=== PATIENT | female | born 1980 | race Caucasian/White ===

== ENCOUNTER 2024-02-03 14:27 | Inpatient (IN) ==
[2024-02-03] MEDS: MoRPHine SULFATE 4 MG/ML 1 ML CARP\\VIAL IV STA (15:44)
--- NOTE | 2024-02-03 15:46 | Emergency Department Note ---
Impression & Plan Acute diverticulitis, Abdominal pain, Anemia ED Provider Note NAME: ANDREA MCBRIDE AGE: 43 SEX: F : 1980 ARRIVES VIA: Ambulance INFORMANT: Patient, ED PROVIDER(S): Franc De Leon MD CHIEF COMPLAINT: Abdominal pain MEDICAL DECISION MAKING: Patient presents due to concern for abdominal pain. IV was established and blood work was obtained. Patient reportedly to CT earlier today and records were attempted to be obtained. Patient ordered chest and abdominal x-rays to evaluate for possible free air given the patient is tender. Patient's blood work shows a normal white count. Anemia noted with a hemoglobin of 9. No priors for comparison with a normal platelet count. Kidney function is unremarkable urinalysis negative for blood or infection. Patient's plain films are unremarkable. I was able to receive the report from [facility] which showed chronic stranding and phlegmonous change without a definable fluid collection. Was also noted the left ovarian cyst. Patient did improvement after receiving IV morphine. I did message communicate with Dr. Kiran Higgins with general surgery the patient would be admitted to the medicine service. The patient was ordered IV Zosyn. Patient's pain has resolved after the pain medication. I did speak with Dr. Shukla with inpatient medicine service patient was admitted to the medicine service. Discussion w/ other healthcare providers: Dr. Kiran Higgins general surgery service Dr. Shukla inpatient medicine service Prior /Outside records reviewed: None Differential diagnosis: Appendicitis, ovarian cyst, ovarian torsion, ectopic , TOA, PID, diverticulitis, UTI, obstruction, inflammatory bowel disease, renal colic, PUD, pancreatitis, biliary pathology, hernia, volvulus, constipation, as well as other pathologies were considered. Diagnostics, as interpreted by me: ECG: None Cardiac monitoring: An order was placed for continuous cardiac monitoring. The monitor shows a rate of 102 with tachycardic and regular rhythm. Patient was placed on pulse oximetry Medical decision rules: None Imaging studies: I informally interpreted the patient's chest and abdominal series does not show obvious free air with formal report to follow. HPI: Patient presents due to concern for abdominal pain. Patient reports that she was seen at [facility] do boys earlier today and did have blood work completed along with CT abdomen pelvis and was told that she had inflammation of the intestines but no other concerning findings like appendicitis or diverticulitis. The patient reports a prior bout of diverticulitis David follow-up with general surgery tomorrow. Patient states that her pain was fairly tolerable but upon leaving the emergency department at [facility] the patient developed some worsening pain and upon getting home felt so much pain as though she was going to pass out as she got lightheaded and dizzy. The patient states that she was able to sit in a recliner but given that her pain was 10 out of 10 and went from her periumbilical area to her vaginal area. Patient called EMS and then presented here for further evaluation treatment. She did receive fentanyl and route. Patient states that this did improve but she is having recurrence of pain. Patient denies any vaginal bleeding or discharge. LMP was about 2 weeks ago and normal for her. Patient denies any falls or trauma. She does report that she has had some chronic abdominal pain that began about 2 weeks ago insidious in nature but seem to get progressively worse and why she presented to [facility] emergency department today. PAST MEDICAL HISTORY: See Below PAST SURGICAL HISTORY: See Below SOCIAL HISTORY: See Below HOME MEDICATIONS: See Below ALLERGIES: See Below VITALS: See Below PHYSICAL EXAMINATION: GENERAL: NAD, non-toxic. EYE EXAM: Normal conjunctiva. PERRL, no anisocoria and EOM's grossly intact w/o pain. OROPHARYNX: Moist mucus membranes, grossly normal dentition. NECK: Trachea midline, no stridor. LUNGS: Clear to auscultation. Normal chest wall mechanics. HEART: NSR, no MRG. ABDOMEN: Abdomen soft, diffuse abdominal pain, no masses, no rebound or guarding. BACK: No CVA TTP. SKIN: No rashes and no bruising. UPPER EXTREMITIES: Upper extremities are grossly normal. LOWER EXTREMITIES: Grossly normal, no edema. NEURO EXAM: A&O x3, cranial nerves II-XII grossly intact, normal speech, moves all 4 extremities. Past Med/Surg History Problem List (Updated 02/04/24 @ 11:06 by Franc De Leon MD) Anemia (Acute) Abdominal pain (Acute) Gastric bypass status for obesity Acute diverticulitis (Acute) Social History Smoking Status: Unknown if ever smoked Hx Alcohol Use: No Hx Substance Use: No Preferred Language: Swedish Communication Ability: Effective Cigar Head Pegger Required: No Beliefs That Will Affect Care: None Current Living Situation: Family Other Information That Helps Us Care for You: No Feels Safe at Home: Yes Safety Concerns: Feels Safe At This Time Assistive Devices: None Allergies Allergies Allergy/AdvReac Type Severity Reaction Status Date / Time No Known Allergies Allergy Unverified 02/03/24 15:44 Home Meds Home Medications Medication Instructions Recorded Confirmed No Known Home Medications 02/03/24 02/03/24 Results & Data (ED) Vital Signs Vital Signs - 24 hr 02/03/24 14:28 02/03/24 14:40 02/03/24 15:38 Temperature 37.4 C Temperature Source Oral Pulse Rate 88 86 Pulse Rate [Right] Respiratory Rate 16 Respiratory Effort / Characteristics Non-Labored Spontaneous Respiratory Depth Normal Respiratory Pattern Regular Blood Pressure 110/68 Blood Pressure [Right Arm] Blood Pressure Mean 82 Blood Pressure Mean [Right Arm] Pulse Oximetry 97 Oxygen Delivery Method Room Air Room Air Sepsis Recent Fever Within 48 Hours No Sepsis New/Unexplained Change in Mental Status N/A Sepsis Action Taken by Nursing No Action Required 02/03/24 15:42 02/03/24 16:31 02/03/24 17:42 Temperature Temperature Source Pulse Rate Pulse Rate [Right] 92 H 110 H 118 H Respiratory Rate 20 24 16 Respiratory Effort / Characteristics Non-Labored Spontaneous Non-Labored Spontaneous Non-Labored Spontaneous Respiratory Depth Normal Normal Normal Respiratory Pattern Regular Regular Regular Blood Pressure Blood Pressure [Right Arm] 101/68 100/73 109/73 Blood Pressure Mean Blood Pressure Mean [Right Arm] 79 82 85 Pulse Oximetry 100 93 96 Oxygen Delivery Method Room Air Room Air Room Air Sepsis Recent Fever Within 48 Hours Sepsis New/Unexplained Change in Mental Status Sepsis Action Taken by Nursing 02/03/24 18:09 Temperature Temperature Source Pulse Rate 126 H Pulse Rate [Right] Respiratory Rate Respiratory Effort / Characteristics Respiratory Depth Respiratory Pattern Blood Pressure Blood Pressure [Right Arm] Blood Pressure Mean Blood Pressure Mean [Right Arm] Pulse Oximetry Oxygen Delivery Method Sepsis Recent Fever Within 48 Hours Sepsis New/Unexplained Change in Mental Status Sepsis Action Taken by Usp Medications Current Medication List: was personally reviewed by me Laboratory Data Attestation: I reviewed the patient's lab results. 02/04/24 07:22 02/04/24 07:22 Lab Results 02/03/24 02/03/24 Range/Units 14:35 15:10 WBC 8.25 (4.8-10.8) K/ul RBC 3.74 L (4.20-5.40) M/uL Hgb 9.2 L (12.0-16.0) g/dl Hct 29.6 L (37.0-47.0) % MCV 79.1 L (80.0-100.0) fL MCH 24.6 L (25.0-34.0) pg MCHC 31.1 L (32.0-36.0) g/dL RDW Std Deviation 43.3 (36.4-46.3) fL RDW Coeff of Mita 15.0 H (11.5-14.5) % Plt Count 326 (130-400) K/uL MPV 9.9 (9.4-12.4) fL Immature Gran % (Auto) 0.2 % Neut % (Auto) 83.5 % Lymph % (Auto) 9.5 % Trigg % (Auto) 6.4 % Eos % (Auto) 0.2 % Baso % (Auto) 0.2 % Neut # (Auto) 6.88 H (1.40-6.50) K/uL Lymph # (Auto) 0.78 L (1.20-3.40) K/uL Trigg # (Auto) 0.53 (0.11-0.59) K/uL Eos # (Auto) 0.02 (0.00-0.50) K/uL Baso # (Auto) 0.02 (0.00-0.20) K/uL Immature Gran # (Auto) 0.02 (0.01-0.20) K/uL Sodium 138 (136-145) mmol/L Potassium 3.9 (3.5-5.1) mmol/L Chloride 105 (98-107) mmol/L Carbon Dioxide 27 (21-32) mmol/L Anion Gap 6 (3-11) BUN 10 (6-23) mg/dl Creatinine 0.64 (0.6-1.2) mg/dl Est Cr Clr Drug Dosing 123.0 ml/min eGFR 113.09 BUN/Creatinine Ratio 15.6 (10-20) Glucose 89 (70-99(Fasting)) mg/dl Calcium 8.7 (8.6-10.3) mg/dl Total Bilirubin 0.4 (0.2-1.0) mg/dl AST 13 (13-39) U/L ALT 18 (7-52) U/L Alkaline Phosphatase 80 (34-104) U/L Total Protein 6.7 (6.0-8.3) gm/dl Albumin 3.7 (3.4-5.0) gm/dl Globulin 3.0 (2.5-4.0) gm/dl Albumin/Globulin Ratio 1.2 (0.9-2) Lipase 18 (11-82) U/L Urine Color Yellow Urine Appearance Clear (Clear) Urine pH 6.5 (4.5-7.5) Ur Specific [place] > 1.045 H (1.000-1.030) Urine Protein Negative (Negative) Urine Glucose (UA) Negative (Negative) Urine Ketones Negative (Negative) Urine Blood Negative (Negative) Urine Nitrite Negative (Negative) Urine Bilirubin Negative (Negative) Urine Urobilinogen Negative (Negative) Ur Leukocyte Esterase Negative (Negative) Administered Medications Heparin Sodium (Porcine) (Heparin Sod 5,000 Unit/0.5 Ml Vial) 5,000 units SQ Q12 [facility] Stop: 03/04/24 20:59 Last Admin: 02/04/24 09:25 Dose: 5,000 units Documented By: Admin: 02/03/24 20:12 Dose: 5,000 units Documented By: MARK Piperacillin Sod/Tazobactam Sod (Zosyn) 4.5 gm in 100 mls @ 25 mls/hr IV Q8H [facility]; Protocol Stop: 02/13/24 22:59 Last Admin: 02/04/24 09:16 Dose: 25 mls/hr Documented By: Infusion: 02/04/24 03:34 Dose: Infused Documented By: Admin: 02/03/24 22:29 Dose: 25 mls/hr Documented By: VIOLETTE Lactated Ringer's (Lr) 1,000 mls @ 125 mls/hr IV .Q8H [facility] Stop: 02/04/24 19:14 Last Admin: 02/04/24 04:27 Dose: 125 mls/hr Documented By: Infusion: 02/04/24 03:40 Dose: Infused Documented By: Admin: 02/03/24 19:40 Dose: 125 mls/hr Documented By: MARK Lorazepam (Lorazepam 2 Mg/1 Ml Vial) 0.25 mg IV DAILY PRN PRN Reason: Anxiety Stop: 02/05/24 22:56 Last Admin: 02/04/24 09:13 Dose: 0.25 mg Documented By: Admin: 02/03/24 23:14 Dose: 0.25 mg Documented By: VIOLETTE Morphine Sulfate (Morphine Sulfate 4 Mg/Ml 1 Ml Carp\Vial) 3 mg IV Q4H PRN PRN Reason: Pain Stop: 02/17/24 19:12 Last Admin: 02/04/24 03:46 Dose: 3 mg Documented By: Admin: 02/03/24 23:13 Dose: 3 mg Documented By: VIOLETTE Ondansetron HCl (Ondansetron Inj 2 Mg/Ml 2 Ml Vial) 4 mg IV Q6H PRN PRN Reason: Nausea And Vomiting Stop: 03/04/24 19:12 Last Admin: 02/03/24 20:19 Dose: 4 mg Documented By: MAKR Discontinued Medications Piperacillin Sod/Tazobactam Sod (Zosyn) 4.5 gm in 100 mls @ 200 mls/hr IV NOW ONE; Protocol Stop: 02/03/24 18:56 Last Infusion: 02/03/24 19:54 Dose: Infused Documented By: Admin: 02/03/24 18:48 Dose: 200 mls/hr Documented By: SAMPSON Ioversol (Optiray 320 100ml) 100 ml IV ONCE ONE Stop: 02/04/24 06:10 Last Admin: 02/04/24 06:10 Dose: 93 ml Documented By: BALJEET Ketorolac Tromethamine (Ketorolac 30 Mg/Ml Vial) 30 mg IV NOW ONE Stop: 02/04/24 05:48 Last Admin: 02/04/24 05:54 Dose: 30 mg Documented By: VIOLETTE Morphine Sulfate (Morphine Sulfate 4 Mg/Ml 1 Ml Carp\Vial) 8 mg IV NOW STA Stop: 02/03/24 15:32 Last Admin: 02/03/24 15:44 Dose: 8 mg Documented By: SAMPSON Morphine Sulfate (Morphine Sulfate 4 Mg/Ml 1 Ml Carp\Vial) 4 mg IV Q6H PRN PRN Reason: Pain Stop: 02/17/24 19:12 Last Admin: 02/03/24 20:19 Dose: 4 mg Documented By: Vadim Imaging Data Radiologist's Impression: Chest/Abdomen X-ray 02/03/24 15:31 XR abdomen 2V w PA chest CLINICAL HISTORY: upright, diffuse ab pain TECHNIQUE: 2 views of the abdomen were obtained. A single view of the chest was obtained. Comparison: None available at the time of this dictation. FINDINGS: No lines and tubes are seen. The cardiomediastinal silhouette is normal. The lungs are clear. No evidence of pleural effusion or pneumothorax. The osseous structures are grossly unremarkable. The bowel gas pattern is nonobstructive. A moderate amount of stool is noted within the large bowel. IMPRESSION: Nonobstructive bowel gas pattern. ACT 112: Negative or not required by law. Electronically signed by: Homero Foster M.D. 02/03/2024 4:27 PM Discharge Plan Visit Data Chief Complaint: Abdominal Pain Stated Complaint: ABDOMINAL PAIN ED Provider: Franc De Leon Discharge Problem: Acute diverticulitis, Abdominal pain, Anemia Patient Disposition: Admitted As Inpatient Discharge Instructions Interventions: ED Discharge Assessment Last Done: 02/03/24 20:37 Discharge Problem: Abdominal pain Qualifiers: Abdominal location: generalized Qualified Code(s): R10.84 - Generalized abdominal pain Anemia Qualifiers: Anemia type: unspecified type Qualified Code(s): D64.9 - Anemia, unspecified
[2024-02-03 15:57] LABS: Appearance Urine Clear (Clear); Bilirubin Urine Negative (Negative); Blood Urine Negative (Negative); Color Urine Yellow; Glucose Urine UA Negative (Negative); Ketones Urine Negative (Negative); Leukocyte Esterase Urine Negative (Negative); Nitrite Urine Negative (Negative); Protein Urine Negative (Negative); Specific Gravity Urine > 1.045 (1.000-1.030); Urobilinogen Urine Negative (Negative); pH Urine 6.5 (4.5-7.5)
[2024-02-03 16:01] LABS: Basophils # (auto) 0.02 K/uL (0.00-0.20); Basophils % (auto) 0.2 %; Eosinophils # (auto) 0.02 K/uL (0.00-0.50); Eosinophils % (auto) 0.2 %; Hematocrit (blood only) 29.6 % (37.0-47.0); Hemoglobin 9.2 g/dl (12.0-16.0); Immature Granulocytes # (auto) 0.02 K/uL (0.01-0.20); Immature Granulocytes % (auto) 0.2 %; Lymphocytes # (auto) 0.78 K/uL (1.20-3.40); Lymphocytes % (auto) 9.5 %; Mean Corpuscular Hemoglobin 24.6 pg (25.0-34.0); Mean Corpuscular Hgb Conc 31.1 g/dL (32.0-36.0); Mean Corpuscular Volume 79.1 fL (80.0-100.0); Mean Platelet Volume 9.9 fL (9.4-12.4); Monocytes # (auto) 0.53 K/uL (0.11-0.59); Monocytes % (auto) 6.4 %; Neutrophils # (auto) 6.88 K/uL (1.40-6.50); Neutrophils % (auto) 83.5 %; Platelet Count 326 K/uL (130-400); RDW Standard Deviation 43.3 fL (36.4-46.3); Red Blood Count 3.74 M/uL (4.20-5.40); White Blood Count 8.25 K/ul (4.8-10.8)
[2024-02-03 16:07] LABS: Albumin Globulin Ratio 1.2 (0.9-2); Albumin Level 3.7 gm/dl (3.4-5.0); BUN Creatinine Ratio 15.6 (10-20); Bilirubin,Total 0.4 mg/dl (0.2-1.0); Calcium 8.7 mg/dl (8.6-10.3); Potassium 3.9 mmol/L (3.5-5.1); Total Protein 6.7 gm/dl (6.0-8.3)
--- NOTE | 2024-02-03 16:28 | XRay Report ---
XR abdomen 2V w PA chest CLINICAL HISTORY: upright, diffuse ab pain TECHNIQUE: 2 views of the abdomen were obtained. A single view of the chest was obtained. Comparison: None available at the time of this dictation. FINDINGS: No lines and tubes are seen. The cardiomediastinal silhouette is normal. The lungs are clear. No evid ence of pleural effusion or pneumothorax. The osseous structures are grossly unremarkable. The bowel gas pattern is nonobstructive. A moderate amount of stool is noted within the large bowel. IMPRESSION: Nonobstructive bowel gas pattern. ACT 112: Negative or not required by law. Electronically signed by: Homero Foster M.D. 02/03/2024 4:27 PM
[2024-02-03] MEDS: PIPERACILLIN/TAZOBACTAM 4.5 GM/100 ML BAG IV ONE (18:48)
--- NOTE | 2024-02-03 19:25 | History & Physical Report ---
Date of Service February 03, 2024 Assessment & Plan (1) Acute diverticulitis: Plan: Complex radiological finding of diverticulitis/mesenteric abscess/possible mass Abdominal pain for the last 2 weeks with progressive worsening of pain associate with nausea and diarrhea Was evaluated in [facility] at the [facility] with a CT scan of the abdomen pelvis and was sent home without any antibiotic Pain got worse and came to the emergency room at [facility] CT report was found to have diverticulitis with phlegmonous change Started on intravenous Zosyn and surgery was consulted Will give her n.p.o. and will give IV fluid and pain medications and nausea medications Chest/abdomen x-ray did not show any free fluid-perforation has been ruled out CT scan of the abdomen pelvis with IV and oral contrast on that was done at [facility] and she was supposed to be seen by Dr. 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 Please note that there is an overlap in the imaging appearance colitis/diverticulitis and malignancy and colonoscopy should be considered to exclude underlying neoplasm. Inflammatory changes of sigmoid colon extending to uterine fundus and a adjacent small bowel. This may predispose to development of fistula. Epic chart is showing that she was prescribed ciprofloxacin and Flagyl but she has not been taking any antibiotic as of today Colonoscopy has been scheduled with Dr. Pandya on 02/10/2024 Diarrhea Will check a stool for C. difficile and culture Likely secondary to diverticulitis okay (2) Gastric bypass status for obesity: History of Present Illness Chief Complaint: Abdominal pain mostly upper with nausea and diarrhea for the last 2 weeks, with worsening of pain today Primary Care Provider: Annie Ch DO She is a 43-year-old female significant past medical history of gastric bypass surgery years ago and does not take any regular medications apparently has been complaining of abdominal pain started around and above the umbilicus 2 weeks ago. The pain was associated with nausea but no vomiting but she was having diarrhea occasionally for the last 2 weeks. The pain was increasing and she went to [facility] and has had a CAT scan of the abdomen and pelvis and following that she was sent home without giving any antibiotic and was told to keep her appointment with her outpatient general surgery for possible diverticulitis. His condition of pain increased this afternoon associated with dizziness and near fainting and also profuse sweating. He denies any abdominal distention or any shortness of breath associated with it and did not have any temperature. Denies any problem with urination. She was noted to be afebrile but tachycardic at 126 in the emergency room her white count is normal but the report of the CAT scan that was done and was showed diverticulitis involving the colon with phlegmonous change. She was started with intravenous antibiotic with Zosyn surgery was consulted and she was admitted to [facility] telemetry unit with condition of care. Allergies Allergy/AdvReac Type Severity Reaction Status Date / Time No Known Allergies Allergy Unverified 02/03/24 15:44 Home Medications Medication Instructions Recorded Confirmed Type No Known Home Medications 02/03/24 02/03/24 History Past Med/Surg History Problem List (Updated 02/03/24 @ 19:21 by Chanel Shukla MD) Gastric bypass status for obesity Acute diverticulitis Social History Smoking Status: Never smoker Feels Safe at Home: Yes Review of Systems Review of Systems: All systems reviewed and are unremarkable except as noted below Physical Exam Physical Exam: Lying in bed with acute distress due to abdominal pain and nausea Constitutional: well developed, well nourished, + ill appearing and + obese Eyes: PERRL, conjunctivae normal, anicteric sclerae ENMT: external ear and nose normal, oropharynx normal Neck: trachea midline, no thyromegaly Respiratory: no respiratory distress Auscultation: lungs clear to auscultation bilaterally Cardiovascular: Rate/Rhythm: regular rate, regular rhythm and + tachycardic Heart Sounds: normal S1 and normal S2; no murmur Gastrointestinal (Abdomen): Inspection/Auscultation: normal bowel sounds; abdomen not distended Percussion/Palpation: + abdomen tender (All over tenderness mostly) and abdomen soft Musculoskeletal: No acute arthritis involving any of the joint Neurologic: normal touch/pain/proprioception and moves all extremities; no focal motor deficits Lymphatic: no cervical or axillary lymphadenopathy Results & Data Results & Data Vital Signs (Past 12 Hours) Vital Signs Temp Pulse Pulse Resp BP BP Pulse Ox 02/03/24 18:09 126 H 02/03/24 17:42 118 H 16 109/73 96 02/03/24 16:31 110 H 24 100/73 93 02/03/24 15:42 92 H 20 101/68 100 02/03/24 15:38 02/03/24 14:40 86 02/03/24 14:28 37.4 C 88 16 110/68 97 O2 Del Method 02/03/24 18:09 02/03/24 17:42 Room Air 02/03/24 16:31 Room Air 02/03/24 15:42 Room Air 02/03/24 15:38 Room Air 02/03/24 14:40 02/03/24 14:28 Room Air Laboratory Results Short CBC 02/03/24 Range/Units 14:35 WBC 8.25 (4.8-10.8) K/ul Hgb 9.2 L (12.0-16.0) g/dl Hct 29.6 L (37.0-47.0) % Plt Count 326 (130-400) K/uL BMP 02/03/24 14:35 Sodium 138 Potassium 3.9 Chloride 105 Carbon Dioxide 27 BUN 10 Creatinine 0.64 Glucose 89 Calcium 8.7 Liver Function 02/03/24 Range/Units 14:35 Total Bilirubin 0.4 (0.2-1.0) mg/dl AST 13 (13-39) U/L ALT 18 (7-52) U/L Alkaline Phosphatase 80 (34-104) U/L Albumin 3.7 (3.4-5.0) gm/dl Urine 02/03/24 Range/Units 15:10 Urine Color Yellow Urine Appearance Clear (Clear) Urine pH 6.5 (4.5-7.5) Ur Specific [place] > 1.045 H (1.000-1.030) Urine Protein Negative (Negative) Urine Glucose (UA) Negative (Negative) Medications Administered Current Inpatient Medications Heparin Sodium (Porcine) (Heparin Sod 5,000 Unit/0.5 Ml Vial) 5,000 units SQ Q12 [facility] Stop: 03/04/24 20:59 Piperacillin Sod/Tazobactam Sod (Zosyn) 4.5 gm in 100 mls @ 25 mls/hr IV Q8H [facility]; Protocol Stop: 02/13/24 19:14 Lactated Ringer's (Lr) 1,000 mls @ 125 mls/hr IV .Q8H [facility] Stop: 02/04/24 19:14 Morphine Sulfate (Morphine Sulfate 4 Mg/Ml 1 Ml Carp\Vial) 4 mg IV Q6H PRN PRN Reason: Pain Stop: 02/17/24 19:12 Ondansetron HCl (Ondansetron Inj 2 Mg/Ml 2 Ml Vial) 4 mg IV Q6H PRN PRN Reason: Nausea And Vomiting Stop: 03/04/24 19:12 Code Status & VTE Plan VTE Prophylaxis Plan VTE Prophylaxis will be ordered: Yes
[2024-02-03] MEDS: LACTATED RINGER'S 1,000 ML IV SCH (19:40)
[2024-02-03] MEDS: HEPARIN SOD 5,000 UNIT/0.5 ML VIAL SQ SCH (20:12)
[2024-02-03] MEDS: ONDANSETRON INJ 2 MG/ML 2 ML VIAL IV PRN (20:19)
[2024-02-03] MEDS: MoRPHine SULFATE 4 MG/ML 1 ML CARP\\VIAL IV PRN ×2 (20:19→23:13)
--- NOTE | 2024-02-03 20:38 | Surgery Consultation ---
<Statement entered by Elizabeth Velasquez - 02/04/24 12:35> Unfortunately the patient has not been on antibiotics and did not start treatment with he inflammatory changes on recent imaging obtained at [facility]. She now has perforation just shy of a planned appointment with colorectal surgery for further management. [facility] was consulted and felt they could provide some drainage for diagnostic purposes but would be unable to provide therapeutic drainage secondary to the diffuse nature of fluid. I have had the chance to explain to the patient the severity of her updated CT performed here this am and that we would give her an opportunity to improve now that she has been initiated on antibiotics to treat the colonic inflammation. She is very concerned about the potential of requiring a colostomy and would like to exhaust all conservative measures first if there is room to clinically. She has been less than 24 hours of admit, is HD stable and currently afebrile without leukocytosis at admission and while she is tender throughout her abdomen, she is not peritonitic. We will continue to monitor for changes that require surgical intervention. Date of Consultation February 03, 2024 Assessment & Plan (1) Acute diverticulitis: Patient is being admitted on the hospital service. From surgery perspective we recommend the following: Provide analgesics Provide antiemetics Implement bowel rest with n.p.o. status Provide IV fluid for hydration Follow serial labs The patient has been initiated on antibiotics in form of Zosyn and this should continue At the present time the patient is nontoxic-appearing. She does have a slight tachycardia but she is normotensive without fever or leukocytosis. Will continue with conservative plan as noted above with further recommendations to follow based on her clinical course as unfolds I did discuss with the patient though the best to not have to perform emergency surgery as she has not had an up-to-date colonoscopy and she currently does not have a prep bowel which in the event of emergent surgery would likely necessitate a colostomy which she would like to avoid History of Present Illness Reason for Consultation: Diverticulitis History of Present Illness Patient says that she has had problems with diverticulitis since October of this year. She has thus far received her medical care at various medical facilities in the [facility] including [place] and [facility]. Patient says that she was most recently admitted to the hospital in December of this year and discharged on December 23. She says that she was discharged on antibiotics and these concluded approximately 1 month ago. The patient notes that due to her ongoing diverticulitis she did have a CT scan performed as an outpatient at [facility]. I do not have these images available for review but I did obtain a CT scan report which showed patient had pelvic and perisigmoid inflammatory changes with concern for a mesenteric abscess or fistula. There were also inflammatory changes noted near the sigmoid colon which extended to the uterine fundus and adjacent small bowel. Patient does note that she was scheduled to see a colorectal surgeon by the name of Dr. Walker at [place], [place] in the next 1 to 2 days. She also reports that she has never had a colonoscopy but since her diverticulitis initially began this has been scheduled multiple times but had to be postponed due to diverticular flares. She does note that her most recent colonoscopy was planned to be performed on February 09 of this year. The patient began to have abdominal pain again today which we delineated further below. She initially sought care at a facility in the [facility]. She did undergo a CT scan today that showed phlegmonous changes in the sigmoid colon with no definite abscess noted. Patient presented to [facility] today secondary to ongoing abdominal pain. She does note that the pain was different than what she usually experienced during her diverticular attacks. She notes the pain was primarily periumbilical and was nonradiating. Patient denies any nausea or vomiting. She denies any fevers, shakes, or chills. She denies any melanotic bowel movements and notes that her bowels have been running loose. She does report she has a history of gastric sleeve in 2021 performed in [place], [place]. She also notes that she has had a in the past. This is a 43-year-old female who has had ongoing issues with diverticulitis. Since arrival to [facility] today the patient has had an obstruction series performed that showed a nonobstructive bowel gas pattern. Patient has also had labs which include CBC white blood cell count is not elevated. Patient's hemoglobin and hematocrit are 9.2 and 29.6. Platelet count was 326,000. Chemistry profile showed sodium and potassium as well as the BUN and creatinine were all normal. There is no elevation of patient's LFTs or lipase. Urinalysis was not indicative of infection. (This is the patient's first visit to [facility] and thus there are no labs available for comparison) Concerning past medical history patient has a history of diverticulitis Concerning past surgical history of this is delineated above Concerning social history she does not smoke Concerning family history she did not report a family history of diverticulitis. Allergies Allergy/AdvReac Type Severity Reaction Status Date / Time No Known Allergies Allergy Unverified 02/03/24 15:44 Home Medications Medication Instructions Recorded Confirmed Type No Known Home Medications 02/03/24 02/03/24 History Patient History Social History Smoking Status: Unknown if ever smoked Hx Alcohol Use: No Hx Substance Use: No Preferred Language: Danish Communication Ability: Effective Pie Filling Mixer Required: No Beliefs That Will Affect Care: None Current Living Situation: Family Other Information That Helps Us Care for You: No Feels Safe at Home: Yes Safety Concerns: Feels Safe At This Time Assistive Devices: None Review of Systems Review of Systems: All systems reviewed & are unremarkable except as noted in HPI & below Physical Exam Constitutional: WD/WN, vitals as above Eyes: no conjunctival abnormality ENMT: Ears: no hearing impairment and no external ear abnormality Mouth: no oropharynx abnormality Neck: trachea midline Respiratory: normal respiratory effort; no respiratory distress and no labored breathing Cardiovascular: Rate/Rhythm: regular rate and regular rhythm Gastrointestinal (Abdomen): Abdomen is soft and nondistended. It is nonrigid. There is no rebound tenderness or guarding but patient did have diffuse tenderness noted throughout her abdomen Musculoskeletal: No calf tenderness Skin: no rashes Neurologic: moves all extremities Psychiatric: A+Ox3, euthymic affect Results & Data Vital Signs (Past 12 Hours) Vital Signs Temp Pulse Pulse Resp BP BP Pulse Ox 02/03/24 20:18 117 H 27 H 104/71 94 02/03/24 19:19 118 H 23 91/69 L 94 02/03/24 18:09 126 H 02/03/24 17:42 118 H 16 109/73 96 02/03/24 16:31 110 H 24 100/73 93 02/03/24 15:42 92 H 20 101/68 100 02/03/24 15:38 02/03/24 14:40 86 02/03/24 14:28 37.4 C 88 16 110/68 97 O2 Del Method 02/03/24 20:18 Room Air 02/03/24 19:19 Room Air 02/03/24 18:09 02/03/24 17:42 Room Air 02/03/24 16:31 Room Air 02/03/24 15:42 Room Air 02/03/24 15:38 Room Air 02/03/24 14:40 02/03/24 14:28 Room Air PG Care Time/CCT Total # of Minutes Spent Total Time Spent with Patient: Total time spent is greater than 50% in coordination of care (as documented) at patient's floor/unit and/or counseling patient: Coding Level of Care Code 11474 OFFICE CONSULT LVL Diagnoses Acute diverticulitis K57.92
[2024-02-03] MEDS ORDERED: INFLUENZA VACC TS2024-25(6m+)/PF (IIV3) 0.5mL Syr IM ONE (21:00)
[2024-02-03] MEDS: PIPERACILLIN/TAZOBACTAM 4.5 GM/100 ML BAG IV SCH (22:29)
[2024-02-03] MEDS: LORazepam 2 MG/1 ML VIAL IV PRN (23:14)
[2024-02-04] MEDS: KETOROLAC 30 MG/ML VIAL IV ONE (05:54)
[2024-02-04] MEDS: OPTIRAY 320 100ml IV ONE (06:10)
--- NOTE | 2024-02-04 07:12 | CT Scan Report ---
Exam(s): CT ABDOMEN + PELVIS With Contrast IV Amt: 93 ml optiray 320 EXAM: CT Abdomen and Pelvis With Intravenous Contrast CLINICAL HISTORY: Reason for exam: severe right sided abdominal pain. TECHNIQUE: Axial computed tomography images of the abdomen and pelvis with intravenous contrast. CTDI is 25.89 mGy and DLP is 1366.68 mGy-cm. Automated exposure control was utilized for the study. A dose lowering technique was utilized adhering to the principles of ALARA. CONTRAST: Patient received 93 ml optiray 320 of IV contrast COMPARISON: No relevant prior studies available. FINDINGS: Lung bases: Mild areas of atelectasis in the posterior inferior aspects of the lower lobes. ABDOMEN: Liver: Unremarkable. No mass. Gallbladder and bile ducts: Gallstones. No ductal dilation. Pancreas: Unremarkable. No mass. No ductal dilation. Spleen: Unremarkable. No splenomegaly. Adrenals: Unremarkable. No mass. Kidneys and ureters: Unremarkable. No solid mass. No hydronephrosis. Stomach and bowel: There is marked inflammatory process in the pelvis. This is centered around the sigmoid colon where there is abnormal wall thickening. There are some diverticula in the region. This is most suspicious for acute diverticulitis.. There are a few abnormal extraluminal air collections anterior to the thickened sigmoid colon consistent with perforation. No obstruction. PELVIS: Appendix: No findings to suggest acute appendicitis. Bladder: Unremarkable. No mass. Reproductive: 4 cm left ovarian cyst. ABDOMEN and PELVIS: Intraperitoneal space: A small amount of free fluid is seen around the liver and in the right paracolic gutter as well as the lower pelvis. The fluid in the lower right paracolic gutter showed some enhancement of the surrounding peritoneum and could be organizing into an early abscess. Bones/joints: No acute findings. Soft tissues: Umbilical hernia containing fat. Vasculature: Unremarkable. No abdominal aortic aneurysm. Lymph nodes: Unremarkable. No enlarged lymph nodes. IMPRESSION: Marked inflammatory process in the pelvis. This is likely due to acute diverticulitis of the sigmoid colon. There are extraluminal air collections adjacent to the sigmoid colon consistent with perforation. Free fluid in the abdomen and pelvis. A fluid collection in the lower right paracolic gutter showed some peripheral enhancement of the peritoneum and could be organizing into an early abscess. Communications: Call Doctor Pneumoperitoneum, new or unexpected Electronically signed by: Les Serra MD 02/04/24 07:11 AM
[2024-02-04 08:35] LABS: Basophils # (auto) 0.03 K/uL (0.00-0.20); Basophils % (auto) 0.3 %; Hematocrit (blood only) 27.9 % (37.0-47.0); Hemoglobin 8.6 g/dl (12.0-16.0); Immature Granulocytes # (auto) 0.04 K/uL (0.01-0.20); Immature Granulocytes % (auto) 0.4 %; Lymphocytes # (auto) 0.96 K/uL (1.20-3.40); Lymphocytes % (auto) 9.5 %; Mean Corpuscular Hemoglobin 24.3 pg (25.0-34.0); Mean Corpuscular Hgb Conc 30.8 g/dL (32.0-36.0); Mean Corpuscular Volume 78.8 fL (80.0-100.0); Mean Platelet Volume 9.7 fL (9.4-12.4); Monocytes # (auto) 0.71 K/uL (0.11-0.59); Neutrophils # (auto) 8.36 K/uL (1.40-6.50); Neutrophils % (auto) 82.8 %; Platelet Count 262 K/uL (130-400); RDW Coefficient of Variation 15.3 % (11.5-14.5); RDW Standard Deviation 43.8 fL (36.4-46.3); Red Blood Count 3.54 M/uL (4.20-5.40)
[2024-02-04 08:43] LABS: Albumin Globulin Ratio 1.2 (0.9-2); Albumin Level 3.3 gm/dl (3.4-5.0); BUN Creatinine Ratio 16.9 (10-20); Bilirubin,Total 0.9 mg/dl (0.2-1.0); Calcium 8.2 mg/dl (8.6-10.3); Creatinine Clr Calc Pharmacy 110.8 ml/min; Globulin 2.7 gm/dl (2.5-4.0); Magnesium 1.5 mg/dl (1.7-2.4); Potassium 3.5 mmol/L (3.5-5.1)
--- NOTE | 2024-02-04 09:40 | Surgery Progress Note ---
Date of Service February 04, 2024 Assessment & Plan (1) Acute diverticulitis: Plan: Pt here w/ abdominal pain, history of diverticulitis diagnosed on multiple OSH CT scans - CT scan obtained here at our facility which shows "marked inflammatory process in the pelvis. This is likely due to acute diverticulitis of the sigmoid colon. There are extraluminal air collections adjacent to the sigmoid colon consistent with perforation. Free fluid in the abdomen and pelvis. A fluid collection in the lower right paracolic gutter showed some peripheral enhancement of the peritoneum and could be organizing into an early abscess" - WBC 10. Temps 99F, HRs 90-120s, BPs 90-60s - On exam abdomen soft with generalized discomfort to palpation - recurring flare ups of diverticulitis for last several months... now with worsening pain and infection/inflammation on ct scan - Unfortunately our IR dept is out this week, we would recommend patient's images be reviewed by OSH such as [facility] to see if they could tap her fluid collections. if not we will have to make decision on possible surgical intervention for washout and probable susannah's - Discussed with hospitalists who will help coordinate conversations with OSH for review - We will follow closely. continue npo/ivf/iv abx As above. Patient seen chart reviewed. I reviewed the CT scan images myself. There certainly is a lot of inflammation and this has essentially been going on intermittently since October. I do believe we will have to be more aggressive in treating this. We will reach out to [facility] to see if there are interventional radiologist believes he can drain the abscess. If so we could give her several days of n.p.o./IV antibiotics and drain the abscess and see how she does clinically. If they do not believe they could safely drain the abscess or if she does not improve clinically we would likely have to proceed with a Susannah procedure/abdominal washout. We discussed all this with her. I will also discussed with Dr. Kiran Higgins regarding the plan. Admission and Anticipated Discharge Date Admission Date: February 03, 2024 Subjective Patient feeling a tiny bit better this AM if she doesn't move and with the help of pain medication. Has been dealing with acute onset of severe pain now since yesterday. Physical Exam Physical Exam: awake, no distress but appears fatigued Respiratory: normal respiratory effort Gastrointestinal (Abdomen): Inspection/Auscultation: abdomen not distended Percussion/Palpation: + abdomen tender (generalized discomfort to palpation ) and abdomen soft Results & Data Vital Signs (Past 12 Hours) Vital Signs Temp Pulse Pulse Resp BP Pulse Ox O2 Del Method 02/04/24 07:59 99.0 F 95 H 18 94/66 L 93 Room Air 02/04/24 02:18 99.3 F 100 H 18 95/65 L 89 L Room Air 02/04/24 00:46 101 H 02/03/24 22:31 97.7 F 95 H 18 98/60 L 96 Room Air PG Care Time/CCT Total # of Minutes Spent Total Time Spent with Patient: Total time spent is greater than 50% in coordination of care (as documented) at patient's floor/unit and/or counseling patient: Coding Level of Care Code 85079 SUB INP/OBS CARE 05/02MIN Diagnoses Acute diverticulitis K57.92
--- NOTE | 2024-02-04 13:47 | Hospitalist Progress Note ---
Date of Service February 04, 2024 Assessment & Plan (1) Acute diverticulitis: Plan: Per admitting provider w/ addendum Complex radiological finding of diverticulitis/mesenteric abscess/possible mass Abdominal pain for the last 2 weeks with progressive worsening of pain associate with nausea and diarrhea Was evaluated in [facility] at the [facility] with a CT scan of the abdomen pelvis and was sent home without any antibiotic Pain got worse and came to the emergency room at [facility] CT report was found to have diverticulitis with phlegmonous change Started on intravenous Zosyn and surgery was consulted n.p.o. and will give IV fluid and pain medications and nausea medications Chest/abdomen x-ray did not show any free fluid-perforation has been ruled out CT scan of the abdomen pelvis with IV and oral contrast on that was done at [facility] and she was supposed to be seen by Dr. 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 Please note that there is an overlap in the imaging appearance colitis/diverticulitis and malignancy and colonoscopy should be considered to exclude underlying neoplasm. Inflammatory changes of sigmoid colon extending to uterine fundus and a adjacent small bowel. This may predispose to development of fistula. Epic chart is showing that she was prescribed ciprofloxacin and Flagyl but she has not been taking any antibiotic as of today Colonoscopy has been scheduled with Dr. Pandya on 02/10/2024 02/04/2024 Overnight developed increased abd. apin and CT abd was obtained - contacted by the radiologist about the findings - Marked inflammatory process in the pelvis. This is likely due to acute diverticulitis of the sigmoid colon. There are extraluminal air collections adjacent to the sigmoid colon consistent with perforation. Free fluid in the abdomen and pelvis. A fluid collection in the lower right paracolic gutter showed some peripheral enhancement of the peritoneum and could be organizing into an early abscess. Contacted general surgery immediately and pt was again evaluated by the surgical team. Recommend IR. Contacted transfer center and discussed possible IR intervention w/ [facility] Sarah - triage officer and radiologist - IR recommended surgery -> updated surgical team again. Update: Pt continued to be on IV zosyn and closely monitored. Developed fever in late afternoon - and was taken to OR by the surg. team. Diarrhea stool for C. difficile and culture Likely secondary to diverticulitis (2) Gastric bypass status for obesity: Admission and Anticipated Discharge Date Admission Date: February 03, 2024 Subjective Pt seen in follow up of abd. pain, diverticulitis Messaged by stat radiology read- about poss. perforations, and developing abscess -> surgery contacted and discussed with. Also, contacted IR at [facility] - they recommend surgical treatment. Pt is laying in bed, continues to have abdominal pain. Currently afebrile. No chest pain or shortness of breath Update: Pt febrile and will be taken to OR for surgery this PM Review of Systems Review of Systems: All systems reviewed & are unremarkable except as noted in Subjective Physical Exam Physical Exam: Physical Exam: Constitutional: well developed, we ll nourished, + il l appearing Eyes: PERRL, conjunctiva e normal, anicteri c sclerae ENMT: external ear and n ose normal Neck: supple Respiratory: no respiratory dis tress Auscultatio n: lungs clear to auscultation bilat erally Cardiovascular: + tachycardic , no murmur Gastrointestinal ( Abdomen): + bowel sounds; ab domen not distende d , soft, + abdome n tender (mostly a t RLQ) Musculoskeletal: moves extremities Neurologic: awake, alert, spee ch fluent, answers appropriately, mo ves extremities Results & Data Results & Data Vital Signs (Past 12 Hours) Vital Signs Temp Pulse Pulse Resp BP Pulse Ox O2 Del Method 02/04/24 11:37 37.5 C 100 H 18 104/71 93 Room Air 02/04/24 07:59 37.2 C 95 H 18 94/66 L 93 Room Air 02/04/24 07:00 107 H 02/04/24 02:18 37.4 C 100 H 18 95/65 L 89 L Room Air Laboratory Results 02/04/24 02/04/24 02/03/24 Range/Units 07:22 07:16 15:10 WBC 10.10 (4.8-10.8) K/ul RBC 3.54 L (4.20-5.40) M/uL Hgb 8.6 L (12.0-16.0) g/dl Hct 27.9 L (37.0-47.0) % MCV 78.8 L (80.0-100.0) fL MCH 24.3 L (25.0-34.0) pg MCHC 30.8 L (32.0-36.0) g/dL RDW Std Deviation 43.8 (36.4-46.3) fL RDW Coeff of Mita 15.3 H (11.5-14.5) % Plt Count 262 (130-400) K/uL MPV 9.7 (9.4-12.4) fL Immature Gran % (Auto) 0.4 % Neut % (Auto) 82.8 % Lymph % (Auto) 9.5 % [place] % (Auto) 7.0 % Eos % (Auto) 0.0 % Baso % (Auto) 0.3 % Neut # (Auto) 8.36 H (1.40-6.50) K/uL Lymph # (Auto) 0.96 L (1.20-3.40) K/uL [place] # (Auto) 0.71 H (0.11-0.59) K/uL Eos # (Auto) 0.00 (0.00-0.50) K/uL Baso # (Auto) 0.03 (0.00-0.20) K/uL Immature Gran # (Auto) 0.04 (0.01-0.20) K/uL Sodium 137 (136-145) mmol/L Potassium 3.5 (3.5-5.1) mmol/L Chloride 104 (98-107) mmol/L Carbon Dioxide 25 (21-32) mmol/L Anion Gap 8 (3-11) BUN 12 (6-23) mg/dl Creatinine 0.71 (0.6-1.2) mg/dl Est Cr Clr Drug Dosing 110.8 ml/min eGFR 108.80 BUN/Creatinine Ratio 16.9 (10-20) Glucose 105 H (70-99(Fasting)) mg/dl Lactate 1.1 (0.4-2.0) mmol/L Calcium 8.2 L (8.6-10.3) mg/dl Phosphorus 4.0 (2.5-4.9) mg/dl Magnesium 1.5 L (1.7-2.4) mg/dl Total Bilirubin 0.9 D (0.2-1.0) mg/dl AST 10 L (13-39) U/L ALT 13 (7-52) U/L Alkaline Phosphatase 68 (34-104) U/L Total Protein 6.0 (6.0-8.3) gm/dl Albumin 3.3 L (3.4-5.0) gm/dl Globulin 2.7 (2.5-4.0) gm/dl Albumin/Globulin Ratio 1.2 (0.9-2) Lipase (11-82) U/L Urine Color Yellow Urine Appearance Clear (Clear) Urine pH 6.5 (4.5-7.5) Ur Specific [place] > 1.045 H (1.000-1.030) Urine Protein Negative (Negative) Urine Glucose (UA) Negative (Negative) Urine Ketones Negative (Negative) Urine Blood Negative (Negative) Urine Nitrite Negative (Negative) Urine Bilirubin Negative (Negative) Urine Urobilinogen Negative (Negative) Ur Leukocyte Esterase Negative (Negative) 02/03/24 Range/Units 14:35 WBC 8.25 (4.8-10.8) K/ul RBC 3.74 L (4.20-5.40) M/uL Hgb 9.2 L (12.0-16.0) g/dl Hct 29.6 L (37.0-47.0) % MCV 79.1 L (80.0-100.0) fL MCH 24.6 L (25.0-34.0) pg MCHC 31.1 L (32.0-36.0) g/dL RDW Std Deviation 43.3 (36.4-46.3) fL RDW Coeff of Mita 15.0 H (11.5-14.5) % Plt Count 326 (130-400) K/uL MPV 9.9 (9.4-12.4) fL Immature Gran % (Auto) 0.2 % Neut % (Auto) 83.5 % Lymph % (Auto) 9.5 % [place] % (Auto) 6.4 % Eos % (Auto) 0.2 % Baso % (Auto) 0.2 % Neut # (Auto) 6.88 H (1.40-6.50) K/uL Lymph # (Auto) 0.78 L (1.20-3.40) K/uL [place] # (Auto) 0.53 (0.11-0.59) K/uL Eos # (Auto) 0.02 (0.00-0.50) K/uL Baso # (Auto) 0.02 (0.00-0.20) K/uL Immature Gran # (Auto) 0.02 (0.01-0.20) K/uL Sodium 138 (136-145) mmol/L Potassium 3.9 (3.5-5.1) mmol/L Chloride 105 (98-107) mmol/L Carbon Dioxide 27 (21-32) mmol/L Anion Gap 6 (3-11) BUN 10 (6-23) mg/dl Creatinine 0.64 (0.6-1.2) mg/dl Est Cr Clr Drug Dosing 123.0 ml/min eGFR 113.09 BUN/Creatinine Ratio 15.6 (10-20) Glucose 89 (70-99(Fasting)) mg/dl Lactate (0.4-2.0) mmol/L Calcium 8.7 (8.6-10.3) mg/dl Phosphorus (2.5-4.9) mg/dl Magnesium (1.7-2.4) mg/dl Total Bilirubin 0.4 (0.2-1.0) mg/dl AST 13 (13-39) U/L ALT 18 (7-52) U/L Alkaline Phosphatase 80 (34-104) U/L Total Protein 6.7 (6.0-8.3) gm/dl Albumin 3.7 (3.4-5.0) gm/dl Globulin 3.0 (2.5-4.0) gm/dl Albumin/Globulin Ratio 1.2 (0.9-2) Lipase 18 (11-82) U/L Urine Color Urine Appearance (Clear) Urine pH (4.5-7.5) Ur Specific [place] (1.000-1.030) Urine Protein (Negative) Urine Glucose (UA) (Negative) Urine Ketones (Negative) Urine Blood (Negative) Urine Nitrite (Negative) Urine Bilirubin (Negative) Urine Urobilinogen (Negative) Ur Leukocyte Esterase (Negative) Medications Administered Current Inpatient Medications Heparin Sodium (Porcine) (Heparin Sod 5,000 Unit/0.5 Ml Vial) 5,000 units SQ Q12 [facility] Stop: 03/04/24 20:59 Last Admin: 02/04/24 09:25 Dose: 5,000 units Piperacillin Sod/Tazobactam Sod (Zosyn) 4.5 gm in 100 mls @ 25 mls/hr IV Q8H [facility]; Protocol Stop: 02/13/24 22:59 Last Infusion: 02/04/24 13:13 Dose: Infused Lactated Ringer's (Lr) 1,000 mls @ 125 mls/hr IV .Q8H [facility] Stop: 02/04/24 19:14 Last Admin: 02/04/24 13:12 Dose: 125 mls/hr Acetaminophen (Ofirmev) 1,000 mg in 100 mls @ 400 mls/hr IV Q8H PRN PRN Reason: Pain or Fever Stop: 02/07/24 05:47 Lorazepam (Lorazepam 2 Mg/1 Ml Vial) 0.25 mg IV DAILY PRN PRN Reason: Anxiety Stop: 02/05/24 22:56 Last Admin: 02/04/24 09:13 Dose: 0.25 mg Morphine Sulfate (Morphine Sulfate 4 Mg/Ml 1 Ml Carp\Vial) 3 mg IV Q4H PRN PRN Reason: Pain Stop: 02/17/24 19:12 Last Admin: 02/04/24 03:46 Dose: 3 mg Ondansetron HCl (Ondansetron Inj 2 Mg/Ml 2 Ml Vial) 4 mg IV Q6H PRN PRN Reason: Nausea And Vomiting Stop: 03/04/24 19:12 Last Admin: 02/03/24 20:19 Dose: 4 mg
[2024-02-04] MEDS ORDERED: ROCURONIUM BROMIDE 10 MG/ML 5 ML VIAL IV ONE (16:07)
[2024-02-04] MEDS ORDERED: DEXAMETHASONE SOD INJ 4 MG/ML VIAL ONE (16:07)
[2024-02-04] MEDS ORDERED: GLYCOPYRROLATE 0.2 MG/ML VIAL ONE (16:07)
[2024-02-04] MEDS ORDERED: ONDANSETRON INJ 2 MG/ML 2 ML VIAL ONE (16:07)
[2024-02-04] MEDS ORDERED: PROPOFOL IV EMULSION 10 MG/ML 20 ML VIAL IV ONE (16:07)
[2024-02-04] MEDS ORDERED: LIDOCAINE 2% 2 ML VIAL/AMP(20MG/ML) INFIL ONE (16:07)
[2024-02-04] MEDS ORDERED: MIDAZOLAM HCL 1 MG/ML 2ML VIAL ONE (16:08)
[2024-02-04] MEDS ORDERED: fentaNYL citrate PF 100 MCG/2 ML VIAL ONE ×3 (16:08→20:43)
[2024-02-04] MEDS ORDERED: SUGAMMADEX SODIUM 200 MG/2 ML VIAL IV ONE (16:09)
--- NOTE | 2024-02-04 16:19 | History & Physical Bridge Note ---
Date of Service February 04, 2024 History & Physical Bridge Note I have examined the patient, reviewed the History & Physical and in the interval since the performance of the History & Physical I have noted the following changes of clinical significance: Pt has had changes in her clinical status with the onset of fever and worsened HD instability. She will be taken to the operating room for exploratory laparoscopy, possible laparotomy, possible colon resection with colostomy formation and all other indicated procedures. The details of the procedure have been explained to her including the risks and benefits. Including major blood vessel injury causing , ureteral injury, worsened infection involving incisions, the development of abscess post operatively, the need for further procedures including surgeries and injury to other surrounding structures requiring corrective procedures. She expressed understanding of this explanation, consent was obtained, is signed and on the patient's chart.
--- NOTE | 2024-02-04 16:42 | Anesthesiology Consultation ---
Date of Service February 04, 2024 Assessment & Plan Chart Review Chart Review: Acceptable Risk for Surgery Consults Requested none History Surgery Operation Date: 02/04/24 08:10 Proposed Procedures p Diagnostic Laparoscopy Possible Exploratory Laparotomy Abdominal Wash Out, Possible Colon Resection, Creation Colostomy - Elizabeth Velasquez DO Height/Weight Height: 5 ft 4 in Weight: 88 kg Allergies Allergy/AdvReac Type Severity Reaction Status Date / Time No Known Allergies Allergy Unverified 02/03/24 15:44 Medications Home Medications Medication Instructions Recorded Confirmed Last Taken No Known Home Medications 02/03/24 02/03/24 Unknown Active Medications Generic Name Dose Route Start Last Admin Trade Name Freq PRN Reason Stop Dose Admin Heparin Sodium (Porcine) 5,000 units 02/03/24 21:00 02/04/24 09:25 Heparin Sod 5,000 Unit/0.5 Ml Vial SQ 03/04/24 20:59 5,000 units Q12 LORETTA Administration Piperacillin Sod/Tazobactam Sod 4.5 gm in 100 mls @ 25 mls/hr 02/03/24 23:00 02/04/24 15:41 Zosyn IV 02/13/24 22:59 25 mls/hr Q8H LORETTA Administration Protocol Lactated Ringer's 1,000 mls @ 125 mls/hr 02/03/24 19:15 02/04/24 13:12 Lr IV 02/04/24 19:14 125 mls/hr .Q8H LORETTA Administration Lorazepam 0.25 mg 02/03/24 22:57 02/04/24 09:13 Lorazepam 2 Mg/1 Ml Vial IV 02/05/24 22:56 0.25 mg DAILY PRN Administration Anxiety Morphine Sulfate 3 mg 02/03/24 22:58 02/04/24 03:46 Morphine Sulfate 4 Mg/Ml 1 Ml Carp\Vial IV 02/17/24 19:12 3 mg Q4H PRN Administration Pain Ondansetron HCl 4 mg 02/03/24 19:13 02/03/24 20:19 Ondansetron Inj 2 Mg/Ml 2 Ml Vial IV 03/04/24 19:12 4 mg Q6H PRN Administration Nausea And Vomiting NPO Date Last Intake of Fluids: 02/03/24 Time Last Intake of Fluids: 23:59 Date Last Intake of Solids: 02/02/24 Time Last Intake of Solids: 23:59 Social History Smoking Status: Unknown if ever smoked Hx Alcohol Use: No Hx Substance Use: No Physical Exam Vital Signs Last Vital Signs Temp 39.0 C H 02/04/24 16:28 Pulse 119 H 02/04/24 16:28 Resp 18 02/04/24 16:28 BP 110/72 02/04/24 16:28 Pulse Ox 93 02/04/24 16:28 O2 Del Method Room Air 02/04/24 16:28 Testing Laboratory Results 02/04/24 07:22 02/04/24 07:22 Urine Color Yellow 02/03/24 15:10 Urine Appearance Clear (Clear) 02/03/24 15:10 Urine pH 6.5 (4.5-7.5) 02/03/24 15:10 Ur Specific Hammond > 1.045 (1.000-1.030) H 02/03/24 15:10 Urine Protein Negative (Negative) 02/03/24 15:10 Urine Glucose (UA) Negative (Negative) 02/03/24 15:10 Urine Ketones Negative (Negative) 02/03/24 15:10 Urine Nitrite Negative (Negative) 02/03/24 15:10 Ur Leukocyte Esterase Negative (Negative) 02/03/24 15:10
[2024-02-04] MEDS ORDERED: ONDANSETRON INJ 2 MG/ML 2 ML VIAL IV PRN (17:00)
[2024-02-04] MEDS ORDERED: ePHEDrine sulfate 50 MG/ML AMP IV PRN ×2 (17:00→18:09)
[2024-02-04] MEDS ORDERED: ATROPINE SULFATE 0.1 MG/ML 10ML SYR IV PRN (17:00)
[2024-02-04] MEDS ORDERED: fentaNYL citrate PF 100 MCG/2 ML VIAL IV PRN (17:00)
[2024-02-04] MEDS ORDERED: HYDROmorphone INJ 2 MG/ML SYR/VIAL IV PRN (17:00)
[2024-02-04] MEDS ORDERED: PROMETHAZINE HCL 6.25 MG in SODIUM CHLORIDE 0.9% 50 ML IV PRN (17:00)
[2024-02-04] MEDS ORDERED: PHENYLEPHRINE 100MCG/ML 5ML SYR ONE (17:32)
[2024-02-04] MEDS: ACETAMINOPHEN 1,000 MG/100 ML VIAL IV PRN (17:54)
[2024-02-04] MEDS ORDERED: LIDOCAINE 2%/EPINEPHRINE 1:200,000 20 ML PF EPI STA (18:09)
[2024-02-04] MEDS ORDERED: fentaNYL citrate PF 100 MCG/2 ML VIAL EPI STA (18:09)
[2024-02-04] MEDS ORDERED: NALBUPHINE HCL INJ 10 MG/ML AMP IV PRN (18:09)
[2024-02-04] MEDS ORDERED: fentANYL 2 MCG/ML BUPIVacaine 0.125%-NSS 100ML BAG EPI PRN (18:09)
[2024-02-04] MEDS ORDERED: BUPIVACAINE 0.25% PF 30 ML VIAL EPI PRN (18:09)
[2024-02-04] MEDS ORDERED: NALOXONE HCL 0.4 MG/1 ML VIAL/CARP IV PRN (18:09)
[2024-02-04] MEDS ORDERED: ROPIVACAINE 0.5% PF 5 MG/ML 20 ML VIAL EPI PRN (18:09)
[2024-02-04] MEDS ORDERED: SODIUM CHLORIDE 0.9% PF INJ 10 ML VIAL EPI STA (18:09)
[2024-02-04] MEDS ORDERED: diphenhydrAMINE 50 MG/ML VIAL IV PRN (18:09)
[2024-02-04] MEDS ORDERED: fentaNYL citrate PF 100 MCG/2 ML VIAL EPI PRN (18:09)
[2024-02-04] MEDS ORDERED: SODIUM CHLORIDE 0.9% PF INJ 10 ML VIAL EPI PRN (18:09)
[2024-02-04] MEDS ORDERED: LIDOCAINE 2% MPF LOCAL 5 ML VIAL EPI PRN (18:09)
[2024-02-04] MEDS ORDERED: BUPIVACAINE 0.25% PF 30 ML VIAL EPI STA (18:09)
[2024-02-04] MEDS ORDERED: NALOXONE HCL 1 MG in SODIUM CHLORIDE 0.9% 1,000 ML IV PRN (18:09)
[2024-02-04] MEDS: BUPIVACAINE/EPINEPHRINE 0.5% MPF 1:200,000 30 ML VIAL ONE (20:52)
--- NOTE | 2024-02-04 21:31 | Operative Report ---
PG Post Operative Report Pre & Post Diagnosis Operation Date: 02/04/24 08:10 Pre-Op Diagnosis: Acute Diverticulitis Post-Op Diagnosis: Acute Diverticulitis I identified the patient and participated in the time-out.: Yes Procedure Operation Date: 02/04/24 08:10 Actual Procedures p Diagnostic Laparoscopy, with a laparoscopic colon resection, Abdominal Wash Out, Creation Colostomy(Not Applicable) - Elizabeth Velasquez DO Extensive lysis of adhesions Surgeon Elizabeth Velasquez DO Sewer And Drain Technician ALMA Moreira first half, ALMA Jean second half Estimated Blood Loss 50 Findings See Below Very thick, dense portion of the descending colon Specimens Distal portion of descending colon Drains 15 Cypriot Tj drain right lower quadrant Anesthesia Type General Complications None Indications Sepsis due to perforated diverticulitis. Patient developed fever and hemodynamic instability Description of Procedure The patient was brought back to the operating room and placed on the operating room table in supine position. She was connected to cardiac and oxygen monitoring, supplemental O2 was provided and SCDs were applied to bilateral lower extremities. The patient was administered general anesthesia and a secure airway was established. An OG tube was placed. A Ram catheter was also placed. The abdomen was prepped and draped in typical sterile fashion and a timeout was conducted. Local anesthetic was injected prior to making all incisions. After injecting local anesthetic into the skin and subcutaneous tissues, a very small stab incision was made just superior lateral in the supraumbilical fold. Intra-abdominal access was gained with a Veress needle. This was confirmed using saline drop test. CO2 insufflation was initiated and pneumoperitoneum was established to a goal pressure of 15 mmHg. Once this pressure was reached, a 5 mm trocar was inserted at the left upper quadrant using direct visualization with a 5 mm Optiview port via laparoscope. A second 5 mm port was inserted the right lower quadrant. A 5 mm port was inserted the left upper quadrant. The abdomen was inspected. A inflammatory mass was noted at the mid abdomen. Feculent material and exudative debris were noted along the lower abdomen into the pelvis and at the right and left paracolic gutters. The abdomen was suctioned of intra-abdominal purulent fluid. There was no feces identified. Intra-abdominal purulent fluid was collected and sent for culture. The abdomen was irrigated at the pelvis right and lower quadrants. The OR table was positioned in left side down and Trendelenburg. The inflammatory mass of the central abdomen was identified to be the colon that was densely entangled wi th the small bowel and small bowel mesentery. The area was targeted for further inspection to determine if there was compromise to the colon wall. Tedious dissection took place carefully and bluntly. These tissues were very fibrinous, inflamed and thickened. With dissection, 1 very deep purulent cratered and necrotic area was identified that was seeping purulent fluid as well as 2 additional smaller cratered areas seeping purulent fluid proximal to this. At this point it was determined that the colon definitely needed to be removed. The 5 mm right lower quadrant port was upgraded to a 12 mm port. This dense entangled ball was very hard. The colon was eventually freed from its adherence to surrounding tissues and transected proximally and distally using 60 mm purple loads of an Endo MICHAEL stapler. LigaSure was used to further dissected the mesentery to excise this severely diseased colon. The intra-abdominal space was irrigated and irrigant was suctioned away. The proximal colon was mobilized further to ensure adequate length would be available to reach to the abdominal wall. Once this was completed, a 15 Cypriot Tj drain was inserted the right lower quadrant extending down into the pelvis. An incision was made at the left upper quadrant and the fascia was opened to create a colostomy site. The diseased colon was removed from the abdomen via the anticipated colostomy site and sent to pathology for further analysis. The proximal aspect of the transected descending colon was brought up through this site and the colostomy was matured using 4-0 Vicryl sutures. The drain was sewn in at the right lower quadrant drain site. The remaining 2 laparoscopic incisions were closed with subcuticular 4-0 Monocryl and sealed with Dermabond. Abdomen was wiped clean with a saline soaked lap pad and dried. A colostomy appliance was applied to the colostomy site. The patient tolerated the procedure well. She was awakened from anesthesia, the secure airway and OG tube were both removed. The Ram remains in place. The patient is transferred to recovery in stable condition. I attest to the content of the Intraoperative Record and any orders documented therein. Any exceptions are noted below.
[2024-02-04 21:41] LABS: Hematocrit (blood only) 26.6 % (37.0-47.0); Hemoglobin 8.3 g/dl (12.0-16.0); Mean Corpuscular Hemoglobin 24.2 pg (25.0-34.0); Mean Corpuscular Hgb Conc 31.2 g/dL (32.0-36.0); Mean Corpuscular Volume 77.6 fL (80.0-100.0); Platelet Count 236 K/uL (130-400); RDW Coefficient of Variation 15.3 % (11.5-14.5); RDW Standard Deviation 43.7 fL (36.4-46.3); Red Blood Count 3.43 M/uL (4.20-5.40); White Blood Count 9.72 K/ul (4.8-10.8)
--- NOTE | 2024-02-04 21:41 | Anesthesiology Progress Note ---
Date of Service February 04, 2024 Anesthesia Post Procedure Vital Signs Vital Signs: Temp Pulse Pulse Pulse Resp BP BP 02/04/24 21:40 37.3 C 105 H 16 115/73 02/04/24 21:30 105 H 20 104/77 02/04/24 21:20 112 H 21 120/69 02/04/24 21:10 102 H 17 105/78 02/04/24 21:04 36.5 C 95 H 22 108/78 02/04/24 16:28 39.0 C H 119 H 18 110/72 02/04/24 15:21 39.4 C H 112 H 18 93/63 L 02/04/24 14:14 107 H 02/04/24 11:37 37.5 C 100 H 18 104/71 02/04/24 07:59 37.2 C 95 H 18 94/66 L 02/04/24 07:00 107 H 02/04/24 02:18 37.4 C 100 H 18 95/65 L 02/04/24 00:46 101 H 02/03/24 22:31 36.5 C 95 H 18 98/60 L Pulse Ox O2 Del Method O2 Flow Rate 02/04/24 21:40 95 Nasal Cannula 4 02/04/24 21:30 95 Nasal Cannula 4 02/04/24 21:20 92 Oxymask 4 02/04/24 21:10 94 Oxymask 6 02/04/24 21:04 94 Oxymask 10 02/04/24 16:28 93 Room Air 02/04/24 15:21 91 Room Air 02/04/24 14:14 02/04/24 11:37 93 Room Air 02/04/24 07:59 93 Room Air 02/04/24 07:00 02/04/24 02:18 89 L Room Air 02/04/24 00:46 02/03/24 22:31 96 Room Air Pain Intensity Abdomen: Pain Intensity: 8 Transfer of Care Handoff Completed per policy Notes Mental Status: alert / awake / arousable and participated in evaluation Patient Amnestic to Procedure: Yes Nausea / Vomiting: adequately controlled Pain: adequately controlled Airway Patency, RR, SpO2: stable & adequate BP & HR: stable & adequate Hydration State: stable & adequate Anesthetic Complications: no major complications apparent
[2024-02-04 21:56] LABS: BUN Creatinine Ratio 15.9 (10-20); Calcium 7.8 mg/dl (8.6-10.3); Potassium 4.1 mmol/L (3.5-5.1)
[2024-02-04 22:01] LABS: Basophils # (auto) 0.02 K/uL (0.00-0.20); Basophils % (auto) 0.2 %; Immature Granulocytes # (auto) 0.05 K/uL (0.01-0.20); Immature Granulocytes % (auto) 0.5 %; Lymphocytes # (auto) 0.34 K/uL (1.20-3.40); Lymphocytes % (auto) 3.5 %; Monocytes # (auto) 0.44 K/uL (0.11-0.59); Monocytes % (auto) 4.5 %; Neutrophils # (auto) 8.87 K/uL (1.40-6.50); Neutrophils % (auto) 91.3 %; Ovalocytes 1+; Polychromasia 1+
[2024-02-04] MEDS: SODIUM CHLORIDE 0.9% 1,000 ML IV SCH (22:41)
--- NOTE | 2024-02-05 03:42 | Communication Note ---
Date of Service: February 05, 2024 Patient visited in PACU shortly after surgery and she was noted to be hemodynamically stable. Labs have been checked in recovery room after surgery where her white blood cell count is noted to be normal. Her hemoglobin and hematocrit are 8.3 and 26.6. (These values of hemoglobin and hematocrit do not represent a significant drop from what was noted on her preoperative values.). Her platelet count is within normal range. Chemistry profile did show sodium was 135 with a normal potassium. Her BUN and creatinine were both within normal range. Patient revisited again at bedside at approximately 3:30 AM. She is noted to be hemodynamically stable. Her blood pressure was 104/72 and heart rate is 92. She is afebrile. On physical exam the patient's ostomy was examined. There is some bloody drainage noted in the ostomy bag. There is therefore difficult to tell if her ostomy is pink and viable or if it is just discolored from the blood. Will continue to monitor this closely. I discussed with the nurse and the patient's CHRIS drain has been emptied 1 time since surgery for approximately 35 cc. The contents of the drain appear to be of serosanguineous fluid. In addition, the patient has been making an excess of 100 cc of urine per hour.
[2024-02-05] MEDS: FAMOTIDINE 20MG IV PUSH 20 MG/5 ML SYR IV STA (05:19)
[2024-02-05] MEDS: LORazepam 2 MG/1 ML VIAL IV PRN (06:35)
[2024-02-05 07:20] LABS: Hematocrit (blood only) 24.3 % (37.0-47.0); Hemoglobin 7.5 g/dl (12.0-16.0); Mean Corpuscular Hgb Conc 30.9 g/dL (32.0-36.0); Mean Corpuscular Volume 77.6 fL (80.0-100.0); Mean Platelet Volume 9.6 fL (9.4-12.4); Platelet Count 242 K/uL (130-400); RDW Coefficient of Variation 15.3 % (11.5-14.5); RDW Standard Deviation 43.3 fL (36.4-46.3); Red Blood Count 3.13 M/uL (4.20-5.40); White Blood Count 10.05 K/ul (4.8-10.8)
[2024-02-05 07:44] LABS: Albumin Globulin Ratio 1.1 (0.9-2); BUN Creatinine Ratio 17.5 (10-20); Bilirubin,Total 0.7 mg/dl (0.2-1.0); Calcium 7.9 mg/dl (8.6-10.3); Creatinine Clr Calc Pharmacy 124.9 ml/min; Globulin 2.8 gm/dl (2.5-4.0); Magnesium 1.7 mg/dl (1.7-2.4); Phosphorus 2.8 mg/dl (2.5-4.9); Potassium 3.7 mmol/L (3.5-5.1); Total Protein 5.8 gm/dl (6.0-8.3)
[2024-02-05] MEDS ORDERED: MoRPHine SULFATE 4 MG/ML 1 ML CARP\\VIAL IV PRN (10:28)
--- NOTE | 2024-02-05 11:10 | Surgery Progress Note ---
<Statement entered by Elizabeth Velasquez, DO - 02/05/24 12:30> I have seen and examined this patient this morning. I agree with this plan. Date of Service February 05, 2024 Assessment & Plan (1) History of colon resection: Plan: POD [address] Velasquez stoma has some darkening with blood, was irrigated with sterile NSS at bedside will monitor BP soft , H/h 7.5/ 24.3 ordered repeat for 1200 , and fluid bolus after lab draw remove maloney today OOB as able seen with Dr. Whyte Admission and Anticipated Discharge Date Admission Date: February 03, 2024 Subjective pt resting in bed Review of Systems Gastrointestinal: + abdominal pain; no nausea and no vomit ing Physical Exam Constitutional: cooperative; no acute distress Respiratory: normal respiratory effort; no respiratory distress Cardiovascular: Rate/Rhythm: regular rate Gastrointestinal (Abdomen): Inspection/Auscultation: + abdominal surgical incision (dermabond and new colostomy ); abdomen not distended Percussion/Palpation: abdomen soft Results & Data Vital Signs (Past 12 Hours) Vital Signs Temp Pulse Pulse Resp BP Pulse Ox O2 Del Method 02/05/24 09:48 88 02/05/24 07:28 98.1 F 88 18 91/62 L 93 Room Air 02/05/24 02:19 98.8 F 92 H 18 104/72 94 Nasal Cannula 02/05/24 01:40 96/67 L 02/05/24 00:08 100 H 02/05/24 00:03 99 H 101/68 02/04/24 23:33 93 H 101/68 02/04/24 23:18 97 H 105/70 O2 Flow Rate 02/05/24 09:48 02/05/24 07:28 02/05/24 02:19 2 02/05/24 01:40 02/05/24 00:08 02/05/24 00:03 02/04/24 23:33 02/04/24 23:18 Results CBC w Diff Results: RBC 3.13 M/uL (4.20-5.40) L 02/05/24 WBC 10.05 K/ul (4.8-10.8) 02/05/24 Hgb 7.5 g/dl (12.0-16.0) L 02/05/24 Hct 24.3 % (37.0-47.0) L 02/05/24 MCV 77.6 fL (80.0-100.0) L 02/05/24 MCH 24.0 pg (25.0-34.0) L 02/05/24 MCHC 30.9 g/dL (32.0-36.0) L 02/05/24 RDW Standard Deviation 43.3 fL (36.4-46.3) 02/05/24 RDW Coefficient of Variation 15.3 % (11.5-14.5) H 02/05/24 Plt Count 242 K/uL (130-400) 02/05/24 MPV 9.6 fL (9.4-12.4) 02/05/24 Neutrophils (%) (Auto) 91.3 % 02/04/24 Lymphocytes (%) (Auto) 3.5 % 02/04/24 Monocytes # (Auto) 0.44 K/uL (0.11-0.59) 02/04/24 Eosinophils # (Auto) 0.00 K/uL (0.00-0.50) 02/04/24 Immature Granulocyte % (Auto) 0.5 % 02/04/24 Neutrophils # (Auto) 8.87 K/uL (1.40-6.50) H 02/04/24 Lymphocytes # (Auto) 0.34 K/uL (1.20-3.40) L 02/04/24 Monocytes # (Auto) 0.44 K/uL (0.11-0.59) 02/04/24 Eosinophils # (Auto) 0.00 K/uL (0.00-0.50) 02/04/24 Basophils # (Auto) 0.02 K/uL (0.00-0.20) 02/04/24 Immature Granulocyte # (Auto) 0.05 K/uL (0.01-0.20) 4 Polychromasia 1+ 02/04/24 Ovalocytes 1+ 02/04/24 PG Care Time/CCT Total # of Minutes Spent Total Time Spent with Patient: Total time spent is greater than 50% in coordination of care (as documented) at patient's floor/unit and/or counseling patient: Coding Level of Care Code 86879 Post Operative Follow-Up Diagnoses History of colon resection Z90.49
[2024-02-05] MEDS: ACETAMINOPHEN 1,000 MG/100 ML VIAL IV SCH (12:19)
[2024-02-05 13:25] LABS: Hematocrit (blood only) 22.5 % (37.0-47.0)
[2024-02-05] MEDS ORDERED: hydrOXYzine HCl 25 MG TAB PO PRN (13:39)
[2024-02-05] MEDS: SODIUM CHLORIDE 0.9% 1,000 ML IV ONE (13:40)
--- NOTE | 2024-02-05 15:30 | Hospitalist Progress Note ---
Date of Service February 05, 2024 Assessment & Plan (1) Acute diverticulitis: Plan: Per admitting provider w/ addendum Complex radiological finding of diverticulitis/mesenteric abscess/possible mass Abdominal pain for the last 2 weeks with progressive worsening of pain associated with nausea and diarrhea Was evaluated in [facility] with a CT scan of the abdomen pelvis Pain got worse and came to the emergency room at [facility] CT report was found to have diverticulitis with phlegmonous change Started on intravenous Zosyn and surgery was consulted, Intitally recommended the following: -n.p.o. and will give IV fluid and pain medications and nausea medications -Chest/abdomen x-ray did not show any free fluid-perforation has been ruled out CT scan of the abdomen pelvis with IV and oral contrast on that was done at [facility] and she was supposed to be seen by Dr. 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 Please note that there is an overlap in the imaging appearance colitis/diverticulitis and malignancy and colonoscopy should be considered to exclude underlying neoplasm. Inflammatory changes of sigmoid colon extending to uterine fundus and a adjacent small bowel. This may predispose to development of fistula. Epic chart is showing that she was prescribed ciprofloxacin and Flagyl but she has not been taking any antibiotic as of today Colonoscopy has been scheduled with Dr. Pandya on 02/10/2024 02/04/2024 Overnight developed increased abd. apin and CT abd was obtained: Marked inflammatory process in the pelvis. This is likely due to acute diverticulitis of the sigmoid colon. There are extraluminal air collections adjacent to the sigmoid colon consistent with perforation. Free fluid in the abdomen and pelvis. A fluid collection in the lower right paracolic gutter showed some peripheral enhancement of the peritoneum and could be organizing into an early abscess. Per previous provider: Contacted general surgery immediately and pt was again evaluated by the surgical team. Recommend IR. Contacted transfer center and discussed possible IR intervention w/ [facility] [place] Sarah - triage officer and radiologist - IR recommended surgery -> updated surgical team again. Pt continued to be on IV zosyn and closely monitored. Developed fever in late afternoon - and was taken to OR by the surg. team. Pain control prn Anemia, acute on chronic Acute blood loss Anemia H/H slowly downtrending on recheck AM anemia panel Transfuse prn for hgb<7 Continue to monitor Diarrhea stool for C. difficile and culture Likely secondary to diverticulitis Diet: currently npo DVT prophylaxis: SCDs in setting of worsening anemia Dispo: home once medically stable, consider pt/ot (2) Gastric bypass status for obesity: Admission and Anticipated Discharge Date Admission Date: February 03, 2024 Subjective Pt was seen resting in bed. Comfortable at the time of exam. Asking about medications to help with anxiety in particular ativan or xanax. States she gets anxiety in hospitals. Also asking for an incentive spirometer. Review of Systems Review of Systems: All systems reviewed & are unremarkable except as noted in Subjective Physical Exam Physical Exam: General: Alert, oriented. Psych: Appropriate mood and affect at the time of exam Neuro: difficulty with movementts in the bed HEENT: NC/AT CV: RRR Resp: no increased effort of breathing Abdomen: Soft, ostomy visible with bag Extremities: No edema in lower extremities bilaterally. Results & Data Results & Data Vital Signs (Past 12 Hours) Vital Signs Temp Pulse Pulse Resp BP Pulse Ox O2 Del Method 02/05/24 14:08 85 02/05/24 11:35 89 20 108/72 02/05/24 11:27 36.8 C 88 26 H 82/51 L 92 Room Air 02/05/24 09:48 88 02/05/24 07:28 36.7 C 88 18 91/62 L 93 Room Air Diagnostic Findings Chest/Abdomen X-ray 02/03/24 15:31 XR abdomen 2V w PA chest CLINICAL HISTORY: upright, diffuse ab pain TECHNIQUE: 2 views of the abdomen were obtained. A single view of the chest was obtained. Comparison: None available at the time of this dictation. FINDINGS: No lines and tubes are seen. The cardiomediastinal silhouette is normal. The lungs are clear. No evidence of pleural effusion or pneumothorax. The osseous structures are grossly unremarkable. The bowel gas pattern is nonobstructive. A moderate amount of stool is noted within the large bowel. IMPRESSION: Nonobstructive bowel gas pattern. ACT 112: Negative or not required by law. Electronically signed by: Homero Foster M.D. 02/03/2024 4:27 PM Abdomen/Pelvis CT 02/04/24 05:47 CR Exam(s): CT ABDOMEN + PELVIS With Contrast IV Amt: 93 ml optiray 320 EXAM: CT Abdomen and Pelvis With Intravenous Contrast CLINICAL HISTORY: Reason for exam: severe right sided abdominal pain. TECHNIQUE: Axial computed tomography images of the abdomen and pelvis with intravenous contrast. CTDI is 25.89 mGy and DLP is 1366.68 mGy-cm. Automated exposure control was utilized for the study. A dose lowering technique was utilized adhering to the principles of ALARA. CONTRAST: Patient received 93 ml optiray 320 of IV contrast COMPARISON: No relevant prior studies available. FINDINGS: Lung bases: Mild areas of atelectasis in the posterior inferior aspects of the lower lobes. ABDOMEN: Liver: Unremarkable. No mass. Gallbladder and bile ducts: Gallstones. No ductal dilation. Pancreas: Unremarkable. No mass. No ductal dilation. Spleen: Unremarkable. No splenomegaly. Adrenals: Unremarkable. No mass. Kidneys and ureters: Unremarkable. No solid mass. No hydronephrosis. Stomach and bowel: There is marked inflammatory process in the pelvis. This is centered around the sigmoid colon where there is abnormal wall thickening. There are some diverticula in the region. This is most suspicious for acute diverticulitis.. There are a few abnormal extraluminal air collections anterior to the thickened sigmoid colon consistent with perforation. No obstruction. PELVIS: Appendix: No findings to suggest acute appendicitis. Bladder: Unremarkable. No mass. Reproductive: 4 cm left ovarian cyst. ABDOMEN and PELVIS: Intraperitoneal space: A small amount of free fluid is seen around the liver and in the right paracolic gutter as well as the lower pelvis. The fluid in the lower right paracolic gutter showed some enhancement of the surrounding peritoneum and could be organizing into an early abscess. Bones/joints: No acute findings. Soft tissues: Umbilical hernia containing fat. Vasculature: Unremarkable. No abdominal aortic aneurysm. Lymph nodes: Unremarkable. No enlarged lymph nodes. IMPRESSION: Marked inflammatory process in the pelvis. This is likely due to acute diverticulitis of the sigmoid colon. There are extraluminal air collections adjacent to the sigmoid colon consistent with perforation. Free fluid in the abdomen and pelvis. A fluid collection in the lower right paracolic gutter showed some peripheral enhancement of the peritoneum and could be organizing into an early abscess. Communications: Call Doctor Pneumoperitoneum, new or unexpected Electronically signed by: Les Serra MD 02/04/24 07:11 AM
[2024-02-05] MEDS: MoRPHine SULFATE 2 MG/ML CARP IV PRN (17:49)
[2024-02-05 21:42] LABS: Hematocrit (blood only) 21.2 % (37.0-47.0); Hemoglobin 6.7 g/dl (12.0-16.0)
[2024-02-05] MEDS ORDERED: SODIUM CHLORIDE 0.9% 50 ML IV PRN (21:43)
[2024-02-05] MEDS ORDERED: SODIUM CHLORIDE 0.9% 100 ML IV PRN (21:43)
[2024-02-06] MEDS: LORazepam 2 MG/1 ML VIAL IV PRN ×2 (01:10→23:17)
[2024-02-06 07:05] LABS: Basophils # (auto) 0.01 K/uL (0.00-0.20); Basophils % (auto) 0.1 %; Eosinophils # (auto) 0.07 K/uL (0.00-0.50); Eosinophils % (auto) 0.8 %; Hematocrit (blood only) 24.8 % (37.0-47.0); Hemoglobin 7.8 g/dl (12.0-16.0); Immature Granulocytes # (auto) 0.05 K/uL (0.01-0.20); Immature Granulocytes % (auto) 0.6 %; Lymphocytes # (auto) 0.93 K/uL (1.20-3.40); Mean Corpuscular Hemoglobin 24.8 pg (25.0-34.0); Mean Corpuscular Hgb Conc 31.5 g/dL (32.0-36.0); Mean Platelet Volume 9.6 fL (9.4-12.4); Monocytes # (auto) 0.55 K/uL (0.11-0.59); Monocytes % (auto) 6.5 %; Neutrophils # (auto) 6.82 K/uL (1.40-6.50); Platelet Count 237 K/uL (130-400); RDW Coefficient of Variation 15.6 % (11.5-14.5); RDW Standard Deviation 44.8 fL (36.4-46.3); Red Blood Count 3.14 M/uL (4.20-5.40); White Blood Count 8.43 K/ul (4.8-10.8)
[2024-02-06 07:27] LABS: Albumin Globulin Ratio 1.1 (0.9-2); Albumin Level 2.8 gm/dl (3.4-5.0); BUN Creatinine Ratio 21.1 (10-20); Bilirubin,Total 0.8 mg/dl (0.2-1.0); Calcium 7.6 mg/dl (8.6-10.3); Creatinine Clr Calc Pharmacy 138.1 ml/min; Globulin 2.6 gm/dl (2.5-4.0); Magnesium 1.9 mg/dl (1.7-2.4); Phosphorus 2.1 mg/dl (2.5-4.9); Potassium 3.3 mmol/L (3.5-5.1); Total Protein 5.4 gm/dl (6.0-8.3)
[2024-02-06 07:41] LABS: Polychromasia 1+
[2024-02-06 08:14] LABS: Adenovirus F 40/41 PCR Not Detected (NotDetected); Astrovirus PCR Not Detected (NotDetected); Campylobacter PCR Not Detected (NotDetected); Cryptosporidium PCR Not Detected (NotDetected); Cyclospora cayetanensis PCR Not Detected (NotDetected); Entamoeba histolytica PCR Not Detected (NotDetected); Enteroaggregative E.coli(EAEC) Not Detected (NotDetected); Enteropathogenic E.coli (EPEC) Not Detected (NotDetected); Enterotoxigenic E.coli (ETEC) Not Detected (NotDetected); Giardia lamblia PCR Not Detected (NotDetected); Norovirus GI/GII PCR Not Detected (NotDetected); Plesiomonas shigelloides PCR Not Detected (NotDetected); Rotavirus A PCR Not Detected (NotDetected); Salmonella PCR Not Detected (NotDetected); Sapovirus PCR Not Detected (NotDetected); Shiga-like Toxin E.coli (STEC) Not Detected (NotDetected); Shigella/Enteroinvasive E.coli Not Detected (NotDetected); Vibrio cholerae PCR Not Detected (NotDetected); Vibrio species PCR Not Detected (NotDetected); Yersinia enterocolitica PCR Not Detected (NotDetected)
[2024-02-06 08:42] LABS: Cdiff Antigen Positive; Cdiff Toxin A+B Negative Cdiff Toxin (Negative); Cdiff Toxin B Gene (2yr or >) Positive Cdiff Gene (Neg)
--- NOTE | 2024-02-06 08:44 | Surgery Progress Note ---
Date of Service February 06, 2024 Assessment & Plan (1) Acute diverticulitis: Plan: Pt is POD 2 s/p laparoscopic extensive CALISTA, control of purulent sepsis by washout, partial colectomy with end colostomy creation. S/P 1 U PRBCs for anemia, HD stable. H/H this am to 7.8/24.8 from 6.7/21.2 yesterday evening. Blood counts had been trending down preoperatively. No evidence for active bleeding, stable and CHRIS drain is serosanguinous, mostly serous. No evidence for purulent fluid here. Will confirm there are no loculated areas not accessible to drainage. Plan for OR today for 2nd look laparoscopy and stoma revision. Details of this have been explained to the patient including risks and benefits. Consent has been obtained. (2) Anemia: Admission and Anticipated Discharge Date Admission Date: February 03, 2024 Subjective Patient seen and examined this am. States she feels better and is s/p 1 U PRBC. She denies fevers/chills/N/V. C/o pain/soreness along the drain area. Physical Exam Constitutional: + obese; no acute distress, not ill appe aring and not in distress Respiratory: normal respiratory effort; no respiratory distress, no labored breathing and does not use accessory muscles Gastrointestinal (Abdomen): Drain at RLQ appears with serosanguinous fluid, some drainage around the drain site. The stoma appears non-viable, has begun to have function with flatus and thin liquid stool. Laparoscopic incisions healing well. Results & Data Vital Signs (Past 12 Hours) Vital Signs Temp Pulse Pulse Resp BP BP Pulse Ox 02/06/24 07:35 37.4 C 90 16 111/75 91 02/06/24 07:01 90 02/06/24 04:00 37.2 C 90 18 107/71 91 02/06/24 01:29 37.5 C 85 18 114/72 97 02/06/24 00:14 37.4 C 83 18 110/75 97 02/05/24 23:14 37.4 C 86 18 116/80 95 02/05/24 23:03 87 02/05/24 22:44 37.3 C 85 18 113/78 96 02/05/24 22:29 37.3 C 84 18 116/79 96 02/05/24 22:13 37.5 C 89 18 111/76 94 O2 Del Method O2 Flow Rate 02/06/24 07:35 Room Air 02/06/24 07:01 02/06/24 04:00 Room Air 02/06/24 01:29 2 02/06/24 00:14 2 02/05/24 23:14 2 02/05/24 23:03 02/05/24 22:44 2 02/05/24 22:29 2 02/05/24 22:13 2 PG Care Time/CCT Total # of Minutes Spent Total Time Spent with Patient: Total time spent is greater than 50% in coordination of care (as documented) at patient's floor/unit and/or counseling patient: Coding Level of Care Code 13898 Post Operative Follow-Up Diagnoses Acute diverticulitis K57.92 Anemia D64.9 Anemia type: unspecified type (2) Anemia Anemia type: unspecified type Qualified Code(s): D64.9 - Anemia, unspecified
[2024-02-06] MEDS ORDERED: POTASSIUM PHOS 3 MMOL/1 ML INFUSION IV STA (08:48)
[2024-02-06] MEDS: LACTATED RINGER'S 1,000 ML IV SCH (09:16)
--- NOTE | 2024-02-06 09:17 | Anesthesiology Consultation ---
Date of Service February 06, 2024 Assessment & Plan Chart Review Chart Review: Acceptable Risk for Surgery Consults Requested none History Surgery Operation Date: 02/04/24 08:10 Proposed Procedures p Diagnostic Laparoscopy Possible Exploratory Laparotomy Abdominal Wash Out, Possible Colon Resection, Creation Colostomy - Elizabeth Velasquez DO Operation Date: 02/06/24 07:00 Proposed Procedures p Exploratory Laparoscopy Revision of Colostomy and Stoma - Elizabeth Higgins DO Height/Weight Height: 5 ft 4 in Weight: 88 kg Allergies Allergy/AdvReac Type Severity Reaction Status Date / Time No Known Allergies Allergy Verified 02/06/24 09:13 Medications Home Medications Medication Instructions Recorded Confirmed Last Taken No Known Home Medications 02/03/24 02/03/24 Unknown Active Medications Generic Name Dose Route Start Last Admin Trade Name Freq PRN Reason Stop Dose Admin Piperacillin Sod/Tazobactam Sod 4.5 gm in 100 mls @ 25 mls/hr 02/03/24 23:00 02/06/24 07:42 Zosyn IV 02/13/24 22:59 25 mls/hr Q8H [place]OR[facility] Administration Protocol Acetaminophen 1,000 mg in 100 mls @ 400 mls/hr 02/05/24 10:30 02/06/24 03:46 Ofirmev IV 02/08/24 10:29 Infused Q8H [place] Infusion Lactated Ringer's 1,000 mls @ 15 mls/hr 02/06/24 09:15 02/06/24 09:16 Lr IV 02/07/24 09:14 0 mls/hr .Q24H [place] Infusion Lorazepam 0.5 mg 02/06/24 01:01 02/06/24 01:10 Lorazepam 2 Mg/1 Ml Vial IV 03/07/24 01:00 0.5 mg Q4H PRN Administration Anxiety/Agitation Morphine Sulfate 2 mg 02/05/24 10:28 02/06/24 05:48 Morphine Sulfate 2 Mg/Ml Carp IV 02/19/24 10:27 2 mg Q3H PRN Administration Moderate Pain (Scale 4, 5, 6) Ondansetron HCl 4 mg 02/03/24 19:13 02/03/24 20:19 Ondansetron Inj 2 Mg/Ml 2 Ml Vial IV 03/04/24 19:12 4 mg Q6H PRN Administration Nausea And Vomiting NPO Date Last Intake of Fluids: 02/06/24 Time Last Intake of Fluids: 05:00 Last Intake of Fluids Comment: sip of water Date Last Intake of Solids: 02/02/24 Time Last Intake of Solids: 23:59 Past Medical History Medical History (Updated 02/06/24 @ 09:15 by Tawny Guillen, RN) Depression with anxiety Past Surgical History Surgical History (Updated 02/06/24 @ 09:14 by Tawny Guillen, RN) History of H/O gastric sleeve History of colon resection (02/04/24) p Diagnostic Laparoscopy, with a laparoscopic colon resection, Abdominal Wash Out, Creation Colostomy(Not Applicable) - Elizabeth Velasquez, DO Extensive lysis of adhesions Social History Smoking Status: Unknown if ever smoked Hx Alcohol Use: No Hx Substance Use: No Physical Exam Vital Signs Last Vital Signs Temp 36.9 C 02/06/24 08:48 Pulse 85 02/06/24 08:48 Resp 20 02/06/24 08:48 BP 111/78 02/06/24 08:48 Pulse Ox 90 02/06/24 08:48 O2 Del Method Room Air 02/06/24 08:48 O2 Flow Rate 2 02/06/24 01:29 Testing Laboratory Results 02/06/24 06:19 02/06/24 06:19 Urine Color Yellow 02/03/24 15:10 Urine Appearance Clear (Clear) 02/03/24 15:10 Urine pH 6.5 (4.5-7.5) 02/03/24 15:10 Ur Specific [place] > 1.045 (1.000-1.030) H 02/03/24 15:10 Urine Protein Negative (Negative) 02/03/24 15:10 Urine Glucose (UA) Negative (Negative) 02/03/24 15:10 Urine Ketones Negative (Negative) 02/03/24 15:10 Urine Nitrite Negative (Negative) 02/03/24 15:10 Ur Leukocyte Esterase Negative (Negative) 02/03/24 15:10 Blood Type A Positive 02/04/24 16:19 Antibody Screen NEGATIVE 02/04/24 16:19 02/04/24 17:50 Gram Stain - Final Abdomen Aerobic and Anaerobic Culture - Preliminary Escherichia coli ESBL
[2024-02-06] MEDS ORDERED: PROMETHAZINE HCL 6.25 MG in SODIUM CHLORIDE 0.9% 50 ML IV PRN (09:18)
[2024-02-06] MEDS ORDERED: ATROPINE SULFATE 0.1 MG/ML 10ML SYR IV PRN (09:18)
[2024-02-06] MEDS ORDERED: ePHEDrine sulfate 50 MG/ML AMP IV PRN (09:18)
[2024-02-06] MEDS ORDERED: ONDANSETRON INJ 2 MG/ML 2 ML VIAL IV PRN (09:18)
[2024-02-06] MEDS ORDERED: HYDROmorphone INJ 2 MG/ML SYR/VIAL IV PRN (09:18)
[2024-02-06] MEDS ORDERED: ALBUMIN HUMAN 5% 12.5 GM/250 ML VIAL IV ONE (09:35)
[2024-02-06] MEDS ORDERED: SODIUM BICARB 8.4% INJ 50 MEQ/50 ML SYR IV ONE (09:35)
[2024-02-06] MEDS ORDERED: MIDAZOLAM HCL 1 MG/ML 2ML VIAL ONE (09:44)
[2024-02-06] MEDS ORDERED: DEXAMETHASONE SOD INJ 4 MG/ML VIAL ONE (09:44)
[2024-02-06] MEDS ORDERED: ONDANSETRON INJ 2 MG/ML 2 ML VIAL ONE (09:44)
[2024-02-06] MEDS ORDERED: fentaNYL citrate PF 100 MCG/2 ML VIAL ONE ×2 (09:44→10:37)
[2024-02-06] MEDS ORDERED: ROCURONIUM BROMIDE 10 MG/ML 5 ML VIAL IV ONE (09:44)
[2024-02-06] MEDS ORDERED: PHENYLEPHRINE HCL 10 MG/ML VIAL ONE (09:44)
[2024-02-06 09:53] LABS: Pregnancy Test, Serum Negative (Negative)
[2024-02-06] MEDS ORDERED: SUGAMMADEX SODIUM 200 MG/2 ML VIAL IV ONE (11:16)
[2024-02-06] MEDS: BUPIVACAINE/EPINEPHRINE 0.5% MPF 1:200,000 30 ML VIAL ONE (11:30)
--- NOTE | 2024-02-06 11:46 | Operative Report ---
PG Post Operative Report Pre & Post Diagnosis Operation Date: 02/06/24 07:00 Pre-Op Diagnosis: Acute Diverticulitis Post-Op Diagnosis: Acute Diverticulitis I identified the patient and participated in the time-out.: Yes Procedure Operation Date: 02/06/24 07:00 Actual Procedures p Exploratory Laparoscopy Revision of Colostomy and Stoma(Not Applicable) - Elizabeth Velasquez DO Surgeon Elizabeth Velasquez DO [employer] ALMA Moreira first half, ALMA Jean second half Estimated Blood Loss 5 Findings See Below Specimens proximal descending colon at colostomy site. Anesthesia Type General Complications None Indications Pt had been doing well, however, stoma appeared compromised viability garcia. A second look procedure was planned prior to weekend and plan for re-vision. Description of Procedure The patient was brought back to the operating room and placed on the operating room table in supine position. She was connected to cardiac and oxygen monitoring, supplemental O2 was provided and SCDs were applied to bilateral lower extremities. A Ram catheter was inserted. The patient was administered general anesthesia and a secure airway was established. The colostomy appliance was removed, the abdomen was prepped with Betadine prepped and draped in typical sterile fashion and a timeout was conducted. The stoma was released away from the skin edges at the colostomy site and within 1 cm below the stomal edge, healthier and very viable pink bile was encountered. The muscle examined and feel terribly tight. The bowel above the muscle wall was normal pink and viable as stated so this was not the cause of the compromise at the tip of the colostomy. Nonetheless, to be overly cautious, the muscle opening was slightly extended until the finger is very easily was traversed the muscle with the colon. A 5 mm port was inserted, CO2 insufflation was initiated and the laparoscope was inserted. There was no evidence for significant fluid within the abdomen. Minimal serous/brownish tinged fluid was identified in the pelvis. The drain was still in place. There was fibrinous exudate remaining along the right paracolic gutter. No new purulent fluid or collections identified. A previous laparoscopic incision was opened to suction away the small amount of fluid identified in the left pelvis and scraping suction away the some of the purulent exudate that was amenable to suction. CO2 insufflation was discontinued, the gas was evacuated from the abdomen and trocars were removed and the colostomy was matured with 4-0 Vicryl suture. The abdomen was wiped clean with a saline soaked lap pad and dried. The laparoscopic incision was sealed with Dermabond. An ostomy appliance was applied to the stoma site. At the end of the case, the Ram catheter was removed, anesthesia was discontinued and the patient was extubated. She tolerated the procedure well. Of note, the stoma continued to be very pink appearing and viable after extubation and upon transfer to recovery. I attest to the content of the Intraoperative Record and any orders documented therein. Any exceptions are noted below.
[2024-02-06] MEDS: fentaNYL citrate PF 100 MCG/2 ML VIAL IV PRN (11:55)
[2024-02-06 12:09] LABS: Folate (Folic Acid),Ser orPlas 6.75 ng/ml (>5.38)
--- NOTE | 2024-02-06 12:25 | Anesthesiology Progress Note ---
Date of Service February 06, 2024 Anesthesia Post Procedure Vital Signs Vital Signs: Temp Pulse Pulse Resp BP BP BP 02/06/24 12:20 78 12 119/89 02/06/24 12:10 78 12 117/86 02/06/24 12:00 85 15 107/85 02/06/24 11:50 92 H 17 124/67 02/06/24 11:42 36.5 C 89 19 106/79 02/06/24 08:48 36.9 C 85 20 111/78 02/06/24 07:35 37.4 C 90 16 111/75 02/06/24 07:01 90 02/06/24 04:00 37.2 C 90 18 107/71 02/06/24 01:29 37.5 C 85 18 114/72 02/06/24 00:14 37.4 C 83 18 110/75 02/05/24 23:14 37.4 C 86 18 116/80 02/05/24 23:03 87 02/05/24 22:44 37.3 C 85 18 113/78 02/05/24 22:29 37.3 C 84 18 116/79 02/05/24 22:13 37.5 C 89 18 111/76 02/05/24 19:30 36.7 C 92 H 18 104/69 02/05/24 19:13 02/05/24 17:45 108/70 02/05/24 16:30 36.3 C L 84 18 94/64 L 02/05/24 14:08 85 Pulse Ox O2 Del Method O2 Flow Rate 02/06/24 12:20 92 Nasal Cannula 4 02/06/24 12:10 93 Oxymask 5 02/06/24 12:00 94 Oxymask 10 02/06/24 11:50 94 Oxymask 10 02/06/24 11:42 92 Oxymask 10 02/06/24 08:48 90 Room Air 02/06/24 07:35 91 Room Air 02/06/24 07:01 02/06/24 04:00 91 Room Air 02/06/24 01:29 97 2 02/06/24 00:14 97 2 02/05/24 23:14 95 2 02/05/24 23:03 02/05/24 22:44 96 2 02/05/24 22:29 96 2 02/05/24 22:13 94 2 02/05/24 19:30 90 Room Air 02/05/24 19:13 Room Air 02/05/24 17:45 02/05/24 16:30 92 Room Air 02/05/24 14:08 Pain Intensity Abdomen: Pain Intensity: 3 Transfer of Care Handoff Completed per policy Notes Mental Status: alert / awake / arousable Patient Amnestic to Procedure: Yes Nausea / Vomiting: adequately controlled Pain: adequately controlled Airway Patency, RR, SpO2: stable & adequate BP & HR: stable & adequate Hydration State: stable & adequate Anesthetic Complications: no major complications apparent
[2024-02-06] MEDS: POTASSIUM CHLORIDE / WTR 10 MEQ/100 ML PLCT IV SCH (13:20)
--- NOTE | 2024-02-06 14:34 | Hospitalist Progress Note ---
Date of Service February 06, 2024 Assessment & Plan (1) Acute diverticulitis: Plan: Pt is a 43yoF with PMhx significant for Hx of bypass surgery and chronic diverticulitis presenting with worsening abdominal pain and was found to have diverticulitis with perforation. Later became septic requiring a laparoscopic colon resection, abdominal wash out and creation of a colostomy on 02/03 with exploratory lap revision of colostomy and stoma on 02/05. Sepsis Diverticulitis, Acute on chronic Bowel Perforation Pt presenting with known diverticulitis for which treatment had been prescribed but not initiated CT abd/pelvis in the ED noting diverticulitis with concern for perforation General surgery was consulted -s/p laparoscopic colon resection, abdominal wash out and creation of a colostomy on 02/03 -Pt requiring revision on 02/05, after noted anemia requiring transfusion -abdominal Cx 02/03 growing ESBL E.coli -pending pathology intraop samples IV Zosyn switched to IV Ertapenem on 02/05 ID consulted for further recs, appreciated Pain Control, antiemetics as needed Continue to monitor Acute on Chronic Anemia Acute Blood Loss anemia H/H slowly downtrending Hgb baseline 8-9 range Hgb 6.7 on 02/04 requiring transfusion of 1pRBC Transfuse prn for hgb<7 Continue to monitor Panic Attacks Anxiety Pt notes a Hx of panic attacks States she typically gets them in the hospital On 02/05, pt with HR in 130s, BP elevated, requiring 4L of oxygen and uncontrollable shaking after being advised of preliminary read of pathology as possible malignancy Worked up further with EKG, chest XR, VBG, CBC, BMP IV Ativan 1mg given with noted improvement in symptoms Psychiatry consulted, appreciate recs PRN IV Ativan 1mg q6h for anxiety Continue to monitor Diarrhea stool for C. difficile and culture Positive for c diff gene Appreciate further ID recs Diet: currently on clears DVT prophylaxis: SCDs in setting of worsening anemia Dispo: home once medically stable, consider pt/ot (2) Gastric bypass status for obesity: Admission and Anticipated Discharge Date Admission Date: February 03, 2024 Subjective patient was seen at the end of the day after her procedure. At that time she was shaking with heart rate in the 130s and blood pressure elevated. Had received news from general surgery that her pathology results were showing a possible malignancy. Patient was alert and talking throughout the event with improvement of symptoms after 1 mg of Ativan. Review of Systems Review of Systems: All systems reviewed & are unremarkable except as noted in Subjective Physical Exam Physical Exam: General: Alert, oriented. Psych: Appropriate mood and affect at the time of exam Neuro: difficulty with movementts in the bed HEENT: NC/AT CV: RRR Resp: no increased effort of breathing Abdomen: Soft, ostomy visible with bag Extremities: No edema in lower extremities bilaterally. Results & Data Results & Data Vital Signs (Past 12 Hours) Vital Signs Temp Pulse Pulse Resp BP BP Pulse Ox 02/06/24 14:12 88 112/83 02/06/24 13:26 82 17 120/82 94 02/06/24 13:00 36.9 C 78 16 115/74 94 02/06/24 12:40 90 21 104/82 93 02/06/24 12:30 36.5 C 78 15 110/89 92 02/06/24 12:20 78 12 119/89 92 02/06/24 12:10 78 12 117/86 93 02/06/24 12:00 85 15 107/85 94 02/06/24 11:50 92 H 17 124/67 94 02/06/24 11:42 36.5 C 89 19 106/79 92 02/06/24 08:48 36.9 C 85 20 111/78 90 02/06/24 07:35 37.4 C 90 16 111/75 91 02/06/24 07:01 90 02/06/24 04:00 37.2 C 90 18 107/71 91 O2 Del Method O2 Flow Rate 02/06/24 14:12 02/06/24 13:26 Nasal Cannula 3 02/06/24 13:00 Nasal Cannula 4 02/06/24 12:40 Nasal Cannula 4 02/06/24 12:30 Nasal Cannula 4 02/06/24 12:20 Nasal Cannula 4 02/06/24 12:10 Oxymask 5 02/06/24 12:00 Oxymask 10 02/06/24 11:50 Oxymask 10 02/06/24 11:42 Oxymask 10 02/06/24 08:48 Room Air 02/06/24 07:35 Room Air 02/06/24 07:01 02/06/24 04:00 Room Air Diagnostic Findings Chest/Abdomen X-ray 02/03/24 15:31 XR abdomen 2V w PA chest CLINICAL HISTORY: upright, diffuse ab pain TECHNIQUE: 2 views of the abdomen were obtained. A single view of the chest was obtained. Comparison: None available at the time of this dictation. FINDINGS: No lines and tubes are seen. The cardiomediastinal silhouette is normal. The lungs are clear. No evidence of pleural effusion or pneumothorax. The osseous structures are grossly unremarkable. The bowel gas pattern is nonobstructive. A moderate amount of stool is noted within the large bowel. IMPRESSION: Nonobstructive bowel gas pattern. ACT 112: Negative or not required by law. Electronically signed by: Homero Foster M.D. 02/03/2024 4:27 PM Abdomen/Pelvis CT 02/04/24 05:47 CR Exam(s): CT ABDOMEN + PELVIS With Contrast IV Amt: 93 ml optiray 320 EXAM: CT Abdomen and Pelvis With Intravenous Contrast CLINICAL HISTORY: Reason for exam: severe right sided abdominal pain. TECHNIQUE: Axial computed tomography images of the abdomen and pelvis with intravenous contrast. CTDI is 25.89 mGy and DLP is 1366.68 mGy-cm. Automated exposure control was utilized for the study. A dose lowering technique was utilized adhering to the principles of ALARA. CONTRAST: Patient received 93 ml optiray 320 of IV contrast COMPARISON: No relevant prior studies available. FINDINGS: Lung bases: Mild areas of atelectasis in the posterior inferior aspects of the lower lobes. ABDOMEN: Liver: Unremarkable. No mass. Gallbladder and bile ducts: Gallstones. No ductal dilation. Pancreas: Unremarkable. No mass. No ductal dilation. Spleen: Unremarkable. No splenomegaly. Adrenals: Unremarkable. No mass. Kidneys and ureters: Unremarkable. No solid mass. No hydronephrosis. Stomach and bowel: There is marked inflammatory process in the pelvis. This is centered around the sigmoid colon where there is abnormal wall thickening. There are some diverticula in the region. This is most suspicious for acute diverticulitis.. There are a few abnormal extraluminal air collections anterior to the thickened sigmoid colon consistent with perforation. No obstruction. PELVIS: Appendix: No findings to suggest acute appendicitis. Bladder: Unremarkable. No mass. Reproductive: 4 cm left ovarian cyst. ABDOMEN and PELVIS: Intraperitoneal space: A small amount of free fluid is seen around the liver and in the right paracolic gutter as well as the lower pelvis. The fluid in the lower right paracolic gutter showed some enhancement of the surrounding peritoneum and could be organizing into an early abscess. Bones/joints: No acute findings. Soft tissues: Umbilical hernia containing fat. Vasculature: Unremarkable. No abdominal aortic aneurysm. Lymph nodes: Unremarkable. No enlarged lymph nodes. IMPRESSION: Marked inflammatory process in the pelvis. This is likely due to acute diverticulitis of the sigmoid colon. There are extraluminal air collections adjacent to the sigmoid colon consistent with perforation. Free fluid in the abdomen and pelvis. A fluid collection in the lower right paracolic gutter showed some peripheral enhancement of the peritoneum and could be organizing into an early abscess. Communications: Call Doctor Pneumoperitoneum, new or unexpected Electronically signed by: Les Serra MD 02/04/24 07:11 AM Chest X-Ray 02/06/24 17:39 XR chest 1V portable CLINICAL HISTORY: sob TECHNIQUE: Single frontal radiograph of the chest was obtained. Comparison: Comparison is made to chest radiograph 01/26/2024 FINDINGS: No lines and tubes are seen. Cardiomegaly is noted. Lungs are underinflated but clear. No evidence of pleural effusion or pneumothorax. IMPRESSION: No acute chest disease. ACT 112: Negative or not required by law. Electronically signed by: Homero Foster M.D. 02/06/2024 6:08 PM
[2024-02-06] MEDS: POTASSIUM PHOSPHATE 15 MMOL in SODIUM CHLORIDE 0.9% 250 ML IV ONE (15:10)
[2024-02-06] MEDS: ERTAPENEM 1000MG 1,000 MG/10 ML SYR IV SCH (16:31)
[2024-02-06] MEDS: LORazepam 2 MG/1 ML VIAL IV STA (17:43)
--- NOTE | 2024-02-06 18:10 | XRay Report ---
XR chest 1V portable CLINICAL HISTORY: sob TECHNIQUE: Single frontal radiograph of the chest was obtained. Comparison: Comparison is made to chest radiograph 01/26/2024 FINDINGS: No lines and tubes are seen. Cardiomegaly is noted. Lungs are underinflated but clear. No evidence of pleural effusion or pneumothorax. IMPRESSION: No acute chest disease. ACT 112: Negative or not required by law. Electronically signed by: Homero Foster M.D. 02/06/2024 6:08 PM
[2024-02-06 18:20] LABS: Base Excess VBG -2.9 mEq/L; HCO3 VBG 23 mmol/L; Hematocrit (blood only) 32.2 % (37.0-47.0); Hemoglobin 9.7 g/dl (12.0-16.0); Mean Corpuscular Hemoglobin 24.7 pg (25.0-34.0); Mean Corpuscular Hgb Conc 30.1 g/dL (32.0-36.0); Mean Corpuscular Volume 82.1 fL (80.0-100.0); Mean Platelet Volume 9.4 fL (9.4-12.4); Nucleated RBC # (auto) 0.02 K/uL (0.00-0.12); Nucleated RBC % (auto) 0.3 %; Oxygen Saturation VBG < 60.0 %; PCO2 VBG 41 mmHg (38-50); PO2 VBG 22 mmHg; Platelet Count 290 K/uL (130-400); RDW Coefficient of Variation 15.8 % (11.5-14.5); RDW Standard Deviation 47.3 fL (36.4-46.3); Red Blood Count 3.92 M/uL (4.20-5.40); White Blood Count 6.95 K/ul (4.8-10.8); pH VBG 7.35 (7.36-7.41)
[2024-02-06 18:39] LABS: BUN Creatinine Ratio 15.7 (10-20); Calcium 7.9 mg/dl (8.6-10.3); Creatinine Clr Calc Pharmacy 112.4 ml/min; Potassium 3.9 mmol/L (3.5-5.1)
[2024-02-06 18:40] LABS: Basophils # (auto) 0.01 K/uL (0.00-0.20); Basophils % (auto) 0.1 %; Echinocytes 1+; Immature Granulocytes # (auto) 0.08 K/uL (0.01-0.20); Immature Granulocytes % (auto) 1.2 %; Lymphocytes # (auto) 0.28 K/uL (1.20-3.40); Monocytes # (auto) 0.09 K/uL (0.11-0.59); Monocytes % (auto) 1.3 %; Neutrophils # (auto) 6.49 K/uL (1.40-6.50); Neutrophils % (auto) 93.4 %; Ovalocytes 1+; Polychromasia 1+
[2024-02-06] MEDS: FAMOTIDINE 20 MG TAB PO SCH (20:22)
--- NOTE | 2024-02-07 03:41 | CT Scan Report ---
Exam(s): CT CHEST Without Contrast EXAM: CT Chest Without Intravenous Contrast CLINICAL HISTORY: Reason for exam: staging purposes. TECHNIQUE: Axial computed tomography images of the chest without intravenous contrast. CTDI is 25.84 mGy and DLP is 749 mGy-cm. Automated exposure control was utilized for the study. A dose lowering technique was utilized adhering to the principles of ALARA. COMPARISON: No relevant prior studies available. FINDINGS: Limitations: Limited examination in the absence of contrast. Lungs: Unremarkable. No mass. No consolidation. Pleural space: Moderate right and small left pleural effusions. No pneumothorax. Heart: Unremarkable. No cardiomegaly. No significant pericardial effusion. No significant coronary artery calcifications. Bones/joints: Degenerative changes in the spine. No acute fracture. No dislocation. Soft tissues: Unremarkable. Vasculature: Atherosclerotic disease. No thoracic aortic aneurysm. Lymph nodes: Unremarkable. No enlarged lymph nodes. Stomach and bowel: Gastric sleeve changes. Intraperitoneal space: Partially visualized free air in the abdomen. Consider correlation with prior operative history. IMPRESSION: 1. Limited examination in the absence of contrast. 2. Partially visualized free air in the abdomen. Consider correlation with prior operative history. 3. Limited examination given lack of clinical history and posttreatment history. Recommend continued attention on follow-up imaging as dictated per patient's primary malignancy. Communications: Verify Receipt Electronically signed by: Zeferino Salcedo MD 02/07/24 03:40 AM
--- NOTE | 2024-02-07 05:30 | Communication Note ---
Date of Service: February 07, 2024 Patient noted to be groggy and lethargic as per RN. Heart rate 50 to 60s BSG 120s. 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 Decrease Ativan dosing to 0.5 mg IV every 3 hours as needed anxiety with hold parameters for sedation/confusion.
[2024-02-07 06:10] LABS: Base Excess VBG 0.7 mEq/L; HCO3 VBG 24 mmol/L; Oxygen Saturation VBG 94.7 %; PCO2 VBG 35 mmHg (38-50); PO2 VBG 64 mmHg; pH VBG 7.45 (7.36-7.41)
[2024-02-07 06:15] LABS: Basophils # (auto) 0.02 K/uL (0.00-0.20); Basophils % (auto) 0.2 %; Hematocrit (blood only) 26.3 % (37.0-47.0); Hemoglobin 8.2 g/dl (12.0-16.0); Immature Granulocytes # (auto) 0.07 K/uL (0.01-0.20); Immature Granulocytes % (auto) 0.6 %; Lymphocytes # (auto) 0.87 K/uL (1.20-3.40); Lymphocytes % (auto) 7.8 %; Mean Corpuscular Hgb Conc 31.2 g/dL (32.0-36.0); Mean Corpuscular Volume 80.2 fL (80.0-100.0); Mean Platelet Volume 9.4 fL (9.4-12.4); Monocytes # (auto) 0.79 K/uL (0.11-0.59); Monocytes % (auto) 7.1 %; Neutrophils # (auto) 9.39 K/uL (1.40-6.50); Neutrophils % (auto) 84.3 %; Platelet Count 250 K/uL (130-400); RDW Coefficient of Variation 15.9 % (11.5-14.5); RDW Standard Deviation 46.4 fL (36.4-46.3); Red Blood Count 3.28 M/uL (4.20-5.40); White Blood Count 11.14 K/ul (4.8-10.8)
[2024-02-07 06:36] LABS: Albumin Globulin Ratio 1.1 (0.9-2); BUN Creatinine Ratio 22.2 (10-20); Bilirubin,Total 0.4 mg/dl (0.2-1.0); Calcium 7.9 mg/dl (8.6-10.3); Creatinine Clr Calc Pharmacy 176.9 ml/min; Globulin 2.7 gm/dl (2.5-4.0); Magnesium 1.9 mg/dl (1.7-2.4); Phosphorus 3.4 mg/dl (2.5-4.9); Potassium 3.9 mmol/L (3.5-5.1); Total Protein 5.7 gm/dl (6.0-8.3)
--- NOTE | 2024-02-07 08:29 | Electrocardiogram Report ---
Test Reason : Blood Pressure : */* mmHG Vent. Rate : 125 BPM Atrial Rate : 125 BPM P-R Int : 128 ms QRS Dur : 76 ms QT Int : 302 ms P-R-T Axes : * 188 158 degrees QTcB Int : 435 ms Poor data quality, interpretation may be adversely affected possible limb lead reversal (interpretation assumes no reversal) Sinus tachycardia Right superior axis deviation Abnormal ECG No previous ECGs available Confirmed by Reynaldo Cash ([id number]) on 02/07/2024 8:28:33 AM Referred By: REFERRED SELF Confirmed By: Reynaldo Cash
--- NOTE | 2024-02-07 08:31 | Electrocardiogram Report ---
Test Reason : Blood Pressure : */* mmHG Vent. Rate : 59 BPM Atrial Rate : 59 BPM P-R Int : 144 ms QRS Dur : 86 ms QT Int : 420 ms P-R-T Axes : 21 11 9 degrees QTcB Int : 415 ms Sinus bradycardia with sinus arrhythmia Otherwise normal ECG When compared with ECG of 06-Feb-2024 17:48, (unconfirmed) Vent. rate has decreased by 66 bpm T wave inversion now evident in Inferior leads T wave inversion no longer evident in Lateral leads Confirmed by Reynaldo Cash ([id number]) on 02/07/2024 8:31:39 AM Referred By: REFERRED SELF Confirmed By: Reynaldo Cash
--- NOTE | 2024-02-07 08:41 | Psychiatric Consultation ---
Date of Consultation February 07, 2024 Impression / Recommendations Impression Diagnostically consistent with adjustment disorder with anxiety in setting of acute shock/panic at news of possible new cancer diagnosis and following GI surgery with new colostomy. Acute risk of self-harm is low given denial of SI and feels well supported by family. She is interested in SSRI and mirtazapine trial to help with anticipated increase in mood symptoms if cancer is confirmed and to help allow for promotion of sleep, appetite and management of anxiety and prevention of depression. Reviewed possibility that SSRI can cause GI symptoms but she would like to start this as she feels the potential for side effects is outweighed by benefits for her mood moving forward. Overall, I spent a total of 60 minutes with this case including review of chart records, review of labwork, review of EKG QTc, direct evaluation of the patient at bedside, counseling the patient, discussion of the patient with the hospitalist provider, discussion with the psychiatric liason during clinical rounds, and documentation in the electronic health record. (1) Adjustment disorder with anxious mood: (2) Panic attack due to exceptional stress: (3) Perforated sigmoid colon: Plan -Start escitalopram 5mg daily, can increase to 10mg in 3-5 days based on tolerability (lack of GI symptoms, lack of WINSTON). If future plans for GI surgeries and concern for potential blood loss or increased bleeding risk then may need to stop SSRI as this can impact coagulation. -Start mirtazapine 15mg HS. May need to stop in future if concerns for bleeding risk per above. -Can continue to use ativan 0.5mg IV or po q6h prn for panic attacks. On discharge could consider script for ativan 0.5mg daily prn with goal being for short-term use for severe panic attacks. -Can also use Vistaril 25mg po TID prn for anxiety -Psych liason will provide information for possible outpatient therapy options Psych History Identifying Data 43 yo woman with a hx of bypass surgery and chronic diverticulitis presenting with worsening abdominal pain and was found to have diverticulitis with perforation and s/p surgery and colostomy now with pathology results suggestive for possible malignancy. Psychiatry consulted for severe panic attack. Chief Complaint "Ok, it's helping". History of Present Illness Deanna was informed that pathology samples following her recent GI surgical procedure show signs of possible malignancy last evening with subsequent severe panic attack vs acute shock reaction with HR changes. She responded well to IV ativan though appeared overly somnolent earlier this morning so ativan IV prn dose was reduced. She reports the ativan has been very beneficial for her anxiety. She is worried about what having cancer could mean and increased stress and appointments and life changes that would come with this. She has been on antidepressants in the past, typically for 1 year at a time during high stress situations with good effect. She recalls Zoloft and Escitalopram in the past. Found escitalopram quite helpful when she last used it for about a year. She's also interested in therapy. Additional history per psych liason note from 02/06/2024: "Met with patient for initial Psych consult at bedside. Patient is alert and oriented X4. Flat affect, sad but engaging with myself in conversation. She presented to the ER for worsening abdominal pain with hx of diverticulitis, resection of colon with infections. History of gastric bypass. She reports that she has been dealing with the diverticulitis since October of this year. She was informed today that the pathology report shows a malignancy in her colon. She has a hx of panic attacks when hospitalized and describes them as being froze, not being able to move and having increase in pain all over her body. She reports not having control of her body. She notes that she is taking Ativan and has taken in the past for anxiety and it is helping her. She reports being on antidepressant medications off an on throughout her life usually after childbirth, with postpardom depression, but has never stayed on any medications for very long. She states,"just normal life stuff" She states, "I was never thinking cancer this entire time" "very scared of the unknown" She denies having any therapy/therapists or out patient. Denies every having in patient. She has 5 children and feels that she has had her ups and downs but not needed medications up to this point. She reports having a support system but lives in [place], which is very far to travel to medical facilities. With her recent panic attack and newly diagnosis of CA with knowing very little regarding treatment/stage/ect., she would be very interested in med recommendations for depression/anxiety. She would also be interested in out patient therapy possibly for her /family. She denies drug use/alcohol. Denies feeling SI/HI, hallucinations/delusions. She expresses interest in seeing the psychiatrist. She is aware that she can reach out to the liaisons is she needs anything or wants to talk. She was thankful for visit. " Allergies Allergy/AdvReac Type Severity Reaction Status Date / Time No Known Allergies Allergy Verified 02/06/24 09:13 Home Medications Medication Instructions Recorded Confirmed Type oxycodone 5 mg tablet 5 - 10 mg (1 - 2 x 5 mg) PO 02/07/24 Rx .[id number] PRN pain, for initial therapy, max 6 tabs per day #15 tabs Patient History Medical History (Updated 02/07/24 @ 14:16 by Estrella Huertas MD) Depression with anxiety Surgical History (Updated 02/07/24 @ 12:17 by Verónica Carpio RN) H/O abdominal surgery (02/05/24) Exploratory Laparoscopy Revision of Colostomy and Stoma(Not Applicable) - Elizabeth Velasquez, DO History of H/O gastric sleeve History of colon resection (02/04/24) p Diagnostic Laparoscopy, with a laparoscopic colon resection, Abdominal Wash Out, Creation Colostomy(Not Applicable) - Elizabeth Velasquez, DO Extensive lysis of adhesions Social History Smoking Status: Unknown if ever smoked Hx Alcohol Use: No Hx Substance Use: No Preferred Language: Vietnamese Communication Ability: Effective Bagel Maker Required: No Beliefs That Will Affect Care: None Current Living Situation: Family Other Information That Helps Us Care for You: No Feels Safe at Home: Yes Safety Concerns: Feels Safe At This Time Assistive Devices: None Physical Exam Psychiatric: Orientation: alert and oriented x 3 Apperance: appropriately dressed and appropriately groomed Eye Contact: good eye contact Motor Behavior: no abnormal motor movements Speech: normal rate/rhythm/volume of speech Affect: + constricted affect Mood: + anxious mood Thought Process: linear/logical thought process Thought Content: reality based without delusions Suicidal Thoughts: denies suicidal thoughts Homicidal Thoughts: denies homicidal thoughts Hallucinations: no auditory hallucinations and no visual hallucinations Cognition: recent memory grossly intact, remote memory grossly intact, attention grossly intact and language grossly intact Estimated Intelligence: consistent with education level Insight: + fair insight Judgment: + fair judgement Vital Signs (Past 24 Hours): Last Vital Signs Temp 37.3 C 02/07/24 07:45 Pulse 56 L 02/07/24 07:52 Resp 18 02/07/24 07:45 BP 115/77 02/07/24 07:45 Pulse Ox 96 02/07/24 07:45 O2 Del Method Room Air 02/07/24 07:45 O2 Flow Rate 4.0 02/06/24 19:12 Results & Data (PSY) Medications Administered Famotidine (Famotidine 20 Mg Tab) 20 mg PO BID LORETTA Stop: 03/07/24 20:59 Last Admin: 02/06/24 20:22 Dose: 20 mg Documented By: GRICELDA Acetaminophen (Ofirmev) 1,000 mg in 100 mls @ 400 mls/hr IV Q8H LORETTA Stop: 02/08/24 10:29 Last Infusion: 02/07/24 03:52 Dose: Infused Documented By: Admin: 02/07/24 03:33 Dose: 400 mls/hr Documented By: Infusion: 02/06/24 18:35 Dose: Infused Documented By: Admin: 02/06/24 18:17 Dose: 400 mls/hr Documented By: Infusion: 02/06/24 13:55 Dose: Infused Documented By: Admin: 02/06/24 13:21 Dose: 400 mls/hr Documented By: Infusion: 02/06/24 03:46 Dose: Infused Documented By: Admin: 02/06/24 03:25 Dose: 400 mls/hr Documented By: Infusion: 02/05/24 17:56 Dose: Infused Documented By: Admin: 02/05/24 17:36 Dose: 400 mls/hr Documented By: Infusion: 02/05/24 12:43 Dose: Infused Documented By: Admin: 02/05/24 12:19 Dose: 400 mls/hr Documented By: ALIN Ertapenem (Invanz 1000mg) 1,000 mg in 10 mls @ 2 mls/min IV Q24H LORETTA Stop: 02/16/24 15:59 Last Admin: 02/06/24 16:31 Dose: 2 mls/min Documented By: HALEIGH Morphine Sulfate (Morphine Sulfate 2 Mg/Ml Carp) 2 mg IV Q3H PRN PRN Reason: Moderate Pain (Scale 4, 5, 6) Stop: 02/19/24 10:27 Last Admin: 02/06/24 14:18 Dose: 2 mg Documented By: Admin: 02/06/24 05:48 Dose: 2 mg Documented By: Admin: 02/06/24 01:47 Dose: 2 mg Documented By: Admin: 02/05/24 17:49 Dose: 2 mg Documented By: ALIN Ondansetron HCl (Ondansetron Inj 2 Mg/Ml 2 Ml Vial) 4 mg IV Q6H PRN PRN Reason: Nausea And Vomiting Stop: 03/04/24 19:12 Last Admin: 02/03/24 20:19 Dose: 4 mg Documented By: MARK Coding Level of Care Code 98274 IN/OBS CONSULT LVL 4,60M Diagnoses Adjustment disorder with anxious mood F43.22 Panic attack due to exceptional stress F41.0; F43.0 Perforated sigmoid colon K63.1
--- NOTE | 2024-02-07 09:53 | Surgery Progress Note ---
Date of Service February 07, 2024 Assessment & Plan (1) Perforated sigmoid colon: Plan: Patient is s/p laparoscopic abdominal wash out, colon resection and creation of colostomy on 02/03, now POD#1 revision of colostomy WBC 11, Hbg 8.2. CEA noted at 23. Vital signs are stable. Ostomy functioning this AM, beefy red with very small area of darkening to medial aspect that will likely improve over time. CHRIS drain serosang Pain manageable, tolerating clears without n/v. as ostomy is functioning we will advance pt to low fiber Preliminary pathology reviewed with patient. dr tate to discuss final pathology with her later today as it recently resulted s/p our visit. CEA 23, CT chest without mention of metastatic lesions Will discuss with medical team if we can expedite an oncologic appt for patient as an outpatient ID is following for abx guidance given ESBL on intraop cultures Wound care consulted for new colostomy teaching. Continue CHRIS drain until <30cc/day Upon discharge will need follow up in our office in 1-2 weeks. [facility] surgery covering the wknd Admission and Anticipated Discharge Date Admission Date: February 03, 2024 Supervising Physician Co-Signing Physician Notes I had seen and examined this patient in the am with the surgical team. After seeing her, pathology became available. I spoke with medical oncology and reviewed the patient's pathology with the pathology department. I then spoke again with the patient via phone regarding potential plans for cytoreductive surgery and [facility] at [facility] after treatment of perforation. Dr. Angulo with medical oncology had seen the patient as well. His note can be found in the patient's chart. Subjective Patient feeling okay. Some abdominal discomfort noted mostly when getting out of bed and moving. Otherwise tolerating clears thus far without nausea. Physical Exam Physical Exam: awake/alert, no distres Gastrointestinal (Abdomen): Percussion/Palpation: + abdomen tender (expected post op discomfort to palpation ) and abdomen soft + ostomy with gas and soft/liquid brown stool in bag. ostomy beefy red with small area of darkening to medial portion. incisions c/d/i. CHRIS drain serosang (40cc noted over last 12 hrs) Results & Data Vital Signs (Past 12 Hours) Vital Signs Temp Pulse Pulse Resp BP Pulse Ox O2 Del Method 02/07/24 07:52 56 L 02/07/24 07:45 99.1 F 57 L 18 115/77 96 Room Air 02/07/24 03:24 98.2 F 62 16 138/89 95 Room Air 02/07/24 01:57 98.2 F 60 16 107/66 93 Room Air 02/07/24 00:42 90 02/06/24 22:48 98.4 F 78 16 111/77 94 Room Air PG Care Time/CCT Total # of Minutes Spent Total Time Spent with Patient: Total time spent is greater than 50% in coordination of care (as documented) at patient's floor/unit and/or counseling patient: Coding Level of Care Code 07006 Post Operative Follow-Up Diagnoses Perforated sigmoid colon K63.1
[2024-02-07] MEDS: LORazepam 2 MG/1 ML VIAL IV PRN (10:08)
--- NOTE | 2024-02-07 13:06 | Hospitalist Progress Note ---
Date of Service February 07, 2024 Assessment & Plan (1) Acute diverticulitis: (2) Gastric bypass status for obesity: (3) Adenocarcinoma of colon: Plan Pt is a 43yoF with PMhx significant for Hx of bypass surgery and chronic diverticulitis presenting with worsening abdominal pain and was found to have diverticulitis with perforation. Later became septic requiring a laparoscopic colon resection, abdominal wash out and creation of a colostomy on 02/03 with exploratory lap revision of colostomy and stoma on 02/05. Sepsis Diverticulitis, Acute on chronic Bowel Perforation Pt presenting with known diverticulitis for which treatment had been prescribed but not initiated CT abd/pelvis in the ED noting diverticulitis with concern for perforation General surgery was consulted -s/p laparoscopic colon resection, abdominal wash out and creation of a colostomy on 02/03 -Pt requiring revision on 02/05, after noted anemia requiring transfusion -abdominal Cx 02/03 growing ESBL E.coli and Bacteroides -pathology of intraop samples noting adenocarcinoma of the colon IV Zosyn switched to IV Ertapenem on 02/05 ID consulted for further recs, appreciated Pain Control, antiemetics as needed Continue to monitor Adenocarcinoma of the colon Intraop pathology noting adenocarcinoma of the colon General surgery discussed findings with the pt Oncology consult placed, appreciate recs -Case discussed with Oncologist Dr Angulo on 02/07 Appreciate further oncology recs Acute on Chronic Anemia Acute Blood Loss anemia H/H slowly downtrending Hgb baseline 8-9 range Hgb 6.7 on 02/04 requiring transfusion of 1pRBC Transfuse prn for hgb<7 Continue to monitor Currently stable Panic Attacks Anxiety Pt notes a Hx of panic attacks States she typically gets them in the hospital On 02/05, pt with HR in 130s, BP elevated, requiring 4L of oxygen and uncontrollable shaking after being advised of preliminary read of pathology as possible malignancy Worked up further with EKG, chest XR, VBG, CBC, BMP, all stable or unremarkable IV Ativan 1mg given with noted improvement in symptoms Psychiatry consulted, appreciate recs. Recommended/stated the following: -escitalopram 5mg daily, can increase to 10mg in 3-5 days based on tolerability (lack of GI symptoms, lack of WINSTON, etc) -Start mirtazapine 15mg HS -Can continue to use ativan 0.5mg IV or po q6h prn for panic attacks. -On discharge could consider script for ativan 0.5mg daily prn with goal being for short-term use for severe panic attacks. -Can also use Vistaril 25mg po TID prn for anxiety Continue to monitor Diarrhea stool for C. difficile and culture Positive for c diff gene Appreciate further ID recs Hypophosphatemia Hypomagnesemia Replete as needed Diet: advancing diet as tolerated DVT prophylaxis: SCDs in setting of worsening anemia Dispo: home once medically stable, consider pt/ot Admission and Anticipated Discharge Date Admission Date: February 03, 2024 Subjective Patient was seen laying in bed at bedside States that she was just told that she had colon cancer. States she would like to follow-up with whichever oncology service can see her the soonest. Agreeable to the cancer care center at [facility]. 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 Review of Systems Review of Systems: All systems reviewed & are unremarkable except as noted in Subjective Physical Exam Physical Exam: General: Alert, oriented. Psych: Appropriate mood and affect at the time of exam Neuro: difficulty with movementts in the bed HEENT: NC/AT CV: RRR Resp: no increased effort of breathing Abdomen: Soft, ostomy bag with noted stool output Extremities: No edema in lower extremities bilaterally. Results & Data Results & Data Vital Signs (Past 12 Hours) Vital Signs Temp Pulse Pulse Resp BP Pulse Ox O2 Del Method 02/07/24 11:18 36.9 C 60 18 114/76 97 Room Air 02/07/24 07:52 56 L 02/07/24 07:45 37.3 C 57 L 18 115/77 96 Room Air 02/07/24 03:24 36.8 C 62 16 138/89 95 Room Air 02/07/24 01:57 36.8 C 60 16 107/66 93 Room Air
[2024-02-07] MEDS ORDERED: hydrOXYzine HCl 25 MG TAB PO PRN (13:14)
[2024-02-07] MEDS: ESCITALOPRAM OXALATE 10 MG TAB PO SCH (13:48)
--- NOTE | 2024-02-07 14:45 | Infectious Disease Consult ---
Date of Service February 07, 2024 Telehealth Information I performed this visit using a real-time telehealth connection between my location and the patients location ([facility]). After connecting through interactive tele-video, patient was identified by name and date of and/or wristband check.Patient (or authorized healthcare environmental marketing representative) was informed that this was a telemedicine visit and it was being conducted confidentially over secure lines. My office door was closed and no one else was present in the room with me.Patient (or authorized healthcare environmental marketing representative) provided consent to proceed with the visit, expressed an understanding of privacy and security of the telemedicine visit, and gave permission to have a hospital environmental marketing representative in the room in order to assist with the visit and to conduct portions of the visit, as needed. I informed the patient (or authorized healthcare environmental marketing representative) that I reviewed their record and presented the opportunity for them to ask any questions regarding the visit today. The patient agreed to participate. Assessment & Plan (1) Perforated sigmoid colon: (2) Peritonitis: (3) Adenocarcinoma, colon: (4) Status post exploratory laparotomy: Plan 1. I agree with the primary team on IV ertapenem 1 g daily. 2. Please confirm with the surgical team if there is still concern about some residual intraabdominal infected pockets or persistent perforation, if that's the case, then I would recommend keeping on ertapenem for at least [address] abd/pelvis towards the end of treatment course. If they performed very good and thorough washout of the abdomen, continue IV ertapenem while inpatient and stepdown to oral Bactrim DS twice daily with Augmentin 875/125 BID to complete a course of treatment of 14 days from the date of surgery. 3. Thank you for consulting infectious disease. We will continue to follow. History of Present Illness History of Present Illness Ms. King is a 43-year-old woman with medical history of gastric bypass surgery who was admitted to [facility] on 02/03/2024 because of abdominal pain and was found to have diverticulitis. He initially presented to an outside facility with a CAT scan abdomen and pelvis concerning for diverticulitis and was sent out on oral antibiotics to follow-up with surgery outpatient. However, her condition got worse, and she is starting to have chills and sweat which prompted her to come to the emergency department. On presentation, she was afebrile, and her vitals were within normal limits; however, a few hours after admission she became tachycardic and started spiking fevers up to 39.4. CT of the abdomen and pelvis performed on presentation showed marked inflammatory process in the pelvis which was suspected to be secondary to complicated diverticulitis. There were also some extraluminal air collections adjacent to the sigmoid colon consistent with perforation. A fluid collection in the lower right paracolic gutter showed some peripheral enhancement suggesting the beginning of an abscess. She eventually underwent ex lap with partial colectomy and washout on 02/04 and revision of colostomy and stoma on 02/05. The intraoperative infected colonic part was inflamed and thick and was sent to pathology which was suggestive of adenocarcinoma. Intraoperative tissue culture from the washout grew Bacteroides and ESBL E. coli. ID team was consulted for further recommendations and to help guide antibiotic treatment. Allergies Allergy/AdvReac Type Severity Reaction Status Date / Time No Known Allergies Allergy Verified 02/06/24 09:13 Home Medications Medication Instructions Recorded Confirmed Type oxycodone 5 mg tablet 5 - 10 mg (1 - 2 x 5 mg) PO 02/07/24 Rx .[id number] PRN pain, for initial therapy, max 6 tabs per day #15 tabs Patient History Medical History (Updated 02/07/24 @ 14:44 by Zari Mena MD) Depression with anxiety Surgical History (Updated 02/07/24 @ 14:44 by Zari Mena MD) H/O abdominal surgery (02/05/24) Exploratory Laparoscopy Revision of Colostomy and Stoma(Not Applicable) - Elizabeth Velasquez DO History of H/O gastric sleeve History of colon resection (02/04/24) p Diagnostic Laparoscopy, with a laparoscopic colon resection, Abdominal Wash Out, Creation Colostomy(Not Applicable) - Elizabeth Velasquez, Extensive lysis of adhesions Social History Smoking Status: Unknown if ever smoked Hx Alcohol Use: No Hx Substance Use: No Preferred Language: Bangladeshi Communication Ability: Effective Painter Barrel Required: No Beliefs That Will Affect Care: None Current Living Situation: Family Other Information That Helps Us Care for You: No Feels Safe at Home: Yes Safety Concerns: Feels Safe At This Time Assistive Devices: None Review of Systems Neg except for what was mentioned in H&P. Physical Exam Couldn't be performed as the visit was conducted via telemed. Results & Data Vital Signs (Past 12 Hours) Vital Signs Temp Pulse Pulse Resp BP Pulse Ox O2 Del Method 02/07/24 11:18 36.9 C 60 18 114/76 97 Room Air 02/07/24 07:52 56 L 02/07/24 07:45 37.3 C 57 L 18 115/77 96 Room Air 02/07/24 03:24 36.8 C 62 16 138/89 95 Room Air Laboratory Results Microbiology: 02/03: Abdominal washout culture growing ESBL E. coli and Bacteroides Diagnostic Findings Imaging: CT scan of the abdomen and pelvis on 01/25 Marked inflammatory process in the pelvis. This is likely due to acute diverticulitis of the sigmoid colon. There are extraluminal air collections adjacent to the sigmoid colon consistent with perforation. Free fluid in the abdomen and pelvis. A fluid collection in the lower right paracolic gutter showed some peripheral enhancement of the peritoneum and could be organized into an early abscess.
--- NOTE | 2024-02-07 18:53 | Oncology Consultation ---
Date of Consultation February 07, 2024 Assessment & Plan (1) Adenocarcinoma of colon: had a lengthy discussion with the patient and her today she will definitely need adjuvant chemotherapy given that she had perforated colorectal cancer. I will also recommend evaluation by colorectal surgery once she is discharged from the hospital at [facility] for consideration of cytoreductive surgery and HIPEC. At this point would recommend continuation of antibiotics for her sepsis and peritonitis. Will recommend outpatient placement of Mediport, institution of palliative systemic chemotherapy (2) Peritonitis: . Continue IV antibiotics, rest of the management per our hospital internal medicine team. Plan Thank you for this interesting oncological consult. A total of 60 minutes were spent in counseling, coronation care, review of prior records. Medical oncology will continue to follow the patient make appropriate recommendations. patient will be followed on an outpatient basis. History of Present Illness Reason for Consultation: Colorectal cancer Attending Physician: Esperanza Farias MD History of Present Illness the patient is a very pleasant 43-year-old woman who was admitted to [facility] because of perforated sigmoid colon, status post laparoscopic abdominal washout, colonic resection and creation of colostomy on 1028. Her surgical pathology revealed colorectal cancer. Interestingly the patient has had multiple visits to the ER over the last 6 months with diverticulitis and has been started on antibiotics multiple times. She was scheduled to see gastroenterology however because of her ongoing diverticulitis could never be evaluated. Surgical pathology report revealedTumor Site: Descending colon Histologic Type: Adenocarcinoma Histologic Grade: G2, moderately differentiated Tumor Size: Cannot be determined (explain): No distinct mass lesion was seen and the specimen was not submitted as tumor for initial grossing Multiple Primary Sites: Not applicable (no additional primary site(s) present) Tumor Extent: Directly invades or adheres to adjacent structure(s)(specify): Colon was directly adherent to small bowel, mesentery, and uterus (per surgeon) Macroscopic Tumor Perforation: Present Lymphatic and/or Vascular Invasion: Not identified Perineural Invasion: Not identified Tumor Budding Score: High (10 or more) Treatment Effect: No known presurgical therapy Margin Status for Invasive Carcinoma: Invasive carcinoma present at margin Margin(s) Involved by Invasive Carcinoma: Cannot be determined: one of the stapled ends shows tumor (un-oriented) Margin Status for Non-invasive Tumor: Cannot be determined Regional Lymph Node Status: Not applicable (no regional lymph nodes submitted or found) Tumor Deposits: Not identified Pathologic Stage Classification: pT4b [pN not assigned (no nodes submitted or found). preoperative CT scan did not show any evidence of metastatic disease, CEA was elevated. Medical oncology has been consulted to assist in management of this patient with newly identified colorectal cancer. Her other medical issues currently include ESBL in the peripheral blood. Allergies Allergy/AdvReac Type Severity Reaction Status Date / Time No Known Allergies Allergy Verified 02/06/24 09:13 Home Medications Medication Instructions Recorded Confirmed Type oxycodone 5 mg tablet 5 - 10 mg (1 - 2 x 5 mg) PO 02/07/24 Rx .[id number] PRN pain, for initial therapy, max 6 tabs per day #15 tabs Patient History Medical History (Updated 02/07/24 @ 14:44 by Zari Mena MD) Depression with anxiety Surgical History (Updated 02/07/24 @ 14:44 by Zari Mena MD) H/O abdominal surgery (02/05/24) Exploratory Laparoscopy Revision of Colostomy and Stoma(Not Applicable) - Elizabeth Velasquez, History of H/O gastric sleeve History of colon resection (02/04/24) p Diagnostic Laparoscopy, with a laparoscopic colon resection, Abdominal Wash Out, Creation Colostomy(Not Applicable) - Elizabeth Velasquez, DO Extensive lysis of adhesions Social History Smoking Status: Unknown if ever smoked Hx Alcohol Use: No Hx Substance Use: No Preferred Language: Wolof Communication Ability: Effective Warehouse Hand Required: No Beliefs That Will Affect Care: None Current Living Situation: Family Other Information That Helps Us Care for You: No Feels Safe at Home: Yes Safety Concerns: Feels Safe At This Time Assistive Devices: None Review of Systems Review of Systems: All systems reviewed & are unremarkable except as noted in HPI & below Fatigue, diarrhea, abdominal pain Constitutional: as per Subjective / HPI Eyes: as per Subjective / HPI Ear, Nose, Mouth, Throat: as per Subjective / HPI Respiratory: as per Subjective / HPI Cardiovascular: as per Subjective / HPI Gastrointestinal: as per Subjective / HPI Genitourinary: as per Subjective / HPI Musculoskeletal: as per Subjective / HPI Integumentary: as per Subjective / HPI Neurologic: as per Subjective / HPI Psychiatric: as per Subjective / HPI Endocrine: as per Subjective / HPI Hematologic / Lymphatic: as per Subjective / HPI Physical Exam Constitutional: WD/WN, vitals as above Eyes: PERRL, conjunctivae normal, anicteric sclerae ENMT: external ear and nose normal, oropharynx normal Neck: trachea midline, no thyromegaly Respiratory: normal respiratory effort, lungs clear to auscultation Cardiovascular: RRR, no murmur, no edema Gastrointestinal (Abdomen): normal bowel sounds, soft, nontender, no hepatosplenomegaly Musculoskeletal: no cyanosis or clubbing, extremities motor strength 5/5 Skin: no rashes, warm and dry Neurologic: patellar DTR's 2+ bilat, sensation intact Results & Data Vital Signs (Past 12 Hours) Vital Signs Temp Pulse Pulse Resp BP Pulse Ox O2 Del Method 02/07/24 15:23 36.8 C 64 18 117/81 96 Room Air 02/07/24 15:09 77 02/07/24 11:18 36.9 C 60 18 114/76 97 Room Air 02/07/24 07:52 56 L 02/07/24 07:45 37.3 C 57 L 18 115/77 96 Room Air
[2024-02-07] MEDS: MIRTAZAPINE TAB 15 MG TAB PO SCH (19:59)
[2024-02-08 06:04] LABS: Basophils # (auto) 0.02 K/uL (0.00-0.20); Basophils % (auto) 0.2 %; Eosinophils # (auto) 0.19 K/uL (0.00-0.50); Hematocrit (blood only) 24.6 % (37.0-47.0); Hemoglobin 7.6 g/dl (12.0-16.0); Immature Granulocytes # (auto) 0.16 K/uL (0.01-0.20); Immature Granulocytes % (auto) 1.7 %; Lymphocytes # (auto) 2.37 K/uL (1.20-3.40); Lymphocytes % (auto) 24.8 %; Mean Corpuscular Hemoglobin 24.4 pg (25.0-34.0); Mean Corpuscular Hgb Conc 30.9 g/dL (32.0-36.0); Mean Corpuscular Volume 79.1 fL (80.0-100.0); Mean Platelet Volume 9.5 fL (9.4-12.4); Monocytes # (auto) 0.81 K/uL (0.11-0.59); Monocytes % (auto) 8.5 %; Neutrophils # (auto) 6.02 K/uL (1.40-6.50); Neutrophils % (auto) 62.8 %; Nucleated RBC # (auto) 0.02 K/uL (0.00-0.12); Nucleated RBC % (auto) 0.2 %; Platelet Count 265 K/uL (130-400); RDW Coefficient of Variation 16.5 % (11.5-14.5); RDW Standard Deviation 47.4 fL (36.4-46.3); Red Blood Count 3.11 M/uL (4.20-5.40); White Blood Count 9.57 K/ul (4.8-10.8)
[2024-02-08 06:22] LABS: Albumin Globulin Ratio 1.1 (0.9-2); Albumin Level 2.8 gm/dl (3.4-5.0); BUN Creatinine Ratio 26.4 (10-20); Bilirubin,Total 0.3 mg/dl (0.2-1.0); Calcium 7.7 mg/dl (8.6-10.3); Creatinine Clr Calc Pharmacy 152.8 ml/min; Globulin 2.5 gm/dl (2.5-4.0); Phosphorus 2.9 mg/dl (2.5-4.9); Potassium 3.3 mmol/L (3.5-5.1); Total Protein 5.3 gm/dl (6.0-8.3)
[2024-02-08 06:29] LABS: Polychromasia 1+
[2024-02-08] MEDS: POTASSIUM CHLORIDE CRTAB 20 MEQ TABCR PO STA (07:27)
--- NOTE | 2024-02-08 10:08 | Hospitalist Progress Note ---
Date of Service February 08, 2024 Assessment & Plan (1) Acute diverticulitis: (2) Gastric bypass status for obesity: (3) Adenocarcinoma of colon: Plan Pt is a 43yoF with PMhx significant for Hx of bypass surgery and chronic diverticulitis presenting with worsening abdominal pain and was found to have diverticulitis with perforation. Later became septic requiring a laparoscopic colon resection, abdominal wash out and creation of a colostomy on 02/03 with exploratory lap revision of colostomy and stoma on 02/05. Sepsis Diverticulitis, Acute on chronic Bowel Perforation Pt presenting with known diverticulitis for which treatment had been prescribed but not initiated CT abd/pelvis in the ED noting diverticulitis with concern for perforation General surgery was consulted -s/p laparoscopic colon resection, abdominal wash out and creation of a colostomy on 02/03 -Pt requiring revision on 02/05, after noted anemia requiring transfusion -abdominal Cx 02/03 growing ESBL E.coli and Bacteroides -surgical pathology of intraop samples noting adenocarcinoma of the colon IV Zosyn switched to IV Ertapenem on 02/05 ID consulted for further recs, appreciated. Recommended/stated the following on 02/06: "1. I agree with the primary team on IV ertapenem 1 g daily. 2. Please confirm with the surgical team if there is still concern about some residual intraabdominal infected pockets or persistent perforation, if that's the case, then I would recommend keeping on ertapenem for at least [address] abd/pelvis towards the end of treatment course. If they performed very good and thorough washout of the abdomen, continue IV ertapenem while inpatient and stepdown to oral Bactrim DS twice daily with Augmentin 875/125 BID to complete a course of treatment of 14 days from the date of surgery." Pain Control, antiemetics as needed Continue to monitor Adenocarcinoma of the colon Intraop pathology noting adenocarcinoma of the colon General surgery discussed findings with the pt Oncology consult placed, appreciate recs -Case discussed with [facility] Oncologist Dr Angulo on 02/07. Recommended/stated the following: " had a lengthy discussion with the patient and her today she will definitely need adjuvant chemotherapy given that she had perforated colorectal cancer. I will also recommend evaluation by colorectal surgery once she is disc harged from the hospital at [facility] for consideration of cytoreductive surgery and HIPEC. At this point would recommend continuation of antibiotics for her sepsis and peritonitis. Will recommend outpatient placement of Mediport, institution of palliative systemic chemotherapy" Oncology followup after discharge Acute on Chronic Anemia Acute Blood Loss anemia H/H slowly downtrending Hgb baseline 8-9 range Hgb 6.7 on 02/04 requiring transfusion of 1pRBC Transfuse prn for hgb<7 Continue to monitor Currently stable Panic Attacks Anxiety Pt notes a Hx of panic attacks States she typically gets them in the hospital On 02/05, pt with HR in 130s, BP elevated, requiring 4L of oxygen and uncontrollable shaking after being advised of preliminary read of pathology as possible malignancy Worked up further with EKG, chest XR, VBG, CBC, BMP, all stable or unremarkable IV Ativan 1mg given with noted improvement in symptoms Psychiatry consulted, appreciate recs. Recommended/stated the following: -escitalopram 5mg daily, can increase to 10mg in 3-5 days based on tolerability (lack of GI symptoms, lack of WINSTON, etc) -Start mirtazapine 15mg HS -Can continue to use ativan 0.5mg IV or po q6h prn for panic attacks. -On discharge could consider script for ativan 0.5mg daily prn with goal being for short-term use for severe panic attacks. -Can also use Vistaril 25mg po TID prn for anxiety Continue to monitor Diarrhea stool for C. difficile and culture Positive for c diff gene Appreciate further ID recs Hypophosphatemia Hypomagnesemia Hypokalemia Replete as needed Diet: advancing diet as tolerated DVT prophylaxis: SCDs in setting of worsening anemia Dispo: home once medically stable, consider pt/ot Admission and Anticipated Discharge Date Admission Date: February 03, 2024 Subjective Patient was seen laying in bed. States that today she feels depressed rather than anxious. Notes that she has abdominal pain. Only with movement States she just feels very tired. States she has been tolerating food without abdominal pain Review of Systems Review of Systems: All systems reviewed & are unremarkable except as noted in Subjective Physical Exam Physical Exam: General: Alert, oriented. Psych: Appropriate mood and affect at the time of exam Neuro: difficulty with movementts in the bed HEENT: NC/AT CV: RRR Resp: no increased effort of breathing Abdomen: Soft, ostomy bag with noted stool output Extremities: No edema in lower extremities bilaterally. Results & Data Results & Data Vital Signs (Past 12 Hours) Vital Signs Temp Pulse Pulse Resp BP Pulse Ox O2 Del Method 02/08/24 07:13 37.2 C 74 18 121/81 95 Room Air 02/08/24 02:52 37.2 C 76 16 113/79 96 Room Air 02/08/24 01:00 72 02/07/24 22:32 36.9 C 69 16 127/86 94 Room Air
[2024-02-08 10:27] LABS: Hematocrit (blood only) 25.9 % (37.0-47.0); Hemoglobin 8.2 g/dl (12.0-16.0)
--- NOTE | 2024-02-08 12:18 | Surgery Progress Note ---
Date of Service February 08, 2024 Assessment & Plan (1) Adenocarcinoma of colon: Plan: pain control issue but improving ambulate taking po well Admission and Anticipated Discharge Date Admission Date: February 03, 2024 Subjective c/o pain around ostomy site taking po well ostomy with some liquid stool Review of Systems Constitutional: no fever and no chills Respiratory: no cough and no dyspnea Cardiovascular: no chest pain Gastrointestinal: + abdominal pain; no nausea and no vomit ing Genitourinary: no dysuria Neurologic: no localized weakness and no generalized weakness Psychiatric: no behavioral changes Hematologic / Lymphatic: no easy bleeding and no easy bruising Physical Exam Constitutional: WD/WN, vitals as above Respiratory: normal respiratory effort, lungs clear to auscultation Cardiovascular: RRR, no murmur, no edema Gastrointestinal (Abdomen): Inspection/Auscultation: abdomen normal to inspection and normal bowel sounds; abdomen not distended and no visible herniation Percussion/Palpation: + abdomen tender and abdomen soft; no guarding and abdomen not rigid ostomy pink and patent Musculoskeletal: Head/Neck/Chest: normocephalic and head atraumatic Results & Data Vital Signs (Past 12 Hours) Vital Signs Temp Pulse Pulse Resp BP Pulse Ox O2 Del Method 02/08/24 11:43 37.9 C H 79 18 114/80 96 Room Air 02/08/24 08:00 86 02/08/24 07:13 37.2 C 74 18 121/81 95 Room Air 02/08/24 02:52 37.2 C 76 16 113/79 96 Room Air 02/08/24 01:00 72
[2024-02-08] MEDS: oxyCODONE HCL IR 5 MG TAB (IMMEDIATE RELEASE) PO PRN (17:17)
[2024-02-09] MEDS ORDERED: VANCOMYCIN HCL 125 MG/2.5ML SOLN PO SCH (06:00)
[2024-02-09 06:50] LABS: Basophils # (auto) 0.03 K/uL (0.00-0.20); Basophils % (auto) 0.3 %; Eosinophils % (auto) 3.1 %; Hematocrit (blood only) 25.4 % (37.0-47.0); Hemoglobin 7.9 g/dl (12.0-16.0); Immature Granulocytes % (auto) 2.1 %; Lymphocytes # (auto) 2.33 K/uL (1.20-3.40); Lymphocytes % (auto) 24.2 %; Mean Corpuscular Hemoglobin 24.8 pg (25.0-34.0); Mean Corpuscular Hgb Conc 31.1 g/dL (32.0-36.0); Mean Corpuscular Volume 79.6 fL (80.0-100.0); Mean Platelet Volume 9.9 fL (9.4-12.4); Monocytes # (auto) 0.87 K/uL (0.11-0.59); Neutrophils % (auto) 61.3 %; Platelet Count 269 K/uL (130-400); RDW Coefficient of Variation 16.8 % (11.5-14.5); RDW Standard Deviation 48.2 fL (36.4-46.3); Red Blood Count 3.19 M/uL (4.20-5.40); White Blood Count 9.63 K/ul (4.8-10.8)
[2024-02-09 07:15] LABS: Albumin Globulin Ratio 1.1 (0.9-2); Albumin Level 2.8 gm/dl (3.4-5.0); BUN Creatinine Ratio 23.9 (10-20); Bilirubin,Total 0.3 mg/dl (0.2-1.0); Calcium 7.8 mg/dl (8.6-10.3); Creatinine Clr Calc Pharmacy 172.1 ml/min; Globulin 2.5 gm/dl (2.5-4.0); Magnesium 1.9 mg/dl (1.7-2.4); Phosphorus 4.3 mg/dl (2.5-4.9); Polychromasia 1+; Potassium 3.5 mmol/L (3.5-5.1); Total Protein 5.3 gm/dl (6.0-8.3)
--- NOTE | 2024-02-09 11:17 | Surgery Progress Note ---
Date of Service February 09, 2024 Assessment & Plan (1) Adenocarcinoma, colon: Plan: ambulate await bowel function low fiber diet slow progress Admission and Anticipated Discharge Date Admission Date: February 03, 2024 Subjective complains of pain around ostomy and drain taking po OK some ambulation no fevers labs look good Review of Systems Constitutional: no fever and no chills Respiratory: no cough and no dyspnea Cardiovascular: no chest pain Gastrointestinal: + abdominal pain and + change in bowel h abits (some thin feculent liquid); no nausea and no vomiting Genitourinary: no dysuria Neurologic: + generalized weakness; no localized wea kness Psychiatric: no behavioral changes Physical Exam Respiratory: normal respiratory effort, lungs clear to auscultation Cardiovascular: RRR, no murmur, no edema Gastrointestinal (Abdomen): Inspection/Auscultation: abdomen normal to inspection and normal bowel sounds; abdomen not distended Percussion/Palpation: + abdomen tender and abdomen soft; no guarding and abdomen not rigid ostomy pink and patent Musculoskeletal: Head/Neck/Chest: normocephalic and head atraumatic Skin: no rashes, warm and dry Results & Data Vital Signs (Past 12 Hours) Vital Signs Temp Pulse Pulse Resp BP Pulse Ox O2 Del Method 02/09/24 08:07 80 02/09/24 07:14 36.9 C 79 17 120/84 94 Room Air 02/09/24 02:26 37.2 C 78 16 132/87 95 Room Air 02/09/24 00:24 37.2 C 02/09/24 00:20 79
--- NOTE | 2024-02-09 12:04 | Hospitalist Progress Note ---
Date of Service February 09, 2024 Assessment & Plan (1) Acute diverticulitis: (2) Gastric bypass status for obesity: (3) Adenocarcinoma of colon: Plan Pt is a 43yoF with PMhx significant for Hx of bypass surgery and chronic diverticulitis presenting with worsening abdominal pain and was found to have diverticulitis with perforation. Later became septic requiring a laparoscopic colon resection, abdominal wash out and creation of a colostomy on 02/03 with exploratory lap revision of colostomy and stoma on 02/05. Sepsis Diverticulitis, Acute on chronic Bowel Perforation Pt presenting with known diverticulitis for which treatment had been prescribed but not initiated CT abd/pelvis in the ED noting diverticulitis with concern for perforation General surgery was consulted -s/p laparoscopic colon resection, abdominal wash out and creation of a colostomy on 02/03 -Pt requiring revision on 02/05, after noted anemia requiring transfusion -abdominal Cx 02/03 growing ESBL E.coli and Bacteroides -surgical pathology of intraop samples noting adenocarcinoma of the colon IV Zosyn switched to IV Ertapenem on 02/05 ID consulted for further recs, appreciated. Recommended/stated the following on 02/06: "1. I agree with the primary team on IV ertapenem 1 g daily. 2. Please confirm with the surgical team if there is still concern about some residual intraabdominal infected pockets or persistent perforation, if that's the case, then I would recommend keeping on ertapenem for at least [address] abd/pelvis towards the end of treatment course. If they performed very good and thorough washout of the abdomen, continue IV ertapenem while inpatient and stepdown to oral Bactrim DS twice daily with Augmentin 875/125 BID to complete a course of treatment of 14 days from the date of surgery." Pain Control, antiemetics as needed Continue to monitor 02/09/2024-discussed patient's pain with Dr. Silverman, advised ok to continue to monitor, no repeat CT abdomen pelvis at this time. Advised following up tomorrow. Adenocarcinoma of the colon Intraop pathology noting adenocarcinoma of the colon General surgery discussed findings with the pt Oncology consult placed, appreciate recs -Case discussed with [facility] [place] Angulo on 02/07. Recommended/stated the following: " had a lengthy discussion with the patient and her today she will definitely need adjuvant chemotherapy given that she had perforated colorectal cancer. I will also recommend evaluation by colorectal surgery once she is discharged from the hospital at [facility] for consideration of cytoreductive surgery and HIPEC. At this point would recommend continuation of antibiotics for her sepsis and peritonitis. Will recommend outpatient placement of Mediport, institution of palliative systemic chemotherapy" Oncology followup after discharge Acute on Chronic Anemia Acute Blood Loss anemia H/H slowly downtrending intially Hgb baseline 8-9 range Hgb 6.7 on 02/04 requiring transfusion of 1UpRBC Transfuse prn for hgb<7 Continue to monitor Currently stable Panic Attacks Anxiety Pt notes a Hx of panic attacks States she typically gets them in the hospital On 02/05, pt with HR in 130s, BP elevated, requiring 4L of oxygen and uncontrollable shaking after being advised of preliminary read of pathology as possible malignancy Worked up further with EKG, chest XR, VBG, CBC, BMP, all stable or unremarkable IV Ativan 1mg given with noted improvement in symptoms Psychiatry consulted, appreciate recs. Recommended/stated the following: -escitalopram 5mg daily, can increase to 10mg in 3-5 days based on tolerability (lack of GI symptoms, lack of WINSTON, etc) -Start mirtazapine 15mg HS -Can continue to use ativan 0.5mg IV or po q6h prn for panic attacks. -On discharge could consider script for ativan 0.5mg daily prn with goal being for short-term use for severe panic attacks. -Can also use Vistaril 25mg po TID prn for anxiety Continue to monitor Diarrhea stool for C. difficile and culture Positive for c diff gene Appreciate further ID recs Hypophosphatemia Hypomagnesemia Hypokalemia Replete as needed Diet: advancing diet as tolerated DVT prophylaxis: SCDs in setting of worsening anemia Dispo: home once medically stable, consider pt/ot Admission and Anticipated Discharge Date Admission Date: February 03, 2024 Subjective patient was seen in the a.m.a.m. was sleeping awakened for the exam. States that she feels tired Concerned about how she can go home states she cannot walk no further episodes of panic attacks Concerned about her abdominal pain that remains persistent around the ostomy site Review of Systems Review of Systems: All systems reviewed & are unremarkable except as noted in Subjective Physical Exam Physical Exam: General: Alert, oriented. Psych: Appropriate mood and affect at the time of exam Neuro: difficulty with movements in the bed HEENT: NC/AT CV: RRR Resp: no increased effort of breathing Abdomen: Soft, ostomy bag with noted stool output and tenderness around it Extremities: No edema in lower extremities bilaterally. Results & Data Results & Data Vital Signs (Past 12 Hours) Vital Signs Temp Pulse Pulse Resp BP Pulse Ox O2 Del Method 02/09/24 11:51 36.9 C 81 18 122/86 94 Room Air 02/09/24 08:07 80 02/09/24 07:14 36.9 C 79 17 120/84 94 Room Air 02/09/24 02:26 37.2 C 78 16 132/87 95 Room Air Diagnostic Findings Chest/Abdomen X-ray 02/03/24 15:31 XR abdomen 2V w PA chest CLINICAL HISTORY: upright, diffuse ab pain TECHNIQUE: 2 views of the abdomen were obtained. A single view of the chest was obtained. Comparison: None available at the time of this dictation. FINDINGS: No lines and tubes are seen. The cardiomediastinal silhouette is normal. The lungs are clear. No evidence of pleural effusion or pneumothorax. The osseous structures are grossly unremarkable. The bowel gas pattern is nonobstructive. A moderate amount of stool is noted within the large bowel. IMPRESSION: Nonobstructive bowel gas pattern. ACT 112: Negative or not required by law. Electronically signed by: Homero Foster M.D. 02/03/2024 4:27 PM Abdomen/Pelvis CT 02/04/24 05:47 CR Exam(s): CT ABDOMEN + PELVIS With Contrast IV Amt: 93 ml optiray 320 EXAM: CT Abdomen and Pelvis With Intravenous Contrast CLINICAL HISTORY: Reason for exam: severe right sided abdominal pain. TECHNIQUE: Axial computed tomography images of the abdomen and pelvis with intravenous contrast. CTDI is 25.89 mGy and DLP is 1366.68 mGy-cm. Automated exposure control was utilized for the study. A dose lowering technique was utilized adhering to the principles of ALARA. CONTRAST: Patient received 93 ml optiray 320 of IV contrast COMPARISON: No relevant prior studies available. FINDINGS: Lung bases: Mild areas of atelectasis in the posterior inferior aspects of the lower lobes. ABDOMEN: Liver: Unremarkable. No mass. Gallbladder and bile ducts: Gallstones. No ductal dilation. Pancreas: Unremarkable. No mass. No ductal dilation. Spleen: Unremarkable. No splenomegaly. Adrenals: Unremarkable. No mass. Kidneys and ureters: Unremarkable. No solid mass. No hydronephrosis. Stomach and bowel: There is marked inflammatory process in the pelvis. This is centered around the sigmoid colon where there is abnormal wall thickening. There are some diverticula in the region. This is most suspicious for acute diverticulitis.. There are a few abnormal extraluminal air collections anterior to the thickened sigmoid colon consistent with perforation. No obstruction. PELVIS: Appendix: No findings to suggest acute appendicitis. Bladder: Unremarkable. No mass. Reproductive: 4 cm left ovarian cyst. ABDOMEN and PELVIS: Intraperitoneal space: A small amount of free fluid is seen around the liver and in the right paracolic gutter as well as the lower pelvis. The fluid in the lower right paracolic gutter showed some enhancement of the surrounding peritoneum and could be organizing into an early abscess. Bones/joints: No acute findings. Soft tissues: Umbilical hernia containing fat. Vasculature: Unremarkable. No abdominal aortic aneurysm. Lymph nodes: Unremarkable. No enlarged lymph nodes. IMPRESSION: Marked inflammatory process in the pelvis. This is likely due to acute diverticulitis of the sigmoid colon. There are extraluminal air collections adjacent to the sigmoid colon consistent with perforation. Free fluid in the abdomen and pelvis. A fluid collection in the lower right paracolic gutter showed some peripheral enhancement of the peritoneum and could be organizing into an early abscess. Communications: Call Doctor Pneumoperitoneum, new or unexpected Electronically signed by: Les Serra MD 02/04/24 07:[address] 02/06/24 12:54 CR Exam(s): CT CHEST Without Contrast EXAM: CT Chest Without Intravenous Contrast CLINICAL HISTORY: Reason for exam: staging purposes. TECHNIQUE: Axial computed tomography images of the chest without intravenous contrast. CTDI is 25.84 mGy and DLP is 749 mGy-cm. Automated exposure control was utilized for the study. A dose lowering technique was utilized adhering to the principles of ALARA. COMPARISON: No relevant prior studies available. FINDINGS: Limitations: Limited examination in the absence of contrast. Lungs: Unremarkable. No mass. No consolidation. Pleural space: Moderate right and small left pleural effusions. No pneumothorax. Heart: Unremarkable. No cardiomegaly. No significant pericardial effusion. No significant coronary artery calcifications. Bones/joints: Degenerative changes in the spine. No acute fracture. No dislocation. Soft tissues: Unremarkable. Vasculature: Atherosclerotic disease. No thoracic aortic aneurysm. Lymph nodes: Unremarkable. No enlarged lymph nodes. Stomach and bowel: Gastric sleeve changes. Intraperitoneal space: Partially visualized free air in the abdomen. Consider correlation with prior operative history. IMPRESSION: 1. Limited examination in the absence of contrast. 2. Partially visualized free air in the abdomen. Consider correlation with prior operative history. 3. Limited examination given lack of clinical history and posttreatment history. Recommend continued attention on follow-up imaging as dictated per patient's primary malignancy. Communications: Verify Receipt Electronically signed by: Zeferino Salcedo MD 02/07/24 03:40 AM Chest X-Ray 02/06/24 17:39 XR chest 1V portable CLINICAL HISTORY: sob TECHNIQUE: Single frontal radiograph of the chest was obtained. Comparison: Comparison is made to chest radiograph 01/26/2024 FINDINGS: No lines and tubes are seen. Cardiomegaly is noted. Lungs are underinflated but clear. No evidence of pleural effusion or pneumothorax. IMPRESSION: No acute chest disease. ACT 112: Negative or not required by law. Electronically signed by: Homero Foster M.D. 02/06/2024 6:08 PM
[2024-02-09 12:38] LABS: Hematocrit (blood only) 26.2 % (37.0-47.0); Hemoglobin 8.3 g/dl (12.0-16.0)
[2024-02-09] MEDS: ACETAMINOPHEN 325 MG TAB PO PRN (19:35)
[2024-02-09 21:45] LABS: Cdiff Toxin B Gene (2yr or >) Positive Cdiff Gene (Neg)
[2024-02-09 21:46] LABS: Cdiff Antigen Positive
[2024-02-09 21:47] LABS: Cdiff Toxin A+B Positive Cdiff Toxin (Negative)
--- NOTE | 2024-02-09 22:08 | Communication Note ---
Date of Service: February 09, 2024 Patient noted to be febrile and with loose ostomy output. Repeat stool C. difficile toxin positive AP C. difficile diarrhea Oral vancomycin course
[2024-02-09] MEDS: CHERRY SYRUP 5 ML UDP PO ONE (22:42)
[2024-02-09] MEDS: VANCOMYCIN HCL 125 MG/2.5ML SOLN PO ONE (22:42)
[2024-02-10 05:58] LABS: Basophils # (auto) 0.04 K/uL (0.00-0.20); Basophils % (auto) 0.4 %; Eosinophils # (auto) 0.31 K/uL (0.00-0.50); Eosinophils % (auto) 3.5 %; Hematocrit (blood only) 26.9 % (37.0-47.0); Hemoglobin 8.5 g/dl (12.0-16.0); Immature Granulocytes # (auto) 0.31 K/uL (0.01-0.20); Immature Granulocytes % (auto) 3.5 %; Lymphocytes # (auto) 2.19 K/uL (1.20-3.40); Lymphocytes % (auto) 24.5 %; Mean Corpuscular Hemoglobin 24.8 pg (25.0-34.0); Mean Corpuscular Hgb Conc 31.6 g/dL (32.0-36.0); Mean Corpuscular Volume 78.4 fL (80.0-100.0); Mean Platelet Volume 9.6 fL (9.4-12.4); Monocytes # (auto) 0.81 K/uL (0.11-0.59); Monocytes % (auto) 9.1 %; Neutrophils # (auto) 5.27 K/uL (1.40-6.50); Platelet Count 289 K/uL (130-400); RDW Coefficient of Variation 17.2 % (11.5-14.5); RDW Standard Deviation 48.5 fL (36.4-46.3); Red Blood Count 3.43 M/uL (4.20-5.40); White Blood Count 8.93 K/ul (4.8-10.8)
[2024-02-10] MEDS: VANCOMYCIN HCL 125 MG/2.5ML SOLN PO SCH (06:00)
[2024-02-10] MEDS ORDERED: CHERRY SYRUP 5 ML UDP PO ONE (06:00)
[2024-02-10] MEDS: CHERRY SYRUP 5 ML UDP PO SCH (06:00)
[2024-02-10 06:25] LABS: Albumin Globulin Ratio 1.1 (0.9-2); BUN Creatinine Ratio 18.8 (10-20); Bilirubin,Total 0.5 mg/dl (0.2-1.0); Calcium 8.1 mg/dl (8.6-10.3); Creatinine Clr Calc Pharmacy 164.9 ml/min; Globulin 2.7 gm/dl (2.5-4.0); Phosphorus 3.9 mg/dl (2.5-4.9); Potassium 3.9 mmol/L (3.5-5.1); Total Protein 5.7 gm/dl (6.0-8.3)
--- NOTE | 2024-02-10 07:43 | Surgery Progress Note ---
<Statement entered by Elizabeth Velasquez DO - 02/11/24 13:37> I saw and examined this patient with the surgical team and I agree with this plan. abx per ID Date of Service February 10, 2024 Assessment & Plan (1) Perforated sigmoid colon: Plan: Patient is s/p laparoscopic abdominal wash out, colon resection and creation of colostomy on 02/03, and revision of colostomy -Ostomy functioning and CHRIS drain serosang. -Tolerating low-fibber diet -Pain manageable/improving at this time -Discussed with patient she will require oncologic appt as an outpatient and [facility] colorectal follow up as well -ID is following for abx guidance given ESBL on intraop cultures, patient receiving IV antibiotics over the weekend however did report shortness of breath and feeling flushed after administration. Will have ID reevaluate antibiotics. Also recommend patient continuing IV antibiotics for a few weeks, will require PICC to be placed. -Wound care consulted for new colostomy teaching. Continue CHRIS drain until <30cc/day -Upon discharge she will need to f/u in our office in 1-2 weeks Admission and Anticipated Discharge Date Admission Date: February 03, 2024 Subjective Patient feeling well overall, states pain has improved and has been able to get OOB. Tolerating low fiber diet without issues of nausea or emesis . Ostomy functioning, stool present in bag. Did have some issues with IV antibiotics over the weekend stating after receiving them she started feeling short of breath and felt flushed. Physical Exam Constitutional: WD/WN, vitals as above Respiratory: normal respiratory effort, lungs clear to auscultation Cardiovascular: RRR, no murmur, no edema Gastrointestinal (Abdomen): Abdomen soft and nondistended, some +TTP over surgical site (expected post op discomfort to palpation ) +Ostomy with liquid brown stool in bag. CHRIS drain with serosang output (150cc noted over last 12 hrs) Results & Data Vital Signs (Past 12 Hours) Vital Signs Temp Pulse Pulse Resp BP BP Pulse Ox 02/10/24 07:30 36.9 C 76 18 124/79 96 02/10/24 07:08 72 02/10/24 03:59 36.8 C 76 20 117/77 94 02/09/24 23:59 37.1 C 81 20 121/83 95 02/09/24 22:59 37 C 85 16 108/71 95 02/09/24 21:58 92 H 02/09/24 20:45 37.6 C H 02/09/24 19:47 38.7 C H 97 H 20 130/86 92 O2 Del Method 02/10/24 07:30 Room Air 02/10/24 07:08 02/10/24 03:59 Room Air 02/09/24 23:59 Room Air 02/09/24 22:59 Room Air 02/09/24 21:58 02/09/24 20:45 02/09/24 19:47 Room Air PG Care Time/CCT Total # of Minutes Spent Total Time Spent with Patient: Total time spent is greater than 50% in coordination of care (as documented) at patient's floor/unit and/or counseling patient: Coding Level of Care Code 85641 Post Operative Follow-Up Diagnoses Perforated sigmoid colon K63.1
--- NOTE | 2024-02-10 11:42 | Hospitalist Progress Note ---
Date of Service February 10, 2024 Assessment & Plan (1) Acute diverticulitis: (2) Gastric bypass status for obesity: (3) Adenocarcinoma of colon: Plan Pt is a 43yoF with PMhx significant for Hx of bypass surgery and chronic diverticulitis presenting with worsening abdominal pain and was found to have diverticulitis with perforation. Later became septic requiring a laparoscopic colon resection, abdominal wash out and creation of a colostomy on 02/03 with exploratory lap revision of colostomy and stoma on 02/05. Sepsis Diverticulitis, Acute on chronic Bowel Perforation Adenocarcinoma of the colon C Diff colitis Pt presenting with known diverticulitis for which treatment had been prescribed but not initiated CT abd/pelvis in the ED noting diverticulitis with concern for perforation General surgery was consulted -s/p laparoscopic colon resection, abdominal wash out and creation of a colostomy on 02/03 -Pt requiring revision on 02/05, after noted anemia requiring transfusion -abdominal Cx 02/03 growing ESBL E.coli and Bacteroides -surgical pathology of intraop samples noting adenocarcinoma of the colon IV Zosyn switched to IV Ertapenem on 02/05 ID consulted for further recs, appreciated. Recommended/stated the following on 02/06: "1. I agree with the primary team on IV ertapenem 1 g daily. 2. Please confirm with the surgical team if there is still concern about some residual intraabdominal infected pockets or persistent perforation, if that's the case, then I would recommend keeping on ertapenem for at least [address] abd/pelvis towards the end of treatment course. If they performed very good and thorough washout of the abdomen, continue IV ertapenem while inpatient and stepdown to oral Bactrim DS twice daily with Augmentin 875/125 BID to complete a course of treatment of 14 days from the date of surgery." Pain Control, antiemetics as needed Continue to monitor 02/09/2024-discussed patient's pain with Dr. Silverman, advised ok to continue to monitor, no repeat CT abdomen pelvis at this time. Advised following up tomorrow. 02/10/2024-pt noting that she became short of breath (unlike her panic attacks) while receiving the IV ertapenem for the past 2 days. Case discussed with both General Surgery and ID. ID recommended stopping ertapenem and starting po Augmentin 875mg BID WITH Bactrim DS for 14 days of treatment from the day of surgery. Advised that treatment for c diff with po vancomycin should continue for 7 days after finishing Augmentin/Bactrim. Adenocarcinoma of the colon Intraop pathology noting adenocarcinoma of the colon General surgery discussed findings with the pt Oncology consult placed, appreciate recs -Case discussed with [facility] Oncologist Dr Angulo on 02/07. Recommended/stated the following: " had a lengthy discussion with the patient and her today she will definitely need adjuvant chemotherapy given that she had perforated colorectal cancer. I will also recommend evaluation by colorectal surgery once she is discharged from the hospital at [facility] for consideration of cytoreductive surgery and HIPEC. At this point would recommend continuation of antibiotics for her sepsis and peritonitis. Will recommend outpatient placement of Mediport, institution of palliative systemic chemotherapy" Oncology followup after discharge Acute on Chronic Anemia Acute Blood Loss anemia H/H slowly downtrending intially Hgb baseline 8-9 range Hgb 6.7 on 02/04 requiring transfusion of 1UpRBC Transfuse prn for hgb<7 Continue to monitor Currently stable Panic Attacks Anxiety Pt notes a Hx of panic attacks States she typically gets them in the hospital On 02/05, pt with HR in 130s, BP elevated, requiring 4L of oxygen and uncontrollable shaking after being advised of preliminary read of pathology as possible malignancy Worked up further with EKG, chest XR, VBG, CBC, BMP, all stable or unremarkable IV Ativan 1mg given with noted improvement in symptoms Psychiatry consulted, appreciate recs. Recommended/stated the following: -escitalopram 5mg daily, can increase to 10mg in 3-5 days based on tolerability (lack of GI symptoms, lack of WINSTON, etc) -Start mirtazapine 15mg HS -Can continue to use ativan 0.5mg IV or po q6h prn for panic attacks. -On discharge could consider script for ativan 0.5mg daily prn with goal being for short-term use for severe panic attacks. -Can also use Vistaril 25mg po TID prn for anxiety Continue to monitor Diarrhea stool for C. difficile and culture Positive for c diff gene only originally However repeat overnight on 02/08, now positive for toxin Started on po vancomycin Appreciate further ID recs in setting of above Hypophosphatemia Hypomagnesemia Hypokalemia Replete as needed Diet: advancing diet as tolerated DVT prophylaxis: SCDs in setting of worsening anemia Dispo: home once medically stable, pt/ot rec home with HH Admission and Anticipated Discharge Date Admission Date: February 03, 2024 Subjective Patient was seen in the a.m. Resting comfortably in bed The day before noted that she became short of breath (unlike her panic attacks) while receiving the IV or ertapenem. Notes that this is the second time that this is happened and she required oxygen. Notes the episodes only last for a few minutes. But she does not like the way it feels to not be able to take a deep breath. States she has been up and walking today. States she is able to walk after taking her Pain medications overnight tested positive for C. difficile with toxin. Review of Systems Review of Systems: All systems reviewed & are unremarkable except as noted in Subjective Physical Exam Physical Exam: General: Alert, oriented. Psych: Appropriate mood and affect at the time of exam Neuro: difficulty with movements in the bed HEENT: NC/AT CV: RRR Resp: no increased effort of breathing Abdomen: Soft, ostomy bag with noted stool output and tenderness around it Extremities: No edema in lower extremities bilaterally. Results & Data Results & Data Vital Signs (Past 12 Hours) Vital Signs Temp Pulse Pulse Resp BP Pulse Ox O2 Del Method 02/10/24 07:37 Room Air 02/10/24 07:30 36.9 C 76 18 124/79 96 Room Air 02/10/24 07:08 72 02/10/24 03:59 36.8 C 76 20 117/77 94 Room Air 02/09/24 23:59 37.1 C 81 20 121/83 95 Room Air
[2024-02-10] MEDS: oxyCODONE HCL IR 5 MG TAB (IMMEDIATE RELEASE) PO PRN (14:06)
[2024-02-10] MEDS: SULFAMETHOXAZOLE/TRIMETHOPRIM DS 800/160MG TAB PO SCH (16:37)
[2024-02-10] MEDS: AMOXICILLIN/CLAVULANATE 875 MG TAB PO SCH (16:38)
[2024-02-11 06:23] LABS: Basophils # (auto) 0.06 K/uL (0.00-0.20); Basophils % (auto) 0.6 %; Eosinophils # (auto) 0.37 K/uL (0.00-0.50); Eosinophils % (auto) 3.9 %; Hematocrit (blood only) 29.4 % (37.0-47.0); Hemoglobin 9.1 g/dl (12.0-16.0); Immature Granulocytes # (auto) 0.34 K/uL (0.01-0.20); Immature Granulocytes % (auto) 3.6 %; Lymphocytes # (auto) 2.24 K/uL (1.20-3.40); Lymphocytes % (auto) 23.9 %; Mean Corpuscular Hemoglobin 24.2 pg (25.0-34.0); Mean Corpuscular Volume 78.2 fL (80.0-100.0); Mean Platelet Volume 9.4 fL (9.4-12.4); Monocytes # (auto) 1.04 K/uL (0.11-0.59); Monocytes % (auto) 11.1 %; Neutrophils # (auto) 5.34 K/uL (1.40-6.50); Neutrophils % (auto) 56.9 %; Platelet Count 366 K/uL (130-400); RDW Coefficient of Variation 17.4 % (11.5-14.5); RDW Standard Deviation 49.1 fL (36.4-46.3); Red Blood Count 3.76 M/uL (4.20-5.40); White Blood Count 9.39 K/ul (4.8-10.8)
[2024-02-11 06:51] LABS: Albumin Level 3.2 gm/dl (3.4-5.0); BUN Creatinine Ratio 12.7 (10-20); Bilirubin,Total 0.5 mg/dl (0.2-1.0); Calcium 8.5 mg/dl (8.6-10.3); Creatinine Clr Calc Pharmacy 125.6 ml/min; Globulin 3.1 gm/dl (2.5-4.0); Magnesium 2.1 mg/dl (1.7-2.4); Phosphorus 3.4 mg/dl (2.5-4.9); Potassium 3.9 mmol/L (3.5-5.1); Total Protein 6.3 gm/dl (6.0-8.3)
--- NOTE | 2024-02-11 09:02 | Surgery Progress Note ---
Date of Service February 11, 2024 Assessment & Plan (1) Perforated sigmoid colon: Plan: Patient is s/p laparoscopic abdominal wash out, colon resection and creation of colostomy on 02/03, and revision of colostomy VSS, wbc wnl, continue antibiotics per ID recs CHRIS drain serous fluid , 35ml /12hr Tolerating low-fiber diet no n.v ostomy with liquid brown stool Wound care consulted for new colostomy teaching Upon discharge she will need to f/u in our office in 1-2 weeks f/u o/p with surgical oncology per their recs. Admission and Anticipated Discharge Date Admission Date: February 03, 2024 Subjective pt denies N/V liquid stool in ostomy reports urinary urgency , when she feels she has to go to [facility] must get to toilet or feels will not be able to hold urine in Review of Systems Gastrointestinal: + abdominal pain; no nausea and no vomit ing Genitourinary: + urinary urgency Psychiatric: no confusion Physical Exam Constitutional: cooperative and comfortable Respiratory: normal respiratory effort; no respiratory distress Cardiovascular: Rate/Rhythm: regular rate Gastrointestinal (Abdomen): Inspection/Auscultation: + abdominal surgical incision and + abdominal surgical drain present Psychiatric: Orientation: alert and oriented x 3 Results & Data Vital Signs (Past 12 Hours) Vital Signs Temp Pulse Pulse Resp BP Pulse Ox O2 Del Method 02/11/24 07:41 98.2 F 79 16 107/76 95 Room Air 02/11/24 07:04 89 02/11/24 03:11 98.1 F 83 16 112/75 94 Room Air 02/10/24 22:41 99.0 F 87 18 117/81 93 Room Air 02/10/24 21:50 94 H Results CBC w Diff Results: RBC 3.76 M/uL (4.20-5.40) L 02/11/24 WBC 9.39 K/ul (4.8-10.8) 02/11/24 Hgb 9.1 g/dl (12.0-16.0) L 02/11/24 Hct 29.4 % (37.0-47.0) L 02/11/24 MCV 78.2 fL (80.0-100.0) L 02/11/24 MCH 24.2 pg (25.0-34.0) L 02/11/24 MCHC 31.0 g/dL (32.0-36.0) L 02/11/24 RDW Standard Deviation 49.1 fL (36.4-46.3) H 02/11/24 RDW Coefficient of Variation 17.4 % (11.5-14.5) H 02/11/24 Plt Count 366 K/uL (130-400) 02/11/24 MPV 9.4 fL (9.4-12.4) 02/11/24 Nucleated Red Blood Cells % (auto) 0.2 % 02/07 Nucleated RBC Absolute Count (auto) 0.02 K/uL (0.00-0.12) 1 04/09/23 Neutrophils (%) (Auto) 56.9 % 02/11/24 Lymphocytes (%) (Auto) 23.9 % 02/11/24 Monocytes # (Auto) 1.04 K/uL (0.11-0.59) H 02/11/24 Eosinophils # (Auto) 0.37 K/uL (0.00-0.50) 02/11/24 Immature Granulocyte % (Auto) 3.6 % 02/11/24 Neutrophils # (Auto) 5.34 K/uL (1.40-6.50) 02/11/24 Lymphocytes # (Auto) 2.24 K/uL (1.20-3.40) 02/11/24 Monocytes # (Auto) 1.04 K/uL (0.11-0.59) H 02/11/24 Eosinophils # (Auto) 0.37 K/uL (0.00-0.50) 02/11/24 Basophils # (Auto) 0.06 K/uL (0.00-0.20) 02/11/24 Immature Granulocyte # (Auto) 0.34 K/uL (0.01-0.20) H 02/10 Polychromasia 1+ 02/09/24 Echinocytes 1+ 02/06/24 Ovalocytes 1+ 02/06/24 PG Care Time/CCT Total # of Minutes Spent Total Time Spent with Patient: Total time spent is greater than 50% in coordination of care (as documented) at patient's floor/unit and/or counseling patient: Coding Level of Care Code 02917 Post Operative Follow-Up Diagnoses Perforated sigmoid colon K63.1
--- NOTE | 2024-02-11 11:38 | Hospitalist Progress Note ---
Date of Service February 11, 2024 Assessment & Plan (1) Acute diverticulitis: (2) Gastric bypass status for obesity: (3) Adenocarcinoma of colon: Plan Pt is a 43yoF with PMhx significant for Hx of bypass surgery and chronic diverticulitis presenting with worsening abdominal pain and was found to have diverticulitis with perforation. Later became septic requiring a laparoscopic colon resection, abdominal wash out and creation of a colostomy on 02/03 with exploratory lap revision of colostomy and stoma on 02/05. Sepsis Diverticulitis, Acute on chronic Bowel Perforation Adenocarcinoma of the colon C Diff colitis Pt presenting with known diverticulitis for which treatment had been prescribed but not initiated CT abd/pelvis in the ED noting diverticulitis with concern for perforation General surgery was consulted -s/p laparoscopic colon resection, abdominal wash out and creation of a colostomy on 02/03 -Pt requiring revision on 02/05, after noted anemia requiring transfusion -abdominal Cx 02/03 growing ESBL E.coli and Bacteroides -surgical pathology of intraop samples noting adenocarcinoma of the colon IV Zosyn switched to IV Ertapenem on 02/05 ID consulted for further recs, appreciated. Recommended/stated the following on 02/06: "1. I agree with the primary team on IV ertapenem 1 g daily. 2. Please confirm with the surgical team if there is still concern about some residual intraabdominal infected pockets or persistent perforation, if that's the case, then I would recommend keeping on ertapenem for at least [address] abd/pelvis towards the end of treatment course. If they performed very good and thorough washout of the abdomen, continue IV ertapenem while inpatient and stepdown to oral Bactrim DS twice daily with Augmentin 875/125 BID to complete a course of treatment of 14 days from the date of surgery." Pain Control, antiemetics as needed Continue to monitor 02/09/2024-discussed patient's pain with Dr. Silverman, advised ok to continue to monitor, no repeat CT abdomen pelvis at this time. Advised following up tomorrow. 02/10/2024-pt noting that she became short of breath (unlike her panic attacks) while receiving the IV ertapenem for the past 2 days. Case discussed with both General Surgery and ID. ID recommended stopping ertapenem and starting po Augmentin 875mg BID WITH Bactrim DS for 14 days of treatment from the day of surgery. Advised that treatment for c diff with po vancomycin should continue for 7 days after finishing Augmentin/Bactrim. 02/11/2024-patient states she has been up and moving. Asking for 1 more day before discharge. Would like to see the ostomy nurse once more for repeat teaching. Patient encouraged to ambulate as tolerated today as well. Adenocarcinoma of the colon Intraop pathology noting adenocarcinoma of the colon General surgery discussed findings with the pt Oncology consult placed, appreciate recs -Case discussed with [facility] Oncologist Dr Angulo on 02/07. Recommended/stated the following: " had a lengthy discussion with the patient and her today she will definitely need adjuvant chemotherapy given that she had perforated colorectal cancer. I will also recommend evaluation by colorectal surgery once she is discharged from the hospital at [facility] for consideration of cytoreductive surgery and HIPEC. At this point would recommend continuation of antibiotics for her sepsis and peritonitis. Will recommend outpatient placement of Mediport, institution of palliative systemic chemotherapy" Oncology followup after discharge Acute on Chronic Anemia Acute Blood Loss anemia H/H slowly downtrending intially Hgb baseline 8-9 range Hgb 6.7 on 02/04 requiring transfusion of 1UpRBC Transfuse prn for hgb<7 Continue to monitor Currently stable Panic Attacks Anxiety Pt notes a Hx of panic attacks States she typically gets them in the hospital On 02/05, pt with HR in 130s, BP elevated, requiring 4L of oxygen and uncontrollable shaking after being advised of preliminary read of pathology as possible malignancy Worked up further with EKG, chest XR, VBG, CBC, BMP, all stable or unremarkable IV Ativan 1mg given with noted improvement in symptoms Psychiatry consulted, appreciate recs. Recommended/stated the following: -escitalopram 5mg daily, can increase to 10mg in 3-5 days based on tolerability (lack of GI symptoms, lack of WINSTON, etc) -Start mirtazapine 15mg HS -Can continue to use ativan 0.5mg IV or po q6h prn for panic attacks. -On discharge could consider script for ativan 0.5mg daily prn with goal being for short-term use for severe panic attacks. -Can also use Vistaril 25mg po TID prn for anxiety Continue to monitor 02/11/2024-Patient declining further titration of Lexapro at this time. In agreement, given her current GI issues with C. difficile. Diarrhea stool for C. difficile and culture Positive for c diff gene only originally However repeat overnight on 02/08, now positive for toxin Started on po vancomycin Appreciate further ID recs in setting of above Hypophosphatemia Hypomagnesemia Hypokalemia Replete as needed Diet: advancing diet as tolerated DVT prophylaxis: SCDs in setting of worsening anemia Dispo: home once medically stable, pt/ot rec home with HH Admission and Anticipated Discharge Date Admission Date: February 03, 2024 Subjective patient was seen in the AM. States that she would like to see the wound and ostomy nurse once more to get further teaching on how to care for the ostomy. Notes no further reactions to the oral antibiotics. Notes she has been tolerating those. States the Lexapro 5 mg has been helping. Declines further titration of that today. Denies any further episodes of panic attacks. Review of Systems Review of Systems: All systems reviewed & are unremarkable except as noted in Subjective Physical Exam Physical Exam: General: Alert, oriented. Psych: Appropriate mood and affect at the time of exam Neuro: difficulty with movements in the bed HEENT: NC/AT CV: RRR Resp: no increased effort of breathing Abdomen: Soft, ostomy bag with noted stool output Extremities: No edema in lower extremities bilaterally. Results & Data Results & Data Vital Signs (Past 12 Hours) Vital Signs Temp Pulse Pulse Resp BP Pulse Ox O2 Del Method 02/11/24 07:41 36.8 C 79 16 107/76 95 Room Air 02/11/24 07:04 89 02/11/24 03:11 36.7 C 83 16 112/75 94 Room Air
--- NOTE | 2024-02-12 10:22 | Surgery Progress Note ---
Date of Service February 12, 2024 Assessment & Plan (1) Perforated sigmoid colon: Plan: Patient is s/p laparoscopic abdominal wash out, colon resection and creation of colostomy on 02/03, and revision of colostomy Up walking in her VSS, wbc wnl CHRIS drain nursing to remove today Tolerating low-fiber diet no n.v Wound care consulted for new colostomy teaching hopeful will see today Possible discharge today ? she will need to f/u in our office in 1-2 weeks f/u o/p with surgical oncology per their recs continue antibiotics per ID recs Admission and Anticipated Discharge Date Admission Date: February 03, 2024 Subjective small decreases in abdominal pain daily no n/v Review of Systems Gastrointestinal: + abdominal pain; no nausea and no vomit ing Musculoskeletal: no muscle weakness Psychiatric: no confusion Physical Exam Constitutional: cooperative and comfortable; no acute distress Respiratory: normal respiratory effort; no respiratory distress Cardiovascular: Rate/Rhythm: regular rate Psychiatric: Orientation: alert and oriented x 3 Results & Data Vital Signs (Past 12 Hours) Vital Signs Temp Pulse Pulse Resp BP BP Pulse Ox 02/12/24 07:41 98.6 F 73 20 108/74 95 02/12/24 07:16 72 02/12/24 03:04 98.1 F 72 16 107/74 95 02/11/24 23:02 90 02/11/24 22:24 97.5 F L 91 H 16 106/72 94 O2 Del Method 02/12/24 07:41 Room Air 02/12/24 07:16 02/12/24 03:04 Room Air 02/11/24 23:02 02/11/24 22:24 Room Air PG Care Time/CCT Total # of Minutes Spent Total Time Spent with Patient: Total time spent is greater than 50% in coordination of care (as documented) at patient's floor/unit and/or counseling patient: Coding Level of Care Code 29759 Post Operative Follow-Up Diagnoses Perforated sigmoid colon K63.1
--- NOTE | 2024-02-12 16:38 | Hospitalist Progress Note ---
Date of Service February 12, 2024 Assessment & Plan (1) Acute diverticulitis: (2) Gastric bypass status for obesity: (3) Adenocarcinoma of colon: Plan Ms. King is a 43yoF with PMhx significant for Hx of bypass surgery and chronic diverticulitis presenting with worsening abdominal pain and was found to have diverticulitis with perforation. Later became septic requiring a laparoscopic colon resection, abdominal wash out and creation of a colostomy on 02/03 with exploratory lap revision of colostomy and stoma on 02/05. Patient's course complicated by c diff and adenocarcinoma on pathology Patient continues on PO abx at this time until 02/19, then continue vancomycin p o until 02/26 #Sepsis 2/2 perforated diverticulitis s/p colonic resection and washout #C Diff colitis Pt presenting with known diverticulitis for which treatment had been prescribed but not initiated CT abd/pelvis in the ED noting diverticulitis with concern for perforation General surgery was consulted -s/p laparoscopic colon resection, abdominal wash out and creation of a colostomy on 02/03 -Pt requiring revision on 02/05, after noted anemia requiring transfusion -abdominal Cx 02/03 growing ESBL E.coli and Bacteroides -surgical pathology of intraop samples noting adenocarcinoma of the colon IV Zosyn switched to IV Ertapenem on 02/05-02/09 ID consulted for further recs: Continue Augmentin 875mg BID WITH Bactrim DS for 14 days of treatment from the day of surgery (02/19). Advised that treatment for c diff with po vancomycin should continue for 7 days after finishing Augmentin/Bactrim (02/26) #Adenocarcinoma of the colon Intraop pathology noting adenocarcinoma of the colon General surgery discussed findings with the pt Oncology consult placed, appreciate recs -Case discussed with [facility] Oncologist Dr Angulo on 02/07. Recommended/stated the following: " had a lengthy discussion with the patient and her today she will definitely need adjuvant chemotherapy given that she had perforated colorectal cancer. I will also recommend evaluation by colorectal surgery once she is discharged from the hospital at [facility] for consideration of cytoreductive surgery and HIPEC. At this point would recommend continuation of antibiotics for her sepsis and peritonitis. Will recommend outpatient placement of Mediport, institution of palliative systemic chemotherapy" Oncology followup after discharge #Acute on Chronic Anemia #Acute Blood Loss anemia H/H slowly downtrending intially Hgb baseline 8-9 range Hgb 6.7 on 02/04 requiring transfusion of 1UpRBC Transfuse prn for hgb<7 Continue to monitor Currently stable #Panic Attacks #Anxiety Pt notes a Hx of panic attacks States she typically gets them in the hospital On 02/05, pt with HR in 130s, BP elevated, requiring 4L of oxygen and uncontrollable shaking after being advised of preliminary read of pathology as possible malignancy Worked up further with EKG, chest XR, VBG, CBC, BMP, all stable or unremarkable IV Ativan 1mg given with noted improvement in symptoms Psychiatry consulted, appreciate recs. Recommended/stated the following: -escitalopram 5mg daily, can increase to 10mg in 3-5 days based on tolerability (lack of GI symptoms, lack of WINSTON, etc) -Mirtazepine causing hallucinations, discontinued -Can continue to use ativan 0.5mg IV or po q6h prn for panic attacks. -On discharge could consider script for ativan 0.5mg daily prn with goal being for short-term use for severe panic attacks. -Can also use Vistaril 25mg po TID prn for anxiety #Diarrhea stool for C. difficile +gene/toxin However repeat overnight on 02/08, now positive for toxin Started on po vancomycin, continue through 02/26 #Hypophosphatemia #Hypomagnesemia #Hypokalemia Replete as needed Diet: advancing diet as tolerated DVT prophylaxis: SCDs in setting of worsening anemia Dispo: home once medically stable, pt/ot rec home with Admission and Anticipated Discharge Date Admission Date: February 03, 2024 Subjective NAEO Patient reports feeling exhausted after mobilizing and awaiting ostomy teaching available to tack picker tomorrow at 10am Physical Exam Constitutional: WD/WN, vitals as above Respiratory: normal respiratory effort, lungs clear to auscultation Cardiovascular: RRR, no murmur, no edema Gastrointestinal (Abdomen): pink mucosa, liquid output in bag Results & Data Results & Data Vital Signs (Past 12 Hours) Vital Signs Temp Pulse Pulse Resp BP BP Pulse Ox 02/12/24 15:49 36.9 C 81 18 99/74 L 94 02/12/24 14:24 82 02/12/24 07:41 37.0 C 73 20 108/74 95 02/12/24 07:16 72 O2 Del Method 02/12/24 15:49 Room Air 02/12/24 14:24 02/12/24 07:41 Room Air 02/12/24 07:16 Medications Administered Home Medications Medication Instructions Recorded Confirmed Last Taken oxycodone 5 mg tablet 5 - 10 mg (1 - 2 x 5 mg) PO 02/07/24 Unknown .[id number] PRN pain, for initial therapy, max 6 tabs per day #15 tabs Active Medications Generic Name Dose Route Start Last Admin Trade Name Freq PRN Reason Stop Dose Admin Acetaminophen 650 mg 02/09/24 19:16 02/09/24 19:35 Acetaminophen 325 Mg Tab PO 03/10/24 19:15 650 mg QID PRN Administration pain/fever Amoxicillin/Clavulanate Potassium 1 tab 02/10/24 15:30 02/12/24 07:58 Amoxicillin/Clavulanate 875 Mg Tab PO 02/20/24 15:29 1 tab BIDM LORETTA Administration Protocol Santillan Syrup 5 ml 02/10/24 06:00 02/12/24 12:07 Santillan Syrup 5 Ml Udp PO 02/20/24 05:59 5 ml Q6H LORETTA Administration Escitalopram Oxalate 5 mg 02/07/24 13:15 02/12/24 07:58 Escitalopram Oxalate 10 Mg Tab PO 03/08/24 13:14 5 mg QAM LORETTA Administration Famotidine 20 mg 02/06/24 21:00 02/12/24 07:58 Famotidine 20 Mg Tab PO 03/07/24 20:59 20 mg BID LORETTA Administration Lorazepam 0.5 mg 02/07/24 05:30 02/12/24 07:57 Lorazepam 2 Mg/1 Ml Vial IV 03/07/24 18:15 0.5 mg Q3H PRN Administration Anxiety/Agitation Mirtazapine 15 mg 02/07/24 21:00 02/11/24 19:55 Mirtazapine Tab 15 Mg Tab PO 03/08/24 20:59 Not Given HS LORETTA Morphine Sulfate 2 mg 02/05/24 10:28 02/08/24 14:03 Morphine Sulfate 2 Mg/Ml Carp IV 02/19/24 10:27 2 mg Q3H PRN Administration Moderate Pain (Scale 4, 5, 6) Ondansetron HCl 4 mg 02/03/24 19:13 02/07/24 16:09 Ondansetron Inj 2 Mg/Ml 2 Ml Vial IV 03/04/24 19:12 4 mg Q6H PRN Administration Nausea And Vomiting Oxycodone HCl 5 mg 02/07/24 09:52 02/12/24 10:45 Oxycodone Hcl Ir 5 Mg Tab (Immediate Release) PO 02/21/24 09:51 5 mg Q4H PRN Administration Moderate Pain (Scale 4, 5, 6) Oxycodone HCl 10 mg 02/07/24 09:52 02/10/24 14:06 Oxycodone Hcl Ir 5 Mg Tab (Immediate Release) PO 02/21/24 09:51 10 mg Q4H PRN Administration Severe Pain (Scale 7, 8, 9,10) Trimethoprim/Sulfamethoxazole 1 tab 02/10/24 16:00 02/12/24 06:15 Sulfamethoxazole/Trimethoprim Ds 800/160mg Tab PO 02/20/24 15:59 1 tab Q12@0600,1800 LORETTA Administration Vancomycin HCl 125 mg 02/10/24 06:00 02/12/24 12:07 Vancomycin Hcl 125 Mg/2.5ml Soln PO 02/20/24 05:59 125 mg Q6H LORETTA Administration Protocol
[2024-02-12 19:39] VITALS: TEMP 98.2
[2024-02-13 07:28] LABS: Hematocrit (blood only) 36.4 % (37.0-47.0); Hemoglobin 10.9 g/dl (12.0-16.0); Mean Corpuscular Hemoglobin 24.1 pg (25.0-34.0); Mean Corpuscular Hgb Conc 29.9 g/dL (32.0-36.0); Mean Corpuscular Volume 80.5 fL (80.0-100.0); Mean Platelet Volume 9.4 fL (9.4-12.4); Platelet Count 559 K/uL (130-400); RDW Coefficient of Variation 17.7 % (11.5-14.5); RDW Standard Deviation 51.1 fL (36.4-46.3); Red Blood Count 4.52 M/uL (4.20-5.40)
[2024-02-13 07:38] VITALS: RESP 18; O2SAT 94
[2024-02-13 07:47] LABS: BUN Creatinine Ratio 17.4 (10-20); Calcium 8.9 mg/dl (8.6-10.3); Creatinine Clr Calc Pharmacy 109.6 ml/min; Potassium 3.9 mmol/L (3.5-5.1)
--- NOTE | 2024-02-13 08:20 | Surgery Progress Note ---
<Statement entered by Elizabeth Velasquez DO - 02/13/24 12:42> I have seen and examined this patient this am with the surgical team and I agree with the plan Date of Service February 13, 2024 Assessment & Plan (1) Adenocarcinoma, colon: Plan: Pt is s/p laparoscopic abdominal wash out, colon resection and creation of colostomy on 02/03, and revision of colostomy WBC 12, Hbg 10.9, Cr 0.6. Vitals stable. no fevers. Ostomy functioning well and is pink/viable. CHRIS drain has been removed yesterday Tolerating low-fiber diet no n/v Wound care reviewed ostomy care with patient and she changed the bag herself this AM Continue course of abx as outlined by ID. we are ok with pt discharging with follow up in about 2 weeks time with repeat blood work Oncology has been in this AM and said their office will call pt with an outpatient appt and will work on referral with a surgical oncologist at [facility] Our office will also call pt with an appt; will discuss insertion of port at outpt follow up (2) Status post exploratory laparotomy: Admission and Anticipated Discharge Date Admission Date: February 03, 2024 Subjective Patient feeling okay .Tolerating food so nausea/vomiting, appetite slowly improving. She reports fatigue, changed her back for the first time this AM. Did sleep well last night. No fevers/chills. Physical Exam Physical Exam: awake/alert Respiratory: normal respiratory effort Gastrointestinal (Abdomen): Inspection/Auscultation: abdomen not distended Percussion/Palpation: abdomen soft incisions c/d/i, no signs of infection, + ostomy output stool is becoming more formed. ostomy pink and viable Results & Data Vital Signs (Past 12 Hours) Vital Signs Temp Pulse Pulse Resp BP BP Pulse Ox 02/13/24 07:38 98.2 F 83 18 105/72 94 02/13/24 07:00 113 H 02/13/24 05:57 79 115/80 02/13/24 04:09 98.2 F 79 16 95/69 L 95 02/12/24 23:15 98.2 F 78 16 93/66 L 96 02/12/24 21:50 89 O2 Del Method 02/13/24 07:38 Room Air 02/13/24 07:00 02/13/24 05:57 02/13/24 04:09 Room Air 02/12/24 23:15 Room Air 02/12/24 21:50 PG Care Time/CCT Total # of Minutes Spent Total Time Spent with Patient: Total time spent is greater than 50% in coordination of care (as documented) at patient's floor/unit and/or counseling patient: Coding Level of Care Code 84359 Post Operative Follow-Up Diagnoses Adenocarcinoma, colon C18.9 Status post exploratory laparotomy Z98.890
--- NOTE | 2024-02-13 09:19 | Discharge Summary ---
Discharge Summary Date of Service February 13, 2024 Principal Dx & Hospital Course #1 = Principal Diagnosis (1) Acute diverticulitis: (2) Gastric bypass status for obesity: (3) Adenocarcinoma of colon: Plan Ms. King is a 43yoF with PMhx significant for Hx of bypass surgery and chronic diverticulitis presenting with worsening abdominal pain and was found to have diverticulitis with perforation. Later became septic requiring a laparoscopic colon resection, abdominal wash out and creation of a colostomy on 02/03 with exploratory lap revision of colostomy and stoma on 02/05. Cultures with esble and bacteriodes. Patient's course complicated by c diff and adenocarcinoma on pathology. Heme/Onc evaluated patient with recommendations for likely OP CRS eval at [facility] to discuss advanced measures, as well as OP onc follow up. Patient continues on PO abx at this time until 02/19, then continue vancomycin po until 02/26. Patient also with noted severe anxiety and discharged with ativan prn, as well as lexapro. On day of discharge, patient eating well, stooling appropriately through ostomy, and ambulating without difficulty. #Sepsis 2/2 perforated diverticulitis s/p colonic resection and washout #C Diff colitis Pt presenting with known diverticulitis for which treatment had been prescribed but not initiated CT abd/pelvis in the ED noting diverticulitis with concern for perforation General surgery was consulted -s/p laparoscopic colon resection, abdominal wash out and creation of a colostomy on 02/03 -Pt requiring revision on 02/05, after noted anemia requiring transfusion -abdominal Cx 02/03 growing ESBL E.coli and Bacteroides -surgical pathology of intraop samples noting adenocarcinoma of the colon IV Zosyn switched to IV Ertapenem on 02/05-02/09 ID consulted for further recs: Continue Augmentin 875mg BID WITH Bactrim DS for 14 days of treatment from the day of surgery (02/19). Advised that treatment for c diff with po vancomycin should continue for 7 days after finishing Augmentin/Bactrim (02/26) #Adenocarcinoma of the colon Intraop pathology noting adenocarcinoma of the colon General surgery discussed findings with the pt Oncology consult placed, appreciate recs -Case discussed with [facility] Oncologist Dr Angulo on 02/07. Recommended/stated the following: " had a lengthy discussion with the patient and her today she will definitely need adjuvant chemotherapy given that she had perforated colorectal cancer. I will also recommend evaluation by colorectal surgery once she is discharged from the hospital at [facility] for consideration of cytoreductive surgery and HIPEC. At this point would recommend continuation of antibiotics for her sepsis and peritonitis. Will recommend outpatient placement of Mediport, institution of palliative systemic chemotherapy" Oncology followup after discharge #Acute on Chronic Anemia #Acute Blood Loss anemia H/H slowly downtrending intially Hgb baseline 8-9 range Hgb 6.7 on 02/04 requiring transfusion of 1UpRBC Currently stable #Panic Attacks #Anxiety Pt notes a Hx of panic attacks States she typically gets them in the hospital On 02/05, pt with HR in 130s, BP elevated, requiring 4L of oxygen and uncontrollable shaking after being advised of preliminary read of pathology as possible malignancy Worked up further with EKG, chest XR, VBG, CBC, BMP, all stable or unremarkable IV Ativan 1mg given with noted improvement in symptoms Psychiatry consulted, appreciate recs. Recommended/stated the following: -escitalopram 5mg daily, can increase to 10mg in 3-5 days based on tolerability (lack of GI symptoms, lack of WINSTON, etc), patient declined advancement at this time -Mirtazapine causing hallucinations, discontinued -Can continue to use ativan 0.5mg IV or po q6h prn for panic attacks. -On discharge could consider script for ativan 0.5mg daily prn with goal being for short-term use for severe panic attacks. #Diarrhea stool for C. difficile +gene/toxin However repeat overnight on 02/08, now positive for toxin Started on po vancomycin, continue through 02/26 #Hypophosphatemia #Hypomagnesemia #Hypokalemia Replete as needed Notes For Next Care Provider -CRS referral Medication Changes From Visit Augmentin BID through 02/19 Bactrim BID through 02/19 Vancomycin po through 02/26 Ativan 0.5mg bid prn Admission HPI Per Admitting Provider She is a 43-year-old female significant past medical history of gastric bypass surgery years ago and does not take any regular medications apparently has been complaining of abdominal pain started around and above the umbilicus 2 weeks ago. The pain was associated with nausea but no vomiting but she was having diarrhea occasionally for the last 2 weeks. The pain was increasing and she went to do [facility] [place] facility and has had a CAT scan of the abdomen and pelvis and following that she was sent home without giving any antibiotic and was told to keep her appointment with her outpatient general surgery for possible diverticulitis. His condition of pain increased this afternoon associated with dizziness and near fainting and also profuse sweating. He denies any abdominal distention or any shortness of breath associated with it and did not have any temperature. Denies any problem with urination. She was noted to be afebrile but tachycardic at 126 in the emergency room her wh ite count is normal but the report of the CAT scan that was done and was showed diverticulitis involving the colon with phlegmonous change. She was started with intravenous antibiotic with Zosyn surgery was consulted and she was admitted to [facility] telemetry unit with condition of care. Admission Exam Per Admitting Provider Constitutional: well developed, well nourished, + ill appearing and + obese Eyes: PERRL, conjunctivae normal, anicteric sclerae ENMT: external ear and nose normal, oropharynx normal Neck: trachea midline, no thyromegaly Respiratory: no respiratory distress Auscultation: lungs clear to auscultation bilaterally Cardiovascular: Rate/Rhythm: regular rate, regular rhythm and + tachycardic Heart Sounds: normal S1 and normal S2; no murmur Gastrointestinal (Abdomen): Inspection/Auscultation: normal bowel sounds; abdomen not distended Percussion/Palpation: + abdomen tender (All over tenderness mostly) and abdomen soft Musculoskeletal: No acute arthritis involving any of the joint Neurologic: normal touch/pain/proprioception and moves all extremities; no focal motor deficits Lymphatic: no cervical or axillary lymphadenopathy Discharge Exam Constitutional WD/WN, vitals as above Respiratory normal respiratory effort, lungs clear to auscultation Cardiovascular RRR, no murmur, no edema Gastrointestinal (Abdomen) ostomy with liquid stool, pink mucosa Updated Medication List Medication Instructions Recorded Confirmed Type oxycodone 5 mg tablet 5 - 10 mg (1 - 2 x 5 mg) PO 02/07/24 Rx .[id number] PRN pain, for initial therapy, max 6 tabs per day #15 tabs amoxicillin 875 mg-potassium 1 tab PO BIDM 6 days #12 tabs 02/13/24 Rx clavulanate 125 mg tablet escitalopram oxalate 10 mg tablet 5 mg (1/2 x 10 mg) PO QAM 30 days 02/13/24 Rx #15 tabs famotidine 20 mg tablet 20 mg PO BID 15 days #30 tabs 02/13/24 Rx lorazepam 0.5 mg tablet (Ativan) 0.5 mg PO BID PRN anxiety #30 tabs 02/13/24 Rx sulfamethoxazole 800 1 tab PO Q12@0600,1800 6 days #12 02/13/24 Rx mg-trimethoprim 160 mg tablet tabs (Bactrim DS) vancomycin 125 mg capsule 125 mg PO QID 14 days #56 caps 02/13/24 Rx Hospital Stay Data Consultations 02/03/24 18:27 ED Decision to Admit Stat 02/03/24 19:20 Consult General Surgery Routine 02/06/24 15:33 Consult Infectious Diseases Routine 02/06/24 17:46 Consult Psychiatry Routine 02/07/24 12:00 Consult Oncology Routine Procedures Performed Operation Date: 02/06/24 07:00 Actual Procedures p Exploratory Laparoscopy Revision of Colostomy and Stoma(Not Applicable) - Elizabeth Velasquez DO Diagnostic Imagining Performed 02/04/24 05:47 CT abd pelvis IV con only Urgent 02/06/24 12:54 CT chest without contrast [CT chest diagnostic wo con] Routine Pending Results Patient Have Any Pending Studies at Discharge: Yes Discharge Instructions Given to Patient (Per Discharging Provider) You underwent bowel resection on 02/05 and found to have adenocarcinoma of the colon as well as C. difficile colitis. You were started on a course of antibiotics: -Augmentin 1 tab two times a day, your next dose is this evening -Bactrim 1 tab two times a day, you next dose is this evening -Vancomycin 1 tab every 6 hours (4 times a day) until course complete You were started on Lexapro 5mg at bedtime. This medication has room to be increased if needed for mood/anxiety in the future. Discuss with your pcp. You were also given Ativan 0.5mg up to 2 times a day for panic attacks. Please Call Dr. Land's office for an appointment. Dr. Land will refer you to a [facility] oncologist at [facility] Your appointment is on 02/16 with your PCP. Please discuss a referral to Colorectal Surgeon to discuss other options for adenocarcinoma (such as cytoreductive surgery). SPECIAL CARE INSTRUCTIONS: care for your ostomy as you have been shown * You may shower . NO soaking in pools or baths for 2 weeks Cover you surgical drain site with dry gauze and medical tape and change daily and as needed until the site has scabbed over and is no longer leaking fluid. You have skin glue over your incisions called dermabond. you may shower with this on. It will tend to dissolve and fall off within a couple weeks. Do not pick at the skin glue * No lifting greater than 10lbs. No exercise until cleared by surgeon. Light walking is accepted. * No driving while taking narcotic pain medication * No drinking alcohol while taking narcotic pain medication * May use Tylenol over the counter for pain as tolerated. Do not exceed 3grams of Tylenol per 24 hours * Expect some swelling and bruising. * Diet low fiber Call your doctor if: * Temperature above 101 degrees, nausea/vomiting, fever/chills * Pain not relieved by pain medicine ordered * There is increased drainage or redness from any incision * You have any unanswered questions or concerns [phone]. * The surgery office is working on sending referrals for oncology and colorectal follow up FOLLOW UP VISIT: If not already scheduled, please call the office for a follow-up visit. Office Total Time Total Time Spent Total Time Spent (In Minutes): 45 Home Health Attestation I certify that this patient is under my care and that I, or a physicians lpn medical assistant working with me, had a face to-face encounter that meets the home health [id number] encounter requirements with this patient. The encounter with the patient was in whole, or in part, for the following medical condition, which is the primary reason for home health care (list medical condition): Diverticulitis I certify that, based on my findings, the following services are medically necessary home health services: My clinical findings support the need for the above services because: OT Assess ADL Status and Restore Function w ADLs PT Assessment for Endurance / Balance / Strength PT Eval for Safety and Mobility PT Eval for Safety, Gait Training, Assistive Devices PT Gait and Balance Training, Strengthening and Safety Skilled Nsg Assessment Skilled Nsg Assessment Surgical Incision / Wound Further, I certify that my clinical findings support that this patient is homebound (i.e. absences from home require considerable and taxing effort and are for medical reasons or episcopal services or infrequently or of short duration when for other reasons) because: Transportation Assistance/Unable to Leave Home Unassisted Certification for Home Health Services: Based on the above findings, I certify that this patient is confined to the home and needs intermittent halfway care, physical therapy and/or speech therapy or continues to need occupational therapy. The patient is under my care, and I have initiated the establishment of the plan of care. This patient will be followed by a physician who will periodically review the plan of care.
[2024-02-13 10:34] VITALS: BP 95/69; PULSE 86
== END 2024-02-13 11:20 | disposition home health service (06) | DRG 853 ==
LOC: ED 14:27 → SUATTDRO 19:05 → 2S 19:05 → 2W 02-09 15:56

== ENCOUNTER 2024-02-16 20:58 | Observation (INO) ==
[2024-02-16 22:09] LABS: iSTAT Creatinine 0.7 mg/dl (0.6-1.3); iSTAT Hemoglobin 10.9 g/dl (12.0-16.0); iSTAT Ionized Calcium 1.18 mmol/l (1.12-1.32); iSTAT Potassium 4.1 mmol/L (3.3-5.0)
[2024-02-16 22:15] LABS: Basophils # (auto) 0.06 K/uL (0.00-0.20); Basophils % (auto) 0.7 %; Eosinophils # (auto) 0.12 K/uL (0.00-0.50); Eosinophils % (auto) 1.4 %; Hematocrit (blood only) 32.3 % (37.0-47.0); Hemoglobin 9.8 g/dl (12.0-16.0); Immature Granulocytes # (auto) 0.05 K/uL (0.01-0.20); Immature Granulocytes % (auto) 0.6 %; Lymphocytes % (auto) 24.1 %; Mean Corpuscular Hemoglobin 24.4 pg (25.0-34.0); Mean Corpuscular Hgb Conc 30.3 g/dL (32.0-36.0); Mean Corpuscular Volume 80.3 fL (80.0-100.0); Mean Platelet Volume 9.2 fL (9.4-12.4); Monocytes # (auto) 0.87 K/uL (0.11-0.59); Monocytes % (auto) 10.5 %; Neutrophils # (auto) 5.21 K/uL (1.40-6.50); Neutrophils % (auto) 62.7 %; Platelet Count 436 K/uL (130-400); RDW Coefficient of Variation 17.6 % (11.5-14.5); RDW Standard Deviation 51.3 fL (36.4-46.3); Red Blood Count 4.02 M/uL (4.20-5.40); White Blood Count 8.31 K/ul (4.8-10.8)
[2024-02-16] MEDS: OPTIRAY 320 125ml IV ONE (22:20)
[2024-02-16 22:22] LABS: Albumin Globulin Ratio 1.1 (0.9-2); Albumin Level 3.6 gm/dl (3.4-5.0); BUN Creatinine Ratio 19.4 (10-20); Bilirubin,Total 0.3 mg/dl (0.2-1.0); Calcium 8.7 mg/dl (8.6-10.3); Creatinine Clr Calc Pharmacy 112.8 ml/min; Globulin 3.3 gm/dl (2.5-4.0); Magnesium 1.8 mg/dl (1.7-2.4); Total Protein 6.9 gm/dl (6.0-8.3)
[2024-02-16 22:28] LABS: Troponin I High Sensitivity 2.3 pg/ml (0-14)
--- NOTE | 2024-02-16 23:14 | XRay Report ---
Exam(s): XR CXR 1 VIEW EXAM: XR Chest, 1 View CLINICAL HISTORY: Reason for exam: Chest pain, nonspecific. TECHNIQUE: Frontal view of the chest. COMPARISON: February 06, 2024 FINDINGS: Lungs: Lung volumes are low with bronchovascular crowding in the lung bases. No focal infiltrate or consolidation is seen. Pleural space: Unremarkable. No pneumothorax. Heart: Unremarkable. No cardiomegaly. Mediastinum: Unremarkable. Normal mediastinal contour. Bones/joints: Mild osteophytosis in the mid thoracic spine. No acute fracture. Upper abdomen: There is no pneumoperitoneum under the diaphragm. IMPRESSION: Lung volumes are low with bronchovascular crowding in the lung bases. No focal infiltrate or consolidation is seen. Little changed since previous. Electronically signed by: Rohan Ricci MD 02/16/24 23:13 PM
--- NOTE | 2024-02-16 23:30 | CT Scan Report ---
Exam(s): CTA CHEST IV Amt: OPTIRAY [id number] EXAM: CT Angiography Chest With Intravenous Contrast CLINICAL HISTORY: Reason for exam: Chest Pain, eval for PE. TECHNIQUE: Axial computed tomographic angiography images of the chest with intravenous contrast. CTDI is 28 mGy and DLP is 678 mGy-cm. Automated exposure control was utilized for the study. A dose lowering technique was utilized adhering to the principles of ALARA. MIP reconstructed images were created and reviewed. COMPARISON: No relevant prior studies available. FINDINGS: Pulmonary arteries: The pulmonary arterial tree is well opacified with contrast. There are multiple filling defects seen in the right main pulmonary artery, throughout the right upper, middle, and lower lobe branches as well as the left lower lobe consistent with pulmonary emboli. The clot burden is moderate to high. In the RV/LV ratio is within normal limits measuring 0.86. Aorta: The thoracic aorta is nondilated. There is no aneurysm or dissection. Lungs: Small amount of bibasilar infarct or subsegmental atelectasis. Pleural space: Small left pleural effusion layering posteriorly measuring 9 mm. No pneumothorax. Heart: See above. Bones/joints: Multilevel degenerative changes throughout the spine. No acute fracture or destructive bone lesion is seen. No dislocation. Soft tissues: Unremarkable. Lymph nodes: Unremarkable. No enlarged lymph nodes. Stomach and bowel: Staple line along the stomach from previous gastric sleeve procedure. IMPRESSION: 1. The pulmonary arterial tree is well opacified with contrast. There are multiple filling defects seen in the right main pulmonary artery, throughout the right upper, middle, and lower lobe branches as well as the left lower lobe consistent with pulmonary emboli. The clot burden is moderate to high. The RV/LV ratio is within normal limits measuring 0.86. 2. Small amount of bibasilar infarct or subsegmental atelectasis. Communications: Call Doctor Pulmonary Embolism Electronically signed by: Rohan Ricci MD 02/16/24 23:29 PM
[2024-02-16] MEDS ORDERED: HEPARIN SODIUM/DEXTROSE 25,000 UNITS/500 ML BAG IV SCH (23:45)
[2024-02-16] MEDS ORDERED: HEPARIN SOD (PORCINE) 1000 UNIT/ML IV ONE (23:49)
[2024-02-16 23:52] LABS: INR 1.1 (0.9-1.1); Partial Thromboplastin Ratio 0.9; Partial Thromboplastin Time 25 Seconds (21-31); Prothrombin Time 11.4 Seconds (9.0-12.0)
--- NOTE | 2024-02-16 23:56 | History & Physical Report ---
Date of Service February 16, 2024 Assessment & Plan (1) Pulmonary embolism: Plan: Pulmonary embolism hx colon CA History of LE DVT attributed status post Lovenox Rx recent bowel surgery for perforated diverticulitis ongoing antibiotic Rx C. difficile ongoing vancomycin course, diarrhea symptoms resolved Chronic anemia, history gastric bypass anxiety/mood disorder, stable Admit to medical telemetry IV heparin Hematology consult re: recommendations for long-term anticoagulation given history of malignancy (Patient known to Dr. Angulo.) DVT prophylaxis. IV heparin Full code Text document was generated using [employer] voice recognition software. It may contain grammatical or spelling errors. Kindly contact undersigned for clarification of any documentation item in question. History of Present Illness Chief Complaint: Left leg pain Primary Care Provider: Annie Ch DO History obtained from patient and records. Medical history significant for recent colon cancer diagnosis, recent bowel surgery for perforated diverticulitis ongoing antibiotic Rx, C. difficile ongoing vancomycin course, hx of gastric bypass, history LE DVT attributed to status post Lovenox, anxiety/mood disorder. Recent confinement February 02 to February 13, 2024 for sepsis secondary to perforated diverticulitis status post surgery. Adenocarcinoma on pathology. Patient course complicated by C. difficile. Patient discharged on oral vancomycin course in addition to Augmentin and Bactrim Rx for diverticulitis. Hemoglobin 10 at time of discharge. Patient noted pleuritic right-sided chest pain following discharge from the hospital which he attributed to surgery. No SOB or cough symptoms. Patient experienced achy left leg pain today associated with pleuritic right- sided chest pain following discharge from hospital. Patient worried about blood clot given recent confinement. History left lower extremity DVT attributed to with her second child about 20 years ago for which patient completed Lovenox course. 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 Allergies Allergy/AdvReac Type Severity Reaction Status Date / Time No Known Allergies Allergy Verified 02/06/24 09:13 Home Medications Medication Instructions Recorded Confirmed Type oxycodone 5 mg tablet 5 - 10 mg (1 - 2 x 5 mg) PO 02/07/24 02/16/24 Rx .[id number] PRN pain, for initial therapy, max 6 tabs per day #15 tabs amoxicillin 875 mg-potassium 1 tab PO BIDM 6 days #12 tabs 02/13/24 02/16/24 Rx clavulanate 125 mg tablet escitalopram oxalate 10 mg tablet 5 mg (1/2 x 10 mg) PO QAM 30 days 02/13/24 02/16/24 Rx #15 tabs famotidine 20 mg tablet 20 mg PO BID 15 days #30 tabs 02/13/24 02/16/24 Rx lorazepam 0.5 mg tablet (Ativan) 0.5 mg PO BID PRN anxiety #30 tabs 02/13/24 02/16/24 Rx sulfamethoxazole 800 1 tab PO Q12@0600,1800 6 days #12 02/13/24 02/16/24 Rx mg-trimethoprim 160 mg tablet tabs (Bactrim DS) vancomycin 125 mg capsule 125 mg PO QID 14 days #56 caps 02/13/24 02/16/24 Rx Past Med/Surg History Problem List (Updated 02/17/24 @ 00:15 by Ruthie Higgins PA-C) Pulmonary embolism (Acute) Status post exploratory laparotomy Adenocarcinoma, colon Peritonitis Panic attack due to exceptional stress Adjustment disorder with anxious mood Adenocarcinoma of colon Perforated sigmoid colon Anemia (Acute) Abdominal pain (Acute) Gastric bypass status for obesity Acute diverticulitis (Acute) Medical History (Updated 02/17/24 @ 00:15 by Ruthie Higgins PA-C) Depression with anxiety Surgical History (Updated 02/07/24 @ 14:44 by Zari Mena MD) H/O abdominal surgery (02/05/24) Exploratory Laparoscopy Revision of Colostomy and Stoma(Not Applicable) - Elizabeth Velasquez DO History of H/O gastric sleeve History of colon resection (02/04/24) p Diagnostic Laparoscopy, with a laparoscopic colon resection, Abdominal Wash Out, Creation Colostomy(Not Applicable) - Elizabeth Velasquez DO Extensive lysis of adhesions Social History Smoking Status: Never smoker Hx Alcohol Use: No Hx Substance Use: No Preferred Language: Filipino Communication Ability: Effective Visual Impairment: No Limitations 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 Ecologist Required: No Beliefs That Will Affect Care: None Current Living Situation: Family Feels Safe at Home: Yes Assistive Devices: None Review of Systems Review of Systems: As per HPI, all other systems reviewed and negative Physical Exam Physical Exam: GENERAL: Comfortable, obese, pleasant, no respiratory distress SKIN: Pallor, warm HEENT: Pale palpebral conjunctivae, no ptosis, dry buccal mucosa NECK : Supple, no tenderness CHEST : CTA, no tenderness HEART : RRR, no obvious murmurs ABDOMEN: Some distention, no overt tenderness EXTREMITIES : No LE swelling, no LE tenderness, no other conspicuous deformities noted NEUROLOGIC : Coherent, no facial asymmetry, no other gross focality Results & Data Results & Data Vital Signs (Past 12 Hours) Vital Signs Temp Pulse Resp BP Pulse Ox O2 Del Method 02/16/24 22:06 79 02/16/24 22:04 96 Room Air 02/16/24 21:15 36.5 C 83 16 108/75 97 Room Air Laboratory Results Laboratory Results WBC 8.31 K/ul (4.8-10.8) 02/16/24 21:50 RBC 4.02 M/uL (4.20-5.40) L 02/16/24 21:50 Hgb 9.8 g/dl (12.0-16.0) L 02/16/24 21:50 POC Hgb 10.9 g/dl (12.0-16.0) L 02/16/24 21:57 Hct 32.3 % (37.0-47.0) L 02/16/24 21:50 POC Hct 32 % (37-47) L 02/16/24 21:57 MCV 80.3 fL (80.0-100.0) 02/16/24 21:50 MCH 24.4 pg (25.0-34.0) L 02/16/24 21:50 MCHC 30.3 g/dL (32.0-36.0) L 02/16/24 21:50 RDW Std Deviation 51.3 fL (36.4-46.3) H 02/16/24 21:50 RDW Coeff of Mita 17.6 % (11.5-14.5) H 02/16/24 21:50 Plt Count 436 K/uL (130-400) H 02/16/24 21:50 MPV 9.2 fL (9.4-12.4) L 02/16/24 21:50 Immature Gran % (Auto) 0.6 % 02/16/24 21:50 Neut % (Auto) 62.7 % 02/16/24 21:50 Lymph % (Auto) 24.1 % 02/16/24 21:50 [place] % (Auto) 10.5 % 02/16/24 21:50 Eos % (Auto) 1.4 % 02/16/24 21:50 Baso % (Auto) 0.7 % 02/16/24 21:50 Neut # (Auto) 5.21 K/uL (1.40-6.50) 02/16/24 21:50 Lymph # (Auto) 2.00 K/uL (1.20-3.40) 02/16/24 21:50 [place] # (Auto) 0.87 K/uL (0.11-0.59) H 02/16/24 21:50 Eos # (Auto) 0.12 K/uL (0.00-0.50) 02/16/24 21:50 Baso # (Auto) 0.06 K/uL (0.00-0.20) 02/16/24 21:50 Immature Gran # (Auto) 0.05 K/uL (0.01-0.20) 02/16/24 21:50 PT 11.4 Seconds (9.0-12.0) 02/16/24 21:50 INR 1.1 (0.9-1.1) 02/16/24 21:50 APTT 25 Seconds (21-31) 02/16/24 21:50 PTT Ratio 0.9 02/16/24 21:50 POC Sodium 139 mmol/L (135-144) 02/16/24 21:57 Sodium 137 mmol/L (136-145) 02/16/24 21:50 POC Potassium 4.1 mmol/L (3.3-5.0) 02/16/24 21:57 Potassium 4.0 mmol/L (3.5-5.1) 02/16/24 21:50 POC Chloride 103 mmol/L (101-112) 02/16/24 21:57 Chloride 103 mmol/L (98-107) 02/16/24 21:50 Carbon Dioxide 25 mmol/L (21-32) 02/16/24 21:50 POC Total CO2 23 mmol/L (24-31) L 02/16/24 21:57 Anion Gap 9 (3-11) 02/16/24 21:50 POC Anion Gap 18.0 mmol/L (16-25) 02/16/24 21:57 POC BUN 13 mg/dl (7-18) 02/16/24 21:57 BUN 13 mg/dl (6-23) 02/16/24 21:50 Creatinine 0.67 mg/dl (0.6-1.2) 02/16/24 21:50 POC Creatinine 0.7 mg/dl (0.6-1.3) 02/16/24 21:57 Est Cr Clr Drug Dosing 112.8 ml/min 02/16/24 21:50 eGFR 111.84 02/16/24 21:50 BUN/Creatinine Ratio 19.4 (10-20) 02/16/24 21:50 Glucose 97 mg/dl (70-99(Fasting)) 02/16/24 21:50 POC Glucose (other) 99 mg/dl (70-99) 02/16/24 21:57 Calcium 8.7 mg/dl (8.6-10.3) 02/16/24 21:50 POC Ioniz Calcium [place] 1.18 mmol/l (1.12-1.32) 02/16/24 21:57 Magnesium 1.8 mg/dl (1.7-2.4) 02/16/24 21:50 Total Bilirubin 0.3 mg/dl (0.2-1.0) 02/16/24 21:50 AST 14 U/L (13-39) 02/16/24 21:50 ALT 13 U/L (7-52) 02/16/24 21:50 Alkaline Phosphatase 94 U/L (34-104) 02/16/24 21:50 Total Creatine Kinase 21 U/L (26-192) L 02/16/24 21:50 Troponin I High Sens 2.3 pg/ml (0-14) 02/16/24 21:50 Total Protein 6.9 gm/dl (6.0-8.3) 02/16/24 21:50 Albumin 3.6 gm/dl (3.4-5.0) 02/16/24 21:50 Globulin 3.3 gm/dl (2.5-4.0) 11/10/24 21:50 Albumin/Globulin Ratio 1.1 (0.9-2) 02/16/24 21:50 Lipase 99 U/L (11-82) H 02/16/24 21:50 Impressions Chest CTA 02/16/24 21:30 CR Exam(s): CTA CHEST IV Amt: OPTIRAY [id number] EXAM: CT Angiography Chest With Intravenous Contrast CLINICAL HISTORY: Reason for exam: Chest Pain, eval for PE. TECHNIQUE: Axial computed tomographic angiography images of the chest with intravenous contrast. CTDI is 28 mGy and DLP is 678 mGy-cm. Automated exposure control was utilized for the study. A dose lowering technique was utilized adhering to the principles of ALARA. MIP reconstructed images were created and reviewed. COMPARISON: No relevant prior studies available. FINDINGS: Pulmonary arteries: The pulmonary arterial tree is well opacified with contrast. There are multiple filling defects seen in the right main pulmonary artery, throughout the right upper, middle, and lower lobe branches as well as the left lower lobe consistent with pulmonary emboli. The clot burden is moderate to high. In the RV/LV ratio is within normal limits measuring 0.86. Aorta: The thoracic aorta is nondilated. There is no aneurysm or dissection. Lungs: Small amount of bibasilar infarct or subsegmental atelectasis. Pleural space: Small left pleural effusion layering posteriorly measuring 9 mm. No pneumothorax. Heart: See above. Bones/joints: Multilevel degenerative changes throughout the spine. No acute fracture or destructive bone lesion is seen. No dislocation. Soft tissues: Unremarkable. Lymph nodes: Unremarkable. No enlarged lymph nodes. Stomach and bowel: Staple line along the stomach from previous gastric sleeve procedure. IMPRESSION: 1. The pulmonary arterial tree is well opacified with contrast. There are multiple filling defects seen in the right main pulmonary artery, throughout the right upper, middle, and lower lobe branches as well as the left lower lobe consistent with pulmonary emboli. The clot burden is moderate to high. The RV/LV ratio is within normal limits measuring 0.86. 2. Small amount of bibasilar infarct or subsegmental atelectasis. Communications: Call Doctor Pulmonary Embolism Electronically signed by: Rohan Ricci MD 02/16/24 23:29 PM Chest X-Ray 02/16/24 21:30 Exam(s): XR CXR 1 VIEW EXAM: XR Chest, 1 View CLINICAL HISTORY: Reason for exam: Chest pain, nonspecific. TECHNIQUE: Frontal view of the chest. COMPARISON: February 06, 2024 FINDINGS: Lungs: Lung volumes are low with bronchovascular crowding in the lung bases. No focal infiltrate or consolidation is seen. Pleural space: Unremarkable. No pneumothorax. Heart: Unremarkable. No cardiomegaly. Mediastinum: Unremarkable. Normal mediastinal contour. Bones/joints: Mild osteophytosis in the mid thoracic spine. No acute fracture. Upper abdomen: There is no pneumoperitoneum under the diaphragm. IMPRESSION: Lung volumes are low with bronchovascular crowding in the lung bases. No focal infiltrate or consolidation is seen. Little changed since previous. Electronically signed by: Rohan Ricci MD 02/16/24 23:13 PM Diagnostic Findings EKG as per my interpretation :Rate 80, NSR, LAD, LAFB, nonspecific T wave abnormalities (1) Pulmonary embolism Acute cor pulmonale presence: unspecified Chronicity: acute Pulmonary embolism type: unspecified Qualified Code(s): I26.99 - Other pulmonary embolism without acute cor pulmonale
[2024-02-17] MEDS: Heparin IV Adult Wt-Based Standard w/ INITIAL Bolus Protocol IV STA (00:11)
--- NOTE | 2024-02-17 00:15 | Emergency Department Note ---
History of Present Illness General Chief complaint: Knee Injury/Pain Stated complaint: PAIN IN LEFT KNEE FOLLOWING SURGERY History of Present Illness Maximum Pain Intensity: 2 This 43-year-old female that had surgery a week and a half ago for diverticular abscess who ended up having colon cancer and then was left with an ostomy presents ER complaining of left thigh pain and right-sided chest pain for the past day. She has had a DVT before secondary to . She does not smoke. Patient denies fever, chills, cough, congestion, abdominal pain, leg swelling. Home Medications Medication Instructions Recorded Confirmed Type oxycodone 5 mg tablet 5 - 10 mg (1 - 2 x 5 mg) PO 02/07/24 02/16/24 Rx .[id number] PRN pain, for initial therapy, max 6 tabs per day #15 tabs amoxicillin 875 mg-potassium 1 tab PO BIDM 6 days #12 tabs 02/13/24 02/16/24 Rx clavulanate 125 mg tablet escitalopram oxalate 10 mg tablet 5 mg (1/2 x 10 mg) PO QAM 30 days 02/13/24 02/16/24 Rx #15 tabs famotidine 20 mg tablet 20 mg PO BID 15 days #30 tabs 02/13/24 02/16/24 Rx lorazepam 0.5 mg tablet (Ativan) 0.5 mg PO BID PRN anxiety #30 tabs 02/13/24 02/16/24 Rx sulfamethoxazole 800 1 tab PO Q12@0600,1800 6 days #12 02/13/24 02/16/24 Rx mg-trimethoprim 160 mg tablet tabs (Bactrim DS) vancomycin 125 mg capsule 125 mg PO QID 14 days #56 caps 02/13/24 02/16/24 Rx Allergies Allergy/AdvReac Type Severity Reaction Status Date / Time No Known Allergies Allergy Verified 02/06/24 09:13 Past Med/Surg History Problem List (Updated 02/17/24 @ 00:15 by Ruthie Higgins PA-C) Pulmonary embolism (Acute) Status post exploratory laparotomy Adenocarcinoma, colon Peritonitis Panic attack due to exceptional stress Adjustment disorder with anxious mood Adenocarcinoma of colon Perforated sigmoid colon Anemia (Acute) Abdominal pain (Acute) Gastric bypass status for obesity Acute diverticulitis (Acute) Medical History (Updated 02/17/24 @ 00:15 by Ruthie Higgins PA-C) Depression with anxiety Surgical History (Updated 02/07/24 @ 14:44 by Zari Mena MD) H/O abdominal surgery (02/05/24) Exploratory Laparoscopy Revision of Colostomy and Stoma(Not Applicable) - Elizabeth Velasquez DO History of H/O gastric sleeve History of colon resection (02/04/24) p Diagnostic Laparoscopy, with a laparoscopic colon resection, Abdominal Wash Out, Creation Colostomy(Not Applicable) - Elizabeth Velasquez, DO Extensive lysis of adhesions Social History Smoking Status: Never smoker Hx Alcohol Use: No Hx Substance Use: No Preferred Language: Bangladeshi Communication Ability: Effective Visual Impairment: No Limitations 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 Beliefs That Will Affect Care: None Current Living Situation: Family Feels Safe at Home: Yes Assistive Devices: None Review of Systems A total of 10 systems reviewed and were otherwise negative Physical Exam Vital Signs Vital Signs - 24 hr 02/16/24 21:15 02/16/24 22:04 02/16/24 22:06 Temperature 36.5 C Temperature Source Temporal Artery Scan Pulse Rate 83 79 Respiratory Rate 16 Respiratory Effort / Characteristics Non-Labored Spontaneous Respiratory Depth Normal Respiratory Pattern Regular Blood Pressure 108/75 Blood Pressure Mean 86 Pulse Oximetry 97 96 Oxygen Delivery Method Room Air Room Air Sepsis Recent Fever Within 48 Hours No Sepsis New/Unexplained Change in Mental Status No Sepsis Action Taken by Nursing No Action Required VITALS: Vitals are noted on the nurse's note and reviewed by myself. Vital signs stable. GENERAL: Pleasant patient, in no acute distress, nondiaphoretic, well-developed well-nourished. SKIN: Capillary reflex less than 2 seconds. HEENT: Normocephalic. PERRLA. EOMI. Nares patent. Mucous membranes moist. Neck is supple without nuchal rigidity. HEART: Regular rate and rhythm LUNGS: Clear to auscultation bilaterally without wheezes, rales or rhonchi. No retractions or accessory muscle use. ABDOMEN: Positive bowel sounds x 4. Normal tympanic percussion. Soft, nontender, ostomy without signs of infection, without masses or organomegaly. Espino sign negative. No guarding or rebound tenderness. no CVA tenderness MUSCULOSKELETAL: No gross musculoskeletal defects. No calf tenderness. Bilateral thighs without signs of infection. NEURO: Patient was alert and oriented to person place and time. No focal neurological deficits. Course Administered Medications Discontinued Medications Heparin Sodium/Dextrose (Heparin Iv Adult Wt-Based Standard W/ Initial Bolus Protocol) 1 each IV NOW STA; Protocol Stop: 02/16/24 23:35 Last Admin: 02/17/24 00:11 Dose: Not Given Documented By: HB Ioversol (Optiray 320 125ml) 119 ml IV ONCE ONE Stop: 02/16/24 22:21 Last Admin: 02/16/24 22:20 Dose: 119 ml Documented By: EDK Critical Care Time Critical Care Time: Yes Total Critical Care Time: 35 I have personally spent 35 minutes of critical care time in the direct management of this patient. This includes bedside care, interpretation of diagnostic studies, and testing, discussion with consultants, patient, and family members, and other required patient management activities. This 35 minutes is in excess of all separately billable procedures. Medical Decision Making Medical Records Attestation: I reviewed the patient's medical records. Home Medications Current Medication List: was personally reviewed by me Laboratory Data Attestation: I reviewed the patient's lab results. 02/16/24 21:50 02/16/24 21:50 Lab Results 02/16/24 02/16/24 Range/Units 21:50 21:57 WBC 8.31 (4.8-10.8) K/ul RBC 4.02 L (4.20-5.40) M/uL Hgb 9.8 L (12.0-16.0) g/dl POC Hgb 10.9 L (12.0-16.0) g/dl Hct 32.3 L (37.0-47.0) % POC Hct 32 L (37-47) % MCV 80.3 (80.0-100.0) fL MCH 24.4 L (25.0-34.0) pg MCHC 30.3 L (32.0-36.0) g/dL RDW Std Deviation 51.3 H (36.4-46.3) fL RDW Coeff of Mita 17.6 H (11.5-14.5) % Plt Count 436 H (130-400) K/uL MPV 9.2 L (9.4-12.4) fL Immature Gran % (Auto) 0.6 % Neut % (Auto) 62.7 % Lymph % (Auto) 24.1 % [place] % (Auto) 10.5 % Eos % (Auto) 1.4 % Baso % (Auto) 0.7 % Neut # (Auto) 5.21 (1.40-6.50) K/uL Lymph # (Auto) 2.00 (1.20-3.40) K/uL [place] # (Auto) 0.87 H (0.11-0.59) K/uL Eos # (Auto) 0.12 (0.00-0.50) K/uL Baso # (Auto) 0.06 (0.00-0.20) K/uL Immature Gran # (Auto) 0.05 (0.01-0.20) K/uL PT 11.4 (9.0-12.0) Seconds INR 1.1 (0.9-1.1) APTT 25 (21-31) Seconds PTT Ratio 0.9 POC Sodium 139 (135-144) mmol/L Sodium 137 (136-145) mmol/L POC Potassium 4.1 (3.3-5.0) mmol/L Potassium 4.0 (3.5-5.1) mmol/L POC Chloride 103 (101-112) mmol/L Chloride 103 (98-107) mmol/L Carbon Dioxide 25 (21-32) mmol/L POC Total CO2 23 L (24-31) mmol/L Anion Gap 9 (3-11) POC Anion Gap 18.0 (16-25) mmol/L POC BUN 13 (7-18) mg/dl BUN 13 (6-23) mg/dl Creatinine 0.67 (0.6-1.2) mg/dl POC Creatinine 0.7 (0.6-1.3) mg/dl Est Cr Clr Drug Dosing 112.8 ml/min eGFR 111.84 BUN/Creatinine Ratio 19.4 (10-20) Glucose 97 (70-99(Fasting)) mg/dl POC Glucose (other) 99 (70-99) mg/dl Calcium 8.7 (8.6-10.3) mg/dl POC Ioniz Calcium [place] 1.18 (1.12-1.32) mmol/l Magnesium 1.8 (1.7-2.4) mg/dl Total Bilirubin 0.3 (0.2-1.0) mg/dl AST 14 (13-39) U/L ALT 13 (7-52) U/L Alkaline Phosphatase 94 (34-104) U/L Total Creatine Kinase 21 L (26-192) U/L Troponin I High Sens 2.3 (0-14) pg/ml Total Protein 6.9 (6.0-8.3) gm/dl Albumin 3.6 (3.4-5.0) gm/dl Globulin 3.3 (2.5-4.0) gm/dl Albumin/Globulin Ratio 1.1 (0.9-2) Lipase 99 H (11-82) U/L Imaging Data Attestation: I personally reviewed and interpreted this imaging study as follows: Radiologist's Impression: Chest CTA 02/16/24 21:30 CR Exam(s): CTA CHEST IV Amt: OPTIRAY 320 119ML EXAM: CT Angiography Chest With Intravenous Contrast CLINICAL HISTORY: Reason for exam: Chest Pain, eval for PE. TECHNIQUE: Axial computed tomographic angiography images of the chest with intravenous contrast. CTDI is 28 mGy and DLP is 678 mGy-cm. Automated exposure control was utilized for the study. A dose lowering technique was utilized adhering to the principles of ALARA. MIP reconstructed images were created and reviewed. COMPARISON: No relevant prior studies available. FINDINGS: Pulmonary arteries: The pulmonary arterial tree is well opacified with contrast. There are multiple filling defects seen in the right main pulmonary artery, throughout the right upper, middle, and lower lobe branches as well as the left lower lobe consistent with pulmonary emboli. The clot burden is moderate to high. In the RV/LV ratio is within normal limits measuring 0.86. Aorta: The thoracic aorta is nondilated. There is no aneurysm or dissection. Lungs: Small amount of bibasilar infarct or subsegmental atelectasis. Pleural space: Small left pleural effusion layering posteriorly measuring 9 mm. No pneumothorax. Heart: See above. Bones/joints: Multilevel degenerative changes throughout the spine. No acute fracture or destructive bone lesion is seen. No dislocation. Soft tissues: Unremarkable. Lymph nodes: Unremarkable. No enlarged lymph nodes. Stomach and bowel: Staple line along the stomach from previous gastric sleeve procedure. IMPRESSION: 1. The pulmonary arterial tree is well opacified with contrast. There are multiple filling defects seen in the right main pulmonary artery, throughout the right upper, middle, and lower lobe branches as well as the left lower lobe consistent with pulmonary emboli. The clot burden is moderate to high. The RV/LV ratio is within normal limits measuring 0.86. 2. Small amount of bibasilar infarct or subsegmental atelectasis. Communications: Call Doctor Pulmonary Embolism Electronically signed by: Rohan Ricic MD 02/16/24 23:29 PM Chest X-Ray 02/16/24 21:30 Exam(s): XR CXR 1 VIEW EXAM: XR Chest, 1 View CLINICAL HISTORY: Reason for exam: Chest pain, nonspecific. TECHNIQUE: Frontal view of the chest. COMPARISON: February 06, 2024 FINDINGS: Lungs: Lung volumes are low with bronchovascular crowding in the lung bases. No focal infiltrate or consolidation is seen. Pleural space: Unremarkable. No pneumothorax. Heart: Unremarkable. No cardiomegaly. Mediastinum: Unremarkable. Normal mediastinal contour. Bones/joints: Mild osteophytosis in the mid thoracic spine. No acute fracture. Upper abdomen: There is no pneumoperitoneum under the diaphragm. IMPRESSION: Lung volumes are low with bronchovascular crowding in the lung bases. No focal infiltrate or consolidation is seen. Little changed since previous. Electronically signed by: Rohan Ricci MD 02/16/24 23:13 PM Venous Doppler Study 02/16/24 21:30 Exam(s): US VENOUS BILATERAL LOWER EXTREMITIES EXAM: US Duplex Bilateral Lower Extremities Veins CLINICAL HISTORY: Reason for exam: ? DVT. TECHNIQUE: Real-time duplex ultrasound scan of the bilateral lower extremity veins integrating B-mode two-dimensional vascular structure, Doppler spectral analysis, color flow Doppler imaging and compression. COMPARISON: No relevant prior studies available. FINDINGS: Right deep veins: Unremarkable. No DVT in the right common femoral, femoral, proximal deep femoral or popliteal veins. The veins demonstrate normal color flow, are normally compressible, with normal phasic flow and/or augmentation response. Right superficial veins: Unremarkable. No thrombus in the visualized right great saphenous vein. Left deep veins: Unremarkable. No DVT in the left common femoral, femoral, proximal deep femoral or popliteal veins. The veins demonstrate normal color flow, are normally compressible, with normal phasic flow and/or augmentation response. Left superficial veins: Unremarkable. No thrombus in the visualized left great saphenous vein. Soft tissues: No acute findings. No popliteal cyst. IMPRESSION: Negative bilateral lower extremity duplex venous ultrasound. No evidence of DVT. Electronically signed by: Rohan Ricci MD 02/17/24 00:16 AM MDM Narrative Prior records/ancillary studies reviewed. Triage Nursing notes reviewed. Additional history obtained from family. The patient's history was concerning for chest pain and left thigh pain. Differential diagnosis: Etiologies such as cardiac ischemia, aortic dissection, pulmonary embolism, pneumonia, pneumothorax, musculoskeletal, infections, pericarditis, myocarditis, esophageal rupture, gastrointestinal, as well as others were entertained. Physical examination: As above. ER treatment provided: An order was placed for continuous cardiac monitoring. The monitor shows a rate of 60-100 with a sinus rhythm per my interpretation. Medicine request to hold the heparin until they evaluate Heparin was ordered by admission team On reassessment the patient felt better. Diagnostic interpretation by me: The electrocardiogram was negative for pathologic change. Ordered for chest pain EKG: Normal sinus, normal intervals, no acute ST-T wave changes, rate of 80. Impression normal sinus rhythm independently interpreted by myself I think arrhythmia is unlikely. EKG shows normal sinus rhythm with no interval abnormalities such as QT prolongation or WPW. There are no findings to suggest Brugada syndrome. Cardiac monitoring in the emergency department reveals no tachycardic or bradycardic dysrhythmia. Hypertrophic cardiomyopathy was considered but there are no clear historical elements pointing toward this. EKG is not suggestive. The QRS voltage is not extremely large and there are no suggestive Q waves. The labs Independently Interpreted by myself revealed improving anemia per chart review, negative troponin Imaging studies: Imaging was reviewed and read by radiology as above HEART SCORE: Hx: high/mod/low suspicion: 0 ECG: ST depression/nonspecific changes/normal: 0 Age: Greater than 65/45-64/less than 45: 0 Risk factors: (Hypertension, hyperlipidemia, diabetes, coronary disease, tobacco use, cocaine use): 1 Troponin: Greater than 2 times normal limits/1-2 times normal limits/normal: 0 Total: 1 Consultation: A consultation was placed with the hospitalist. The case was discussed and diagnostics were reviewed. The patient was evaluated in the ER for further treatment. Exam and history seem consistent with PEs. Patient has a history of DVT. She had recent surgery. She was newly diagnosed with colon cancer. Medicine was consulted and the case is discussed. They requested to hold the heparin until they evaluate as patient had blood loss during her surgery. This was deferred to them. Patient is agreeable to treatment plan of admission. Patient was admitted to the medical service. By the evaluation outlined above emergent etiologies such as aortic dissection, pneumonia, pneumothorax, infections, pericarditis, myocarditis, gastrointestinal, as well as others were deemed relatively unlikely. The pt informed about the findings as listed above. All questions were answered and pleased with the treatment. The chart was completed utilizing [employer] voice recognition software. Grammatical errors, random word insertions, pronoun errors, and incomplete sentences are an occassional consequence of this system due to software limitations, ambient noise, and hardware issues. Any formal questions or concerns about the content, text, or information contained within the body of this dictation should be directly addressed to the physician chemistry research assistant for clarification. Impression & Plan Pulmonary embolism Discharge Plan Visit Data Chief Complaint: Knee Injury/Pain Stated Complaint: PAIN IN LEFT KNEE FOLLOWING SURGERY ED Provider: Chacho Ashton ED Midlevel Provider: Ruthie Higgins Discharge Problem: Pulmonary embolism Patient Disposition: Admitted As Inpatient Condition: Fair Forms Stand Alone Forms: [employer] Prescriptions Prescriptions: No Action oxycodone 5 mg tablet 5 - 10 mg PO .[id number] PRN (Reason: pain, for initial therapy, max 6 tabs per day) Qty: 15 0RF sulfamethoxazole-trimethoprim [Bactrim DS] 800-160 mg Tablet 1 tab PO Q12@0600,1800 6 Days Qty: 12 0RF amoxicillin-pot clavulanate 875-125 mg Tablet 1 tab PO BIDM 6 Days Qty: 12 0RF vancomycin 125 mg capsule 125 mg PO QID 14 Days Qty: 56 0RF famotidine 20 mg Tablet 20 mg PO BID 15 Days Qty: 30 0RF escitalopram oxalate 10 mg Tablet 5 mg PO QAM 30 Days Qty: 15 0RF lorazepam [Ativan] 0.5 mg tablet 0.5 mg PO BID PRN (Reason: anxiety) Qty: 30 0RF Referrals Referrals: Annie Ch DO [Primary Care Provider] - Discharge Problem: Pulmonary embolism Qualifiers: Pulmonary embolism type: unspecified Chronicity: acute Acute cor pulmonale presence: unspecified Qualified Code(s): I26.99 - Other pulmonary embolism without acute cor pulmonale
--- NOTE | 2024-02-17 00:18 | Ultrasound Report ---
Exam(s): US VENOUS BILATERAL LOWER EXTREMITIES EXAM: US Duplex Bilateral Lower Extremities Veins CLINICAL HISTORY: Reason for exam: ? DVT. TECHNIQUE: Real-time duplex ultrasound scan of the bilateral lower extremity veins integrating B-mode two-dimensional vascular structure, Doppler spectral analysis, color flow Doppler imaging and compression. COMPARISON: No relevant prior studies available. FINDINGS: Right deep veins: Unremarkable. No DVT in the right common femoral, femoral, proximal deep femoral or popliteal veins. The veins demonstrate normal color flow, are normally compressible, with normal phasic flow and/or augmentation response. Right superficial veins: Unremarkable. No thrombus in the visualized right great saphenous vein. Left deep veins: Unremarkable. No DVT in the left common femoral, femoral, proximal deep femoral or popliteal veins. The veins demonstrate normal color flow, are normally compressible, with normal phasic flow and/or augmentation response. Left superficial veins: Unremarkable. No thrombus in the visualized left great saphenous vein. Soft tissues: No acute findings. No popliteal cyst. IMPRESSION: Negative bilateral lower extremity duplex venous ultrasound. No evidence of DVT. Electronically signed by: Rohan Ricci MD 02/17/24 00:16 AM
[2024-02-17] MEDS: HEPARIN SODIUM/DEXTROSE 25,000 UNITS/500 ML BAG IV SCH (00:58)
[2024-02-17] MEDS: SODIUM CHLORIDE 0.9% 1,000 ML IV ONE (00:58)
[2024-02-17] MEDS: Heparin IV Adult Wt-Based Standard *NO* INITIAL Bolus Protocol IV STA (01:03)
[2024-02-17] MEDS ORDERED: PROMETHAZINE 6.25 MG/50.25 ML BAG IV PRN (01:24)
[2024-02-17] MEDS ORDERED: ACETAMINOPHEN 325 MG TAB PO PRN (01:24)
[2024-02-17] MEDS: SULFAMETHOXAZOLE/TRIMETHOPRIM DS 800/160MG TAB PO SCH (01:53)
[2024-02-17] MEDS: AMOXICILLIN/CLAVULANATE 875 MG TAB PO SCH (01:53)
[2024-02-17] MEDS: LORazepam 0.5 MG TAB PO PRN (01:55)
[2024-02-17] MEDS: VANCOMYCIN HCL 125 MG/2.5ML SOLN PO STA (01:56)
[2024-02-17] MEDS: CHERRY SYRUP 5 ML UDP PO STA (01:56)
[2024-02-17] MEDS: CHERRY SYRUP 5 ML UDP PO SCH (06:05)
[2024-02-17] MEDS: VANCOMYCIN HCL 125 MG/2.5ML SOLN PO SCH (06:06)
[2024-02-17 07:47] LABS: Basophils # (auto) 0.05 K/uL (0.00-0.20); Basophils % (auto) 0.7 %; Eosinophils # (auto) 0.11 K/uL (0.00-0.50); Eosinophils % (auto) 1.5 %; Hematocrit (blood only) 28.7 % (37.0-47.0); Immature Granulocytes # (auto) 0.05 K/uL (0.01-0.20); Immature Granulocytes % (auto) 0.7 %; Lymphocytes # (auto) 2.39 K/uL (1.20-3.40); Lymphocytes % (auto) 32.7 %; Mean Corpuscular Hemoglobin 24.7 pg (25.0-34.0); Mean Corpuscular Hgb Conc 31.4 g/dL (32.0-36.0); Mean Corpuscular Volume 78.6 fL (80.0-100.0); Mean Platelet Volume 9.5 fL (9.4-12.4); Monocytes # (auto) 0.88 K/uL (0.11-0.59); Monocytes % (auto) 12.1 %; Neutrophils # (auto) 3.82 K/uL (1.40-6.50); Neutrophils % (auto) 52.3 %; Platelet Count 377 K/uL (130-400); RDW Standard Deviation 51.6 fL (36.4-46.3); Red Blood Count 3.65 M/uL (4.20-5.40)
[2024-02-17 08:12] LABS: ANTI-Xa, UFH(UnfractionatedHep 0.23 IU/ml (0.3-0.7)
[2024-02-17 08:18] LABS: BUN Creatinine Ratio 19.6 (10-20); Calcium 8.3 mg/dl (8.6-10.3); Potassium 3.8 mmol/L (3.5-5.1)
[2024-02-17] MEDS: FAMOTIDINE 20 MG TAB PO SCH (08:28)
[2024-02-17] MEDS: ESCITALOPRAM OXALATE 10 MG TAB PO SCH ×2 (09:34→10:42)
--- NOTE | 2024-02-17 11:01 | Hospitalist Progress Note ---
Date of Service February 17, 2024 Assessment & Plan (1) Pulmonary embolism: Plan: Ms. 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 Dopplers negative for DVT at this time. CT PE: The pulmonary arterial tree is well opacified with contrast. There are multiple filling defects seen in the right main pulmonary artery, throughout the right upper, middle, and lower lobe branches as well as the left lower lobe consistent with pulmonary emboli. The clot burden is moderate to high. The RV/LV ratio is within normal limits measuring 0.86. Patient continued on on PO abx at this time until 02/19, then continue vancomycin po until 02/26 from prior admission. #Acute pulmonary emboli, provoked iso malignancy and surgical intervention #Lower extremity pain CT as above, vital signs stable Heme consulted by admitted provider continue heparin for 48 hours Plan to assess cost of eliquis ECHO without noted strain #Perforated diverticulitis s/p colonic resection and washout #C Diff colitis -s/p laparoscopic colon resection, abdominal wash out and creation of a colostomy on 02/03 -abdominal Cx 02/03 growing ESBL E.coli and Bacteroides -surgical pathology of intraop samples noting adenocarcinoma of the colon Continue Augmentin 875mg BID WITH Bactrim DS for 14 days of treatment from the day of surgery (02/19). Continue treatment for c diff with po vancomycin should continue for 7 days after finishing Augmentin/Bactrim (02/26) #Adenocarcinoma of the colon to establish with Dr Angulo for further management #Chronic Microcytic Anemia, multifactorial iso recent surgical operation, infection, malignancy CTM , transfuse <7.0 trend hgb iso anticoagulation #Panic Attacks #Anxiety -continue home escitalopram 10mg daily -continue ativan prn Diet:regular DVT prophylaxis:heparin ggt Dispo: home once medically stable, pt/ot rec home with Admission and Anticipated Discharge Date Admission Date: February 16, 2024 Subjective Patient states she occasionally feels right costal/flank pain with inhalation, though that was related to postop recovery, reported left leg to be sore which prompted presentation feels "ok" but understandably upset as she started to feel more stable at home Discussed plan to send eliquis and assess cost, patient agreed to plan No sob, dizziness, exertional symptoms reported Physical Exam Constitutional: slightly tearful on exam Respiratory: normal respiratory effort, lungs clear to auscultation Cardiovascular: RRR, no murmur, no edema Results & Data Results & Data Vital Signs (Past 12 Hours) Vital Signs Pulse Pulse Resp BP BP Pulse Ox Pulse Ox 02/17/24 10:00 77 16 129/81 95 02/17/24 07:02 68 02/17/24 07:00 69 16 110/78 94 02/17/24 05:03 70 16 107/78 93 02/17/24 03:39 82 13 125/80 95 02/17/24 02:00 89 18 112/71 95 02/17/24 01:58 90 02/17/24 01:36 96 02/17/24 01:30 75 13 106/70 95 02/17/24 01:30 75 18 106/70 95 02/17/24 01:00 77 13 109/80 02/17/24 00:30 80 12 119/80 02/17/24 00:00 78 14 113/77 97 02/17/24 00:00 80 16 113/77 97 O2 Del Method O2 Del Method 02/17/24 10:00 Room Air 02/17/24 07:02 02/17/24 07:00 Room Air 02/17/24 05:03 02/17/24 03:39 02/17/24 02:00 Room Air 02/17/24 01:58 02/17/24 01:36 Room Air 02/17/24 01:30 02/17/24 01:30 Room Air 02/17/24 01:00 02/17/24 00:30 02/17/24 00:00 02/17/24 00:00 Room Air Laboratory Results Short CBC 02/16/24 02/17/24 Range/Units 21:50 07:08 WBC 8.31 7.30 (4.8-10.8) K/ul Hgb 9.8 L 9.0 L (12.0-16.0) g/dl Hct 32.3 L 28.7 L (37.0-47.0) % Plt Count 436 H 377 (130-400) K/uL BMP 02/16/24 02/17/24 21:50 07:08 Sodium 137 139 Potassium 4.0 3.8 Chloride 103 107 Carbon Dioxide 25 24 BUN 13 11 Creatinine 0.67 0.56 L Glucose 97 86 Calcium 8.7 8.3 L Cardiac Enzymes 02/16/24 Range/Units 21:50 Total Creatine Kinase 21 L (26-192) U/L Liver Function 02/16/24 Range/Units 21:50 Total Bilirubin 0.3 (0.2-1.0) mg/dl AST 14 (13-39) U/L ALT 13 (7-52) U/L Alkaline Phosphatase 94 (34-104) U/L Albumin 3.6 (3.4-5.0) gm/dl Medications Administered Home Medications Medication Instructions Recorded Confirmed Last Taken oxycodone 5 mg tablet 5 - 10 mg (1 - 2 x 5 mg) PO 02/07/24 02/16/24 Unknown .[id number] PRN pain, for initial therapy, max 6 tabs per day #15 tabs amoxicillin 875 mg-potassium 1 tab PO BIDM 6 days #12 tabs 02/13/24 02/16/24 Unknown clavulanate 125 mg tablet escitalopram oxalate 10 mg tablet 5 mg (1/2 x 10 mg) PO QAM 30 days 02/13/24 02/16/24 Unknown #15 tabs famotidine 20 mg tablet 20 mg PO BID 15 days #30 tabs 02/13/24 02/16/24 Unknown lorazepam 0.5 mg tablet (Ativan) 0.5 mg PO BID PRN anxiety #30 tabs 02/13/24 02/16/24 Unknown sulfamethoxazole 800 1 tab PO Q12@0600,1800 6 days #12 02/13/24 02/16/24 Unknown mg-trimethoprim 160 mg tablet tabs (Bactrim DS) vancomycin 125 mg capsule 125 mg PO QID 14 days #56 caps 02/13/24 02/16/24 Unknown Active Medications Generic Name Dose Route Start Last Admin Trade Name Freq PRN Reason Stop Dose Admin Amoxicillin/Clavulanate Potassium 1 tab 02/17/24 01:25 02/17/24 08:28 Amoxicillin/Clavulanate 875 Mg Tab PO 02/27/24 01:24 1 tab BIDM LORETTA Administration Protocol Santillan Syrup 5 ml 02/17/24 06:00 02/17/24 06:05 Santillan Syrup 5 Ml Udp PO 02/27/24 05:59 5 ml Q6 LORETTA Administration Escitalopram Oxalate 10 mg 02/17/24 10:00 02/17/24 10:42 Escitalopram Oxalate 10 Mg Tab PO 03/18/24 09:59 10 mg QAM LORETTA Administration Famotidine 20 mg 02/17/24 09:00 02/17/24 08:28 Famotidine 20 Mg Tab PO 03/18/24 08:59 20 mg BID LORETTA Administration Heparin Sodium/Dextrose 25,000 units in 500 mls @ 23 mls/hr 02/17/24 00:30 02/17/24 00:58 Heparin Sodium/Dextrose IV 03/18/24 00:29 1,150 units/hr .[id number] LORETTA 23 mls/hr Administration Protocol 1,150 UNITS/HR Lorazepam 0.5 mg 02/17/24 01:22 02/17/24 01:55 Lorazepam 0.5 Mg Tab PO 03/18/24 01:21 0.5 mg BID PRN Administration anxiety Trimethoprim/Sulfamethoxazole 1 tab 02/17/24 01:25 02/17/24 08:28 Sulfamethoxazole/Trimethoprim Ds 800/160mg Tab PO 02/27/24 01:24 1 tab Q12@0600,1800 LORETTA Administration Vancomycin HCl 125 mg 02/17/24 06:00 02/17/24 06:06 Vancomycin Hcl 125 Mg/2.5ml Soln PO 02/27/24 05:59 125 mg Q6 LORETTA Administration (1) Pulmonary embolism Acute cor pulmonale presence: unspecified Chronicity: acute Pulmonary embolism type: unspecified Qualified Code(s): I26.99 - Other pulmonary embolism without acute cor pulmonale
[2024-02-17 12:13] LABS: Ferritin 33.4 ng/ml (8-388)
--- NOTE | 2024-02-17 16:06 | Oncology Consultation ---
Date of Consultation February 17, 2024 Assessment & Plan (1) Adenocarcinoma, colon: colon cancer will be managed on an outpatient basis once the other medical comorbidities which are acute have been managed including perforated diverticulitis, C. difficile colitis and infection. She will obviously need adjuvant chemotherapy along with consideration for HIPEC and bowel resection.. My office is scheduling an appointment with the patient to initiate therapy. Once sepsis is cleared and she is off antibiotics she will need a Mediport placed still start chemotherapy (2) Pulmonary embolism: recommend continuing anticoagulation with heparin, transition to Eliquis on an outpatient basis. Most likely the cause for pulmonary embolism is the underlying malignancy and recent critical illness. There have been no stigmata of bleeding while she has been on anticoagulation Plan Medical oncology will continue to follow the patient make appropriate recommendations. Thank you for this interesting oncological consult. History of Present Illness Reason for Consultation: Colorectal cancer Attending Physician: Nighat Olivo MD History of Present Illness The patient is a very pleasant 43-year-old woman who was admitted to [facility] because of perforated sigmoid colon, status post laparoscopic abdominal washout, colonic resection and creation of colostomy on 1028. Her surgical pathology revealed colorectal cancer. Interestingly the patient has had multiple visits to the ER over the last 6 months with diverticulitis and has been started on antibiotics multiple times. She was scheduled to see gastroenterology however because of her ongoing diverticulitis could never be evaluated. partial descending colon resection, 02/04/2024 Surgical pathology report revealedTumor Site: Descending colon Histologic Type: Adenocarcinoma Histologic Grade: G2, moderately differentiated Tumor Size: Cannot be determined (explain): No distinct mass lesion was seen and the specimen was not submitted as tumor for initial grossing Multiple Primary Sites: Not applicable (no additional primary site(s) present) Tumor Extent: Directly invades or adheres to adjacent structure(s)(specify): Colon was directly adherent to small bowel, mesentery, and uterus (per surgeon) Macroscopic Tumor Perforation: Present Lymphatic and/or Vascular Invasion: Not identified Perineural Invasion: Not identified Tumor Budding Score: High (10 or more) Treatment Effect: No known presurgical therapy Margin Status for Invasive Carcinoma: Invasive carcinoma present at margin Margin(s) Involved by Invasive Carcinoma: Cannot be determined: one of the stapled ends shows tumor (un-oriented) Margin Status for Non-invasive Tumor: Cannot be determined Regional Lymph Node Status: Not applicable (no regional lymph nodes submitted or found) Tumor Deposits: Not identified Pathologic Stage Classification: pT4b [pN not assigned (no nodes submitted or found). CT of the chest, 02/06/2024: IMPRESSION: 1. Limited examination in the absence of contrast. 2. Partially visualized free air in the abdomen. Consider correlation with prior operative history. 3. Limited examination given lack of clinical history and posttreatment history. Recommend continued attention on follow-up imaging as dictated per patient's primary malignancy. CT of the abdomen pelvis, 02/04/2024: Marked inflammatory process in the pelvis. This is likely due to acute diverticulitis of the sigmoid colon. There are extraluminal air collections adjacent to the sigmoid colon consistent with perforation. Free fluid in the abdomen and pelvis. A fluid collection in the lower right paracolic gutter showed some peripheral enhancement of the peritoneum and could be organizing into an early abscess. venous Doppler, 02/16/2024: IMPRESSION: Negative bilateral lower extremity duplex venous ultrasound. No evidence of DVT. Allergies Allergy/AdvReac Type Severity Reaction Status Date / Time No Known Allergies Allergy Verified 02/06/24 09:13 Home Medications Medication Instructions Recorded Confirmed Type oxycodone 5 mg tablet 5 - 10 mg (1 - 2 x 5 mg) PO 02/07/24 02/16/24 Rx .[id number] PRN pain, for initial therapy, max 6 tabs per day #15 tabs amoxicillin 875 mg-potassium 1 tab PO BIDM 6 days #12 tabs 02/13/24 02/16/24 Rx clavulanate 125 mg tablet escitalopram oxalate 10 mg tablet 5 mg (1/2 x 10 mg) PO QAM 30 days 02/13/24 02/16/24 Rx #15 tabs famotidine 20 mg tablet 20 mg PO BID 15 days #30 tabs 02/13/24 02/16/24 Rx lorazepam 0.5 mg tablet (Ativan) 0.5 mg PO BID PRN anxiety #30 tabs 02/13/24 02/16/24 Rx sulfamethoxazole 800 1 tab PO Q12@0600,1800 6 days #12 02/13/24 02/16/24 Rx mg-trimethoprim 160 mg tablet tabs (Bactrim DS) vancomycin 125 mg capsule 125 mg PO QID 14 days #56 caps 02/13/24 02/16/24 Rx apixaban 5 mg tablet (Eliquis) See Rx Instructions .Route 02/17/24 Rx .COMPLEX #74 tabs Patient History Medical History (Updated 02/17/24 @ 00:15 by Ruthie Higgins PA-C) Depression with anxiety Surgical History (Updated 02/07/24 @ 14:44 by Zari Mena MD) H/O abdominal surgery (02/05/24) Exploratory Laparoscopy Revision of Colostomy and Stoma(Not Applicable) - Elizabeth Velasquez DO History of H/O gastric sleeve History of colon resection (02/04/24) p Diagnostic Laparoscopy, with a laparoscopic colon resection, Abdominal Wash Out, Creation Colostomy(Not Applicable) - Elizabeth Velasquez, DO Extensive lysis of adhesions Social History Smoking Status: Unknown if ever smoked Hx Alcohol Use: No Hx Substance Use: No Preferred Language: Italian Communication Ability: Effective Visual Impairment: No Limitations 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 Consulting 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 Required: No Beliefs That Will Affect Care: None Current Living Situation: Family Feels Safe at Home: Yes Safety Concerns: Feels Safe At This Time Assistive Devices: Cane, Oxygen - Continuous and Walker Review of Systems Review of Systems: All systems reviewed & are unremarkable except as noted in HPI & below Constitutional: as per Subjective / HPI Eyes: as per Subjective / HPI Ear, Nose, Mouth, Throat: as per Subjective / HPI Respiratory: as per Subjective / HPI Cardiovascular: as per Subjective / HPI Gastrointestinal: as per Subjective / HPI Genitourinary: as per Subjective / HPI Musculoskeletal: as per Subjective / HPI Integumentary: as per Subjective / HPI Neurologic: as per Subjective / HPI Psychiatric: as per Subjective / HPI Endocrine: as per Subjective / HPI Hematologic / Lymphatic: as per Subjective / HPI Allergy / Immunological: as per Subjective / HPI Physical Exam Constitutional: WD/WN, vitals as above Eyes: PERRL, conjunctivae normal, anicteric sclerae ENMT: external ear and nose normal, oropharynx normal Neck: trachea midline, no thyromegaly Respiratory: normal respiratory effort, lungs clear to auscultation Cardiovascular: RRR, no murmur, no edema Gastrointestinal (Abdomen): normal bowel sounds, soft, nontender, no hepatosplenomegaly Musculoskeletal: no cyanosis or clubbing, extremities motor strength 5/5 Skin: no rashes, warm and dry Neurologic: patellar DTR's 2+ bilat, sensation intact Psychiatric: A+Ox3, euthymic affect Genitourinary: no vaginal lesions, no adnexal mass Lymphatic: no cervical or axillary lymphadenopathy Results & Data Vital Signs (Past 12 Hours) Vital Signs Pulse Pulse Resp BP BP Pulse Ox O2 Del Method 02/17/24 14:40 80 18 112/71 95 Room Air 02/17/24 10:00 77 16 129/81 95 Room Air 02/17/24 07:02 68 02/17/24 07:00 69 16 110/78 94 Room Air 02/17/24 05:03 70 16 107/78 93 (2) Pulmonary embolism Acute cor pulmonale presence: unspecified Chronicity: acute Pulmonary embolism type: unspecified Qualified Code(s): I26.99 - Other pulmonary embolism without acute cor pulmonale
[2024-02-17 17:04] LABS: ANTI-Xa, UFH(UnfractionatedHep 0.22 IU/ml (0.3-0.7)
[2024-02-18 00:18] LABS: ANTI-Xa, UFH(UnfractionatedHep 0.24 IU/ml (0.3-0.7)
[2024-02-18] MEDS: oxyCODONE HCL IR 5 MG TAB (IMMEDIATE RELEASE) PO PRN (05:40)
[2024-02-18 07:40] LABS: ANTI-Xa, UFH(UnfractionatedHep 0.31 IU/ml (0.3-0.7)
[2024-02-18] MEDS: APIXABAN 5 MG TABLET PO SCH (09:36)
[2024-02-18 10:12] VITALS: PULSE 75; RESP 14; TEMP 97.9; O2SAT 95
--- NOTE | 2024-02-18 10:42 | Discharge Summary ---
Discharge Summary Date of Service February 18, 2024 Principal Dx & Hospital Course #1 = Principal Diagnosis (1) Pulmonary embolism: Ms. 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 Dopplers negative for DVT at this time. CT revealed the following CT PE: The pulmonary arterial tree is well opacified with contrast. There are multiple filling defects seen in the right main pulmonary artery, throughout the right upper, middle, and lower lobe branches as well as the left lower lobe consistent with pulmonary emboli. The clot burden is moderate to high. The RV/LV ratio is within normal limits measuring 0.86. Patient without oxygen requirement and doing well over all, without subjective concerns like NEAL or other noted symptoms. Patient started on eliquis with a noted 0$ copay. Patient continued on on PO abx at this time until 02/19, then continue vancomycin po until 02/26 from prior admission. #Acute pulmonary emboli, provoked iso malignancy and surgical intervention #Lower extremity pain CT as above, vital signs stable Heme consulted by admitted provider discontinue heparin, started on eliquis ECHO without noted strain #Perforated diverticulitis s/p colonic resection and washout #C Diff colitis -s/p laparoscopic colon resection, abdominal wash out and creation of a colostomy on 02/03 -abdominal Cx 02/03 growing ESBL E.coli and Bacteroides -surgical pathology of intraop samples noting adenocarcinoma of the colon Continue Augmentin 875mg BID WITH Bactrim DS for 14 days of treatment from the day of surgery (02/19). Continue treatment for c diff with po vancomycin should continue for 7 days after finishing Augmentin/Bactrim (02/26) #Adenocarcinoma of the colon to establish with Dr Angulo for further management #Chronic Microcytic Anemia, multifactorial iso recent surgical operation, infection, malignancy stable hgb #Panic Attacks #Anxiety -continue home escitalopram 10mg daily -continue ativan prn Notes For Next Care Provider Medication Changes From Visit Eliquis BID Flexeril BID prn spasm (back) Admission HPI Per Admitting Provider History obtained from patient and records. Medical history significant for recent colon cancer diagnosis, recent bowel surgery for perforated diverticulitis ongoing antibiotic Rx, C. difficile ongoing vancomycin course, hx of gastric bypass, history LE DVT attributed to status post Lovenox, anxiety/mood disorder. Recent confinement February 02 to February 13, 2024 for sepsis secondary to perforated diverticulitis status post surgery. Adenocarcinoma on pathology. Patient course complicated by C. difficile. Patient discharged on oral vancomycin course in addition to Augmentin and Bactrim Rx for diverticulitis. Hemoglobin 10 at time of discharge. Patient noted pleuritic right-sided chest pain following discharge from the hospital which he attributed to surgery. No SOB or cough symptoms. Patient experienced achy left leg pain today associated with pleuritic right- sided chest pain following discharge from hospital. Patient worried about blood clot given recent confinement. History left lower extremity DVT attributed to with her second child about 20 years ago for which patient completed Lovenox course. 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 Admission Exam Per Admitting Provider GENERAL: Comfortable, obese, pleasant, no respiratory distress SKIN: Pallor, warm HEENT: Pale palpebral conjunctivae, no ptosis, dry buccal mucosa NECK : Supple, no tenderness CHEST : CTA, no tenderness HEART : RRR, no obvious murmurs ABDOMEN: Some distention, no overt tenderness EXTREMITIES : No LE swelling, no LE tenderness, no other conspicuous deformities noted NEUROLOGIC : Coherent, no facial asymmetry, no other gross focality Discharge Exam Constitutional WD/WN, vitals as above Respiratory normal respiratory effort, lungs clear to auscultation Cardiovascular RRR, no murmur, no edema Gastrointestinal (Abdomen) stoma with good output, brown thin stool. Parachute mucosa Updated Medication List Medication Instructions Recorded Confirmed Type oxycodone 5 mg tablet 5 - 10 mg (1 - 2 x 5 mg) PO 02/07/24 02/16/24 Rx .[id number] PRN pain, for initial therapy, max 6 tabs per day #15 tabs amoxicillin 875 mg-potassium 1 tab PO BIDM 6 days #12 tabs 02/13/24 02/16/24 Rx clavulanate 125 mg tablet escitalopram oxalate 10 mg tablet 5 mg (1/2 x 10 mg) PO QAM 30 days 02/13/24 02/16/24 Rx #15 tabs famotidine 20 mg tablet 20 mg PO BID 15 days #30 tabs 02/13/24 02/16/24 Rx lorazepam 0.5 mg tablet (Ativan) 0.5 mg PO BID PRN anxiety #30 tabs 02/13/24 02/16/24 Rx sulfamethoxazole 800 1 tab PO Q12@0600,1800 6 days #12 02/13/24 02/16/24 Rx mg-trimethoprim 160 mg tablet tabs (Bactrim DS) vancomycin 125 mg capsule 125 mg PO QID 14 days #56 caps 02/13/24 02/16/24 Rx apixaban 5 mg tablet (Eliquis) See Rx Instructions .Route 02/17/24 Rx .COMPLEX #74 tabs cyclobenzaprine 5 mg tablet 5 mg PO BID PRN muscle spasm #30 02/18/24 Rx tabs Hospital Stay Data Consultations 02/16/24 23:35 ED Decision to Admit Stat 02/17/24 02:00 Consult Hematology Routine Diagnostic Imagining Performed 02/16/24 21:30 CT angio chest PE protocol Stat US venous doppler LE BI Stat Pending Results Patient Have Any Pending Studies at Discharge: No Discharge Instructions Given to Patient (Per Discharging Provider) You were admitted for leg pain and though there is no active clot in your leg, you were found to have pulmonary embolism, or blots in your lung. You were not noted to have any resulting heart failure due to this clot. You were started on Eliquis. Please take 10 mg (2 tabs) two times a day until 02/23, then transition to 5mg (1 tab) two times a from 02/24 onward. You will continue on on your previously prescribed Augmentin and Bactrim at this time until 02/19, then continue vancomycin by mouth until 02/26 from prior admission. Total Time Total Time Spent Total Time Spent (In Minutes): 45
[2024-02-18 10:56] VITALS: BP 96/66
--- NOTE | 2024-02-19 10:39 | Electrocardiogram Report ---
Test Reason : Blood Pressure : */* mmHG Vent. Rate : 80 BPM Atrial Rate : 80 BPM P-R Int : 140 ms QRS Dur : 84 ms QT Int : 380 ms P-R-T Axes : 7 -5 8 degrees QTcB Int : 438 ms Normal sinus rhythm Cannot rule out Anterior infarct , age undetermined Abnormal ECG When compared with ECG of 07-Feb-2024 05:43, T wave amplitude has decreased in Lateral leads Confirmed by Lc Thibodeaux ([id number]) on 02/19/2024 10:39:23 AM Referred By: REFERRED SELF Confirmed By: Lc Thibodeaux
== END 2024-02-18 13:32 | disposition home health service (06) | DRG 176 ==
LOC: ED 20:58 → EDINP 23:57 → INTOOBSV 23:57 → 2W 02-17 01:36

== ENCOUNTER 2024-03-27 06:41 | Observation (INO) ==
[2024-03-27 07:27] LABS: Basophils # (auto) 0.04 K/uL (0.00-0.20); Basophils % (auto) 0.5 %; Eosinophils # (auto) 0.36 K/uL (0.00-0.50); Eosinophils % (auto) 4.4 %; Hematocrit (blood only) 34.6 % (37.0-47.0); Hemoglobin 10.7 g/dl (12.0-16.0); Immature Granulocytes # (auto) 0.03 K/uL (0.01-0.20); Immature Granulocytes % (auto) 0.4 %; Lymphocytes # (auto) 1.51 K/uL (1.20-3.40); Lymphocytes % (auto) 18.4 %; Mean Corpuscular Hemoglobin 23.9 pg (25.0-34.0); Mean Corpuscular Hgb Conc 30.9 g/dL (32.0-36.0); Mean Corpuscular Volume 77.4 fL (80.0-100.0); Mean Platelet Volume 9.3 fL (9.4-12.4); Monocytes # (auto) 0.44 K/uL (0.11-0.59); Monocytes % (auto) 5.4 %; Neutrophils # (auto) 5.82 K/uL (1.40-6.50); Neutrophils % (auto) 70.9 %; Platelet Count 282 K/uL (130-400); RDW Standard Deviation 51.8 fL (36.4-46.3); Red Blood Count 4.47 M/uL (4.20-5.40)
[2024-03-27] MEDS: SODIUM CHLORIDE 0.9% 500 ML IV ONE (07:32)
[2024-03-27] MEDS: ONDANSETRON INJ 2 MG/ML 2 ML VIAL IV STA (07:32)
--- NOTE | 2024-03-27 07:32 | Emergency Department Note ---
ED Provider Note History of Present Illness Chief Complaint: Vomiting Stated Complaint: VOMITING,ABD PAIN Time Seen by Provider: 03/27/24 07:07 Source: patient Mode of arrival: ambulatory Limitations: no limitations Patient is a 44-year-old female who presents to the emergency department with complaints of abdominal pain and vomiting since midnight. Patient states that yesterday she a hot dog that was left out on the counter all day and approximately 2 hours after eating that she was having uncontrolled vomiting. Patient states that at this point she is just vomiting bile. Patient states that when she tries to keep fluids down she still vomiting. Patient does have a history of colon cancer and colostomy placement. Patient states that she had her last chemo treatment last Saturday and is scheduled to have another this Saturday. Patient denies any chest pain or shortness of breath at this time. Home Medications Medication Instructions Recorded Confirmed Type lorazepam 0.5 mg tablet (Ativan) 0.5 mg PO BID PRN anxiety #30 tabs 02/13/24 03/27/24 Rx famotidine 20 mg tablet 20 mg PO BID Acid Reflux 03/03/24 03/27/24 History apixaban 5 mg tablet (Eliquis) 5 mg PO BID 03/27/24 03/27/24 History escitalopram oxalate 20 mg tablet 20 mg PO QAM 03/27/24 03/27/24 History fluconazole 200 mg tablet 200 mg PO DAILY 03/27/24 03/27/24 History ondansetron HCl 8 mg tablet 8 mg PO Q8H PRN Nausea 03/27/24 03/27/24 History prochlorperazine maleate 10 mg 10 mg PO Q6H PRN n/v 03/27/24 03/27/24 History tablet Allergies Allergy/AdvReac Type Severity Reaction Status Date / Time No Known Allergies Allergy Verified 03/03/24 12:30 Past Med/Surg History Problem List Nausea & vomiting (Acute) Small bowel obstruction (Acute) Partial small bowel obstruction Encounter for pre-operative examination Pulmonary embolism (Acute) 02/16/24- on Eliquis Status post exploratory laparotomy Adenocarcinoma, colon Panic attack due to exceptional stress Adjustment disorder with anxious mood Anemia (Acute) Gastric bypass status for obesity Medical History Peritonitis Abdominal pain Acute diverticulitis History of Clostridium difficile infection diagnosed 02/09/24 while admitted in hospital - treated with Vancomycin until 02/27/24 Colostomy present done 02/04/24 stoma revised 02/06/24 with an additional 4.5cm of the colon removed History of diverticulitis history of multiple flares over the past year Hx of deep venous thrombosis (2010) - s/p childbirth in 2010- was on blood thinner for short time - no DVT noted with PE on 02/16/24 Hx of migraines History of panic attacks History of pulmonary embolism dx 02/16/24 at [place]>started on Eliquis provoked by malignancy and surgical intervention per records dopplers negative for DVT Adenocarcinoma of colon dx'ed 01/2024 Perforated sigmoid colon - 02/03/24 due to enlarging mass (adenocarcinoma of the colon) - 02/04/24 underwent partial left colon resection and end colostomy Depression with anxiety Surgical History Port-A-Cath in place (03/13/24) Insertion of Access Port with Fluoroscopy into Right Internal Jugular Vein(Right) - Elizabeth Velasquez DO [place] teeth removed H/O abdominal surgery (02/05/24) Exploratory Laparoscopy Revision of Colostomy and Stoma(Not Applicable) - Elizabeth Velasquez DO History of x 2 H/O gastric sleeve (2021) History of colon resection (02/04/24) p Diagnostic Laparoscopy, with a laparoscopic colon resection, Abdominal Wash Out, Creation Colostomy(Not Applicable) - Elizabeth Velasquez DO Extensive lysis of adhesions Family History Other No family history of adverse response to anesthesia Social History Smoking Status: Never smoker Second Hand Exposure: No; Do You Dip or Chew Tobacco: No; Hx Alcohol Use: No Hx Substance Use: No Preferred Language: Kinyarwanda Communication Ability: Effective Visual Impairment: No Limitations Manager Etl Required: No Beliefs That Will Affect Care: None Current Living Situation: Spouse Other Information That Helps Us Care for You: No Feels Safe at Home: Yes Safety Concerns: Feels Safe At This Time Assistive Devices: Cane and Walker Physical Exam Vital Signs Vital Signs - 24 hr 03/27/24 06:47 03/27/24 08:00 03/27/24 08:22 Temperature 36.9 C Temperature Source Temporal Artery Scan Pulse Rate 103 H 81 Pulse Rate [Apical] 83 Pulse Rhythm [Apical] Regular Pulse Strength [Apical] Normal Respiratory Rate 18 18 Respiratory Effort / Characteristics Non-Labored Non-Labored Spontaneous Respiratory Depth Normal Normal Respiratory Pattern Regular Regular Blood Pressure 115/88 Blood Pressure [Right Arm] 152/94 H Blood Pressure Mean 97 Blood Pressure Mean [Right Arm] 113 Pulse Oximetry 98 95 Oxygen Delivery Method Room Air Room Air Sepsis Recent Fever Within 48 Hours No Sepsis New/Unexplained Change in Mental Status N/A Sepsis Action Taken by Nursing No Action Required 03/27/24 09:00 03/27/24 10:00 Temperature Temperature Source Pulse Rate Pulse Rate [Apical] 77 97 H Pulse Rhythm [Apical] Regular Regular Pulse Strength [Apical] Normal Normal Respiratory Rate 18 18 Respiratory Effort / Characteristics Non-Labored Spontaneous Non-Labored Spontaneous Respiratory Depth Normal Normal Respiratory Pattern Regular Regular Blood Pressure Blood Pressure [Right Arm] 112/79 135/92 Blood Pressure Mean Blood Pressure Mean [Right Arm] 90 106 Pulse Oximetry 96 96 Oxygen Delivery Method Room Air Room Air Sepsis Recent Fever Within 48 Hours Sepsis New/Unexplained Change in Mental Status Sepsis Action Taken by Nursing VITAL SIGNS - Vital signs and nursing notes were reviewed. GENERAL -44-year-old female appearing her stated age who is in no acute distress. Communicates well with provider and answers questions appropriately. Patient's significant other at bedside. HEAD - NC/AT. EYES - PERRL with EOMI bilaterally. Conjunctiva pink and moist with no injection noted. LUNGS - Chest wall symmetric without accessory muscle use, intercostals retractions, or central cyanosis. Breath sounds clear throughout all hi. No wheezes, rales, or rhonchi appreciated. CARDIAC - RRR with S1/S2. No murmur, rubs, or gallops appreciated. ABDOMEN - Abdominal contour without pulsations or visible masses. Bowel sounds hypoactive in all four quadrants. No increased tenderness to palpation appreciated, patient just notes generalized pain throughout. No palpable masses, hepatosplenomegaly, or ascites noted. NEUROLOGIC - Sensory intact to light touch throughout. PSYCH - A&Ox3 and cooperates fully with examiner. Pt is very pleasant and interacts well with examiner. Course Administered Medications Acetaminophen (Acetaminophen 325 Mg Tab) 650 mg PO Q4H PRN PRN Reason: pain/fever Stop: 04/26/24 11:50 Last Admin: 03/27/24 17:39 Dose: 650 mg Documented By: JIM Apixaban (Apixaban 5 Mg Tablet) 5 mg PO BID [facility] Stop: 04/26/24 20:59 Last Admin: 03/28/24 08:16 Dose: 5 mg Documented By: Admin: 03/27/24 21:06 Dose: 5 mg Documented By: LASHAUN Escitalopram Oxalate (Escitalopram Oxalate 20 Mg Tab) 20 mg PO QAM [facility] Stop: 04/27/24 08:59 Last Admin: 03/28/24 08:14 Dose: 20 mg Documented By: JIM Famotidine (Famotidine 20 Mg Tab) 20 mg PO BID [facility] Stop: 04/26/24 20:59 Last Admin: 03/28/24 08:14 Dose: 20 mg Documented By: Admin: 03/27/24 21:06 Dose: 20 mg Documented By: LASHAUN Fluconazole (Fluconazole 100 Mg Tab) 200 mg PO DAILY [facility] Stop: 04/27/24 08:59 Last Admin: 03/28/24 08:14 Dose: 200 mg Documented By: JIM Promethazine HCl (Phenergan) 6.25 mg in 50.25 mls @ 201 mls/hr IV Q6H PRN PRN Reason: Nausea And Vomiting Stop: 04/26/24 11:50 Last Infusion: 03/27/24 14:06 Dose: Infused Documented By: Admin: 03/27/24 13:34 Dose: 201 mls/hr Documented By: ZONIA Prochlorperazine 5 mg/ Syringe 5 mls @ 5 mls/min IV Q6H PRN PRN Reason: Nausea And Vomiting Stop: 04/26/24 11:50 Last Admin: 03/27/24 16:32 Dose: 5 mls/min Documented By: JIM Lorazepam (Lorazepam 2 Mg/1 Ml Vial) 1 mg IV Q8H PRN PRN Reason: Anxiety/Agitation Stop: 04/26/24 11:50 Last Admin: 03/28/24 08:23 Dose: 1 mg Documented By: Admin: 12/20/24 22:01 Dose: 1 mg Documented By: LASHAUN Discontinued Medications Sodium Chloride (Nss) 500 mls @ 999 mls/hr IV .Q31M ONE Stop: 03/27/24 07:55 Last Infusion: 03/27/24 08:24 Dose: Infused Documented By: Admin: 03/27/24 07:32 Dose: 999 mls/hr Documented By: ZONIA Promethazine HCl (Phenergan) 12.5 mg in 50.5 mls @ 202 mls/hr IV NOW STA Stop: 03/27/24 08:08 Last Infusion: 03/27/24 08:24 Dose: Infused Documented By: Admin: 03/27/24 08:06 Dose: 202 mls/hr Documented By: ZONIA Promethazine HCl (Phenergan) 6.25 mg in 50.25 mls @ 201 mls/hr IV NOW STA Stop: 03/27/24 11:04 Last Admin: 03/27/24 10:55 Dose: Not Given Documented By: ZONIA Prochlorperazine 5 mg/ Syringe 5 mls @ 5 mls/min IV ONE ONE Stop: 03/27/24 11:16 Last Admin: 03/27/24 11:22 Dose: 5 mls/min Documented By: ZONIA Sodium Chloride (Nss) 1,000 mls @ 125 mls/hr IV .Q8H [place] Stop: 03/28/24 11:50 Last Admin: 03/28/24 05:51 Dose: 125 mls/hr Documented By: Infusion: 03/28/24 05:06 Dose: Infused Documented By: Admin: 03/27/24 21:06 Dose: 125 mls/hr Documented By: Infusion: 03/27/24 21:06 Dose: Infused Documented By: Admin: 03/27/24 13:10 Dose: 125 mls/hr Documented By: ANGELITA Ioversol (Optiray 320 100ml) 94 ml IV ONCE ONE Stop: 03/27/24 08:21 Last Admin: 03/27/24 08:20 Dose: 94 ml Documented By: MARIE Lorazepam (Lorazepam 2 Mg/1 Ml Vial) 0.5 mg IV NOW STA Stop: 03/27/24 09:50 Last Admin: 03/27/24 09:59 Dose: 0.5 mg Documented By: ZONIA Lorazepam (Lorazepam 2 Mg/1 Ml Vial) 0.5 mg IV NOW STA Stop: 03/27/24 10:47 Last Admin: 03/27/24 11:22 Dose: 0.5 mg Documented By: ZONIA Ondansetron HCl (Ondansetron Inj 2 Mg/Ml 2 Ml Vial) 4 mg IV NOW STA Stop: 03/27/24 07:22 Last Admin: 03/27/24 07:32 Dose: 4 mg Documented By: ZONIA Prochlorperazine (Prochlorperazine 5 Mg/Ml 2 Ml Vial) Confirm Administered Dose 10 mg .ROUTE .STK-MED ONE Stop: 03/27/24 11:19 Last Admin: 03/27/24 11:22 Dose: Not Given Documented By: ZONIA Medical Decision Making Differential Diagnosis Differential diagnoses includes gastritis, gastroenteritis, IBS, small bowel obstruction, pancreatitis, peritonitis, constipation, abdominal abcess, among others. Medical Records Attestation: I reviewed the patient's medical records. Home Medications was personally reviewed by me Laboratory Data Attestation: I reviewed the patient's lab results. 03/28/24 05:46 03/28/24 05:46 Lab Results 03/27/24 Range/Units 07:12 WBC 8.20 (4.8-10.8) K/ul RBC 4.47 (4.20-5.40) M/uL Hgb 10.7 L (12.0-16.0) g/dl Hct 34.6 L (37.0-47.0) % MCV 77.4 L (80.0-100.0) fL MCH 23.9 L (25.0-34.0) pg MCHC 30.9 L (32.0-36.0) g/dL RDW Std Deviation 51.8 H (36.4-46.3) fL RDW Coeff of Mita 19.0 H (11.5-14.5) % Plt Count 282 (130-400) K/uL MPV 9.3 L (9.4-12.4) fL Immature Gran % (Auto) 0.4 % Neut % (Auto) 70.9 % Lymph % (Auto) 18.4 % [place] % (Auto) 5.4 % Eos % (Auto) 4.4 % Baso % (Auto) 0.5 % Neut # (Auto) 5.82 (1.40-6.50) K/uL Lymph # (Auto) 1.51 (1.20-3.40) K/uL [place] # (Auto) 0.44 (0.11-0.59) K/uL Eos # (Auto) 0.36 (0.00-0.50) K/uL Baso # (Auto) 0.04 (0.00-0.20) K/uL Immature Gran # (Auto) 0.03 (0.01-0.20) K/uL Sodium 140 (136-145) mmol/L Potassium 4.0 (3.5-5.1) mmol/L Chloride 107 (98-107) mmol/L Carbon Dioxide 25 (21-32) mmol/L Anion Gap 8 (3-11) BUN 16 (6-23) mg/dl Creatinine 0.66 (0.6-1.2) mg/dl Est Cr Clr Drug Dosing 111.2 ml/min eGFR 111.55 BUN/Creatinine Ratio 24.2 H (10-20) Glucose 118 H (70-99(Fasting)) mg/dl Calcium 9.2 (8.6-10.3) mg/dl Total Bilirubin 0.5 (0.2-1.0) mg/dl AST 16 (13-39) U/L ALT 13 (7-52) U/L Alkaline Phosphatase 65 (34-104) U/L Total Protein 7.6 (6.0-8.3) gm/dl Albumin 4.4 (3.4-5.0) gm/dl Globulin 3.2 (2.5-4.0) gm/dl Albumin/Globulin Ratio 1.4 (0.9-2) Lipase 39 (11-82) U/L HCG, Qual Negative (Negative) Imaging Data Radiologist's Impression: Abdomen/Pelvis CT 03/27/24 07:[address] WITH IV CONTRAST CT DOSE: 1308.41 mGy.cm HISTORY: Acute generalized abdominal pain with nausea and vomiting. History of colon cancer, prior sigmoid resection with descending colostomy. abdominal pain, vomiting TECHNIQUE: Multiaxial CT images of the abdomen and pelvis were performed following the IV administration of 94 cc of Optiray, A dose lowering technique was utilized adhering to the principles of ALARA. COMPARISON STUDY: PET CT 03/12/2024, CT abdomen and pelvis 02/04/2024 FINDINGS: Partially imaged [id number] catheter noted within the right atrium. The lung bases appear generally clear with mild left basilar scarring. No pneumatosis or pneumoperitoneum. Unremarkable spleen, pancreas, gallbladder and adrenal glands. 2.4 cm right hepatic lobe lesion on image 47 is stable in size. The additional previously described hepatic metastasis better seen on prior PET/CT. Previously noted peritoneal implant near the splenic hilum is not well- visualized. Unremarkable kidneys without hydronephrosis. 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 Decompressed urinary bladder with mild wall thickening. Aorta and IVC are within normal limits. No lymphadenopathy. Heterogeneity of the uterus with indeterminate enhancing 7 mm lesion on image 281. Probable involuting left ovarian follicle measuring 2 cm. 4.4 cm left ovarian cyst is similar to prior. Distal esophageal wall thickening. Postoperative changes of the stomach. Prior sigmoid resection with descending colostomy. There is trace ascites within the abdomen and pelvis. Subcentimeter peritoneal carcinomatosis of the abdomen and pelvis redemonstrated. Several loops of fluid-filled small bowel measuring up to 2.5 cm. Transition point within the right hemipelvis, image 230 with distal decompressed loops. The large bowel is decompressed as well. Probable serosal implants in the abdomen and pelvis. No acute fracture or destructive bone lesion. IMPRESSION: 1. Prior sigmoid colon resection with descending colostomy. Borderline dilated air and fluid-filled loops of small bowel with transition point in the abdominal right lower quadrant is suggestive of at least a partial small bowel obstruction which is likely from adhesions versus serosal/peritoneal implants. 2. Hepatic and peritoneal metastatic disease redemonstrated. 3. Trace ascites. 4. Additional findings as above. ACT 112: Negative or not required by law. The above report was generated using voice recognition software. It may contain grammatical, syntax or spelling errors. Electronically signed by: Jonn Li M.D. 03/27/2024 9:07 AM MDM Narrative Patient is a 44-year-old female who presents to the emergency department with complaints of abdominal pain and vomiting since midnight. Patient states that yesterday she a hot dog that was left out on the counter all day and approximately 2 hours after eating that she was having uncontrolled vomiting. Patient states that at this point she is just vomiting bile. Patient states that when she tries to keep fluids down she still vomiting. Patient does have a history of colon cancer and colostomy placement. Patient states that she had her last chemo treatment last Saturday and is scheduled to have another this Saturday. Patient denies any chest pain or shortness of breath at this time. Patient was evaluated by myself and findings were noted in physical exam above. Patient was ordered IV placement, lab work, EKG, urinalysis, and a CT of the abdomen pelvis. Patient's lab work resulted and was unremarkable. Patient has a normal white blood cell count of 8.20. Patient does present slightly anemic with a hemoglobin of 10.7 and hematocrit of 34.6, however that appears to trend with the patient's baseline. Patient's urinalysis was not collected yet at this time. Patient had a CT of the abdomen and pelvis completed that was interpreted by radiology to show her prior sigmoid colon resection with descending colostomy and what appeared to be a small bowel obstruction which is likely from adhesions. Patient also had some trace ascites noted on her CT as well. I spoke with Spencer who is on-call for general surgery and reviewed the patient's presentation, imaging and lab results and chief complaint with her. She verbalized that they would see the patient in the department and consult on the case however because of her medical history recommend her being admitted by medicine. [facility]. I spoke with [facility] Vent[facility] and gave her report on the patient's case including her chief complaint, current presentation, imaging and lab results. Tere excepted the patient under their service for admission. [facility] for further evaluation and management of this patient. Impression Small bowel obstruction, Nausea & vomiting Discharge Plan Visit Data Chief Complaint: Vomiting Stated Complaint: VOMITING,ABD PAIN ED Provider: Beltran Yarbrough ED Midlevel Provider: Alyssa Hillman Discharge Problem: Small bowel obstruction, Nausea & vomiting Patient Disposition: Admitted As Inpatient Discharge Instructions Interventions: ED Discharge Assessment Last Done: 03/27/24 11:51 Discharge Problem: Nausea & vomiting Qualifiers: Vomiting type: unspecified Qualified Code(s): R11.2 - Nausea with vomiting, unspecified
[2024-03-27 07:38] LABS: Pregnancy Test, Serum Negative (Negative)
[2024-03-27 07:43] LABS: Albumin Globulin Ratio 1.4 (0.9-2); Albumin Level 4.4 gm/dl (3.4-5.0); BUN Creatinine Ratio 24.2 (10-20); Bilirubin,Total 0.5 mg/dl (0.2-1.0); Calcium 9.2 mg/dl (8.6-10.3); Creatinine Clr Calc Pharmacy 111.2 ml/min; Globulin 3.2 gm/dl (2.5-4.0); Total Protein 7.6 gm/dl (6.0-8.3)
[2024-03-27] MEDS: PROMETHAZINE 12.5 MG/50.5 ML BAG IV STA (08:06)
[2024-03-27] MEDS: OPTIRAY 320 100ml IV ONE (08:20)
--- NOTE | 2024-03-27 09:09 | CT Scan Report ---
ABDOMEN AND PELVIS CT WITH IV CONTRAST CT DOSE: 1308.41 mGy.cm HISTORY: Acute generalized abdominal pain with nausea and vomiting. History of colon cancer, prior si gmoid resection with descending colostomy. abdominal pain, vomiting TECHNIQUE: Multiaxial CT images of the abdomen and pelvis were performed following the IV administrat ion of 94 cc of Optiray, A dose lowering technique was utilized adhering to the principles of ALARA. COMPARISON STUDY: PET CT 03/12/2024, CT abdomen and pelvis 02/04/2024 FINDINGS: Partially imaged [id number] catheter noted within the right atrium. The lung bases appea r generally clear with mild left basilar scarring. No pneumatosis or pneumoperitoneum. Unremarkable s pleen, pancreas, gallbladder and adrenal glands. 2.4 cm right hepatic lobe lesion on image 47 is stab le in size. The additional previously described hepatic metastasis better seen on prior PET/CT. Previ ously noted peritoneal implant near the splenic hilum is not well-visualized. Unremarkable kidneys without hydronephrosis. 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 Dec[place] mpressed urinary bladder with mild wall thickening. Aorta and IVC are within normal limits. No lympha denopathy. Heterogeneity of the uterus with indeterminate enhancing 7 mm lesion on image 281. Probabl e involuting left ovarian follicle measuring 2 cm. 4.4 cm left ovarian cyst is similar to prior. Distal esophageal wall thickening. Postoperative changes of the stomach. Prior sigmoid resection with descending colostomy. There is trace ascites within the abdomen and pelvis. Subcentimeter peritoneal carcinomatosis of the abdomen and pelvis redemonstrated. Several loops of fluid-filled small bowel m easuring up to 2.5 cm. Transition point within the right hemipelvis, image 230 with distal decompress ed loops. The large bowel is decompressed as well. Probable serosal implants in the abdomen and pelvi s. No acute fracture or destructive bone lesion. IMPRESSION: 1. Prior sigmoid colon resection with descending colostomy. Borderline dilated air and fluid-filled l oops of small bowel with transition point in the abdominal right lower quadrant is suggestive of at l east a partial small bowel obstruction which is likely from adhesions versus serosal/peritoneal impla nts. 2. Hepatic and peritoneal metastatic disease redemonstrated. 3. Trace ascites. 4. Additional findings as above. ACT 112: Negative or not required by law. The above report was generated using voice recognition software. It may contain grammatical, syntax o r spelling errors. Electronically signed by: Jonn Li M.D. 03/27/2024 9:07 AM
[2024-03-27] MEDS: LORazepam 2 MG/1 ML VIAL IV STA ×2 (09:59→11:22)
--- NOTE | 2024-03-27 10:09 | Surgery Consultation ---
Date of Consultation March 27, 2024 Assessment & Plan (1) Partial small bowel obstruction: Partial SBO , hx of sigmoid resection with colostomy formation 02/04/24, ostomy revision 02/06/24 VSS, no wbc elevation abd soft , non distended ostomy bag without stool at this time recommending admission to medicine NPO , bowel rest IV fluids hydration IV antiemetic PRN IV analgesic PRN Discussed with pt NGT insertion if ongoing emesis, Pt would like to defer NGT at this time Pt seen and examined with Dr. Naylor Will follow along History of Present Illness Reason for Consultation: partial SBO Requesting Physician: Alyssa Hillman History of Present Illness Patient is a 44 yo female with PMH of metastatic colon CA (liver, peritoneum), anxiety with panic attacks, PE, DVT, gastric bypass, s/p sigmoid resection and colostomy this year, presents with c/o of abdominal pain, nausea and vomiting that started last night at [place]. Pt reports she has been getting good stool o/p from ostomy site, denies bloating. A CT scan in the ER is showing concerns for a partial SBO. Pt report since last admission she has underwent one treatment of chemotherapy and has an appointment next week in [place] she would like to attend if possible. Allergies Allergy/AdvReac Type Severity Reaction Status Date / Time No Known Allergies Allergy Verified 03/03/24 12:30 Home Medications Medication Instructions Recorded Confirmed Type lorazepam 0.5 mg tablet (Ativan) 0.5 mg PO BID PRN anxiety #30 tabs 02/13/24 03/27/24 Rx famotidine 20 mg tablet 20 mg PO BID Acid Reflux 03/03/24 03/27/24 History apixaban 5 mg tablet (Eliquis) 5 mg PO BID 03/27/24 03/27/24 History escitalopram oxalate 20 mg tablet 20 mg PO QAM 03/27/24 03/27/24 History fluconazole 200 mg tablet 200 mg PO DAILY 03/27/24 03/27/24 History ondansetron HCl 8 mg tablet 8 mg PO Q8H PRN Nausea 03/27/24 03/27/24 History prochlorperazine maleate 10 mg 10 mg PO Q6H PRN n/v 03/27/24 03/27/24 History tablet Patient History Medical History Peritonitis Abdominal pain Acute diverticulitis History of Clostridium difficile infection diagnosed 02/09/24 while admitted in hospital - treated with Vancomycin until 02/27/24 Colostomy present done 02/04/24 stoma revised 02/06/24 with an additional 4.5cm of the colon removed History of diverticulitis history of multiple flares over the past year Hx of deep venous thrombosis (2010) - s/p childbirth in 2010- was on blood thinner for short time - no DVT noted with PE on 02/16/24 Hx of migraines History of panic attacks History of pulmonary embolism dx 02/16/24 at [place]>started on Eliquis provoked by malignancy and surgical intervention per records dopplers negative for DVT Adenocarcinoma of colon dx'ed 01/2024 Perforated sigmoid colon - 02/03/24 due to enlarging mass (adenocarcinoma of the colon) - 02/04/24 underwent partial left colon resection and end colostomy Depression with anxiety Surgical History Port-A-Cath in place (03/13/24) Insertion of Access Port with Fluoroscopy into Right Internal Jugular Vein(Right) - Elizabeth Velasquez DO [place] teeth removed H/O abdominal surgery (02/05/24) Exploratory Laparoscopy Revision of Colostomy and Stoma(Not Applicable) - Elizabeth Velasquez DO History of x 2 H/O gastric sleeve (2021) History of colon resection (02/04/24) p Diagnostic Laparoscopy, with a laparoscopic colon resection, Abdominal Wash Out, Creation Colostomy(Not Applicable) - Elizabeth Velasquez DO Extensive lysis of adhesions Family History Other No family history of adverse response to anesthesia Social History Smoking Status: Never smoker Second Hand Exposure: No; Do You Dip or Chew Tobacco: No; Hx Alcohol Use: No Hx Substance Use: No Preferred Language: Ugandan Communication Ability: Effective Visual Impairment: No Limitations Oracle Bpm Developer Required: No Beliefs That Will Affect Care: None Current Living Situation: Spouse Other Information That Helps Us Care for You: No Feels Safe at Home: Yes Safety Concerns: Feels Safe At This Time Assistive Devices: None Review of Systems Constitutional: no fever and no chills Gastrointestinal: + abdominal pain, + nausea and + vomitin g; no change in bowel habits Musculoskeletal: no muscle weakness Psychiatric: + anxiety Physical Exam Constitutional: cooperative and comfortable; no acute distress Respiratory: normal respiratory effort; no respiratory distress Cardiovascular: Rate/Rhythm: regular rate Gastrointestinal (Abdomen): Inspection/Auscultation: abdomen not distended Percussion/Palpation: + abdomen tender and abdomen soft Psychiatric: Orientation: alert and oriented x 3 Results & Data Vital Signs (Past 12 Hours) Vital Signs Temp Pulse Pulse Resp BP BP Pulse Ox 03/27/24 09:00 77 18 112/79 96 03/27/24 08:22 81 03/27/24 08:00 83 18 152/94 H 95 03/27/24 06:47 98.4 F 103 H 18 115/88 98 O2 Del Method 03/27/24 09:00 Room Air 03/27/24 08:22 03/27/24 08:00 Room Air 03/27/24 06:47 Room Air Diagnostic Findings [place] [phone] CT Scan Report Patient: ANDREA MCBRIDE Admit Date: 03/27/24 MR#: [id number] Address1: [address] [place] [address] Acct ID:[id number] Address2: Date: 1980 [facility] Zip: [place] [address] Age: 44 Location: ED Sex: F Room/Bed: Att Phy: Diagnosis: VOMITING,ABD PAIN Marialuisa Phy: Annie Ch DO Service Date: 03/27/24 [facility] Phy: Interpreting Phy: Jonn Kumar Phy: Ordering Phy: Alyssa Hillman CRNP cc: ~ ABDOMEN AND PELVIS CT WITH IV CONTRAST CT DOSE: 1308.41 mGy.cm HISTORY: Acute generalized abdominal pain with nausea and vomiting. History of colon cancer, prior sigmoid resection with descending colostomy. abdominal pain, vomiting TECHNIQUE: Multiaxial CT images of the abdomen and pelvis were performed following the IV administration of 94 cc of Optiray, A dose lowering technique was utilized adhering to the principles of ALARA. COMPARISON STUDY: PET CT 03/12/2024, CT abdomen and pelvis 02/04/2024 FINDINGS: Partially imaged [id number] catheter noted within the right atrium. The lung bases appear generally clear with mild left basilar scarring. No pneumatosis or pneumoperitoneum. Unremarkable spleen, pancreas, gallbladder and adrenal glands. 2.4 cm right hepatic lobe lesion on image 47 is stable in size. The additional previously described hepatic metastasis better seen on prior PET/CT. Previously noted peritoneal implant near the splenic hilum is not well- visualized. Unremarkable kidneys without hydronephrosis. 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 Decompressed urinary bladder with mild wall thickening. Aorta and IVC are within normal limits. No lymphadenopathy. Heterogeneity of the uterus with indeterminate enhancing 7 mm lesion on image 281. Probable involuting left ovarian follicle measuring 2 cm. 4.4 cm left ovarian cyst is similar to prior. Distal esophageal wall thickening. Postoperative changes of the stomach. Prior sigmoid resection with descending colostomy. There is trace ascites within the abdomen and pelvis. Subcentimeter peritoneal carcinomatosis of the abdomen and pelvis redemonstrated. Several loops of fluid-filled small bowel measuring up to 2.5 cm. Transition point within the right hemipelvis, image 230 with distal decompressed loops. The large bowel is decompressed as well. Probable serosal implants in the abdomen and pelvis. No acute fracture or destructive bone lesion. IMPRESSION: 1. Prior sigmoid colon resection with descending colostomy. Borderline dilated air and fluid-filled loops of small bowel with transition point in the abdominal right lower quadrant is suggestive of at least a partial small bowel obstruction which is likely from adhesions versus serosal/peritoneal implants. 2. Hepatic and peritoneal metastatic disease redemonstrated. 3. Trace ascites. 4. Additional findings as above. ACT 112: Negative or not required by law. The above report was generated using voice recognition software. It may contain grammatical, syntax or spelling errors. Electronically signed by: Jonn Li M.D. 03/27/2024 9:07 AM Dictated: 03/27/24 0845 Transcribed: 03/27/24 0849 Results CBC w Diff Results: RBC 3.53 M/uL (4.20-5.40) L 03/28/24 WBC 4.25 K/ul (4.8-10.8) L 03/28/24 Hgb 8.6 g/dl (12.0-16.0) L 03/28/24 Hct 27.7 % (37.0-47.0) L 03/28/24 MCV 78.5 fL (80.0-100.0) L 03/28/24 MCH 24.4 pg (25.0-34.0) L 03/28/24 MCHC 31.0 g/dL (32.0-36.0) L 03/28/24 RDW Standard Deviation 54.0 fL (36.4-46.3) H 03/28/24 RDW Coefficient of Variation 19.1 % (11.5-14.5) H 03/28/24 Plt Count 182 K/uL (130-400) 03/28/24 MPV 9.5 fL (9.4-12.4) 03/28/24 Nucleated Red Blood Cells % (auto) 0.2 % 02/07 Nucleated RBC Absolute Count (auto) 0.02 K/uL (0.00-0.12) 1 04/09/23 Neutrophils (%) (Auto) 70.9 % 03/27/24 Lymphocytes (%) (Auto) 18.4 % 03/27/24 Monocytes # (Auto) 0.44 K/uL (0.11-0.59) 03/27/24 Eosinophils # (Auto) 0.36 K/uL (0.00-0.50) 03/27/24 Immature Granulocyte % (Auto) 0.4 % 03/27/24 Neutrophils # (Auto) 5.82 K/uL (1.40-6.50) 03/27/24 Lymphocytes # (Auto) 1.51 K/uL (1.20-3.40) 03/27/24 Monocytes # (Auto) 0.44 K/uL (0.11-0.59) 03/27/24 Eosinophils # (Auto) 0.36 K/uL (0.00-0.50) 03/27/24 Basophils # (Auto) 0.04 K/uL (0.00-0.20) 03/27/24 Immature Granulocyte # (Auto) 0.03 K/uL (0.01-0.20) 4 Polychromasia 1+ 11/03/24 Echinocytes 1+ 02/06/24 Ovalocytes 1+ 02/06/24 PG Care Time/CCT Total # of Minutes Spent Total Time Spent with Patient: Total time spent is greater than 50% in coordination of care (as documented) at patient's floor/unit and/or counseling patient: Coding Level of Care Code 63533 IN/OBS CONSULT LVL 2,35M Diagnoses Partial small bowel obstruction K56.600
--- NOTE | 2024-03-27 10:33 | History & Physical Report ---
Date of Service March 27, 2024 Assessment & Plan (1) Partial small bowel obstruction: Plan: Admit to [facility] with telemetry Patient presenting from home with reports of abdominal pain, nausea, vomiting. In the ED, CT ABD/pelvis showing evidence of partial small bowel obstruction General surgery consulted - conservative management for now with bowel rest, IVF, pain and nausea control (2) Adenocarcinoma of colon: Plan: Diagnosed January 2024 with mets to liver and peritoneum In the setting of perforation s/p colostomy Follows with Dr. 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 Das. I spent a total of 75 minutes coordinating, documenting, and providing care for this patient excluding time spent in the performance of separately billed services. This included personally reviewing all current laboratories and imaging studies, medication reconciliation, outpatient chart review, and discussion with specialists. History of Present Illness Chief Complaint: abdominal pain Primary Care Provider: Annie Ch DO 44-year-old female with PMH recently diagnosed metastatic colon adenocarcinoma (mets to liver and peritoneum), perforated diverticulitis/ adenocarcinoma s/p colostomy on 02/05, pulmonary embolism anticoagulated on Eliquis, C. difficile s/p treatment, and other problems listed below who presents to the ED for evaluation of abdominal pain. Patient reports she woke up around midnight with mid abdominal pain. Describes the pain as a cramping. States she had associated nausea and vomiting. No hematemesis or coffee-ground emesis. Patient reports her first dose of chemotherapy was on 03/17. Reports she tolerated her first dose well. States that she has had normal colostomy output. No fevers or chills. She denies chest pain and shortness of breath. No lightheadedness, dizziness, diaphoresis, syncopal events. No urinary symptoms. In the ED, CT ABD/pelvis is showing a partial small bowel obstruction. Patient was given IVF, IV Zofran, IV Phenergan. Also reporting increased anxiety and received IV lorazepam. Allergies Allergy/AdvReac Type Severity Reaction Status Date / Time No Known Allergies Allergy Verified 03/03/24 12:30 Home Medications Medication Instructions Recorded Confirmed Type lorazepam 0.5 mg tablet (Ativan) 0.5 mg PO BID PRN anxiety #30 tabs 02/13/24 03/27/24 Rx famotidine 20 mg tablet 20 mg PO BID Acid Reflux 03/03/24 03/27/24 History apixaban 5 mg tablet (Eliquis) 5 mg PO BID 03/27/24 03/27/24 History escitalopram oxalate 20 mg tablet 20 mg PO QAM 03/27/24 03/27/24 History fluconazole 200 mg tablet 200 mg PO DAILY 03/27/24 03/27/24 History ondansetron HCl 8 mg tablet 8 mg PO Q8H PRN Nausea 03/27/24 03/27/24 History prochlorperazine maleate 10 mg 10 mg PO Q6H PRN n/v 03/27/24 03/27/24 History tablet Past Med/Surg History Problem List Nausea & vomiting (Acute) Small bowel obstruction (Acute) Partial small bowel obstruction Encounter for pre-operative examination Pulmonary embolism (Acute) 02/16/24- on Eliquis Status post exploratory laparotomy Adenocarcinoma, colon Panic attack due to exceptional stress Adjustment disorder with anxious mood Anemia (Acute) Gastric bypass status for obesity Medical History Peritonitis Abdominal pain Acute diverticulitis History of Clostridium difficile infection diagnosed 02/09/24 while admitted in hospital - treated with Vancomycin until 02/27/24 Colostomy present done 02/04/24 stoma revised 02/06/24 with an additional 4.5cm of the colon removed History of diverticulitis history of multiple flares over the past year Hx of deep venous thrombosis (2010) - s/p childbirth in 2010- was on blood thinner for short time - no DVT noted with PE on 02/16/24 Hx of migraines History of panic attacks History of pulmonary embolism dx 02/16/24 at [place]>started on Eliquis provoked by malignancy and surgical intervention per records dopplers negative for DVT Adenocarcinoma of colon dx'ed 01/2024 Perforated sigmoid colon - 02/03/24 due to enlarging mass (adenocarcinoma of the colon) - 02/04/24 underwent partial left colon resection and end colostomy Depression with anxiety Surgical History Port-A-Cath in place (03/13/24) Insertion of Access Port with Fluoroscopy into Right Internal Jugular Vein(Right) - Elizabeth Velasquez DO [place] teeth removed H/O abdominal surgery (02/05/24) Exploratory Laparoscopy Revision of Colostomy and Stoma(Not Applicable) - Elizabeth Velasquez DO History of x 2 H/O gastric sleeve (2021) History of colon resection (02/04/24) p Diagnostic Laparoscopy, with a laparoscopic colon resection, Abdominal Wash Out, Creation Colostomy(Not Applicable) - Elizabeth Velasquez DO Extensive lysis of adhesions Family History Other No family history of adverse response to anesthesia Social History Smoking Status: Never smoker Second Hand Exposure: No; Do You Dip or Chew Tobacco: No; Hx Alcohol Use: No Preferred Language: Syriac Communication Ability: Effective Visual Impairment: No Limitations Supply Crib Attendant Required: No Beliefs That Will Affect Care: None Current Living Situation: Family Feels Safe at Home: Yes Assistive Devices: None Physical Exam Constitutional: WD/WN, vitals as above no acute distress Eyes: PERRL, conjunctivae normal, anicteric sclerae ENMT: external ear and nose normal, oropharynx normal Respiratory: normal respiratory effort, lungs clear to auscultation Cardiovascular: Rate/Rhythm: regular rate and regular rhythm Vessels: normal peripheral pulses Extremities: no edema Gastrointestinal (Abdomen): normal bowel sounds, soft, nontender, no hepatosplenomegaly Musculoskeletal: no cyanosis or clubbing, extremities motor strength 5/5 Skin: no rashes, warm and dry Neurologic: PERRL, EOMI, accommodation nl, no face palsy, no dysarthria Psychiatric: A+Ox3, euthymic affect Results & Data Results & Data Vital Signs (Past 12 Hours) Vital Signs Temp Pulse Pulse Resp BP BP Pulse Ox 03/27/24 10:00 97 H 18 135/92 96 12/20/24 09:00 77 18 112/79 96 03/27/24 08:22 81 03/27/24 08:00 83 18 152/94 H 95 03/27/24 06:47 36.9 C 103 H 18 115/88 98 O2 Del Method 03/27/24 10:00 Room Air 03/27/24 09:00 Room Air 03/27/24 08:22 03/27/24 08:00 Room Air 03/27/24 06:47 Room Air Laboratory Results Short CBC 03/27/24 Range/Units 07:12 WBC 8.20 (4.8-10.8) K/ul Hgb 10.7 L (12.0-16.0) g/dl Hct 34.6 L (37.0-47.0) % Plt Count 282 (130-400) K/uL BMP 03/27/24 07:12 Sodium 140 Potassium 4.0 Chloride 107 Carbon Dioxide 25 BUN 16 Creatinine 0.66 Glucose 118 H Calcium 9.2 Liver Function 03/27/24 Range/Units 07:12 Total Bilirubin 0.5 (0.2-1.0) mg/dl AST 16 (13-39) U/L ALT 13 (7-52) U/L Alkaline Phosphatase 65 (34-104) U/L Albumin 4.4 (3.4-5.0) gm/dl Diagnostic Findings Laboratory Results WBC 8.20 K/ul (4.8-10.8) 03/27/24 07:12 RBC 4.47 M/uL (4.20-5.40) 03/27/24 07:12 Hgb 10.7 g/dl (12.0-16.0) L 03/27/24 07:12 Hct 34.6 % (37.0-47.0) L 03/27/24 07:12 MCV 77.4 fL (80.0-100.0) L 03/27/24 07:12 MCH 23.9 pg (25.0-34.0) L 03/27/24 07:12 MCHC 30.9 g/dL (32.0-36.0) L 03/27/24 07:12 RDW Std Deviation 51.8 fL (36.4-46.3) H 03/27/24 07:12 RDW Coeff of Mita 19.0 % (11.5-14.5) H 03/27/24 07:12 Plt Count 282 K/uL (130-400) 03/27/24 07:12 MPV 9.3 fL (9.4-12.4) L 03/27/24 07:12 Immature Gran % (Auto) 0.4 % 03/27/24 07:12 Neut % (Auto) 70.9 % 03/27/24 07:12 Lymph % (Auto) 18.4 % 03/27/24 07:12 [place] % (Auto) 5.4 % 03/27/24 07:12 Eos % (Auto) 4.4 % 03/27/24 07:12 Baso % (Auto) 0.5 % 03/27/24 07:12 Neut # (Auto) 5.82 K/uL (1.40-6.50) 03/27/24 07:12 Lymph # (Auto) 1.51 K/uL (1.20-3.40) 03/27/24 07:12 [place] # (Auto) 0.44 K/uL (0.11-0.59) 03/27/24 07:12 Eos # (Auto) 0.36 K/uL (0.00-0.50) 03/27/24 07:12 Baso # (Auto) 0.04 K/uL (0.00-0.20) 03/27/24 07:12 Immature Gran # (Auto) 0.03 K/uL (0.01-0.20) 03/27/24 07:12 Sodium 140 mmol/L (136-145) 03/27/24 07:12 Potassium 4.0 mmol/L (3.5-5.1) 03/27/24 07:12 Chloride 107 mmol/L (98-107) 03/27/24 07:12 Carbon Dioxide 25 mmol/L (21-32) 03/27/24 07:12 Anion Gap 8 (3-11) 03/27/24 07:12 BUN 16 mg/dl (6-23) 03/27/24 07:12 Creatinine 0.66 mg/dl (0.6-1.2) 03/27/24 07:12 Est Cr Clr Drug Dosing 111.2 ml/min 03/27/24 07:12 eGFR 111.55 03/27/24 07:12 BUN/Creatinine Ratio 24.2 (10-20) H 03/27/24 07:12 Glucose 118 mg/dl (70-99(Fasting)) H 03/27/24 07:12 Calcium 9.2 mg/dl (8.6-10.3) 03/27/24 07:12 Total Bilirubin 0.5 mg/dl (0.2-1.0) 03/27/24 07:12 AST 16 U/L (13-39) 03/27/24 07:12 ALT 13 U/L (7-52) 03/27/24 07:12 Alkaline Phosphatase 65 U/L (34-104) 03/27/24 07:12 Total Protein 7.6 gm/dl (6.0-8.3) 03/27/24 07:12 Albumin 4.4 gm/dl (3.4-5.0) 03/27/24 07:12 Globulin 3.2 gm/dl (2.5-4.0) 03/27/24 07:12 Albumin/Globulin Ratio 1.4 (0.9-2) 03/27/24 07:12 Lipase 39 U/L (11-82) 03/27/24 07:12 HCG, Qual Negative (Negative) 03/27/24 07:12 Impressions Abdomen/Pelvis CT 03/27/24 07:[address] WITH IV CONTRAST CT DOSE: 1308.41 mGy.cm HISTORY: Acute generalized abdominal pain with nausea and vomiting. History of colon cancer, prior sigmoid resection with descending colostomy. abdominal pain, vomiting TECHNIQUE: Multiaxial CT images of the abdomen and pelvis were performed following the IV administration of 94 cc of Optiray, A dose lowering technique was utilized adhering to the principles of ALARA. COMPARISON STUDY: PET CT 03/12/2024, CT abdomen and pelvis 02/04/2024 FINDINGS: Partially imaged [id number] catheter noted within the right atrium. The lung bases appear generally clear with mild left basilar scarring. No pneumatosis or pneumoperitoneum. Unremarkable spleen, pancreas, gallbladder and adrenal glands. 2.4 cm right hepatic lobe lesion on image 47 is stable in size. The additional previously described hepatic metastasis better seen on prior PET/CT. Previously noted peritoneal implant near the splenic hilum is not well- visualized. Unremarkable kidneys without hydronephrosis. 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 Decompressed urinary bladder with mild wall thickening. Aorta and IVC are within normal limits. No lymphadenopathy. Heterogeneity of the uterus with indeterminate enhancing 7 mm lesion on image 281. Probable involuting left ovarian follicle measuring 2 cm. 4.4 cm left ovarian cyst is similar to prior. Distal esophageal wall thickening. Postoperative changes of the stomach. Prior sigmoid resection with descending colostomy. There is trace ascites within the abdomen and pelvis. Subcentimeter peritoneal carcinomatosis of the abdomen and pelvis redemonstrated. Several loops of fluid-filled small bowel measuring up to 2.5 cm. Transition point within the right hemipelvis, image 230 with distal decompressed loops. The large bowel is decompressed as well. Probable serosal implants in the abdomen and pelvis. No acute fracture or destructive bone lesion. IMPRESSION: 1. Prior sigmoid colon resection with descending colostomy. Borderline dilated air and fluid-filled loops of small bowel with transition point in the abdominal right lower quadrant is suggestive of at least a partial small bowel obstruction which is likely from adhesions versus serosal/peritoneal implants. 2. Hepatic and peritoneal metastatic disease redemonstrated. 3. Trace ascites. 4. Additional findings as above. ACT 112: Negative or not required by law. The above report was generated using voice recognition software. It may contain grammatical, syntax or spelling errors. Electronically signed by: Jonn Li M.D. 03/27/2024 9:07 AM Supervising Physician Co-Signing Physician Notes Patient seen and examined Reports abd pain, nausea and vomiting that started last night Reports increased anxiety Exam notable for soft and tender abdomen, colostomy bag on left side Lab notable for Hb of 10.7 CT abd/pelvis noted partial SBO Keep NPO Pain control IV ativan prn for now while home po ativan is on hold Surg eval noted I spent a total of 35 minutes coordinating, documenting and providing care for this patient excluding time spent in performance of separately billed services (3) Pulmonary embolism Acute cor pulmonale presence: unspecified Chronicity: acute Pulmonary embolism type: unspecified Qualified Code(s): I26.99 - Other pulmonary embolism without acute cor pulmonale
[2024-03-27] MEDS: PROMETHAZINE 6.25 MG/50.25 ML BAG IV STA (10:55)
[2024-03-27] MEDS: PROCHLORPERAZINE 5 MG in SYRINGE 4 ML IV ONE (11:22)
[2024-03-27] MEDS: PROCHLORPERAZINE 5 MG/ML 2 ML VIAL ONE (11:22)
--- OUTSIDE RECORDS SUMMARY | 2024-03-27 12:08 | External Medical Summary | Summary of Care ---
Author Name Unknown Organization [facility] Address [address] [place] [address] Phone [phone] Care Team Providers Care Associate Professor Of Kinesiology Name Role Phone Annie Ch DO Primary Care Provider Reason for Visit * Reason Onset Date Comments Home Health 03/24/2024 Encounter Details Date Type Department Care Team (Late st Contact Info) Description 03/24/2024 Telephone Family Medicine [address] [place] [phone] Annie Ch DO [address] [place] [address] [place] [address] Home Health (/) Allergies Active Allergy Reactions Criticality Noted Date Comments Tetracycline Rash 02/02/2011 Noted when she was a child. documented as of this encounter (statuses as of 03/24/2024) Medications Ondansetron HCl 4 MG Oral Tablet (Zofran)Indicat ions:Diverticul itis of sigmoid colon Take 1 Tablet by mouth every 8 hours as needed for Nausea. 20 Tablet 4 Active Additional Information Patient taking differently: 8 mgOral Q8H PRN, Nausea, Reported on 03/20/2024 Famotidine 20 MG Oral Tablet (Pepcid) Take 1 Tablet by mouth in the morning and 1 Tablet before bedtime. 4 Active Vancomycin HCl 125 MG Oral Capsule (Vancocin) Take 1 Capsule by mouth every 6 hours. 4 Active Apixaban 5 MG Oral Tablet (Eliquis)Indica tions:History of pulmonary embolism Take 1 Tablet by mouth in the morning and 1 Tablet before bedtime. 60 Tablet 5 4 Active LORazepam 0.5 MG Oral Tablet (Ativan) Take 1 Tablet by mouth every 8 hours as needed for Anxiety or Insomnia. 30 Tablet 1 Active Escitalopram Oxalate 20 MG Oral Tablet (Lexapro) Take 1 Tablet by mouth in the morning. 90 Tablet 1 Active Prochlorperazin e Maleate 10 MG Oral Tablet (Compazine) Take 1 Tablet by mouth every 6 hours as needed for Nausea. Active documented as of this encounter (statuses as of 03/24/2024) Active Problems Problem Noted Date Diagnosed Date C. difficile colitis 02/28/2024 History of pulmonary embolism 02/28/2024 Malignant neoplasm of colon 02/28/2024 Iron deficiency anemia 02/28/2024 Colostomy status 02/28/2024 Anxiety and depression 02/28/2024 Diverticulitis of large inte mateo with abscess with bleeding 12/13/2023 documented as of this encounter (statuses as of 03/24/2024) Social History Tobacco Use Types Packs/Day Years Used Date Smoking Tobacco: Never Smokeless Tobacco: Never Alcohol Use Standard Drinks/Week Comments Never 0 (1 standard drink = 0.6 oz pur e alcohol) Comments No Sex and Gender Information Value Date Recorded Sex Assigned at Not on file Legal Sex Female 12:33 PM EST Gender Identity Not on file Sexual Orientation Not on file documented as of this encounter Miscellaneous Notes * Telephone Encounter - Annie Ch DO - 03/24/2024 4:21 PM EST Agree with social services coordinator referral. * Telephone Encounter - Barbara Fernandez LPN - 03/24/2024 2:22 PM EST HH Concerns Trena JOSEPH, Calling from: [facility] [place] Report/Concerns of: Referral Narrative: Trena calling in as she placing a referral for social services coordinator. Patient has 5 children, lives withher mom and step dad and recently started chemo. They would like to get her some extra support within the home. FYI to PCP [facility] Nurses documented in this encounter Plan of Treatment Upcoming Encounters Date Type Department Care Team (Late st Contact Info) Description 06/26/2024 12:30 PM EDT Office Visit [address] [phone] [place] [id number] 10/13/2024 2:50 PM EDT Office Visit [address] [place] [phone] [place] [phone] Scheduled Procedures Name Priority Associated Diagnoses Date/Ti me COLONOSCOPY FLEXIBLE PROXIMA L DIAGNOSTIC Recall Special screening for malignant neoplasms, colon Diverticulitis of colon Health Maintenance Due Date Last Done Comments Depression Monitoring 1993 HIV Screening 1996 Hepatitis B Vaccine (1 of 3 - 19+ 3-dose series) 2000 Pap Smear 2002 Cervical Cancer Screening 2011 HPV/Co-Test 2011 COVID-19 Vaccine ( season) 2023 Influenza Vaccine (FLU shot) (#1) 2023 05/23/2021, 01/03/2019, 01/03/2019, Additional history exists Mammogram 01/02/2025 01/03/2024, 06/09/2022, 09/11/2022, Additional history exists DTap/Tdap Vaccines (8 - Td or Tdap) 08/13/2026 08/13/2016, 01/20/2014, 01/22/2011, Additional history exists Diabetes Screening 02/23/2027 02/24/2024, 1 , 12/21/2023, Additional history exists Lipid Panel 03/18/2028 03/18/2023 Hepatitis C Screening Completed 08/13/2020 HPV (Gardasil) Vaccine Aged Out No lo nger eligible based on patient's age to complete this topic MENINGOCOCCAL (MENACTRA/MENVEO) Aged Out No longer eligible based on patient's age to complete this topic Pneumococcal Vaccine: Pediatrics (0 to 5 Years) and At-Risk Patients (6 to 64 Years) Aged Out No longer eligible based on patient's age to complete this topic documented as of this encounter Medical Devices Not on filedocumented as of this encounter Care Teams Associate Professor Of Kinesiology Relationship Specialty Start Date End Date Annie Ch DO [address] [place] [address] [place] [phone] PCP - General Internal Medicine 02/13/24 documented as of this encounter
--- OUTSIDE RECORDS SUMMARY | 2024-03-27 12:08 | External Medical Summary | Summary of Care ---
Author Name Unknown Organization [facility] Address [address] [place] [facility] [place] [address] Phone [phone] Care Team Providers Care Storage Manager Name Role Phone Annie Ch DO Primary Care Provider Reason for Visit * Reason Comments Acute Encounter Details Date Type Department Care Team (Latest Contact Info) Description 03/20/2024 12:30 PM EST Office Visit Family Medicine [address] [place] [phone] Annie Ch DO [address] [place] [address] [place] [address] Metastatic colon cancer to liver (HCC)*; Peritoneal carcinomatosis (HCC); Anxiety disorder due to general medical condition with panic attack; Colostomy status (HCC) Allergies Active Allergy Reactions Criticality Noted Date Comments Tetracycline Rash 02/02/2011 Noted when she was a child. documented as of this encounter (statuses as of 03/20/2024) Medications Ondansetron HCl 4 MG Oral Tablet (Zofran)Indic ations:Divert iculitis of sigmoid colon Take 1 Tablet by mouth every 8 hours as needed for Nausea. 20 Tablet 12/27/19 24 Active Additional Information Patient taking differently: 8 mgOral Q8H PRN, Nausea, Reported on 03/20/2024 Famotidine 20 MG Oral Tablet (Pepcid) Take 1 Tablet by mouth in the morning and 1 Tablet before bedtime. 02/13/20 24 Active Vancomycin HCl 125 MG Oral Capsule (Vancocin) Take 1 Capsule by mouth every 6 hours. 02/13/20 24 Active Apixaban 5 MG Oral Tablet (Eliquis)Jocelyne cations:Histo ry of pulmonary embolism Take 1 Tablet by mouth in the morning and 1 Tablet before bedtime. 60 Tablet 5 03/12/20 Active LORazepam 0.5 MG Oral Tablet (Ativan) Take 1 Tablet by mouth every 8 hours as needed for Anxiety or Insomnia. 30 Tablet 1 03/20/20 24 Active Escitalopram Oxalate 20 MG Oral Tablet (Lexapro) Take 1 Tablet by mouth in the morning. 90 Tablet 1 03/20/20 24 Active Prochlorperaz ine Maleate 10 MG Oral Tablet (Compazine) Take 1 Tablet by mouth every 6 hours as needed for Nausea. 03/20/20 24 Active LORazepam 0.5 MG Oral Tablet (Ativan) Take 1 Tablet by mouth in the morning and 1 Tablet before bedtime. 02/13/20 24 024 Discontinued(Re fill) oxyCODONE HCl 5 MG Oral Tablet (Oxy IR) Take 1 Tablet by mouth 2 times a day as needed for Pain, Severe. 10 Tablet 02/24/20 24 024 Discontinued(Ak dication List Clean Up) Escitalopram Oxalate 10 MG Oral Tablet (Lexapro)Jocelyne cations:Anxie ty and depression Take 1 Tablet by mouth in the morning. 90 Tablet 3 02/28/20 24 024 Discontinued documented as of this encounter (statuses as of 03/20/2024) Active Problems Problem Noted Date Diagnosed Date C. difficile colitis 02/28/2024 History of pulmonary embolism 02/28/2024 Malignant neoplasm of colon 02/28/2024 Iron deficiency anemia 02/28/2024 Colostomy status 02/28/2024 Anxiety and depression 02/28/2024 Diverticulitis of large inte mateo with abscess with bleeding 12/13/2023 documented as of this encounter (statuses as of 03/20/2024) Social History Tobacco Use Types Packs/Day Years Used Date Smoking Tobacco: Never Smokeless Tobacco: Never Tobacco Cessation:Counseling Given: Not Answered Alcohol Use Standard Drinks/Week Comments Never 0 (1 standard drink = 0.6 oz pur e alcohol) Comments No Sex and Gender Information Value Date Recorded Sex Assigned at Not on file Legal Sex Female 12:33 PM EST Gender Identity Not on file Sexual Orientation Not on file documented as of this encounter Last Filed Vital Signs Vital Sign Reading Time Taken Comments Blood Pressure 98/70 03/20/2024 12:10 PM EST Pulse 82 03/20/2024 12:10 PM EST Temperature 36.3 C (97.3 F) 03/20/2024 12:[address] Respiratory Rate 16 03/20/2024 12:10 PM EST Oxygen Saturation 98% 03/20/2024 12:10 PM EST Inhaled Oxygen Concentration - - Weight 80.7 kg (178 lb) 03/20/2024 12:10 PM EST Height - - Body Mass Index 31.94 02/21/2024 12:09 PM EST documented in this encounter Progress Notes * Annie Ch, DO - 03/20/2024 12:12 PM EST Subjective: Deanna King is a 43 year old female. Chief Complaint Patient presents with Acute HPI: Deanna King presents today to discuss her colon cancer. She recently underwent PET scan andwas found to have liver mets as well as peritoneal mets and potential lung mets. She has a right IJMediport and started chemotherapy with FOLFOX/Avastin this week. Today she reports feeling some nausea but is overall doing okay. She notes anxiety related to her diagnosis of Stage IV cancer and estimated 2-4 year survival. She notes that she is a fighter and intends to do whatever it takes to fight this cancer. She does have some trouble sleeping and is sometimes on the verge of panic attacks. Finds lorazepam0.5 mg helpful. Has some discomfort from her Mediport but otherwise denies significant pain. PMH: Patient Active Problem List Diagnosis Diverticulitis of large intestine with abscess with bleeding C. difficile colitis History of pulmonary embolism Malignant neoplasm of colon (HCC) Iron deficiency anemia Colostomy status (HCC) Anxiety and depression Current Outpatient Medications Medication Sig Dispense Refill Ondansetron HCl 4 MG Oral Tablet (Zofran) Take 1 Tablet by mouth every 8 hours as needed for Nausea. (Patient taking differently: Take 2 Tablets by mouth every 8 hours as needed for Nausea.) 20 Tablet 0 Escitalopram Oxalate 10 MG Oral Tablet (Lexapro) Take 1 Tablet by mouth in the morning. (Patient taking differently: Take 2 Tablets by mouth in the morning.) 90 Tablet 3 Apixaban 5 MG Oral Tablet (Eliquis) Take 1 Tablet by mouth in the morning and 1 Tablet before bedtime. 60 Tablet 5 Famotidine 20 MG Oral Tablet (Pepcid) Take 1 Tablet by mouth in the morning and 1 Tablet before bedtime. LORazepam 0.5 MG Oral Tablet (Ativan) Take 1 Tablet by mouth in the morning and 1 Tablet before bedtime. Vancomycin HCl 125 MG Oral Capsule (Vancocin) Take 1 Capsule by mouth every 6 hours. No current facility-administered medications for this visit. Review of patient's allergies indicates: Allergen Reactions Tetracycline Rash Noted when she was a child. Objective: BP 98/70 | Pulse 82 | Temp 97.3 F (36.3 C) (Infrared ) | Resp 16 | Wt 178 lb (80.7 kg) | SpO2 98% | BMI 31.94 kg/m | BSA 1.89 m WN/WD Calm and goal focused. Speaks logically. ASSESSMENT/PLAN: Metastatic colon cancer to liver (HCC) (Primary) Peritoneal carcinomatosis (HCC) Anxiety disorder due to general medical condition with panic attack Colostomy status (HCC) Other orders - LORazepam 0.5 MG Oral Tablet (Ativan); Take 1 Tablet by mouth every 8 hours as needed for Anxietyor Insomnia. - Escitalopram Oxalate 20 MG Oral Tablet (Lexapro); Take 1 Tablet by mouth in the morning. She is currently following with the [facility] oncology group but will be getting second/third opinions at [facility] and [facility]. She notes that she was contacted [place] the surgery department [place] [facility] [place] is unsure if she should keep this appointment. Will reach out to surg onc. Ativan to be given as needed for anxiety/sleep. No other bothersome symptoms to necessitate referral to palliative for symptom management. Check-out note: Follow up in 3 months. Annie Ch DO I spent a total of 40-54 minutes (exact time 40 mins) on the date of service in preparation, delivery, and documentation of the care provided to Deanna King excluding any time spent in the performance of separately billed services or time spent by another provider/QHP. documented in this encounter Nursing Notes * Dunia Jimenez LPN - 03/20/2024 12:06 PM EST Follow up from [facility] for CA diagnosis. documented in this encounter Plan of Treatment Upcoming Encounters Date Type Department Care Team (Syde st Contact Info) Description 06/26/2024 12:30 PM EDT Office Visit [address] [phone] [place] [address] 10/13/2024 2:50 PM EDT Office Visit [address] [phone] [place] [address] Scheduled Procedures Name Priority Associated Diagnoses Date/Ti [...] Not on filedocumented as of this encounter Visit Diagnoses Diagnosis Metastatic colon cancer to liver (HCC)- Primary Malignant neoplasm of colon, unspecified site Peritoneal carcinomatosis (HCC) Malignant neoplasm of peritoneum, unspecified Anxiety disorder due to general medical condition with panic attack Colostomy status (HCC) Colostomy status documented in this encounter Care Teams Storage Manager Relationship Specialty Start Date End Date Annie Ch DO [address] [place] [address] [place] [id number] PCP - General Internal Medicine 02/13/24 documented as of this encounter"
--- OUTSIDE RECORDS SUMMARY | 2024-03-27 12:08 | External Medical Summary | Summary of Care ---
Author Name Unknown Organization [facility] Address [address] [place] [address] Phone [phone] Care Team Providers Care It Help Desk Technician Name Role Phone Annie Ch DO Primary Care Provider Reason for Visit * Reason Onset Date Comments Home Health 03/24/2024 Encounter Details Date Type Department Care Team (Late st Contact Info) Description 03/24/2024 Telephone Family Medicine [address] [place] [phone] Annie Ch DO [address] [place] [address] [place] [address] Home Health (/) Allergies [...] encounter Miscellaneous Notes * Telephone Encounter - Barbara Fernandez LPN - 03/24/2024 2:22 PM EST HH Concerns Trena RN, Calling from: [facility] Report/Concerns of: Referral Narrative: Trena calling in as she placing a referral for social services manager. Patient has 5 children, lives withher mom and step dad and recently started chemo. They would like to get her some extra support within the home. FYI to PCP [facility] Nurses documented in this encounter Plan of Treatment Upcoming Encounters Date Type Department Care Team (Late st Contact Info) Description 06/26/2024 12:30 PM EDT Office Visit [address] [place] [phone] [place] [address] 10/13/2024 2:50 PM EDT Office Visit [address] [place] [phone] [address] [place] [address] Scheduled Procedures Name Priority Associated Diagnoses Date/Ti [...] filedocumented as of this encounter Care Teams It Help Desk Technician Relationship Specialty Start Date End Date Annie Ch DO [address] [place] [address] [place] [id number] PCP - General Internal Medicine 02/13/24 documented as of this encounter
--- OUTSIDE RECORDS SUMMARY | 2024-03-27 12:08 | External Medical Summary | Summary of Care ---
Author Name Unknown Organization [facility] Address [address] [place] [address] Phone [phone] Care Team Providers Care Neon Molder Name Role Phone Annie Ch Primary Care Provider [phone] Reason for Visit * Reason Onset Date Comments Referral 02/20/2024 Encounter Details Date Type Department Care Team (Late st Contact Info) Description 02/20/2024 Telephone General Surgery, [facility] [address] [place] [address] Services, [facility] [address] [place] [address] Referral Allergies Active Allergy Reactions Criticality Noted Date Comments Tetracycline Rash 02/02/2011 Noted when she was a child. documented as of this encounter (statuses as of 03/18/2024) Medications Ondansetron HCl 4 MG Oral Tablet (Zofran)Indicat ions:Diverticul itis of sigmoid colon Take 1 Tablet by mouth every 8 hours as needed for Nausea. 20 Tablet 12/27/19 24 Active Famotidine 20 MG Oral Tablet (Pepcid) Take 1 Tablet by mouth in the morning and 1 Tablet before bedtime. 02/13/20 24 Active LORazepam 0.5 MG Oral Tablet (Ativan) Take 1 Tablet by mouth in the morning and 1 Tablet before bedtime. 02/13/20 24 Active Vancomycin HCl 125 MG Oral Capsule (Vancocin) Take 1 Capsule by mouth every 6 hours. 02/13/20 24 Active Amoxicillin-Pot Clavulanate 875-125 MG Oral Tablet (Augmentin) Take 1 Tablet by mouth in the morning and 1 Tablet before bedtime. 02/13/20 24 024 Discontinued Escitalopram Oxalate 10 MG Oral Tablet (Lexapro) Take 1 Tablet by mouth in the morning. 02/13/20 024 Discontinued(Re fill) oxyCODONE HCl 5 MG Oral Tablet (Oxy IR) Take 1 Tablet by mouth every 4 hours as needed. 02/07/20 024 Discontinued(Re fill) Sulfamethoxazol e-Trimethoprim 800-160 MG Oral Tablet (Bactrim DS) Take 1 Tablet by mouth in the morning and 1 Tablet before bedtime. 02/13/20 024 Discontinued documented as of this encounter (statuses as of 03/18/2024) Active Problems Problem Noted Date Diagnosed Date C. difficile colitis 02/28/2024 History of pulmonary embolism 02/28/2024 Malignant neoplasm of colon 02/28/2024 Iron deficiency anemia 02/28/2024 Colostomy status 02/28/2024 Anxiety and depression 02/28/2024 Diverticulitis of large inte mateo with abscess with bleeding 12/13/2023 documented as of this encounter (statuses as of 03/18/2024) Social History Tobacco Use Types Packs/Day Years [...] encounter Miscellaneous Notes * Telephone Encounter - Meera Rios RN - 03/18/2024 3:57 PM EST Multiple attempts made to contact pt to schedule colorectal surgery appointment. Unable to reach patient via phone or [employer] message. Will cancel referral at this time. Pt is welcome to contact us to schedule in the future. * Addendum Note - Meera Rios RN - 02/21/2024 9:50 AM ESTAddended by: MEERA RIOS on: 02/21/2024 09:50 AM Modules accepted: Orders * Telephone Encounter - Meera Rios RN - 02/21/2024 9:49 AM EST Pt returned call. Obtained verbal consent to obtain pathology slides. Sent authorization to [facility] and placed order for microslide consult. * Telephone Encounter - Meera Rios RN - 02/21/2024 9:00 AM EST Discussed referral with Dr. Champagne. Will obtain pathology slides from [facility], have them read here [facility], and then discuss at [facility] [place]. Called pt and LM to discuss obtaining verbal consent for pathology slides. * Telephone Encounter - Madiha [facility] LPN - 02/20/2024 3:12 PM EST Referral from: Dr. Elizabeth Higgins Consult: Colorectal Surgery For: colon adenocarcinoma Referral received as detailed above. Operative reports and pathology reports included in referral scan. Will notify dept of referral. Shwetha Aguilar LPN Intake Nurse Navigator General Surgery and Breast Clinic [facility] documented in this encounter Plan of Treatment Upcoming Encounters Date Type Department Care Team (Late st Contact Info) Description 03/20/2024 12:30 PM EST [address] [phone] [address] [place] [address] 10/13/2024 2:50 PM EDT Office Visit [address] [place] [phone] Annie Ch [address] [place] [address] Scheduled Procedures Name Priority Associated Diagnoses Date/Ti [...] 01/03/2019, Additional history exists Mammogram 01/02/2025 01/03/2024, 0609/2022, 09/11/2022, Additional history exists DTap/Tdap Vaccines (8 [...] Not on filedocumented as of this encounter Procedures Procedure Name Priority Date/Time Associated Diagnosis Comments MICROSLIDE CONSULTATION Routine 02/21/2024 9:50 AM EST Colon adenocarcinoma (HCC) documented in this encounter Results * MICROSLIDE CONSULTATION (02/21/2024 9:50 AM EST) Final Diagnosis Consult, 2 H&E slides (labeled [id number]), and 7 H&E/5 IHC slides (labeled [id number]), [facility]: A: Colon, end of descending colon at colostomy site, excision (2 H&E slides, [id number]): Colonic mucosa with ulceration, hemorrhage and acute inflammation Negative for malignancy B: Colon, descending, partial resection (7 H&E slides and 5 IHC slides, [id number]): Adenocarcinoma, moderately differentiated. Greatest tumor dimension: 5.5 cm (gross measurement, from Gross Description of the outside report) Tumor invading bowel wall and gentry-bowel soft tissue, focally involving ulcerated mucosa One of the margins (A6) is positive for adenocarcinoma (tumor nodule in outer layer of the muscularis propria) NOTE: The IHC stained slides ([id number]) are reviewed. P53 shows no aberrant expression; Immunostains for MSI proteins show intact expression for MLH1, MSH2, MSH6 and PMS2. 02/25/2024 11:53 AM EST [facility] Microscopic Description A, B: Microscopic examination performed. 02/25/2024 11:53 AM EST [facility] Materials Received Colon, descending, partial resection/ [facility]/ [id number]/ x 2 stained slides (H&E A1 and A2)/ collected 02/04/24 Colon, end of descending colon at colostomy site, excision/ [facility]/ [id number]/ 12 slides (7 H&E's A1-A7 and 5 immunostains on A2)/ Collected 02/06/24 02/25/2024 11:53 AM EST [facility] Sign Out Location Pathologist sign out performed at [facility] ([facility]), [address] [place] [id number]. 02/25/2024 11:53 AM EST [facility] Tissue 02/21/2024 9:50 AM EST 02/21/2024 9:50 AM EST Specimen from wound (specimen) 02/21/2024 9:50 AM EST 02/25/2024 11:01 AM EST us Mercedes Champagne DO LAB PATHOLOGY ORDERABLES Final Result [facility] [address] [facility] [place] [address] documented in this encounter Visit Diagnoses Diagnosis Colon adenocarcinoma (HCC)- Primary Malignant neoplasm of colon, unspecified site documented in this encounter Care Teams Neon Molder Relationship Specialty Start Date End Date Annie Ch DO [address] [place] [address] [place] [phone] PCP - General Internal Medicine 02/13/24 documented as of this encounter
[2024-03-27] MEDS: SODIUM CHLORIDE 0.9% 1,000 ML IV SCH (13:10)
[2024-03-27] MEDS: PROMETHAZINE 6.25 MG/50.25 ML BAG IV PRN (13:34)
[2024-03-27] MEDS: PROCHLORPERAZINE 5 MG in SYRINGE 4 ML IV PRN (16:32)
[2024-03-27] MEDS: ACETAMINOPHEN 325 MG TAB PO PRN (17:39)
[2024-03-27] MEDS: FAMOTIDINE 20 MG TAB PO SCH (21:06)
[2024-03-27] MEDS: APIXABAN 5 MG TABLET PO SCH (21:06)
--- NOTE | 2024-03-27 21:28 | Electrocardiogram Report ---
Test Reason : Blood Pressure : */* mmHG Vent. Rate : 88 BPM Atrial Rate : 88 BPM P-R Int : 142 ms QRS Dur : 80 ms QT Int : 370 ms P-R-T Axes : 26 0 24 degrees QTcB Int : 447 ms Normal sinus rhythm Normal ECG When compared with ECG of 16-Feb-2024 22:11, No significant change was found Confirmed by Damon De ([id number]) on 03/27/2024 9:28:22 PM Referred By: REFERRED SELF Confirmed By: Damon De
[2024-03-27] MEDS: LORazepam 2 MG/1 ML VIAL IV PRN (22:01)
--- NOTE | 2024-03-28 05:25 | Surgery Progress Note ---
Date of Service March 28, 2024 Assessment & Plan (1) Small bowel obstruction: Plan: Patient has been admitted on the hospitalist service. From a surgical perspective we recommend the following: Continue IV fluids while patient is n.p.o. As patient is having ostomy output consideration may be given to advancing her diet beginning with clear liquids Provide analgesics as needed Provide antiemetics as needed Mobilize as able Check a.m. labs when available as above. feels "completely back to normal".... no pain or nausea. stoma now functioning. "hungry" clinically dramatically improved. will try full liquids. Admission and Anticipated Discharge Date Admission Date: March 27, 2024 Subjective Patient is resting comfortably in bed. She states "I feel fine.". She denies any nausea or vomiting. She denies any fevers, shakes, or chills. Patient notes that she has been having both stool and gas output from her ostomy. She denies any abdominal pain at the present time Physical Exam Gastrointestinal (Abdomen): Abdomen is soft and nondistended. There is minimal to no pain with palpation. Patient's ostomy has output noted in the bag. Results & Data Vital Signs (Past 12 Hours) Vital Signs Temp Pulse Pulse Pulse Resp BP Pulse Ox 03/28/24 03:20 37 C 72 16 105/69 97 03/27/24 22:50 82 03/27/24 22:39 37.0 C 72 18 105/69 97 03/27/24 19:53 113/75 03/27/24 19:41 80 03/27/24 19:32 03/27/24 19:20 37.4 C 80 18 98 O2 Del Method 03/28/24 03:20 Room Air 03/27/24 22:50 03/27/24 22:39 Room Air 03/27/24 19:53 03/27/24 19:41 03/27/24 19:32 Room Air 03/27/24 19:20 Room Air PG Care Time/CCT Total # of Minutes Spent Total Time Spent with Patient: Total time spent is greater than 50% in coordination of care (as documented) at patient's floor/unit and/or counseling patient: Coding Level of Care Code 16309 SUB INP/OBS CARE 05/02MIN Diagnoses Small bowel obstruction K56.609
[2024-03-28 07:11] LABS: Hematocrit (blood only) 27.7 % (37.0-47.0); Hemoglobin 8.6 g/dl (12.0-16.0); Mean Corpuscular Hemoglobin 24.4 pg (25.0-34.0); Mean Corpuscular Volume 78.5 fL (80.0-100.0); Mean Platelet Volume 9.5 fL (9.4-12.4); Platelet Count 182 K/uL (130-400); RDW Coefficient of Variation 19.1 % (11.5-14.5); Red Blood Count 3.53 M/uL (4.20-5.40); White Blood Count 4.25 K/ul (4.8-10.8)
[2024-03-28 07:33] LABS: Calcium 8.1 mg/dl (8.6-10.3); Creatinine Clr Calc Pharmacy 122.3 ml/min; Potassium 3.7 mmol/L (3.5-5.1)
[2024-03-28 07:50] LABS: Appearance Urine Cloudy (Clear); Bacteria Urine Automated 4+ (None Seen); Bilirubin Urine Negative (Negative); Blood Urine Negative (Negative); Color Urine Yellow; Glucose Urine UA Negative (Negative); Ketones Urine 2+ (Negative); Leukocyte Esterase Urine 2+ (Negative); Nitrite Urine Negative (Negative); Protein Urine Trace (Negative); Specific Gravity Urine 1.042 (1.000-1.030); Urobilinogen Urine Negative (Negative); WBC Urine Automated 21-50 /hpf (0-5); pH Urine 6.5 (4.5-7.5)
[2024-03-28 08:02] LABS: Mucus Urine Present (None Prsent)
[2024-03-28] MEDS: FLUCONAZOLE 100 MG TAB PO SCH (08:14)
[2024-03-28] MEDS: ESCITALOPRAM OXALATE 20 MG TAB PO SCH (08:14)
--- NOTE | 2024-03-28 12:57 | Hospitalist Progress Note ---
Date of Service March 28, 2024 Assessment & Plan (1) Partial small bowel obstruction: (2) Adenocarcinoma of colon: (3) Pulmonary embolism: (4) Adjustment disorder with anxious mood: Plan Ms. King is a 44-year-old female with PMH recently diagnosed metastatic colon adenocarcinoma (mets to liver and peritoneum), perforated diverticulitis/ adenocarcinoma s/p colostomy on 02/05, pulmonary embolism anticoagulated on Eliquis, C. difficile s/p treatment, and other problems listed below admitted for partial small bowel obstruction. Patient with increased ostomy output overnight and resolution of pain. Patient tolerating fulls thus far. Possible discharge tomorrow contingent on course. Patient reports small ulceration near ostomy, but under occlusive dressing---requesting visualization by surgical service. Surgery notified and reported they will assess area. #Partial small bowel obstruction: In the ED, CT ABD/pelvis showing evidence of partial small bowel obstruction General surgery consulted - conservative management with improvement this far Tolerating full liquid diet # Adenocarcinoma of colon: Diagnosed January 2024 with mets to liver and peritoneum In the setting of perforation s/p colostomy Follows with Dr. Angulo at [facility] s/p first dose of FOLFOX/Avastin on 03/17 Seeking out second opinion at [facility] next week on 03/30 # Pulmonary embolism: Anticoagulated on Eliquis, continue #Adjustment disorder with anxious mood: Continue SETTER OUT escitalopram IV lorazepam as needed as patient is experiencing increased anxiety during hospitalization DVT eliquis likely dispo tomorrow Admission and Anticipated Discharge Date Admission Date: March 27, 2024 Subjective NAEO Reports ostomy output as of last evening picking up Denies any nausea or vomiting Reports area of ulceration/irritation under stomal dressing that she has been managing with bacitracin, declined visualization at this time but open for surgical assessment Physical Exam Constitutional: WD/WN, vitals as above Respiratory: normal respiratory effort, lungs clear to auscultation Cardiovascular: RRR, no murmur, no edema Gastrointestinal (Abdomen): ostomy bag with brown liquid stool, mucosa pink nonfriable, unable to visualize area noted by patient Results & Data Results & Data Vital Signs (Past 12 Hours) Vital Signs Temp Pulse Pulse Resp BP Pulse Ox O2 Del Method 03/28/24 11:32 36.9 C 77 18 117/81 97 Room Air 03/28/24 10:35 87 03/28/24 07:38 36.8 C 81 18 111/75 97 Room Air 03/28/24 03:20 37 C 72 16 105/69 97 Room Air Laboratory Results Short CBC 03/28/24 Range/Units 05:46 WBC 4.25 L (4.8-10.8) K/ul Hgb 8.6 L (12.0-16.0) g/dl Hct 27.7 L (37.0-47.0) % Plt Count 182 (130-400) K/uL BMP 03/28/24 05:46 Sodium 141 Potassium 3.7 Chloride 112 H Carbon Dioxide 24 BUN 12 Creatinine 0.60 Glucose 82 Calcium 8.1 L Urine 03/28/24 Range/Units 06:15 Urine Color Yellow Urine Appearance Cloudy A (Clear) Urine pH 6.5 (4.5-7.5) Ur Specific [place] 1.042 H (1.000-1.030) Urine Protein Trace H (Negative) Urine Glucose (UA) Negative (Negative) Medications Administered Home Medications Medication Instructions Recorded Confirmed Last Taken lorazepam 0.5 mg tablet (Ativan) 0.5 mg PO BID PRN anxiety #30 tabs 02/13/24 03/27/24 Unknown famotidine 20 mg tablet 20 mg PO BID Acid Reflux 03/03/24 03/27/24 Unknown apixaban 5 mg tablet (Eliquis) 5 mg PO BID 03/27/24 03/27/24 Unknown escitalopram oxalate 20 mg tablet 20 mg PO QAM 03/27/24 03/27/24 Unknown fluconazole 200 mg tablet 200 mg PO DAILY 03/27/24 03/27/24 Unknown ondansetron HCl 8 mg tablet 8 mg PO Q8H PRN Nausea 03/27/24 03/27/24 Unknown prochlorperazine maleate 10 mg 10 mg PO Q6H PRN n/v 03/27/24 03/27/24 Unknown tablet Active Medications Generic Name Dose Route Start Last Admin Trade Name Freq PRN Reason Stop Dose Admin Acetaminophen 650 mg 03/27/24 11:51 03/27/24 17:39 Acetaminophen 325 Mg Tab PO 04/26/24 11:50 650 mg Q4H PRN Administration pain/fever Apixaban 5 mg 03/27/24 21:00 03/28/24 08:16 Apixaban 5 Mg Tablet PO 04/26/24 20:59 5 mg BID LORETTA Administration Escitalopram Oxalate 20 mg 03/28/24 09:00 03/28/24 08:14 Escitalopram Oxalate 20 Mg Tab PO 04/27/24 08:59 20 mg QAM LORETTA Administration Famotidine 20 mg 03/27/24 21:00 03/28/24 08:14 Famotidine 20 Mg Tab PO 04/26/24 20:59 20 mg BID LORETTA Administration Fluconazole 200 mg 03/28/24 09:00 03/28/24 08:14 Fluconazole 100 Mg Tab PO 04/27/24 08:59 200 mg DAILY LORETTA Administration Promethazine HCl 6.25 mg in 50.25 mls @ 201 mls/hr 03/27/24 11:51 03/27/24 14:06 Phenergan IV 04/26/24 11:50 Infused Q6H PRN Infusion Nausea And Vomiting Prochlorperazine 5 mg/ Syringe 5 mls @ 5 mls/min 03/27/24 11:51 03/27/24 16:32 IV 04/26/24 11:50 5 mls/min Q6H PRN Administration Nausea And Vomiting Lorazepam 1 mg 03/27/24 11:51 03/28/24 08:23 Lorazepam 2 Mg/1 Ml Vial IV 04/26/24 11:50 1 mg Q8H PRN Administration Anxiety/Agitation (3) Pulmonary embolism Acute cor pulmonale presence: unspecified Chronicity: acute Pulmonary embolism type: unspecified Qualified Code(s): I26.99 - Other pulmonary embolism without acute cor pulmonale
--- NOTE | 2024-03-28 20:01 | Communication Note ---
Date of Service: March 28, 2024 Patient notified nursing staff that she had an area of breakdown near her ostomy site and we are asked to evaluate this. The patient's ostomy appliance was completely removed and at the 3:00 area immediately lateral to her ostomy there is a small open area of skin with some area of breakdown. There is minimal surrounding erythema and there is no pu rulent drainage coming out of this area. There was a small amount of serous fluid. There is not tender to palpation. For the present time we will continue to monitor this and make attempts to keep this area clean and dry. If the patient remains hospitalized we will ask wound care nursing to evaluate the patient's ostomy on 03/30/2024. At the conclusion of my visit with the patient the area was cleaned and dried and a new ostomy appliance was placed.
--- NOTE | 2024-03-29 05:16 | Surgery Progress Note ---
Date of Service March 29, 2024 Assessment & Plan (1) Small bowel obstruction: Plan: Patient has been admitted on the hospitalist service. From a surgical perspective we recommend the following: Diet have been advanced to full liquids which patient is tolerating. Consideration be given to advancing diet further Continue analgesics as needed Continue antiemetics as needed Continue to mobilize as able Continue measures to keep the area of breakdown next to her colostomy clean and dry Check a.m. labs when available Patient is taking Eliquis send no additional DVT prophylaxis required as above. feeling much better. crystal diet. ok from my standpoint for d/c the "ulcer" on her stoma is much improved since it self drained. no further treatment indicated. Admission and Anticipated Discharge Date Admission Date: March 27, 2024 Subjective Patient is resting comfortably in bed. She notes that her abdominal pain has nearly completely resolved and she is tolerating full liquids without any issues. She denies any nausea or vomiting. She notes that her ostomy is now working appropriately. She does note that she feels hungry. She has been ambulating in the hallways without difficulty Physical Exam Gastrointestinal (Abdomen): Abdomen is soft and nondistended. There is no rebound tenderness or guarding and no pain with palpation. Her ostomy is pink and viable and has some brown liquidy stool in the collection bag. As noted last evening patient had an area of breakdown at the area just lateral to her colostomy without gross purulence. Results & Data Vital Signs (Past 12 Hours) Vital Signs Temp Pulse Pulse Resp BP Pulse Ox O2 Del Method 03/29/24 03:32 36.6 C 63 16 134/73 97 Room Air 03/28/24 23:30 36.7 C 67 18 120/82 97 Room Air 03/28/24 23:14 70 03/28/24 19:00 36.9 C 88 18 118/79 98 Room Air PG Care Time/CCT Total # of Minutes Spent Total Time Spent with Patient: Total time spent is greater than 50% in coordination of care (as documented) at patient's floor/unit and/or counseling patient: Coding Level of Care Code 34750 SUB INP/OBS CARE 05/02MIN Diagnoses Small bowel obstruction K56.609
[2024-03-29 07:15] LABS: Hematocrit (blood only) 28.9 % (37.0-47.0); Hemoglobin 8.9 g/dl (12.0-16.0); Mean Corpuscular Hgb Conc 30.8 g/dL (32.0-36.0); Mean Corpuscular Volume 77.9 fL (80.0-100.0); Mean Platelet Volume 9.3 fL (9.4-12.4); Platelet Count 184 K/uL (130-400); RDW Coefficient of Variation 18.8 % (11.5-14.5); RDW Standard Deviation 52.3 fL (36.4-46.3); Red Blood Count 3.71 M/uL (4.20-5.40); White Blood Count 3.38 K/ul (4.8-10.8)
[2024-03-29 07:36] LABS: BUN Creatinine Ratio 10.4 (10-20); Calcium 8.5 mg/dl (8.6-10.3); Creatinine Clr Calc Pharmacy 109.9 ml/min; Phosphorus 3.6 mg/dl (2.5-4.9); Potassium 3.6 mmol/L (3.5-5.1)
[2024-03-29 07:38] VITALS: O2SAT 98
[2024-03-29 11:19] VITALS: RESP 16; TEMP 98.4
--- NOTE | 2024-03-29 11:34 | Discharge Summary ---
Discharge Summary Date of Service March 29, 2024 Principal Dx & Hospital Course #1 = Principal Diagnosis (1) Partial small bowel obstruction: (2) Adenocarcinoma of colon: (3) Pulmonary embolism: (4) Adjustment disorder with anxious mood: Plan Ms. King is a 44-year-old female with PMH recently diagnosed metastatic colon adenocarcinoma (mets to liver and peritoneum), perforated diverticulitis/ adenocarcinoma s/p colostomy on 02/05, pulmonary embolism anticoagulated on Eliquis, C. difficile s/p treatment, and other problems listed below admitted for partial small bowel obstruction. Patient with increased ostomy output overnight and resolution of pain. Patient tolerating fulls thus far. Possible discharge tomorrow contingent on course. Patient reports small ulceration near ostomy, but under occlusive dressin g---requesting visualization by surgical service. Surgery reviewed ulceration which appears to be without superimposed infection. On day of discharge, patient is eating well, denying any abdominal pain, and with adequate stomal output #Partial small bowel obstruction: In the ED, CT ABD/pelvis showing evidence of partial small bowel obstruction General surgery consulted - conservative management with resoltion Discussed low fiber diet in interim # Adenocarcinoma of colon: Diagnosed January 2024 with mets to liver and peritoneum In the setting of perforation s/p colostomy Follows with Dr. Angulo at [facility] s/p first dose of FOLFOX/Avastin on 03/17 Seeking out second opinion at [facility] tomorrow 03/30 # Pulmonary embolism: Anticoagulated on Eliquis, continue #Adjustment disorder with anxious mood: Continue GREENKEEPER escitalopram IV lorazepam as needed as patient is experiencing increased anxiety during hospitalization Notes For Next Care Provider Medication Changes From Visit None Admission HPI Per Admitting Provider 44-year-old female with PMH recently diagnosed metastatic colon adenocarcinoma (mets to liver and peritoneum), perforated diverticulitis/ adenocarcinoma s/p colostomy on 02/05, pulmonary embolism anticoagulated on Eliquis, C. difficile s/p treatment, and other problems listed below who presents to the ED for evaluation of abdominal pain. Patient reports she woke up around midnight with mid abdominal pain. Describes the pain as a cramping. States she had associated nausea and vomiting. No hematemesis or coffee-ground emesis. Patient reports her first dose of chemotherapy was on 03/17. Reports she tole rated her first dose well. States that she has had normal colostomy output. No fevers or chills. She denies chest pain and shortness of breath. No lightheadedness, dizziness, diaphoresis, syncopal events. No urinary symptoms. In the ED, CT ABD/pelvis is showing a partial small bowel obstruction. Patient was given IVF, IV Zofran, IV Phenergan. Also reporting increased anxiety and received IV lorazepam. Discharge Exam Constitutional WD/WN, vitals as above Respiratory normal respiratory effort, lungs clear to auscultation Cardiovascular RRR, no murmur, no edema Updated Medication List Medication Instructions Recorded Confirmed Type lorazepam 0.5 mg tablet (Ativan) 0.5 mg PO BID PRN anxiety #30 tabs 02/13/24 03/27/24 Rx famotidine 20 mg tablet 20 mg PO BID Acid Reflux 03/03/24 03/27/24 History apixaban 5 mg tablet (Eliquis) 5 mg PO BID 03/27/24 03/27/24 History escitalopram oxalate 20 mg tablet 20 mg PO QAM 03/27/24 03/27/24 History ondansetron HCl 8 mg tablet 8 mg PO Q8H PRN Nausea 03/27/24 03/27/24 History prochlorperazine maleate 10 mg 10 mg PO Q6H PRN n/v 03/27/24 03/27/24 History tablet Hospital Stay Data Consultations 03/27/24 10:24 ED Decision to Admit Stat 03/27/24 11:51 Consult General Surgery Routine Diagnostic Imagining Performed 03/27/24 07:25 CT abd pelvis IV con only Stat Pending Results Patient Have Any Pending Studies at Discharge: No Discharge Instructions Given to Patient (Per Discharging Provider) You were admitted for partial small bowel obstruction You were treated conservatively with resolution of abdominal pain At this time, we will recommend a low fiber diet You were given prints out for examples There were no changes to your home routine medications Total Time Total Time Spent Total Time Spent (In Minutes): 35
[2024-03-29 11:44] VITALS: BP 117/80; PULSE 80
[2024-03-29] MEDS: CALCIUM CARBONATE 500 MG CHEWABLE TAB PO PRN (11:57)
== END 2024-03-29 12:51 | disposition home or self-care (01) | DRG 389 ==
LOC: ED 06:41 → SUATTDRO 10:34 → EDINP 10:34 → INTOOBSV 10:34 → 2N 11:51

== ENCOUNTER 2024-04-08 07:30 | Observation (INO) ==
--- OUTSIDE RECORDS SUMMARY | 2024-04-08 07:35 | External Medical Summary | Summary of Care ---
Author Name Unknown Organization [facility] Address [address] [place] [address] Phone [phone] Care Team Providers Care Route Vending Machine Servicer Name Role Phone Annie Ch Primary Care Provider Reason for Visit * Reason Onset Date Comments Hospital Follow-Up 03/30/2024 Dipti for [facility] Encounter Details Date Type Department Care Team (Late st Contact Info) Description 03/30/2024 Telephone Family [address] [phone] Chiquita Celis RN Hospital Follow-Up (Dipti for [facility]) Allergies Active Allergy Reactions Criticality Noted Date Comments Tetracycline Rash 02/02/2011 Noted when she was a child. documented as of this encounter (statuses as of 03/31/2024) Medications Ondansetron HCl 4 MG Oral Tablet (Zofran)Indica tions:Divertic ulitis of sigmoid colon Take 1 Tablet by mouth every 8 hours as needed for Nausea. 20 Tablet 4 Active Additional Information Patient taking differently: 8 mgOral Q8H PRN, Nausea, Reported on 03/20/2024 Apixaban 5 MG Oral Tablet (Eliquis)Indic ations:History of pulmonary embolism Take 1 Tablet by mouth in the morning and 1 Tablet before bedtime. 60 Tablet 5 4 Active LORazepam 0.5 MG Oral Tablet (Ativan) Take 1 Tablet by mouth every 8 hours as needed for Anxiety or Insomnia. 30 Tablet 1 4 Active Escitalopram Oxalate 20 MG Oral Tablet (Lexapro) Take 1 Tablet by mouth in the morning. 90 Tablet 1 4 Active Prochlorperazi ne Maleate 10 MG Oral Tablet (Compazine) Take 1 Tablet by mouth every 6 hours as needed for Nausea. 4 Active Famotidine 20 MG Oral Tablet (Pepcid) Take 1 Tablet by mouth in the morning and 1 Tablet before bedtime. 90 Tablet 2 4 Active Vancomycin HCl 125 MG Oral Capsule (Vancocin) Take 1 Capsule by mouth every 6 hours. 4 03/31/20 Discontin ued(Medic ation List Clean Up) documented as of this encounter (statuses as of 03/31/2024) Active Problems Problem Noted Date Diagnosed Date C. difficile colitis 02/28/2024 History of pulmonary embolism 02/28/2024 Malignant neoplasm of colon 02/28/2024 Iron deficiency anemia 02/28/2024 Colostomy status 02/28/2024 Anxiety and depression 02/28/2024 Diverticulitis of large inte mateo with abscess with bleeding 12/13/2023 documented as of this encounter (statuses as of 03/31/2024) Social History Tobacco Use Types Packs/Day Years [...] encounter Miscellaneous Notes * Telephone Encounter - Chiquita Celis RN - 03/31/2024 12:34 PM EST Transitions of Care Note Reason for Referral:Recent Admission Phone visit for follow up: DIPTI Admitted to: [facility], Date: 03.27.24 Discharged to: home Date: 03.29.24 Diagnosis driving hospitalization: (1) Partial small bowel obstruction: (2) Adenocarcinoma of colon: (3) Pulmonary embolism: (4) Adjustment disorder with anxious mood: Per hospital follow up : CT ABD/pelvis showing evidence of partial small bowel obstruction General surgery consulted - conservative management with resoltion Discussed low fiber diet in interim Adenocarcinoma of colon: Diagnosed January 2024 with mets to liver and peritoneum In the setting of perforation s/p colostomy Follows with Dr. Angulo at [facility] s/p first dose of FOLFOX/Avastin on 03/31 Seeking out second opinion at [facility] tomorrow 03/30 Source/Contact: Patient SUBJECTIVE Consent: Verbal consent for review of hospital discharge: Yes REVIEW OF SYSTEMS Patient/Other Reports: Current patient/caregiver problems or concerns: none CV: Denies problems Pulmonary: Denies problems Chills/Sweats/Fever:Denies chills/sweats Denies fever Appetite:Denies problems such as nausea, vomiting, burning, decreased appetite Current diet: At this time, we will recommend a low fiber diet Bowel: ostomy: wnl, patient states ostomy never stopped and they said maybe it wasn't a SBO and food poisoning instead. Bladder: denies problems Wound (If applicable): N/A Pain:Denies Sleep:Denies problems FUNCTIONAL STATUS: ADL'S: Needs Assistance With:N/A as pt is independent IADL'S: Needs Assistance With:N/A as pt is independent Cognitive and Mental Health: denies problems, alert and oriented x 3, and able to communicate, understand instructions, process information. MEDICATION RECONCILIATION Medications: Reports all medications taken as prescribed. OBJECTIVE ASSESSMENT Medication Risk Assessment: No risks identified Did patient fail outpatient treatment? No Discharge instructions available for review? Yes PLAN Symptom Monitoring Interventions:Member/caregiver education - signs and symptoms to contact PrimaryCare (DO NOT DELETE-Three eng symptoms patient is to report to PCP) 1. Severe abd pain 2. fever 3. Sob/chest pain Nuclear InstructorFlavor Maker of Care interventions/Action Plan: Denies scheduling a HD appointment. Patient feels she is doing well and has a lot of other things going on with chemo, and [facility] consults Educated on role of DIPTI completed with patient/caregiver. Educated patient/caregiver on patient right to have input on DIPTI plan of care. Verification of Home Health/DME if indicated: NO Identified Care Gaps: Yes Care Gaps closed this call: Transition of Care follow-up communication Re-evaluation of Plan of Care and progress towards goals achievement: Patient education this visit: Verbal, patient to continuing to stay hydrated Plan to instructed to call Primary Care Provider with change in symptoms or as needed before next follow-up, verbalizes understanding and agrees with plan., patient would like to let Dr. Ch know that her 2nd opinion at [facility] went "exceptionally well. Patient will be seeing a surgeon, a Pet Scan in 3mths and a colorectal surgeon on 04/15. Patient will continue Immunotherapy and chemo at [facility] [id number] on a Saturday. Chiquita Celis RN * Telephone Encounter - Chiquita Celis RN - 03/30/2024 3:06 PM EST Transitions of Care Note Reason for Referral:Recent Admission Phone visit for follow up: DIPTI Admitted to: [facility], Date: 03.27.24 Discharged to: home Date: 03.29.24 Diagnosis driving hospitalization: (1) Partial small bowel obstruction: (2) Adenocarcinoma of colon: (3) Pulmonary embolism: (4) Adjustment disorder with anxious mood: Per hospital follow up : At this time, we will recommend a low fiber diet CT ABD/pelvis showing evidence of partial small bowel obstruction General surgery consulted - conservative management with resoltion Discussed low fiber diet in interim Adenocarcinoma of colon: Diagnosed January 2024 with mets to liver and peritoneum In the setting of perforation s/p colostomy Follows with Dr. Angulo at [facility] s/p first dose of FOLFOX/Avastin on 03/17 Seeking out second opinion at [facility] tomorrow 03/30 Attempted Phone Call First Attempt Call Outcome Left Voicemail/Message Chiquita Celis RN documented in this encounter Plan of Treatment Upcoming Encounters Date Type Department Care Team (Late st Contact Info) Description 06/26/2024 12:30 PM EDT Office Visit [address] [place] [phone] Annie Ch[address] [place] [id number] 10/13/2024 2:50 PM EDT Office Visit [address] [place] [phone] Annie Ch[address] [place] [id number] Scheduled Procedures Name Priority Associated Diagnoses Date/Ti [...] 01/03/2019, Additional history exists Mammogram 01/02/2025 01/03/2024, 09/2022, 09/11/2022, Additional history exists DTap/Tdap Vaccines (8 [...] filedocumented as of this encounter Care Teams Route Vending Machine Servicer Relationship Specialty Start Date End Date Annie Ch DO [address] [place] [address] [place] [id number] PCP - General Internal Medicine 02/13/24 documented as of this encounter
--- NOTE | 2024-04-08 07:39 | Emergency Department Note ---
History of Present Illness General Chief complaint: Abdominal Pain Stated complaint: ABD PAIN,VOMITING Time Seen by Provider: 04/08/24 07:35 History of Present Illness Maximum Pain Intensity: 6 This is a 44-year-old female with a history of metastatic adenocarcinoma of the colon, history of pulmonary embolism currently on Eliquis, history of C. difficile, history of perforated diverticulitis/adenocarcinoma with colostomy in January of this past year that presents to the emergency department via private vehicle with complaints of "abdominal pain, vomiting". Patient states that she was doing well from her recent hospitalization up until midnight. She notes then she began with vomiting but does note overall less vomiting than when she was recently hospitalized. She also noted some generalized abdominal cramping more focused in the center of the abdomen. She denies any fevers or chills. No chest pain or shortness of breath. Patient currently undergoing chemotherapy. Patient notes last chemotherapy session was Chris Gaines. [facility]. Current pain 09/15. Home Medications Medication Instructions Recorded Confirmed Type lorazepam 0.5 mg tablet (Ativan) 0.5 mg PO BID PRN anxiety #30 tabs 02/13/24 04/08/24 Rx famotidine 20 mg tablet 20 mg PO BID Acid Reflux 03/03/24 04/08/24 History apixaban 5 mg tablet (Eliquis) 5 mg PO BID 03/27/24 04/08/24 History escitalopram oxalate 20 mg tablet 20 mg PO QAM 03/27/24 04/08/24 History ondansetron HCl 8 mg tablet 8 mg PO Q8H PRN Nausea 03/27/24 04/08/24 History prochlorperazine maleate 10 mg 10 mg PO Q6H PRN n/v 03/27/24 04/08/24 History tablet oxycodone 5 mg tablet 5 mg PO .EVERY 4-6 HOURS PRN Pain 04/08/24 04/08/24 History Allergies Allergy/AdvReac Type Severity Reaction Status Date / Time No Known Allergies Allergy Verified 04/08/24 10:14 Past Med/Surg History Problem List Nausea & vomiting (Acute) Small bowel obstruction (Acute) Partial small bowel obstruction (Acute) Pulmonary embolism (Acute) 02/16/24- on Eliquis Status post exploratory laparotomy Adenocarcinoma, colon Panic attack due to exceptional stress Adjustment disorder with anxious mood Anemia (Acute) Gastric bypass status for obesity Medical History Peritonitis Abdominal pain Acute diverticulitis History of Clostridium difficile infection diagnosed 02/09/24 while admitted in hospital - treated with Vancomycin until 02/27/24 Colostomy present done 02/04/24 stoma revised 02/06/24 with an additional 4.5cm of the colon removed History of diverticulitis history of multiple flares over the past year Hx of deep venous thrombosis (2010) - s/p childbirth in 2010- was on blood thinner for short time - no DVT noted with PE on 02/16/24 Hx of migraines History of panic attacks History of pulmonary embolism dx 02/16/24 [facility]>started on Eliquis provoked by malignancy and surgical intervention per records dopplers negative for DVT Adenocarcinoma of colon dx'ed 01/2024 Perforated sigmoid colon - 02/03/24 due to enlarging mass (adenocarcinoma of the colon) - 02/04/24 underwent partial left colon resection and end colostomy Depression with anxiety Surgical History Port-A-Cath in place (03/13/24) Insertion of Access Port with Fluoroscopy into Right Internal Jugular Vein(Right) - Elizabeth Velasquez DO [place] teeth removed H/O abdominal surgery (02/05/24) Exploratory Laparoscopy Revision of Colostomy and Stoma(Not Applicable) - Elizabeth Velasquez DO History of x 2 H/O gastric sleeve (2021) History of colon resection (02/04/24) p Diagnostic Laparoscopy, with a laparoscopic colon resection, Abdominal Wash Out, Creation Colostomy(Not Applicable) - Elizabeth Velasquez DO Extensive lysis of adhesions Family History Other No family history of adverse response to anesthesia Social History Smoking Status: Never smoker Second Hand Exposure: No; Do You Dip or Chew Tobacco: No; Hx Alcohol Use: No Hx Substance Use: No Preferred Language: Niuean Communication Ability: Effective Visual Impairment: No Limitations Barrel Header Required: No Beliefs That Will Affect Care: None Current Living Situation: Spouse Feels Safe at Home: Yes Assistive Devices: Cane and Walker Review of Systems A total of 10 systems reviewed and were otherwise negative Physical Exam Vital Signs Vital Signs - 24 hr 04/08/24 07:33 04/08/24 08:00 04/08/24 08:15 Temperature 36.6 C Temperature Source Temporal Artery Scan Pulse Rate 79 70 Pulse Rate from SpO2 Sensor 70 Respiratory Rate 18 13 Respiratory Effort / Characteristics Non-Labored Spontaneous Respiratory Depth Normal Blood Pressure 110/77 Blood Pressure Mean 88 Blood Pressure Position Sitting Pulse Oximetry 97 97 99 Oxygen Delivery Method Room Air Room Air Sepsis Recent Fever Within 48 Hours No Sepsis New/Unexplained Change in Mental Status No Sepsis Action Taken by Nursing No Action Required 04/08/24 08:24 04/08/24 08:30 04/08/24 08:48 Temperature Temperature Source Pulse Rate 69 72 Pulse Rate from SpO2 Sensor 71 Respiratory Rate 16 Respiratory Effort / Characteristics Respiratory Depth Blood Pressure 125/83 Blood Pressure Mean 98 Blood Pressure Position Pulse Oximetry 97 Oxygen Delivery Method Sepsis Recent Fever Within 48 Hours Sepsis New/Unexplained Change in Mental Status Sepsis Action Taken by Nursing 04/08/24 09:30 04/08/24 09:33 04/08/24 10:00 Temperature Temperature Source Pulse Rate 75 63 Pulse Rate from SpO2 Sensor Respiratory Rate 17 16 Respiratory Effort / Characteristics Respiratory Depth Blood Pressure 129/87 Blood Pressure Mean 97 Blood Pressure Position Pulse Oximetry Oxygen Delivery Method Sepsis Recent Fever Within 48 Hours Sepsis New/Unexplained Change in Mental Status Sepsis Action Taken by Nursing VITAL SIGNS - Vital signs and nursing notes were reviewed. Stable and afebrile. GENERAL - 44-year-old female appearing her stated age who is in no acute distress. Communicates well with provider and answers questions appropriately. SKIN - Without rashes. No meningeal or petechial rash. HEAD - NC/AT. EYES - PERRL with EOMI bilaterally. Sclera anicteric. EARS - No deformities of external structures noted on gross examination bilaterally. NOSE - Midline and without cyanosis. No epistaxis or purulent drainage noted. MOUTH/OROPHARYNX - Without perioral cyanosis. NECK - Neck with FROM. No nuchal rigidity. LUNGS - CTA CARDIAC - RRR ABDOMEN - Abdominal contour normal without pulsations or visible masses. BS normoactive all four quadrants. Generalized abdominal tenderness without guarding or rigidity. No palpable masses, hepatosplenomegaly, or ascites noted. EXTREMITIES - No clubbing or peripheral cyanosis. +5/5 strength noted in UE/LE bilaterally. NEUROLOGIC - Cranial nerves II through XII grossly intact. PSYCH -alert, oriented and pleasant on exam. Course Administered Medications Sodium Chloride (Nss) 1,000 mls @ 125 mls/hr IV .Q8H [facility] Stop: 04/09/24 07:59 Last Admin: 04/08/24 08:27 Dose: 125 mls/hr Documented By: ALONSO Discontinued Medications Ioversol (Optiray 320 100ml) 94 ml IV ONCE ONE Stop: 04/08/24 08:45 Last Admin: 04/08/24 08:45 Dose: 94 ml Documented By: MARIE Ondansetron HCl (Ondansetron Inj 2 Mg/Ml 2 Ml Vial) 4 mg IV NOW STA Stop: 04/08/24 07:59 Last Admin: 04/08/24 08:27 Dose: 4 mg Documented By: ALONSO Medical Decision Making Laboratory Data 04/08/24 07:53 04/08/24 07:53 Lab Results 04/08/24 04/08/24 Range/Units 07:50 07:53 WBC 8.99 (4.8-10.8) K/ul RBC 3.99 L (4.20-5.40) M/uL Hgb 9.6 L (12.0-16.0) g/dl Hct 31.3 L (37.0-47.0) % MCV 78.4 L (80.0-100.0) fL MCH 24.1 L (25.0-34.0) pg MCHC 30.7 L (32.0-36.0) g/dL RDW Std Deviation 53.4 H (36.4-46.3) fL RDW Coeff of Mita 19.2 H (11.5-14.5) % Plt Count 219 (130-400) K/uL MPV 10.1 (9.4-12.4) fL Immature Gran % (Auto) 0.6 % Neut % (Auto) 54.0 % Lymph % (Auto) 20.2 % [facility] % (Auto) 13.9 % Eos % (Auto) 10.3 % Baso % (Auto) 1.0 % Neut # (Auto) 4.85 (1.40-6.50) K/uL Lymph # (Auto) 1.82 (1.20-3.40) K/uL [facility] # (Auto) 1.25 H (0.11-0.59) K/uL Eos # (Auto) 0.93 H (0.00-0.50) K/uL Baso # (Auto) 0.09 (0.00-0.20) K/uL Immature Gran # (Auto) 0.05 (0.01-0.20) K/uL PT 11.2 (9.0-12.0) Seconds INR 1.0 (0.9-1.1) APTT 22 (21-31) Seconds PTT Ratio 0.8 Sodium 139 (136-145) mmol/L Potassium 4.1 (3.5-5.1) mmol/L Chloride 106 (98-107) mmol/L Carbon Dioxide 27 (21-32) mmol/L Anion Gap 6 (3-11) BUN 11 (6-23) mg/dl Creatinine 0.67 (0.6-1.2) mg/dl Est Cr Clr Drug Dosing 109.2 ml/min eGFR 111.15 BUN/Creatinine Ratio 16.4 (10-20) Glucose 98 (70-99(Fasting)) mg/dl Calcium 8.7 (8.6-10.3) mg/dl Magnesium 2.0 (1.7-2.4) mg/dl Total Bilirubin 0.3 (0.2-1.0) mg/dl AST 12 L (13-39) U/L ALT 13 (7-52) U/L Alkaline Phosphatase 83 (34-104) U/L Total Protein 6.8 (6.0-8.3) gm/dl Albumin 4.1 (3.4-5.0) gm/dl Globulin 2.7 (2.5-4.0) gm/dl Albumin/Globulin Ratio 1.5 (0.9-2) Lipase 25 (11-82) U/L HCG, Qual Negative (Negative) Urine Color Yellow Urine Appearance Clear (Clear) Urine pH 7.5 (4.5-7.5) Ur Specific [place] 1.024 (1.000-1.030) Urine Protein Negative (Negative) Urine Glucose (UA) Negative (Negative) Urine Ketones Trace H (Negative) Urine Blood Negative (Negative) Urine Nitrite Negative (Negative) Urine Bilirubin Negative (Negative) Urine Urobilinogen Negative (Negative) Ur Leukocyte Esterase Negative (Negative) Imaging Data Radiologist's Impression: Abdomen/Pelvis CT 04/08/24 07:57 CT OF THE ABDOMEN AND PELVIS WITH CONTRAST CLINICAL HISTORY: Abdominal pain, emesis, adenocarcinoma. COMPARISON STUDY: PET/CT March 12, 2024. CT of the abdomen and pelvis March 27, 2024. TECHNIQUE: Following IV administration of 94 mL of Optiray, axial images of the abdomen and pelvis were obtained from the lung bases to the proximal femurs. Images were reviewed in the axial, sagittal, and coronal planes. IV contrast was administered without complication. Automated exposure control was utilized for the study. A dose lowering technique was utilized adhering to the principles of ALARA. CT DOSE: 1355.85 mGy.cm FINDINGS: A 1 cm subpleural left lower lobe opacity on image 20 of 389 favors a resolving pulmonary infarct within correlating with prior exams. No pneumatosis, free air or portal venous gas is present. A 2.3 cm right hepatic lobe lesion versus capsular implant has slightly decreased in size since prior examination. 1.1 cm right hepatic dome lesion is again noted. Conspicuity of this lesion has slightly increased. No new hepatic lesions are identified. Spleen, adrenal glands, kidneys and pancreas are unremarkable. Is no hydronephrosis. There are postoperative findings consistent with sigmoid resection with descending colostomy. Stranding within the ostomy site is unchanged. There is no fluid collection. Multiple loops of mildly dilated small bowel measure up to 3.2 cm in caliber. Transition point is likely within the lower mid abdomen on image 234 of 389. The distal small bowel is decompressed. Small bowel dilatation has slightly decreased when compared to CT of March 27, 2024. There is a small amount of ascites. Mixed cystic and solid left adnexal lesion is unchanged. Peritoneal/omental implants shown on prior exam have decreased in size. The vasculature is patent. There is no fluid collection to suggest abscess. IMPRESSION: 1. Findings consistent with a partial small bowel obstruction. Multiple loops of mildly dilated small bowel with transition point within the lower abdomen with decompressed distal small bowel. Small bowel dilatation mildly decreased when compared to CT of March 27, 2024. 2. Status post sigmoid resection with descending colostomy. 3. Mild decrease in size of a right hepatic lobe lesion/capsular implant. Decrease in size of peritoneal/omental implants. Small amount of ascites. 4. No change in a mixed cystic and solid left adnexal lesion. ACT 112: Negative or not required by law. Electronically signed by: Flip Jose M.D. 04/08/2024 9:06 AM MDM Narrative Patient was seen and evaluated as above in room A10. Review was performed of triage nursing notes and vital signs. I did review pertinent previous visits and patient history. After obtaining a thorough history and physical examination the above work up was performed. Patient presents to us today for evaluation of nausea, vomiting abdominal pain. The patient does have a significant abdominal history as of recent. On my assessment she does have an overall benign abdominal exam. She notes this is the best she has felt in the past several hours but did note that around midnight she had severe abdominal pain with vomiting. IV access with established. Labs were drawn. Noting the patient's significant past medical history as of recent we will proceed with additional imaging of the abdomen at this time to include CT scan of the abdomen/pelvis. I did review benefit versus risk with the patient and through shared medical decision making we will proceed. EKG was reviewed dated March 27, 2024. QTc at that time was 447. Will proceed with IV Zofran for nausea. IV fluids also ordered. CT scan does show partial small bowel obstruction. I reviewed the additional findings with the patient as well. I spoke with Dr. Silverman of general surgery. We agreed with NG tube placement, medical admission. I then presented the recommendation to the patient and recommended the NG tube. Patient declined NG tube and is aware of risk. I discussed case with the hospitalist service. Please refer to further documentation regarding her stay. GCS: 15 In the evaluation and treatment of this patient the following differential diagnoses were entertained: Bowel obstruction, perforation, abscess, pancreatitis, among others. Bowel obstruction, perforation, abscess, dehydration, UTI, among others. Impression & Plan Partial small bowel obstruction, Nausea & vomiting Discharge Plan Visit Data Chief Complaint: Abdominal Pain Stated Complaint: ABD PAIN,VOMITING ED Provider: Sheldon Echavarria ED Midlevel Provider: Jayy Drake Discharge Problem: Partial small bowel obstruction, Nausea & vomiting Patient Disposition: Admitted As Inpatient Condition: Good Discharge Instructions Interventions: ED Discharge Assessment Last Done: 04/08/24 11:52
[2024-04-08 08:14] LABS: Basophils # (auto) 0.09 K/uL (0.00-0.20); Eosinophils # (auto) 0.93 K/uL (0.00-0.50); Eosinophils % (auto) 10.3 %; Hematocrit (blood only) 31.3 % (37.0-47.0); Hemoglobin 9.6 g/dl (12.0-16.0); Immature Granulocytes # (auto) 0.05 K/uL (0.01-0.20); Immature Granulocytes % (auto) 0.6 %; Lymphocytes # (auto) 1.82 K/uL (1.20-3.40); Lymphocytes % (auto) 20.2 %; Mean Corpuscular Hemoglobin 24.1 pg (25.0-34.0); Mean Corpuscular Hgb Conc 30.7 g/dL (32.0-36.0); Mean Corpuscular Volume 78.4 fL (80.0-100.0); Mean Platelet Volume 10.1 fL (9.4-12.4); Monocytes # (auto) 1.25 K/uL (0.11-0.59); Monocytes % (auto) 13.9 %; Neutrophils # (auto) 4.85 K/uL (1.40-6.50); Platelet Count 219 K/uL (130-400); RDW Coefficient of Variation 19.2 % (11.5-14.5); RDW Standard Deviation 53.4 fL (36.4-46.3); Red Blood Count 3.99 M/uL (4.20-5.40); White Blood Count 8.99 K/ul (4.8-10.8)
[2024-04-08 08:21] LABS: Albumin Globulin Ratio 1.5 (0.9-2); Albumin Level 4.1 gm/dl (3.4-5.0); BUN Creatinine Ratio 16.4 (10-20); Bilirubin,Total 0.3 mg/dl (0.2-1.0); Calcium 8.7 mg/dl (8.6-10.3); Creatinine Clr Calc Pharmacy 109.2 ml/min; Globulin 2.7 gm/dl (2.5-4.0); Potassium 4.1 mmol/L (3.5-5.1); Total Protein 6.8 gm/dl (6.0-8.3)
[2024-04-08 08:23] LABS: Appearance Urine Clear (Clear); Bilirubin Urine Negative (Negative); Blood Urine Negative (Negative); Color Urine Yellow; Glucose Urine UA Negative (Negative); Ketones Urine Trace (Negative); Leukocyte Esterase Urine Negative (Negative); Nitrite Urine Negative (Negative); Protein Urine Negative (Negative); Specific Gravity Urine 1.024 (1.000-1.030); Urobilinogen Urine Negative (Negative); pH Urine 7.5 (4.5-7.5)
[2024-04-08] MEDS: SODIUM CHLORIDE 0.9% 1,000 ML IV SCH (08:27)
[2024-04-08] MEDS: ONDANSETRON INJ 2 MG/ML 2 ML VIAL IV STA (08:27)
[2024-04-08 08:28] LABS: Pregnancy Test, Serum Negative (Negative)
[2024-04-08 08:41] LABS: Partial Thromboplastin Ratio 0.8; Partial Thromboplastin Time 22 Seconds (21-31); Prothrombin Time 11.2 Seconds (9.0-12.0)
[2024-04-08] MEDS: OPTIRAY 320 100ml IV ONE (08:45)
--- NOTE | 2024-04-08 09:08 | CT Scan Report ---
CT OF THE ABDOMEN AND PELVIS WITH CONTRAST CLINICAL HISTORY: Abdominal pain, emesis, adenocarcinoma. COMPARISON STUDY: PET/CT March 12, 2024. CT of the abdomen and pelvis March 27, 2024. TECHNIQUE: Following IV administration of 94 mL of Optiray, axial images of the abdomen and pelvis we re obtained from the lung bases to the proximal femurs. Images were reviewed in the axial, sagittal, and coronal planes. IV contrast was administered without complication. Automated exposure control wa s utilized for the study. A dose lowering technique was utilized adhering to the principles of ALARA . CT DOSE: 1355.85 mGy.cm FINDINGS: A 1 cm subpleural left lower lobe opacity on image 20 of 389 favors a resolving pulmonary i nfarct within correlating with prior exams. No pneumatosis, free air or portal venous gas is present. A 2.3 cm right hepatic lobe lesion versus capsular implant has slightly decreased in size since prio r examination. 1.1 cm right hepatic dome lesion is again noted. Conspicuity of this lesion has slight ly increased. No new hepatic lesions are identified. Spleen, adrenal glands, kidneys and pancreas are unremarkable. Is no hydronephrosis. There are postoperative findings consistent with sigmoid resecti on with descending colostomy. Stranding within the ostomy site is unchanged. There is no fluid collec tion. Multiple loops of mildly dilated small bowel measure up to 3.2 cm in caliber. Transition point is likely within the lower mid abdomen on image 234 of 389. The distal small bowel is decompressed. S mall bowel dilatation has slightly decreased when compared to CT of March 27, 2024. There is a sma ll amount of ascites. Mixed cystic and solid left adnexal lesion is unchanged. Peritoneal/omental imp lants shown on prior exam have decreased in size. The vasculature is patent. There is no fluid collec tion to suggest abscess. IMPRESSION: 1. Findings consistent with a partial small bowel obstruction. Multiple loops of mildly dilated small bowel with transition point within the lower abdomen with decompressed distal small bowel. Small bow el dilatation mildly decreased when compared to CT of March 27, 2024. 2. Status post sigmoid resection with descending colostomy. 3. Mild decrease in size of a right hepatic lobe lesion/capsular implant. Decrease in size of periton eal/omental implants. Small amount of ascites. 4. No change in a mixed cystic and solid left adnexal lesion. ACT 112: Negative or not required by law. Electronically signed by: Flip Jose M.D. 04/08/2024 9:06 AM
--- NOTE | 2024-04-08 09:37 | History & Physical Report ---
Date of Service April 08, 2024 Assessment & Plan (1) Partial small bowel obstruction: Plan Ms. King is a 44-year-old female with PMH recently diagnosed metastatic colon adenocarcinoma (mets to liver and peritoneum), perforated diverticulitis/ adenocarcinoma s/p colostomy on 02/05, pulmonary embolism anticoagulated on Eliquis, C. difficile s/p treatment, and other problems listed below admitted for partial small bowel obstruction. Patient with minimal pain at this time. Conservative management for now #Partial small bowel obstruction: In the ED, CT ABD/pelvis showing evidence of partial small bowel obstruction General surgery consulted - conservative management NG if vomiting Continue IVF CLD encourage ambulation # Adenocarcinoma of colon Diagnosed January 2024 with mets to liver and peritoneum In the setting of perforation s/p colostomy Follows with Dr. 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 History of Present Illness Chief Complaint: abdominal pain Primary Care Provider: Annie Ch DO Ms. King is a 44-year-old female with PMH recently diagnosed metastatic colon adenocarcinoma (mets to liver and peritoneum), perforated diverticulitis/ adenocarcinoma s/p colostomy on 02/05, pulmonary embolism anticoagulated on Eliquis, C. difficile s/p treatment presented to [facility] ED due to abdominal pain and admitted for partial small bowel obstruction. Patient states she was in usual state of health when sudden diffuse abdominal pain started. Patient with ostomy output and seeming resolution of pain at this time. Reports prior periostotomy ulceration resolved. Denies any nausea or vomiting at this time, but noted that there was nausea on arrival reports resolution of pain on exam Patient describes adherence to low fiber diet In the ED, vitals were notable for BP of 100s, HR of 60s, and O2 sat of high 90s on room air Imaging revealed Findings consistent with a partial small bowel obstruction. Multiple loops of mildly dilated small bowel with transition point within the lower abdomen with decompressed distal small bowel. Small bowel dilatation mildly decreased when compared to CT of March 27, 2024. ED interventions: JOHNNIE patel Consultants: surgery Patient to be admitted to med surg for further evaluation and management of partial bowel obstruction Allergies Allergy/AdvReac Type Severity Reaction Status Date / Time No Known Allergies Allergy Verified 04/08/24 10:14 Home Medications Medication Instructions Recorded Confirmed Type lorazepam 0.5 mg tablet (Ativan) 0.5 mg PO BID PRN anxiety #30 tabs 02/13/24 04/08/24 Rx famotidine 20 mg tablet 20 mg PO BID Acid Reflux 03/03/24 04/08/24 History apixaban 5 mg tablet (Eliquis) 5 mg PO BID 03/27/24 04/08/24 History escitalopram oxalate 20 mg tablet 20 mg PO QAM 03/27/24 04/08/24 History ondansetron HCl 8 mg tablet 8 mg PO Q8H PRN Nausea 03/27/24 04/08/24 History prochlorperazine maleate 10 mg 10 mg PO Q6H PRN n/v 03/27/24 04/08/24 History tablet oxycodone 5 mg tablet 5 mg PO .EVERY 4-6 HOURS PRN Pain 04/08/24 04/08/24 History Past Med/Surg History Problem List Nausea & vomiting (Acute) Small bowel obstruction (Acute) Partial small bowel obstruction (Acute) Pulmonary embolism (Acute) 02/16/24- on Eliquis Status post exploratory laparotomy Adenocarcinoma, colon Panic attack due to exceptional stress Adjustment disorder with anxious mood Anemia (Acute) Gastric bypass status for obesity Medical History Peritonitis Abdominal pain Acute diverticulitis History of Clostridium difficile infection diagnosed 02/09/24 while admitted in hospital - treated with Vancomycin until 02/27/24 Colostomy present done 02/04/24 stoma revised 02/06/24 with an additional 4.5cm of the colon removed History of diverticulitis history of multiple flares over the past year Hx of deep venous thrombosis (2010) - s/p childbirth in 2010- was on blood thinner for short time - no DVT noted with PE on 02/16/24 Hx of migraines History of panic attacks History of pulmonary embolism dx 02/16/24 at [place]>started on Eliquis provoked by malignancy and surgical intervention per records dopplers negative for DVT Adenocarcinoma of colon dx'ed 01/2024 Perforated sigmoid colon - 02/03/24 due to enlarging mass (adenocarcinoma of the colon) - 02/04/24 underwent partial left colon resection and end colostomy Depression with anxiety Surgical History Port-A-Cath in place (03/13/24) Insertion of Access Port with Fluoroscopy into Right Internal Jugular Vein(Right) - Elizabeth Velasquez DO [place] teeth removed H/O abdominal surgery (02/05/24) Exploratory Laparoscopy Revision of Colostomy and Stoma(Not Applicable) - Lyle Velasquez DO History of x 2 H/O gastric sleeve (2021) History of colon resection (02/04/24) p Diagnostic Laparoscopy, with a laparoscopic colon resection, Abdominal Wash Out, Creation Colostomy(Not Applicable) - Elizabeth Velasquez DO Extensive lysis of adhesions Family History Other No family history of adverse response to anesthesia Social History Smoking Status: Never smoker Second Hand Exposure: No; Do You Dip or Chew Tobacco: No; Hx Alcohol Use: No Hx Substance Use: No Preferred Language: Kinyarwanda Communication Ability: Effective Visual Impairment: No Limitations Ground Transportation Operator Required: No Beliefs That Will Affect Care: None Current Living Situation: Spouse Feels Safe at Home: Yes Assistive Devices: Cane and Walker Review of Systems Review of Systems: Constitutional: (-) fever/chills, (-) recent loss of weight, (-) appetite changes, (-) night sweats. Head: (-) headache, (-) dizziness. Eye: (-) blurring of vision, (-) double vision, (-) redness. Ear: (-) hearing loss, (-) discharge, (-) vertigo Nose: (-) discharge, (-) bleeding, (-) congestion, (-) post nasal drip. Throat: (-) sore throat, (-) hoarseness of voice, (-) odynophagia. Cardiovascular: (-) chest pain, (-) palpitations, (-) syncope, (-) orthopnea, (- ) PND, (-) leg swelling. Respiratory: (-) shortness of breath, (-) cough, (-) wheezing, (-) hemoptysis. Neuro: (-) weakness in extremities, (-) numbness, (-) tingling, (-) tremor. Gastrointestinal: (++) belly pain, (-) belly distension, (+) nausea, (-) vomiting, (-) diarrhea, (-) constipation Genitourinary: (-) hematuria, (-) dysuria, (-) polyuria, (-) hesitancy, (-) frequency, (-) urinary incontinence. Musculoskeletal: (-) myalgia, (-) arthralgia. Skin: (-) rashes. Endocrine: (-) heat/cold intolerance. Psychiatry: (-) depression, (-) hallucination. Physical Exam Physical Exam: GENERAL APPEARANCE: AxOx4, generally well-appearing f, no acute distress. HEENT: NC, AT. MMM. EOMI, clear conjunctiva, oropharynx clear. NECK: Supple without lymphadenopathy. No stiffness or restricted ROM. HEART: Normal rate and regular rhythm, normal S1/S1, no m/r/g LUNGS: CTAB, moving air well. No crackles or wheezes are heard. ABDOMEN: Soft, nontender, nondistended with good bowel sounds heard. ostomy with pink mucosa, liquid stool in ostomy bag BACK: No CVAT, no obvious deformity. EXTREMITIES: Without cyanosis, clubbing or edema. NEUROLOGICAL: Grossly nonfocal. Alert and oriented, moving all 4 extremities. CN not formally tested but appear grossly intact. Skin: Warm and dry without any rash. Results & Data Results & Data Vital Signs (Past 12 Hours) Vital Signs Temp Pulse Resp BP Pulse Ox O2 Del Method 04/08/24 08:24 69 04/08/24 08:00 97 Room Air 01/01/25 07:33 36.6 C 79 18 110/77 97 Room Air Laboratory Results Short CBC 04/08/24 Range/Units 07:53 WBC 8.99 (4.8-10.8) K/ul Hgb 9.6 L (12.0-16.0) g/dl Hct 31.3 L (37.0-47.0) % Plt Count 219 (130-400) K/uL BMP 04/08/24 07:53 Sodium 139 Potassium 4.1 Chloride 106 Carbon Dioxide 27 BUN 11 Creatinine 0.67 Glucose 98 Calcium 8.7 Liver Function 04/08/24 Range/Units 07:53 Total Bilirubin 0.3 (0.2-1.0) mg/dl AST 12 L (13-39) U/L ALT 13 (7-52) U/L Alkaline Phosphatase 83 (34-104) U/L Albumin 4.1 (3.4-5.0) gm/dl Urine 04/08/24 Range/Units 07:50 Urine Color Yellow Urine Appearance Clear (Clear) Urine pH 7.5 (4.5-7.5) Ur Specific [place] 1.024 (1.000-1.030) Urine Protein Negative (Negative) Urine Glucose (UA) Negative (Negative) Diagnostic Findings Home Medications Medication Instructions Recorded Confirmed Last Taken lorazepam 0.5 mg tablet (Ativan) 0.5 mg PO BID PRN anxiety #30 tabs 02/13/24 04/08/24 04/07/24 famotidine 20 mg tablet 20 mg PO BID Acid Reflux 03/03/24 04/08/24 04/07/24 apixaban 5 mg tablet (Eliquis) 5 mg PO BID 03/27/24 04/08/24 04/07/24 escitalopram oxalate 20 mg tablet 20 mg PO QAM 03/27/24 04/08/24 04/07/24 ondansetron HCl 8 mg tablet 8 mg PO Q8H PRN Nausea 03/27/24 04/08/24 04/07/24 23:00 prochlorperazine maleate 10 mg 10 mg PO Q6H PRN n/v 03/27/24 04/08/24 04/08/24 03:30 tablet oxycodone 5 mg tablet 5 mg PO .EVERY 4-6 HOURS PRN Pain 04/08/24 04/08/24 Unknown Active Medications Generic Name Dose Route Start Last Admin Trade Name Harshal PRN Reason Stop Dose Admin Sodium Chloride 1,000 mls @ 125 mls/hr 04/08/24 08:00 04/08/24 08:27 Nss IV 04/09/24 07:59 125 mls/hr .Q8H LORETTA Administration Medications Administered Home Medications Medication Instructions Recorded Confirmed Last Taken lorazepam 0.5 mg tablet (Ativan) 0.5 mg PO BID PRN anxiety #30 tabs 02/13/24 04/08/24 04/07/24 famotidine 20 mg tablet 20 mg PO BID Acid Reflux 03/03/24 04/08/24 04/07/24 apixaban 5 mg tablet (Eliquis) 5 mg PO BID 03/27/24 04/08/24 04/07/24 escitalopram oxalate 20 mg tablet 20 mg PO QAM 03/27/24 04/08/24 04/07/24 ondansetron HCl 8 mg tablet 8 mg PO Q8H PRN Nausea 03/27/24 04/08/24 04/07/24 23:00 prochlorperazine maleate 10 mg 10 mg PO Q6H PRN n/v 03/27/24 04/08/24 04/08/24 03:30 tablet oxycodone 5 mg tablet 5 mg PO .EVERY 4-6 HOURS PRN Pain 04/08/24 04/08/24 Unknown Active Medications Generic Name Dose Route Start Last Admin Trade Name Harshal PRN Reason Stop Dose Admin Sodium Chloride 1,000 mls @ 125 mls/hr 04/08/24 08:00 04/08/24 08:27 Nss IV 04/09/24 07:59 125 mls/hr .Q8H LORETTA Administration
--- NOTE | 2024-04-08 12:17 | Surgery Consultation ---
Date of Consultation April 08, 2024 Assessment & Plan (1) Partial small bowel obstruction: NG if vomiting IVF clear liquid diet ambulate History of Present Illness Attending Physician: Nighat Olivo MD History of Present Illness This is a 44-year-old female with a history of metastatic adenocarcinoma of the colon, history of pulmonary embolism currently on Eliquis, history of C. difficile, history of perforated diverticulitis/adenocarcinoma with colostomy in January of this past year that came to ED abdominal pain and vomiting; decreasing output from her colostomy. She has a history of recurrent SBO which resolve with conservative measures. The patient currently undergoing chemotherapy for her metastatic disease with carcinomatosis. Patient notes last chemotherapy session was [place] [facility]. There has been better output from colostomy and pain improved since being seen in ED. CT scan will SBO picture. Allergies Allergy/AdvReac Type Severity Reaction Status Date / Time No Known Allergies Allergy Verified 04/08/24 10:14 Home Medications Medication Instructions Recorded Confirmed Type lorazepam 0.5 mg tablet (Ativan) 0.5 mg PO BID PRN anxiety #30 tabs 02/13/24 04/08/24 Rx famotidine 20 mg tablet 20 mg PO BID Acid Reflux 03/03/24 04/08/24 History apixaban 5 mg tablet (Eliquis) 5 mg PO BID 03/27/24 04/08/24 History escitalopram oxalate 20 mg tablet 20 mg PO QAM 03/27/24 04/08/24 History ondansetron HCl 8 mg tablet 8 mg PO Q8H PRN Nausea 03/27/24 04/08/24 History prochlorperazine maleate 10 mg 10 mg PO Q6H PRN n/v 03/27/24 04/08/24 History tablet oxycodone 5 mg tablet 5 mg PO .EVERY 4-6 HOURS PRN Pain 04/08/24 04/08/24 History Patient History Medical History Peritonitis Abdominal pain Acute diverticulitis History of Clostridium difficile infection diagnosed 02/09/24 while admitted in hospital - treated with Vancomycin until 02/27/24 Colostomy present done 02/04/24 stoma revised 02/06/24 with an additional 4.5cm of the colon removed History of diverticulitis history of multiple flares over the past year Hx of deep venous thrombosis (2010) - s/p childbirth in 2010- was on blood thinner for short time - no DVT noted with PE on 02/16/24 Hx of migraines History of panic attacks History of pulmonary embolism dx 02/16/24 at [place]>started on Eliquis provoked by malignancy and surgical intervention per records dopplers negative for DVT Adenocarcinoma of colon dx'ed 01/2024 Perforated sigmoid colon - 02/03/24 due to enlarging mass (adenocarcinoma of the colon) - 02/04/24 underwent partial left colon resection and end colostomy Depression with anxiety Surgical History Port-A-Cath in place (03/13/24) Insertion of Access Port with Fluoroscopy into Right Internal Jugular Vein(Right) - Elizabeth Velasquez DO [place] teeth removed H/O abdominal surgery (02/05/24) Exploratory Laparoscopy Revision of Colostomy and Stoma(Not Applicable) - Elizabeth Velasquez DO History of x 2 H/O gastric sleeve (2021) History of colon resection (02/04/24) p Diagnostic Laparoscopy, with a laparoscopic colon resection, Abdominal Wash Out, Creation Colostomy(Not Applicable) - Elizabeth Velasquez DO Extensive lysis of adhesions Family History Other No family history of adverse response to anesthesia Social History Smoking Status: Never smoker Second Hand Exposure: No; Do You Dip or Chew Tobacco: No; Hx Alcohol Use: No Hx Substance Use: No Preferred Language: Cameroonian Communication Ability: Effective Visual Impairment: No Limitations Armor Officer Required: No Beliefs That Will Affect Care: None Current Living Situation: Spouse Feels Safe at Home: Yes Assistive Devices: Cane and Walker Review of Systems Constitutional: no fever and no chills Eyes: no problem reported Ear, Nose, Mouth, Throat: no problem reported Respiratory: no cough and no dyspnea Cardiovascular: no chest pain Gastrointestinal: + abdominal pain and + change in bowel h abits; no nausea and no vomiting Genitourinary: no dysuria Musculoskeletal: no back pain Integumentary: no problem reported Neurologic: no localized weakness and no generalized weakness Psychiatric: no behavioral changes Physical Exam Constitutional: WD/WN, vitals as above Eyes: PERRL, conjunctivae normal, anicteric sclerae Respiratory: normal respiratory effort, lungs clear to auscultation Cardiovascular: RRR, no murmur, no edema Gastrointestinal (Abdomen): Inspection/Auscultation: abdomen normal to inspection and normal bowel sounds; abdomen not distended Percussion/Palpation: abdomen soft; abdomen nontender, no guarding and abdomen not rigid ostomy pink and patent Musculoskeletal: Head/Neck/Chest: normocephalic and head atraumatic Skin: no rashes, warm and dry Results & Data Vital Signs (Past 12 Hours) Vital Signs Temp Pulse Resp BP Pulse Ox O2 Del Method 04/08/24 11:13 116/81 04/08/24 11:06 62 14 04/08/24 10:00 63 16 04/08/24 09:33 75 17 04/08/24 09:30 129/87 04/08/24 08:48 72 16 97 04/08/24 08:30 125/83 04/08/24 08:24 69 04/08/24 08:15 70 13 99 04/08/24 08:00 97 Room Air 04/08/24 07:33 36.6 C 79 18 110/77 97 Room Air Diagnostic Findings CT OF THE ABDOMEN AND PELVIS WITH CONTRAST CLINICAL HISTORY: Abdominal pain, emesis, adenocarcinoma. COMPARISON STUDY: PET/CT March 12, 2024. CT of the abdomen and pelvis March 27, 2024. TECHNIQUE: Following IV administration of 94 mL of Optiray, axial images of the abdomen and pelvis were obtained from the lung bases to the proximal femurs. Images were reviewed in the axial, sagittal, and coronal planes. IV contrast was administered without complication. Automated exposure control was utilized for the study. A dose lowering technique was utilized adhering to the principles of ALARA. CT DOSE: 1355.85 mGy.cm FINDINGS: A 1 cm subpleural left lower lobe opacity on image 20 of 389 favors a resolving pulmonary infarct within correlating with prior exams. No pneumatosis, free air or portal venous gas is present. A 2.3 cm right hepatic lobe lesion versus capsular implant has slightly decreased in size since prior examination. 1.1 cm right hepatic dome lesion is again noted. Conspicuity of this lesion has slightly increased. No new hepatic lesions are identified. Spleen, adrenal glands, kidneys and pancreas are unremarkable. Is no hydronephrosis. There are postoperative findings consistent with sigmoid resection with descending colostomy. Stranding within the ostomy site is unchanged. There is no fluid col lection. Multiple loops of mildly dilated small bowel measure up to 3.2 cm in caliber. Transition point is likely within the lower mid abdomen on image 234 of 389. The distal small bowel is decompressed. Small bowel dilatation has slightly decreased when compared to CT of March 27, 2024. There is a small amount of ascites. Mixed cystic and solid left adnexal lesion is unchanged. Peritoneal/omental implants shown on prior exam have decreased in size. The vasculature is patent. There is no fluid collection to suggest abscess. IMPRESSION: 1. Findings consistent with a partial small bowel obstruction. Multiple loops of mildly dilated small bowel with transition point within the lower abdomen with decompressed distal small bowel. Small bowel dilatation mildly decreased when compared to CT of March 27, 2024. 2. Status post sigmoid resection with descending colostomy. 3. Mild decrease in size of a right hepatic lobe lesion/capsular implant. Decrease in size of peritoneal/omental implants. Small amount of ascites. 4. No change in a mixed cystic and solid left adnexal lesion.
[2024-04-08] MEDS ORDERED: LORazepam 0.5 MG TAB PO PRN (15:03)
[2024-04-08] MEDS ORDERED: CALCIUM CARBONATE 500 MG CHEWABLE TAB PO PRN (15:03)
[2024-04-08] MEDS ORDERED: PROCHLORPERAZINE MALEATE 10 MG TAB PO PRN (15:03)
[2024-04-08] MEDS: ONDANSETRON 4 MG OD TAB PO PRN (16:41)
[2024-04-08] MEDS: FAMOTIDINE 20 MG TAB PO SCH (20:03)
[2024-04-08] MEDS: KETOROLAC TROMETHAMINE 15 MG/ML VIAL IV ONE (21:36)
[2024-04-08] MEDS: LORazepam 1 MG TAB PO PRN (22:35)
[2024-04-09] MEDS: ACETAMINOPHEN 325 MG TAB PO PRN (06:19)
[2024-04-09 08:28] LABS: Hematocrit (blood only) 26.8 % (37.0-47.0); Hemoglobin 8.1 g/dl (12.0-16.0); Mean Corpuscular Hemoglobin 24.2 pg (25.0-34.0); Mean Corpuscular Hgb Conc 30.2 g/dL (32.0-36.0); Mean Platelet Volume 10.5 fL (9.4-12.4); Platelet Count 171 K/uL (130-400); RDW Coefficient of Variation 19.3 % (11.5-14.5); RDW Standard Deviation 54.6 fL (36.4-46.3); Red Blood Count 3.35 M/uL (4.20-5.40); White Blood Count 6.36 K/ul (4.8-10.8)
[2024-04-09 08:53] LABS: BUN Creatinine Ratio 9.5 (10-20); Creatinine Clr Calc Pharmacy 98.1 ml/min; Magnesium 1.9 mg/dl (1.7-2.4); Phosphorus 4.4 mg/dl (2.5-4.9); Potassium 3.9 mmol/L (3.5-5.1)
--- NOTE | 2024-04-09 08:53 | Surgery Progress Note ---
Date of Service April 09, 2024 Assessment & Plan (1) Small bowel obstruction: Plan: good ostomy output advance diet as patient wishes ressolving partial SBO Admission and Anticipated Discharge Date Admission Date: April 08, 2024 Subjective feels better trying po this AM Review of Systems Constitutional: no fever and no chills Respiratory: no cough and no dyspnea Cardiovascular: no chest pain Gastrointestinal: + nausea; no abdominal pain and no vomit ing Genitourinary: no dysuria Neurologic: no localized weakness and no generalized weakness Psychiatric: no behavioral changes Physical Exam Constitutional: WD/WN, vitals as above Respiratory: normal respiratory effort, lungs clear to auscultation Cardiovascular: RRR, no murmur, no edema Gastrointestinal (Abdomen): Inspection/Auscultation: abdomen normal to inspection and normal bowel sounds; abdomen not distended Percussion/Palpation: abdomen soft; abdomen nontender, no guarding and abdomen not rigid ostomy working well Musculoskeletal: Head/Neck/Chest: normocephalic and head atraumatic Results & Data Vital Signs (Past 12 Hours) Vital Signs Temp Pulse Resp BP Pulse Ox O2 Del Method 04/09/24 06:56 36.5 C 58 L 16 114/78 96 Room Air
[2024-04-09] MEDS: ESCITALOPRAM OXALATE 20 MG TAB PO SCH (08:58)
--- NOTE | 2024-04-09 16:41 | Hospitalist Progress Note ---
Date of Service April 09, 2024 Assessment & Plan (1) Partial small bowel obstruction: Plan Ms. King is a 44-year-old female with PMH recently diagnosed metastatic colon adenocarcinoma (mets to liver and peritoneum), perforated diverticulitis/ adenocarcinoma s/p colostomy on 02/05, pulmonary embolism anticoagulated on Eliquis, C. difficile s/p treatment, and other problems listed below admitted for partial small bowel obstruction. #Partial small bowel obstruction: Patient presented with abdominal pain and discomfort. In the ED, CT ABD/pelvis showing evidence of partial small bowel obstruction Patient was managed with conservative measures with improvement in the symptoms; started on clear liquid diet and is being gradually advance. Encourage ambulation. # Adenocarcinoma of colon Diagnosed January 2024 with mets to liver and peritoneum In the setting of p erforation s/p colostomy Follows with Dr. 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 if patient continues to clinically stable. Please note the above document was generated using voice recognition software. It may contain grammatical, syntax or spelling errors. Any formal questions or concerns about the content, text or information contained within the body of this dictation should be directly addressed to the provider for clarification Admission and Anticipated Discharge Date Admission Date: April 08, 2024 Subjective Patient reports improvement in symptoms. Colostomy with output present No nausea or vomiting. Review of Systems Review of Systems: All systems reviewed & are unremarkable except as noted in Subjective Physical Exam Physical Exam: GENERAL APPEARANCE: AxOx4, generally well-appearing f, no acute distress. HEENT: NC, AT. MMM. EOMI, clear conjunctiva, oropharynx clear. NECK: Supple without lymphadenopathy. No stiffness or restricted ROM. HEART: Normal rate and regular rhythm, normal S1/S1, no m/r/g LUNGS: CTAB, moving air well. No crackles or wheezes are heard. ABDOMEN: Soft, nontender, nondistended with good bowel sounds heard. ostomy with pink mucosa, liquid stool in ostomy bag BACK: No CVAT, no obvious deformity. EXTREMITIES: Without cyanosis, clubbing or edema. NEUROLOGICAL: Grossly nonfocal. Alert and oriented, moving all 4 extremities. CN not formally tested but appear grossly intact. Skin: Warm and dry without any rash. Results & Data Results & Data Vital Signs (Past 12 Hours) Vital Signs Temp Pulse Resp BP Pulse Ox O2 Del Method 04/09/24 14:40 36.9 C 59 L 16 113/77 98 Room Air 04/09/24 06:56 36.5 C 58 L 16 114/78 96 Room Air
[2024-04-09] MEDS: APIXABAN 5 MG TABLET PO SCH (20:24)
[2024-04-10 06:58] VITALS: BP 120/78; PULSE 63; RESP 16; TEMP 97.5; O2SAT 97
--- NOTE | 2024-04-10 08:30 | Surgery Progress Note ---
<Statement entered by Elizabeth Velasquez DO - 04/10/24 10:25> I have seen and examined this patient. She admits she is having flatus and stool output from her colostomy. Will add a PPI to her regimen. If she does continues to do well with her diet today, she may be discharged after lunch. Date of Service April 10, 2024 Assessment & Plan (1) Small bowel obstruction: Plan: resolving sbo, + ostomy op denies n/v abd soft vss c/o abd cramping after eating rec keeping another day on low fiber diet Admission and Anticipated Discharge Date Admission Date: April 08, 2024 Subjective some abd cramping overnight has resolved. denies pain, n/v, f/c, sob, cp +ostomy o/p Review of Systems Constitutional: no fever and no chills Respiratory: no dyspnea Cardiovascular: no chest pain Gastrointestinal: no abdominal pain, no nausea and no vomiting Musculoskeletal: no muscle weakness Psychiatric: no confusion Physical Exam Constitutional: cooperative and comfortable; no acute distress Respiratory: normal respiratory effort; no respiratory distress Cardiovascular: Rate/Rhythm: regular rate Gastrointestinal (Abdomen): Inspection/Auscultation: + abdominal surgical scar; abdomen not distended Percussion/Palpation: abdomen soft; abdomen nontender Psychiatric: Orientation: alert and oriented x 3 Results & Data Vital Signs (Past 12 Hours) Vital Signs Temp Pulse Resp BP Pulse Ox O2 Del Method 04/10/24 06:57 97.5 F L 63 16 120/78 97 Room Air PG Care Time/CCT Total # of Minutes Spent Total Time Spent with Patient: Total time spent is greater than 50% in coordination of care (as documented) at patient's floor/unit and/or counseling patient: Coding Level of Care Code 28863 SUB INP/OBS CARE 05/02MIN Diagnoses Small bowel obstruction K56.609
[2024-04-10] MEDS: PANTOprazole 40 MG TAB PO SCH (09:57)
--- NOTE | 2024-04-10 10:14 | Hospitalist Progress Note ---
Date of Service April 10, 2024 Assessment & Plan (1) Partial small bowel obstruction: Plan Ms. King is a 44-year-old female with PMH recently diagnosed metastatic colon adenocarcinoma (mets to liver and peritoneum), perforated diverticulitis/ adenocarcinoma s/p colostomy on 02/05, pulmonary embolism anticoagulated on Eliquis, C. difficile s/p treatment, and other problems listed below admitted for partial small bowel obstruction. #Partial small bowel obstruction: Patient presented with abdominal pain and discomfort. In the ED, CT ABD/pelvis showing evidence of partial small bowel obstruction Patient was managed with conservative measures with improvement in the symptoms; started on clear liquid diet and is being gradually advance. Encourage ambulation. # Adenocarcinoma of colon Diagnosed January 2024 with mets to liver and peritoneum In the setting of p erforation s/p colostomy Follows with Dr. Angulo at [facility] s/p first dose of FOLFOX/Avastin on 03/31 # Pulmonary embolism: Anticoagulated on Eliquis,resumed #Adjustment disorder with anxious mood: Continue [employer] escitalopram continue prn ativan DVT eliquis DispositionPatient admitted for small bowel obstruction; gradually improving. Discharged home if she continues to tolerate low fiber diet. Please note the above document was generated using voice recognition software. It may contain grammatical, syntax or spelling errors. Any formal questions or concerns about the content, text or information contained within the body of this dictation should be directly addressed to the provider for clarification Admission and Anticipated Discharge Date Admission Date: April 08, 2024 Subjective Patient seen and examined at bedside. She is comfortable; not in distress Reports of abdominal cramping after meals intermittently Ostomy with output present. Review of Systems Review of Systems: All systems reviewed & are unremarkable except as noted in Subjective Physical Exam Physical Exam: GENERAL APPEARANCE: AxOx4, generally well-appearing f, no acute distress. HEENT: NC, AT. MMM. EOMI, clear conjunctiva, oropharynx clear. NECK: Supple without lymphadenopathy. No stiffness or restricted ROM. HEART: Normal rate and regular rhythm, normal S1/S1, no m/r/g LUNGS: CTAB, moving air well. No crackles or wheezes are heard. ABDOMEN: Soft, nontender, nondistended with good bowel sounds heard. ostomy with pink mucosa, liquid stool in ostomy bag BACK: No CVAT, no obvious deformity. EXTREMITIES: Without cyanosis, clubbing or edema. NEUROLOGICAL: Grossly nonfocal. Alert and oriented, moving all 4 extremities. CN not formally tested but appear grossly intact. Skin: Warm and dry without any rash. Results & Data Results & Data Vital Signs (Past 12 Hours) Vital Signs Temp Pulse Resp BP Pulse Ox O2 Del Method 04/10/24 06:57 36.4 C L 63 16 120/78 97 Room Air
--- NOTE | 2024-04-10 15:18 | Discharge Summary ---
Date of Service April 10, 2024 Admission HPI Per Admitting Provider Ms. King is a 44-year-old female with PMH recently diagnosed metastatic colon adenocarcinoma (mets to liver and peritoneum), perforated diverticulitis/ adenocarcinoma s/p colostomy on 02/05, pulmonary embolism anticoagulated on Eliquis, C. difficile s/p treatment presented to [facility] ED due to abdominal pain and admitted for partial small bowel obstruction. Patient states she was in usual state of health when sudden diffuse abdominal pain started. Patient with ostomy output and seeming resolution of pain at this time. Reports prior periostotomy ulceration resolved. Denies any nausea or vomiting at this time, but noted that there was nausea on arrival reports resolution of pain on exam Patient describes adherence to low fiber diet In the ED, vitals were notable for BP of 100s, HR of 60s, and O2 sat of high 90s on room air Imaging revealed Findings consistent with a partial small bowel obstruction. Multiple loops of mildly dilated small bowel with transition point within the lower abdomen with decompressed distal small bowel. Small bowel dilatation mildly decreased when compared to CT of March 27, 2024. ED interventions: JOHNNIE patel Consultants: surgery Patient to be admitted to med surg for further evaluation and management of partial bowel obstruction Admission Exam Per Admitting Provider GENERAL APPEARANCE: AxOx4, generally well-appearing f, no acute distress. HEENT: NC, AT. MMM. EOMI, clear conjunctiva, oropharynx clear. NECK: Supple without lymphadenopathy. No stiffness or restricted ROM. HEART: Normal rate and regular rhythm, normal S1/S1, no m/r/g LUNGS: CTAB, moving air well. No crackles or wheezes are heard. ABDOMEN: Soft, nontender, nondistended with good bowel sounds heard. ostomy with pink mucosa, liquid stool in ostomy bag BACK: No CVAT, no obvious deformity. EXTREMITIES: Without cyanosis, clubbing or edema. NEUROLOGICAL: Grossly nonfocal. Alert and oriented, moving all 4 extremities. CN not formally tested but appear grossly intact. Skin: Warm and dry without any rash. Principal Diagnosis Partial small bowel obstruction Discharge Exam GENERAL APPEARANCE: AxOx4, generally well-appearing f, no acute distress. HEENT: NC, AT. MMM. EOMI, clear conjunctiva, oropharynx clear. NECK: Supple without lymphadenopathy. No stiffness or restricted ROM. HEART: Normal rate and regular rhythm, normal S1/S1, no m/r/g LUNGS: CTAB, moving air well. No crackles or wheezes are heard. ABDOMEN: Soft, nontender, nondistended with good bowel sounds heard. ostomy with pink mucosa, liquid stool in ostomy bag BACK: No CVAT, no obvious deformity. EXTREMITIES: Without cyanosis, clubbing or edema. NEUROLOGICAL: Grossly nonfocal. Alert and oriented, moving all 4 extremities. CN not formally tested but appear grossly intact. Skin: Warm and dry without any rash. Discharge Data Allergies Allergy/AdvReac Type Severity Reaction Status Date / Time No Known Allergies Allergy Verified 04/08/24 10:14 Consultations 04/08/24 09:39 ED Decision to Admit Stat 04/08/24 11:52 Consult General Surgery Routine Ordered Studies 04/08/24 07:57 CT abd pelvis IV con only Stat Hospital Course (1) Partial small bowel obstruction: Plan Ms. King is a 44-year-old female with PMH recently diagnosed metastatic colon adenocarcinoma (mets to liver and peritoneum), perforated diverticulitis/ adenocarcinoma s/p colostomy on 02/05, pulmonary embolism anticoagulated on Eliquis, C. difficile s/p treatment, and other problems listed below admitted for partial small bowel obstruction. Partial small bowel obstruction: Patient presented with abdominal pain and discomfort. In the ED, CT ABD/pelvis showing evidence of partial small bowel obstruction Patient was managed with conservative measures with improvement in the symptoms; started on clear liquid diet and is being gradually advance. Patient was tolerating low fiber diet at discharge. Patient was given information regarding low fiber diet at the time of the discharge. Patient to follow-up with PCP and oncology. Please note the above document was generated using voice recognition software. It may contain grammatical, syntax or spelling errors. Any formal questions or concerns about the content, text or information contained within the body of this dictation should be directly addressed to the provider for clarification Total Time Total Time Spent Total Time Spent (In Minutes): 45 Total Time Includes: Examination of the Patient, Discharge Planning, Medication Reconciliation, Communication With Other Providers and Other Discharge Plan Discharge Items Patient Disposition: Home - Home Health Services Reason For Visit: SBO Discharge Diagnosis: Small bowel obstruction Condition on Discharge: Good Activity: Resume your previous activity Non-emergency contact: Primary Care Provider Call non-emergency contact if: you have any medication questions and your symptoms worsen Follow-up/Referrals: Annie Ch DO [Primary Care Provider] - 04/16/24 2:00 pm (Date & Time 04/16/2024 2:00 PM Provider: Susan Eden CRNP Department: Family Medicine [facility] ) Diet: Low Fiber Addtl Attending Provider Instructions: You were admitted to the hospital with a small bowel obstruction. Please continue to take low fiber diet as discussed. You are prescribed Protonix to be taken once a day. Pending Studies at Discharge: No Stand-Alone Forms: My [facility] [employer], Smoking Cessation Medications and DC Order Prescriptions: New pantoprazole 40 mg Tablet,Delayed Release (Dr/Ec) 40 mg PO DAILY 90 Days Qty: 90 0RF Continued ondansetron HCl 8 mg tablet 8 mg PO Q8H PRN (Reason: Nausea) prochlorperazine maleate 10 mg tablet 10 mg PO Q6H PRN (Reason: n/v) escitalopram oxalate 20 mg tablet 20 mg PO QAM Eliquis 5 mg tablet 5 mg PO BID oxycodone 5 mg tablet 5 mg PO .EVERY 4-6 HOURS MDD Do not Exceed 6 tabs per day PRN (Reason: Pain) Rx Instructions: On hand but has not taken in weeks lorazepam [Ativan] 0.5 mg tablet 0.5 mg PO BID PRN (Reason: anxiety) Qty: 30 0RF famotidine 20 mg Tablet 20 mg PO BID Discharge Orders: Discharge Order (Routine); Ordered 04/10/24 Ordered By: Cr Davidson Admission Data Admit Date/Time: 04/08/24 10:44 Attending Provider: Cr Davidson Admit Provider: Nighat Olivo Primary Care Provider: Annie Ch Other Providers: Santiago Silverman; Nighat Olivo Other Interventions: Discharge Summary Assessment (RN) Last Done: 04/10/24 13:01
== END 2024-04-10 02:15 | disposition home health service (06) | DRG 388 ==
LOC: ED 07:30 → INTOOBSV 10:44 → SUATTDRO 10:44 → EDINP 10:44 → 3N 18:07

== ENCOUNTER 2025-02-02 02:32 | Observation (INO) ==
--- NOTE | 2025-02-02 02:44 | Emergency Department Note ---
History of Present Illness General Chief complaint: Abdominal Pain Stated complaint: ABBD, BACK AND HIP PAIN Time Seen by Provider: 02/02/25 02:34 History of Present Illness 44-year-old female with PMH metastatic colon adenocarcinoma (mets to liver and peritoneum) s/p surgery currently in remission, perforated diverticulitis/ adenocarcinoma s/p colostomy on 02/05, pulmonary embolism anticoagulated on Eliquis, C. difficile s/p treatment presents ER for ongoing worsening epigastric chest and back pain. The family doctor prescribed morphine today but unfortunately her insurance was unable to approve it. Patient states the pain is getting much worse and cannot tolerate it. The oxycodone is not helping. Her ostomy is producing normally. Patient denies fever, chills, flulike illness. She also complains of nausea and is requesting Zofran. Home Medications Medication Instructions Recorded Confirmed Type apixaban 5 mg tablet (Eliquis) 5 mg PO BID 02/02/25 02/02/25 History buspirone 10 mg tablet 10 mg PO BID 02/02/25 02/02/25 History cyclobenzaprine 5 mg tablet 5 mg PO TID PRN Muscle Spasm 02/02/25 02/02/25 History escitalopram oxalate 20 mg tablet 20 mg PO DAILY 02/02/25 02/02/25 History famotidine 20 mg tablet 20 mg PO BID 02/02/25 02/02/25 History lorazepam 0.5 mg tablet 0.5 mg PO TID PRN Anxiety 02/02/25 02/02/25 History morphine 30 mg tablet,extended 30 mg PO Q12H 02/02/25 02/02/25 History release (MS Contin) ondansetron HCl 4 mg tablet 4 mg PO TID PRN Nausea And Vomiting 02/02/25 02/02/25 History oxycodone 5 mg tablet 5 mg PO Q6H PRN Pain 02/02/25 02/02/25 History sulfamethoxazole 800 1 tab PO BID 02/02/25 02/02/25 History mg-trimethoprim 160 mg tablet Allergies Allergy/AdvReac Type Severity Reaction Status Date / Time No Known Allergies Allergy Verified 05/28/24 17:29 Past Med/Surg History Problem List (Updated 04/12/24 @ 00:07 by Background Dam[place]) History of cancer (Acute) Intractable abdominal pain (Acute) Partial small bowel obstruction (Acute) Pulmonary embolism (Acute) 02/16/24- on Eliquis Status post exploratory laparotomy Adenocarcinoma, colon (Acute) Panic attack due to exceptional stress Adjustment disorder with anxious mood Anemia (Acute) Gastric bypass status for obesity Medical History Peritonitis Abdominal pain Acute diverticulitis History of Clostridium difficile infection diagnosed 02/09/24 while admitted in hospital - treated with Vancomycin until 02/27/24 Colostomy present done 02/04/24 stoma revised 02/06/24 with an additional 4.5cm of the colon removed History of diverticulitis history of multiple flares over the past year Hx of deep venous thrombosis (2010) - s/p childbirth in 2010- was on blood thinner for short time - no DVT noted with PE on 02/16/24 Hx of migraines History of panic attacks History of pulmonary embolism dx 02/16/24 at DC>started on Eliquis provoked by malignancy and surgical intervention per records dopplers negative for DVT Adenocarcinoma of colon dx'ed 01/2024 Perforated sigmoid colon - 02/03/24 due to enlarging mass (adenocarcinoma of the colon) - 02/04/24 underwent partial left colon resection and end colostomy Depression with anxiety Surgical History Port-A-Cath in place (03/13/24) Insertion of Access Port with Fluoroscopy into Right Internal Jugular Vein(Right) - Elizabeth Velasquez DO [place] teeth removed H/O abdominal surgery (02/05/24) Exploratory Laparoscopy Revision of Colostomy and Stoma(Not Applicable) - Elizabeth Velasquez DO History of x 2 H/O gastric sleeve (2021) History of colon resection (02/04/24) p Diagnostic Laparoscopy, with a laparoscopic colon resection, Abdominal Wash Out, Creation Colostomy(Not Applicable) - Elizabeth Velasquez DO Extensive lysis of adhesions Family History Other No family history of adverse response to anesthesia Social History Smoking Status: Never smoker Second Hand Exposure: No; Do You Dip or Chew Tobacco: No; Hx Alcohol Use: No Hx Substance Use: No Preferred Language: Mongolian Communication Ability: Effective Visual Impairment: No Limitations Signal Wirer Required: No Beliefs That Will Affect Care: None Current Living Situation: Spouse Feels Safe at Home: Yes Assistive Devices: None Review of Systems A total of 10 systems reviewed and were otherwise negative Physical Exam Vital Signs Vital Signs - 24 hr 02/02/25 02:43 02/02/25 02:53 02/02/25 03:05 Temperature 37.3 C Temperature Source Oral Pulse Rate 69 72 67 Pulse Rhythm Regular Regular Pulse Strength Normal Respiratory Rate 13 13 Respiratory Effort / Characteristics Non-Labored Spontaneous Respiratory Depth Normal Respiratory Pattern Regular Blood Pressure 140/93 Blood Pressure Mean 108 Pulse Oximetry 98 97 Oxygen Delivery Method Room Air Room Air Sepsis Recent Fever Within 48 Hours No Sepsis New/Unexplained Change in Mental Status No Sepsis Action Taken by Nursing No Action Required 02/02/25 03:51 02/02/25 04:09 02/02/25 05:00 Temperature Temperature Source Pulse Rate 78 67 76 Pulse Rhythm Pulse Strength Respiratory Rate 14 16 10 L Respiratory Effort / Characteristics Respiratory Depth Respiratory Pattern Blood Pressure 134/80 132/92 120/91 Blood Pressure Mean 98 105 100 Pulse Oximetry 97 98 92 Oxygen Delivery Method Sepsis Recent Fever Within 48 Hours Sepsis New/Unexplained Change in Mental Status Sepsis Action Taken by Nursing 02/02/25 05:36 Temperature Temperature Source Pulse Rate 69 Pulse Rhythm Pulse Strength Respiratory Rate 10 L Respiratory Effort / Characteristics Respiratory Depth Respiratory Pattern Blood Pressure Blood Pressure Mean Pulse Oximetry 93 Oxygen Delivery Method Sepsis Recent Fever Within 48 Hours Sepsis New/Unexplained Change in Mental Status Sepsis Action Taken by Nursing VITALS: Vitals are noted on the nurse's note and reviewed by myself. Vital signs stable. GENERAL: White female, in no acute distress, nondiaphoretic, well-developed well-nourished. SKIN: Capillary reflex less than 2 seconds. HEENT: Normocephalic. PERRLA. EOMI. Nares patent. Mucous membranes moist. Neck is supple without nuchal rigidity. HEART: Regular rate and rhythm LUNGS: Clear to auscultation bilaterally without wheezes, rales or rhonchi. No retractions or accessory muscle use. ABDOMEN: Positive bowel sounds x 4. Normal tympanic percussion. Soft, diffusely tender to palpation, ostomy right lower quadrant producing stool, without masses or organomegaly. Espino sign negative. No guarding or rebound tenderness. no CVA tenderness MUSCULOSKELETAL: No gross musculoskeletal defects. No thoracic or lumbar tenderness. NEURO: Patient was alert and oriented to person place and time. No focal neurological deficits. Course Administered Medications Morphine Sulfate (Morphine Sulfate 4 Mg/Ml 1 Ml Carp\Vial) 4 mg IV Q15M PRN PRN Reason: Pain Stop: 02/16/25 02:41 Last Admin: 02/02/25 06:06 Dose: 4 mg Documented By: Admin: 02/02/25 05:43 Dose: 4 mg Documented By: Admin: 02/02/25 05:04 Dose: 4 mg Documented By: Admin: 02/02/25 04:31 Dose: 4 mg Documented By: Admin: 02/02/25 04:12 Dose: 4 mg Documented By: Admin: 02/02/25 03:55 Dose: 4 mg Documented By: Admin: 02/02/25 02:55 Dose: 4 mg Documented By: ALVARADO Discontinued Medications Sodium Chloride (Nss) 1,000 mls @ 999 mls/hr IV .Q1H1M STA Stop: 02/02/25 03:42 Last Infusion: 02/02/25 04:31 Dose: Infused Documented By: Admin: 02/02/25 02:55 Dose: 999 mls/hr Documented By: ALVARADO Ioversol (Optiray 320 125ml) 125 ml IV ONCE ONE Stop: 02/02/25 03:45 Last Admin: 02/02/25 03:44 Dose: 118 ml Documented By: BALJEET Ondansetron HCl (Ondansetron Inj 2 Mg/Ml 2 Ml Vial) 4 mg IV NOW STA Stop: 02/02/25 02:43 Last Admin: 02/02/25 02:55 Dose: 4 mg Documented By: ALVARADO Medical Decision Making Medical Records Attestation: I reviewed the patient's medical records. Home Medications Current Medication List: was personally reviewed by me Laboratory Data Attestation: I reviewed the patient's lab results. 02/02/25 02:48 02/02/25 02:48 Lab Results 02/02/25 02/02/25 02/02/25 Range/Units 02:48 02:53 05:26 WBC 5.82 (4.8-10.8) K/ul RBC 3.64 L (4.20-5.40) M/uL Hgb 9.1 L (12.0-16.0) g/dl POC Hgb 9.9 L (12.0-16.0) g/dl Hct 30.1 L (37.0-47.0) % POC Hct 29 L (37-47) % MCV 82.7 (80.0-100.0) fL MCH 25.0 (25.0-34.0) pg MCHC 30.2 L (32.0-36.0) g/dL RDW Std Deviation 51.4 H (36.4-46.3) fL RDW Coeff of Mita 16.8 H (11.5-14.5) % Plt Count 210 (130-400) K/uL MPV 9.0 L (9.4-12.4) fL Immature Gran % (Auto) 0.2 % Neut % (Auto) 73.7 % Lymph % (Auto) 13.6 % Foster % (Auto) 9.1 % Eos % (Auto) 2.9 % Baso % (Auto) 0.5 % Neut # (Auto) 4.29 (1.40-6.50) K/uL Lymph # (Auto) 0.79 L (1.20-3.40) K/uL Foster # (Auto) 0.53 (0.11-0.59) K/uL Eos # (Auto) 0.17 (0.00-0.50) K/uL Baso # (Auto) 0.03 (0.00-0.20) K/uL Immature Gran # (Auto) 0.01 (0.01-0.20) K/uL POC Sodium 141 (135-144) mmol/L Sodium 140 (136-145) mmol/L POC Potassium 3.6 (3.3-5.0) mmol/L Potassium 3.7 (3.5-5.1) mmol/L POC Chloride 102 (101-112) mmol/L Chloride 104 (98-107) mmol/L Carbon Dioxide 27 (21-32) mmol/L POC Total CO2 25 (24-31) mmol/L Anion Gap 9 (3-11) POC Anion Gap 19.0 (16-25) mmol/L POC BUN 14 (7-18) mg/dl BUN 15 (6-23) mg/dl Creatinine 0.84 (0.6-1.2) mg/dl POC Creatinine 0.9 (0.6-1.3) mg/dl Est Cr Clr Drug Dosing 83.0 ml/min eGFR 88.37 BUN/Creatinine Ratio 17.9 (10-20) Glucose 95 (70-99(Fasting)) mg/dl POC Glucose (other) 95 (70-99) mg/dl Calcium 8.9 (8.6-10.3) mg/dl POC Ioniz Calcium [place] 1.15 (1.12-1.32) mmol/l Magnesium 1.8 (1.7-2.4) mg/dl Total Bilirubin 0.3 (0.2-1.0) mg/dl AST 16 (13-39) U/L ALT 14 (7-52) U/L Alkaline Phosphatase 107 H (34-104) U/L Troponin I High Sens 8.4 (0-14) pg/ml Total Protein 6.9 (6.0-8.3) gm/dl Albumin 3.5 (3.4-5.0) gm/dl Globulin 3.4 (2.5-4.0) gm/dl Albumin/Globulin Ratio 1.0 (0.9-2) Lipase 15 (11-82) U/L Urine Color Yellow Urine Appearance Clear (Clear) Urine pH 5.0 (4.5-7.5) Ur Specific [place] > 1.045 H (1.000-1.030) Urine Protein Trace H (Negative) Urine Glucose (UA) Negative (Negative) Urine Ketones 2+ H (Negative) Urine Blood Negative (Negative) Urine Nitrite Negative (Negative) Urine Bilirubin Negative (Negative) Urine Urobilinogen Negative (Negative) Ur Leukocyte Esterase Negative (Negative) Urine WBC (Auto) 0-5 (0-5) /hpf Urine RBC (Auto) 0-2 (0-2) /hpf U Hyaline Cast (Auto) 0-2 (0-2) /lpf U Epithel Cells (Auto) 0-2 (0-2) /hpf Urine Bacteria (Auto) None Seen (None Seen) Urine Comment Imaging Data Attestation: I personally reviewed and interpreted this imaging study as follows: Radiologist's Impression: Abdomen/Pelvis CT 02/02/25 02:42 EXAM: CT abd pelvis IV con only CLINICAL HISTORY: severe pain, hx colon CA w /mets TECHNIQUE: Contiguous axial images were obtained from the level of the diaphragm to the pubic symphysis with intravenous contrast. Coronal and sagittal reconstructions were likewise performed and were indicated to increase the sensitivity for detecting clinically relevant pathology. If intravenous contrast material had not been administered, the likelihood of detecting abnormalities relevant to the patient's condition would have been substantially decreased. The CT scan was performed according to ALARA (as low as reasonably achievable). COMPARISON: 10:35:00 VALIDATION INTERN. FINDINGS: Minimal right pleural effusion with basal subsegmental collapse of the right lower lobes is seen new finding. The liver is normal in size and attenuation. Evidence of multiple mildly peripherally enhancing hypodense lesions is noted in the right lobe of the liver; the largest measures about 28 x 22 mm. There is no intrahepatic or extrahepatic biliary ductal dilatation. Hepatic vasculature is patent. The gallbladder is present. The spleen, pancreas, and adrenal glands are unremarkable. Splenule seen-stable. The kidneys are normal in size and attenuation. Moderate right-sided hydronephroureterosis with abruptnarrowing is noted involving the right distal ureter; contrast urography correlation is suggested. The bladder is normal in contour. No imaging evidence of appendicitis. Abdominal and pelvic vasculature is patent. No aggressive appearing osseous lesions are identified. An IVC filter is seen in situ. Right lower quadrant ileostomy status without obvious complication. Previous left lower quadarant post operative changes seen. Free fluid is noted in the right paracolic region, periheptic region and in the right iliac fossa. Evidence of clumping of small bowel loops is noted involving the lower quadrant with possible congestion noted along the anterior abdominal wall. However, no obvious changes of bowel obstruction are present. Pelvic venous engorgement seen. Post hysterectomy status. Pelvic surgical sutures seen. The right gonadal vein is slightly dilated with a central low-attenuation filling defect in its middle segment, just distal to its junction with inferior vena cava. IMPRESSION: 1. Moderate right-sided hydronephroureterosis with abrupt narrowing noted involving the right distal ureter with perinephric fat starnding- new finding. 2. Right lower quadrant ileostomy status without obvious complication. - new finding. 3. Free fluid is noted in the right paracolic region, periheptic region and in the right iliac fossa- new finding. 4. Evidence of clumping of small bowel loops is noted involving the lower quadrant with possible congestion noted along the anterior abdominal wall, likely post interventional changes - new finding. However, no obvious changes of bowel obstruction. 5. Evidence of multiple mildly peripherally enhancing hypodense lesions is noted in the right lobe of the liver; the largest measures about 28 x 22 mm. New. 6. Pelvic venous engorgement seen. New finding. Post hysterectomy status. 7. The right gonadal vein is slightly dilated with a central low-attenuation filling defect in its middle segment, just distal to its junction with inferior vena cava. New finding. 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 Electronically signed by Sudeep Dunlap 02-02-2025 04:56 AM Chest CTA 02/02/25 02:42 EXAM: CT angio chest PE protocol CLINICAL HISTORY: PE TECHNIQUE: Contiguous axial images were obtained from the neck base through the upper abdomen following intravenous administration of iodinated contrast material. Angiographic images were processed, and 3D MIP images were acquired for interpretation. If IV contrast material had not been administered, the likelihood of detecting abnormalities relevant to the patient's condition would have been substantially decreased. Coronal and sagittal 3-D MIPs were likewise performed and indicated to increase the sensitivity of detecting diffuse clinically relevant pathology. The CT scan was performed according to ALARA (as low as reasonably achievable). COMPARISON: 12:52:00 VALIDATION INTERN. FINDINGS: Minimal right pleural effusion with basal subsegmental collapse of the right lower lobes is seen. Adequate contrast bolus without evidence of pulmonary embolism. Bibasilar lung atelectasis. Air foci at root of pulmonary artery, likely post interventional. The central airways are patent. The lungs are clear. The heart, aorta, and pulmonary arteries are of normal size and configuration. There are no appreciable coronary artery or aortic atherosclerotic calcifications. No pericardial effusion is identified. The thyroid is unremarkable. No mediastinal, hilar, or axillary lymphadenopathy is noted. No suspicious lytic or sclerotic osseous lesions are identified. Central venous catheter is seen with its tip at atriocaval junction. IMPRESSION: No evidence of pulmonary embolism Minimal right pleural effusion with basal subsegmental collapse of the right lower lobes is seen new finding. Bibasilar subtle lung atelectasis. Electronically signed by Sudeep Dunlap 02-02-2025 04:22 AM MDM Narrative Prior records/ancillary studies reviewed. Triage Nursing notes reviewed. Additional history obtained from EMS. The patient's history was concerning for abdominal pain. Differential diagnosis: Etiologies such as cancer recurrence, appendicitis, diverticulitis, PUD, biliary pathology, UTI, pancreatitis, obstruction, mesenteric ischemia, aortic pathology, infections, inflammatory bowel disease, renal colic, as well as others were entertained. Physical examination findings: As above. ER treatment provided: An order was placed for continuous cardiac monitoring. The monitor shows a rate of 60-100 with a sinus rhythm per my Independent interpretation. Morphine, Zofran, IV fluids ordered I reviewed the patient's records from [place] on her [facility] micki. CT scan seems somewhat similar to today's. New finding would be the hydronephrosis. On reassessment the patient felt better. Diagnostics interpreted by me: ECG: Ordered for epigastric pain EKG: Normal sinus, normal intervals, no acute ST-T wave changes. Impression normal sinus rhythm independently interpreted by myself The labs Independently Interpreted by myself revealed anemia, no worrisome leukocytosis, negative troponin. Glucose 95. Patient's had a hysterectomy neg UA Imaging studies: Imaging was reviewed and read by radiology Consultation: A consultation was placed with the hospitalist. The case was discussed and diagnostics were reviewed. The patient was evaluated in the ER for further treatment. Exam and history seem consistent with intractable abdominal pain. Patient has a history of colon cancer. She states she has been in remission since surgery since October. That is when her ileostomy was placed. She has had increasing pain for the past few weeks. She went to [place] last week and had a CAT scan which appears somewhat similar to today's CAT scan. Pain persisted and patient could not tolerate p.o. meds and was admitted for pain management. Medicine is consulted case discussed. She will be evaluated for admission. By the evaluation outlined above emergent etiologies such as appendicitis, diverticulitis, PUD, biliary pathology, pancreatitis, mesenteric ischemia, aortic pathology, infections, inflammatory bowel disease, renal colic, as well as others were deemed relatively unlikely. The pt informed about the findings as listed above. All questions were answered and pleased with the treatment. The chart was completed utilizing [employer] voice recognition software. Grammatical errors, random word insertions, pronoun errors, and incomplete sentences are an occassional consequence of this system due to software limitations, ambient noise, and hardware issues. Any formal questions or concerns about the content, text, or information contained within the body of this dictation should be directly addressed to the physician assistant refinery operator for clarification. Impression & Plan Intractable abdominal pain, History of cancer Discharge Plan Visit Data Chief Complaint: Abdominal Pain Stated Complaint: ABBD, BACK AND HIP PAIN ED Provider: Haylie Sandoval ED Midlevel Provider: Ruthie Higgins Discharge Problem: Intractable abdominal pain, History of cancer Patient Disposition: Admitted As Inpatient Condition: Good Forms Stand Alone Forms: [facility] [employer] Prescriptions Prescriptions: No Action ondansetron HCl 4 mg tablet 4 mg PO TID PRN (Reason: Nausea And Vomiting) morphine [MS Contin] 30 mg Tablet Extended Release 30 mg PO Q12H sulfamethoxazole-trimethoprim 800-160 mg tablet 1 tab PO BID famotidine 20 mg tablet 20 mg PO BID lorazepam 0.5 mg tablet 0.5 mg PO TID PRN (Reason: Anxiety) buspirone 10 mg tablet 10 mg PO BID oxycodone 5 mg tablet 5 mg PO Q6H PRN (Reason: Pain) escitalopram oxalate 20 mg tablet 20 mg PO DAILY cyclobenzaprine 5 mg tablet 5 mg PO TID PRN (Reason: Muscle Spasm) Eliquis 5 mg tablet 5 mg PO BID Referrals Referrals: Annie Ch DO [Primary Care Provider] -
[2025-02-02] MEDS: SODIUM CHLORIDE 0.9% 1,000 ML IV STA (02:55)
[2025-02-02] MEDS: MoRPHine SULFATE 4 MG/ML 1 ML CARP\\VIAL IV PRN (02:55)
[2025-02-02] MEDS: ONDANSETRON INJ 2 MG/ML 2 ML VIAL IV STA (02:55)
[2025-02-02 03:03] LABS: Hematocrit (blood only) 30.1 % (37.0-47.0); Hemoglobin 9.1 g/dl (12.0-16.0); Immature Granulocytes # (auto) 0.01 K/uL (0.01-0.20); Immature Granulocytes % (auto) 0.2 %; Mean Corpuscular Hemoglobin 25.0 pg (25.0-34.0); Mean Corpuscular Volume 82.7 fL (80.0-100.0); Platelet Count 210 K/uL (130-400); RDW Standard Deviation 51.4 fL (36.4-46.3); Red Blood Count 3.64 M/uL (4.20-5.40); White Blood Count 5.82 K/ul (4.8-10.8)
[2025-02-02 03:20] LABS: Alanine Aminotransferase 14.0 U/L (7-52); Albumin Globulin Ratio 1.0 (0.9-2); Albumin Level 3.5 gm/dl (3.4-5.0); Alkaline Phosphatase 107.0 U/L (34-104); Anion Gap 9.0 (3-11); Bilirubin,Total 0.3 mg/dl (0.2-1.0); Blood Urea Nitrogen 15.0 mg/dl (6-23); Calcium 8.9 mg/dl (8.6-10.3); Carbon Dioxide 27.0 mmol/L (21-32); Chloride 104.0 mmol/L (98-107); Creatinine Clr Calc Pharmacy 83.0 ml/min; Globulin 3.4 gm/dl (2.5-4.0); Glucose 95.0 mg/dl (70-99(Fasting)); Lipase 15.0 U/L (11-82); Magnesium 1.8 mg/dl (1.7-2.4); Potassium 3.7 mmol/L (3.5-5.1); Sodium 140.0 mmol/L (136-145); Total Protein 6.9 gm/dl (6.0-8.3)
[2025-02-02] MEDS: OPTIRAY 320 125ml IV ONE (03:44)
--- NOTE | 2025-02-02 04:23 | CT Scan Report ---
EXAM: CT angio chest PE protocol CLINICAL HISTORY: PE TECHNIQUE: Contiguous axial images were obtained from the neck base through the upper abdomen following intravenous administration of iodinated contrast material. Angiographic images were processed, and 3D MIP images were acquired for interpretation. If IV contrast material had not been administered, the likelihood of detecting abnormalities relevant to the patient's condition would have been substantially decreased. Coronal and sagittal 3-D MIPs were likewise performed and indicated to increase the sensitivity of detecting diffuse clinically relevant pathology. The CT scan was performed according to ALARA (as low as reasonably achievable). COMPARISON: 12:52:00 BUSINESS MACHINE OPERATOR. FINDINGS: Minimal right pleural effusion with basal subsegmental collapse of the right lower lobes is seen. Adequate contrast bolus without evidence of pulmonary embolism. Bibasilar lung atelectasis. Air foci at root of pulmonary artery, likely post interventional. The central airways are patent. The lungs are clear. The heart, aorta, and pulmonary arteries are of normal size and configuration. There are no appreciable coronary artery or aortic atherosclerotic calcifications. No pericardial effusion is identified. The thyroid is unremarkable. No mediastinal, hilar, or axillary lymphadenopathy is noted. No suspicious lytic or sclerotic osseous lesions are identified. Central venous catheter is seen with its tip at atriocaval junction. IMPRESSION: No evidence of pulmonary embolism Minimal right pleural effusion with basal subsegmental collapse of the right lower lobes is seen new finding. Bibasilar subtle lung atelectasis. Electronically signed by Sudeep Dunlap 02-02-2025 04:22 AM
--- NOTE | 2025-02-02 04:56 | CT Scan Report ---
EXAM: CT abd pelvis IV con only CLINICAL HISTORY: severe pain, hx colon CA w /mets TECHNIQUE: Contiguous axial images were obtained from the level of the diaphragm to the pubic symphysis with intravenous contrast. Coronal and sagittal reconstructions were likewise performed and were indicated to increase the sensitivity for detecting clinically relevant pathology. If intravenous contrast material had not been administered, the likelihood of detecting abnormalities relevant to the patient's condition would have been substantially decreased. The CT scan was performed according to ALARA (as low as reasonably achievable). 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 FINDINGS: Minimal right pleural effusion with basal subsegmental collapse of the right lower lobes is seen new finding. The liver is normal in size and attenuation. Evidence of multiple mildly peripherally enhancing hypodense lesions is noted in the right lobe of the liver; the largest measures about 28 x 22 mm. There is no intrahepatic or extrahepatic biliary ductal dilatation. Hepatic vasculature is patent. The gallbladder is present. The spleen, pancreas, and adrenal glands are unremarkable. Splenule seen-stable. The kidneys are normal in size and attenuation. Moderate right-sided hydronephroureterosis with abruptnarrowing is noted involving the right distal ureter; contrast urography correlation is suggested. The bladder is normal in contour. No imaging evidence of appendicitis. Abdominal and pelvic vasculature is patent. No aggressive appearing osseous lesions are identified. An IVC filter is seen in situ. Right lower quadrant ileostomy status without obvious complication. Previous left lower quadarant post operative changes seen. Free fluid is noted in the right paracolic region, periheptic region and in the right iliac fossa. Evidence of clumping of small bowel loops is noted involving the lower quadrant with possible congestion noted along the anterior abdominal wall. However, no obvious changes of bowel obstruction are present. Pelvic venous engorgement seen. Post hysterectomy status. Pelvic surgical sutures seen. The right gonadal vein is slightly dilated with a central low-attenuation filling defect in its middle segment, just distal to its junction with inferior vena cava. IMPRESSION: 1. Moderate right-sided hydronephroureterosis with abrupt narrowing noted involving the right distal ureter with perinephric fat starnding- new finding. 2. Right lower quadrant ileostomy status without obvious complication. - new finding. 3. Free fluid is noted in the right paracolic region, periheptic region and in the right iliac fossa- new finding. 4. Evidence of clumping of small bowel loops is noted involving the lower quadrant with possible congestion noted along the anterior abdominal wall, likely post interventional changes - new finding. However, no obvious changes of bowel obstruction. 5. Evidence of multiple mildly peripherally enhancing hypodense lesions is noted in the right lobe of the liver; the largest measures about 28 x 22 mm. New. 6. Pelvic venous engorgement seen. New finding. Post hysterectomy status. 7. The right gonadal vein is slightly dilated with a central low-attenuation filling defect in its middle segment, just distal to its junction with inferior vena cava. New finding. 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 Electronically signed by Sudeep Dunlap 02-02-2025 04:56 AM
[2025-02-02 06:09] LABS: Appearance Urine Clear (Clear); Bacteria Urine Automated None Seen (None Seen); Cast Urine Automated 0-2 /lpf (0-2); Epithelial Cell Urine Auto 0-2 /hpf (0-2); Glucose Urine UA Negative (Negative); RBC Urine Automated 0-2 /hpf (0-2); WBC Urine Automated 0-5 /hpf (0-5)
--- NOTE | 2025-02-02 06:23 | History & Physical Report ---
Date of Service February 02, 2025 Assessment & Plan (1) Abdominal pain: Plan: 44-year-old female with past medical history significant for metastatic colon adenocarcinoma mets to liver and peritoneum, perforated diverticulitis/adenocarcinoma status post colostomy, pulm embolism on Eliquis, C. difficile s/p treatment, anxiety and depression, iron deficiency anemia presents with abdominal pain. Patient has ongoing abdominal pain since last 3 weeks. Her cancer surgeon is at [facility]. She followed with [facility] [place]. She had couple of CAT scans in the last couple of weeks. First CAT scan with contrast was done 01/20/2025 which showed small hepatic abscess and she was placed on Bactrim. Repeat CAT scan was done January 26, 2025 without contrast which was not obvious with abscess but the lesions were smaller in size. There is plan to repeat CAT scan in the next few days. She also seems getting PT to come to help with back pain and to strengthen abdominal muscles. Saw PCP yesterday. PCP prescribed morphine sulfate ER 30 mg twice daily as oxycodone was not working. Patient's is working with her insurance to get the MS Contin approved. But because abdominal pain is not getting better she came to the ER today. The pain is associated with nausea. Patient states she has very poor appetite. Denies any chest pain or shortness of breath. No cough. No runny nose or sore throat. Micturating okay. Hemodynamics okay. Ambulating okay. Abdominal pain Going on for last 3 weeks Followed with her cancer surgeon and also PCP CAT scan showed small hepatic abscess and she is on Bactrim Has follow-up CAT scan scheduled PCP prescribed MS Contin 30mg twice daily but patient has not gotten it yet IV Dilaudid as needed for now Pain management consult Metastatic colon adenocarcinoma Mets to liver and peritoneum Perforated diverticulitis Status post colostomy Follows with [facility] History of PE On Eliquis Anxiety and depression Continue home medications DVT prophylaxis Eliquis Disposition Medical floor Full code. History of Present Illness Chief Complaint: Abdominal pain Primary Care Provider: Annie Ch DO 44-year-old female with past medical history significant for metastatic colon adenocarcinoma mets to liver and peritoneum, perforated diverticulitis/adenocarcinoma status post colostomy, pulm embolism on Eliquis, C. difficile s/p treatment, anxiety and depression, iron deficiency anemia presents with abdominal pain. Patient has ongoing abdominal pain since last 3 weeks. Her cancer surgeon is at [facility]. She followed with [facility] [place]. She had couple of CAT scans in the last couple of weeks. First CAT scan with contrast was done 01/20/2025 which showed small hepatic abscess and she was placed on Bactrim. Repeat CAT scan was done January 26, 2025 without contrast which was not obvious with abscess but the lesions were smaller in size. There is plan to repeat CAT scan in the next few days. She also seems getting PT to come to help with back pain and to strengthen abdominal muscles. Saw PCP yesterday. PCP prescribed morphine sulfate ER 30 mg twice daily as oxycodone was not working. Patient's is working with her insurance to get the MS Contin approved. But because abdominal pain is not getting better she came to the ER today. The pain is associated with nausea. Patient states she has very poor appetite. Denies any chest pain or shortness of breath. No cough. No runny nose or sore throat. Micturating okay. Hemodynamics okay. Ambulating okay. Past medical history. As mentioned above Past surgical history. Gastric band revision laparoscopic. IVC filter. Partial removal of colon. Status post colostomy. . Social history. No smoking. No alcohol use. No drug use. Family history. Mother had lung disease. Paternal grandmother has dementia. Maternal grandfather had heart attack. Paternal grandfather heart attack. Allergies Allergy/AdvReac Type Severity Reaction Status Date / Time No Known Allergies Allergy Verified 05/28/24 17:29 Home Medications Medication Instructions Recorded Confirmed Type apixaban 5 mg tablet (Eliquis) 5 mg PO BID 02/02/25 02/02/25 History buspirone 10 mg tablet 10 mg PO BID 02/02/25 02/02/25 History cyclobenzaprine 5 mg tablet 5 mg PO TID PRN Muscle Spasm 02/02/25 02/02/25 History escitalopram oxalate 20 mg tablet 20 mg PO DAILY 02/02/25 02/02/25 History famotidine 20 mg tablet 20 mg PO BID 02/02/25 02/02/25 History lorazepam 0.5 mg tablet 0.5 mg PO TID PRN Anxiety 02/02/25 02/02/25 History morphine 30 mg tablet,extended 30 mg PO Q12H 02/02/25 02/02/25 History release (MS Contin) ondansetron HCl 4 mg tablet 4 mg PO TID PRN Nausea And Vomiting 02/02/25 02/02/25 History oxycodone 5 mg tablet 5 mg PO Q6H PRN Pain 02/02/25 02/02/25 History sulfamethoxazole 800 1 tab PO BID 02/02/25 02/02/25 History mg-trimethoprim 160 mg tablet Past Med/Surg History Problem List (Updated 04/12/24 @ 00:07 by Surjit Gifford) History of cancer (Acute) Intractable abdominal pain (Acute) Partial small bowel obstruction (Acute) Pulmonary embolism (Acute) 02/16/24- on Eliquis Status post exploratory laparotomy Adenocarcinoma, colon (Acute) Panic attack due to exceptional stress Adjustment disorder with anxious mood Anemia (Acute) Gastric bypass status for obesity Medical History Peritonitis Abdominal pain Acute diverticulitis History of Clostridium difficile infection diagnosed 02/09/24 while admitted in hospital - treated with Vancomycin until 02/27/24 Colostomy present done 02/04/24 stoma revised 02/06/24 with an additional 4.5cm of the colon removed History of diverticulitis history of multiple flares over the past year Hx of deep venous thrombosis (2010) - s/p childbirth in 2010- was on blood thinner for short time - no DVT noted with PE on 02/16/24 Hx of migraines History of panic attacks History of pulmonary embolism dx 02/16/24 at [place]>started on Eliquis provoked by malignancy and surgical intervention per records dopplers negative for DVT Adenocarcinoma of colon dx'ed 01/2024 Perforated sigmoid colon - 02/03/24 due to enlarging mass (adenocarcinoma of the colon) - 02/04/24 underwent partial left colon resection and end colostomy Depression with anxiety Surgical History Port-A-Cath in place (03/13/24) Insertion of Access Port with Fluoroscopy into Right Internal Jugular Vein(Right) - Elizabeth Velasquez DO [place] teeth removed H/O abdominal surgery (02/05/24) Exploratory Laparoscopy Revision of Colostomy and Stoma(Not Applicable) - Kennita L. Beck-Ronaldo, DO History of x 2 H/O gastric sleeve (2021) History of colon resection (02/04/24) p Diagnostic Laparoscopy, with a laparoscopic colon resection, Abdominal Wash Out, Creation Colostomy(Not Applicable) - Elizabeth Velasquez DO Extensive lysis of adhesions Family History Other No family history of adverse response to anesthesia Social History Smoking Status: Never smoker Second Hand Exposure: No; Do You Dip or Chew Tobacco: No; Hx Alcohol Use: No Hx Substance Use: No Preferred Language: [place] Communication Ability: Effective Visual Impairment: No Limitations Pure Pak Machine Operator Required: No Beliefs That Will Affect Care: None Current Living Situation: Spouse Feels Safe at Home: Yes Assistive Devices: None Review of Systems Review of Systems: All systems reviewed & are unremarkable except as noted in HPI & below Physical Exam Physical Exam: General- Not in acute distress Head- atraumatic Eyes- PERRL. ENT- oropharynx clear Neck- supple, no JVD. Lungs- clear to auscultation no wheezing or crackles Heart- regular rhythm; no murmur, no gallop. Abdomen- normal bowel sounds, soft, mild diffuse discomfort , no distension colostomy bag seen Extremities- no pretibial edema, no erythema Neuro- alert, oriented PERRL,no facial palsy; no dysarthria; moves extremities Results & Data Results & Data Vital Signs (Past 12 Hours) Vital Signs Temp Pulse Resp BP Pulse Ox O2 Del Method 02/02/25 05:36 69 10 L 93 02/02/25 05:00 76 10 L 120/91 92 02/02/25 04:09 67 16 132/92 98 02/02/25 03:51 78 14 134/80 97 02/02/25 03:05 67 13 97 Room Air 02/02/25 02:53 72 02/02/25 02:43 37.3 C 69 13 140/93 98 Room Air Diagnostic Findings Laboratory Results WBC 5.82 K/ul (4.8-10.8) 02/02/25 02:48 RBC 3.64 M/uL (4.20-5.40) L 02/02/25 02:48 Hgb 9.1 g/dl (12.0-16.0) L 02/02/25 02:48 POC Hgb 9.9 g/dl (12.0-16.0) L 02/02/25 02:53 Hct 30.1 % (37.0-47.0) L 02/02/25 02:48 POC Hct 29 % (37-47) L 02/02/25 02:53 MCV 82.7 fL (80.0-100.0) 02/02/25 02:48 MCH 25.0 pg (25.0-34.0) 02/02/25 02:48 MCHC 30.2 g/dL (32.0-36.0) L 02/02/25 02:48 RDW Std Deviation 51.4 fL (36.4-46.3) H 02/02/25 02:48 RDW Coeff of Mita 16.8 % (11.5-14.5) H 02/02/25 02:48 Plt Count 210 K/uL (130-400) 02/02/25 02:48 MPV 9.0 fL (9.4-12.4) L 02/02/25 02:48 Immature Gran % (Auto) 0.2 % 02/02/25 02:48 Neut % (Auto) 73.7 % 02/02/25 02:48 Lymph % (Auto) 13.6 % 02/02/25 02:48 [place] % (Auto) 9.1 % 02/02/25 02:48 Eos % (Auto) 2.9 % 02/02/25 02:48 Baso % (Auto) 0.5 % 02/02/25 02:48 Neut # (Auto) 4.29 K/uL (1.40-6.50) 02/02/25 02:48 Lymph # (Auto) 0.79 K/uL (1.20-3.40) L 02/02/25 02:48 [place] # (Auto) 0.53 K/uL (0.11-0.59) 02/02/25 02:48 Eos # (Auto) 0.17 K/uL (0.00-0.50) 02/02/25 02:48 Baso # (Auto) 0.03 K/uL (0.00-0.20) 02/02/25 02:48 Immature Gran # (Auto) 0.01 K/uL (0.01-0.20) 02/02/25 02:48 POC Sodium 141 mmol/L (135-144) 02/02/25 02:53 Sodium 140 mmol/L (136-145) 02/02/25 02:48 POC Potassium 3.6 mmol/L (3.3-5.0) 02/02/25 02:53 Potassium 3.7 mmol/L (3.5-5.1) 02/02/25 02:48 POC Chloride 102 mmol/L (101-112) 02/02/25 02:53 Chloride 104 mmol/L (98-107) 02/02/25 02:48 Carbon Dioxide 27 mmol/L (21-32) 02/02/25 02:48 POC Total CO2 25 mmol/L (24-31) 02/02/25 02:53 Anion Gap 9 (3-11) 02/02/25 02:48 POC Anion Gap 19.0 mmol/L (16-25) 02/02/25 02:53 POC BUN 14 mg/dl (7-18) 02/02/25 02:53 BUN 15 mg/dl (6-23) 02/02/25 02:48 Creatinine 0.84 mg/dl (0.6-1.2) 02/02/25 02:48 POC Creatinine 0.9 mg/dl (0.6-1.3) 02/02/25 02:53 Est Cr Clr Drug Dosing 83.0 ml/min 02/02/25 02:48 eGFR 88.37 02/02/25 02:48 BUN/Creatinine Ratio 17.9 (10-20) 02/02/25 02:48 Glucose 95 mg/dl (70-99(Fasting)) 02/02/25 02:48 POC Glucose (other) 95 mg/dl (70-99) 02/02/25 02:53 Calcium 8.9 mg/dl (8.6-10.3) 02/02/25 02:48 POC Ioniz Calcium [place] 1.15 mmol/l (1.12-1.32) 02/02/25 02:53 Magnesium 1.8 mg/dl (1.7-2.4) 02/02/25 02:48 Total Bilirubin 0.3 mg/dl (0.2-1.0) 02/02/25 02:48 AST 16 U/L (13-39) 02/02/25 02:48 ALT 14 U/L (7-52) 02/02/25 02:48 Alkaline Phosphatase 107 U/L (34-104) H 02/02/25 02:48 Troponin I High Sens 8.4 pg/ml (0-14) 02/02/25 02:48 Total Protein 6.9 gm/dl (6.0-8.3) 02/02/25 02:48 Albumin 3.5 gm/dl (3.4-5.0) 02/02/25 02:48 Globulin 3.4 gm/dl (2.5-4.0) 02/02/25 02:48 Albumin/Globulin Ratio 1.0 (0.9-2) 02/02/25 02:48 Lipase 15 U/L (11-82) 02/02/25 02:48 Urine Color Yellow 02/02/25 05:26 Urine Appearance Clear (Clear) 02/02/25 05:26 Urine pH 5.0 (4.5-7.5) 02/02/25 05:26 Ur Specific [place] > 1.045 (1.000-1.030) H 02/02/25 05:26 Urine Protein Trace (Negative) H 02/02/25 05:26 Urine Glucose (UA) Negative (Negative) 02/02/25 05:26 Urine Ketones 2+ (Negative) H 02/02/25 05:26 Urine Blood Negative (Negative) 02/02/25 05:26 Urine Nitrite Negative (Negative) 02/02/25 05:26 Urine Bilirubin Negative (Negative) 02/02/25 05:26 Urine Urobilinogen Negative (Negative) 02/02/25 05:26 Ur Leukocyte Esterase Negative (Negative) 02/02/25 05:26 Urine WBC (Auto) 0-5 /hpf (0-5) 02/02/25 05:26 Urine RBC (Auto) 0-2 /hpf (0-2) 02/02/25 05:26 U Hyaline Cast (Auto) 0-2 /lpf (0-2) 02/02/25 05:26 U Epithel Cells (Auto) 0-2 /hpf (0-2) 02/02/25 05:26 Urine Bacteria (Auto) None Seen (None Seen) 02/02/25 05:26 Urine Comment 02/02/25 05:26 Impressions Abdomen/Pelvis CT 02/02/25 02:42 EXAM: CT abd pelvis IV con only CLINICAL HISTORY: severe pain, hx colon CA w /mets TECHNIQUE: Contiguous axial images were obtained from the level of the diaphragm to the pubic symphysis with intravenous contrast. Coronal and sagittal reconstructions were likewise performed and were indicated to increase the sensitivity for detecting clinically relevant pathology. If intravenous contrast material had not been administered, the likelihood of detecting abnormalities relevant to the patient's condition would have been substantially decreased. The CT scan was performed according to ALARA (as low as reasonably achievable). 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 FINDINGS: Minimal right pleural effusion with basal subsegmental collapse of the right lower lobes is seen new finding. The liver is normal in size and attenuation. Evidence of multiple mildly peripherally enhancing hypodense lesions is noted in the right lobe of the liver; the largest measures about 28 x 22 mm. There is no intrahepatic or extrahepatic biliary ductal dilatation. Hepatic vasculature is patent. The gallbladder is present. The spleen, pancreas, and adrenal glands are unremarkable. Splenule seen-stable. The kidneys are normal in size and attenuation. Moderate right-sided hydronephroureterosis with abruptnarrowing is noted involving the right distal ureter; contrast urography correlation is suggested. The bladder is normal in contour. No imaging evidence of appendicitis. Abdominal and pelvic vasculature is patent. No aggressive appearing osseous lesions are identified. An IVC filter is seen in situ. Right lower quadrant ileostomy status without obvious complication. Previous left lower quadarant post operative changes seen. Free fluid is noted in the right paracolic region, periheptic region and in the right iliac fossa. Evidence of clumping of small bowel loops is noted involving the lower quadrant with possible congestion noted along the anterior abdominal wall. However, no obvious changes of bowel obstruction are present. Pelvic venous engorgement seen. Post hysterectomy status. Pelvic surgical sutures seen. The right gonadal vein is slightly dilated with a central low-attenuation filling defect in its middle segment, just distal to its junction with inferior vena cava. IMPRESSION: 1. Moderate right-sided hydronephroureterosis with abrupt narrowing noted involving the right distal ureter with perinephric fat starnding- new finding. 2. Right lower quadrant ileostomy status without obvious complication. - new finding. 3. Free fluid is noted in the right paracolic region, periheptic region and in the right iliac fossa- new finding. 4. Evidence of clumping of small bowel loops is noted involving the lower quadrant with possible congestion noted along the anterior abdominal wall, likely post interventional changes - new finding. However, no obvious changes of bowel obstruction. 5. Evidence of multiple mildly peripherally enhancing hypodense lesions is noted in the right lobe of the liver; the largest measures about 28 x 22 mm. New. 6. Pelvic venous engorgement seen. New finding. Post hysterectomy status. 7. The right gonadal vein is slightly dilated with a central low-attenuation filling defect in its middle segment, just distal to its junction with inferior vena cava. New finding. 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 Electronically signed by Sudeep Dunlap 02-02-2025 04:56 AM Chest CTA 02/02/25 02:42 EXAM: CT angio chest PE protocol CLINICAL HISTORY: PE TECHNIQUE: Contiguous axial images were obtained from the neck base through the upper abdomen following intravenous administration of iodinated contrast material. Angiographic images were processed, and 3D MIP images were acquired for interpretation. If IV contrast material had not been administered, the likelihood of detecting abnormalities relevant to the patient's condition would have been substantially decreased. Coronal and sagittal 3-D MIPs were likewise performed and indicated to increase the sensitivity of detecting diffuse clinically relevant pathology. The CT scan was performed according to ALARA (as low as reasonably achievable). COMPARISON: 12:52:00 NET FINISHER. FINDINGS: Minimal right pleural effusion with basal subsegmental collapse of the right lower lobes is seen. Adequate contrast bolus without evidence of pulmonary embolism. Bibasilar lung atelectasis. Air foci at root of pulmonary artery, likely post interventional. The central airways are patent. The lungs are clear. The heart, aorta, and pulmonary arteries are of normal size and configuration. There are no appreciable coronary artery or aortic atherosclerotic calcifications. No pericardial effusion is identified. The thyroid is unremarkable. No mediastinal, hilar, or axillary lymphadenopathy is noted. No suspicious lytic or sclerotic osseous lesions are identified. Central venous catheter is seen with its tip at atriocaval junction. IMPRESSION: No evidence of pulmonary embolism Minimal right pleural effusion with basal subsegmental collapse of the right lower lobes is seen new finding. Bibasilar subtle lung atelectasis. Electronically signed by Sudeep Dunlap 02-02-2025 04:22 AM ECG Additional Comments: ECG. Normal sinus rhythm rate of 68. No significant changes found. Code Status & VTE Plan VTE Prophylaxis Plan VTE Prophylaxis will be ordered: Yes (1) Abdominal pain Abdominal location: generalized Qualified Code(s): R10.84 - Generalized abdominal pain
[2025-02-02] MEDS: HYDROmorphone INJ 0.5 MG/0.5 ML SYR IV PRN ×3 (08:22→21:52)
[2025-02-02] MEDS: busPIRone 5 MG TAB PO SCH (09:05)
[2025-02-02] MEDS: ESCITALOPRAM OXALATE 20 MG TAB PO SCH (09:05)
[2025-02-02] MEDS: SULFAMETHOXAZOLE/TRIMETHOPRIM DS 800/160MG TAB PO SCH (09:05)
[2025-02-02] MEDS: APIXABAN 5 MG TABLET PO SCH (09:05)
[2025-02-02] MEDS: FAMOTIDINE 20 MG TAB PO SCH (09:06)
--- NOTE | 2025-02-02 11:52 | Electrocardiogram Report ---
Test Reason : Blood Pressure : */* mmHG Vent. Rate : 68 BPM Atrial Rate : 68 BPM P-R Int : 142 ms QRS Dur : 84 ms QT Int : 400 ms P-R-T Axes : 42 43 63 degrees QTcB Int : 425 ms Normal sinus rhythm Normal ECG When compared with ECG of 28-May-2024 17:13, No significant change was found Confirmed by Reynaldo Cash ([id number]) on 02/02/2025 11:51:57 AM Referred By: REFERRED SELF Confirmed By: Reynaldo Cash
--- NOTE | 2025-02-02 14:04 | Urology Consultation ---
<Statement entered by Sheldon Norton MD - 02/02/25 17:14> 44-year-old female with history of metastatic colon cancer, now with new right- sided hydronephrosis and delayed nephrogram on imaging. Urinalysis is not suspicious for infection and renal function remained stable. At this point, I do not think she urgently requires ureteral stent placement, however due to the new hydronephrosis I think she will require eventual evaluation with ureteroscopy and likely stent placement. Pending her clinical course, this may be something we can do while she is in the hospital. Urology will follow along. Date of Consultation February 02, 2025 Assessment & Plan (1) Hydronephrosis of right kidney: Plan 44yo F with a hx of metastatic colon adenocarcinoma mets to liver and peritoneum admitted with abdominal pain. CT abdomen pelvis showed a new finding of moderate right sided hydronephrosis with abrupt narrowing noted involving the right distal ureter with perinephric fat stranding. Urology consulted for right sided hydronephrosis. She is afebrile and hemodynamically stable at present Labs show no leukocytosis and normal renal function Urinalysis without signs of infection or blood Pain is currently managed with medication and she is not appropriately NPO. No plan for intervention at this time. She will eventually need further workup with cystoscopy and right ureteroscopy, but this could be arranged as one outpatient procedure. However, if she is clinically worsening or has ongoing severe pain, we can revisit ureteral stent placement. Continue supportive care and pain management. Urology will follow along, please contact us with any changes in patient's clinical status. History of Present Illness Attending Physician: Brooke Velásquez MD History of Present Illness 44-year-old female with a past medical history significant for metastatic colon adenocarcinoma mets to liver and peritoneum, perforated div erticulitis/adenocarcinoma status post colostomy, pulm embolism on Eliquis who presented to the ED with abdominal pain. Patient reported ongoing abdominal pain for the past 3 weeks. She followed with [facility] [place]. She had couple of CT scans in the last couple of weeks for evaluation of abdominal pain. First CT scan with contrast was done 01/20/2025 which showed small hepatic abscess and she was placed on Bactrim. Yesterday she reports worsening pain to the right flank/back and therefore presented to the emergency room. CT abdomen pelvis showed a new finding of moderate right sided hydronephrosis with abrupt narrowing noted involving the right distal ureter with perinephric fat stranding. Urology was consulted for right hydronephrosis. Patient was seen at bedside today in the ED. She is awake and resting in bed on arrival. NAD. Pain currently well-controlled with medication. Denies fever, chills, nausea, vomiting. Denies hematuria or dysuria. Feels she empties well but takes time. Reports a poor appetite. Denies prior urological history. She did have [address] abd pelvis at [facility]. - CT abd pelvis without 01/26 (report) noted no stones or hydronephrosis. - CT abd pelvis with contrast 01/20 (report) noted no stones or hydronephrosis. Allergies Allergy/AdvReac Type Severity Reaction Status Date / Time No Known Allergies Allergy Verified 05/28/24 17:29 Home Medications Medication Instructions Recorded Confirmed Type apixaban 5 mg tablet (Eliquis) 5 mg PO BID 02/02/25 02/02/25 History buspirone 10 mg tablet 10 mg PO BID 02/02/25 02/02/25 History cyclobenzaprine 5 mg tablet 5 mg PO TID PRN Muscle Spasm 02/02/25 02/02/25 History escitalopram oxalate 20 mg tablet 20 mg PO DAILY 02/02/25 02/02/25 History famotidine 20 mg tablet 20 mg PO BID 02/02/25 02/02/25 History lorazepam 0.5 mg tablet 0.5 mg PO TID PRN Anxiety 02/02/25 02/02/25 History morphine 30 mg tablet,extended 30 mg PO Q12H 02/02/25 02/02/25 History release (MS Contin) ondansetron HCl 4 mg tablet 4 mg PO TID PRN Nausea And Vomiting 02/02/25 02/02/25 History oxycodone 5 mg tablet 5 mg PO Q6H PRN Pain 02/02/25 02/02/25 History sulfamethoxazole 800 1 tab PO BID 02/02/25 02/02/25 History mg-trimethoprim 160 mg tablet Patient History Medical History Peritonitis Abdominal pain Acute diverticulitis History of Clostridium difficile infection diagnosed 02/09/24 while admitted in hospital - treated with Vancomycin until 02/27/24 Colostomy present done 02/04/24 stoma revised 02/06/24 with an additional 4.5cm of the colon removed History of diverticulitis history of multiple flares over the past year Hx of deep venous thrombosis (2010) - s/p childbirth in 2010- was on blood thinner for short time - no DVT noted with PE on 02/16/24 Hx of migraines History of panic attacks History of pulmonary embolism dx 02[place]16/24 [place]>started on Eliquis provoked by malignancy and surgical intervention per records dopplers negative for DVT Adenocarcinoma of colon dx'ed 01/2024 Perforated sigmoid colon - 02/03/24 due to enlarging mass (adenocarcinoma of the colon) - 02/04/24 underwent partial left colon resection and end colostomy Depression with anxiety Surgical History Port-A-Cath in place (03/13/24) Insertion of Access Port with Fluoroscopy into Right Internal Jugular Vein(Right) - Elizabeth Velasquez DO [place] teeth removed H/O abdominal surgery (02/05/24) Exploratory Laparoscopy Revision of Colostomy and Stoma(Not Applicable) - Elizabeth Velasquez DO History of x 2 H/O gastric sleeve (2021) History of colon resection (02/04/24) p Diagnostic Laparoscopy, with a laparoscopic colon resection, Abdominal Wash Out, Creation Colostomy(Not Applicable) - Elizabeth Velasquez DO Extensive lysis of adhesions Family History Other No family history of adverse response to anesthesia Social History Smoking Status: Never smoker Second Hand Exposure: No; Do You Dip or Chew Tobacco: No; Tobacco Cessation Education Requested by Patient: No Hx Alcohol Use: No Hx Substance Use: No Preferred Language: Somali Communication Ability: Effective Visual Impairment: No Limitations Grounds Caretaker Required: No Beliefs That Will Affect Care: None Current Living Situation: Spouse Current Living Situation Comment: Home Feels Safe at Home: Yes Safety Concerns: Feels Safe At This Time Assistive Devices: None Review of Systems Review of Systems: All systems reviewed & are unremarkable except as noted in HPI & below Physical Exam Constitutional: no acute distress Respiratory: normal respiratory effort; no respiratory distress and no labored breathing Musculoskeletal: Head/Neck/Chest: normocephalic Skin: No visible rashes or lesions to exposed skin areas Neurologic: awake Psychiatric: A+Ox3, euthymic affect Results & Data Vital Signs (Past 12 Hours) Vital Signs Temp Pulse Pulse Resp BP BP Pulse Ox 02/02/25 11:34 96 H 24 120/95 99 02/02/25 10:52 83 20 120/98 99 02/02/25 10:17 106 H 20 127/101 H 99 02/02/25 09:49 96 H 16 125/107 H 99 02/02/25 07:44 85 20 121/84 99 02/02/25 07:02 79 02/02/25 07:01 77 18 100 02/02/25 06:44 87 L 02/02/25 06:39 89 11 L 92 02/02/25 06:00 76 19 116/86 95 02/02/25 05:36 69 10 L 93 02/02/25 05:00 76 10 L 120/91 92 02/02/25 04:09 67 16 132/92 98 02/02/25 03:51 78 14 134/80 97 02/02/25 03:05 67 13 97 02/02/25 02:53 72 02/02/25 02:43 37.3 C 69 13 140/93 98 O2 Del Method O2 Flow Rate 02/02/25 11:34 Nasal Cannula 2 02/02/25 10:52 Nasal Cannula 2 02/02/25 10:17 Nasal Cannula 2 02/02/25 09:49 Nasal Cannula 2 02/02/25 07:44 Nasal Cannula 2 02/02/25 07:02 02/02/25 07:01 Nasal Cannula 2 02/02/25 06:44 Room Air 0 02/02/25 06:39 02/02/25 06:00 02/02/25 05:36 02/02/25 05:00 02/02/25 04:09 02/02/25 03:51 02/02/25 03:05 Room Air 02/02/25 02:53 02/02/25 02:43 Room Air PG Care Time/CCT Total # of Minutes Spent Total Time Spent with Patient: Total time spent is greater than 50% in coordination of care (as documented) at patient's floor/unit and/or counseling patient: Coding Level of Care Code 97631 IN/OBS CONSULT LVL 3,45M Diagnoses Hydronephrosis of right kidney N13.30
--- NOTE | 2025-02-02 14:45 | Communication Note ---
Date of Service: February 02, 2025 Patient was seen and examined at bedside. 44-year-old female with past medical history significant for metastatic colon adenocarcinoma mets to liver and peritoneum, perforated diverticulitis/adenocarcinoma status post colostomy, pulm embolism on Eliquis, C. difficile s/ p treatment, anxiety and depression, iron deficiency anemia presents with abdominal pain. Patient has ongoing abdominal pain since last 3 weeks [employer]. Her cancer surgeon is at [facility]. She followed with [facility] [place]. She had couple of CAT scans in the last couple of weeks. First CAT scan with contrast was done 01/20/2025 which showed small hepatic abscess and she was placed on Bactrim. Repeat CAT scan was done January 26, 2025 without contrast which was not obvious with abscess but the lesions were smaller in size. There is plan to repeat CAT scan 02/03. She also seems getting PT to come to help with back pain and to strengthen abdominal muscles. Saw PCP yesterday. PCP prescribed morphine sulfate ER 30 mg twice daily as oxycodone was not working. Patient's is working with her insurance to get the MS Contin approved. But because abdominal pain is not getting better she came to the ER 02/02. Abdominal pain: Hepatic abscess: due for repeat CT scan on 02/03, pt on bactrim per her [facility] ID physician. Going on for last 3 weeks, deemed musculoskeletal by OP providers per pt. Admitting CTAP w/ Moderate right-sided hydronephroureterosis, enhancing hepatic lesions, and other findings s/o post op status. PCP prescribed MS Contin 30mg twice daily but patient has not gotten it yet, still in process per nurse navigator. 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 Urine analysis negative for UTI. Monitor off antibiotic. Will seek urology assistance for mx. Metastatic colon adenocarcinoma Mets to liver and peritoneum Perforated diverticulitis Status post colostomy Follows with [facility] History of PE: On Eliquis Anxiety and depression: Continue home medications DVT prophylaxis: Eliquis Disposition: Medical floor Full code. For detailed information on the patient, refer to today's H&P note.
[2025-02-02] MEDS: ACETAMINOPHEN 325 MG TAB PO PRN (15:21)
[2025-02-02] MEDS ORDERED: MoRPHine SULFATE 4 MG/ML 1 ML CARP\\VIAL IV PRN (19:55)
[2025-02-02] MEDS: MoRPHine SULFATE 4 MG/ML 1 ML CARP\\VIAL IV STA (20:27)
[2025-02-02] MEDS: ONDANSETRON INJ 2 MG/ML 2 ML VIAL IV PRN (20:35)
[2025-02-03] MEDS: CYCLOBENZAPRINE HCL 5 MG TAB PO PRN (00:10)
[2025-02-03] MEDS ORDERED: HYDROmorphone INJ 0.5 MG/0.5 ML SYR IV PRN (01:16)
[2025-02-03] MEDS: HYDROmorphone INJ 0.5 MG/0.5 ML SYR IV STA (01:23)
[2025-02-03] MEDS: MoRPHine SULFATE 4 MG/ML 1 ML CARP\\VIAL IV PRN (03:25)
[2025-02-03] MEDS: HEPARIN 100 UNIT/ML 5ML FLUSH FLUSH PRN (06:03)
[2025-02-03 06:09] LABS: Hematocrit (blood only) 30.2 % (37.0-47.0); Hemoglobin 9.6 g/dl (12.0-16.0); Immature Granulocytes # (auto) 0.03 K/uL (0.01-0.20); Immature Granulocytes % (auto) 0.4 %; Mean Corpuscular Hemoglobin 26.0 pg (25.0-34.0); Mean Corpuscular Volume 81.8 fL (80.0-100.0); Platelet Count 215 K/uL (130-400); RDW Standard Deviation 50.6 fL (36.4-46.3); Red Blood Count 3.69 M/uL (4.20-5.40); White Blood Count 8.39 K/ul (4.8-10.8)
[2025-02-03 06:25] LABS: Anion Gap 10.0 (3-11); Blood Urea Nitrogen 10.0 mg/dl (6-23); Calcium 8.7 mg/dl (8.6-10.3); Carbon Dioxide 25.0 mmol/L (21-32); Chloride 101.0 mmol/L (98-107); Creatinine Clr Calc Pharmacy 101.1 ml/min; Glucose 93.0 mg/dl (70-99(Fasting)); Magnesium 1.6 mg/dl (1.7-2.4); Potassium 3.7 mmol/L (3.5-5.1); Sodium 136.0 mmol/L (136-145)
[2025-02-03] MEDS: MAGNESIUM SULFATE / D5W 1 GM/100 ML BAG IV SCH (09:15)
[2025-02-03] MEDS: PIPERACILLIN/TAZOBACTAM 4.5 GM/100 ML BAG IV SCH (09:15)
--- NOTE | 2025-02-03 12:05 | Urology Progress Note ---
<Statement entered by Sheldon Norton MD - 02/03/25 15:54> This is a 44-year-old female with new right-sided hydronephrosis. She is having ongoing right-sided flank pain. There appears to be a transition point in the mid ureter, although there is no obvious stone or clear cause of obstruction. We reviewed plan for cystoscopy, right retrograde pyelogram, right ureteroscopy, possible ureteral biopsy, right ureteral stent placement. We reviewed risks and benefits of surgery. She expressed understanding and would like to proceed. Date of Service February 03, 2025 Assessment & Plan (1) Hydronephrosis of right kidney: (2) Right flank pain: Plan 44yo F with a hx of metastatic colon adenocarcinoma mets to liver and peritoneum admitted with abdominal pain. CT abdomen pelvis showed a new finding of moderate right sided hydronephrosis with abrupt narrowing noted involving the right distal ureter with perinephric fat stranding. Urology consulted for right sided hydronephrosis. Tmax 37.8C this morning. Normotensive. Labs show no leukocytosis and normal renal function. Urinalysis was not suspicious for infection. Continues to have severe right sided pain, managing with PRN Dilaudid. She has been NPO. Given the new finding of hydronephrosis and her ongoing right sided pain, we discussed proceeding with cystoscopy, right ureteroscopy, possible biopsy and stent placement in the OR today -She is agreeable. Risks and benefits to be reviewed with patient by Dr. Norton. Keep NPO. Continue supportive care and pain management. She is covered with scheduled oral Bactrim and IV Zosyn. Urology will follow. Admission and Anticipated Discharge Date Admission Date: February 02, 2025 Subjective Patient seen at bedside this morning. Resting in bed on arrival. No acute distress. Had severe pain throughout the night. She recently had a dose of Dilaudid so her pain is currently controlled. She has been NPO. Review of Systems Constitutional: as per Subjective / HPI Genitourinary: as per Subjective / HPI Physical Exam Constitutional: no acute distress Respiratory: no respiratory distress and no labored breathing Gastrointestinal (Abdomen): Right ostomy Neurologic: moves all extremities and awake Psychiatric: A+Ox3, euthymic affect Results & Data Vital Signs (Past 12 Hours) Vital Signs Temp Pulse Resp BP Pulse Ox O2 Del Method 02/03/25 07:43 37.8 C H 118 H 17 119/80 90 Room Air PG Care Time/CCT Total # of Minutes Spent Total Time Spent with Patient: Total time spent is greater than 50% in coordination of care (as documented) at patient's floor/unit and/or counseling patient: Coding Level of Care Code 85216 SUB INP/OBS CARE 2/35MIN Diagnoses Hydronephrosis of right kidney N13.30 Right flank pain R10.A1
--- NOTE | 2025-02-03 12:38 | Infectious Disease Consult ---
Date of Service February 03, 2025 Telehealth Information I performed this visit using a real-time telehealth connection between my location and the patients location ([facility]). After connecting through interactive tele-video, patient was identified by name and date of and/or wristband check.Patient (or authorized healthcare insurance account representative) was informed that this was a telemedicine visit and it was being conducted confidentially over secure lines. My office door was closed and no one else was present in the room with me.Patient (or authorized healthcare insurance account representative) provided consent to proceed with the visit, expressed an understanding of privacy and security of the telemedicine visit, and gave permission to have a hospital insurance account representative in the room in order to assist with the visit and to conduct portions of the visit, as needed. I informed the patient (or authorized healthcare insurance account representative) that I reviewed their record and presented the opportunity for them to ask any questions regarding the visit today. The patient agreed to participate. febrile, ? liver abscess worsening Assessment & Plan (1) Intractable abdominal pain: Plan: supportive care (2) Abscess, hepatic: Plan: continue bactrim and amoxicillin Plan 44 y/o F who reports she had abdominal surgery in October which was complicated by intra-hepatic abscesses for which she was treated with ertapenem for 4 weeks and then placed on amoxicillin and bactrim with repeat CT abdomen imaging which have showed decreasing intra-hepatic abscesses .Discussed with her ID doctor's office and patient's wound cultures grew ESBL E Coli and ampicillin susceptible enterococcus faecalis and so I agree with continuing bactrim 2DS PO BID and amoxicillin 500 mg PO TID with repeat imaging to determine final resolution .Patient will continue to follow with Dr Burnett .Thank you for allowing us to pa rticipate in the care of this patient ID will sign off History of Present Illness History of Present Illness 44 y/o F PMHx metastatic colon adenocarcinoma with mets to liver and peritoneum, perforated diverticulitis/adenocarcinoma status post colostomy, pulmonary embolism on Eliquis, C. difficile s/p treatment, anxiety and depression, iron deficiency anemia who presented with abdominal pain for 3 weeks.Her CAT scan done 01/20/2025 showed small hepatic abscesses and she was placed on Bactrim when her cultures . Repeat CAT scan was done 01/26/25 without contrast which was not obvious with abscess but the lesions were smaller in size.Due to her worsening abdominal pain she presented to the ER at [facility] where she was admitted. Patient is currently on zosyn and bactrim Allergies Allergy/AdvReac Type Severity Reaction Status Date / Time No Known Allergies Allergy Verified 05/28/24 17:29 Home Medications Medication Instructions Recorded Confirmed Type apixaban 5 mg tablet (Eliquis) 5 mg PO BID 02/02/25 02/02/25 History buspirone 10 mg tablet 10 mg PO BID 02/02/25 02/02/25 History cyclobenzaprine 5 mg tablet 5 mg PO TID PRN Muscle Spasm 02/02/25 02/02/25 History escitalopram oxalate 20 mg tablet 20 mg PO DAILY 02/02/25 02/02/25 History famotidine 20 mg tablet 20 mg PO BID 02/02/25 02/02/25 History lorazepam 0.5 mg tablet 0.5 mg PO TID PRN Anxiety 02/02/25 02/02/25 History morphine 30 mg tablet,extended 30 mg PO Q12H 02/02/25 02/02/25 History release (MS Contin) ondansetron HCl 4 mg tablet 4 mg PO TID PRN Nausea And Vomiting 02/02/25 History oxycodone 5 mg tablet 5 mg PO Q6H PRN Pain 02/02/25 02/02/25 History sulfamethoxazole 800 1 tab PO BID 02/02/25 02/02/25 History mg-trimethoprim 160 mg tablet Patient History Medical History Nausea & vomiting Small bowel obstruction Peritonitis Abdominal pain Acute diverticulitis History of Clostridium difficile infection diagnosed 02/09/24 while admitted in hospital - treated with Vancomycin until 02/27/24 Colostomy present done 02/04/24 stoma revised 02/06/24 with an additional 4.5cm of the colon removed History of diverticulitis history of multiple flares over the past year Hx of deep venous thrombosis (2010) - s/p childbirth in 2010- was on blood thinner for short time - no DVT noted with PE on 02/16/24 Hx of migraines History of panic attacks History of pulmonary embolism dx 02/16/24 at [place]>started on Eliquis provoked by malignancy and surgical intervention per records dopplers negative for DVT Adenocarcinoma of colon dx'ed 01/2024 Perforated sigmoid colon - 02/03/24 due to enlarging mass (adenocarcinoma of the colon) - 02/04/24 underwent partial left colon resection and end colostomy Depression with anxiety Surgical History Port-A-Cath in place (03/13/24) Insertion of Access Port with Fluoroscopy into Right Internal Jugular Vein(Right) - Elizabeth Velasquez DO [place] teeth removed H/O abdominal surgery (02/05/24) Exploratory Laparoscopy Revision of Colostomy and Stoma(Not Applicable) - Elizabeth Velasquez DO History of x 2 H/O gastric sleeve (2021) History of colon resection (02/04/24) p Diagnostic Laparoscopy, with a laparoscopic colon resection, Abdominal Wash Out, Creation Colostomy(Not Applicable) - Elizabeth Velasquez DO Extensive lysis of adhesions Family History Other No family history of adverse response to anesthesia Social History Smoking Status: Never smoker Second Hand Exposure: No; Do You Dip or Chew Tobacco: No; Tobacco Cessation Education Requested by Patient: No Hx Alcohol Use: No Hx Substance Use: No Preferred Language: Citizen Of [place] Communication Ability: Effective Visual Impairment: No Limitations Manager Clinical Applications Required: No Beliefs That Will Affect Care: None Current Living Situation: Spouse Current Living Situation Comment: Home Feels Safe at Home: Yes Safety Concerns: Feels Safe At This Time Assistive Devices: None Review of Systems No respiratory distress Physical Exam Awake alert oriented Results & Data Vital Signs (Past 12 Hours) Vital Signs Temp Pulse Resp BP Pulse Ox O2 Del Method 02/03/25 07:43 37.8 C H 118 H 17 119/80 90 Room Air Laboratory Results ESBL E col RX M.I.C. --- --------- Amikacin S <=16 Amox/Clav S <=8/4 Ampicillin R >16 Amp/Sul S <=4/2 Cefazolin R >16 Cefepime R 16 Cefotaxime R >32 Cefoxitin S <=8 Ceftriaxone R >32 Cefuroxime R >16 Ciprofloxacin R >2 Ertapenem S <=0.5 Gentamicin S <=2 Levofloxacin R >4 Meropenem S <=1 Tobramycin S <=2 Trimeth/Sulfa S <=0.5/9.5 Pip/Tazo S <=8 S = SENSITIVE I = INTERMEDIATE R = RESISTANT Diagnostic Findings IMPRESSION: 1. Moderate right-sided hydronephroureterosis with abrupt narrowing noted involving the right distal ureter with perinephric fat starnding- new finding. 2. Right lower quadrant ileostomy status without obvious complication. - new finding. 3. Free fluid is noted in the right paracolic region, periheptic region and in the right iliac fossa- new finding. 4. Evidence of clumping of small bowel loops is noted involving the lower quadrant with possible congestion noted along the anterior abdominal wall, likely post interventional changes - new finding. However, no obvious changes of bowel obstruction. 5. Evidence of multiple mildly peripherally enhancing hypodense lesions is noted in the right lobe of the liver; the largest measures about 28 x 22 mm. New. 6. Pelvic venous engorgement seen. New finding. Post hysterectomy status. 7. The right gonadal vein is slightly dilated with a central low-attenuation filling defect in its middle segment, just distal to its junction with inferior vena cava. New finding. 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
[2025-02-03] MEDS ORDERED: LIDOCAINE 2% 2 ML VIAL/AMP(20MG/ML) INFIL ONE (14:54)
[2025-02-03] MEDS ORDERED: PROPOFOL IV EMULSION 10 MG/ML 20 ML VIAL IV ONE (14:54)
[2025-02-03] MEDS ORDERED: MIDAZOLAM HCL 1 MG/ML 2ML VIAL ONE (14:55)
--- NOTE | 2025-02-03 15:00 | Hospitalist Progress Note ---
Date of Service February 03, 2025 Assessment & Plan (1) Hydronephrosis of right kidney: Plan 44-year-old female with past medical history significant for metastatic colon adenocarcinoma mets to liver and peritoneum, perforated diverticulitis/adenocarcinoma status post colostomy, pulm embolism on Eliquis, C. difficile s/ p treatment, anxiety and depression, iron deficiency anemia presents with abdominal pain. Patient has ongoing abdominal pain since last 3 weeks [employer]. Her cancer surgeon is at [facility]. She followed with [facility] [place]. She had couple of CAT scans in the last couple of weeks. First CAT scan with contrast was done 01/20/2025 which showed small hepatic abscess and she was placed on Bactrim. Repeat CAT scan was done January 26, 2025 without contrast which was not obvious with abscess but the lesions were smaller in size. There is plan to repeat CAT scan 02/03. She also seems getting PT to come to help with back pain and to strengthen abdominal muscles. Saw PCP yesterday. PCP prescribed morphine sulfate ER 30 mg twice daily as oxycodone was not working. Patient's is working with her insurance to get the MS Contin approved. But because abdominal pain is not getting better she came to the ER 02/02. Abdominal pain: Hepatic abscess: due for repeat CT scan on 02/03, pt on bactrim per her [facility] ID physician. Going on for last 3 weeks, deemed musculoskeletal by OP providers per pt. Admitting CTAP w/ Moderate right-sided hydronephroureterosis, enhancing hepatic lesions, and other findings s/o post op status. PCP prescribed MS Contin 30mg twice daily but patient has not gotten it yet, still in process per nurse navigator. IV Dilaudid as needed for now Pain management consult Patient developed fever and continues to be tachycardic 02/03, CTAP with IV contrast with peripherally enhancing hypodense lesions in the liver. hold bactrim, start zosyn 02/03. ID consult. 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 Urine analysis negative for UTI. Uro on board: plan for cystoscopy, right ureteroscopy, possible biopsy and stent placement in the OR today Metastatic colon adenocarcinoma Mets to liver and peritoneum Perforated diverticulitis Status post colostomy Follows with [facility] History of PE: On Eliquis Anxiety and depression: Continue home medications DVT prophylaxis: Eliquis Disposition: Medical floor Full code. Admission and Anticipated Discharge Date Admission Date: February 02, 2025 Subjective Patient was seen and examined at bedside. Patient was lying in bed, on room air, NAD, resting comfortably. Patient reports pain under control this morning. Patient had fever and tachycardia earlier in the morning, Bactrim is put on hold and Zosyn started. Patient was made aware. ID consult was placed. Physical Exam Physical Exam: General- Not in acute distress Head- atraumatic Eyes- PERRL. ENT- oropharynx clear Neck- supple, no JVD. Lungs- clear to auscultation no wheezing or crackles Heart- regular rhythm; no murmur, no gallop. Abdomen- normal bowel sounds, soft, mild diffuse discomfort , no distension colostomy bag seen With fecal output. Extremities- no pretibial edema, no erythema Neuro- alert, oriented PERRL,no facial palsy; no dysarthria; moves extremities Results & Data Results & Data Vital Signs (Past 12 Hours) Vital Signs Temp Pulse Resp BP Pulse Ox O2 Del Method 02/03/25 14:33 36.9 C 93 H 17 121/85 92 Room Air 02/03/25 07:43 37.8 C H 118 H 17 119/80 90 Room Air
--- NOTE | 2025-02-03 16:00 | Anesthesiology Consultation ---
Date of Service February 03, 2025 Assessment & Plan Chart Review Chart Review: Acceptable Risk for Surgery and Patient NOT seen in Pre Admission Testing Consults Requested none ASA ASA3 Proposed Anesthesia Anesthesia Type: General Risk / Benefits Reviewed With: PT / POA / Parent / Guardian, Accepts Plan and Informed Consent Obtained History Surgery Operation Date: 02/03/25 10:30 Proposed Procedures p Cystoscopy Right Retrograde Pyelogram, Ureteroscopy, Possible Stent, Possible Biopsy - Sheldon Norton MD Height/Weight Height: 5 ft 3 in Weight: 73.7 kg Allergies Allergy/AdvReac Type Severity Reaction Status Date / Time No Known Allergies Allergy Verified 05/28/24 17:29 Medications Home Medications Medication Instructions Recorded Confirmed Last Taken apixaban 5 mg tablet (Eliquis) 5 mg PO BID 02/02/25 02/02/25 Unknown buspirone 10 mg tablet 10 mg PO BID 02/02/25 02/02/25 Unknown cyclobenzaprine 5 mg tablet 5 mg PO TID PRN Muscle Spasm 02/02/25 02/02/25 Unknown escitalopram oxalate 20 mg tablet 20 mg PO DAILY 02/02/25 02/02/25 Unknown famotidine 20 mg tablet 20 mg PO BID 02/02/25 02/02/25 Unknown lorazepam 0.5 mg tablet 0.5 mg PO TID PRN Anxiety 02/02/25 02/02/25 Unknown morphine 30 mg tablet,extended 30 mg PO Q12H 02/02/25 02/02/25 Unknown release (MS Contin) ondansetron HCl 4 mg tablet 4 mg PO TID PRN Nausea And Vomiting 02/02/25 02/02/25 Unknown oxycodone 5 mg tablet 5 mg PO Q6H PRN Pain 02/02/25 02/02/25 Unknown sulfamethoxazole 800 1 tab PO BID 02/02/25 02/02/25 Unknown mg-trimethoprim 160 mg tablet Active Medications Generic Name Dose Route Start Last Admin Trade Name Freq PRN Reason Stop Dose Admin Acetaminophen 650 mg 02/02/25 07:22 02/03/25 08:13 Acetaminophen 325 Mg Tab PO 03/04/25 07:21 650 mg Q4H PRN Administration pain/fever Apixaban 5 mg 02/02/25 09:00 02/03/25 09:10 Apixaban 5 Mg Tablet PO 03/04/25 08:59 5 mg BID LORETTA Administration Buspirone HCl 10 mg 02/02/25 09:00 02/03/25 08:16 Buspirone 5 Mg Tab PO 03/04/25 08:59 10 mg BID LORETTA Administration Cyclobenzaprine HCl 5 mg 02/02/25 07:22 02/03/25 00:10 Cyclobenzaprine Hcl 5 Mg Tab PO 03/04/25 07:21 5 mg TID PRN Administration Muscle Spasm Escitalopram Oxalate 20 mg 02/02/25 09:00 02/02/25 20:27 Escitalopram Oxalate 20 Mg Tab PO 03/04/25 08:59 20 mg DAILY LORETTA Administration Famotidine 20 mg 02/02/25 09:00 02/03/25 08:17 Famotidine 20 Mg Tab PO 03/04/25 08:59 20 mg BID LORETTA Administration Heparin Sodium (Porcine) 5 ml 02/03/25 05:43 02/03/25 13:13 Heparin 100 Unit/Ml 5ml Flush FLUSH 03/05/25 05:42 5 ml PRN PRN Administration Flush Hydromorphone HCl 0.5 mg 02/02/25 20:03 02/03/25 14:06 Hydromorphone Inj 0.5 Mg/0.5 Ml Syr IV 02/16/25 20:02 0.5 mg Q4H PRN Administration Mod-Sev Pain (Scale 4-10) Piperacillin Sod/Tazobactam Sod 4.5 gm in 100 mls @ 25 mls/hr 02/03/25 09:00 02/03/25 13:16 Zosyn IV 02/13/25 08:59 Infused Q8H LORETTA Infusion Protocol Morphine Sulfate 3 mg 02/03/25 01:42 02/03/25 12:07 Morphine Sulfate 4 Mg/Ml 1 Ml Carp\Vial IV 02/17/25 01:41 3 mg Q4H PRN Administration Moderate Pain (Scale 4, 5, 6) Ondansetron HCl 4 mg 02/02/25 07:22 02/03/25 03:27 Ondansetron Inj 2 Mg/Ml 2 Ml Vial IV 03/04/25 07:21 4 mg Q6H PRN Administration Nausea Oxycodone HCl 5 mg 02/02/25 08:58 02/03/25 08:13 Oxycodone Hcl Ir 5 Mg Tab (Immediate Release) PO 02/16/25 08:57 5 mg Q6H PRN Administration Pain Trimethoprim/Sulfamethoxazole 1 tab 02/02/25 09:00 02/02/25 20:27 Sulfamethoxazole/Trimethoprim Ds 800/160mg Tab PO 02/12/25 08:59 1 tab BID LORETTA Administration NPO Date Last Intake of Fluids: 02/02/25 Time Last Intake of Fluids: 23:59 Date Last Intake of Solids: 02/02/25 Time Last Intake of Solids: 17:00 Past Medical History Medical History Nausea & vomiting Small bowel obstruction Peritonitis Abdominal pain Acute diverticulitis History of Clostridium difficile infection diagnosed 02/09/24 while admitted in hospital - treated with Vancomycin until 02/27/24 Colostomy present done 02/04/24 stoma revised 02/06/24 with an additional 4.5cm of the colon removed History of diverticulitis history of multiple flares over the past year Hx of deep venous thrombosis (2010) - s/p childbirth in 2010- was on blood thinner for short time - no DVT noted with PE on 02/16/24 Hx of migraines History of panic attacks History of pulmonary embolism dx 02/16/24 at [facility]>started on Eliquis provoked by malignancy and surgical intervention per records dopplers negative for DVT Adenocarcinoma of colon dx'ed 01/2024 Perforated sigmoid colon - 02/03/24 due to enlarging mass (adenocarcinoma of the colon) - 02/04/24 underwent partial left colon resection and end colostomy Depression with anxiety Exercise / Class Metabolic Activity II 4-5 Yardwork/Stairs/Walk up hill Past Family History Family History Other No family history of adverse response to anesthesia Past Surgical History Surgical History Port-A-Cath in place (03/13/24) Insertion of Access Port with Fluoroscopy into Right Internal Jugular Vein(Right) - Elizabeth Velasquez DO Center teeth removed H/O abdominal surgery (02/05/24) Exploratory Laparoscopy Revision of Colostomy and Stoma(Not Applicable) - Elizabeth Velasquez DO History of x 2 H/O gastric sleeve (2021) History of colon resection (02/04/24) p Diagnostic Laparoscopy, with a laparoscopic colon resection, Abdominal Wash Out, Creation Colostomy(Not Applicable) - Elizabeth Velasquez DO Extensive lysis of adhesions Past Anesthesia History No Hx of Anesthesia Complications and No Family Hx of Anesthesia Complications History of PONV No Hx of PONV and No Hx of Motion Sickness Social History Smoking Status: Never smoker Do You Dip or Chew Tobacco: No Hx Alcohol Use: No Hx Substance Use: No substance use type: does not use Review of Systems ROS Unobtainable: All systems reviewed & are unremarkable except as noted in HPI & below Physical Exam Vital Signs Last Vital Signs Temp 36.9 C 02/03/25 15:18 Pulse 91 H 02/03/25 15:18 Resp 18 02/03/25 15:18 BP 115/82 02/03/25 15:18 Pulse Ox 93 02/03/25 15:18 O2 Del Method Room Air 02/03/25 15:18 O2 Flow Rate 2 02/02/25 16:27 ENMT Mouth: no TMJ abnormality Thyromental Distance: > or= 3.5 Finger Breadths Mallampati Class: II Neck normal visual inspection and trachea midline; neck extension not limited Respiratory normal respiratory effort Auscultation: lungs clear to auscultation bilaterally Cardiovascular Rate/Rhythm: regular rate and regular rhythm Heart Sounds: no murmur Musculoskeletal Spine: normal cervical ROM Extremities: full ROM of extremities Neurologic moves all extremities Psychiatric Orientation: alert and oriented x 3 Testing Laboratory Results 02/03/25 05:45 02/03/25 05:45 Urine Color Yellow 02/02/25 05:26 Urine Appearance Clear (Clear) 02/02/25 05:26 Urine pH 5.0 (4.5-7.5) 02/02/25 05:26 Ur Specific Codorus > 1.045 (1.000-1.030) H 02/02/25 05:26 Urine Protein Trace (Negative) H 02/02/25 05:26 Urine Glucose (UA) Negative (Negative) 02/02/25 05:26 Urine Ketones 2+ (Negative) H 02/02/25 05:26 Urine Nitrite Negative (Negative) 02/02/25 05:26 Ur Leukocyte Esterase Negative (Negative) 02/02/25 05:26 Urine WBC (Auto) 0-5 /hpf (0-5) 02/02/25 05:26 Urine RBC (Auto) 0-2 /hpf (0-2) 02/02/25 05:26 U Hyaline Cast (Auto) 0-2 /lpf (0-2) 02/02/25 05:26 U Epithel Cells (Auto) 0-2 /hpf (0-2) 02/02/25 05:26 Urine Bacteria (Auto) None Seen (None Seen) 02/02/25 05:26
[2025-02-03] MEDS ORDERED: HYDROmorphone INJ 1 MG/ML SYRINGE IV PRN (16:08)
[2025-02-03] MEDS ORDERED: PROMETHAZINE HCL 6.25 MG in SODIUM CHLORIDE 0.9% 50 ML IV PRN (16:08)
[2025-02-03] MEDS ORDERED: ATROPINE SULFATE 0.1 MG/ML 10ML SYR IV PRN (16:08)
[2025-02-03] MEDS ORDERED: ONDANSETRON INJ 2 MG/ML 2 ML VIAL IV PRN (16:08)
[2025-02-03] MEDS: DIATRIZOATE MEGLUMINE 30% 100ML VIAL INSTIL ONE (16:34)
[2025-02-03] MEDS ORDERED: DEXAMETHASONE SOD INJ 4 MG/ML VIAL ONE (16:35)
[2025-02-03] MEDS ORDERED: ONDANSETRON INJ 2 MG/ML 2 ML VIAL ONE (16:35)
--- NOTE | 2025-02-03 16:42 | Operative Report ---
PG Post Operative Report Pre & Post Diagnosis Operation Date: 02/03/25 10:30 Pre-Op Diagnosis: Hydronephrosis of right kidney Post-Op Diagnosis: Hydronephrosis of right kidney I identified the patient and participated in the time-out.: Yes Procedure Operation Date: 02/03/25 10:30 Actual Procedures p Cystoscopy Right Retrograde Pyelogram, Ureteroscopy, Right Ureteral Stent Insertion(Right) - Sheldon Norton MD Surgeon Sheldon Norton MD Telemetry Technician None Estimated Blood Loss 0 Findings See Below Narrowed area of the mid right ureter at the level of the pelvic brim. No suspicious mucosa, more suspicious for extrinsic compression. Unable to advance ureteroscope past this to surveyed the proximal ureter. Right ureteral stent was left in place. Specimens Urine from right kidney for culture Drains 6 [place] x 24 cm double-J ureteral stent in the right ureter Anesthesia Type General Complications none Disposition Accompanied Patient To Recovery: Yes Disposition: Recovery Room Indications This is a 44-year-old female with history of metastatic colon cancer recently found to have new hydronephrosis and right-sided flank pain. She is brought to the OR for right ureteroscopy and ureteral stent placement. Description of Procedure The patient was identified in the holding area and informed consent was confirmed. She was marked on the right side, then was taken to the operating room where anesthesia was initiated. She was placed in the dorsal lithotomy position with all pressure points appropriately padded. She was prepped and draped in the usual sterile fashion and a preoperative timeout was performed. A well-lubricated cystoscope was inserted per urethra and panendoscopy was performed. The urethra was normal in appearance although the tissue was somewhat friable and bled easily. The bladder was of normal size with ureteral orifices in orthotopic position. I did not appreciate any tumors or stones within the bladder. The right ureteral orifice was identified and cannulated with a 5 [place] open- ended catheter. A retrograde pyelogram was performed demonstrating the distal ureter was normal in course and caliber. There was an abrupt transition point above which the ureter and renal pelvis was dilated. A 0.038" ZIPwire was advanced to the level of the kidney under fluoroscopic guidance. I advanced the flexible ureteroscope alongside the wire to try to further evaluate the transition point. A second wire was used to prop open the ureteral orifice. At the level of the pelvic brim, there was resistance in the ureteroscope did not advance easily. I did not appreciate any suspicious mucosa, however the ureter was clearly tight at this level. I attempted to use the second wire to prop up in this area as well, however even with this, the ureteroscope could not be advanced any further. The ureteroscope was withdrawn. Over the wire, a 6 [place] x 24 centimeter double-J ureteral stent was advanced. When the wire was removed, the proximal curl was visualized in the kidney with x-ray, and the distal curl visualized in the bladder with the cystoscope. There was drainage of some cloudy urine from the kidney. A sample of this was collected and sent for culture. At this point the bladder was drained and all instrumentation was removed. The patient was then awakened from anesthesia and was brought to the PACU in stable condition. I attest to the content of the Intraoperative Record and any orders documented therein. Any exceptions are noted below.
--- NOTE | 2025-02-03 17:50 | Anesthesiology Progress Note ---
Date of Service February 03, 2025 Anesthesia Post Procedure Vital Signs Vital Signs: Temp Pulse Pulse Pulse Resp BP BP 02/03/25 17:30 37.1 C 106 H 16 117/84 02/03/25 17:15 37.1 C 102 H 17 105/80 02/03/25 17:05 37.1 C 102 H 15 109/87 02/03/25 16:55 99 H 14 113/78 02/03/25 16:47 36.3 C L 99 H 15 108/75 02/03/25 15:18 36.9 C 91 H 89 18 115/82 02/03/25 14:33 36.9 C 93 H 17 121/85 02/03/25 07:43 37.8 C H 118 H 17 119/80 02/02/25 22:18 37.1 C 83 16 132/86 02/02/25 18:23 Pulse Ox O2 Del Method O2 Flow Rate 02/03/25 17:30 95 Nasal Cannula 2 02/03/25 17:15 96 Nasal Cannula 2 02/03/25 17:05 97 Room Air 02/03/25 16:55 98 Oxymask 7 02/03/25 16:47 92 Oxymask 15 02/03/25 15:18 93 Room Air 02/03/25 14:33 92 Room Air 02/03/25 07:43 90 Room Air 02/02/25 22:18 95 Room Air 02/02/25 18:23 94 Room Air Pain Intensity Abdomen: Pain Intensity: 6 Lower Back: Pain Intensity: 4 Transfer of Care Handoff Completed per policy Notes Mental Status: alert / awake / arousable Patient Amnestic to Procedure: Yes Nausea / Vomiting: adequately controlled Pain: adequately controlled Airway Patency, RR, SpO2: stable & adequate BP & HR: stable & adequate Hydration State: stable & adequate Anesthetic Complications: no major complications apparent and Pt Satisfied with anesthetic care
[2025-02-04 06:33] LABS: Hematocrit (blood only) 29.8 % (37.0-47.0); Hemoglobin 9.1 g/dl (12.0-16.0); Mean Corpuscular Hemoglobin 24.7 pg (25.0-34.0); Mean Corpuscular Volume 81.0 fL (80.0-100.0); Platelet Count 269 K/uL (130-400); RDW Standard Deviation 51.1 fL (36.4-46.3); Red Blood Count 3.68 M/uL (4.20-5.40); White Blood Count 9.01 K/ul (4.8-10.8)
[2025-02-04 06:55] LABS: Anion Gap 10.0 (3-11); Blood Urea Nitrogen 9.0 mg/dl (6-23); Calcium 8.8 mg/dl (8.6-10.3); Carbon Dioxide 28.0 mmol/L (21-32); Chloride 100.0 mmol/L (98-107); Creatinine Clr Calc Pharmacy 101.1 ml/min; Glucose 109.0 mg/dl (70-99(Fasting)); Magnesium 2.0 mg/dl (1.7-2.4); Potassium 3.8 mmol/L (3.5-5.1); Sodium 138.0 mmol/L (136-145)
[2025-02-04] MEDS: ALUMINUM/MAGNESIUM SUSP 30 ML UDC PO PRN (07:38)
[2025-02-04] MEDS: POLYETHYLENE (MIRALAX) 17 GM PACK PO PRN (07:38)
--- NOTE | 2025-02-04 07:47 | Fluoroscopy Report ---
FL retrograde includes kub CLINICAL HISTORY: RETROGRADE ADD ON COMPARISON STUDY: None FLUOROSCOPY TIME: 9 seconds FLUOROSCOPY IMAGES: 4 EXPOSURE DOSE: 2 mGy FINDINGS: Fluoroscopy was provided for urologic procedure. IMPRESSION: Intraoperative fluoroscopy. ACT 112: Negative or not required by law. Electronically signed by: Ricardo Green M.D. 02/04/2025 7:45 AM
[2025-02-04] MEDS: ADVANCED PROBIOTIC 625 MG CAPSULE PO SCH (09:45)
[2025-02-04] MEDS: AMOXICILLIN 500 MG CAP PO SCH (09:45)
--- NOTE | 2025-02-04 11:15 | Urology Progress Note ---
Date of Service February 04, 2025 Assessment & Plan (1) Right flank pain: (2) Hydronephrosis of right kidney: Plan Overall she is recovering appropriately from right ureteral stent placement on 02/03/2025 We reviewed the findings during surgery, specifically that I did not appreciate any suspicious mucosa, although there was a narrowed area that I was unable to bypassed with the ureteroscope. I suspect her right flank pain was obstructive in nature, since it has improved with ureteral stent placement. We reviewed typical symptoms that she could have from the stent. No plan for additional urologic intervention at this time. Urology will sign off for now. We will coordinate outpatient follow-up in the next couple weeks and hopefully stent removal after that. Please call with any questions or concerns. Admission and Anticipated Discharge Date Admission Date: February 02, 2025 Subjective 44-year-old female s/p right ureteral stent placement on 11/03/2024 Reports that her right flank pain is better this morning Having increased urinary frequency and some blood in the urine Urine culture from kidney still pending, she remains on amoxicillin and Bactrim Physical Exam Physical Exam: Seated in bed, NAD Breathing comfortably on room air Results & Data Vital Signs (Past 12 Hours) Vital Signs Temp Pulse Resp BP BP Pulse Ox O2 Del Method 02/04/25 07:11 37.0 C 88 16 125/82 90 Room Air 02/04/25 04:00 36.8 C 87 18 106/74 93 Room Air PG Care Time/CCT Total # of Minutes Spent Total Time Spent with Patient: Total time spent is greater than 50% in coordination of care (as documented) at patient's floor/unit and/or counseling patient: Coding Level of Care Code 58574 SUB INP/OBS CARE 05/02MIN Diagnoses Right flank pain R10.A1 Hydronephrosis of right kidney N13.30
--- NOTE | 2025-02-04 13:56 | Hospitalist Progress Note ---
Date of Service February 04, 2025 Assessment & Plan (1) Hydronephrosis of right kidney: Plan 44-year-old female with past medical history significant for metastatic colon adenocarcinoma mets to liver and peritoneum, perforated diverticulitis/adenocarcinoma status post colostomy, pulm embolism on Eliquis, C. difficile s/ p treatment, anxiety and depression, iron deficiency anemia presents with abdominal pain. 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 Her cancer surgeon is at [facility]. She followed with [facility] [place]. She had couple of CAT scans in the last couple of weeks. First CAT scan with contrast was done 01/20/2025 which showed small hepatic abscess and she was placed on Bactrim. Repeat CAT scan was done January 26, 2025 without contrast which was not obvious with abscess but the lesions were smaller in size. There is plan to repeat CAT scan 02/03. She also seems getting PT to come to help with back pain and to strengthen abdominal muscles. Saw PCP yesterday. PCP prescribed morphine sulfate ER 30 mg twice daily as oxycodone was not working. Patient's is working with her insurance to get the MS Contin approved. But because abdominal pain is not getting better she came to the ER 02/02. Abdominal pain: Hepatic abscess: due for repeat CT scan on 02/03, pt on bactrim per her [facility] ID physician. Going on for last 3 weeks, deemed musculoskeletal by OP providers per pt. Admitting CTAP w/ Moderate right-sided hydronephroureterosis, enhancing hepatic lesions, and other findings s/o post op status. PCP prescribed MS Contin 30mg twice daily but patient has not gotten it yet, approved per nurse navigator. IV Dilaudid and po oxy as needed for now. Rivka tylenol. Pain management did eval at bedside, agreed w/ our plan. Patient developed fever and continues to be tachycardic 02/03, CTAP with IV contrast with peripherally enhancing hypodense lesions in the liver. ID evaled, recs are bactrim ds and amox, f/u w/ pt's own ID on dc.will need repeat imaging to determine resolution. 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 Urine analysis negative for UTI. Uro on board: s/p right ureteral stent placement on 02/03/2025. Fu w/ uro on dc. Metastatic colon adenocarcinoma Mets to liver and peritoneum Perforated diverticulitis Status post colostomy Follows with [facility] f/u oncology on dc. History of PE: On Eliquis Anxiety and depression: Continue home medications DVT prophylaxis: Eliquis Disposition: Medical floor Full code. Admission and Anticipated Discharge Date Admission Date: February 02, 2025 Subjective Patient was seen and examined at bedside. Patient was lying in bed, on room air, NAD, resting comfortably. Patient reports pain improving on right w/ stent placement gradually, would like to stay today and see how she does w/ pain reece Made tylenol rivka instead of prn, c/w oxy and dilaudid. No fever, HR is normal. Physical Exam Physical Exam: General- Not in acute distress Head- atraumatic Eyes- PERRL. ENT- oropharynx clear Neck- supple, no JVD. Lungs- clear to auscultation no wheezing or crackles Heart- regular rhythm; no murmur, no gallop. Abdomen- normal bowel sounds, soft, mild diffuse discomfort , no distension colostomy bag seen With fecal output. Extremities- no pretibial edema, no erythema Neuro- alert, oriented PERRL,no facial palsy; no dysarthria; moves extremities Results & Data Results & Data Vital Signs (Past 12 Hours) Vital Signs Temp Pulse Resp BP BP Pulse Ox O2 Del Method 02/04/25 07:11 37.0 C 88 16 125/82 90 Room Air 02/04/25 04:00 36.8 C 87 18 106/74 93 Room Air
[2025-02-04] MEDS: ACETAMINOPHEN 325 MG TAB PO SCH (15:02)
[2025-02-04 22:40] VITALS: RESP 18
[2025-02-04] MEDS: LORazepam 0.5 MG TAB PO PRN (23:45)
[2025-02-05 06:28] LABS: Hematocrit (blood only) 26.1 % (37.0-47.0); Hemoglobin 8.3 g/dl (12.0-16.0); Mean Corpuscular Hemoglobin 25.5 pg (25.0-34.0); Mean Corpuscular Volume 80.3 fL (80.0-100.0); Platelet Count 262 K/uL (130-400); RDW Standard Deviation 50.4 fL (36.4-46.3); Red Blood Count 3.25 M/uL (4.20-5.40); White Blood Count 5.71 K/ul (4.8-10.8)
[2025-02-05 07:02] LABS: Anion Gap 8.0 (3-11); Blood Urea Nitrogen 11.0 mg/dl (6-23); Calcium 8.5 mg/dl (8.6-10.3); Carbon Dioxide 29.0 mmol/L (21-32); Chloride 102.0 mmol/L (98-107); Creatinine Clr Calc Pharmacy 122.4 ml/min; Glucose 96.0 mg/dl (70-99(Fasting)); Potassium 3.3 mmol/L (3.5-5.1); Sodium 139.0 mmol/L (136-145)
[2025-02-05] MEDS: POTASSIUM CHLORIDE CRTAB 20 MEQ TABCR PO STA (09:13)
[2025-02-05] MEDS: PREGABALIN 25 MG CAP PO SCH (09:47)
--- NOTE | 2025-02-05 13:47 | Hospitalist Progress Note ---
Date of Service February 05, 2025 Assessment & Plan (1) Hydronephrosis of right kidney: Plan 44-year-old female with past medical history significant for metastatic colon adenocarcinoma mets to liver and peritoneum, perforated diverticulitis/adenocarcinoma status post colostomy, pulm embolism on Eliquis, C. difficile s/ p treatment, anxiety and depression, iron deficiency anemia presents with abdominal pain. #Stage IV Colon Adenocarcinoma #Cancer Related Pain #Hepatic abscess #S/p Colostomy 2/2 Perforated Diverticular Disease -Going on for last 3 weeks, deemed musculoskeletal by OP providers per pt. -mets in liver and peritoneum -Admitting CTAP w/ Moderate right-sided hydronephroureterosis, enhancing hepatic lesions, and other findings s/o post op status. -PCP prescribed MS Contin 30mg twice daily but patient has not gotten it yet, approved per nurse navigator. -patient with worsening overall pain today, appears to have neuropathic and nociceptive components Plan: -start lyrica 25mg bid for neuropathic pain -start dilaudid 3mg PO q3hrs with IV breakthrough ordered (breakthrough only) for nociceptive pain, stop morphine and oxycodone -start voltaren cream for hips -ID evaled, recs are bactrim ds and amox, f/u w/ pt's own ID on dc.will need repeat imaging to determine resolution. 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 Urine analysis negative for UTI. Uro on board: s/p right ureteral stent placement on 02/03/2025. Fu w/ uro on dc. History of PE -On Eliquis Anxiety and depression -Continue home medications I spent a total of 55 minutes in direct patient care, including [id number] time with the patient and/or family, reviewing medical records, ordering and reviewing diagnostic tests, and coordinating care with other healthcare providers. This time includes: history taking, physical examination, medical decision making, counseling, ECG interpretation, imaging interpretation, lab interpretation, orders, and education, excluding time spent in the performance of separately billed services. Admission and Anticipated Discharge Date Admission Date: February 02, 2025 Subjective Patient seen and examined at bedside. Patient not doing well today. Has significant pain in bilateral hips and in lower abdomen and RUQ. States pain in right back has improved. Frustrated with poor pain control. Describes burning component to abdominal pain and leg pain. Nociceptive throbbing pain in hips. Review of Systems Review of Systems: CONSTITUTIONAL: Patient denies fevers, chills, sweats and weight changes. EYES: Patient denies any visual symptoms. EARS, NOSE, AND THROAT: No difficulties with hearing. No symptoms of rhinitis or sore throat. CARDIOVASCULAR: Patient denies chest pains, palpitations, orthopnea and paroxysmal nocturnal dyspnea. RESPIRATORY: No dyspnea on exertion, no wheezing or cough. GI: No nausea, vomiting, diarrhea, constipation, abdominal pain, hematochezia or melena. : No urinary hesitancy or dribbling. No nocturia or urinary frequency. No abnormal urethral discharge. MUSCULOSKELETAL: RUQ pain, bilateral hip pain, lower abdomen pain NEUROLOGIC: No chronic headaches, no seizures. Patient denies numbness, tingling or weakness. PSYCHIATRIC: Patient denies problems with mood disturbance. No problems with anxiety. ENDOCRINE: No excessive urination or excessive thirst. DERMATOLOGIC: Patient denies any rashes or skin changes. Physical Exam Physical Exam: Gen: A&O 3 NAD HEENT: NCAT, EOMI, not icteric. External ears normal. No rhinorrhea. Moist mucous membranes. Neck: Supple, full range of motion, no observable masses, No meningeal sign. Lungs: No Respiratory distress. CV: RRR, no edema. Abdomen: tenderness in RUQ, epigastric region, lower abdomen, bilateral hips to palpation MSK: No joint swelling, no redness. Skin: No rashes, petechiae, lesions. Normal color per patient. Neuro: Normal Gait, Grossly intact. Psych: Appropriate for situation. Results & Data Results & Data Vital Signs (Past 12 Hours) Vital Signs Temp Pulse Resp BP Pulse Ox O2 Del Method 02/05/25 08:22 37.0 C 93 H 18 126/88 93 Room Air Laboratory Results -personally reviewed, Hgb around baseline, no leukocytosis, creatinine at baseline Medications Administered Amoxicillin (Amoxicillin 500 Mg Cap) 500 mg PO TID [facility]; Protocol Stop: 02/14/25 08:59 Last Admin: 02/05/25 07:54 Dose: 500 mg Documented By: Admin: 02/04/25 20:42 Dose: 500 mg Documented By: Admin: 02/04/25 15:02 Dose: 500 mg Documented By: Admin: 02/04/25 09:45 Dose: 500 mg Documented By: JD Apixaban (Apixaban 5 Mg Tablet) 5 mg PO BID [place] Stop: 03/04/25 08:59 Last Admin: 02/05/25 07:53 Dose: 5 mg Documented By: Admin: 02/04/25 20:41 Dose: 5 mg Documented By: Admin: 02/04/25 09:46 Dose: 5 mg Documented By: Admin: 02/03/25 20:44 Dose: 5 mg Documented By: [id number] Admin: 02/03/25 09:10 Dose: 5 mg Documented By: Admin: 02/02/25 20:26 Dose: Not Given Documented By: [id number] Admin: 02/02/25 09:05 Dose: 5 mg Documented By: MARKIE Buspirone HCl (Buspirone 5 Mg Tab) 10 mg PO BID [place] Stop: 03/04/25 08:59 Last Admin: 02/05/25 07:54 Dose: 10 mg Documented By: Admin: 02/04/25 20:41 Dose: 10 mg Documented By: Admin: 02/04/25 09:46 Dose: 10 mg Documented By: Admin: 02/03/25 20:44 Dose: 10 mg Documented By: [id number] Admin: 02/03/25 08:16 Dose: 10 mg Documented By: Admin: 02/02/25 20:27 Dose: 10 mg Documented By: [id number] Admin: 02/02/25 09:05 Dose: 10 mg Documented By: MARKIE Escitalopram Oxalate (Escitalopram Oxalate 20 Mg Tab) 20 mg PO DAILY [place] Stop: 03/04/25 08:59 Last Admin: 02/05/25 07:53 Dose: 20 mg Documented By: Admin: 02/04/25 09:46 Dose: 20 mg Documented By: Admin: 02/02/25 20:27 Dose: 20 mg Documented By: [id number] Admin: 02/02/25 09:05 Dose: 20 mg Documented By: MARKIE Famotidine (Famotidine 20 Mg Tab) 20 mg PO BID [place] Stop: 03/04/25 08:59 Last Admin: 02/05/25 07:53 Dose: 20 mg Documented By: Admin: 02/04/25 20:40 Dose: 20 mg Documented By: Admin: 02/04/25 09:50 Dose: 20 mg Documented By: Admin: 02/03/25 20:45 Dose: 20 mg Documented By: [id number] Admin: 02/03/25 08:17 Dose: 20 mg Documented By: Admin: 02/02/25 20:27 Dose: 20 mg Documented By: [id number] Admin: 02/02/25 09:06 Dose: 20 mg Documented By: MARKIE Heparin Sodium (Porcine) (Heparin 100 Unit/Ml 5ml Flush) 5 ml FLUSH PRN PRN PRN Reason: Flush Stop: 03/05/25 05:42 Last Admin: 02/05/25 05:56 Dose: 5 ml Documented By: Admin: 02/04/25 10:15 Dose: 5 ml Documented By: Admin: 02/04/25 08:03 Dose: 5 ml Documented By: Admin: 02/04/25 07:44 Dose: 5 ml Documented By: Admin: 02/04/25 01:32 Dose: 5 ml Documented By: [id number] Admin: 02/03/25 22:08 Dose: 5 ml Documented By: Admin: 02/03/25 13:13 Dose: 5 ml Documented By: Admin: 02/03/25 06:03 Dose: 5 ml Documented By: [id number] Lactobacillus Acidophilus (Advanced Probiotic 625 Mg Capsule) 1,250 mg PO DAILY [place] Stop: 03/06/25 08:59 Last Admin: 02/05/25 07:54 Dose: 1,250 mg Documented By: Admin: 02/04/25 09:45 Dose: 1,250 mg Documented By: JD Lorazepam (Lorazepam 0.5 Mg Tab) 0.5 mg PO TID PRN PRN Reason: Anxiety Stop: 03/04/25 07:21 Last Admin: 02/04/25 23:45 Dose: 0.5 mg Documented By: DAMIEN Ondansetron HCl (Ondansetron Inj 2 Mg/Ml 2 Ml Vial) 4 mg IV Q6H PRN PRN Reason: Nausea Stop: 03/04/25 07:21 Last Admin: 02/05/25 08:03 Dose: 4 mg Documented By: Admin: 02/04/25 09:46 Dose: 4 mg Documented By: Admin: 02/03/25 03:27 Dose: 4 mg Documented By: [id number] Admin: 02/02/25 20:35 Dose: 4 mg Documented By: [id number] Polyethylene Glycol (Polyethylene (Miralax) 17 Gm Pack) 17 gm PO DAILY PRN PRN Reason: Constipation Stop: 03/04/25 07:21 Last Admin: 02/04/25 07:38 Dose: 17 gm Documented By: JD Pregabalin (Pregabalin 25 Mg Cap) 25 mg PO BID [facility] Stop: 03/07/25 09:29 Last Admin: 02/05/25 09:47 Dose: 25 mg Documented By: MERI Trimethoprim/Sulfamethoxazole (Sulfamethoxazole/Trimethoprim Ds 800/160mg Tab) 1 tab PO BID [facility] Stop: 02/12/25 08:59 Last Admin: 02/05/25 07:53 Dose: 1 tab Documented By: Admin: 02/04/25 20:42 Dose: 1 tab Documented By: JOSÉ MIGUELJ Admin: 02/04/25 09:45 Dose: 1 tab Documented By: Admin: 02/02/25 20:27 Dose: 1 tab Documented By: [id number] Admin: 02/02/25 09:05 Dose: 1 tab Documented By: MARKIE
[2025-02-05] MEDS: ACETAMINOPHEN 500 MG TAB PO SCH (15:05)
[2025-02-05] MEDS: DICLOFENAC SOD 1% GEL 100 GM TUBE EXT SCH (20:23)
[2025-02-06] MEDS: HYDROmorphone INJ 0.5 MG/0.5 ML SYR IV PRN (00:31)
[2025-02-06 06:27] LABS: Hematocrit (blood only) 26.6 % (37.0-47.0); Hemoglobin 8.2 g/dl (12.0-16.0); Mean Corpuscular Hemoglobin 25.0 pg (25.0-34.0); Mean Corpuscular Volume 81.1 fL (80.0-100.0); Platelet Count 270 K/uL (130-400); RDW Standard Deviation 50.9 fL (36.4-46.3); Red Blood Count 3.28 M/uL (4.20-5.40); White Blood Count 5.23 K/ul (4.8-10.8)
[2025-02-06 07:12] LABS: Alanine Aminotransferase 10.0 U/L (7-52); Albumin Globulin Ratio 1.2 (0.9-2); Albumin Level 3.4 gm/dl (3.4-5.0); Alkaline Phosphatase 110.0 U/L (34-104); Anion Gap 9.0 (3-11); Bilirubin,Total 0.3 mg/dl (0.2-1.0); Blood Urea Nitrogen 12.0 mg/dl (6-23); Calcium 9.0 mg/dl (8.6-10.3); Carbon Dioxide 27.0 mmol/L (21-32); Creatinine Clr Calc Pharmacy 142.4 ml/min; Globulin 2.9 gm/dl (2.5-4.0); Glucose 87.0 mg/dl (70-99(Fasting)); Magnesium 1.7 mg/dl (1.7-2.4); Total Protein 6.3 gm/dl (6.0-8.3)
[2025-02-06 07:13] LABS: Chloride 103.0 mmol/L (98-107); Potassium 3.7 mmol/L (3.5-5.1); Sodium 139.0 mmol/L (136-145)
[2025-02-06 08:07] VITALS: BP 130/90; PULSE 77; TEMP 98.2; O2SAT 93
[2025-02-06] MEDS: POLYETHYLENE (MIRALAX) 17 GM PACK PO SCH (09:08)
--- NOTE | 2025-02-06 16:06 | Discharge Summary ---
Discharge Summary Date of Service February 06, 2025 Principal Dx & Hospital Course #1 = Principal Diagnosis (1) Hydronephrosis of right kidney: Plan 44-year-old female with past medical history significant for metastatic colon adenocarcinoma mets to liver and peritoneum, perforated diverticulitis/adenocarcinoma status post colostomy, pulm embolism on Eliquis, C. difficile s/ p treatment, anxiety and depression, iron deficiency anemia presents with abdominal pain. #Stage IV Colon Adenocarcinoma #Cancer Related Pain #Hepatic abscess #S/p Colostomy 2/2 Perforated Diverticular Disease -Going on for last 3 weeks, deemed musculoskeletal by OP providers per pt. -mets in liver and peritoneum -Admitting CTAP w/ Moderate right-sided hydronephroureterosis, enhancing hepatic lesions, and other findings s/o post op status. -PCP prescribed MS Contin 30mg twice daily but patient has not gotten it yet, approved per nurse navigator. -patient with worsening overall pain today, appears to have neuropathic and nociceptive components Plan: -start lyrica 25mg bid for neuropathic pain -start dilaudid 3mg PO q3hrs with IV breakthrough ordered (breakthrough only) for nociceptive pain, stop morphine and oxycodone -start voltaren cream for hips -ID evaled, recs are bactrim ds and amox, f/u w/ pt's own ID on dc.will need repeat imaging to determine resolution. 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 Urine analysis negative for UTI. Uro on board: s/p right ureteral stent placement on 02/03/2025. Fu w/ uro on dc. History of PE -On Eliquis Anxiety and depression -Continue home medications Notes For Next Care Provider 44-year-old female with past medical history significant for metastatic colon adenocarcinoma mets to liver and peritoneum, perforated diverticulitis/adenocarcinoma status post colostomy, pulm embolism on Eliquis, C. difficile s/ p treatment, anxiety and depression, iron deficiency anemia presents with abdominal pain. Admitted to medicine with concern for sepsis. Found to have a hepatic absecess and cancer related pain. ID consulted, recommended PO abx until outpatient follow up and reimaging. Started on PO dilaudid and pregablin with improvement in symptoms. On 02/06/2025 patient medically stable for discharge. Of note, discussed case with outpatient pharmacy in regards to payment for pain medications, adjusted to best of my ability. To do: -Incidental Findings: right ovarian vein thrombosis, mild right pleural effusion, small liver masses [ ] f/u imaging in 2 weeks of liver abscess for resolution [ ] palliative care pain medication adjustment Medication Changes From Visit -see below Admission HPI Per Admitting Provider 44-year-old female with past medical history significant for metastatic colon adenocarcinoma mets to liver and peritoneum, perforated diverticulitis/adenocarcinoma status post colostomy, pulm embolism on Eliquis, C. difficile s/p treatment, anxiety and depression, iron deficiency anemia presents with abdominal pain. Patient has ongoing abdominal pain since last 3 weeks. Her cancer surgeon is at [facility]. She followed with [facility] [place]. She had couple of CAT scans in the last couple of weeks. First CAT scan with contrast was done 01/20/2025 which showed small hepatic abscess and she was placed on Bactrim. Repeat CAT scan was done January 26, 2025 without contrast which was not obvious with abscess but the lesions were smaller in size. There is plan to repeat CAT scan in the next few days. She also seems getting PT to come to help with back pain and to strengthen abdominal muscles. Saw PCP yesterday. PCP prescribed morphine sulfate ER 30 mg twice daily as oxycodone was not working. Patient's is working with her insurance to get the MS Contin approved. But because abdominal pain is not getting better she came to the ER today. The pain is associated with nausea. Patient states she has very poor appetite. Denies any chest pain or shortness of breath. No cough. No runny nose or sore throat. Micturating okay. Hemodynamics okay. Ambulating okay. Past medical history. As mentioned above Past surgical history. Gastric band revision laparoscopic. IVC filter. Partial removal of colon. Status post colostomy. . Social history. No smoking. No alcohol use. No drug use. Family history. Mother had lung disease. Paternal grandmother has dementia. Maternal grandfather had heart attack. Paternal grandfather heart attack. Discharge Exam Gen: A&O 3 NAD HEENT: NCAT, EOMI, not icteric. External ears normal. No rhinorrhea. Moist mucous membranes. Neck: Supple, full range of motion, no observable masses, No meningeal sign. Lungs: No Respiratory distress. CV: RRR, no edema. Abdomen: tenderness in RUQ, epigastric region, lower abdomen, bilateral hips to palpation MSK: No joint swelling, no redness. Skin: No rashes, petechiae, lesions. Normal color per patient. Neuro: Normal Gait, Grossly intact. Psych: Appropriate for situation. Updated Medication List Medication Instructions Recorded Confirmed Type apixaban 5 mg tablet (Eliquis) 5 mg PO BID 02/02/25 02/02/25 History buspirone 10 mg tablet 10 mg PO BID 02/02/25 02/02/25 History cyclobenzaprine 5 mg tablet 5 mg PO TID PRN Muscle Spasm 02/02/25 02/02/25 History escitalopram oxalate 20 mg tablet 20 mg PO DAILY 02/02/25 02/02/25 History famotidine 20 mg tablet 20 mg PO BID 02/02/25 02/02/25 History lorazepam 0.5 mg tablet 0.5 mg PO TID PRN Anxiety 02/02/25 02/02/25 History ondansetron HCl 4 mg tablet 4 mg PO TID PRN Nausea And Vomiting 02/02/25 02/02/25 History sulfamethoxazole 800 1 tab PO BID 02/02/25 02/02/25 History mg-trimethoprim 160 mg tablet amoxicillin 500 mg capsule 500 mg PO TID 14 days #42 caps 02/06/25 Rx diclofenac sodium 1 % topical gel 4 g EXT Q12 14 days #100 grams 02/06/25 Rx (Voltaren Arthritis Pain) hydromorphone 2 mg tablet 3 mg (1.5 x 2 mg) PO Q3HWA PRN 02/06/25 Rx (Dilaudid) pain 14 days #84 tabs pregabalin 50 mg capsule 50 mg PO BID #30 caps 02/06/25 Rx Hospital Stay Data Consultations 02/02/25 05:20 ED Decision to Admit Stat 02/02/25 09:04 Consult Urology Routine 02/03/25 08:09 Consult Infectious Diseases Routine Procedures Performed Operation Date: 02/03/25 10:30 Actual Procedures p Cystoscopy Right Retrograde Pyelogram, Ureteroscopy, Right Ureteral Stent Insertion(Right) - Sheldon Norton MD Diagnostic Imagining Performed 02/02/25 02:42 CT abd pelvis IV con only Stat CT angio chest PE protocol Stat 02/03/25 FL retrograde includes kub Routine Pending Results Patient Have Any Pending Studies at Discharge: No Discharge Instructions Given to Patient (Per Discharging Provider) Diagnosis: cancer related pain, hepatic abscess, stage IV colon adenocarcinoma, hydronephrosis Follow Ups: PCP, oncologist Incidental Findings: right ovarian vein thrombosis, mild right pleural effusion, small liver masses 1. Please follow up with PCP, oncology, palliative care. 2. Please finish abx as prescribed. 3. Stay hydrated! Total Time Total Time Spent Total Time Spent (In Minutes): I spent a total of 35 minutes in direct patient care, including [id number] time with the patient and/or family, reviewing medical records, ordering and reviewing diagnostic tests, and coordinating care with other healthcare providers. This time includes: history taking, physical examination, medical decision making, counseling, ECG interpretation, imaging interpretation, lab interpretation, orders, and education, excluding time spent in the performance of separately billed services.
== END 2025-02-06 14:16 | disposition home or self-care (01) | DRG 659 ==
LOC: ED 02:32 → INTOOBSV 06:06 → SUATTDRO 06:06 → EDINP 06:06 → 3E 16:15

== ENCOUNTER 2025-02-26 23:02 | Inpatient (IN) ==
[2025-02-26] MEDS: OPTIRAY 320 100ml IV ONE (23:22)
[2025-02-26 23:25] LABS: Hematocrit (blood only) 30.2 % (37.0-47.0); Hemoglobin 9.1 g/dL (12.0-16.0); Immature Granulocytes # (auto) 0.03 K/uL (0.01-0.20); Immature Granulocytes % (auto) 0.4 %; Mean Corpuscular Hemoglobin 24.4 pg (25.0-34.0); Mean Corpuscular Volume 81.0 fL (80.0-100.0); Platelet Count 315 K/uL (130-400); RDW Standard Deviation 52.0 fL (36.4-46.3); Red Blood Count 3.73 M/uL (4.20-5.40); White Blood Count 8.30 K/ul (4.8-10.8)
--- NOTE | 2025-02-26 23:31 | Emergency Department Note ---
Impression & Plan Nausea & vomiting Admission ED Provider Note HPI: History obtained from patient. The patient is a 44-year-old female with history of adenocarcinoma of the colon, status post ileostomy, history of recurrent partial small bowel obstruction, chronic pain related to cancer, presents the emergency department with a chief complaint of generalized abdominal discomfort as well as nausea and vomiting that she states has been ongoing for about the past 3 weeks. Patient states she has been having difficulty tolerating any type of solid food and can only tolerate small liquids. On arrival here to the ER the patient is hemodynamically stable. ROS: - Per HPI Differential Diagnosis: Small bowel obstruction, metastatic disease within the abdomen/pelvis, ileus, lower GI bleed, pancreatitis, gastritis, gastroparesis, gastric outlet syndrome, amongst other potential pathologies. *Outpatient medications and allergy history reviewed. PE: General: Alert HEENT: Normocephalic, trachea midline Eyes: Extraocular eye movement is intact, no scleral erythema Pulmonary: Clear to auscultation bilaterally, no wheezing Cardio: Regular rate and rhythm GI: Abdomen is soft to palpation, moderate tenderness in the abdomen diffusely with palpation, ileostomy in place with drainage noted : No suprapubic tenderness MSK: No evidence of trauma or malformation of the extremities, no edema Skin: No evidence of rash Neuro: Alert, no focal deficits Psychiatric: Cooperative INDEPENDENT INTERPRETATIONS: cardiac monitor: (As interpreted by myself): - An order was placed for continuous cardiac monitoring - Patient was noted to be in sinus rhythm with a rate of 90 Interventions provided in ED: - IV fluids, Dilaudid, IV Zofran Medical Decision Making: IV was established and lab work obtained, patient was placed on quality assurance monitor. Lab work shows no leukocytosis, hemoglobin is 9.1 which appears to be stable in comparison to the patient's previous lab work, platelet count is normal, CMP shows a mild hypokalemia at 3.1 which was ordered for IV repletion. Lactic acid is within normal limits, urinalysis shows 4+ ketones as well as 1+ leukocyte esterase and some pyuria, will send for culture. Will hold off on antibiotics at this time as the patient does not have any complaint of dysuria, fever, and has no leukocytosis. CT imaging of the abdomen pelvis was obtained, this shows multiple chronic appearing and stable appearing findings but no evidence of any small bowel obstruction or acute surgical pathology. On reevaluation the patient states her pain is improved from previous but she is not comfortable with discharge home because of her intractable nausea and vomiting. She feels she needs to be admitted for further pain control and IV fluid resuscitation. I therefore discussed the patient's presentation with the on-call hospitalist, Dr. Mcgill, and the patient was placed for admission in stable condition. Consultants/Discussions held with other healthcare providers: - Hospitalist, Dr. Mcgill Disposition discussion held by myself with: - Patient Diagnosis: 1. Intractable nausea and vomiting, acute 2. History of colon cancer 3. Ketonuria, acute Disposition: Admission Andre Beck DO Emergency Medicine Past Med/Surg History Problem List (Updated 02/24/25 @ 20:51 by Rafy Fagan) Nausea & vomiting (Acute) Hypokalemia (Acute) Status post placement of ureteral stent (Acute) Pyelonephritis of left kidney (Acute) Palliative care by specialist Elevated lipase (Acute) Nausea & vomiting (Acute) Abdominal pain (Acute) Partial small bowel obstruction (Acute) Cancer related pain Abscess, hepatic Right flank pain Hydronephrosis of right kidney History of cancer (Acute) Intractable abdominal pain (Acute) Partial small bowel obstruction (Acute) Pulmonary embolism (Acute) 02/16/24- on Eliquis Status post exploratory laparotomy Adenocarcinoma, colon (Acute) Panic attack due to exceptional stress Adjustment disorder with anxious mood Anemia (Acute) Gastric bypass status for obesity Medical History Nausea & vomiting Small bowel obstruction Peritonitis Abdominal pain Acute diverticulitis History of Clostridium difficile infection diagnosed 02/09/24 while admitted in hospital - treated with Vancomycin until 02/27/24 Colostomy present done 02/04/24 stoma revised 02/06/24 with an additional 4.5cm of the colon removed History of diverticulitis history of multiple flares over the past year Hx of deep venous thrombosis (2010) - s/p childbirth in 2010- was on blood thinner for short time - no DVT noted with PE on 02/16/24 Hx of migraines History of panic attacks History of pulmonary embolism dx 02/16/24 at [facility]>started on Eliquis provoked by malignancy and surgical intervention per records dopplers negative for DVT Adenocarcinoma of colon dx'ed 01/2024 Perforated sigmoid colon - 02/03/24 due to enlarging mass (adenocarcinoma of the colon) - 02/04/24 underwent partial left colon resection and end colostomy Depression with anxiety Surgical History Port-A-Cath in place (03/13/24) Insertion of Access Port with Fluoroscopy into Right Internal Jugular Vein(Right) - Elizabeth Velasquez DO [place] teeth removed H/O abdominal surgery (02/05/24) Exploratory Laparoscopy Revision of Colostomy and Stoma(Not Applicable) - Elizabeth Velasquez DO History of x 2 H/O gastric sleeve (2021) History of colon resection (02/04/24) p Diagnostic Laparoscopy, with a laparoscopic colon resection, Abdominal Wash Out, Creation Colostomy(Not Applicable) - Elizabeth Velasquez DO Extensive lysis of adhesions Family History Other No family history of adverse response to anesthesia Social History Smoking Status: Never smoker Second Hand Exposure: No; Do You Dip or Chew Tobacco: No; Hx Alcohol Use: No Hx Substance Use: No Preferred Language: Romanian Communication Ability: Effective Visual Impairment: No Limitations Propagation Worker Required: No Beliefs That Will Affect Care: None Current Living Situation: Spouse Current Living Situation Comment: Home Feels Safe at Home: Yes Assistive Devices: None Allergies Allergies Allergy/AdvReac Type Severity Reaction Status Date / Time oxaliplatin Allergy Intermediate "HOT & Verified 02/27/25 00:23 ITCHY" IMMEDIATELY vancomycin Allergy Intermediate "HOT & Verified 02/27/25 00:23 ITCHY" IMMEDIATELY Home Meds Home Medications Medication Instructions Recorded Confirmed apixaban 5 mg tablet (Eliquis) 5 mg PO BID 02/02/25 02/27/25 buspirone 10 mg tablet 10 mg PO BID 02/02/25 02/27/25 escitalopram oxalate 20 mg tablet 20 mg PO DAILY 02/02/25 02/27/25 famotidine 20 mg tablet 20 mg PO BID 02/02/25 02/27/25 lorazepam 0.5 mg tablet 0.5 mg PO TID PRN Anxiety 02/02/25 02/27/25 ondansetron 8 mg disintegrating 8 mg PO Q8H PRN Nausea 02/24/25 02/27/25 tablet methocarbamol 500 mg tablet 1,000 mg PO QID PRN NEEDED PER 02/27/25 02/27/25 PT Previous Rx's Medication Instructions Recorded pregabalin 50 mg capsule 50 mg PO BID #30 caps 02/06/25 hydromorphone 4 mg tablet 4 mg PO Q4H PRN severe cancer pain 02/18/25 (Dilaudid) 1 month #180 tabs Results & Data (ED) Vital Signs Vital Signs - 24 hr 02/26/25 23:17 02/26/25 23:23 02/27/25 00:00 Temperature 37.4 C Temperature Source Oral Pulse Rate 89 90 Pulse Rate [Finger] 79 Pulse Rhythm Regular Pulse Strength Normal Respiratory Rate 18 20 Respiratory Effort / Characteristics Non-Labored Respiratory Depth Normal Respiratory Pattern Regular Blood Pressure 155/99 H Blood Pressure [Right Arm] 135/88 Blood Pressure Mean 117 Blood Pressure Mean [Right Arm] 103 Blood Pressure Position Semi-fowlers Pulse Oximetry 98 99 Oxygen Delivery Method Room Air Sepsis Recent Fever Within 48 Hours No Sepsis New/Unexplained Change in Mental Status No Sepsis Action Taken by Nursing No Action Required 02/27/25 01:21 Temperature Temperature Source Pulse Rate Pulse Rate [Finger] 85 Pulse Rhythm Pulse Strength Respiratory Rate 20 Respiratory Effort / Characteristics Respiratory Depth Respiratory Pattern Blood Pressure Blood Pressure [Right Arm] 145/96 H Blood Pressure Mean Blood Pressure Mean [Right Arm] 112 Blood Pressure Position Pulse Oximetry 97 Oxygen Delivery Method Room Air Sepsis Recent Fever Within 48 Hours Sepsis New/Unexplained Change in Mental Status Sepsis Action Taken by Nursing Laboratory Data 02/26/25 23:13 02/26/25 23:13 Lab Results 02/26/25 02/27/25 02/27/25 Range/Units 23:13 00:10 01:00 WBC 8.30 (4.8-10.8) K/ul RBC 3.73 L (4.20-5.40) M/uL Hgb 9.1 L (12.0-16.0) g/dL Hct 30.2 L (37.0-47.0) % MCV 81.0 (80.0-100.0) fL MCH 24.4 L (25.0-34.0) pg MCHC 30.1 L (32.0-36.0) g/dL RDW Std Deviation 52.0 H (36.4-46.3) fL RDW Coeff of Mita 17.5 H (11.5-14.5) % Plt Count 315 (130-400) K/uL MPV 9.4 (9.4-12.4) fL Immature Gran % (Auto) 0.4 % Neut % (Auto) 78.7 % Lymph % (Auto) 10.0 % [place] % (Auto) 8.1 % Eos % (Auto) 2.3 % Baso % (Auto) 0.5 % Neut # (Auto) 6.54 H (1.40-6.50) K/uL Lymph # (Auto) 0.83 L (1.20-3.40) K/uL [place] # (Auto) 0.67 H (0.11-0.59) K/uL Eos # (Auto) 0.19 (0.00-0.50) K/uL Baso # (Auto) 0.04 (0.00-0.20) K/uL Immature Gran # (Auto) 0.03 (0.01-0.20) K/uL PT 15.3 H (9.0-12.0) Seconds INR 1.5 H (0.9-1.1) Sodium 141 (136-145) mmol/L Potassium 3.1 L (3.5-5.1) mmol/L Chloride 101 (98-107) mmol/L Carbon Dioxide 22 (21-32) mmol/L Anion Gap 18 H (3-11) BUN 10 (6-23) mg/dl Creatinine 0.69 (0.6-1.2) mg/dl Est Cr Clr Drug Dosing 99.6 ml/min eGFR 110.36 BUN/Creatinine Ratio 14.5 (10-20) Glucose 80 (70-99(Fasting)) mg/dl Lactate 1.1 (0.4-2.0) mmol/L Calcium 8.5 L (8.6-10.3) mg/dl Total Bilirubin 0.4 (0.2-1.0) mg/dl AST 23 (13-39) U/L ALT 19 (7-52) U/L Alkaline Phosphatase 199 H (34-104) U/L Total Protein 6.3 (6.0-8.3) gm/dl Albumin 3.4 (3.4-5.0) gm/dl Globulin 2.9 (2.5-4.0) gm/dl Albumin/Globulin Ratio 1.2 (0.9-2) Lipase 39 (11-82) U/L Urine Color Red Urine Appearance Cloudy A (Clear) Urine pH 6.0 (4.5-7.5) Ur Specific [place] 1.025 (1.000-1.030) Urine Protein 3+ H (Negative) Urine Glucose (UA) Negative (Negative) Urine Ketones 4+ H (Negative) Urine Blood 3+ H (Negative) Urine Nitrite Negative (Negative) Urine Bilirubin Negative (Negative) Urine Urobilinogen Negative (Negative) Ur Leukocyte Esterase 1+ H (Negative) Urine RBC >20 H (0-2) /hpf Urine WBC >50 H (0-5) /hpf Ur Epithelial Cells 0-2 (0-2) /hpf Urine Bacteria None Seen (None Seen) Urine Yeast Present A (None Prsent) Urine Comment Administered Medications Discontinued Medications Hydromorphone HCl (Hydromorphone Inj 1 Mg/Ml Syringe) 1 mg IV NOW STA Stop: 02/26/25 23:20 Last Admin: 02/26/25 23:36 Dose: 1 mg Documented By: CHELY Hydromorphone HCl (Hydromorphone Inj 1 Mg/Ml Syringe) 1 mg IV NOW STA Stop: 02/27/25 00:46 Last Admin: 02/27/25 00:58 Dose: 1 mg Documented By: CHELY Sodium Chloride (Nss) 1,000 mls @ 999 mls/hr IV .Q1H1M STA Stop: 02/27/25 00:13 Last Infusion: 02/27/25 01:11 Dose: Infused Documented By: Admin: 02/26/25 23:36 Dose: 999 mls/hr Documented By: CHELY Sodium Chloride (Nss) 1,000 mls @ 999 mls/hr IV .Q1H1M ONE Stop: 02/27/25 02:33 Last Admin: 02/27/25 01:48 Dose: 999 mls/hr Documented By: CHELY Ioversol (Optiray 320 100ml) 94 ml IV ONCE ONE Stop: 02/26/25 23:23 Last Admin: 02/26/25 23:22 Dose: 94 ml Documented By: KRISTA Ondansetron HCl (Ondansetron Inj 2 Mg/Ml 2 Ml Vial) 4 mg IV NOW STA Stop: 02/26/25 23:20 Last Admin: 02/26/25 23:36 Dose: 4 mg Documented By: [facility] Imaging Data Radiologist's Impression: Abdomen/Pelvis CT 02/26/25 23:19 EXAM: CT abd pelvis IV con only CLINICAL HISTORY: N/V, generalized abd pain TECHNIQUE: Contiguous axial images were obtained from the level of the diaphragm to the pubic symphysis with intravenous contrast. Coronal and sagittal reconstructions were likewise performed and indicated to increase the sensitivity for detecting clinically relevant pathology. If IV contrast material had not been administered, the likelihood of detecting abnormalities relevant to the patient's condition would have been substantially decreased. CT scan was performed according to ALARA (as low as reasonably achievable). COMPARISON: 18:10:00 COMMIS CHEF. FINDINGS: Mild right and minimal left pleural effusion with basal subsegmental collapse of both lower lobes are seen. The liver appears enlarged in size and shows multiple ill-defined hypodense lesions are noted in both lobes - largest measures about 32 x 30 mm.- possibility of neoplastic etiology/metastasis likely. There is no intra or extrahepatic biliary ductal dilatation. Hepatic vasculature is patent. The gallbladder is present. The spleen, pancreas, and adrenal glands are unremarkable. The kidneys are normal in size and attenuation. DJ stent seen in-situ on right side. Mild left sided hydronephroureterosis The ureters are normal in caliber and no ureteral calculi are seen. The bladder is normal in contour. Pelvic viscera are unremarkable. No focal or diffuse bowel wall thickening or evidence of bowel obstruction is identified. No imaging evidence of appendicitis. Abdominal and pelvic vasculature is patent. No adenopathy or fluid collections are seen. No aggressive appearing osseous lesions are identified. Right lower quadrant ileostomy /colostomy status. Focal ill-defined mesenteric fat stranding/thickening is noted involving right lower quadrant- sequelae of prior inflammatory changes likely. Mild adjacent clumped bowel loops are also seen. Fluid filled mildly dilated jejunal loops are noted involving left upper quadrant with diameter measures up to 5 cm. However, no obvious bowel obstruction seen. 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 Mild right and minimal left pleural effusion with basal subsegmental collapse of both lower lobes are seen.-reduced 2. Hepatomegaly with multiple hepatic lesion as described - possibility of neoplastic etiology/metastasis likely.--stable. 3. Right lower quadrant ileostomy /colostomy status.-stable. 4. Focal ill-defined mesenteric fat stranding/thickening is noted involving right lower quadrant- sequelae of prior inflammatory changes likely. Mild adjacent clumped bowel loops are also seen.- post oral contrast evaluation is suggested.-stable. 5. Fluid filled mildly dilated jejunal loops are noted involving left upper quadrant with diameter measures up to 5 cm. However, no obvious bowel obstruction seen.-stable. 6. 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 7. DJ stent seen in-situ on right side.-stable. 8. Mild left sided hydronephroureterosis.-stable. 9. Mild ascites noted in perisplenic space-stable. 10. No other new interval abnormality since prior study. Electronically signed by Sudeep Dunlap 02-27-2025 01:45 AM Discharge Plan Visit Data Chief Complaint: Abdominal Pain Stated Complaint: ABDOMINAL PAIN, VOMITING ED Provider: Andre Beck Discharge Problem: Nausea & vomiting Patient Disposition: Admitted As Inpatient Condition: Fair Forms Stand Alone Forms: [facility] Prescriptions Prescriptions: No Action hydromorphone [Dilaudid] 4 mg tablet 4 mg PO Q4H PRN (Reason: severe cancer pain) 30 Days Qty: 180 0RF famotidine 20 mg tablet 20 mg PO BID lorazepam 0.5 mg tablet 0.5 mg PO TID PRN (Reason: Anxiety) buspirone 10 mg tablet 10 mg PO BID escitalopram oxalate 20 mg tablet 20 mg PO DAILY Eliquis 5 mg tablet 5 mg PO BID pregabalin 50 mg capsule 50 mg PO BID Qty: 30 0RF ondansetron 8 mg tablet,disintegrating 8 mg PO Q8H PRN (Reason: Nausea) methocarbamol [Robaxin] 500 mg Tablet 1,000 mg PO QID PRN (Reason: NEEDED PER PT) Referrals Referrals: Annie Ch DO [Primary Care Provider] - Discharge Problem: Nausea & vomiting Qualifiers: Vomiting type: unspecified Qualified Code(s): R11.2 - Nausea with vomiting, unspecified
[2025-02-26] MEDS: ONDANSETRON INJ 2 MG/ML 2 ML VIAL IV STA (23:36)
[2025-02-26] MEDS: HYDROmorphone INJ 1 MG/ML SYRINGE IV STA (23:36)
[2025-02-26] MEDS: SODIUM CHLORIDE 0.9% 1,000 ML IV STA (23:36)
[2025-02-26 23:44] LABS: Alanine Aminotransferase 19.0 U/L (7-52); Albumin Globulin Ratio 1.2 (0.9-2); Albumin Level 3.4 gm/dl (3.4-5.0); Alkaline Phosphatase 199.0 U/L (34-104); Anion Gap 18.0 (3-11); Bilirubin,Total 0.4 mg/dl (0.2-1.0); Blood Urea Nitrogen 10.0 mg/dl (6-23); Calcium 8.5 mg/dl (8.6-10.3); Carbon Dioxide 22.0 mmol/L (21-32); Chloride 101.0 mmol/L (98-107); Creatinine Clr Calc Pharmacy 99.6 ml/min; Globulin 2.9 gm/dl (2.5-4.0); Glucose 80.0 mg/dl (70-99(Fasting)); Lipase 39.0 U/L (11-82); Potassium 3.1 mmol/L (3.5-5.1); Sodium 141.0 mmol/L (136-145); Total Protein 6.3 gm/dl (6.0-8.3)
[2025-02-26 23:53] LABS: INR 1.5 (0.9-1.1); Prothrombin Time 15.3 Seconds (9.0-12.0)
[2025-02-27] MEDS: HYDROmorphone INJ 1 MG/ML SYRINGE IV STA (00:58)
[2025-02-27 01:15] LABS: Appearance Urine Cloudy (Clear); Glucose Urine UA Negative (Negative)
--- NOTE | 2025-02-27 01:46 | CT Scan Report ---
EXAM: CT abd pelvis IV con only CLINICAL HISTORY: N/V, generalized abd pain TECHNIQUE: Contiguous axial images were obtained from the level of the diaphragm to the pubic symphysis with intravenous contrast. Coronal and sagittal reconstructions were likewise performed and indicated to increase the sensitivity for detecting clinically relevant pathology. If IV contrast material had not been administered, the likelihood of detecting abnormalities relevant to the patient's condition would have been substantially decreased. CT scan was performed according to ALARA (as low as reasonably achievable). COMPARISON: 18:10:00 PERSONNEL GENERALIST MANAGER. FINDINGS: Mild right and minimal left pleural effusion with basal subsegmental collapse of both lower lobes are seen. The liver appears enlarged in size and shows multiple ill-defined hypodense lesions are noted in both lobes - largest measures about 32 x 30 mm.- possibility of neoplastic etiology/metastasis likely. There is no intra or extrahepatic biliary ductal dilatation. Hepatic vasculature is patent. The gallbladder is present. The spleen, pancreas, and adrenal glands are unremarkable. The kidneys are normal in size and attenuation. DJ stent seen in-situ on right side. Mild left sided hydronephroureterosis The ureters are normal in caliber and no ureteral calculi are seen. The bladder is normal in contour. Pelvic viscera are unremarkable. No focal or diffuse bowel wall thickening or evidence of bowel obstruction is identified. No imaging evidence of appendicitis. Abdominal and pelvic vasculature is patent. No adenopathy or fluid collections are seen. No aggressive appearing osseous lesions are identified. Right lower quadrant ileostomy /colostomy status. Focal ill-defined mesenteric fat stranding/thickening is noted involving right lower quadrant- sequelae of prior inflammatory changes likely. Mild adjacent clumped bowel loops are also seen. Fluid filled mildly dilated jejunal loops are noted involving left upper quadrant with diameter measures up to 5 cm. However, no obvious bowel obstruction seen. 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 Mild right and minimal left pleural effusion with basal subsegmental collapse of both lower lobes are seen.-reduced 2. Hepatomegaly with multiple hepatic lesion as described - possibility of neoplastic etiology/metastasis likely.--stable. 3. Right lower quadrant ileostomy /colostomy status.-stable. 4. Focal ill-defined mesenteric fat stranding/thickening is noted involving right lower quadrant- sequelae of prior inflammatory changes likely. Mild adjacent clumped bowel loops are also seen.- post oral contrast evaluation is suggested.-stable. 5. Fluid filled mildly dilated jejunal loops are noted involving left upper quadrant with diameter measures up to 5 cm. However, no obvious bowel obstruction seen.-stable. 6. 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 7. DJ stent seen in-situ on right side.-stable. 8. Mild left sided hydronephroureterosis.-stable. 9. Mild ascites noted in perisplenic space-stable. 10. No other new interval abnormality since prior study. Electronically signed by Sudeep Dunlap 02-27-2025 01:45 AM
[2025-02-27] MEDS: SODIUM CHLORIDE 0.9% 1,000 ML IV ONE (01:48)
[2025-02-27 02:01] LABS: Epithelial Cell Urine 0-2 /hpf (0-2)
[2025-02-27] MEDS: POTASSIUM CHLORIDE 40 MEQ in SODIUM CHLORIDE 0.9% 1,000 ML IV SCH (02:47)
[2025-02-27] MEDS: HYDROmorphone INJ 0.5 MG/0.5 ML SYR IV STA (03:17)
[2025-02-27] MEDS: MoRPHine SULFATE 4 MG/ML 1 ML CARP\\VIAL IV STA (04:47)
[2025-02-27] MEDS ORDERED: MoRPHine SULFATE 2 MG/ML CARP IV PRN (05:00)
[2025-02-27] MEDS ORDERED: MoRPHine SULFATE 4 MG/ML 1 ML CARP\\VIAL IV PRN (05:00)
--- NOTE | 2025-02-27 05:01 | History & Physical Report ---
Date of Service February 27, 2025 Assessment & Plan (1) Abdominal pain: Plan: 44-year-old female with past medical history significant for metastatic colon adenocarcinoma mets to liver and peritoneum, perforated diverticulitis/adenocarcinoma status post colostomy, pulm embolism on Eliquis, C. difficile s/p treatment, anxiety and depression, iron deficiency anemia presents with abdominal pain.Patient is having ongoing pain for several weeks now. This is her third admission since last 1 month. Patient is status post right ureteral stent on and supposed to follow-up outpatient for stent removal. She was on Bactrim and amoxicillin for postop hepatic abscess, says no longer on antibiotics. She was again admitted 06 of February for small bowel obstruction and was discharged on 02/08/2025. Patient is followed with palliative care. Currently on p.o. Dilaudid 4 mg every 3 hours as needed for pain. Patient says Dilaudid is causing her nauseous. States abdominal pain is not getting better. She is having a lot of nausea and vomiting. She says not eating because of nausea. Today evening she had a fever. She is having blood in the urine. Somewhat constipated. Denies any chest pain or shortness of breath. No headache. No runny nose or sore throat. Hemodynamics are okay. Patient states wants to try morphine for pain instead of Dilaudid. Abdominal pain Ongoing Nausea and vomiting ongoing CT scan shows multiple chronic stable findings Pain control with IV morphine as needed Can consider pain management/palliative care consult Acute UTI Hematuria Recent status post right ureteral stent History of E. coli ESBL Starting on Invanz Urology consult Will follow the cultures Metastatic adenocarcinoma of colon Mets to liver and peritoneum Perforated diverticulitis Status post colostomy Follows with [facility] History of PE On Eliquis Anxiety and depression On Lexapro, BuSpar and Ativan as needed GERD On famotidine DVT prophylaxis On Eliquis Disposition Medical floor Full code. History of Present Illness Chief Complaint: Abdominal pain Primary Care Provider: Annie Ch DO 44-year-old female with past medical history significant for metastatic colon adenocarcinoma mets to liver and peritoneum, perforated diverticulitis/adenocarcinoma status post colostomy, pulm embolism on Eliquis, C. difficile s/p treatment, anxiety and depression, iron deficiency anemia presents with abdominal pain.Patient is having ongoing pain for several weeks now. This is her third admission since last 1 month. Patient is status post right ureteral stent on and supposed to follow-up outpatient for stent removal. She was on Bactrim and amoxicillin for postop hepatic abscess, says no longer on antibiotics. She was again admitted 06 of February for small bowel obstruction and was discharged on 02/08/2025. Patient is followed with palliative care. Currently on p.o. Dilaudid 4 mg every 3 hours as needed for pain. Patient says Dilaudid is causing her nauseous. States abdominal pain is not getting better. She is having a lot of nausea and vomiting. She says not eating because of nausea. Today evening she had a fever. She is having blood in the urine. Somewhat constipated. Denies any chest pain or shortness of breath. No headache. No runny nose or sore throat. Hemodynamics are okay. Patient states wants to try morphine for pain instead of Dilaudid. Past medical history. As mentioned above Past surgical history. Gastric band revision laparoscopic. IVC filter. Partial removal of colon. Status post colostomy. . Ureteral stent placement. Social history. No smoking. No alcohol use. No drug use. Family history. Mother had lung disease. Paternal grandmother has dementia. Maternal grandfather had heart attack. Paternal grandfather heart attack. Allergies Allergy/AdvReac Type Severity Reaction Status Date / Time oxaliplatin Allergy Intermediate "HOT & Verified 02/27/25 00:23 ITCHY" IMMEDIATELY vancomycin Allergy Intermediate "HOT & Verified 02/27/25 00:23 ITCHY" IMMEDIATELY Home Medications Medication Instructions Recorded Confirmed Type apixaban 5 mg tablet (Eliquis) 5 mg PO BID 02/02/25 02/27/25 History buspirone 10 mg tablet 10 mg PO BID 02/02/25 02/27/25 History escitalopram oxalate 20 mg tablet 20 mg PO DAILY 02/02/25 02/27/25 History famotidine 20 mg tablet 20 mg PO BID 02/02/25 02/27/25 History lorazepam 0.5 mg tablet 0.5 mg PO TID PRN Anxiety 02/02/25 02/27/25 History pregabalin 50 mg capsule 50 mg PO BID #30 caps 02/06/25 02/27/25 Rx hydromorphone 4 mg tablet 4 mg PO Q4H PRN severe cancer pain 02/18/25 02/27/25 Rx (Dilaudid) 1 month #180 tabs ondansetron 8 mg disintegrating 8 mg PO Q8H PRN Nausea 02/24/25 02/27/25 History tablet methocarbamol 500 mg tablet 1,000 mg PO QID PRN NEEDED PER 02/27/25 02/27/25 History PT Past Med/Surg History Problem List (Updated 02/24/25 @ 20:51 by Rafy Fagan) Nausea & vomiting (Acute) Hypokalemia (Acute) Status post placement of ureteral stent (Acute) Pyelonephritis of left kidney (Acute) Palliative care by specialist Elevated lipase (Acute) Nausea & vomiting (Acute) Abdominal pain (Acute) Partial small bowel obstruction (Acute) Cancer related pain Abscess, hepatic Right flank pain Hydronephrosis of right kidney History of cancer (Acute) Intractable abdominal pain (Acute) Partial small bowel obstruction (Acute) Pulmonary embolism (Acute) 02/16/24- on Eliquis Status post exploratory laparotomy Adenocarcinoma, colon (Acute) Panic attack due to exceptional stress Adjustment disorder with anxious mood Anemia (Acute) Gastric bypass status for obesity Medical History Nausea & vomiting Small bowel obstruction Peritonitis Abdominal pain Acute diverticulitis History of Clostridium difficile infection diagnosed 02/09/24 while admitted in hospital - treated with Vancomycin until 02/27/24 Colostomy present done 02/04/24 stoma revised 02/06/24 with an additional 4.5cm of the colon removed History of diverticulitis history of multiple flares over the past year Hx of deep venous thrombosis (2010) - s/p childbirth in 2010- was on blood thinner for short time - no DVT noted with PE on 02/16/24 Hx of migraines History of panic attacks History of pulmonary embolism dx 02/16/24 at [place]>started on Eliquis provoked by malignancy and surgical intervention per records dopplers negative for DVT Adenocarcinoma of colon dx'ed 01/2024 Perforated sigmoid colon - 02/03/24 due to enlarging mass (adenocarcinoma of the colon) - 02/04/24 underwent partial left colon resection and end colostomy Depression with anxiety Surgical History Port-A-Cath in place (03/13/24) Insertion of Access Port with Fluoroscopy into Right Internal Jugular Vein(Right) - Elizabeth Velasquez DO [place] teeth removed H/O abdominal surgery (02/05/24) Exploratory Laparoscopy Revision of Colostomy and Stoma(Not Applicable) - Elizabeth Velasquez DO History of x 2 H/O gastric sleeve (2021) History of colon resection (02/04/24) p Diagnostic Laparoscopy, with a laparoscopic colon resection, Abdominal Wash Out, Creation Colostomy(Not Applicable) - Elizabeth Velasquez DO Extensive lysis of adhesions Family History Other No family history of adverse response to anesthesia Social History Smoking Status: Never smoker Second Hand Exposure: No; Do You Dip or Chew Tobacco: No; Hx Alcohol Use: No Hx Substance Use: No Preferred Language: British Communication Ability: Effective Visual Impairment: No Limitations 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 ENT- oropharynx clear Neck- supple, no JVD. Lungs- clear to auscultation no wheezing or crackles Heart- regular rhythm; no murmur, no gallop. Abdomen- normal bowel sounds, soft, diffuse tender, no distension, colostomy bag seen Extremities- no pretibial edema, no erythema seen Neuro- alert, oriented PERRL, no facial palsy; no dysarthria; moves extremities Results & Data Results & Data Vital Signs (Past 12 Hours) Vital Signs Temp Pulse Pulse Resp BP BP Pulse Ox 02/27/25 04:31 83 18 138/92 97 02/27/25 03:04 86 02/27/25 03:00 88 20 147/92 H 97 02/27/25 01:21 85 20 145/96 H 97 02/27/25 00:00 79 20 135/88 99 02/26/25 23:23 37.4 C 90 18 155/99 H 98 02/26/25 23:17 89 O2 Del Method 02/27/25 04:31 Room Air 02/27/25 03:04 02/27/25 03:00 Room Air 02/27/25 01:21 Room Air 02/27/25 00:00 02/26/25 23:23 Room Air 02/26/25 23:17 Diagnostic Findings Laboratory Results WBC 8.30 K/ul (4.8-10.8) 02/26/25 23:13 RBC 3.73 M/uL (4.20-5.40) L 02/26/25 23:13 Hgb 9.1 g/dL (12.0-16.0) L 02/26/25 23:13 Hct 30.2 % (37.0-47.0) L 02/26/25 23:13 MCV 81.0 fL (80.0-100.0) 02/26/25 23:13 MCH 24.4 pg (25.0-34.0) L 02/26/25 23:13 MCHC 30.1 g/dL (32.0-36.0) L 02/26/25 23:13 RDW Std Deviation 52.0 fL (36.4-46.3) H 02/26/25 23:13 RDW Coeff of Mita 17.5 % (11.5-14.5) H 02/26/25 23:13 Plt Count 315 K/uL (130-400) 02/26/25 23:13 MPV 9.4 fL (9.4-12.4) 02/26/25 23:13 Immature Gran % (Auto) 0.4 % 02/26/25 23:13 Neut % (Auto) 78.7 % 02/26/25 23:13 Lymph % (Auto) 10.0 % 02/26/25 23:13 [place] % (Auto) 8.1 % 02/26/25 23:13 Eos % (Auto) 2.3 % 02/26/25 23:13 Baso % (Auto) 0.5 % 02/26/25 23:13 Neut # (Auto) 6.54 K/uL (1.40-6.50) H 02/26/25 23:13 Lymph # (Auto) 0.83 K/uL (1.20-3.40) L 02/26/25 23:13 [place] # (Auto) 0.67 K/uL (0.11-0.59) H 02/26/25 23:13 Eos # (Auto) 0.19 K/uL (0.00-0.50) 02/26/25 23:13 Baso # (Auto) 0.04 K/uL (0.00-0.20) 02/26/25 23:13 Immature Gran # (Auto) 0.03 K/uL (0.01-0.20) 02/26/25 23:13 PT 15.3 Seconds (9.0-12.0) H 02/26/25 23:13 INR 1.5 (0.9-1.1) H 02/26/25 23:13 Sodium 141 mmol/L (136-145) 02/26/25 23:13 Potassium 3.1 mmol/L (3.5-5.1) L 02/26/25 23:13 Chloride 101 mmol/L (98-107) 02/26/25 23:13 Carbon Dioxide 22 mmol/L (21-32) 02/26/25 23:13 Anion Gap 18 (3-11) H 02/26/25 23:13 BUN 10 mg/dl (6-23) 02/26/25 23:13 Creatinine 0.69 mg/dl (0.6-1.2) 02/26/25 23:13 Est Cr Clr Drug Dosing 99.6 ml/min 02/26/25 23:13 eGFR 110.36 02/26/25 23:13 BUN/Creatinine Ratio 14.5 (10-20) 02/26/25 23:13 Glucose 80 mg/dl (70-99(Fasting)) 02/26/25 23:13 Lactate 1.1 mmol/L (0.4-2.0) 02/27/25 00:10 Calcium 8.5 mg/dl (8.6-10.3) L 02/26/25 23:13 Total Bilirubin 0.4 mg/dl (0.2-1.0) 02/26/25 23:13 AST 23 U/L (13-39) 02/26/25 23:13 ALT 19 U/L (7-52) 02/26/25 23:13 Alkaline Phosphatase 199 U/L (34-104) H 02/26/25 23:13 Total Protein 6.3 gm/dl (6.0-8.3) 02/26/25 23:13 Albumin 3.4 gm/dl (3.4-5.0) 02/26/25 23:13 Globulin 2.9 gm/dl (2.5-4.0) 02/26/25 23:13 Albumin/Globulin Ratio 1.2 (0.9-2) 02/26/25 23:13 Lipase 39 U/L (11-82) 02/26/25 23:13 Urine Color Red 02/27/25 01:00 Urine Appearance Cloudy (Clear) A 02/27/25 01:00 Urine pH 6.0 (4.5-7.5) 02/27/25 01:00 Ur Specific [place] 1.025 (1.000-1.030) 02/27/25 01:00 Urine Protein 3+ (Negative) H 02/27/25 01:00 Urine Glucose (UA) Negative (Negative) 02/27/25 01:00 Urine Ketones 4+ (Negative) H 02/27/25 01:00 Urine Blood 3+ (Negative) H 02/27/25 01:00 Urine Nitrite Negative (Negative) 02/27/25 01:00 Urine Bilirubin Negative (Negative) 02/27/25 01:00 Urine Urobilinogen Negative (Negative) 02/27/25 01:00 Ur Leukocyte Esterase 1+ (Negative) H 02/27/25 01:00 Urine RBC >20 /hpf (0-2) H 02/27/25 01:00 Urine WBC >50 /hpf (0-5) H 02/27/25 01:00 Ur Epithelial Cells 0-2 /hpf (0-2) 02/27/25 01:00 Urine Bacteria None Seen (None Seen) 02/27/25 01:00 Urine Yeast Present (None Prsent) A 02/27/25 01:00 Urine Comment 02/27/25 01:00 Impressions Abdomen/Pelvis CT 02/26/25 23:19 EXAM: CT abd pelvis IV con only CLINICAL HISTORY: N/V, generalized abd pain TECHNIQUE: Contiguous axial images were obtained from the level of the diaphragm to the pubic symphysis with intravenous contrast. Coronal and sagittal reconstructions were likewise performed and indicated to increase the sensitivity for detecting clinically relevant pathology. If IV contrast material had not been administered, the likelihood of detecting abnormalities relevant to the patient's condition would have been substantially decreased. CT scan was performed according to ALARA (as low as reasonably achievable). 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 FINDINGS: Mild right and minimal left pleural effusion with basal subsegmental collapse of both lower lobes are seen. The liver appears enlarged in size and shows multiple ill-defined hypodense lesions are noted in both lobes - largest measures about 32 x 30 mm.- possibility of neoplastic etiology/metastasis likely. There is no intra or extrahepatic biliary ductal dilatation. Hepatic vasculature is patent. The gallbladder is present. The spleen, pancreas, and adrenal glands are unremarkable. The kidneys are normal in size and attenuation. DJ stent seen in-situ on right side. Mild left sided hydronephroureterosis The ureters are normal in caliber and no ureteral calculi are seen. The bladder is normal in contour. Pelvic viscera are unremarkable. No focal or diffuse bowel wall thickening or evidence of bowel obstruction is identified. No imaging evidence of appendicitis. Abdominal and pelvic vasculature is patent. No adenopathy or fluid collections are seen. No aggressive appearing osseous lesions are identified. Right lower quadrant ileostomy /colostomy status. Focal ill-defined mesenteric fat stranding/thickening is noted involving right lower quadrant- sequelae of prior inflammatory changes likely. Mild adjacent clumped bowel loops are also seen. Fluid filled mildly dilated jejunal loops are noted involving left upper quadrant with diameter measures up to 5 cm. However, no obvious bowel obstruction seen. 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 Mild right and minimal left pleural effusion with basal subsegmental collapse of both lower lobes are seen.-reduced 2. Hepatomegaly with multiple hepatic lesion as described - possibility of neoplastic etiology/metastasis likely.--stable. 3. Right lower quadrant ileostomy /colostomy status.-stable. 4. Focal ill-defined mesenteric fat stranding/thickening is noted involving right lower quadrant- sequelae of prior inflammatory changes likely. Mild adjacent clumped bowel loops are also seen.- post oral contrast evaluation is suggested.-stable. 5. Fluid filled mildly dilated jejunal loops are noted involving left upper quadrant with diameter measures up to 5 cm. However, no obvious bowel obstruction seen.-stable. 6. 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 7. DJ stent seen in-situ on right side.-stable. 8. Mild left sided hydronephroureterosis.-stable. 9. Mild ascites noted in perisplenic space-stable. 10. No other new interval abnormality since prior study. Electronically signed by Sudeep Dunlap 02-27-2025 01:45 AM Code Status & VTE Plan VTE Prophylaxis Plan VTE Prophylaxis will be ordered: Yes
[2025-02-27] MEDS: ERTAPENEM 1000MG 1,000 MG/10 ML SYR IV SCH (05:03)
[2025-02-27] MEDS: ACETAMINOPHEN 1,000 MG/100 ML VIAL IV PRN (06:00)
[2025-02-27] MEDS: ONDANSETRON INJ 2 MG/ML 2 ML VIAL IV PRN (06:32)
[2025-02-27] MEDS: D5W AND NSS 1,000 ML IV SCH (07:26)
[2025-02-27] MEDS: POTASSIUM CHLORIDE / WTR 10 MEQ/100 ML PLCT IV SCH (07:27)
[2025-02-27] MEDS: PROMETHAZINE 12.5 MG/50.5 ML BAG IV PRN (08:19)
[2025-02-27] MEDS ORDERED: HYDROmorphone INJ 0.5 MG/0.5 ML SYR IV PRN (08:46)
[2025-02-27] MEDS: HYDROmorphone INJ 1 MG/ML SYRINGE IV PRN (09:13)
--- NOTE | 2025-02-27 09:49 | Urology Consultation ---
Date of Consultation February 27, 2025 Assessment & Plan (1) Nausea & vomiting: (2) Cancer related pain: Plan Unfortunate 44-year-old female with advanced colon cancer She is tolerating the right ureteral stent very well She does seem to have had some progression of left-sided hydronephrosis and she is having pain which could truly be left renal colic It does not appear that she has been treated for Salma within the urine and she does not feel that she definitively has infection She has had blood but does not believe her urine has been overly murky I think would be most appropriate to treat her with a dose of Diflucan now Make her n.p.o. after midnight, if pain is not improved tomorrow, consider left ureteral stent either tomorrow or Saturday Uncertain if this will definitively relieve her symptoms but I think there is a possibility could help She is currently engaged with palliative care and I do not believe this would necessarily counter the plans as laid out, I think this would be for predominant symptom relief, her kidney function, etc. is actually quite good History of Present Illness Attending Physician: Cr Davidson MD History of Present Illness 44-year-old female who unfortunately is dealing with metastatic colon cancer She has a right indwelling ureteral stent which has offered improvement in her symptoms She previously was experiencing right flank pain and this has improved since placement of the stent She does have gross hematuria, however she is anticoagulated in addition to the stent She has had numerous emergency room and hospital visits over the past month secondary to generalized abdominal pain She now feels that she has left kidney pain She had a CT in the ER, I have personally reviewed that CT and compared it to CTs from the past including one from 02/02/2025 She has moderate hydronephrosis on the left which seems to extend down to the bladder or at least some surgical clips that are located immediately adjacent to the bladder. There does seem to be some progression in her hydronephrosis from prior. She has some nausea and has been vomiting. Her right sided stent appears to be in good position and she has no pain on the right. She had a urine culture from 02/24/2025 that grew 50,000 colony-forming units of Salma albicansuncertain if she has been treated for this Creatinine at baseline, no leukocytosis Allergies Allergy/AdvReac Type Severity Reaction Status Date / Time oxaliplatin Allergy Intermediate "HOT & Verified 02/27/25 00:23 ITCHY" IMMEDIATELY vancomycin Allergy Intermediate "HOT & Verified 02/27/25 00:23 ITCHY" IMMEDIATELY Home Medications Medication Instructions Recorded Confirmed Type apixaban 5 mg tablet (Eliquis) 5 mg PO BID 02/02/25 02/27/25 History buspirone 10 mg tablet 10 mg PO BID 02/02/25 02/27/25 History escitalopram oxalate 20 mg tablet 20 mg PO DAILY 02/02/25 02/27/25 History famotidine 20 mg tablet 20 mg PO BID 02/02/25 02/27/25 History lorazepam 0.5 mg tablet 0.5 mg PO TID PRN Anxiety 02/02/25 02/27/25 History pregabalin 50 mg capsule 50 mg PO BID #30 caps 02/06/25 02/27/25 Rx hydromorphone 4 mg tablet 4 mg PO Q4H PRN severe cancer pain 02/18/25 02/27/25 Rx (Dilaudid) 1 month #180 tabs ondansetron 8 mg disintegrating 8 mg PO Q8H PRN Nausea 02/24/25 02/27/25 History tablet methocarbamol 500 mg tablet 1,000 mg PO QID PRN NEEDED PER 02/27/25 02/27/25 History PT Patient History Medical History Nausea & vomiting Small bowel obstruction Peritonitis Abdominal pain Acute diverticulitis History of Clostridium difficile infection diagnosed 02/09/24 while admitted in hospital - treated with Vancomycin until 02/27/24 Colostomy present done 02/04/24 stoma revised 02/06/24 with an additional 4.5cm of the colon removed History of diverticulitis history of multiple flares over the past year Hx of deep venous thrombosis (2010) - s/p childbirth in 2010- was on blood thinner for short time - no DVT noted with PE on 02/16/24 Hx of migraines History of panic attacks History of pulmonary embolism dx 02/16/24 at [place]>started on Eliquis provoked by malignancy and surgical intervention per records dopplers negative for DVT Adenocarcinoma of colon dx'ed 01/2024 Perforated sigmoid colon - 02/03/24 due to enlarging mass (adenocarcinoma of the colon) - 02/04/24 underwent partial left colon resection and end colostomy Depression with anxiety Surgical History Port-A-Cath in place (03/13/24) Insertion of Access Port with Fluoroscopy into Right Internal Jugular Vein(Right) - Elizabeth Velasquez DO [place] teeth removed H/O abdominal surgery (02/05/24) Exploratory Laparoscopy Revision of Colostomy and Stoma(Not Applicable) - Elizabeth Velasquez DO History of x 2 H/O gastric sleeve (2021) History of colon resection (02/04/24) p Diagnostic Laparoscopy, with a laparoscopic colon resection, Abdominal Wash Out, Creation Colostomy(Not Applicable) - Elizabeth Velasquez DO Extensive lysis of adhesions Family History Other No family history of adverse response to anesthesia Social History Smoking Status: Never smoker Second Hand Exposure: No; Do You Dip or Chew Tobacco: No; Hx Alcohol Use: No Hx Substance Use: No Preferred Language: Moroccan Communication Ability: Effective Visual Impairment: No Limitations 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 Beliefs That Will Affect Care: None Current Living Situation: Spouse Current Living Situation Comment: Home Other Information That Helps Us Care for You: No Feels Safe at Home: Yes Safety Concerns: Feels Safe At This Time Assistive Devices: None Review of Systems Review of Systems: All systems reviewed & are unremarkable except as noted in HPI & below Physical Exam Physical Exam: Uncomfortable appearing Appropriately interactive and mentating clearly No respiratory distress No tachycardia or bradycardia Strong pulses Abdomen is soft Ileostomy is productive and healthy appearing She has moderate tenderness on the left flank and CVA, however she does not wince, guard, etc. with palpation No severe edema of the lower extremities Results & Data Vital Signs (Past 12 Hours) Vital Signs Temp Pulse Pulse Resp BP BP Pulse Ox 02/27/25 09:23 83 16 149/98 H 96 02/27/25 05:09 36.7 C 80 16 137/91 97 02/27/25 05:00 141/105 H 02/27/25 04:31 83 18 138/92 97 02/27/25 03:04 86 02/27/25 03:00 88 20 147/92 H 97 02/27/25 01:21 85 20 145/96 H 97 02/27/25 00:00 79 20 135/88 99 02/26/25 23:23 37.4 C 90 18 155/99 H 98 02/26/25 23:17 89 O2 Del Method O2 Flow Rate 02/27/25 09:23 Room Air 02/27/25 05:09 Room Air 02/27/25 05:00 Nasal Cannula 2 02/27/25 04:31 Room Air 02/27/25 03:04 02/27/25 03:00 Room Air 02/27/25 01:21 Room Air 02/27/25 00:00 02/26/25 23:23 Room Air 02/26/25 23:17 PG Care Time/CCT Total # of Minutes Spent Total Time Spent with Patient: Total time spent is greater than 50% in coordination of care (as documented) at patient's floor/unit and/or counseling patient: Coding Level of Care Code 54089 IN/OBS CONSULT LVL 4,60M Diagnoses Nausea & vomiting R11.2 Cancer related pain G89.3
--- NOTE | 2025-02-27 11:37 | Hospitalist Progress Note ---
Date of Service February 27, 2025 Assessment & Plan (1) Abdominal pain: Plan: 44-year-old female with past medical history significant for metastatic colon adenocarcinoma mets to liver and peritoneum, perforated diverticulitis/adenocarcinoma status post colostomy, pulm embolism on Eliquis, C. difficile s/p treatment, anxiety and depression, iron deficiency anemia presents with abdominal pain.Patient is having ongoing pain for several weeks now. This is her third admission since last 1 month. Patient is status post right ureteral stent on and supposed to follow-up outpatient for stent removal. She was on Bactrim and amoxicillin for postop hepatic abscess, says no longer on antibiotics. She was again admitted 06 of February for small bowel obstruction and was discharged on 02/08/2025. Patient is followed with palliative care. Currently on p.o. Dilaudid 4 mg every 3 hours as needed for pain. Patient says Dilaudid is causing her nauseous. States abdominal pain is not getting better. She is having a lot of nausea and vomiting. She says not eating because of nausea. Abdominal pain Metastatic colon cancer Acute UTI Recently status post right ureteral stent History of ESBL E. coli Patient presents with nausea and vomiting; along with abdominal pain CT abdomen/pelvismild right and minimal left pleural effusion, hepatomegaly with multiple hepatic lesion, right lower quadrant ileostomy/colostomy. Stent in right side of the kidney, mild left-sided hydronephrosis Continue pain control with Dilaudid; I discussed prioritizing oral over IV Dilaudid with the patient with the goals of discharging on oral Dilaudid. Nausea managed with Zofran, Compazine and promethazine as needed Urology evaluated the patient for left-sided hydronephrosis; n.p.o. for midnight for possible ureteral stent tomorrow/Saturday Continue on antibiotic; will follow-up on culture results History of PE On Eliquis-continue Anxiety and depression On Lexapro, BuSpar and Ativan as needed GERD On famotidine-continue DVT prophylaxis On Eliquis Disposition Medical floor Full code. Please note the above document was generated using voice recognition software. It may contain grammatical, syntax or spelling errors. Any formal questions or concerns about the content, text or information contained within the body of this dictation should be directly addressed to the provider for clarification Admission and Anticipated Discharge Date Admission Date: February 27, 2025 Subjective Patient seen and examined at bedside. She is sleepy; awake evaluate voice. Reports that promethazine worked really well for nausea. Pain is well- controlled at this time Review of Systems Review of Systems: All systems reviewed & are unremarkable except as noted in Subjective Physical Exam Physical Exam: Constitutional: Sleepy; awake able by voice Respiratory: Bilateral vesicular breath sound Cardiovascular: RRR, no murmur, no edema Vessels: no JVD or carotid bruit Chest: normal inspection of chest Abdomen: Tenderness on left side of the abdomen. colostomy bag with good output Musculoskeletal: no cyanosis or clubbing, extremities motor strength 5/5 Skin: no rashes, warm and dry normal turgor Neurologic: PERRL, EOMI, accommodation nl, no face palsy, no dysarthria CN's II- XI intact bilaterally and moves all extremities Results & Data Results & Data Vital Signs (Past 12 Hours) Vital Signs Temp Pulse Pulse Resp BP Pulse Ox O2 Del Method 02/27/25 09:23 83 16 149/98 H 96 Room Air 02/27/25 05:09 36.7 C 80 16 137/91 97 Room Air 02/27/25 05:00 141/105 H Nasal Cannula 02/27/25 04:31 83 18 138/92 97 Room Air 02/27/25 03:04 86 02/27/25 03:00 88 20 147/92 H 97 Room Air 02/27/25 01:21 85 20 145/96 H 97 Room Air 02/27/25 00:00 79 20 135/88 99 O2 Flow Rate 02/27/25 09:23 02/27/25 05:09 02/27/25 05:00 2 02/27/25 04:31 02/27/25 03:04 02/27/25 03:00 02/27/25 01:21 02/27/25 00:00
[2025-02-27] MEDS: FAMOTIDINE 20 MG TAB PO SCH (11:46)
[2025-02-27] MEDS: ESCITALOPRAM OXALATE 20 MG TAB PO SCH (11:46)
[2025-02-27] MEDS: APIXABAN 5 MG TABLET PO SCH (11:46)
[2025-02-27] MEDS: PREGABALIN 50 MG CAP PO SCH (11:46)
[2025-02-27] MEDS: FLUCONAZOLE 50 MG TAB PO ONE (11:46)
[2025-02-27] MEDS: busPIRone 5 MG TAB PO SCH (11:46)
[2025-02-27 12:43] LABS: Hematocrit (blood only) 26.7 % (37.0-47.0); Hemoglobin 8.1 g/dL (12.0-16.0); Immature Granulocytes # (auto) 0.02 K/uL (0.01-0.20); Immature Granulocytes % (auto) 0.3 %; Mean Corpuscular Hemoglobin 24.5 pg (25.0-34.0); Mean Corpuscular Volume 80.7 fL (80.0-100.0); Platelet Count 251 K/uL (130-400); RDW Standard Deviation 53.1 fL (36.4-46.3); Red Blood Count 3.31 M/uL (4.20-5.40); White Blood Count 6.82 K/ul (4.8-10.8)
[2025-02-27 13:00] LABS: Anion Gap 8.0 (3-11); Blood Urea Nitrogen 7.0 mg/dl (6-23); Calcium 7.7 mg/dl (8.6-10.3); Carbon Dioxide 23.0 mmol/L (21-32); Chloride 109.0 mmol/L (98-107); Creatinine Clr Calc Pharmacy 88.1 ml/min; Glucose 98.0 mg/dl (70-99(Fasting)); Magnesium 1.5 mg/dl (1.7-2.4); Potassium 3.6 mmol/L (3.5-5.1); Sodium 140.0 mmol/L (136-145)
[2025-02-27] MEDS: PROCHLORPERAZINE 5 MG in SYRINGE 4 ML IV PRN (14:52)
[2025-02-27] MEDS: HYDROmorphone INJ 0.5 MG/0.5 ML SYR IV PRN (19:36)
[2025-02-27] MEDS: METHOCARBAMOL 500 MG TABLET PO PRN (22:10)
[2025-02-27] MEDS: LORazepam 0.5 MG TAB PO PRN (22:10)
[2025-02-28] MEDS ORDERED: PROPOFOL IV EMULSION 10 MG/ML 20 ML VIAL IV ONE ×2 (08:22→09:24)
[2025-02-28] MEDS ORDERED: LIDOCAINE 2% 2 ML VIAL/AMP(20MG/ML) INFIL ONE ×2 (08:22→09:24)
[2025-02-28] MEDS ORDERED: ONDANSETRON INJ 2 MG/ML 2 ML VIAL ONE (08:22)
[2025-02-28] MEDS ORDERED: DEXAMETHASONE SOD INJ 4 MG/ML VIAL ONE (08:22)
[2025-02-28] MEDS ORDERED: MIDAZOLAM HCL 1 MG/ML 2ML VIAL ONE (08:23)
--- NOTE | 2025-02-28 08:38 | Urology Progress Note ---
Date of Service February 28, 2025 Assessment & Plan (1) Hydronephrosis: Plan: Moderate progression of left hydronephrosis with symptoms Conversation today about pros and cons of proceeding with a cystoscopy left ureteral stent I think is worthwhile She did have substantial improvement after placement of the right ureteral stent Although it is not definitively specific that her hydronephrosis is causing her current left-sided flank pain, I think there is a possibility that it could improve her quality of life We also discussed that if she has no improvement or worsens with the left ureteral stent placement, removal is relatively easy She is very much in agreement would like to move forward with stent placement Admission and Anticipated Discharge Date Admission Date: February 27, 2025 Subjective Subjectively slightly better today Still with some left flank pain and back pain but not as severe as prior She was n.p.o. after midnight which seems to have improved her nausea and vomiting He had a conversation today about whether or not to proceed with a stent, given that she has had recurrent left flank and back pain over the past several months, I think it is worthwhile, she also had some mild progression of her hydronephrosis on the left Physical Exam Constitutional: well developed and well nourished Respiratory: no respiratory distress Cardiovascular: Extremities: no pedal edema Gastrointestinal (Abdomen): Inspection/Auscultation: abdomen normal to inspection Results & Data Vital Signs (Past 12 Hours) Vital Signs Temp Pulse Resp BP Pulse Ox O2 Del Method 02/28/25 07:26 36.7 C 68 14 151/95 H 94 Room Air 02/27/25 22:47 36.9 C 68 16 151/98 H 98 Room Air PG Care Time/CCT Total # of Minutes Spent Total Time Spent with Patient: Total time spent is greater than 50% in coordination of care (as documented) at patient's floor/unit and/or counseling patient: Coding Level of Care Code 67740 SUB INP/OBS CARE 2/35MIN Diagnoses Hydronephrosis N13.30
[2025-02-28] MEDS ORDERED: ONDANSETRON INJ 2 MG/ML 2 ML VIAL IV PRN (09:00)
[2025-02-28] MEDS ORDERED: ATROPINE SULFATE 0.1 MG/ML 10ML SYR IV PRN (09:00)
--- NOTE | 2025-02-28 09:00 | Anesthesiology Consultation ---
Date of Service February 28, 2025 Assessment & Plan Chart Review Chart Review: Acceptable Risk for Surgery Consults Requested none ASA ASA3 Proposed Anesthesia Anesthesia Type: MAC Risk / Benefits Reviewed With: PT / POA / Parent / Guardian, Accepts Plan and Informed Consent Obtained History Surgery Operation Date: 02/28/25 09:00 Proposed Procedures p Cystoscopy - Reynaldo Torres MD s Cystoscopy, Ureteral Stent Insertion-Left(Left) - Reynaldo Torres MD Height/Weight Height: 5 ft 3 in Weight: 71.4 kg Allergies Allergy/AdvReac Type Severity Reaction Status Date / Time oxaliplatin Allergy Intermediate "HOT & Verified 02/27/25 00:23 ITCHY" IMMEDIATELY vancomycin Allergy Intermediate "HOT & Verified 02/27/25 00:23 ITCHY" IMMEDIATELY Medications Home Medications Medication Instructions Recorded Confirmed Last Taken apixaban 5 mg tablet (Eliquis) 5 mg PO BID 02/02/25 02/27/25 02/26/25 08:00 buspirone 10 mg tablet 10 mg PO BID 02/02/25 02/27/25 02/26/25 08:00 escitalopram oxalate 20 mg tablet 20 mg PO DAILY 02/02/25 02/27/25 02/26/25 famotidine 20 mg tablet 20 mg PO BID 02/02/25 02/27/25 02/26/25 08:00 lorazepam 0.5 mg tablet 0.5 mg PO TID PRN Anxiety 02/02/25 02/27/25 Unknown pregabalin 50 mg capsule 50 mg PO BID #30 caps 02/06/25 02/27/25 02/25/25 hydromorphone 4 mg tablet 4 mg PO Q4H PRN severe cancer pain 02/18/25 02/27/25 02/26/25 19:00 (Dilaudid) 1 month #180 tabs EMESIS AT 1915 ondansetron 8 mg disintegrating 8 mg PO Q8H PRN Nausea 02/24/25 02/27/25 Unknown tablet methocarbamol 500 mg tablet 1,000 mg PO QID PRN NEEDED PER 02/27/25 02/27/25 Unknown PT Active Medications Generic Name Dose Route Start Last Admin Trade Name Freq PRN Reason Stop Dose Admin Apixaban 5 mg 02/27/25 09:00 02/27/25 22:10 Apixaban 5 Mg Tablet PO 03/29/25 08:59 5 mg BID LORETTA Administration Buspirone HCl 10 mg 02/27/25 09:00 02/27/25 22:10 Buspirone 5 Mg Tab PO 03/29/25 08:59 10 mg BID LORETTA Administration Escitalopram Oxalate 20 mg 02/27/25 09:00 02/27/25 11:46 Escitalopram Oxalate 20 Mg Tab PO 03/29/25 08:59 20 mg DAILY LORETTA Administration Famotidine 20 mg 02/27/25 09:00 02/27/25 22:14 Famotidine 20 Mg Tab PO 03/29/25 08:59 20 mg BID LORETTA Administration Hydromorphone HCl 4 mg 02/27/25 10:28 02/27/25 22:10 Hydromorphone Hcl 2 Mg Tab PO 03/13/25 10:27 4 mg Q4H PRN Administration pain Hydromorphone HCl 0.5 mg 02/27/25 11:31 02/28/25 03:36 Hydromorphone Inj 0.5 Mg/0.5 Ml Syr IV 03/13/25 08:45 0.5 mg Q6H PRN Administration Pain Ertapenem 1,000 mg in 10 mls @ 2 mls/min 02/27/25 05:00 02/28/25 05:35 Invanz 1000mg IV 03/09/25 04:59 2 mls/min Q24H LORETTA Administration Acetaminophen 1,000 mg in 100 mls @ 400 mls/hr 02/27/25 05:46 02/27/25 23:01 Ofirmev IV 03/02/25 05:45 Infused Q8H PRN Infusion Pain or Fever Dextrose/Sodium Chloride 1,000 mls @ 100 mls/hr 02/27/25 06:30 02/28/25 03:35 D5w And Nss IV 03/02/25 06:29 100 mls/hr .Q10H LORETTA Administration Promethazine HCl 12.5 mg in 50.5 mls @ 202 mls/hr 02/27/25 07:36 02/27/25 23:27 Phenergan IV 03/29/25 07:35 Infused Q6H PRN Infusion Nausea And Vomiting Prochlorperazine 5 mg/ Syringe 5 mls @ 5 mls/min 02/27/25 07:36 02/27/25 14:52 IV 03/29/25 07:35 5 mls/min Q6H PRN Administration Nausea And Vomiting Lorazepam 0.5 mg 02/27/25 05:00 02/27/25 22:10 Lorazepam 0.5 Mg Tab PO 03/29/25 04:59 0.5 mg TID PRN Administration Anxiety Methocarbamol 1,000 mg 02/27/25 05:00 02/27/25 22:10 Methocarbamol 500 Mg Tablet PO 03/29/25 04:59 1,000 mg QID PRN Administration NEEDED PER PT Ondansetron HCl 4 mg 02/27/25 05:00 02/28/25 07:44 Ondansetron Inj 2 Mg/Ml 2 Ml Vial IV 03/29/25 04:59 4 mg Q6H PRN Administration Nausea Pregabalin 50 mg 02/27/25 09:00 02/27/25 22:14 Pregabalin 50 Mg Cap PO 03/29/25 08:59 50 mg BID LORETTA Administration Past Medical History Medical History Nausea & vomiting Small bowel obstruction Peritonitis Abdominal pain Acute diverticulitis History of Clostridium difficile infection diagnosed 02/09/24 while admitted in hospital - treated with Vancomycin until 02/27/24 Colostomy present done 02/04/24 stoma revised 02/06/24 with an additional 4.5cm of the colon removed History of diverticulitis history of multiple flares over the past year Hx of deep venous thrombosis (2010) - s/p childbirth in 2010- was on blood thinner for short time - no DVT noted with PE on 02/16/24 Hx of migraines History of panic attacks History of pulmonary embolism dx 02/16/24 at [place]>started on Eliquis provoked by malignancy and surgical intervention per records dopplers negative for DVT Adenocarcinoma of colon dx'ed 01/2024 Perforated sigmoid colon - 02/03/24 due to enlarging mass (adenocarcinoma of the colon) - 02/04/24 underwent partial left colon resection and end colostomy Depression with anxiety Past Family History Family History Other No family history of adverse response to anesthesia Past Surgical History Surgical History Port-A-Cath in place (03/13/24) Insertion of Access Port with Fluoroscopy into Right Internal Jugular Vein(Right) - Elizabeth Velasquez DO [place] teeth removed H/O abdominal surgery (02/05/24) Exploratory Laparoscopy Revision of Colostomy and Stoma(Not Applicable) - Elizabeth Velasquez DO History of x 2 H/O gastric sleeve (2021) History of colon resection (02/04/24) p Diagnostic Laparoscopy, with a laparoscopic colon resection, Abdominal Wash Out, Creation Colostomy(Not Applicable) - Elizabeth Velasquez DO Extensive lysis of adhesions Social History Smoking Status: Never smoker Do You Dip or Chew Tobacco: No Hx Alcohol Use: No Hx Substance Use: No substance use type: does not use Physical Exam Vital Signs Last Vital Signs Temp 36.7 C 02/28/25 07:26 Pulse 68 02/28/25 07:26 Resp 14 02/28/25 07:26 BP 151/95 H 02/28/25 07:26 Pulse Ox 94 02/28/25 07:26 O2 Del Method Room Air 02/28/25 07:26 O2 Flow Rate 2 02/27/25 05:00 Constitutional no acute distress ENMT Mouth: no TMJ abnormality Thyromental Distance: < 3.5 Finger Breadths Mallampati Class: II Neck normal visual inspection Respiratory normal respiratory effort Auscultation: lungs clear to auscultation bilaterally Cardiovascular Rate/Rhythm: regular rate and regular rhythm Musculoskeletal Spine: normal cervical ROM Extremities: extremities normal to inspection Neurologic moves all extremities Psychiatric Orientation: alert and oriented x 3 Testing Laboratory Results 02/27/25 12:28 02/27/25 12:28 PT 15.3 Seconds (9.0-12.0) H 02/26/25 23:13 INR 1.5 (0.9-1.1) H 02/26/25 23:13 Urine Color Red 02/27/25 01:00 Urine Appearance Cloudy (Clear) A 02/27/25 01:00 Urine pH 6.0 (4.5-7.5) 02/27/25 01:00 Ur Specific [employer] 1.025 (1.000-1.030) 02/27/25 01:00 Urine Protein 3+ (Negative) H 02/27/25 01:00 Urine Glucose (UA) Negative (Negative) 02/27/25 01:00 Urine Ketones 4+ (Negative) H 02/27/25 01:00 Urine Nitrite Negative (Negative) 02/27/25 01:00 Ur Leukocyte Esterase 1+ (Negative) H 02/27/25 01:00 Urine RBC >20 /hpf (0-2) H 02/27/25 01:00 Urine WBC >50 /hpf (0-5) H 02/27/25 01:00 Ur Epithelial Cells 0-2 /hpf (0-2) 02/27/25 01:00
--- NOTE | 2025-02-28 09:27 | Operative Report ---
[facility] Post Operative Report Pre & Post Diagnosis Operation Date: 02/28/25 09:00 <No data on this case meets the specified criteria> I identified the patient and participated in the time-out.: Yes Procedure Operation Date: 02/28/25 09:00 <No data on this case meets the specified criteria> Surgeon Reynaldo Torres MD Director Of Database Marketing none Estimated Blood Loss 0 Findings Consistent with Post-Op Diagnosis Specimens none Description of Procedure The patient was identified in the preoperative holding area, appropriate informed consents were reviewed and completed and the patient was transferred to the operative suite. Upon arrival, appropriate antibiotics and anesthesia were administered and the patient was placed in dorsal lithotomy position and prepped and draped in sterile fashion. To begin the case I passed a 21 [place] cystoscope with 30 degree lens. Inspection revealed a healthy appearing bladder with minimal irritation around the right ureteral stent. Left ureteral orifices in orthotopic position. There were no tumors or other abnormalities of the bladder wall. After investigating the bladder, I placed a sensor wire into the left ureter and advanced into the kidney without difficulty. I then placed a 7 [place]ian by 24 cm double-J stentColoplast model. Initially this was in the upper pole but I pulled it back to the renal pelvis where there was an excellent curl in both the kidney and bladder. The case was then concluded and she was reversed of anesthesia and taken to the recovery room in stable condition. There were no complications. I attest to the content of the Intraoperative Record and any orders documented therein. Any exceptions are noted below.
--- NOTE | 2025-02-28 10:22 | Anesthesiology Progress Note ---
Date of Service February 28, 2025 Anesthesia Post Procedure Vital Signs Vital Signs: Temp Pulse Pulse Resp BP Pulse Ox O2 Del Method 02/28/25 10:15 104 H 12 130/75 93 Nasal Cannula 02/28/25 10:05 106 H 14 114/99 93 Nasal Cannula 02/28/25 09:53 36.7 C 109 H 16 143/104 H 93 Nasal Cannula 02/28/25 09:45 119 H 18 120/98 97 Oxymask 02/28/25 09:35 36.5 C 130 H 18 133/91 98 Oxymask 02/28/25 07:26 36.7 C 68 14 151/95 H 94 Room Air 02/27/25 22:47 36.9 C 68 16 151/98 H 98 Room Air 02/27/25 14:57 37.1 C 79 16 129/88 97 Room Air O2 Flow Rate 02/28/25 10:15 3 02/28/25 10:05 3 02/28/25 09:53 3 02/28/25 09:45 8 02/28/25 09:35 15 02/28/25 07:26 02/27/25 22:47 02/27/25 14:57 Pain Intensity Bilateral Abdomen: Pain Intensity: 8 Left Flank: Pain Intensity: 7 Transfer of Care Handoff Completed per policy Notes Mental Status: alert / awake / arousable Patient Amnestic to Procedure: Yes Nausea / Vomiting: adequately controlled Pain: adequately controlled Airway Patency, RR, SpO2: stable & adequate BP & HR: stable & adequate Hydration State: stable & adequate Anesthetic Complications: no major complications apparent
--- NOTE | 2025-02-28 11:37 | Hospitalist Progress Note ---
Date of Service February 28, 2025 Assessment & Plan (1) Abdominal pain: Plan: 44-year-old female with past medical history significant for metastatic colon adenocarcinoma mets to liver and peritoneum, perforated diverticulitis/adenocarcinoma status post colostomy, pulm embolism on Eliquis, C. difficile s/p treatment, anxiety and depression, iron deficiency anemia presents with abdominal pain.Patient is having ongoing pain for several weeks now. This is her third admission since last 1 month. Patient is status post right ureteral stent on and supposed to follow-up outpatient for stent removal. She was on Bactrim and amoxicillin for postop hepatic abscess, says no longer on antibiotics. She was again admitted 06 of February for small bowel obstruction and was discharged on 02/08/2025. Patient is followed with palliative care. Currently on p.o. Dilaudid 4 mg every 3 hours as needed for pain. Patient says Dilaudid is causing her nauseous. States abdominal pain is not getting better. She is having a lot of nausea and vomiting. She says not eating because of nausea. Abdominal pain Metastatic colon cancer Acute UTI Recently status post right ureteral stent on January History of ESBL E. coli Status post cystoscopy with left ureteral stent placement on February 28, 2025 Patient presents with nausea and vomiting; along with abdominal pain CT abdomen/pelvismild right and minimal left pleural effusion, hepatomegaly with multiple hepatic lesion, right lower quadrant ileostomy/colostomy. Stent in right side of the kidney, mild left-sided hydronephrosis Underwent cystoscopy with left ureteral stent placement. Full liquid diet Continue pain control with Dilaudid; I discussed prioritizing oral over IV Dilaudid with the patient with the goals of discharging on oral Dilaudid. Nausea managed with Zofran, Compazine and promethazine as needed Continue on antibiotic; will follow-up on culture results History of PE On Eliquis-continue Anxiety and depression On Lexapro, BuSpar and Ativan as needed GERD On famotidine-continue DVT prophylaxis On Eliquis Disposition Medical floor Full code. Time spent evaluating patient, direct bedside care, chart review, placing orde rs, interpretation of diagnostic studies, discussion with consultants, patient, and family members, as well as other required patient management activities is 50 minutes Please note the above document was generated using voice recognition software. It may contain grammatical, syntax or spelling errors. Any formal questions or concerns about the content, text or information contained within the body of this dictation should be directly addressed to the provider for clarification Admission and Anticipated Discharge Date Admission Date: February 27, 2025 Subjective Patient seen after coming back from the OR. She is alert and oriented to self, time and place. Reports that she does not have much appetite; wants to be on full liquid diet. Pain is well-controlled on current medication Review of Systems Review of Systems: All systems reviewed & are unremarkable except as noted in Subjective Physical Exam Physical Exam: Constitutional: Sleepy; awake able by voice Respiratory: Bilateral vesicular breath sound Cardiovascular: RRR, no murmur, no edema Vessels: no JVD or carotid bruit Chest: normal inspection of chest Abdomen: soft, non-tender. colostomy bag with good output Musculoskeletal: no cyanosis or clubbing, extremities motor strength 5/5 Skin: no rashes, warm and dry normal turgor Neurologic: PERRL, EOMI, accommodation nl, no face palsy, no dysarthria CN's II- XI intact bilaterally and moves all extremities Results & Data Results & Data Vital Signs (Past 12 Hours) Vital Signs Temp Pulse Pulse Resp BP Pulse Ox O2 Del Method 02/28/25 10:25 36.7 C 100 H 14 133/95 94 Nasal Cannula 02/28/25 10:15 104 H 12 130/75 93 Nasal Cannula 02/28/25 10:05 106 H 14 114/99 93 Nasal Cannula 02/28/25 09:53 36.7 C 109 H 16 143/104 H 93 Nasal Cannula 02/28/25 09:45 119 H 18 120/98 97 Oxymask 02/28/25 09:35 36.5 C 130 H 18 133/91 98 Oxymask 02/28/25 07:26 36.7 C 68 14 151/95 H 94 Room Air O2 Flow Rate 02/28/25 10:25 3 02/28/25 10:15 3 02/28/25 10:05 3 02/28/25 09:53 3 02/28/25 09:45 8 02/28/25 09:35 15 02/28/25 07:26
--- NOTE | 2025-02-28 12:19 | Electrocardiogram Report ---
Test Reason : Blood Pressure : */* mmHG Vent. Rate : 88 BPM Atrial Rate : 88 BPM P-R Int : 128 ms QRS Dur : 84 ms QT Int : 346 ms P-R-T Axes : 26 -2 35 degrees QTcB Int : 418 ms Normal sinus rhythm Normal ECG When compared with ECG of 02-Feb-2025 02:51, Nonspecific T wave abnormality now evident in Anterior leads Confirmed by Shaina Munguia (Kitty) on 02/28/2025 12:19:08 PM Referred By: REFERRED SELF Confirmed By: Shaina Munguia
[2025-02-28] MEDS ORDERED: HEPARIN 100 UNIT/ML 5ML FLUSH FLUSH PRN (18:44)
[2025-02-28] MEDS: FOSAPREPITANT DIMEGLUMINE 150 MG in SODIUM CHLORIDE 0.9% 145 ML IV ONE (21:10)
[2025-02-28] MEDS: LORazepam Inj 0.25 MG in SYRINGE 0.125 ML IV STA (21:37)
[2025-02-28] MEDS: PANTOprazole 40 MG/10 ML SYR IV ONE (21:37)
[2025-03-01] MEDS: CALCIUM CARBONATE 500 MG CHEWABLE TAB PO PRN (01:11)
[2025-03-01 06:09] LABS: Hematocrit (blood only) 24.7 % (37.0-47.0); Hemoglobin 7.4 g/dL (12.0-16.0); Immature Granulocytes # (auto) 0.03 K/uL (0.01-0.20); Immature Granulocytes % (auto) 0.4 %; Mean Corpuscular Hemoglobin 24.3 pg (25.0-34.0); Mean Corpuscular Volume 81.0 fL (80.0-100.0); Platelet Count 248 K/uL (130-400); RDW Standard Deviation 53.8 fL (36.4-46.3); Red Blood Count 3.05 M/uL (4.20-5.40); White Blood Count 7.50 K/ul (4.8-10.8)
[2025-03-01 06:28] LABS: Anion Gap 7.0 (3-11); Blood Urea Nitrogen 6.0 mg/dl (6-23); Calcium 7.8 mg/dl (8.6-10.3); Carbon Dioxide 24.0 mmol/L (21-32); Chloride 113.0 mmol/L (98-107); Creatinine Clr Calc Pharmacy 107.4 ml/min; Glucose 148.0 mg/dl (70-99(Fasting)); Potassium 3.0 mmol/L (3.5-5.1); Sodium 144.0 mmol/L (136-145)
[2025-03-01 06:31] LABS: Ovalocytes 1+; Polychromasia 1+
--- NOTE | 2025-03-01 08:26 | Fluoroscopy Report ---
FL KUB CLINICAL HISTORY: LEFT STENT PLACEMENT COMPARISON STUDY: None FLUOROSCOPY TIME: 5 seconds FLUOROSCOPY IMAGES: 4 EXPOSURE DOSE: 1 mGy FINDINGS: Fluoroscopy was provided for urologic procedure. IMPRESSION: Intraoperative fluoroscopy. ACT 112: Negative or not required by law. Electronically signed by: Ricardo Green M.D. 03/01/2025 8:24 AM
--- NOTE | 2025-03-01 08:30 | Urology Progress Note ---
Date of Service March 01, 2025 Assessment & Plan (1) Hydronephrosis: Plan - POD #1 s/p cystoscopy and left ureteral stent placement - Reports improvement in left sided pain following stent placement - Afebrile and hemodynamically stable - Labs today - WBCs 7.50, Creatinine 0.64. - Urine culture 02/24 grew randi albicans; Repeat culture 02/27 prelim randi albicans - Continues on Ertapenem and was treated with a dose of Fluconazole 02/27 - Voiding spontaneously, some hematuria as expected - Continue to monitor, bladder scan as needed - Continue supportive care and management per primary team - Will arrange outpatient follow-up with our service - Urology will sign-off, please recall as needed Admission and Anticipated Discharge Date Admission Date: February 27, 2025 Subjective Pt seen at bedside this morning. Awake and resting in bed on arrival. No acute distress. Reports improvement in left sided pain. Voiding w/hematuria. Denies d ysuria. Feels she is emptying her bladder well. No fevers or chills. Reports chronic intermittent N/V. Review of Systems Constitutional: as per Subjective / HPI Genitourinary: as per Subjective / HPI Physical Exam Constitutional: no acute distress Respiratory: no respiratory distress and no labored breathing Neurologic: awake Psychiatric: A+Ox3, euthymic affect Results & Data Vital Signs (Past 12 Hours) Vital Signs Temp Pulse Resp BP Pulse Ox O2 Del Method 03/01/25 07:35 37.0 C 73 18 156/97 H 94 Room Air 03/01/25 03:43 37.2 C 85 18 146/97 H 97 Room Air 02/28/25 22:57 37.2 C 79 18 129/88 96 Room Air PG Care Time/CCT Total # of Minutes Spent Total Time Spent with Patient: Total time spent is greater than 50% in coordination of care (as documented) at patient's floor/unit and/or counseling patient: Coding Level of Care Code 45122 SUB INP/OBS CARE 2/35MIN Diagnoses Hydronephrosis N13.30
[2025-03-01] MEDS: POTASSIUM CHLORIDE / WTR 10 MEQ/100 ML PLCT IV SCH (08:58)
[2025-03-01] MEDS: PANTOprazole 40 MG/10 ML SYR IV SCH (09:09)
[2025-03-01] MEDS: BACLOFEN 10 MG TAB PO ONE ×2 (09:09→16:52)
--- NOTE | 2025-03-01 10:07 | XRay Report ---
KUB HISTORY: persistant hicupps COMPARISON STUDY: 02/27/2025 FINDINGS: Stable IVC filter. Bilateral ureteral stents appear grossly well-positioned. There is mild retained stool. There are a few mildly distended small bowel loops at the left upper quadrant measuri ng up to 3.5 cm, grossly stable. No colonic distention seen. No gross free air. IMPRESSION: Grossly stable mild small bowel distention. ACT 112: Negative or not required by law. The above report was generated using voice recognition software. It may contain grammatical, syntax o r spelling errors. Electronically signed by: Ricardo Green M.D. 03/01/2025 10:06 AM
--- NOTE | 2025-03-01 10:52 | Hospitalist Progress Note ---
Date of Service March 01, 2025 Assessment & Plan (1) Abdominal pain: Plan: 44-year-old female with past medical history significant for metastatic colon adenocarcinoma mets to liver and peritoneum, perforated diverticulitis/adenocarcinoma status post colostomy, pulm embolism on Eliquis, C. difficile s/p treatment, anxiety and depression, iron deficiency anemia presents with abdominal pain.Patient is having ongoing pain for several weeks now. This is her third admission since last 1 month. Patient is status post right ureteral stent on and supposed to follow-up outpatient for stent removal. She was on Bactrim and amoxicillin for postop hepatic abscess, says no longer on antibiotics. She was again admitted 06 of February for small bowel obstruction and was discharged on 02/08/2025. Patient is followed with palliative care. Currently on p.o. Dilaudid 4 mg every 3 hours as needed for pain. Patient says Dilaudid is causing her nauseous. States abdominal pain is not getting better. She is having a lot of nausea and vomiting. She says not eating because of nausea. Abdominal pain Metastatic colon cancer Acute UTI Recently status post right ureteral stent on January History of ESBL E. coli Status post cystoscopy with left ureteral stent placement on February 28, 2025 Patient presents with nausea and vomiting; along with abdominal pain CT abdomen/pelvismild right and minimal left pleural effusion, hepatomegaly with multiple hepatic lesion, right lower quadrant ileostomy/colostomy. Stent in right side of the kidney, mild left-sided hydronephrosis Underwent cystoscopy with left ureteral stent placement on 02/28/2025 Urine culture again positive for Salma albicans Patient reports improvement in abdominal pain since placement of the left ureteral stent. She reports that the current medication regimen is helping with the pain. However, she reports that nausea/vomiting has been persistent despite being on multiple antinausea medication. KUB x-ray done on 03/01 shows grossly stable mildly small bowel distention. GI is consulted for comanagement. Will add Zyprexa 2.5 mg at this to see if it will help any relief with the nausea/vomiting. Given recent ureteral procedure; will start on fluconazole for candiduria. Plan to treat for 2 weeks. History of PE On Eliquis-continue Anxiety and depression On Lexapro, BuSpar and Ativan as needed GERD On famotidine-continue DVT prophylaxis On Eliquis Disposition Medical floor Full code. Time spent evaluating patient, direct bedside care, chart review, placing orders, interpretation of diagnostic studies, discussion with consultants, patient, and family members, as well as other required patient management activities is 50 minutes Please note the above document was generated using voice recognition software. It may contain grammatical, syntax or spelling errors. Any formal questions or concerns about the content, text or information contained within the body of this dictation should be directly addressed to the provider for clarification Admission and Anticipated Discharge Date Admission Date: February 27, 2025 Subjective Patient seen and examined at bedside. Overnight, she had multiple episode of vomiting for which she received fosaprepitant. Despite that; she reports continuous nausea/vomiting episodes. Reports that pain has improved since the placement of the stent. Review of Systems Review of Systems: All systems reviewed & are unremarkable except as noted in Subjective Physical Exam Physical Exam: Constitutional: appears uncomfortable; having hiccups Respiratory: Bilateral vesicular breath sound Cardiovascular: RRR, no murmur, no edema Vessels: no JVD or carotid bruit Chest: normal inspection of chest Abdomen: soft, non-tender. colostomy bag with greenish output Musculoskeletal: no cyanosis or clubbing, extremities motor strength 5/5 Skin: no rashes, warm and dry normal turgor Neurologic: PERRL, EOMI, accommodation nl, no face palsy, no dysarthria CN's II- XI intact bilaterally and moves all extremities Results & Data Results & Data Vital Signs (Past 12 Hours) Vital Signs Temp Pulse Resp BP Pulse Ox O2 Del Method 03/01/25 07:35 37.0 C 73 18 156/97 H 94 Room Air 03/01/25 03:43 37.2 C 85 18 146/97 H 97 Room Air 02/28/25 22:57 37.2 C 79 18 129/88 96 Room Air
[2025-03-01] MEDS: FLUCONAZOLE 100 MG TAB PO SCH (11:21)
[2025-03-01] MEDS: FLUCONAZOLE 200 MG/100 ML BAG IV SCH (11:50)
[2025-03-01] MEDS: CHLORASEPTIC (PHENOL) 1.4% SOLN 180 ML BTL MT PRN (12:33)
--- NOTE | 2025-03-01 14:13 | Gastrointestinal Consultation ---
<Statement entered by Santiago Richardson MD - 03/01/25 17:30> ATTENDING ADDENDUM The patient was seen and evaluated at bedside. The hospital labs, data, records and imaging reviewed at length. The case was discussed with the GI physicians veterinary technician assistant and I agree with her assessment and plan as outlined above. The patient continues to have intractable nausea and vomiting in the background of metastatic colorectal cancer. She is interested in an upper endoscopy for further evaluation. This will be performed 03/02/2025. Further recommendations to follow thereafter. I suspect the patient's nausea and vomiting are multifactorial possibly related to focal partial obstruction. Thank you for the courtesy of this consultation. Further recommendations to follow after upper endoscopy. Date of Consultation March 01, 2025 Assessment & Plan (1) Nausea & vomiting: - Plan -Can trial Reglan if not already attempted -EGD tomorrow to rule out upper GI sources of n/v -Do question if a component of n/v is related to ongoing need for narcotics given her cancer process History of Present Illness Reason for Consultation: N/v Attending Physician: Cr Davidson MD History of Present Illness Patient is a 44 yo female with PMH of metastatic colon adenocarcinoma with mets to the liver and peritoneum, perforated diverticulitis/adenocarcinoma s/p colostomy, PE on Eliquis, C diff s/p treatment, anxiety, depression, and ELIJAH. She has been having abdominal pain for several weeks and has been frequently readmitted for this. She had a ureteral stent on 02/03/25 and is planned for outpatient stent removal. She was on Bactrim and Amoxicillin for postop hepatic abscess at some point but is no longer on these. She had a recent SBO earlier in February. She takes narcotic pain meds q 3 hours. She recognizes that the narcotics nauseate her. She tells me today she has not had improvement with Zofran, Promethazine, & Emend. She notes Emend made her feel worse. Patient is asking for an EGD. Allergies Allergy/AdvReac Type Severity Reaction Status Date / Time oxaliplatin Allergy Intermediate "HOT & Verified 02/27/25 00:23 ITCHY" IMMEDIATELY vancomycin Allergy Intermediate "HOT & Verified 02/27/25 00:23 ITCHY" IMMEDIATELY Home Medications Medication Instructions Recorded Confirmed Type apixaban 5 mg tablet (Eliquis) 5 mg PO BID 02/02/25 02/27/25 History buspirone 10 mg tablet 10 mg PO BID 02/02/25 02/27/25 History escitalopram oxalate 20 mg tablet 20 mg PO DAILY 02/02/25 02/27/25 History famotidine 20 mg tablet 20 mg PO BID 02/02/25 02/27/25 History lorazepam 0.5 mg tablet 0.5 mg PO TID PRN Anxiety 02/02/25 02/27/25 History pregabalin 50 mg capsule 50 mg PO BID #30 caps 02/06/25 02/27/25 Rx hydromorphone 4 mg tablet 4 mg PO Q4H PRN severe cancer pain 02/18/25 02/27/25 Rx (Dilaudid) 1 month #180 tabs ondansetron 8 mg disintegrating 8 mg PO Q8H PRN Nausea 02/24/25 02/27/25 History tablet methocarbamol 500 mg tablet 1,000 mg PO QID PRN NEEDED PER 02/27/25 02/27/25 History PT Patient History Medical History Nausea & vomiting Small bowel obstruction Peritonitis Abdominal pain Acute diverticulitis History of Clostridium difficile infection diagnosed 02/09/24 while admitted in hospital - treated with Vancomycin until 02/27/24 Colostomy present done 02/04/24 stoma revised 02/06/24 with an additional 4.5cm of the colon removed History of diverticulitis history of multiple flares over the past year Hx of deep venous thrombosis (2010) - s/p childbirth in 2010- was on blood thinner for short time - no DVT noted with PE on 02/16/24 Hx of migraines History of panic attacks History of pulmonary embolism dx 02/16/24 at [facility]>started on Eliquis provoked by malignancy and surgical intervention per records dopplers negative for DVT Adenocarcinoma of colon dx'ed 01/2024 Perforated sigmoid colon - 02/03/24 due to enlarging mass (adenocarcinoma of the colon) - 02/04/24 underwent partial left colon resection and end colostomy Depression with anxiety Surgical History Port-A-Cath in place (03/13/24) Insertion of Access Port with Fluoroscopy into Right Internal Jugular Vein(Right) - Elizabeth Velasquez DO [place] teeth removed H/O abdominal surgery (02/05/24) Exploratory Laparoscopy Revision of Colostomy and Stoma(Not Applicable) - Elizabeth Velasquez DO History of x 2 H/O gastric sleeve (2021) History of colon resection (02/04/24) p Diagnostic Laparoscopy, with a laparoscopic colon resection, Abdominal Wash Out, Creation Colostomy(Not Applicable) - Elizabeth Velasquez DO Extensive lysis of adhesions Family History Other No family history of adverse response to anesthesia Social History Smoking Status: Never smoker Second Hand Exposure: No; Do You Dip or Chew Tobacco: No; Hx Alcohol Use: No Hx Substance Use: No Preferred Language: Vietnamese Communication Ability: Effective Visual Impairment: No Limitations Photography Professor Required: No Beliefs That Will Affect Care: None Current Living Situation: Spouse Current Living Situation Comment: Home Feels Safe at Home: Yes Assistive Devices: None Review of Systems Constitutional: no fever and no chills Respiratory: no cough Cardiovascular: no chest pain Gastrointestinal: + abdominal pain and + nausea Physical Exam Constitutional: well developed Respiratory: normal respiratory effort Gastrointestinal (Abdomen): normal bowel sounds, soft, nontender, no hepatosplenomegaly Results & Data Vital Signs (Past 12 Hours) Vital Signs Temp Pulse Resp BP Pulse Ox O2 Del Method 03/01/25 07:35 37.0 C 73 18 156/97 H 94 Room Air 03/01/25 03:43 37.2 C 85 18 146/97 H 97 Room Air PG Care Time/CCT Total # of Minutes Spent Total Time Spent with Patient: Total time spent is greater than 50% in coordination of care (as documented) at patient's floor/unit and/or counseling patient: Coding Level of Care Code 50091 IN/OBS CONSULT LVL 4,60M Diagnoses Nausea & vomiting R11.2 Vomiting type: unspecified (1) Nausea & vomiting Vomiting type: unspecified Qualified Code(s): R11.2 - Nausea with vomiting, unspecified
[2025-03-01] MEDS: LORazepam Inj 0.25 MG in SYRINGE 0.125 ML IV STA (14:56)
[2025-03-01] MEDS: OLANZAPINE 2.5 MG TAB PO SCH (21:18)
[2025-03-02] MEDS: LORazepam Inj 0.5 MG in SYRINGE 0.25 ML IV PRN (00:53)
[2025-03-02] MEDS ORDERED: Nursing to Pharmacy Communication SCH (03:30)
[2025-03-02] MEDS: ACETAMINOPHEN 1,000 MG/100 ML VIAL IV PRN (06:30)
[2025-03-02] MEDS: HYDROmorphone INJ 0.5 MG/0.5 ML SYR IV PRN (08:35)
--- NOTE | 2025-03-02 09:34 | Gastroenterology Progress Note ---
Date of Service March 02, 2025 Assessment & Plan (1) Nausea & vomiting: Plan: 44 year old female w/ history of metastatic colon adenocarcinoma to the liver and peritoneum, perforated diverticulitis/adenocarcinoma s/p colostomy, PE on Eliquis, C diff s/p treatment, anxiety, depression, ELIJAH and others below admitted w/ nausea/vomiting. There was an episode of emesis this AM around [id number]. Will update endoscopy unit. NPO for EGD evaluation Continue Pantoprazole Continue Pepcid Hold Eliquis We appreciate assistance in the management of any serological abnormality and corrections to include: hemoglobin >7, INR <2, platelets >50,000, potassium levels >3.5 but <5.3, and sodium levels within 5 points of the reference range prior to endoscopic evaluation. Admission and Anticipated Discharge Date Admission Date: February 27, 2025 Subjective She reports emesis around 0600 or 0630. This was small volume and occurred after bout of hiccups, regurgitation. No abd pain. No black or bloody stools. No fever, chills, CP, SOB. Review of Systems Review of Systems: All other findings negative except as noted in HPI. Physical Exam Constitutional: WD/WN, vitals as above Respiratory: normal respiratory effort, lungs clear to auscultation Cardiovascular: RRR, no murmur, no edema Gastrointestinal (Abdomen): normal bowel sounds, soft, nontender, no hepatosplenomegaly Skin: no rashes, warm and dry Results & Data Results & Data Vital Signs (Past 12 Hours) Vital Signs Temp Pulse Pulse Resp BP Pulse Ox O2 Del Method 03/02/25 08:10 98.4 F 80 14 158/92 H 95 Room Air 03/01/25 23:15 97.9 F 71 16 143/92 H 98 Room Air PG Care Time/CCT Total # of Minutes Spent Total Time Spent with Patient: Total time spent is greater than 50% in coordination of care (as documented) at patient's floor/unit and/or counseling patient: Coding Level of Care Code None Diagnoses Nausea & vomiting R11.2
[2025-03-02] MEDS: BACLOFEN 10 MG TAB PO SCH (10:18)
--- NOTE | 2025-03-02 10:27 | Hospitalist Progress Note ---
Date of Service March 02, 2025 Assessment & Plan (1) Abdominal pain: Plan: 44-year-old female with past medical history significant for metastatic colon adenocarcinoma mets to liver and peritoneum, perforated diverticulitis/adenocarcinoma status post colostomy, pulm embolism on Eliquis, C. difficile s/p treatment, anxiety and depression, iron deficiency anemia presents with abdominal pain.Patient is having ongoing pain for several weeks now. This is her third admission since last 1 month. Patient is status post right ureteral stent on and supposed to follow-up outpatient for stent removal. She was on Bactrim and amoxicillin for postop hepatic abscess, says no longer on antibiotics. She was again admitted 06 of February for small bowel obstruction and was discharged on 02/08/2025. Patient is followed with palliative care. Currently on p.o. Dilaudid 4 mg every 3 hours as needed for pain. Patient says Dilaudid is causing her nauseous. States abdominal pain is not getting better. She is having a lot of nausea and vomiting. She says not eating because of nausea. Abdominal pain Persistent Nausea/vomiting Metastatic colon cancer Acute UTI Recently status post right ureteral stent on January Status post cystoscopy with left ureteral stent placement on February 28, 2025 Patient presents with nausea and vomiting; along with abdominal pain CT abdomen/pelvismild right and minimal left pleural effusion, hepatomegaly with multiple hepatic lesion, right lower quadrant ileostomy/colostomy. Stent in right side of the kidney, mild left-sided hydronephrosis Underwent cystoscopy with left ureteral stent placement on 02/28/2025 Urine culture again positive for Salma albicans -Patient reports improvement in abdominal pain since placement of the left ureteral stent. She reports that the current medication regimen is helping with the pain. However, she reports that nausea/vomiting has been persistent despite being on multiple antinausea medication. KUB x-ray done on 03/01 shows grossly stable mildly small bowel distention. GI is consulted for comanagement. -Trial of Zyprexa 2.5 mg at bedtime to see if any relief from nausea/vomiting. GI planning for endoscopy today. Continue on Compazine, Zofran and Phenergan as needed for nausea/vomiting -Given recent ureteral procedure; will start on fluconazole for candiduria. Plan to treat for 2 weeks. Patient's surgical oncologist Dr. Johnson reached out on March 01, 2025. I provided update on patient's current condition. He reports that unfortunately patient does have recurrence of colon cancer given elevated tumor markers. The initial plan was reversal of the colostomy- which will be kept on hold for the time being as it will delay patient to obtain chemotherapy. He also asked me to discuss with patient if she wants to follow-up with local oncology for chemotherapy. I updated the patient about my discussion with her surgical oncologist on March 02, 2025; she verbalized understanding. She wants to follow-up at [facility] oncology. She reports that PET/CT is still not done yet; would like to follow- up with them to have it done. Anemiahemoglobin noted to have downtrended from baseline of 8-7.2. EGD pending. On IV Protonix twice a day History of PE On Eliquis- on hold for now; resume after endoscopy Anxiety and depression On Lexapro, BuSpar and Ativan as needed GERD on protonix-continue DVT prophylaxis On Eliquis Disposition Medical floor Full code. Time spent evaluating patient, direct bedside care, chart review, placing or ders, interpretation of diagnostic studies, discussion with consultants, patient, and family members, as well as other required patient management activities is 50 minutes Please note the above document was generated using voice recognition software. It may contain grammatical, syntax or spelling errors. Any formal questions or concerns about the content, text or information contained within the body of this dictation should be directly addressed to the provider for clarification Admission and Anticipated Discharge Date Admission Date: February 27, 2025 Subjective Patient seen and examined at bedside. She reports that she continues to have nausea and vomiting overnight. Output through the colostomy tube have improved. Pain is well-controlled Review of Systems Review of Systems: All systems reviewed & are unremarkable except as noted in Subjective Physical Exam Physical Exam: Constitutional: appears uncomfortable; continues to have intermittent hicupps Respiratory: Bilateral vesicular breath sound Cardiovascular: RRR, no murmur, no edema Vessels: no JVD or carotid bruit Chest: normal inspection of chest Abdomen: soft, non-tender. colostomy bag with greenish output Musculoskeletal: no cyanosis or clubbing, extremities motor strength 5/5 Skin: no rashes, warm and dry normal turgor Neurologic: PERRL, EOMI, accommodation nl, no face palsy, no dysarthria CN's II- XI intact bilaterally and moves all extremities Results & Data Results & Data Vital Signs (Past 12 Hours) Vital Signs Temp Pulse Pulse Resp BP Pulse Ox O2 Del Method 03/02/25 08:10 36.9 C 80 14 158/92 H 95 Room Air 03/01/25 23:15 36.6 C 71 16 143/92 H 98 Room Air
[2025-03-02 10:38] LABS: Hematocrit (blood only) 23.6 % (37.0-47.0); Hemoglobin 7.2 g/dL (12.0-16.0); Immature Granulocytes # (auto) 0.08 K/uL (0.01-0.20); Immature Granulocytes % (auto) 0.8 %; Mean Corpuscular Hemoglobin 24.8 pg (25.0-34.0); Mean Corpuscular Volume 81.4 fL (80.0-100.0); Platelet Count 275 K/uL (130-400); RDW Standard Deviation 55.4 fL (36.4-46.3); Red Blood Count 2.90 M/uL (4.20-5.40); White Blood Count 9.83 K/ul (4.8-10.8)
[2025-03-02 10:40] LABS: Anion Gap 8.0 (3-11); Blood Urea Nitrogen 10.0 mg/dl (6-23); Calcium 7.7 mg/dl (8.6-10.3); Carbon Dioxide 23.0 mmol/L (21-32); Chloride 112.0 mmol/L (98-107); Creatinine Clr Calc Pharmacy 129.6 ml/min; Glucose 99.0 mg/dl (70-99(Fasting)); Potassium 3.0 mmol/L (3.5-5.1); Sodium 143.0 mmol/L (136-145)
[2025-03-02] MEDS ORDERED: POTASSIUM CHLORIDE / WTR 10 MEQ/100 ML PLCT IV SCH (10:45)
[2025-03-02 11:12] LABS: Polychromasia 1+
--- NOTE | 2025-03-02 13:13 | Anesthesiology Consultation ---
Date of Service March 02, 2025 Assessment & Plan Chart Review Chart Review: Acceptable Risk for Surgery Consults Requested none ASA ASA3 Proposed Anesthesia Anesthesia Type: MAC Risk / Benefits Reviewed With: PT / POA / Parent / Guardian, Accepts Plan and Informed Consent Obtained History Surgery Operation Date: 02/28/25 09:00 Proposed Procedures p Cystoscopy - Reynaldo Torres MD s Cystoscopy, Ureteral Stent Insertion-Left(Left) - Reynaldo Torres MD Operation Date: 03/02/25 17:10 Proposed Procedures p Esophagogastroduodenoscopy Dr. Richardson - Santiago Richardson MD Height/Weight Height: 5 ft 3 in Weight: 71.4 kg Allergies Allergy/AdvReac Type Severity Reaction Status Date / Time oxaliplatin Allergy Intermediate "HOT & Verified 02/27/25 00:23 ITCHY" IMMEDIATELY vancomycin Allergy Intermediate "HOT & Verified 02/27/25 00:23 ITCHY" IMMEDIATELY Medications Home Medications Medication Instructions Recorded Confirmed Last Taken apixaban 5 mg tablet (Eliquis) 5 mg PO BID 02/02/25 02/27/25 02/26/25 08:00 buspirone 10 mg tablet 10 mg PO BID 02/02/25 02/27/25 02/26/25 08:00 escitalopram oxalate 20 mg tablet 20 mg PO DAILY 02/02/25 02/27/25 02/26/25 famotidine 20 mg tablet 20 mg PO BID 02/02/25 02/27/25 02/26/25 08:00 lorazepam 0.5 mg tablet 0.5 mg PO TID PRN Anxiety 02/02/25 02/27/25 Unknown pregabalin 50 mg capsule 50 mg PO BID #30 caps 02/06/25 02/27/25 02/25/25 hydromorphone 4 mg tablet 4 mg PO Q4H PRN severe cancer pain 02/18/25 02/27/25 02/26/25 19:00 (Dilaudid) 1 month #180 tabs EMESIS AT 1915 ondansetron 8 mg disintegrating 8 mg PO Q8H PRN Nausea 02/24/25 02/27/25 Unknown tablet methocarbamol 500 mg tablet 1,000 mg PO QID PRN NEEDED PER 02/27/25 02/27/25 Unknown PT Active Medications Generic Name Dose Route Start Last Admin Trade Name Freq PRN Reason Stop Dose Admin Apixaban 5 mg 02/27/25 09:00 03/02/25 10:18 Apixaban 5 Mg Tablet PO 03/29/25 08:59 Not Given BID [facility] Baclofen 10 mg 03/02/25 09:00 03/02/25 10:18 Baclofen 10 Mg Tab PO 04/01/25 08:59 Not Given TID [place]OR[facility] Buspirone HCl 10 mg 02/27/25 09:00 03/02/25 10:18 Buspirone 5 Mg Tab PO 03/29/25 08:59 Not Given BID [place] Calcium Carbonate 500 mg 03/01/25 00:48 03/01/25 10:44 Calcium Carbonate 500 Mg Chewable Tab PO 03/31/25 00:47 500 mg BID PRN Administration Heartburn Escitalopram Oxalate 20 mg 02/27/25 09:00 03/02/25 10:18 Escitalopram Oxalate 20 Mg Tab PO 03/29/25 08:59 Not Given DAILY [facility] Famotidine 20 mg 02/27/25 09:00 03/02/25 10:19 Famotidine 20 Mg Tab PO 03/29/25 08:59 Not Given BID [facility] Hydromorphone HCl 4 mg 02/27/25 10:28 02/27/25 22:10 Hydromorphone Hcl 2 Mg Tab PO 03/13/25 10:27 4 mg Q4H PRN Administration pain Hydromorphone HCl 0.5 mg 03/02/25 08:24 03/02/25 08:35 Hydromorphone Inj 0.5 Mg/0.5 Ml Syr IV 03/13/25 11:30 0.5 mg Q4H PRN Administration Pain Promethazine HCl 12.5 mg in 50.5 mls @ 202 mls/hr 02/27/25 07:36 03/01/25 13:05 Phenergan IV 03/29/25 07:35 Infused Q6H PRN Infusion Nausea And Vomiting Prochlorperazine 5 mg/ Syringe 5 mls @ 5 mls/min 02/27/25 07:36 02/28/25 18:14 IV 03/29/25 07:35 5 mls/min Q6H PRN Administration Nausea And Vomiting Fluconazole 200 mg in 100 mls @ 100 mls/hr 03/01/25 11:00 03/02/25 12:24 Diflucan IV 03/11/25 10:59 100 mls/hr Q24H [place] Administration Lorazepam 0.5 mg/ Syringe 0.5 mls @ 2 mls/min 03/02/25 00:20 03/02/25 00:53 IV 04/01/25 00:19 2 mls/min Q8H PRN Administration Anxiety/Agitation Acetaminophen 1,000 mg in 100 mls @ 400 mls/hr 03/02/25 06:14 03/02/25 06:46 Ofirmev IV 03/05/25 06:13 Infused Q8H PRN Infusion pain/fever Lorazepam 0.5 mg 02/27/25 05:00 02/28/25 20:07 Lorazepam 0.5 Mg Tab PO 03/29/25 04:59 0.5 mg TID PRN Administration Anxiety Olanzapine 2.5 mg 03/01/25 21:00 03/01/25 21:18 Olanzapine 2.5 Mg Tab PO 03/31/25 20:59 2.5 mg HS LORETTA Administration Ondansetron HCl 4 mg 02/27/25 05:00 03/02/25 08:38 Ondansetron Inj 2 Mg/Ml 2 Ml Vial IV 03/29/25 04:59 4 mg Q6H PRN Administration Nausea Phenol 2 sprays 03/01/25 09:27 03/01/25 12:33 Chloraseptic (Phenol) 1.4% Soln 180 Ml Btl MT 03/31/25 09:26 2 sprays Q6H PRN Administration throat pain Pregabalin 50 mg 02/27/25 09:00 03/02/25 10:19 Pregabalin 50 Mg Cap PO 03/29/25 08:59 Not Given BID LORET[place] NPO Date Last Intake of Fluids: 02/27/25 Time Last Intake of Fluids: 20:00 Date Last Intake of Solids: 02/27/25 Time Last Intake of Solids: 20:00 Past Medical History Medical History Nausea & vomiting Small bowel obstruction Peritonitis Abdominal pain Acute diverticulitis History of Clostridium difficile infection diagnosed 02/09/24 while admitted in hospital - treated with Vancomycin until 02/27/24 Colostomy present done 02/04/24 stoma revised 02/06/24 with an additional 4.5cm of the colon removed History of diverticulitis history of multiple flares over the past year Hx of deep venous thrombosis (2010) - s/p childbirth in 2010- was on blood thinner for short time - no DVT noted with PE on 02/16/24 Hx of migraines History of panic attacks History of pulmonary embolism dx 02/16/24 at [place]>started on Eliquis provoked by malignancy and surgical intervention per records dopplers negative for DVT Adenocarcinoma of colon dx'ed 01/2024 Perforated sigmoid colon - 02/03/24 due to enlarging mass (adenocarcinoma of the colon) - 02/04/24 underwent partial left colon resection and end colostomy Depression with anxiety Exercise / Class Metabolic Activity II 4-5 Yardwork/Stairs/Walk up hill Past Family History Family History Other No family history of adverse response to anesthesia Past Surgical History Surgical History (Updated 03/02/25 @ 13:15 by Madiha Vieira DO) Hx of hysterectomy Port-A-Cath in place (03/13/24) Insertion of Access Port with Fluoroscopy into Right Internal Jugular Vein(Right) - Elizabeth Velasquez DO [place] teeth removed H/O abdominal surgery (02/05/24) Exploratory Laparoscopy Revision of Colostomy and Stoma(Not Applicable) - Elizabeth Velasquez DO History of x 2 H/O gastric sleeve (2021) History of colon resection (02/04/24) p Diagnostic Laparoscopy, with a laparoscopic colon resection, Abdominal Wash Out, Creation Colostomy(Not Applicable) - Elizabeth Velasquez DO Extensive lysis of adhesions Past Anesthesia History No Hx of Anesthesia Complications and No Family Hx of Anesthesia Complications History of PONV No Hx of PONV and No Hx of Motion Sickness Social History Smoking Status: Never smoker Do You Dip or Chew Tobacco: No Hx Alcohol Use: No Hx Substance Use: No substance use type: does not use Physical Exam Vital Signs Last Vital Signs Temp 36.9 C 03/02/25 08:10 Pulse 80 03/02/25 08:10 Resp 14 03/02/25 08:10 BP 158/92 H 03/02/25 08:10 Pulse Ox 95 03/02/25 08:10 O2 Del Method Room Air 03/02/25 08:10 O2 Flow Rate 2 02/28/25 14:24 ENMT Mouth: no TMJ abnormality Thyromental Distance: > or= 3.5 Finger Breadths Mallampati Class: II Neck normal visual inspection and trachea midline; neck extension not limited Respiratory normal respiratory effort Auscultation: lungs clear to auscultation bilaterally Cardiovascular Rate/Rhythm: regular rate and regular rhythm Heart Sounds: no murmur Musculoskeletal Spine: normal cervical ROM Extremities: full ROM of extremities Neurologic moves all extremities Psychiatric Orientation: alert and oriented x 3 Testing Laboratory Results 03/02/25 09:55 03/02/25 09:55 PT 15.3 Seconds (9.0-12.0) H 02/26/25 23:13 INR 1.5 (0.9-1.1) H 02/26/25 23:13 Urine Color Red 02/27/25 01:00 Urine Appearance Cloudy (Clear) A 02/27/25 01:00 Urine pH 6.0 (4.5-7.5) 02/27/25 01:00 Ur Specific [place] 1.025 (1.000-1.030) 02/27/25 01:00 Urine Protein 3+ (Negative) H 02/27/25 01:00 Urine Glucose (UA) Negative (Negative) 02/27/25 01:00 Urine Ketones 4+ (Negative) H 02/27/25 01:00 Urine Nitrite Negative (Negative) 02/27/25 01:00 Ur Leukocyte Esterase 1+ (Negative) H 02/27/25 01:00 Urine RBC >20 /hpf (0-2) H 02/27/25 01:00 Urine WBC >50 /hpf (0-5) H 02/27/25 01:00 Ur Epithelial Cells 0-2 /hpf (0-2) 02/27/25 01:00 02/27/25 01:00 Urine Culture - Final Urine,Clean Catch Salma albicans
[2025-03-02] MEDS: ONDANSETRON INJ 2 MG/ML 2 ML VIAL IV STA (14:00)
--- NOTE | 2025-03-02 14:31 | GI REPORT ---
[facility] Patient: ANDREA MCBRIDE : 1980 Sex at : Female Age: 44 Years Procedure: Upper GI endoscopy Date: 03/02/2025 Attending Physician: Santiago Richardson MD Referring MD: Referred Self; Cr Davidson Md Indications: - Nausea with vomiting - Metastatic colon cancer Medications: - See the Anesthesia note for documentation of the administered medications Complications: - No immediate complications. Estimated Blood Loss: - Estimated blood loss was minimal. Procedure: - Prior to the procedure, a History and Physical was performed, and patient medications and allergies were reviewed. The patient's tolerance of previous anesthesia was also reviewed. The risks and benefits of the procedure and the sedation options and risks were discussed with the patient. All questions were answered, and informed consent was obtained. Prior Anticoagulants: The patient has taken no anticoagulant or antiplatelet agents. ASA Grade Assessment: III - A patient with severe systemic disease. After reviewing the risks and benefits, the patient was deemed in satisfactory condition to undergo the procedure. - The egd scope was introduced through the mouth and advanced to the third part of the duodenum. - The upper GI endoscopy was accomplished without difficulty. - The patient tolerated the procedure well. Findings: - The examined duodenum was normal. - Evidence of a sleeve gastrectomy was found. This was characterized by healthy appearing mucosa. - Bilious fluid was found in the entire examined stomach. Fluid aspiration was performed. - Patchy mildly erythematous mucosa without bleeding was found in the entire examined stomach. This was biopsied with a cold forceps for histology. - LA Grade D (one or more mucosal breaks involving at least 75% of esophageal circumference) esophagitis with bleeding was found at the gastroesophageal junction (on retroflexion). This was biopsied with a cold forceps for evaluation to rule out Sage's Esophagus. - Bilious fluid was found in the entire esophagus. Fluid aspiration was performed. - The mid esophagus was normal. This was biopsied with a cold forceps for evaluation of eosinophilic esophagitis. Impression: - Normal examined duodenum. - A sleeve gastrectomy was found, characterized by healthy appearing mucosa. - Bilious gastric fluid. Fluid aspiration performed. - Erythematous mucosa in the stomach. Biopsied. - LA Grade D reflux esophagitis with bleeding. Biopsied. - Bilious fluid in the esophagus. Fluid aspiration performed. - Normal mid esophagus. Biopsied. - In light of the large amount of retained fluid in the stomach and esophagus at least some degree of partial obstruction motility is suspected likely related to overall tumor burden. Recommendation: - Await pathology results. - Clear liquid diet today. - Monitor clinically. Would schedule prokinetic therapy in light of large amount of retained fluid in the stomach and esophagus. - Continue proton pump inhibitor twice daily. Procedure Code(s): - 29107, Esophagogastroduodenoscopy, flexible, transoral; with biopsy, single or multiple Diagnosis Code(s): - R11.2, Nausea with vomiting, unspecified - Z98.84, Bariatric surgery status - K31.89, Other diseases of stomach and duodenum - K21.01, Gastro-esophageal reflux disease with esophagitis, with bleeding CPT(R) - 2023 copyright [employer]. All Rights Reserved. The CPT codes, CCI edits and ICD codes generated are intended as suggestions and were generated based on input data. These codes are preliminary and upon braille coder review may be revised to meet current compliance and payer requirements. The provider is responsible for the final determination of appropriate codes, and modifiers. Santiago Richardson MD This document has been electronically signed. Note Initiated:03/02/2025 Note Completed:03/02/2025 2:30 PM \\[id number]
--- NOTE | 2025-03-02 14:36 | Anesthesiology Progress Note ---
Date of Service March 02, 2025 Anesthesia Post Procedure Vital Signs Vital Signs: Temp Pulse Pulse Resp BP Pulse Ox O2 Del Method 03/02/25 13:20 153/108 H 03/02/25 13:08 36.6 C 72 16 159/108 H 98 Room Air 03/02/25 08:10 36.9 C 80 14 158/92 H 95 Room Air 03/01/25 23:15 36.6 C 71 16 143/92 H 98 Room Air Pain Intensity Bilateral Abdomen: Pain Intensity: 8 Left Flank: Pain Intensity: 5 Transfer of Care Handoff Completed per policy Notes Mental Status: alert / awake / arousable Patient Amnestic to Procedure: Yes Nausea / Vomiting: adequately controlled Pain: adequately controlled Airway Patency, RR, SpO2: stable & adequate BP & HR: stable & adequate Hydration State: stable & adequate Anesthetic Complications: no major complications apparent and Pt Satisfied with anesthetic care
--- NOTE | 2025-03-02 15:39 | Surgery Consultation ---
Date of Consultation March 02, 2025 Assessment & Plan (1) Nausea & vomiting: This is a 44yF with a PMH of metastatic colon ca, history of gastric bypass, PE on eliquis, who presents to the [facility] ED on 02/24/25 with complaints of nausea/vomiting. Patient states she has been vomiting daily since february. 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 Velasquez on 02/04/24 of last year for presumed perforated diverticulitis. However, pathology returned + for adenocarcinoma. Since her surgery here she has been to [facility] where did undergo another surgery where they tried to remove all the cancer from her liver and performed a hysterectomy. She did have intra-abdominal abscess after this managed with abx,now completed. She has had SBO since then all managed conservatively without NGT. In the ER this admission she did undergo a CT a/p that shows some mildly dilated loops of jejunum without obvious bowel obstruction She was admitted to the hospitalist service and GI was consulted. They performed an EGD today and showed erythematous mucosa in the stomach (biopsied), esophagitis, and bilious fluid in the esophagus with question of this being related to a partial obstruction. Currently patient denies much pain. Her nausea comes and goes so at the moment it is controlled. She just emptied her ostomy bag. Per hospitalist note there is some concern for cancer recurrence. She will follow up with PET scan and with her [facility] cancer group upon discharge. Today labs show WBC 9.8, Hbg 7.2, Cr 0.5. Vitals stable, she is requiring supplemental O2. On exam abdomen soft, non tender, non distended. Ostomy is viable, pt just emptied bag but there is some liquid green output noted. Given her nausea/vomiting, KUB yesterday with small bowel distention, and concern per GI for partial SBO on EGD we will obtain further workup with a CT a/p with oral and IV contrast to better delineate possible SBO. Thankfully ostomy appears to be functioning some for her so at least not a full obstruction. If symptoms were to worsen would place NGT for decompression. Appreciate medicine assistance and trailing of different medications for her symptoms, palliative has assisted with symptom management in the past as well earlier this month . We have no plans for surgical intervention at this time and if required it would consider transfer back to [facility] for oncologic surgeon if indicated. (2) Partial small bowel obstruction: History of Present Illness Attending Physician: Cr Davidson MD History of Present Illness This is a 44yF with a PMH of metastatic colon ca, history of gastric bypass, PE on eliquis, who presents to the [facility] ED on 02/24/25 with complaints of nausea/vomiting. Patient states she has been vomiting daily since february. Sometimes her ostomy will put out stool daily other times it takes a couple of days. Of note she underwent a laparoscopic colon resection, washout and creation of colostomy with Dr. Velasquez on 02/04/24 of last year for presumed perforated diverticulitis. However, pathology returned + for adenocarcinoma. She since has had a port placed, last used in September for chemotherapy. She is set for a PET/CT scan next week with follow up with heme/onc for further recommendations. Since her surgery here she has been to [facility] where did undergo another surgery where they tried to remove all the cancer from her liver and performed a hysterectomy. She did have intra-abdominal abscess after this managed with abx,now completed. She has had SBO since then all managed conservatively without NGT. In the ER this admission she did undergo a CT a/p that shows some mildly dilated loops of jejunum without obvious bowel obstruction She was admitted to the hospitalist service and GI was consulted. They performed an EGD today and showed erythematous mucosa in the stomach (biopsied), esophagitis, and bilious fluid in the esophagus with question of this being related to a partial obstruction. Currently patient denies much pain. Her nausea comes and goes so at the moment it is controlled. She just emptied her ostomy bag. Allergies Allergy/AdvReac Type Severity Reaction Status Date / Time oxaliplatin Allergy Intermediate "HOT & Verified 02/27/25 00:23 ITCHY" IMMEDIATELY vancomycin Allergy Intermediate "HOT & Verified 02/27/25 00:23 ITCHY" IMMEDIATELY Home Medications Medication Instructions Recorded Confirmed Type apixaban 5 mg tablet (Eliquis) 5 mg PO BID 02/02/25 02/27/25 History buspirone 10 mg tablet 10 mg PO BID 02/02/25 02/27/25 History escitalopram oxalate 20 mg tablet 20 mg PO DAILY 02/02/25 02/27/25 History famotidine 20 mg tablet 20 mg PO BID 02/02/25 02/27/25 History lorazepam 0.5 mg tablet 0.5 mg PO TID PRN Anxiety 02/02/25 02/27/25 History pregabalin 50 mg capsule 50 mg PO BID #30 caps 02/06/25 02/27/25 Rx hydromorphone 4 mg tablet 4 mg PO Q4H PRN severe cancer pain 02/18/25 02/27/25 Rx (Dilaudid) 1 month #180 tabs ondansetron 8 mg disintegrating 8 mg PO Q8H PRN Nausea 02/24/25 02/27/25 History tablet methocarbamol 500 mg tablet 1,000 mg PO QID PRN NEEDED PER 02/27/25 02/27/25 History PT Patient History Medical History Nausea & vomiting Small bowel obstruction Peritonitis Abdominal pain Acute diverticulitis History of Clostridium difficile infection diagnosed 02/09/24 while admitted in hospital - treated with Vancomycin until 02/27/24 Colostomy present done 02/04/24 stoma revised 02/06/24 with an additional 4.5cm of the colon removed History of diverticulitis history of multiple flares over the past year Hx of deep venous thrombosis (2010) - s/p childbirth in 2010- was on blood thinner for short time - no DVT noted with PE on 02/16/24 Hx of migraines History of panic attacks History of pulmonary embolism dx 02/16/24 at [facility]>started on Eliquis provoked by malignancy and surgical intervention per records dopplers negative for DVT Adenocarcinoma of colon dx'ed 01/2024 Perforated sigmoid colon - 02/03/24 due to enlarging mass (adenocarcinoma of the colon) - 02/04/24 underwent partial left colon resection and end colostomy Depression with anxiety Surgical History Hx of hysterectomy Port-A-Cath in place (03/13/24) Insertion of Access Port with Fluoroscopy into Right Internal Jugular Vein(Right) - Elizabeth Velasquez DO [place] teeth removed H/O abdominal surgery (02/05/24) Exploratory Laparoscopy Revision of Colostomy and Stoma(Not Applicable) - Elizabeth Velasquez DO History of x 2 H/O gastric sleeve (2021) History of colon resection (02/04/24) p Diagnostic Laparoscopy, with a laparoscopic colon resection, Abdominal Wash Out, Creation Colostomy(Not Applicable) - Elizabeth Velasquez DO Extensive lysis of adhesions Family History Other No family history of adverse response to anesthesia Social History Smoking Status: Never smoker Second Hand Exposure: No; Do You Dip or Chew Tobacco: No; Hx Alcohol Use: No Hx Substance Use: No Preferred Language: Libyan Communication Ability: Effective Visual Impairment: No Limitations Curing Finisher Required: No Beliefs That Will Affect Care: None Current Living Situation: Spouse Current Living Situation Comment: Home Feels Safe at Home: Yes Assistive Devices: None Review of Systems Constitutional: no fever and no chills Gastrointestinal: + abdominal pain, + nausea and + vomitin g mix of liquid vs more formed stool Physical Exam Physical Exam: awake, no distress Respiratory: on 4L nasal cannula, no respiratory distress Gastrointestinal (Abdomen): Percussion/Palpation: abdomen soft; abdomen nontender + ostomy viable, with green liquid stool in bag Results & Data Vital Signs (Past 12 Hours) Vital Signs Temp Pulse Resp BP Pulse Ox O2 Del Method O2 Flow Rate 03/02/25 15:00 76 16 153/99 H 95 Nasal Cannula 4 03/02/25 14:45 78 16 140/88 96 Nasal Cannula 4 03/02/25 14:30 87 20 126/88 93 Nasal Cannula 4 03/02/25 13:20 153/108 H 03/02/25 13:08 97.9 F 72 16 159/108 H 98 Room Air 03/02/25 08:10 98.4 F 80 14 158/92 H 95 Room Air Diagnostic Findings EXAM: CT abd pelvis IV con only CLINICAL HISTORY: N/V, generalized abd pain TECHNIQUE: Contiguous axial images were obtained from the level of the diaphragm to the pubic symphysis with intravenous contrast. Coronal and sagittal reconstructions were likewise performed and indicated to increase the sensitivity for detecting clinically relevant pathology. If IV contrast material had not been administered, the likelihood of detecting abnormalities relevant to the patient's condition would have been substantially decreased. CT scan was performed according to ALARA (as low as reasonably achievable). 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 The liver appears enlarged in size and shows multiple ill-defined hypodense lesions are noted in both lobes - largest measures about 32 x 30 mm.- possibility of neoplastic etiology/metastasis likely. There is no intra or extrahepatic biliary ductal dilatation. Hepatic vasculature is patent. The gallbladder is present. The spleen, pancreas, and adrenal glands are unremarkable. The kidneys are normal in size and attenuation. DJ stent seen in-situ on right side. Mild left sided hydronephroureterosis The ureters are normal in caliber and no ureteral calculi are seen. The bladder is normal in contour. Pelvic viscera are unremarkable. No focal or diffuse bowel wall thickening or evidence of bowel obstruction is identified. No imaging evidence of appendicitis. Abdominal and pelvic vasculature is patent. No adenopathy or fluid collections are seen. No aggressive appearing osseous lesions are identified. Right lower quadrant ileostomy /colostomy status. Focal ill-defined mesenteric fat stranding/thickening is noted involving right lower quadrant- sequelae of prior inflammatory changes likely. Mild adjacent clumped bowel loops are also seen. Fluid filled mildly dilated jejunal loops are noted involving left upper quadrant with diameter measures up to 5 cm. However, no obvious bowel obstruction seen. 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 Mild right and minimal left pleural effusion with basal subsegmental collapse of both lower lobes are seen.-reduced 2. Hepatomegaly with multiple hepatic lesion as described - possibility of neoplastic etiology/metastasis likely.--stable. 3. Right lower quadrant ileostomy /colostomy status.-stable. 4. Focal ill-defined mesenteric fat stranding/thickening is noted involving right lower quadrant- sequelae of prior inflammatory changes likely. Mild adjacent clumped bowel loops are also seen.- post oral contrast evaluation is suggested.-stable. 5. Fluid filled mildly dilated jejunal loops are noted involving left upper quadrant with diameter measures up to 5 cm. However, no obvious bowel obstruction seen.-stable. 6. 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 7. DJ stent seen in-situ on right side.-stable. 8. Mild left sided hydronephroureterosis.-stable. 9. Mild ascites noted in perisplenic space-stable. 10. No other new interval abnormality since prior study. Electronically signed by Sudeep Dunlap 02-27-2025 01:45 AM KUB HISTORY: persistant hicupps COMPARISON STUDY: 02/27/2025 FINDINGS: Stable IVC filter. Bilateral ureteral stents appear grossly well- positioned. There is mild retained stool. There are a few mildly distended small bowel loops at the left upper quadrant measuring up to 3.5 cm, grossly stable. No colonic distention seen. No gross free air. IMPRESSION: Grossly stable mild small bowel distention. ACT 112: Negative or not required by law. The above report was generated using voice recognition software. It may contain grammatical, syntax or spelling errors. Electronically signed by: Ricardo Green M.D. 03/01/2025 10:06 AM PG Care Time/CCT Total # of Minutes Spent Total Time Spent with Patient: Total time spent is greater than 50% in coordination of care (as documented) at patient's floor/unit and/or counseling patient: Coding Level of Care Code 04705 IN/OBS CONSULT LVL 2,35M Diagnoses Nausea & vomiting R11.2 Partial small bowel obstruction K56.600
[2025-03-02] MEDS: PROPOFOL IV EMULSION 10 MG/ML 20 ML VIAL IV ONE ×2 (15:50)
[2025-03-02] MEDS: LIDOCAINE 2% 2 ML VIAL/AMP(20MG/ML) INFIL ONE (15:50)
[2025-03-02] MEDS: POTASSIUM CHLORIDE / WTR 10 MEQ/100 ML PLCT IV SCH (16:30)
[2025-03-02] MEDS: OPTIRAY 320 100ml IV ONE (18:31)
--- NOTE | 2025-03-02 19:49 | CT Scan Report ---
CT ABDOMEN and PELVIS with INTRAVENOUS CONTRAST HISTORY: Abdominal pain TECHNIQUE: CT abdomen and pelvis with contrast. IV CONTRAST: 100 mL of OMNIPAQUE 300 ENTERIC CONTRAST: Not Given COMPARISON: CT abdomen and pelvis February 26, 2025 FINDINGS: LOWER CHEST: New multifocal pneumonia in the included lung bases involving the lingula and bilateral lower lobes. Small right greater than left pleural fluids are similar to previous LIVER: Redemonstrated numerous hepatic lesions and masses measuring up to 4.5 cm. GALLBLADDER/BILIARY: Unremarkable gallbladder. No abnormal biliary dilatation. SPLEEN: Unremarkable. PANCREAS: Unremarkable. ADRENALS: Unremarkable. KIDNEYS: Interval placement of a left-sided internalized ureteral stent with resolution of the previously present hydroureteronephrosis. Right sided internalized ureteral stent is again seen. Cortical cysts. No stones or hydronephrosis identified. Ill-defined transcortical hypoattenuations are suggested in the renal parenchyma, especially in the right kidney. Recommend correlation with possible pyelonephritis PERITONEUM/RETROPERITONEUM. Mild enlarged portacaval lymph nodes. No aortic aneurysm. IVC filter. Small ascites appears similar to previous. GASTROINTESTINAL: No obstruction. Redemonstrated postoperative changes of sleeve gastrectomy and multiple bowel resections. Loop ileostomy is again seen in the right lower quadrant. There are multiple loops of small bowel that are moderately distended with fluid and gas. There is a suggestion of transition point in the left lower quadrant of the abdomen around series 2, image 55. In this area, there is matted appearance of the multiple loops of small bowel closely approximating the anterior abdominal wall fascia whether there are postsurgical changes, indicative of adhesions. REPRODUCTIVE: Status post hysterectomy. Likely left adnexal cystic structure seen in the left paracolic gutter (series 2, image 44) URINARY BLADDER: There are layering hyperdense materials within the lumen of the urinary bladder (series 2, image 72 for example) that are new from the previous examination 4 days ago. Small intraluminal air is also present. BONES: No acute findings. IMPRESSION: New multifocal pneumonia in the included lung bases involving the lingula and bilateral lower lobes. Multiple loops of small bowel are moderately distended with fluid and gas with a suggested transition point in the left lower quadrant of the abdomen where there are extensive postoperative adhesions. Small bowel obstruction is suspected. Please clinically correlate. Extensive postsurgical changes are redemonstrated as above. Multiple ill-defined hepatic lesions and masses are again seen, compatible with metastatic disease Interval placement of a left-sided internalized ureteral stent with resolution of the previously present hydroureteronephrosis. NEW layering hyperdense materials within the lumen of the urinary bladder. These are likely blood products and may be postprocedural in nature given interval placement of a left-sided ureteral stent Ill-defined transcortical hypoattenuations are suggested in the renal parenchyma, especially in the right kidney. Recommend correlation with possible pyelonephritis Electronically signed by Maximo Khalil 03-02-2025 7:48 PM
[2025-03-02 20:54] LABS: Hematocrit (blood only) 27.0 % (37.0-47.0); Hemoglobin 8.3 g/dL (12.0-16.0)
[2025-03-02] MEDS: PANTOprazole 40 MG/10 ML SYR IV SCH (21:18)
[2025-03-02 21:25] LABS: Partial Thromboplastin Time 23 Seconds (21-31)
[2025-03-03 06:15] LABS: Hematocrit (blood only) 25.7 % (37.0-47.0); Hemoglobin 7.9 g/dL (12.0-16.0); Immature Granulocytes # (auto) 0.06 K/uL (0.01-0.20); Immature Granulocytes % (auto) 0.5 %; Mean Corpuscular Hemoglobin 24.5 pg (25.0-34.0); Mean Corpuscular Volume 79.8 fL (80.0-100.0); Platelet Count 235 K/uL (130-400); RDW Standard Deviation 53.8 fL (36.4-46.3); Red Blood Count 3.22 M/uL (4.20-5.40); White Blood Count 11.92 K/ul (4.8-10.8)
[2025-03-03 06:34] LABS: Anion Gap 11.0 (3-11); Blood Urea Nitrogen 11.0 mg/dl (6-23); Calcium 7.9 mg/dl (8.6-10.3); Carbon Dioxide 21.0 mmol/L (21-32); Chloride 110.0 mmol/L (98-107); Creatinine Clr Calc Pharmacy 116.5 ml/min; Glucose 93.0 mg/dl (70-99(Fasting)); Potassium 3.3 mmol/L (3.5-5.1); Sodium 142.0 mmol/L (136-145)
[2025-03-03 07:19] LABS: Polychromasia 1+
[2025-03-03] MEDS: CEFEPIME 2000MG 2,000 MG/20 ML SYR IV SCH (09:05)
--- NOTE | 2025-03-03 09:56 | Gastroenterology Progress Note ---
Date of Service March 03, 2025 Assessment & Plan (1) Nausea & vomiting: Plan: 44 year old female w/ history of metastatic colon adenocarcinoma to the liver and peritoneum, perforated diverticulitis/adenocarcinoma s/p colostomy, PE on Eliquis, C diff s/p treatment, anxiety, depression, ELIJAH and others below admitted w/ nausea/vomiting. S/P EGD w/ evidence of sleeve gastrectomy characterized by healthy appearing mucosa, Bilious gastric fluid, erythematous mucosa in the stomach, LA Grade D reflux esophagitis with bleeding In light of the large amount of retained fluid in the stomach and esophagus at least some degree of partial obstruction suspected likely related to overall tumor burden. CTAP yesterday revealed SBO. Continue twice daily PPI. Continue antiemetics. Appreciate general surgery consultation for management of SBO. Recall GI as needed. I spent a total of 40 minutes on the date of service in review of patient's record, and previously obtained information in person and appropriate medical visit, discussion and education of plan, with patient and/or caregiver, placing orders for tests/referral/procedures as medically necessary and documentation of pertinent clinical information in patient's medical records for their visit today. Admission and Anticipated Discharge Date Admission Date: February 27, 2025 Subjective Ongoing discomfort, nausea. EGD 2024: Normal examined duodenum. - A sleeve gastrectomy was found, characterized by healthy appearing mucosa. - Bilious gastric fluid. Fluid aspiration performed. - Erythematous mucosa in the stomach. Biopsied. - LA Grade D reflux esophagitis with bleeding. Biopsied. - Bilious fluid in the esophagus. Fluid aspiration performed. - Normal mid esophagus. Biopsied. - In light of the large amount of retained fluid in the stomach and esophagus at least some degree of partial obstruction motility is suspected likely related to overall tumor burden. Review of Systems Review of Systems: All other findings negative except as noted in HPI. Physical Exam Constitutional: WD/WN, vitals as above Respiratory: normal respiratory effort Cardiovascular: Rate/Rhythm: regular rate Gastrointestinal (Abdomen): Percussion/Palpation: + abdomen tender and abdomen soft Skin: no rashes, warm and dry Results & Data Results & Data Vital Signs (Past 12 Hours) Vital Signs Temp Pulse Resp BP Pulse Ox O2 Del Method 03/03/25 07:55 97.7 F 77 16 148/94 H 95 Room Air 03/02/25 23:48 98.6 F 91 H 18 141/97 H 93 Room Air Laboratory Results 03/03/25 03/02/25 03/02/25 Range/Units 05:43 20:29 09:55 WBC 11.92 H 9.83 (4.8-10.8) K/ul RBC 3.22 L 2.90 L (4.20-5.40) M/uL Hgb 7.9 L 8.3 L 7.2 L (12.0-16.0) g/dL Hct 25.7 L 27.0 L 23.6 L (37.0-47.0) % MCV 79.8 L 81.4 (80.0-100.0) fL MCH 24.5 L 24.8 L (25.0-34.0) pg MCHC 30.7 L 30.5 L (32.0-36.0) g/dL RDW Std Deviation 53.8 H 55.4 H (36.4-46.3) fL RDW Coeff of Mita 18.6 H 18.4 H (11.5-14.5) % Plt Count 235 275 (130-400) K/uL MPV 9.5 10.0 (9.4-12.4) fL Immature Gran % (Auto) 0.5 0.8 % Neut % (Auto) 84.9 81.6 % Lymph % (Auto) 7.7 8.2 % Coke % (Auto) 5.8 7.2 % Eos % (Auto) 1.0 2.2 % Baso % (Auto) 0.1 0.0 % Neut # (Auto) 10.12 H 8.01 H (1.40-6.50) K/uL Lymph # (Auto) 0.92 L 0.81 L (1.20-3.40) K/uL Coke # (Auto) 0.69 H 0.71 H (0.11-0.59) K/uL Eos # (Auto) 0.12 0.22 (0.00-0.50) K/uL Baso # (Auto) 0.01 0.00 (0.00-0.20) K/uL Immature Gran # (Auto) 0.06 0.08 (0.01-0.20) K/uL Polychromasia 1+ 1+ APTT 23 (21-31) Seconds PTT Ratio 0.8 Sodium 142 143 (136-145) mmol/L Potassium 3.3 L 3.0 L (3.5-5.1) mmol/L Chloride 110 H 112 H (98-107) mmol/L Carbon Dioxide 21 23 (21-32) mmol/L Anion Gap 11 8 (3-11) BUN 11 10 (6-23) mg/dl Creatinine 0.59 L 0.53 L (0.6-1.2) mg/dl Est Cr Clr Drug Dosing 116.5 129.6 ml/min eGFR 114.61 117.61 BUN/Creatinine Ratio 18.6 18.9 (10-20) Glucose 93 99 (70-99(Fasting)) mg/dl Calcium 7.9 L 7.7 L (8.6-10.3) mg/dl Blood Type A Positive Antibody Screen NEGATIVE PG Care Time/CCT Total # of Minutes Spent Total Time Spent with Patient: Total time spent is greater than 50% in coordination of care (as documented) at patient's floor/unit and/or counseling patient: Coding Level of Care Code 02030 SUB INP/OBS CARE 2/35MIN Diagnoses Nausea & vomiting R11.2
[2025-03-03] MEDS: LACTATED RINGER'S 1,000 ML IV SCH (10:05)
[2025-03-03] MEDS: POTASSIUM CHLORIDE / WTR 10 MEQ/100 ML PLCT IV SCH (10:05)
--- NOTE | 2025-03-03 10:25 | Surgery Progress Note ---
Date of Service March 03, 2025 Assessment & Plan (1) Partial small bowel obstruction: Plan: Her CT images and results were personally viewed and interpreted by myself Upon talking to the patient, this is likely an acute on chronic situation with regards to her bowel obstruction as she has been having symptoms over the last month She was unable to tolerate the oral contrast would have been beneficial to see if she is truly obstructed She is having ostomy output Will keep her n.p.o. for the next day or so to see if she improves She would not be a surgical candidate at this facility due to her complexity Surgery will follow Admission and Anticipated Discharge Date Admission Date: February 27, 2025 Subjective Patient seen and examined. She was unable to tolerate the oral contrast yesterday. She is having ostomy output. Denies any increased abdominal pain. Review of Systems Constitutional: no fever and no chills Eyes: no blind spots and no corrective lenses Respiratory: no cough and no dyspnea Cardiovascular: no chest pain and no dyspnea on exertion Gastrointestinal: + nausea, + vomiting and + change in bow el habits; no abdominal pain Integumentary: no acne and no lesions Psychiatric: no behavioral changes and no depression Physical Exam Constitutional: WD/WN, vitals as above Eyes: PERRL, conjunctivae normal, anicteric sclerae Respiratory: normal respiratory effort, lungs clear to auscultation Cardiovascular: RRR, no murmur, no edema Gastrointestinal (Abdomen): Soft, minimal tenderness to palpation, right lower quadrant with bilious output Skin: no rashes, warm and dry Psychiatric: A+Ox3, euthymic affect Results & Data Vital Signs (Past 12 Hours) Vital Signs Temp Pulse Resp BP Pulse Ox O2 Del Method 03/03/25 07:55 36.5 C 77 16 148/94 H 95 Room Air 03/02/25 23:48 37.0 C 91 H 18 141/97 H 93 Room Air PG Care Time/CCT Total # of Minutes Spent Total Time Spent with Patient: Total time spent is greater than 50% in coordination of care (as documented) at patient's floor/unit and/or counseling patient: Coding Level of Care Code 25245 SUB INP/OBS CARE 05/02MIN Diagnoses Partial small bowel obstruction K56.600
--- NOTE | 2025-03-03 15:18 | Hospitalist Progress Note ---
Date of Service March 03, 2025 Assessment & Plan (1) Abdominal pain: Plan: 44-year-old female with past medical history significant for metastatic colon adenocarcinoma mets to liver and peritoneum, perforated diverticulitis/adenocarcinoma status post colostomy, pulm embolism on Eliquis, C. difficile s/p treatment, anxiety and depression, iron deficiency anemia presents with abdominal pain. Patient is having ongoing pain for several weeks now. This is her third admission since last 1 month. Patient is status post right ureteral stent on and supposed to follow-up outpatient for stent removal. She was on Bactrim and amoxicillin for postop hepatic abscess, says no longer on antibiotics. She was again admitted 06 of February for small bowel obstruction and was discharged on 02/08/2025. Patient is followed with palliative care. Currently on p.o. Dilaudid 4 mg every 3 hours as needed for pain. Patient says Dilaudid is causing her nauseous. States abdominal pain is not getting better. She is having a lot of nausea and vomiting. She says not eating because of nausea. She is being managed for the following: Partial SBO: Patient presents with abdominal pain and persistent nausea and vomiting with decreased p.o. intake. Metastatic colon cancer Patient presents with abdominal pain, nausea, vomiting, decreased p.o. intake. Status post EGD 03/02, large amount of retained fluid in the stomach and esophagus noted suggestive of partial obstruction. LA grade D reflux esophagitis with bleeding noted. Biopsies were taken----> follow-up on biopsy results. Status post CTAP with IV contrast 03/02: Noted multifocal pneumonia in the lung bases bilaterally. Noted small bowel obstruction. Noted findings concerning for possible right pyelonephritis. Per prior attending: Patient's surgical oncologist Dr. Johnson reached out on March 01, 2025. I provided update on patient's current condition. He reports that unfortunately patient does have recurrence of colon cancer given elevated tumor markers. The initial plan was reversal of the colostomy- which will be kept on hold for the time being as it will delay patient to obtain chemotherapy. He also asked me to discuss with patient if she wants to follow- up with local oncology for chemotherapy. I updated the patient about my discussion with her surgical oncologist on March 02, 2025; she verbalized understanding. She wants to follow-up at [facility] oncology. She reports that PET/CT is still not done yet; would like to follow-up with them to have it done. Pt w/ persistent nausea and vomiting likely iso pSBO. Continue on Compazine, Zofran and Phenergan as needed for nausea/vomiting. DC zyprexa as pt not taking/also risk of QT prolongation given fluconazole and zofran use. GI on board, appreciate eval. General surgery on board, plan for n.p.o. for now, will follow ongoing recommendation. Continue with PPI. and multivitamins with minerals, IV thiamine, IV folic acid. Continue with D5 half NS. Monitor and replete electrolytes. Potassium replaced today. Acute UTI/ Possible right pyelonephritis Abdominal pain, hydroureteronephrosis Pt presents with abdominal pain mostly on left. Of note, patient recently presented with right-sided abdominal pain status post right ureteral stent placement February 03, 2025 with improvement in the pain. Admitting CTAP with mild left-sided hydronephroureterosis Patient underwent cystoscopy with left ureteral stent placement February 08, 2025, reports improvement in her left abdominal pain. Urine culture grew Salma multiple times, given recent ureteral procedure; pt started on fluconazole for candiduria. Plan to treat for 2 weeks. Monitor EKG. Follow-up with urology upon discharge. Multifocal pneumonia: concern for mutlifocal pna on lung bases noted on 03/02 CTAP with IV contrast. Patient denies cough or sore throat. Started cefepime 03/03, plan for 5 to 7 days of treatment. Recommend repeat CT chest in about 6 weeks time to document resolution of pneumonia. Anemiahemoglobin about 8, s/p EGD - see above, c/w iv ppi. History of PE: On Eliquis- resumed after EGD, now on hep drip as pt not able to take po. Anxiety and depression: On Lexapro, BuSpar and Ativan as needed. Resume once patient is able to take p.o. GERD: on protonix-continue DVT prophylaxis: On Heparin drip Disposition: Medical floor Full code. Please note the above document was generated using voice recognition software. It may contain grammatical, syntax or spelling errors. Any formal questions or concerns about the content, text or information contained within the body of this dictation should be directly addressed to the provider for clarification Admission and Anticipated Discharge Date Admission Date: February 27, 2025 Subjective Patient seen and examined. Patient reports ongoing nausea, vomiting/dry heaves. Reports improvement in abdominal pain. Reports improving ostomy output. Updated patient of the finding of multifocal pneumonia noted on CTAP. Physical Exam Physical Exam: Constitutional: on RA, NAD. Respiratory: Bilateral occ rales Cardiovascular: RRR, no murmur, no edema Vessels: no JVD or carotid bruit Chest: normal inspection of chest Abdomen: soft, mild epigastric tender. colostomy bag with greenish output Musculoskeletal: no cyanosis or clubbing, extremities motor strength 5/5 Skin: no rashes, warm and dry normal turgor Neurologic: PERRL, EOMI, accommodation nl, no face palsy, no dysarthria CN's II- XI intact bilaterally and moves all extremities Results & Data Results & Data Vital Signs (Past 12 Hours) Vital Signs Temp Pulse Resp BP Pulse Ox O2 Del Method 03/03/25 07:55 36.5 C 77 16 148/94 H 95 Room Air
[2025-03-03] MEDS: Heparin IV Adult Wt-Based Low-Dose *NO* INITIAL Bolus Protocol IV STA (15:52)
[2025-03-03] MEDS: FOLIC ACID 1 MG in SYRINGE 9.8 ML IV STA (16:20)
[2025-03-03] MEDS: THIAMINE HCL 200 MG in SODIUM CHLORIDE 0.9% 50 ML IV STA (16:20)
[2025-03-03] MEDS: HEPARIN 25000 UNIT/500 ML D5W 25,000 UNITS/500 ML BAG IV SCH (16:25)
[2025-03-03] MEDS: D5W AND 1/2NSS 1,000 ML IV SCH (16:27)
[2025-03-03 16:42] LABS: Hematocrit (blood only) 24.4 % (37.0-47.0); Hemoglobin 7.3 g/dL (12.0-16.0); Immature Granulocytes # (auto) 0.05 K/uL (0.01-0.20); Immature Granulocytes % (auto) 0.4 %; Mean Corpuscular Hemoglobin 23.7 pg (25.0-34.0); Mean Corpuscular Volume 79.2 fL (80.0-100.0); Platelet Count 191 K/uL (130-400); RDW Standard Deviation 53.3 fL (36.4-46.3); Red Blood Count 3.08 M/uL (4.20-5.40); White Blood Count 11.46 K/ul (4.8-10.8)
[2025-03-03 17:12] LABS: INR 1.3 (0.9-1.1); Partial Thromboplastin Time 25 Seconds (21-31); Prothrombin Time 13.5 Seconds (9.0-12.0)
[2025-03-03 17:14] LABS: Ovalocytes 1+; Polychromasia 1+; Tear Drop Cells 1+
[2025-03-03] MEDS: ALUMINUM/MAGNESIUM/SIMETH (MAALOX MAX) 30 ML UDC PO STA (23:17)
[2025-03-03 23:50] LABS: ANTI-Xa, UFH(UnfractionatedHep 0.10 IU/ml (0.3-0.7)
[2025-03-04] MEDS ORDERED: Nursing to Pharmacy Communication SCH (00:15)
[2025-03-04] MEDS: HEPARIN SOD (PORCINE) 1000 UNIT/ML IV ONE (00:36)
[2025-03-04] MEDS: ACETAMINOPHEN 1,000 MG/100 ML VIAL IV STA (04:08)
[2025-03-04 07:22] LABS: Hematocrit (blood only) 22.6 % (37.0-47.0); Hemoglobin 7.1 g/dL (12.0-16.0); Mean Corpuscular Hemoglobin 24.7 pg (25.0-34.0); Mean Corpuscular Volume 78.7 fL (80.0-100.0); Platelet Count 211 K/uL (130-400); RDW Standard Deviation 53.1 fL (36.4-46.3); Red Blood Count 2.87 M/uL (4.20-5.40); White Blood Count 12.06 K/ul (4.8-10.8)
[2025-03-04 07:49] LABS: ANTI-Xa, UFH(UnfractionatedHep 0.53 IU/ml (0.3-0.7)
[2025-03-04 08:07] LABS: Anion Gap 9.0 (3-11); Blood Urea Nitrogen 16.0 mg/dl (6-23); Calcium 7.8 mg/dl (8.6-10.3); Carbon Dioxide 22.0 mmol/L (21-32); Chloride 108.0 mmol/L (98-107); Creatinine Clr Calc Pharmacy 92.8 ml/min; Glucose 106.0 mg/dl (70-99(Fasting)); Magnesium 1.3 mg/dl (1.7-2.4); Potassium 3.2 mmol/L (3.5-5.1); Sodium 139.0 mmol/L (136-145)
[2025-03-04] MEDS: HYDROmorphone INJ 0.5 MG/0.5 ML SYR IV PRN (09:33)
[2025-03-04] MEDS: MAGNESIUM SULFATE / D5W 1 GM/100 ML BAG IV SCH (09:34)
[2025-03-04] MEDS: POTASSIUM CHLORIDE / WTR 10 MEQ/100 ML PLCT IV SCH (09:34)
[2025-03-04] MEDS: FOLIC ACID 1 MG in SYRINGE 9.8 ML IV SCH (09:34)
[2025-03-04] MEDS: CEROVITE ADV FORMULA TAB PO SCH (09:35)
[2025-03-04] MEDS: THIAMINE HCL 200 MG in SODIUM CHLORIDE 0.9% 50 ML IV SCH (09:35)
--- NOTE | 2025-03-04 11:29 | Surgery Progress Note ---
Date of Service March 04, 2025 Assessment & Plan (1) Partial small bowel obstruction: Plan: She is having ostomy output I think she could trial clear liquids today, but states she does not want to try until tomorrow She would not be a surgical candidate at this facility due to her complexity Surgery will follow Admission and Anticipated Discharge Date Admission Date: February 27, 2025 Subjective Patient seen and examined. Having ostomy output. Still with nausea and emesis. Afebrile. Review of Systems Constitutional: no fever and no chills Eyes: no blind spots and no corrective lenses Respiratory: no cough and no dyspnea Cardiovascular: no chest pain and no dyspnea on exertion Gastrointestinal: + nausea, + vomiting and + change in bow el habits; no abdominal pain Integumentary: no acne and no lesions Psychiatric: no behavioral changes and no depression Physical Exam Constitutional: WD/WN, vitals as above Eyes: PERRL, conjunctivae normal, anicteric sclerae Respiratory: normal respiratory effort, lungs clear to auscultation Cardiovascular: RRR, no murmur, no edema Gastrointestinal (Abdomen): Soft, nontender, right lower quadrant ostomy with bilious output Skin: no rashes, warm and dry Psychiatric: A+Ox3, euthymic affect Results & Data Vital Signs (Past 12 Hours) Vital Signs Temp Pulse Resp BP Pulse Ox O2 Del Method O2 Flow Rate 03/04/25 07:32 36.9 C 80 18 151/103 H 97 Room Air 03/03/25 23:39 36.9 C 80 16 100 Nasal Cannula 2 PG Care Time/CCT Total # of Minutes Spent Total Time Spent with Patient: Total time spent is greater than 50% in coordination of care (as documented) at patient's floor/unit and/or counseling patient: Coding Level of Care Code 12752 SUB INP/OBS CARE 05/02MIN Diagnoses Partial small bowel obstruction K56.600
--- NOTE | 2025-03-04 11:56 | Electrocardiogram Report ---
Test Reason : Blood Pressure : */* mmHG Vent. Rate : 79 BPM Atrial Rate : 79 BPM P-R Int : 130 ms QRS Dur : 82 ms QT Int : 352 ms P-R-T Axes : -69 8 20 degrees QTcB Int : 403 ms Unusual P axis and short [place], probable junctional tachycardia Abnormal ECG When compared with ECG of 26-Feb-2025 23:13, Junctional rhythm has replaced Sinus rhythm Confirmed by Reynaldo Cash ([id number]) on 03/04/2025 11:56:11 AM Referred By: REFERRED SELF Confirmed By: Reynaldo Cash
[2025-03-04 11:58] LABS: Hematocrit (blood only) 24.8 % (37.0-47.0); Hemoglobin 7.7 g/dL (12.0-16.0); Immature Granulocytes # (auto) 0.08 K/uL (0.01-0.20); Immature Granulocytes % (auto) 0.7 %; Mean Corpuscular Hemoglobin 24.4 pg (25.0-34.0); Mean Corpuscular Volume 78.5 fL (80.0-100.0); Platelet Count 220 K/uL (130-400); RDW Standard Deviation 52.0 fL (36.4-46.3); Red Blood Count 3.16 M/uL (4.20-5.40); White Blood Count 12.14 K/ul (4.8-10.8)
[2025-03-04 12:32] LABS: Microcytosis Present; Ovalocytes 1+; Polychromasia 1+; Tear Drop Cells 1+
--- NOTE | 2025-03-04 13:51 | Hospitalist Progress Note ---
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 difficile s/p treatment, anxiety and depression, iron deficiency anemia presents with abdominal pain. Patient is having ongoing pain for several weeks now. This is her third admission since last 1 month. Patient is status post right ureteral stent on and supposed to follow-up outpatient for stent removal. She was on Bactrim and amoxicillin for postop hepatic abscess, says no longer on antibiotics. She was again admitted 06 of February for small bowel obstruction and was discharged on 02/08/2025. Patient is followed with palliative care. Currently on p.o. Dilaudid 4 mg every 3 hours as needed for pain. Patient says Dilaudid is causing her nauseous. States abdominal pain is not getting better. She is having a lot of nausea and vomiting. She says not eating because of nausea. She is being managed for the following: Partial SBO: Patient presents with abdominal pain and persistent nausea and vomiting with decreased p.o. intake. Metastatic colon cancer Patient presents with abdominal pain, nausea, vomiting, decreased p.o. intake. Status post EGD 03/02, large amount of retained fluid in the stomach and esophagus noted suggestive of partial obstruction. LA grade D reflux esophagitis with bleeding noted. Biopsies were taken----> follow-up on biopsy results. Status post CTAP with IV contrast 03/02: Noted multifocal pneumonia in the lung bases bilaterally. Noted small bowel obstruction. Noted findings concerning for possible right pyelonephritis. Per prior attending: Patient's surgical oncologist Dr. Johnson reached out on March 01, 2025. I provided update on patient's current condition. He reports that unfortunately patient does have recurrence of colon cancer given elevated tumor markers. The initial plan was reversal of the colostomy- which will be kept on hold for the time being as it will delay patient to obtain chemotherapy. He also asked me to discuss with patient if she wants to follow- up with local oncology for chemotherapy. I updated the patient about my discussion with her surgical oncologist on March 02, 2025; she verbalized understanding. She wants to follow-up at [facility] oncology. She reports that PET/CT is still not done yet; would like to follow-up with them to have it done. Pt w/ persistent nausea and vomiting likely iso pSBO. Continue on Compazine, Zofran and Phenergan as needed for nausea/vomiting. DC'd zyprexa 03/03 as pt not taking/also risk of QT prolongation given fluconazole and zofran use. GI on board, appreciate eval. General surgery on board, will follow ongoing recommendation. Continue with PPI. and multivitamins with minerals, IV thiamine, IV folic acid. Continue with D5 half NS. Monitor and replete electrolytes. Potassium and Mg replaced today. Acute UTI/ Possible right pyelonephritis Abdominal pain, hydroureteronephrosis Pt presents with abdominal pain mostly on left. Of note, patient recently presented with right-sided abdominal pain status post right ureteral stent placement February 03, 2025 with improvement in the pain. Admitting CTAP with mild left-sided hydronephroureterosis Patient underwent cystoscopy with left ureteral stent placement February 08, 2025, reports improvement in her left abdominal pain. Urine culture grew Salma multiple times, given recent ureteral procedure; pt started on fluconazole for candiduria. Plan to treat for 2 weeks. Monitor EKG. qtc 403 on 03/04 Follow-up with urology upon discharge. Multifocal pneumonia: concern for mutlifocal pna on lung bases noted on 03/02 CTAP with IV contrast. Patient denies cough or sore throat. Started cefepime 03/03, plan for 5 to 7 days of treatment. Recommend repeat CT chest in about 6 weeks time to document resolution of pneumonia. Anemiahemoglobin about 8, s/p EGD - see above, c/w iv ppi. History of PE: On Eliquis- resumed after EGD, now on hep drip as pt not able to take po. Anxiety and depression: On Lexapro, BuSpar and Ativan as needed. Resume once patient is able to take p.o. GERD: on protonix-continue DVT prophylaxis: On Heparin drip Disposition: Medical floor Full code. Please note the above document was generated using voice recognition software. It may contain grammatical, syntax or spelling errors. Any formal questions or concerns about the content, text or information contained within the body of this dictation should be directly addressed to the provider for clarification Admission and Anticipated Discharge Date Admission Date: February 27, 2025 Subjective Patient seen and examined. Patient reports ongoing nausea, vomiting/dry heaves. Reports improvement in abdominal pain. Reports improving ostomy output amount and consistency. Pt would like her palliative team consult. Physical Exam Physical Exam: Constitutional: on RA, NAD. Respiratory: Bilateral occ rales Cardiovascular: RRR, no murmur, no edema Vessels: no JVD or carotid bruit Chest: normal inspection of chest Abdomen: soft, mild epigastric tender. colostomy bag with good bilious output with flakes Musculoskeletal: no cyanosis or clubbing, extremities motor strength 5/5 Skin: no rashes, warm and dry normal turgor Neurologic: PERRL, EOMI, accommodation nl, no face palsy, no dysarthria CN's II- XI intact bilaterally and moves all extremities Results & Data Results & Data Vital Signs (Past 12 Hours) Vital Signs Temp Pulse Pulse Resp BP Pulse Ox O2 Del Method 03/04/25 10:40 36.5 C 85 18 156/109 H 95 Room Air 03/04/25 07:32 36.9 C 80 18 151/103 H 97 Room Air
[2025-03-04] MEDS: CALCIUM CARBONATE 500 MG CHEWABLE TAB PO STA (20:12)
[2025-03-04] MEDS: ALUMINUM/MAGNESIUM/SIMETH (MAALOX MAX) 30 ML UDC PO STA (23:32)
[2025-03-05] MEDS: ALUMINUM/MAGNESIUM SUSP 30 ML UDC PO PRN (05:52)
[2025-03-05 06:32] LABS: Hematocrit (blood only) 24.5 % (37.0-47.0); Hemoglobin 7.8 g/dL (12.0-16.0); Mean Corpuscular Hemoglobin 24.8 pg (25.0-34.0); Mean Corpuscular Volume 78.0 fL (80.0-100.0); Platelet Count 247 K/uL (130-400); RDW Standard Deviation 51.8 fL (36.4-46.3); Red Blood Count 3.14 M/uL (4.20-5.40); White Blood Count 12.47 K/ul (4.8-10.8)
[2025-03-05 06:53] LABS: Anion Gap 10.0 (3-11); Blood Urea Nitrogen 11.0 mg/dl (6-23); Calcium 7.6 mg/dl (8.6-10.3); Carbon Dioxide 22.0 mmol/L (21-32); Chloride 105.0 mmol/L (98-107); Creatinine Clr Calc Pharmacy 134.7 ml/min; Glucose 106.0 mg/dl (70-99(Fasting)); Magnesium 1.6 mg/dl (1.7-2.4); Potassium 3.0 mmol/L (3.5-5.1); Sodium 137.0 mmol/L (136-145)
[2025-03-05 06:56] LABS: ANTI-Xa, UFH(UnfractionatedHep < 0.10 IU/ml (0.3-0.7)
[2025-03-05] MEDS: HEPARIN SOD (PORCINE) 1000 UNIT/ML IV ONE ×2 (07:22→22:55)
[2025-03-05] MEDS: POTASSIUM CHLORIDE / WTR 10 MEQ/100 ML PLCT IV SCH (07:43)
[2025-03-05] MEDS: MAGNESIUM SULFATE / D5W 1 GM/100 ML BAG IV SCH (07:43)
--- NOTE | 2025-03-05 08:54 | Palliative Care Consultation ---
Date of Consultation March 05, 2025 Assessment & Plan (1) Nausea & vomiting: pt c/o intermittent "reflux" triggering nausea and vomiting which exacerbates her abdominal pain. she states that this is well managed with BID pepcid and protonix. gives her IVF at home via her port - usually 1 liter NS as needed, uses Zofran for nausea with mixed relief She takes Compazine occasionally but avoids it due to side effect of drowsiness (2) Right flank pain: (3) Intractable abdominal pain: pt states her pain is constant right flank pain which is gnawing, nonradiating and worsened by emesis. She states that she has been taking Dilaudid 4mg every 3h at home. she shared that this offers adequate relief but only lasts about 2h before pain starts escalating again. discussed importance of adequate pain mmanagement as it relates to her overall health and quality of life.discussed her frequent need for short acting opiates and benefits of long acting medications to afford more consistent pain mgmt and better sleep. options for long acting opiates are limited iso gastric sleeve and ileostomy and significant absorption issues and dumping syndrome. She states she was previously prescribed transdermal fentayl, but she only tried one patch and removed it after 4h because it made her "feel hot" and hyperactive. she shared that she would like to try Td fentanyl again. Added duragesic 22ucg/hr q72h patch continue Hydromorphone Hcl 4 mg PO Q4H PRN BTP Plan as above History of Present Illness Reason for Consultation: pain mgmt Requesting Physician: Brooke Velásquez MD Attending Physician: Brooke Velásquez MD History of Present Illness 44-year-old female with past medical history significant for metastatic colon adenocarcinoma mets to liver and peritoneum, perforated diverticulitis/adenocarcinoma status post colostomy, pulm embolism on Eliquis, C. difficile s/p treatment, anxiety and depression, iron deficiency anemia presents with abdominal pain.Patient is having ongoing pain for several weeks now. This is her third admission since last 1 month. Patient is status post right ureteral stent on and supposed to follow-up outpatient for stent removal. She was on Bactrim and amoxicillin for postop hepatic abscess, says no longer on antibiotics. She was again admitted 06 of February for small bowel obstruction and was discharged on 02/08/2025. Patient is followed with palliative care. Currently on p.o. Dilaudid 4 mg every 3 hours as needed for pain. Patient says Dilaudid is causing her nauseous. States abdominal pain is not getting better. She is having a lot of nausea and vomiting. She says not eating because of nausea. Today evening she had a fever. She is having blood in the urine. Somewhat constipated. Denies any chest pain or shortness of breath. No headache. No runny nose or sore throat. Hemodynamics are okay. Patient states wants to try morphine for pain instead of Dilaudid. Allergies Allergy/AdvReac Type Severity Reaction Status Date / Time oxaliplatin Allergy Intermediate "HOT & Verified 02/27/25 00:23 ITCHY" IMMEDIATELY vancomycin Allergy Intermediate "HOT & Verified 02/27/25 00:23 ITCHY" IMMEDIATELY Home Medications Medication Instructions Recorded Confirmed Type apixaban 5 mg tablet (Eliquis) 5 mg PO BID 02/02/25 02/27/25 History buspirone 10 mg tablet 10 mg PO BID 02/02/25 02/27/25 History escitalopram oxalate 20 mg tablet 20 mg PO DAILY 02/02/25 02/27/25 History famotidine 20 mg tablet 20 mg PO BID 02/02/25 02/27/25 History lorazepam 0.5 mg tablet 0.5 mg PO TID PRN Anxiety 02/02/25 02/27/25 History pregabalin 50 mg capsule 50 mg PO BID #30 caps 02/06/25 02/27/25 Rx hydromorphone 4 mg tablet 4 mg PO Q4H PRN severe cancer pain 02/18/25 02/27/25 Rx (Dilaudid) 1 month #180 tabs ondansetron 8 mg disintegrating 8 mg PO Q8H PRN Nausea 02/24/25 02/27/25 History tablet methocarbamol 500 mg tablet 1,000 mg PO QID PRN NEEDED PER 02/27/25 02/27/25 History PT Patient History Medical History Nausea & vomiting Small bowel obstruction Peritonitis Abdominal pain Acute diverticulitis History of Clostridium difficile infection diagnosed 02/09/24 while admitted in hospital - treated with Vancomycin until 02/27/24 Colostomy present done 02/04/24 stoma revised 02/06/24 with an additional 4.5cm of the colon removed History of diverticulitis history of multiple flares over the past year Hx of deep venous thrombosis (2010) - s/p childbirth in 2010- was on blood thinner for short time - no DVT noted with PE on 02/16/24 Hx of migraines History of panic attacks History of pulmonary embolism dx 02/16/24 at [place]>started on Eliquis provoked by malignancy and surgical intervention per records dopplers negative for DVT Adenocarcinoma of colon dx'ed 01/2024 Perforated sigmoid colon - 02/03/24 due to enlarging mass (adenocarcinoma of the colon) - 02/04/24 underwent partial left colon resection and end colostomy Depression with anxiety Surgical History Hx of hysterectomy Port-A-Cath in place (03/13/24) Insertion of Access Port with Fluoroscopy into Right Internal Jugular Vein(Right) - Elizabeth Velasquez DO [place] teeth removed H/O abdominal surgery (02/05/24) Exploratory Laparoscopy Revision of Colostomy and Stoma(Not Applicable) - Elizabeth Velasquez DO History of x 2 H/O gastric sleeve (2021) History of colon resection (02/04/24) p Diagnostic Laparoscopy, with a laparoscopic colon resection, Abdominal Wash Out, Creation Colostomy(Not Applicable) - Elizbaeth Velasquez DO Extensive lysis of adhesions Family History Other No family history of adverse response to anesthesia Social History Smoking Status: Never smoker Second Hand Exposure: No; Do You Dip or Chew Tobacco: No; Hx Alcohol Use: No Hx Substance Use: No Preferred Language: Croatian Communication Ability: Effective Visual Impairment: No Limitations 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 Beliefs That Will Affect Care: None Current Living Situation: Spouse Current Living Situation Comment: Home Feels Safe at Home: Yes Assistive Devices: None Review of Systems Review of Systems: All systems reviewed & are unremarkable except as noted in HPI & below Physical Exam Constitutional: WD/WN, vitals as above Eyes: PERRL, conjunctivae normal, anicteric sclerae Respiratory: normal respiratory effort, lungs clear to auscultation Cardiovascular: RRR, no murmur, no edema Gastrointestinal (Abdomen): Soft, nontender, right lower quadrant ostomy with bilious output Skin: no rashes, warm and dry Psychiatric: A+Ox3, euthymic affect Results & Data Vital Signs (Past 12 Hours) Vital Signs Temp Pulse Pulse Pulse Resp BP Pulse Ox 03/05/25 07:19 36.9 C 86 20 156/105 H 96 03/05/25 04:34 37.1 C 86 16 150/95 H 93 03/05/25 00:29 37.1 C 80 16 149/96 H 94 03/04/25 21:35 80 O2 Del Method 03/05/25 07:19 Nasal Cannula 03/05/25 04:34 Room Air 03/05/25 00:29 Room Air 03/04/25 21:35 Laboratory Results Abnormal lab results 03/05/25 03/05/25 03/05/25 Range/Units 06:07 14:34 16:35 WBC 12.47 H (4.8-10.8) K/ul RBC 3.14 L (4.20-5.40) M/uL Hgb 7.8 L (12.0-16.0) g/dL Hct 24.5 L (37.0-47.0) % MCV 78.0 L (80.0-100.0) fL MCH 24.8 L (25.0-34.0) pg MCHC 31.8 L (32.0-36.0) g/dL RDW Std Deviation 51.8 H (36.4-46.3) fL RDW Coeff of Mita 18.3 H (11.5-14.5) % Heparin Anti-Xa, Unfract < 0.10 L 0.20 L (0.3-0.7) IU/ml Potassium 3.0 L (3.5-5.1) mmol/L Creatinine 0.51 L 0.53 L (0.6-1.2) mg/dl BUN/Creatinine Ratio 21.6 H (10-20) Glucose 106 H 115 H (70-99(Fasting)) mg/dl Calcium 7.6 L 7.6 L (8.6-10.3) mg/dl Magnesium 1.6 L (1.7-2.4) mg/dl Nasal Screen MRSA (PCR) Positive A (Negative) Diagnostic Findings Abdomen Fluoroscopy 02/28/25 00:00 FL KUB CLINICAL HISTORY: LEFT STENT PLACEMENT COMPARISON STUDY: None FLUOROSCOPY TIME: 5 seconds FLUOROSCOPY IMAGES: 4 EXPOSURE DOSE: 1 mGy FINDINGS: Fluoroscopy was provided for urologic procedure. IMPRESSION: Intraoperative fluoroscopy. ACT 112: Negative or not required by law. Electronically signed by: Ricardo Green M.D. 03/01/2025 8:24 AM KUB X-Ray 03/01/25 08:41 KUB HISTORY: persistant hicupps COMPARISON STUDY: 02/27/2025 FINDINGS: Stable IVC filter. Bilateral ureteral stents appear grossly well- positioned. There is mild retained stool. There are a few mildly distended small bowel loops at the left upper quadrant measuring up to 3.5 cm, grossly stable. No colonic distention seen. No gross free air. IMPRESSION: Grossly stable mild small bowel distention. ACT 112: Negative or not required by law. The above report was generated using voice recognition software. It may contain grammatical, syntax or spelling errors. Electronically signed by: Ricardo Green M.D. 03/01/2025 10:06 AM Abdomen/Pelvis CT 03/02/25 14:52 CT ABDOMEN and PELVIS with INTRAVENOUS CONTRAST HISTORY: Abdominal pain TECHNIQUE: CT abdomen and pelvis with contrast. IV CONTRAST: 100 mL of OMNIPAQUE 300 ENTERIC CONTRAST: Not Given COMPARISON: CT abdomen and pelvis February 26, 2025 FINDINGS: LOWER CHEST: New multifocal pneumonia in the included lung bases involving the lingula and bilateral lower lobes. Small right greater than left pleural fluids are similar to previous LIVER: Redemonstrated numerous hepatic lesions and masses measuring up to 4.5 cm. GALLBLADDER/BILIARY: Unremarkable gallbladder. No abnormal biliary dilatation. SPLEEN: Unremarkable. PANCREAS: Unremarkable. ADRENALS: Unremarkable. KIDNEYS: Interval placement of a left-sided internalized ureteral stent with resolution of the previously present hydroureteronephrosis. Right sided internalized ureteral stent is again seen. Cortical cysts. No stones or hydronephrosis identified. Ill-defined transcortical hypoattenuations are suggested in the renal parenchyma, especially in the right kidney. Recommend correlation with possible pyelonephritis PERITONEUM/RETROPERITONEUM. Mild enlarged portacaval lymph nodes. No aortic aneurysm. IVC filter. Small ascites appears similar to previous. GASTROINTESTINAL: No obstruction. Redemonstrated postoperative changes of sleeve gastrectomy and multiple bowel resections. Loop ileostomy is again seen in the right lower quadrant. There are multiple loops of small bowel that are moderately distended with fluid and gas. There is a suggestion of transition point in the left lower quadrant of the abdomen around series 2, image 55. In this area, there is matted appearance of the multiple loops of small bowel closely approximating the anterior abdominal wall fascia whether there are postsurgical changes, indicative of adhesions. REPRODUCTIVE: Status post hysterectomy. Likely left adnexal cystic structure seen in the left paracolic gutter (series 2, image 44) URINARY BLADDER: There are layering hyperdense materials within the lumen of the urinary bladder (series 2, image 72 for example) that are new from the previous examination 4 days ago. Small intraluminal air is also present. BONES: No acute findings. IMPRESSION: New multifocal pneumonia in the included lung bases involving the lingula and bilateral lower lobes. Multiple loops of small bowel are moderately distended with fluid and gas with a suggested transition point in the left lower quadrant of the abdomen where there are extensive postoperative adhesions. Small bowel obstruction is suspected. Please clinically correlate. Extensive postsurgical changes are redemonstrated as above. Multiple ill-defined hepatic lesions and masses are again seen, compatible with metastatic disease Interval placement of a left-sided internalized ureteral stent with resolution of the previously present hydroureteronephrosis. NEW layering hyperdense materials within the lumen of the urinary bladder. These are likely blood products and may be postprocedural in nature given interval placement of a left-sided ureteral stent Ill-defined transcortical hypoattenuations are suggested in the renal parenchyma, especially in the right kidney. Recommend correlation with possible pyelonephritis Electronically signed by Maximo Khalil 03-02-2025 7:[address] 03/05/25 13:23 CT chest diagnostic wo con CT DOSE: 443.65 mGy.cm CLINICAL HISTORY: Pna under Rx, now w/ increasing O2 need. TECHNIQUE: Multiaxial CT images of the chest were performed without contrast. A dose lowering technique was utilized adhering to the principles of ALARA. COMPARISON STUDY: 02/02/2025 FINDINGS: There are bilateral pleural effusions, moderate on the right small on the left, increased. There is increased bandlike and patchy consolidation in the lower lung lobes, right greater than left. There is increased scattered patchy groundglass opacity in the upper lobes, left greater than right. No pneumothorax seen. No enlarged adenopathy. The esophagus is fluid-filled and mildly dilated. Represent reflux or reduced esophageal motility. No pericardial effusion. Masses at the upper liver are grossly stable. No acute osseous finding seen. IMPRESSION: Increased pneumonia and increased pleural effusions. ACT 112: Negative or not required by law. Electronically signed by: Ricardo Green M.D. 03/05/2025 3:09 PM Medications Administered Current Inpatient Medications Al Hydrox/Mg Hydrox/Simethicone (Aluminum/Magnesium Susp 30 Ml Udc) 15 ml PO Q6H PRN PRN Reason: Heartburn Stop: 04/04/25 05:40 Last Admin: 03/05/25 05:52 Dose: 15 ml Albuterol (Albut/Ipratrop 3mg/0.5mg Neb 3 Ml Vial) 3 ml NEB Q6R [facility]; Protocol Stop: 04/04/25 18:59 Last Admin: 03/05/25 19:14 Dose: 3 ml Albuterol (Albuterol 0.5% Neb Soln 2.5 Mg/0.5 Ml Vial) 2.5 mg NEB Q6R PRN; Protocol PRN Reason: sob, wheezing Stop: 04/04/25 18:59 Last Admin: 03/05/25 15:17 Dose: 2.5 mg Apixaban (Apixaban 5 Mg Tablet) 5 mg PO BID [place] Stop: 03/29/25 08:59 Last Admin: 03/02/25 10:18 Dose: Not Given Baclofen (Baclofen 10 Mg Tab) 10 mg PO TID [place] Stop: 04/01/25 08:59 Last Admin: 03/05/25 19:38 Dose: Not Given Buspirone HCl (Buspirone 5 Mg Tab) 10 mg PO BID [place] Stop: 03/29/25 08:59 Last Admin: 03/05/25 20:45 Dose: 10 mg Calcium Carbonate (Calcium Carbonate 500 Mg Chewable Tab) 500 mg PO QID PRN PRN Reason: heartburn Stop: 04/03/25 19:54 Escitalopram Oxalate (Escitalopram Oxalate 20 Mg Tab) 20 mg PO DAILY [place] Stop: 03/29/25 08:59 Last Admin: 03/05/25 08:00 Dose: 20 mg Famotidine (Famotidine 20 Mg Tab) 20 mg PO BID [place] Stop: 03/29/25 08:59 Last Admin: 03/05/25 20:45 Dose: 20 mg Fentanyl (Fentanyl 25 Mcg/Hr Tdsy) 1 patch TD Q3D [place] Stop: 03/19/25 13:59 Last Admin: 03/05/25 15:11 Dose: 1 patch Heparin Sodium (Porcine) (Heparin 100 Unit/Ml 5ml Flush) 5 ml FLUSH PRN PRN PRN Reason: Flush Stop: 03/30/25 18:43 Hydromorphone HCl (Hydromorphone Hcl 2 Mg Tab) 4 mg PO Q4H PRN PRN Reason: pain Stop: 03/13/25 10:27 Last Admin: 02/27/25 22:10 Dose: 4 mg Hydromorphone HCl (Hydromorphone Inj 0.5 Mg/0.5 Ml Syr) 0.5 mg IV Q3H PRN PRN Reason: Pain Stop: 03/16/25 08:23 Last Admin: 03/05/25 19:31 Dose: 0.5 mg Promethazine HCl (Phenergan) 12.5 mg in 50.5 mls @ 202 mls/hr IV Q6H PRN PRN Reason: Nausea And Vomiting Stop: 03/29/25 07:35 Last Infusion: 03/05/25 10:31 Dose: Infused Prochlorperazine 5 mg/ Syringe 5 mls @ 5 mls/min IV Q6H PRN PRN Reason: Nausea And Vomiting Stop: 03/29/25 07:35 Last Admin: 03/03/25 19:47 Dose: 5 mls/min Fluconazole (Diflucan) 200 mg in 100 mls @ 100 mls/hr IV Q24H [place] Stop: 03/11/25 10:59 Last Infusion: 03/05/25 12:31 Dose: Infused Lorazepam 0.5 mg/ Syringe 0.5 mls @ 2 mls/min IV Q8H PRN PRN Reason: Anxiety/Agitation Stop: 04/01/25 00:19 Last Admin: 03/05/25 02:11 Dose: 2 mls/min Pantoprazole Sodium (Protonix) 40 mg in 10 mls @ 5 mls/min IV BID [place] Stop: 04/01/25 20:59 Last Admin: 03/05/25 19:45 Dose: 5 mls/min Cefepime HCl (Maxipime 2000mg) 2,000 mg in 20 mls @ 5 mls/min IV Q8H [facility]; Protocol Stop: 03/10/25 08:59 Last Admin: 03/05/25 16:26 Dose: 5 mls/min Thiamine HCl 200 mg/ Sodium (Chloride) 52 mls @ 210 mls/hr IV QAM [facility] Stop: 04/03/25 08:59 Last Infusion: 03/05/25 08:36 Dose: Infused Folic Acid 1 mg/ Syringe 10 mls @ 5 mls/min IV QAM [facility] Stop: 04/03/25 08:59 Last Admin: 03/05/25 07:58 Dose: 5 mls/min Heparin Sodium/Dextrose (Heparin 64974 Unit/500 Ml D5w) 25,000 units in 500 mls @ 21 mls/hr IV .[id number] [facility]; Protocol Stop: 04/02/25 15:44 Last Titration: 03/05/25 18:47 Dose: 1,050 units/hr, 21 mls/hr Potassium Chloride 40 meq/ (Dextrose/Sodium Chloride) 1,020 mls @ 80 mls/hr IV .[id number] [facility] Stop: 03/06/25 12:59 Last Admin: 03/05/25 11:18 Dose: 80 mls/hr Doxycycline Hyclate 100 mg/ (Dextrose) 100 mls @ 50 mls/hr IV Q12H [facility] Stop: 03/12/25 18:59 Last Admin: 03/05/25 20:19 Dose: 50 mls/hr Lorazepam (Lorazepam 0.5 Mg Tab) 0.5 mg PO TID PRN PRN Reason: Anxiety Stop: 03/29/25 04:59 Last Admin: 03/05/25 08:45 Dose: 0.5 mg Methocarbamol (Methocarbamol 500 Mg Tablet) 500 mg PO TID PRN PRN Reason: spasm Stop: 04/03/25 04:12 Miscellaneous (Fentanyl Patch Remove & Waste) 1 each N/A Q3D [facility] Stop: 04/04/25 13:59 Last Admin: 03/05/25 15:12 Dose: 1 each Miscellaneous (Check Fentanyl Patch Placement) 1 each N/A QS [place] Stop: 04/04/25 15:59 Last Admin: 03/05/25 15:50 Dose: 1 each Multivitamins/Minerals (Cerovite Adv Formula Tab) 1 tab PO QAM [place] Stop: 04/03/25 08:59 Last Admin: 03/05/25 07:42 Dose: Not Given Ondansetron HCl (Ondansetron Inj 2 Mg/Ml 2 Ml Vial) 4 mg IV Q6H PRN PRN Reason: Nausea Stop: 03/29/25 04:59 Last Admin: 03/05/25 19:46 Dose: 4 mg Phenol (Chloraseptic (Phenol) 1.4% Soln 180 Ml Btl) 2 sprays MT Q6H PRN PRN Reason: throat pain Stop: 03/31/25 09:26 Last Admin: 03/01/25 12:33 Dose: 2 sprays Pregabalin (Pregabalin 50 Mg Cap) 50 mg PO BID [facility] Stop: 03/29/25 08:59 Last Admin: 03/05/25 20:45 Dose: 50 mg Sucralfate (Sucralfate 1 Gm Tab) 1 gm PO QID [place] Stop: 04/04/25 16:59 Last Admin: 03/05/25 20:45 Dose: 1 gm PG Care Time/CCT Total # of Minutes Spent Total Time Spent with Patient: Total time spent is greater than 50% in coordination of care (as documented) at patient's floor/unit and/or counseling patient: [place] [address] IN/OBS CONSULT LVL 5,80M Patient Type New History Expanded Problem Focused Exam Expanded Problem Focused Diagnoses Nausea & vomiting R11.2 Right flank pain R10.A1 Intractable abdominal pain R10.9
--- NOTE | 2025-03-05 09:27 | Surgery Progress Note ---
Date of Service March 05, 2025 Assessment & Plan (1) Partial small bowel obstruction: Plan: She is having ostomy output Trial clears today She would not be a surgical candidate at this facility due to her complexity Surgery will follow Admission and Anticipated Discharge Date Admission Date: February 27, 2025 Subjective Patient seen and examined. Afebrile. Ostomy is functioning. She is still nauseated. Would like to try clears today. Review of Systems Constitutional: no fever and no chills Eyes: no blind spots and no corrective lenses Respiratory: no cough and no dyspnea Cardiovascular: no chest pain and no dyspnea on exertion Gastrointestinal: + nausea and + change in bowel habits; n o abdominal pain and no vomiting Integumentary: no acne and no lesions Psychiatric: no behavioral changes and no depression Physical Exam Constitutional: WD/WN, vitals as above Eyes: PERRL, conjunctivae normal, anicteric sclerae Respiratory: normal respiratory effort, lungs clear to auscultation Cardiovascular: RRR, no murmur, no edema Gastrointestinal (Abdomen): Soft, nontender, right lower quadrant ostomy with bilious output Skin: no rashes, warm and dry Psychiatric: A+Ox3, euthymic affect Results & Data Vital Signs (Past 12 Hours) Vital Signs Temp Pulse Pulse Pulse Resp BP Pulse Ox 03/05/25 07:19 36.9 C 86 20 156/105 H 96 03/05/25 04:34 37.1 C 86 16 150/95 H 93 03/05/25 00:29 37.1 C 80 16 149/96 H 94 03/04/25 21:35 80 O2 Del Method 03/05/25 07:19 Nasal Cannula 03/05/25 04:34 Room Air 03/05/25 00:29 Room Air 03/04/25 21:35 PG Care Time/CCT Total # of Minutes Spent Total Time Spent with Patient: Total time spent is greater than 50% in coordination of care (as documented) at patient's floor/unit and/or counseling patient: Coding Level of Care Code 58932 SUB INP/OBS CARE 05/02MIN Diagnoses Partial small bowel obstruction K56.600
[2025-03-05] MEDS: POTASSIUM CHLORIDE 40 MEQ in D5W AND 1/2NSS 1,000 ML IV SCH (11:18)
--- NOTE | 2025-03-05 12:13 | Hospitalist Progress Note ---
Date of Service March 05, 2025 Assessment & Plan (1) Abdominal pain: Plan: 44-year-old female with past medical history significant for metastatic colon adenocarcinoma mets to liver and peritoneum, perforated diverticulitis/adenocarcinoma status post colostomy, pulm embolism on Eliquis, C. difficile s/p treatment, anxiety and depression, iron deficiency anemia presents with abdominal pain. Patient is having ongoing pain for several weeks now. This is her third admission since last 1 month. Patient is status post right ureteral stent on and supposed to follow-up outpatient for stent removal. She was on Bactrim and amoxicillin for postop hepatic abscess, says no longer on antibiotics. She was again admitted 06 of February for small bowel obstruction and was discharged on 02/08/2025. Patient is followed with palliative care. Currently on p.o. Dilaudid 4 mg every 3 hours as needed for pain. Patient says Dilaudid is causing her nauseous. States abdominal pain is not getting better. She is having a lot of nausea and vomiting. She says not eating because of nausea. She is being managed for the following: Partial SBO: Patient presents with abdominal pain and persistent nausea and vomiting with decreased p.o. intake. Metastatic colon cancer Patient presents with abdominal pain, nausea, vomiting, decreased p.o. intake. Status post EGD 03/02, large amount of retained fluid in the stomach and esophagus noted suggestive of partial obstruction. LA grade D reflux esophagitis with bleeding noted. Biopsies were taken----> follow-up on biopsy results. Status post CTAP with IV contrast 03/02: Noted multifocal pneumonia in the lung bases bilaterally. Noted small bowel obstruction. Noted findings concerning for possible right pyelonephritis. Per prior attending: Patient's surgical oncologist Dr. Johnson reached out on March 01, 2025. I provided update on patient's current condition. He reports that unfortunately patient does have recurrence of colon cancer given elevated tumor markers. The initial plan was reversal of the colostomy- which will be kept on hold for the time being as it will delay patient to obtain chemotherapy. He also asked me to discuss with patient if she wants to follow- up with local oncology for chemotherapy. I updated the patient about my discussion with her surgical oncologist on March 02, 2025; she verbalized understanding. She wants to follow-up at [facility] oncology. She reports that PET/CT is still not done yet; would like to follow-up with them to have it done. Pt w/ persistent nausea and vomiting likely iso pSBO. Continue on Compazine, Zofran and Phenergan as needed for nausea/vomiting. DC'd zyprexa 03/03 as pt not taking/also risk of QT prolongation given fluconazole and zofran use. AZAM craft, emiliana eval. General surgery on board, will follow ongoing recommendation. plan for clears today. Continue with PPI. and multivitamins with minerals, IV thiamine, IV folic acid. Continue with D5 half NS w/ KCL. Monitor and replete electrolytes. Potassium and Mg replaced today. repeat BMP in the pm. Acute UTI/ Possible right pyelonephritis Abdominal pain, hydroureteronephrosis Pt presents with abdominal pain mostly on left. Of note, patient recently presented with right-sided abdominal pain status post right ureteral stent placement February 03, 2025 with improvement in the pain. Admitting CTAP with mild left-sided hydronephroureterosis Patient underwent cystoscopy with left ureteral stent placement February 08, 2025, reports improvement in her left abdominal pain. Urine culture grew Salma multiple times, given recent ureteral procedure; pt started on fluconazole for candiduria. Plan to treat for 2 weeks. Monitor EKG. qtc 403 on 03/04 Follow-up with urology upon discharge. Multifocal pneumonia: concern for mutlifocal pna on lung bases noted on 03/02 CTAP with IV contrast. Patient denies cough or sore throat. Started cefepime 03/03, plan for 5 to 7 days of treatment. Recommend repeat CT chest in about 6 weeks time to document resolution of pneumonia. Anemiahemoglobin about 8, s/p EGD - see above, c/w iv ppi. History of PE: On Eliquis- resumed after EGD, now on hep drip as pt not able to take po. Anxiety and depression: On Lexapro, BuSpar and Ativan as needed. Resume once patient is able to take p.o. GERD: on protonix-continue DVT prophylaxis: On Heparin drip Disposition: Medical floor Full code. Please note the above document was generated using voice recognition software. It may contain grammatical, syntax or spelling errors. Any formal questions or concerns about the content, text or information contained within the body of this dictation should be directly addressed to the provider for clarification Admission and Anticipated Discharge Date Admission Date: February 27, 2025 Subjective Patient seen and examined. Patient reports ongoing nausea, vomiting/dry heaves but somewhat better during the day. Reports improvement in abdominal pain. Reports improving ostomy output amount. Denies F/ST/C/CP. Physical Exam Physical Exam: Constitutional: on RA, NAD. Respiratory: Bilateral occ rales Cardiovascular: RRR, no murmur, no edema Vessels: no JVD or carotid bruit Chest: normal inspection of chest Abdomen: soft, No epigastric tender. colostomy bag with good amount of bilious output Musculoskeletal: no cyanosis or clubbing, extremities motor strength 5/5 Skin: no rashes, warm and dry normal turgor Neurologic: PERRL, EOMI, accommodation nl, no face palsy, no dysarthria CN's II- XI intact bilaterally and moves all extremities Results & Data Results & Data Vital Signs (Past 12 Hours) Vital Signs Temp Pulse Pulse Resp BP BP Pulse Ox 03/05/25 11:22 36.7 C 98 H 20 147/110 H 136/94 97 03/05/25 10:00 03/05/25 07:19 36.9 C 86 20 156/105 H 96 03/05/25 04:34 37.1 C 86 16 150/95 H 93 03/05/25 00:29 37.1 C 80 16 149/96 H 94 O2 Del Method O2 Flow Rate 03/05/25 11:22 Nasal Cannula 03/05/25 10:00 Nasal Cannula 2 03/05/25 07:19 Nasal Cannula 03/05/25 04:34 Room Air 03/05/25 00:29 Room Air
--- NOTE | 2025-03-05 15:11 | CT Scan Report ---
CT chest diagnostic wo con CT DOSE: 443.65 mGy.cm CLINICAL HISTORY: Pna under Rx, now w/ increasing O2 need. TECHNIQUE: Multiaxial CT images of the chest were performed without contrast. A dose lowering techni que was utilized adhering to the principles of ALARA. COMPARISON STUDY: 02/02/2025 FINDINGS: There are bilateral pleural effusions, moderate on the right small on the left, increased. There is increased bandlike and patchy consolidation in the lower lung lobes, right greater than left . There is increased scattered patchy groundglass opacity in the upper lobes, left greater than right . No pneumothorax seen. No enlarged adenopathy. The esophagus is fluid-filled and mildly dilated. Rep resent reflux or reduced esophageal motility. No pericardial effusion. Masses at the upper liver are grossly stable. No acute osseous finding seen. IMPRESSION: Increased pneumonia and increased pleural effusions. ACT 112: Negative or not required by law. Electronically signed by: Ricardo Green M.D. 03/05/2025 3:09 PM
[2025-03-05 15:13] LABS: Anion Gap 10.0 (3-11); Blood Urea Nitrogen 9.0 mg/dl (6-23); Calcium 7.6 mg/dl (8.6-10.3); Carbon Dioxide 22.0 mmol/L (21-32); Chloride 104.0 mmol/L (98-107); Creatinine Clr Calc Pharmacy 129.6 ml/min; Glucose 115.0 mg/dl (70-99(Fasting)); Potassium 3.8 mmol/L (3.5-5.1); Sodium 136.0 mmol/L (136-145)
[2025-03-05] MEDS: ALBUTEROL 0.5% NEB SOLN 2.5 MG/0.5 ML VIAL NEB PRN (15:17)
[2025-03-05 15:32] LABS: ANTI-Xa, UFH(UnfractionatedHep 0.20 IU/ml (0.3-0.7)
[2025-03-05 15:35] LABS: Magnesium 2.0 mg/dl (1.7-2.4)
--- NOTE | 2025-03-05 16:39 | Electrocardiogram Report ---
Test Reason : Blood Pressure : */* mmHG Vent. Rate : 86 BPM Atrial Rate : 86 BPM P-R Int : 116 ms QRS Dur : 80 ms QT Int : 342 ms P-R-T Axes : * -6 -1 degrees QTcB Int : 409 ms Normal sinus rhythm Minimal voltage criteria for LVH, may be normal variant Nonspecific T wave abnormality Abnormal ECG Confirmed by Reynaldo Cash ([id number]) on 03/05/2025 4:39:19 PM Referred By: REFERRED SELF Confirmed By: Reynaldo Cash
[2025-03-05] MEDS: SUCRALFATE 1 GM TAB PO SCH (18:13)
[2025-03-05] MEDS: ALBUT/IPRATROP 3MG/0.5MG NEB 3 ML VIAL NEB SCH (19:14)
--- NOTE | 2025-03-05 20:04 | Pulmonary Consultation ---
Date of Consultation March 05, 2025 Assessment & Plan (1) Pulmonary embolism: Acute cor pulmonale presence: unspecified Chronicity: acute P ulmonary embolism type: unspecified Qualified Code(s): I26.99 - Other pulmonary embolism without acute cor pulmonale (2) Pleural effusion: (3) Multifocal pneumonia: Plan Deanna King is a 44-year-old female with past medical history of metastatic colon adenocarcinoma w/ mets to liver and peritoneum, diverticulitis w/ perforation s/p colectomy and end colostomy placement, small bowel obstruction, C. Diff, iron deficiency anemia, DVT, PE, migraines, depression, and anxiety; who presented to [facility] on 02/26/2025 for abdominal pain, N/V, and poor PO intake. On 03/05/[address] showed bilateral pleural effusions R>L, patchy ground glass infiltrates noted in the bilateral upper lobes with dense consolidations in the bilateral lower lobes. Pulmonary was consulted for concern of multifocal pneumonia and worsening pleural effusions in setting of metastatic colon adenocarcinoma and SBO. Multifocal pneumonia -CT bad pelvis from 03/02/25 concerning for multifocal pneumonia -CT chest 03/05/25 showed bilateral pleural effusion R>L, patchy consolidations w/ dense bilateral lower lobe infiltrates. -Afebrile. WBC 12.47. Procalcitonin ordered and pending. -Sputum culture ordered. -RVP pending -On empiric doxy and cefepime. Continue. -MRSA + nares 03/05/25. Will add MRSA coverage given high risk profile. Patient has history of vancomycin skin reaction not true allergy. Linezolid was considered but given BuSpar, escitalopram, and PRN fentanyl pushes the risk for serotonin syndrome is moderate to high. Will utilize a slower infusion of vancomycin and premedication with Benadryl. Bilateral pleural effusions -Bilateral pleural effusions noted on CT -Will perform POCUS to evaluate pleural effusions. -Will consider thoracentesis to evaluate etiology. Patient is open to thoracentesis if needed. -On heparin gtt. Will hold heparin gtt 4 hrs prior to thoracentesis. -Last TTE 02/17/2024 LV normal size, mild LVH, LVEF 55-60%, trace itral regurg, RV normal size and fx. No signs of pulm HTN. -BNP ordered. Pulmonary Embolism -On Eliquis. Difficult to be compliant and determine absorption as patient has nausea and vomiting. -Currently on heparin gtt. Thank you for allowing us to participate in this patient's care. Please feel free to call with questions or concerns. 48 minutes is the time spent reviewing the chart, obtaining the history, performing the physical exam, updating the patient and bedside nurse. Supervising Physician Co-Signing Physician Notes Patient seen and examined. Please refer to my progress note from 02/26/2025 for additional details. Agree with assessment plan as noted below History of Present Illness Reason for Consultation: Multifocal Pneumonia and pleural effusion in s/o metastatic colon CA. Attending Physician: Brooke Velásquez MD History of Present Illness Deanna King is a 44-year-old female with past medical history of metastatic colon adenocarcinoma w/ mets to liver and peritoneum, diverticulitis w/ perforation s/p colectomy and end colostomy placement, small bowel obstruction, C. Diff, iron deficiency anemia, DVT, PE, migraines, depression, and anxiety; who presented to [facility] on 02/26/2025 for abdominal pain, N/V, and poor PO intake that has been ongoing for the past few weeks. Of note this is the patient's 3rd admission in the last month. She was initially seen for a small bowel obstruction on February 06, 2025. She has been managed for pain with Dilaudid PO but pain remains uncontrolled. Patient underwent an EGD on 03/02/25 which noted a large amount of retained fluid in the stomach and esophagus suggestive of partial obstruction. Also on 03/02/[address] of the abdomen and pelvis with contrast which was concerning for multifocal pneumonia in the bilateral bases. On 03/05/20[address] she [address] CT completed which showed bilateral pleural effusions R>L, patchy ground glass infiltrates noted in the bilateral upper lobes with dense consolidations in the bilateral lower lobes. Pulmonary was consulted for concern of multifocal pneumonia and worsening pleural effusions in setting of metastatic colon adenocarcinoma and SBO. Patient is a never smoker. 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 She has no history of lung disease. Patient with metastatic colon adenocarcinoma followed by [facility] surgical oncologist. Had surgery where they tried to remove all the cancer from her liver and performed a hysterectomy. Last chemotherapy September 2024. Patient appears to have reoccurrence of colon cancer Per Dr. Johnson [facility]. Patient lives at home with and daughter. Has dogs and birds (parakeets in the past and now cockatiels). Denies fevers, chills, night sweats, hemoptysis. Endorses a cough which is rarely productive. Allergies Allergy/AdvReac Type Severity Reaction Status Date / Time oxaliplatin Allergy Intermediate "HOT & Verified 02/27/25 00:23 ITCHY" IMMEDIATELY vancomycin Allergy Intermediate "HOT & Verified 02/27/25 00:23 ITCHY" IMMEDIATELY Home Medications Medication Instructions Recorded Confirmed Type apixaban 5 mg tablet (Eliquis) 5 mg PO BID 02/02/25 02/27/25 History buspirone 10 mg tablet 10 mg PO BID 02/02/25 02/27/25 History escitalopram oxalate 20 mg tablet 20 mg PO DAILY 02/02/25 02/27/25 History famotidine 20 mg tablet 20 mg PO BID 02/02/25 02/27/25 History lorazepam 0.5 mg tablet 0.5 mg PO TID PRN Anxiety 02/02/25 02/27/25 History pregabalin 50 mg capsule 50 mg PO BID #30 caps 02/06/25 02/27/25 Rx hydromorphone 4 mg tablet 4 mg PO Q4H PRN severe cancer pain 02/18/25 02/27/25 Rx (Dilaudid) 1 month #180 tabs ondansetron 8 mg disintegrating 8 mg PO Q8H PRN Nausea 02/24/25 02/27/25 History tablet methocarbamol 500 mg tablet 1,000 mg PO QID PRN NEEDED PER 02/27/25 02/27/25 History PT Patient History Medical History Nausea & vomiting Small bowel obstruction Peritonitis Abdominal pain Acute diverticulitis History of Clostridium difficile infection diagnosed 02/09/24 while admitted in hospital - treated with Vancomycin until 02/27/24 Colostomy present done 02/04/24 stoma revised 02/06/24 with an additional 4.5cm of the colon removed History of diverticulitis history of multiple flares over the past year Hx of deep venous thrombosis (2010) - s/p childbirth in 2010- was on blood thinner for short time - no DVT noted with PE on 02/16/24 Hx of migraines History of panic attacks History of pulmonary embolism dx 02/16/24 at [place]>started on Eliquis provoked by malignancy and surgical intervention per records dopplers negative for DVT Adenocarcinoma of colon dx'ed 01/2024 Perforated sigmoid colon - 02/03/24 due to enlarging mass (adenocarcinoma of the colon) - 02/04/24 underwent partial left colon resection and end colostomy Depression with anxiety Surgical History Hx of hysterectomy Port-A-Cath in place (03/13/24) Insertion of Access Port with Fluoroscopy into Right Internal Jugular Vein(Right) - Elizabeth Velasquez DO [place] teeth removed H/O abdominal surgery (02/05/24) Exploratory Laparoscopy Revision of Colostomy and Stoma(Not Applicable) - Elizabeth Velasquez DO History of x 2 H/O gastric sleeve (2021) History of colon resection (02/04/24) p Diagnostic Laparoscopy, with a laparoscopic colon resection, Abdominal Wash Out, Creation Colostomy(Not Applicable) - Elizabeth Velasquez DO Extensive lysis of adhesions Family History Other No family history of adverse response to anesthesia Social History Smoking Status: Never smoker Second Hand Exposure: No; Do You Dip or Chew Tobacco: No; Hx Alcohol Use: No Hx Substance Use: No Preferred Language: Monegasque Communication Ability: Effective Visual Impairment: No Limitations Seasoning Sprayer Required: No Beliefs That Will Affect Care: None Current Living Situation: Spouse Current Living Situation Comment: Home Feels Safe at Home: Yes Assistive Devices: None Review of Systems 2 Review of Systems: All systems reviewed & are unremarkable except as noted in HPI & below Physical Exam 2 Physical Exam: VITALS: Reviewed. WEIGHT/BMI reviewed. GEN: Pleasant, well-developed, NAD. PSYCH: Good Judgment. AOx3. Normal memory, mood, and affect. HEENT -Head: NC/AT; -Eyes: PERRL, EOMI. No discharge or redn ess; -Ears: External ears are normal. -Nose: Normal nares. NECK: Supple, with no masses. CV: RRR, no m/r/g. LUNGS: Clear in b/l upper lobes, diminished in b/l lower lobes, chest rise symmetrical, breathing nonlabored. ABD: N/A : N/A SKIN: Warm, well perfused. No skin rashes or abnormal lesions. MSK: No deformities, Normal gait. EXT: No clubbing, cyanosis, or edema. NEURO: Normal muscle strength and tone. No focal deficits. Results & Data Results & Data Vital Signs (Past 12 Hours) Vital Signs Temp Pulse Pulse Resp BP BP Pulse Ox 03/05/25 19:15 104 H 22 L 96 03/05/25 19:11 36.9 C 104 H 14 146/106 H 96 03/05/25 15:33 36.6 C 108 H 20 137/99 95 03/05/25 15:17 105 H 16 95 03/05/25 11:22 36.7 C 98 H 20 147/110 H 136/94 97 03/05/25 10:00 O2 Del Method O2 Flow Rate 03/05/25 19:15 Nasal Cannula 2 03/05/25 19:11 Nasal Cannula 2 03/05/25 15:33 Nasal Cannula 2 03/05/25 15:17 Nasal Cannula 2 03/05/25 11:22 Nasal Cannula 03/05/25 10:00 Nasal Cannula 2 Laboratory Results 03/05/25 06:07 03/05/25 14:34 03/05/25 03/05/25 03/05/25 Range/Units 16:35 14:34 14:34 WBC (4.8-10.8) K/ul RBC (4.20-5.40) M/uL Hgb (12.0-16.0) g/dL Hct (37.0-47.0) % MCV (80.0-100.0) fL MCH (25.0-34.0) pg MCHC (32.0-36.0) g/dL RDW Std Deviation (36.4-46.3) fL RDW Coeff of Mita (11.5-14.5) % Plt Count (130-400) K/uL MPV (9.4-12.4) fL Heparin Anti-Xa, Unfract 0.20 L (0.3-0.7) IU/ml Sodium 136 (136-145) mmol/L Potassium 3.8 D (3.5-5.1) mmol/L Chloride 104 (98-107) mmol/L Carbon Dioxide 22 (21-32) mmol/L Anion Gap 10 (3-11) BUN 9 (6-23) mg/dl Creatinine 0.53 L (0.6-1.2) mg/dl Est Cr Clr Drug Dosing 129.6 ml/min eGFR 117.61 BUN/Creatinine Ratio 17.0 (10-20) Glucose 115 H (70-99(Fasting)) mg/dl Calcium 7.6 L (8.6-10.3) mg/dl Phosphorus (2.5-4.9) mg/dl Magnesium 2.0 Cancelled (1.7-2.4) mg/dl Nasal Screen MRSA (PCR) Positive A (Negative) 03/05/25 Range/Units 06:07 WBC 12.47 H (4.8-10.8) K/ul RBC 3.14 L (4.20-5.40) M/uL Hgb 7.8 L (12.0-16.0) g/dL Hct 24.5 L (37.0-47.0) % MCV 78.0 L (80.0-100.0) fL MCH 24.8 L (25.0-34.0) pg MCHC 31.8 L (32.0-36.0) g/dL RDW Std Deviation 51.8 H (36.4-46.3) fL RDW Coeff of Mita 18.3 H (11.5-14.5) % Plt Count 247 (130-400) K/uL MPV 10.0 (9.4-12.4) fL Heparin Anti-Xa, Unfract < 0.10 L (0.3-0.7) IU/ml Sodium 137 (136-145) mmol/L Potassium 3.0 L (3.5-5.1) mmol/L Chloride 105 (98-107) mmol/L Carbon Dioxide 22 (21-32) mmol/L Anion Gap 10 (3-11) BUN 11 (6-23) mg/dl Creatinine 0.51 L (0.6-1.2) mg/dl Est Cr Clr Drug Dosing 134.7 ml/min eGFR 118.71 BUN/Creatinine Ratio 21.6 H (10-20) Glucose 106 H (70-99(Fasting)) mg/dl Calcium 7.6 L (8.6-10.3) mg/dl Phosphorus 2.7 (2.5-4.9) mg/dl Magnesium 1.6 L (1.7-2.4) mg/dl Nasal Screen MRSA (PCR) (Negative) Diagnostic Findings Chest CT 03/05/25 13:23 CT chest diagnostic wo con CT DOSE: 443.65 mGy.cm CLINICAL HISTORY: Pna under Rx, now w/ increasing O2 need. TECHNIQUE: Multiaxial CT images of the chest were performed without contrast. A dose lowering technique was utilized adhering to the principles of ALARA. COMPARISON STUDY: 02/02/2025 FINDINGS: There are bilateral pleural effusions, moderate on the right small on the left, increased. There is increased bandlike and patchy consolidation in the lower lung lobes, right greater than left. There is increased scattered patchy groundglass opacity in the upper lobes, left greater than right. No pneumothorax seen. No enlarged adenopathy. The esophagus is fluid-filled and mildly dilated. Represent reflux or reduced esophageal motility. No pericardial effusion. Masses at the upper liver are grossly stable. No acute osseous finding seen. IMPRESSION: Increased pneumonia and increased pleural effusions. ACT 112: Negative or not required by law. Electronically signed by: Ricardo Green M.D. 03/05/2025 3:09 PM PG Care Time/CCT Total # of Minutes Spent Total Time Spent with Patient: Total time spent is greater than 50% in coordination of care (as documented) at patient's floor/unit and/or counseling patient: Coding Level of Care Code 26950 OFFICE CONSULT LVL 4/40M Diagnoses Pulmonary embolism I26.99 Acute cor pulmonale presence: unspecified Chronicity: acute Pulmonary embolism type: unspecified Pleural effusion J90 Multifocal pneumonia J18.8
[2025-03-05] MEDS: DOXYCYCLINE HYCLATE 100 MG in DEXTROSE 5% MINI-B 100 ML IV SCH (20:19)
[2025-03-05 22:28] LABS: ANTI-Xa, UFH(UnfractionatedHep 0.14 IU/ml (0.3-0.7)
[2025-03-05 22:59] LABS: Chlamydia pneumoniae PCR Not Detected (NotDetected); Coronavirus 229E PCR Not Detected (NotDetected); Coronavirus CoV-2 (COVID19)PCR Not Detected (NotDetected); Coronavirus HKU1 PCR Not Detected (NotDetected); Coronavirus NL63 PCR Not Detected (NotDetected); Coronavirus OC43PCR Not Detected (NotDetected); Human Metapneumovirus PCR Not Detected (NotDetected); Parainfluenza Virus 1 PCR Not Detected (NotDetected); Parainfluenza Virus 2 PCR Not Detected (NotDetected); Parainfluenza Virus 3 PCR Not Detected (NotDetected); Parainfluenza Virus 4 PCR Not Detected (NotDetected); Respiratory Syncytial VirusPCR Not Detected (NotDetected); Rhinovirus/Enterovirus PCR Not Detected (NotDetected)
[2025-03-06] MEDS ORDERED: VANCOMYCIN CONSULT ACTIVE PRN (00:30)
[2025-03-06] MEDS: diphenhydrAMINE 50 MG/ML VIAL IV STA (01:41)
[2025-03-06] MEDS: VANCOMYCIN HCL 1,500 MG in SODIUM CHLORIDE 0.9% 500 ML IV ONE (02:13)
--- NOTE | 2025-03-06 03:33 | Pharmacy Report ---
Pharmacy PK ABX Note - Date of Service March 06, 2025 - Assessment and Plan Assessment 44 year old F receiving vancomycin/cefepime/doxycycline for treatment of multifocal pneumonia (increasing O2 requirements today) and IV fluconazole for urinary tract infection. Pertinent microbiologic data includes: Positive MRSA Nasal Swab, urine culture 02/27/25 growing randi albicans. 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 Will double length of infusion and pre-treat with diphenhydramine (ordered by pulm). Possibly could increase vancomycin dilution if needed. Patient is not a great linezolid candidate due to multiple serotonergic medications and daptomycin is not recommended for pneumonia treatment. Would recommend ID consult if not tolerating vancomycin for other treatment options. Day # 1 of vancomycin therapy. Plan Vancomycin * Loading dose: 1500 mg IV x 1 over ~5 hours. * Maintenance dose: 1000 mg IV every 8 hours over 3 hours * Regimen is predicted to achieve target AUC/ASH of 400-600 mg/L.hr * Trough level ordered for: 03/07/25 @0930 Pharmacy will continue to follow and will adjust dose/frequency as necessary. Thank you. Pharmacy has transitioned to AUC monitoring for vancomycin. AUC/ASH is the preferred PK/PD target and is associated with decreased risk of nephrotoxicity compared to traditional trough targets.
[2025-03-06 05:24] LABS: Hematocrit (blood only) 25.5 % (37.0-47.0); Hemoglobin 7.8 g/dL (12.0-16.0); Mean Corpuscular Hemoglobin 24.2 pg (25.0-34.0); Mean Corpuscular Volume 79.2 fL (80.0-100.0); Platelet Count 314 K/uL (130-400); RDW Standard Deviation 52.8 fL (36.4-46.3); Red Blood Count 3.22 M/uL (4.20-5.40); White Blood Count 15.82 K/ul (4.8-10.8)
[2025-03-06 05:42] LABS: Anion Gap 7.0 (3-11); Blood Urea Nitrogen 10.0 mg/dl (6-23); Calcium 7.5 mg/dl (8.6-10.3); Carbon Dioxide 23.0 mmol/L (21-32); Chloride 105.0 mmol/L (98-107); Creatinine Clr Calc Pharmacy 120.5 ml/min; Glucose 118.0 mg/dl (70-99(Fasting)); Magnesium 1.6 mg/dl (1.7-2.4); Potassium 3.9 mmol/L (3.5-5.1); Sodium 135.0 mmol/L (136-145)
[2025-03-06 05:56] LABS: ANTI-Xa, UFH(UnfractionatedHep 0.26 IU/ml (0.3-0.7)
[2025-03-06] MEDS ORDERED: POTASSIUM PHOS 3 MMOL/1 ML INFUSION IV STA (08:13)
[2025-03-06] MEDS: MAGNESIUM SULFATE / D5W 1 GM/100 ML BAG IV SCH (08:24)
--- NOTE | 2025-03-06 08:28 | Electrocardiogram Report ---
Test Reason : Blood Pressure : */* mmHG Vent. Rate : 114 BPM Atrial Rate : 114 BPM P-R Int : 122 ms QRS Dur : 74 ms QT Int : 314 ms P-R-T Axes : 11 -8 48 degrees QTcB Int : 432 ms Sinus tachycardia Poor R wave progression, consider anterior [place] vs. lead placement vs. LVH Abnormal ECG When compared with ECG of 05-Mar-2025 06:33, No significant change was found Confirmed by Reynaldo Cash ([id number]) on 03/06/2025 8:28:25 AM Referred By: REFERRED SELF Confirmed By: Reynaldo Cash
[2025-03-06] MEDS: POTASSIUM PHOSPHATE 15 MMOL in SODIUM CHLORIDE 0.9% 250 ML IV ONE (08:48)
[2025-03-06] MEDS: diphenhydrAMINE 50 MG/ML VIAL IV SCH (09:21)
[2025-03-06] MEDS: VANCOMYCIN HCL / NSS 1,000 MG/270 ML BAG IV SCH (10:17)
--- NOTE | 2025-03-06 10:18 | Procedure Note ---
Procedure Note Date of Service March 06, 2025 Procedure: Diagnostic therapeutic ultrasound-guided catheter thoracentesis In Shop Service Technician: Dr. Jose David Palafox Indication: Pleural effusion Consent: Signed by patient and verified with timeout prior to procedure Anesthesia: 8 mL's 1% lidocaine without epinephrine local. Procedure: Consent was verified and timeout performed. Appropriate imaging studies were reviewed prior to the procedure. Patient was placed in a seated position and limited thoracic ultrasound was performed of the bilateral chest. A very small right-sided effusion was noted with significant lung consolidation. Lung consolidation was noted on the left. The skin was prepped and draped in normal sterile fashion on the right. Lidocaine was used for local analgesia. An initial attempt was made but the tap was dry even under ultrasound guidance. The patient had did reposition several times due to pain and nausea which caused the fluid pocket to shift. A second attempt was made about 2 interspaces higher however this was also a dry tap. Patient had significant pain and nausea at that point time and it was felt appropriate to abort given the small amount of fluid localized on the ultrasound. Band-Aids were applied and the patient was returned to bed. If additional attempts at thoracentesis are needed, interventional radiology will be involved [facility] Procedure Codes (Charges) Pulmonary/Thoracic Procedure 1: Pulmonary and Thoracic: 06357 Thoracentesis w imaging Coding CPT Codes Pulmonary/Thoracic - Pulmonary and Thoracic: 12186 Thoracentesis w imaging ([id number]) Additional Codes Date of Service ([email or web address])
--- NOTE | 2025-03-06 10:21 | Pulmonology Progress Note ---
Date of Service March 06, 2025 Assessment & Plan (1) Pulmonary embolism: Acute cor pulmonale presence: unspecified Chronicity: acute Pulmonary embolism type: unspecified Qualified Code(s): I26.99 - Other pulmonary embolism without acute cor pulmonale (2) Pleural effusion: (3) Multifocal pneumonia: Plan Impression: Deanna King is a 44-year-old female with past medical history of metastatic colon adenocarcinoma w/ mets to liver and peritoneum, diverticulitis w/ perforation s/p colectomy and end colostomy placement, small bowel obstruction, C. Diff, iron deficiency anemia, DVT, PE, migraines, depression, and anxiety; who presented to [facility] on 02/26/2025 for abdominal pain, N/V, and poor PO intake. On 03/05/[address] showed bilateral pleural effusions R>L, patchy ground glass infiltrates noted in the bilateral upper lobes with dense consolidations in the bilateral lower lobes. Pulmonary was consulted for concern of multifocal pneumonia and worsening pleural effusions in setting of metastatic colon adenocarcinoma and SBO. Recommendations: 1. Multifocal pneumonia Agree with cefepime Doxy and vancomycin. Given complexity, consider ID consultation 2. Bilateral pleural effusions Attempted thoracentesis 03/06/2025. Dry tap. Ultrasound demonstrated the fluid collection to be relatively small. Would follow at this point in time. If the effusions increase in size, white blood cell count remains elevated, or patient fails to respond clinically, repeat evaluation might be warranted although the patient would likely require IR guided sampling at that point in time versus thoracic surgery evaluation for thoracoscopic washout. Cannot rule out infectious versus malignant etiology 3. Pulmonary Embolism Heparin held for thoracentesis. Can restart in 4 hours without bolus. Lifelong anticoagulation given underlying malignancy Will follow with you Admission and Anticipated Discharge Date Admission Date: February 27, 2025 Subjective Patient seen and examined. EMR reviewed. Discussed with bedside nurses. The patient reports feeling poorly in general. She is experiencing nausea. This has been relieved with Zofran. She does not report any cough or sputum production Review of Systems Review of Systems: All systems reviewed & are unremarkable except as noted in Subjective Physical Exam Constitutional: + ill appearing Eyes: PERRL, conjunctivae normal, anicteric sclerae Respiratory: no respiratory distress, no labored breathing, no cough and not tachypneic Auscultation: + diminished lung sounds Cardiovascular: RRR, no murmur, no edema Gastrointestinal (Abdomen): Soft, nontender, right lower quadrant ostomy with bilious output Skin: no rashes, warm and dry Psychiatric: A+Ox3, euthymic affect Results & Data Results & Data Vital Signs (Past 12 Hours) Vital Signs Temp Pulse Pulse Resp BP Pulse Ox O2 Del Method 03/06/25 09:00 Room Air 03/06/25 07:54 36.8 C 121 H 22 126/88 90 Nasal Cannula 03/06/25 07:03 110 H 16 98 Nasal Cannula 03/06/25 03:17 37 C 107 H 17 136/104 H 97 Nasal Cannula 03/05/25 22:45 Nasal Cannula 03/05/25 22:20 37.1 C 106 H 14 138/98 91 Room Air O2 Flow Rate 03/06/25 09:00 03/06/25 07:54 2 03/06/25 07:03 2 03/06/25 03:17 2 03/05/25 22:45 2 03/05/25 22:20 Critical Care Results & Data Vital Signs (Past 12 Hours) Vital Signs Temp Pulse Pulse Resp BP Pulse Ox O2 Del Method 03/06/25 09:00 Room Air 03/06/25 07:54 36.8 C 121 H 22 126/88 90 Nasal Cannula 03/06/25 07:03 110 H 16 98 Nasal Cannula 03/06/25 03:17 37 C 107 H 17 136/104 H 97 Nasal Cannula 03/05/25 22:45 Nasal Cannula 03/05/25 22:20 37.1 C 106 H 14 138/98 91 Room Air O2 Flow Rate 03/06/25 09:00 03/06/25 07:54 2 03/06/25 07:03 2 03/06/25 03:17 2 03/05/25 22:45 2 03/05/25 22:20 Lab & Micro Results (Past 24 Hours) RBC 3.22 M/uL (4.20-5.40) L 03/06/25 WBC 15.82 K/ul (4.8-10.8) H 03/06/25 Hgb 7.8 g/dL (12.0-16.0) L 03/06/25 Hct 25.5 % (37.0-47.0) L 03/06/25 MCV 79.2 fL (80.0-100.0) L 03/06/25 MCH 24.2 pg (25.0-34.0) L 03/06/25 MCHC 30.6 g/dL (32.0-36.0) L 03/06/25 RDW Standard Deviation 52.8 fL (36.4-46.3) H 03/06/25 RDW Coefficient of Variation 18.5 % (11.5-14.5) H 03/06/25 Plt Count 314 K/uL (130-400) 03/06/25 MPV 10.0 fL (9.4-12.4) 03/06/25 Na 135 mmol/L (136-145) L 03/06/25 K 3.9 mmol/L (3.5-5.1) 03/06/25 Cl 105 mmol/L (98-107) 03/06/25 CO2 23 mmol/L (21-32) 03/06/25 Anion Gap 7 (3-11) 03/06/25 BUN 10 mg/dl (6-23) 03/06/25 Creatinine 0.57 mg/dl (0.6-1.2) L 03/06/25 BUN/Creatinine Ratio 17.5 (10-20) 03/06/25 Glu 118 mg/dl (70-99(Fasting)) H 03/06/25 Ca 7.5 mg/dl (8.6-10.3) L 03/06/25 Phosphorus Level 2.0 mg/dl (2.5-4.9) L 03/06/25 Mg 1.6 mg/dl (1.7-2.4) L 03/06/25 05:04 Calcium Level 7.5 mg/dl (8.6-10.3) L 03/06/25 05:04 Microbiology 03/06/25 Unknown Gram Stain - Final Sputum, Expectorated Diagnostic Findings (Past 24 Hours) Chest CT 03/05/25 13:23 CT chest diagnostic wo con CT DOSE: 443.65 mGy.cm CLINICAL HISTORY: Pna under Rx, now w/ increasing O2 need. TECHNIQUE: Multiaxial CT images of the chest were performed without contrast. A dose lowering technique was utilized adhering to the principles of ALARA. COMPARISON STUDY: 02/02/2025 FINDINGS: There are bilateral pleural effusions, moderate on the right small on the left, increased. There is increased bandlike and patchy consolidation in the lower lung lobes, right greater than left. There is increased scattered patchy groundglass opacity in the upper lobes, left greater than right. No pneumothorax seen. No enlarged adenopathy. The esophagus is fluid-filled and mildly dilated. Represent reflux or reduced esophageal motility. No pericardial effusion. Masses at the upper liver are grossly stable. No acute osseous finding seen. IMPRESSION: Increased pneumonia and increased pleural effusions. ACT 112: Negative or not required by law. Electronically signed by: Ricardo Green M.D. 03/05/2025 3:09 PM I & O Totals 24 Hours 03/05/25 03/06/25 03/07/25 06:59 06:59 06:59 Intake Total 3762.799 / 3762.799 3495.450 / 3495.450 1448.5 / 1448.5 Output Total 0 / 0 Balance 3762.799 / 3762.799 3495.450 / 3495.450 1448.5 / 1448.5 Cumulative 02/26/25 22:48 thru 03/06/25 10:15 Intake Total 03199.949 Output Total 126 Balance 60008.949 RT Ventilator Mngmt (Last Documented) Ventilator Ordered Settings Respiratory Rate 22 03/06/25 07:54 Ventilator - PT Measurements Respiratory Rate 22 PG Care Time/CCT Total # of Minutes Spent Total Time Spent with Patient: Total time spent is greater than 50% in coordination of care (as documented) at patient's floor/unit and/or counseling patient: Coding Level of Care Code 28224 SUB INP/OBS CARE 2/35MIN Diagnoses Pulmonary embolism I26.99 Acute cor pulmonale presence: unspecified Chronicity: acute Pulmonary embolism type: unspecified Pleural effusion J90 Multifocal pneumonia J18.8
--- NOTE | 2025-03-06 12:08 | Hospitalist Progress Note ---
Date of Service March 06, 2025 Assessment & Plan (1) Abdominal pain: Plan: 44-year-old female with past medical history significant for metastatic colon adenocarcinoma mets to liver and peritoneum, perforated diverticulitis/adenocarcinoma status post colostomy, pulm embolism on Eliquis, C. difficile s/p treatment, anxiety and depression, iron deficiency anemia presents with abdominal pain. Patient is having ongoing pain for several weeks now. This is her third admission since last 1 month. Patient is status post right ureteral stent on and supposed to follow-up outpatient for stent removal. She was on Bactrim and amoxicillin for postop hepatic abscess, says no longer on antibiotics. She was again admitted 06 of February for small bowel obstruction and was discharged on 02/08/2025. Patient is followed with palliative care. Currently on p.o. Dilaudid 4 mg every 3 hours as needed for pain. Patient says Dilaudid is causing her nauseous. States abdominal pain is not getting better. She is having a lot of nausea and vomiting. She says not eating because of nausea. She is being managed for the following: Partial SBO: Patient presents with abdominal pain and persistent nausea and vomiting with decreased p.o. intake. Metastatic colon cancer Patient presents with abdominal pain, nausea, vomiting, decreased p.o. intake. Status post EGD 03/02, large amount of retained fluid in the stomach and esophagus noted suggestive of partial obstruction. LA grade D reflux esophagitis with bleeding noted. Biopsies were taken----> follow-up on biopsy results. Status post CTAP with IV contrast 03/02: Noted multifocal pneumonia in the lung bases bilaterally. Noted small bowel obstruction. Noted findings concerning for possible right pyelonephritis. Per prior attending: Patient's surgical oncologist Dr. Johnson reached out on March 01, 2025. I provided update on patient's current condition. He reports that unfortunately patient does have recurrence of colon cancer given elevated tumor markers. The initial plan was reversal of the colostomy- which will be kept on hold for the time being as it will delay patient to obtain chemotherapy. He also asked me to discuss with patient if she wants to follow- up with local oncology for chemotherapy. I updated the patient about my discussion with her surgical oncologist on March 02, 2025; she verbalized understanding. She wants to follow-up at [facility] oncology. She reports that PET/CT is still not done yet; would like to follow-up with them to have it done. Pt reports better control of N, V. Is tolerating clears now. Continue on Compazine, Zofran and Phenergan as needed for nausea/vomiting. DC'd zyprexa 03/03 as pt not taking/also risk of QT prolongation given fluconazole and zofran use. AZAM craft, emiliana eval. General surgery on board, will follow ongoing recommendation. Continue with PPI. and multivitamins with minerals, IV thiamine, IV folic acid. Continue with D5 half NS w/ KCL. Monitor and replete electrolytes. Phosphorous and Mg replaced today. Acute UTI/ Possible right pyelonephritis Abdominal pain, hydroureteronephrosis Pt presents with abdominal pain mostly on left. Of note, patient recently presented with right-sided abdominal pain status post right ureteral stent placement February 03, 2025 with improvement in the pain. Admitting CTAP with mild left-sided hydronephroureterosis Patient underwent cystoscopy with left ureteral stent placement February 08, 2025, reports improvement in her left abdominal pain. Urine culture grew Salma multiple times, given recent ureteral procedure; pt started on fluconazole for candiduria. Plan to treat for 2 weeks. Monitor EKG. qtc 432 on 03/06 Follow-up with urology upon discharge. Multifocal pneumonia: concern for mutlifocal pna on lung bases noted on 03/02 CTAP with IV contrast. Started cefepime 03/03, WBC trended up/pt needed O2, hence CT chest obtained 03/05 which showed increasing pneumonia and increased pleural effusion. Pulm consulted, recs are doxy, cefepime, vanc; ID consult. Recommend repeat CT chest in about 6 weeks time to document resolution of pneumonia. Anemiahemoglobin about 8, s/p EGD - see above, c/w iv ppi. History of PE: On Eliquis- resumed after EGD, now on hep drip as pt not able to take po. Anxiety and depression: On Lexapro, BuSpar and Ativan as needed. Resume once patient is able to take p.o. GERD: on protonix-continue DVT prophylaxis: On Heparin drip Disposition: Medical floor Full code. Please note the above document was generated using voice recognition software. It may contain grammatical, syntax or spelling errors. Any formal questions or concerns about the content, text or information contained within the body of this dictation should be directly addressed to the provider for clarification Admission and Anticipated Discharge Date Admission Date: February 27, 2025 Subjective Patient seen and examined. Pt reports better control of nausea, vomiting today, infact she states "it has been best in last month". She states being able to tolerate liquid diet. Pt reported cough with some sputum which has been sent to lab. Pt denies fever, sob, chest pain. reports abd pain under control. Physical Exam Physical Exam: Constitutional: on RA, NAD. Respiratory: Bilateral occ rales Cardiovascular: RRR, no murmur, no edema Vessels: no JVD or carotid bruit Chest: normal inspection of chest Abdomen: soft, No epigastric tender. colostomy bag with good amount of liquid output Musculoskeletal: no cyanosis or clubbing, extremities motor strength 5/5 Skin: no rashes, warm and dry normal turgor Neurologic: PERRL, EOMI, accommodation nl, no face palsy, no dysarthria CN's II- XI intact bilaterally and moves all extremities Results & Data Results & Data Vital Signs (Past 12 Hours) Vital Signs Temp Pulse Pulse Resp BP Pulse Ox O2 Del Method 03/06/25 11:48 36.7 C 116 H 18 132/90 90 Nasal Cannula 03/06/25 09:00 Room Air 03/06/25 07:54 36.8 C 121 H 22 126/88 90 Nasal Cannula 03/06/25 07:03 110 H 16 98 Nasal Cannula 03/06/25 03:17 37 C 107 H 17 136/104 H 97 Nasal Cannula O2 Flow Rate 03/06/25 11:48 2 03/06/25 09:00 03/06/25 07:54 2 03/06/25 07:03 2 03/06/25 03:17 2
[2025-03-06] MEDS: CALCIUM CARBONATE 500 MG CHEWABLE TAB PO PRN (12:31)
[2025-03-06 12:50] LABS: ANTI-Xa, UFH(UnfractionatedHep < 0.10 IU/ml (0.3-0.7)
--- NOTE | 2025-03-06 13:25 | Surgery Progress Note ---
Date of Service March 06, 2025 Assessment & Plan (1) Partial small bowel obstruction: (2) Abdominal pain: (3) Nausea & vomiting: Plan Patient appears to be recovering from her small bowel obstruction, has been able to tolerate clear liquid diet with minimal nausea and single episode of vomiting which appeared to be related to positioning for her thoracentesis earlier today. Her ileostomy is functioning with copious liquid succus noted. We would recommend continuing on clear liquids for today and will consider advancing to full liquids tomorrow. Remainder of her care per the hospitalist team, general surgery will continue to follow. Admission and Anticipated Discharge Date Admission Date: February 27, 2025 Supervising Physician Co-Signing Physician Notes I have seen and examined this pt this am. She feels improved today. States she had some back and abdominal pain with attempted thoracentesis but that resolved after the thoracentesis attempt was aborted. She denies pulmonary symptoms of SOB or cough. Currently her nausea continues to be resolved and she has been able to keep down clears since starting last night. She also states her ileostomy is now functioning as normal with a copious amount of air and succus output in the bag. Deanna says her ileostomy has not put this amount our for a month during the period that she has been nauseous at home with the inability to tolerate oral intake. Leukocytosis slightly worse, pt also had exposure to steroid from breathing treatment. Would not advance past clears as of yet and continue clears for today Ambulate as much as possible today Would not give Albuterol secondary to episodes of tachycardia with this medication. Surgery will continue to follow Subjective Patient currently states that she feels tired, does admit to some back pain, currently denies any abdominal pain. She states that she has been able to tolerate clear liquid diet, but does admit to feeling nauseous this morning and states that she did vomit, however then clarifies that the vomit was clear and could have been phlegm due to coughing. She does admit to noticing more output from her ileostomy, liquid. Patient further admits that she has had persistent nausea and vomiting for the last several months, since her gastric sleeve performed in . She denies any fevers or chills, denies any shortness of breath or dyspnea, however has been mildly tachycardic. She had a CAT scan of the chest yesterday which showed a right pleural effusion and likely pneumonia. White blood cell count was elevated today at 15.8, up from yesterday at 12.4, afebrile, but for this a thoracentesis was attempted today by the relay worker, however was unsuccessful. Physical Exam Physical Exam: Gen: Awake and alert, resting comfortably in bed in NAD CV: RRR PULM: non-labored breathing Abd: Abd soft, non-tender, non-distended, ostomy to right lower quadrant with liquid succus in bag, stoma looks pink and viable. ext: no edema to bilateral lower ext, SCDs in place, non-tender, feet warm and well perfused Results & Data Vital Signs (Past 12 Hours) Vital Signs Temp Pulse Pulse Resp BP Pulse Ox O2 Del Method 03/06/25 13:03 78 16 91 Room Air 03/06/25 11:48 36.7 C 116 H 18 132/90 90 Nasal Cannula 03/06/25 09:00 Room Air 03/06/25 07:54 36.8 C 121 H 22 126/88 90 Nasal Cannula 03/06/25 07:03 110 H 16 98 Nasal Cannula 03/06/25 03:17 37 C 107 H 17 136/104 H 97 Nasal Cannula O2 Flow Rate 03/06/25 13:03 03/06/25 11:48 2 03/06/25 09:00 03/06/25 07:54 2 03/06/25 07:03 2 03/06/25 03:17 2 PG Care Time/CCT Total # of Minutes Spent Total Time Spent with Patient: Total time spent is greater than 50% in coordination of care (as documented) at patient's floor/unit and/or counseling patient: Coding [place] [address] SUB INP/OBS CARE 05/02MIN Patient Type Established Diagnoses Partial small bowel obstruction K56.600 Generalized abdominal pain R10.84 Abdominal location: generalized Vomiting of fecal matter with nausea R11.13 Vomiting type: vomiting of fecal matter (2) Abdominal pain Abdominal location: generalized Qualified Code(s): R10.84 - Generalized abdominal pain (3) Nausea & vomiting Vomiting type: vomiting of fecal matter Qualified Code(s): R11.13 - Vomiting of fecal matter
[2025-03-06 20:52] LABS: ANTI-Xa, UFH(UnfractionatedHep 0.24 IU/ml (0.3-0.7)
[2025-03-07 04:20] LABS: ANTI-Xa, UFH(UnfractionatedHep 0.28 IU/ml (0.3-0.7)
[2025-03-07 04:21] LABS: Hematocrit (blood only) 22.2 % (37.0-47.0); Hemoglobin 6.8 g/dL (12.0-16.0); Mean Corpuscular Hemoglobin 24.7 pg (25.0-34.0); Mean Corpuscular Volume 80.7 fL (80.0-100.0); Platelet Count 199 K/uL (130-400); RDW Standard Deviation 54.7 fL (36.4-46.3); Red Blood Count 2.75 M/uL (4.20-5.40); White Blood Count 11.19 K/ul (4.8-10.8)
[2025-03-07 04:25] LABS: Anion Gap 6.0 (3-11); Blood Urea Nitrogen 12.0 mg/dl (6-23); Calcium 7.5 mg/dl (8.6-10.3); Carbon Dioxide 22.0 mmol/L (21-32); Chloride 105.0 mmol/L (98-107); Creatinine Clr Calc Pharmacy 98.2 ml/min; Glucose 107.0 mg/dl (70-99(Fasting)); Magnesium 1.7 mg/dl (1.7-2.4); Potassium 4.8 mmol/L (3.5-5.1); Sodium 133.0 mmol/L (136-145)
--- NOTE | 2025-03-07 04:37 | Communication Note ---
Date of Service: March 07, 2025 A.m. hemoglobin 6.8 from 7.8 yesterday as per RN. No obvious bleed as per RN. AP Progressive anemia No obvious bleed for now Possibly dilutional Hold IVF Recheck H&H after 4 hours Defer decision for blood transfusion to a.m. provider.
[2025-03-07 07:22] LABS: Hematocrit (blood only) 23.3 % (37.0-47.0); Hemoglobin 7.1 g/dL (12.0-16.0)
[2025-03-07] MEDS ORDERED: ALBUT/IPRATROP 3MG/0.5MG NEB 3 ML VIAL NEB PRN (08:28)
[2025-03-07] MEDS: VANCOMYCIN LEVEL ONE (09:00)
--- NOTE | 2025-03-07 09:06 | Pulmonology Progress Note ---
Date of Service March 07, 2025 Assessment & Plan (1) Pulmonary embolism: Acute cor pulmonale presence: unspecified Chronicity: acute P ulmonary embolism type: unspecified Qualified Code(s): I26.99 - Other pulmonary embolism without acute cor pulmonale (2) Pleural effusion: (3) Multifocal pneumonia: Plan Impression: Deanna King is a 44-year-old female with past medical history of metastatic colon adenocarcinoma w/ mets to liver and peritoneum, diverticulitis w/ perforation s/p colectomy and end colostomy placement, small bowel obstruction, C. Diff, iron deficiency anemia, DVT, PE, migraines, depression, and anxiety; who presented to [facility] on 02[facility]25 for abdominal pain, N/V, and poor PO intake. On 03/05/[address] showed bilateral pleural effusions R>L, patchy ground glass infiltrates noted in the bilateral upper lobes with dense consolidations in the bilateral lower lobes. Pulmonary was consulted for concern of multifocal pneumonia and worsening pleural effusions in setting of metastatic colon adenocarcinoma and SBO. Recommendations: 1. Multifocal pneumonia Agree with cefepime Doxy and vancomycin. Given complexity, recommend ID consultation 2. Bilateral pleural effusions Attempted thoracentesis 03/06/2025. Dry tap. Ultrasound demonstrated the fluid collection to be relatively small. Would follow at this point in time. Check chest x-ray in AM. If the effusions increase in size, white blood cell count remains elevated, or patient fails to respond clinically, repeat evaluation might be warranted although the patient would likely require IR guided sampling at that point in time versus thoracic surgery evaluation for thoracoscopic washout. Cannot rule out infectious versus malignant etiology 3. Pulmonary Embolism On heparin Will follow with you Admission and Anticipated Discharge Date Admission Date: February 27, 2025 Subjective Patient seen and examined. EMR reviewed. The patient reports that she is doing okay clinically. She is off oxygen. She is not experiencing any increasing respiratory symptoms. She continues to have ongoing GI issues. No chest pain at thoracentesis site Review of Systems 2 Review of Systems: All systems reviewed & are unremarkable except as noted in Subjective Physical Exam 2 Constitutional: + ill appearing Eyes: PERRL, conjunctivae normal, anicteric sclerae Respiratory: no respiratory distress, no labored breathing, no cough and not tachypneic Auscultation: + diminished lung sounds Cardiovascular: RRR, no murmur, no edema Skin: no rashes, warm and dry Psychiatric: A+Ox3, euthymic affect Results & Data Results & Data Vital Signs (Past 12 Hours) Vital Signs Temp Pulse Pulse Pulse Resp BP Pulse Ox 03/07/25 07:46 36.8 C 113 H 20 127/87 90 03/07/25 07:43 84 18 98 03/07/25 02:55 36.9 C 86 16 137/89 93 03/06/25 22:53 37.1 C 115 H 20 130/94 96 03/06/25 22:30 111 H O2 Del Method O2 Flow Rate 03/07/25 07:46 Room Air 03/07/25 07:43 Nasal Cannula 2 03/07/25 02:55 Nasal Cannula 2 03/06/25 22:53 Nasal Cannula 2 03/06/25 22:30 Laboratory Results 03/07/25 07:00 03/07/25 03:10 Diagnostic Findings No new image PG Care Time/CCT Total # of Minutes Spent Total Time Spent with Patient: Total time spent is greater than 50% in coordination of care (as documented) at patient's floor/unit and/or counseling patient: Coding Level of Care Code 94988 SUB INP/OBS CARE 2/35MIN Diagnoses Pulmonary embolism I26.99 Acute cor pulmonale presence: unspecified Chronicity: acute Pulmonary embolism type: unspecified Pleural effusion J90 Multifocal pneumonia J18.8
[2025-03-07 11:22] LABS: ANTI-Xa, UFH(UnfractionatedHep 0.31 IU/ml (0.3-0.7)
--- NOTE | 2025-03-07 11:26 | Pharmacy Report ---
Pharmacy PK ABX Note - Date of Service March 07, 2025 - Assessment and Plan Assessment 03/07 * Sputum culture growing S. aureus, sensitivities pending * WBC downtrending, afebrile, tolerating vancomycin at slower rate * Infectious disease consulted * Random level today 15.5 mcg/mL correlates with achievement of target AUC/ASH 03/06 44 year old F receiving vancomycin/cefepime/doxycycline for treatment of multifocal pneumonia (increasing O2 requirements today) and IV fluconazole for urinary tract infection. Pertinent microbiologic data includes: Positive MRSA Nasal Swab, urine culture 02/27/25 growing randi albicans. 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 Will double length of infusion and pre-treat with diphenhydramine (ordered by pulm). Possibly could increase vancomycin dilution if needed. Patient is not a great linezolid candidate due to multiple serotonergic medications and daptomycin is not recommended for pneumonia treatment. Would recommend ID consult if not tolerating vancomycin for other treatment options. Day # 1 of vancomycin therapy. Plan Vancomycin * Loading dose: 1500 mg IV x 1 over ~5 hours. * Continue Maintenance dose: 1000 mg IV over 3 hours every 8 hours * Regimen is predicted to achieve target AUC/ASH of 400-600 mg/L.hr * Trough level to be ordered in 2-3 days or with significant renal function change Pharmacy will continue to follow and will adjust dose/frequency as necessary. Thank you. Pharmacy has transitioned to AUC monitoring for vancomycin. AUC/SAH is the preferred PK/PD target and is associated with decreased risk of nephrotoxicity compared to traditional trough targets.
[2025-03-07 13:05] LABS: Hematocrit (blood only) 23.2 % (37.0-47.0); Hemoglobin 7.1 g/dL (12.0-16.0)
[2025-03-07] MEDS ORDERED: POTASSIUM PHOS 3 MMOL/1 ML INFUSION IV STA (14:19)
[2025-03-07] MEDS ORDERED: SODIUM CHLORIDE 0.9% 100 ML IV PRN (14:21)
--- NOTE | 2025-03-07 14:31 | Hospitalist Progress Note ---
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 difficile s/p treatment, anxiety and depression, iron deficiency anemia presents with abdominal pain. Patient is having ongoing pain for several weeks now. This is her third admission since last 1 month. Patient is status post right ureteral stent on and supposed to follow-up outpatient for stent removal. She was on Bactrim and amoxicillin for postop hepatic abscess, says no longer on antibiotics. She was again admitted 06 of February for small bowel obstruction and was discharged on 02/08/2025. Patient is followed with palliative care. Currently on p.o. Dilaudid 4 mg every 3 hours as needed for pain. Patient says Dilaudid is causing her nauseous. States abdominal pain is not getting better. She is having a lot of nausea and vomiting. She says not eating because of nausea. She is being managed for the following: Partial SBO: Patient presents with abdominal pain and persistent nausea and vomiting with decreased p.o. intake. Metastatic colon cancer Patient presents with abdominal pain, nausea, vomiting, decreased p.o. intake. Status post EGD 03/02, large amount of retained fluid in the stomach and esophagus noted suggestive of partial obstruction. LA grade D reflux esophagitis with bleeding noted. Biopsies were taken----> follow-up on biopsy results. Status post CTAP with IV contrast 03/02: Noted multifocal pneumonia in the lung bases bilaterally. Noted small bowel obstruction. Noted findings concerning for possible right pyelonephritis. Per prior attending: Patient's surgical oncologist Dr. Johnson reached out on March 01, 2025. I provided update on patient's current condition. He reports that unfortunately patient does have recurrence of colon cancer given elevated tumor markers. The initial plan was reversal of the colostomy- which will be kept on hold for the time being as it will delay patient to obtain chemotherapy. He also asked me to discuss with patient if she wants to follow- up with local oncology for chemotherapy. I updated the patient about my discussion with her surgical oncologist on March 02, 2025; she verbalized understanding. She wants to follow-up at [facility] oncology. She reports that PET/CT is still not done yet; would like to follow-up with them to have it done. Pt reports better control of N, V. Is tolerating clears now. Continue on Compazine, Zofran and Phenergan as needed for nausea/vomiting. DC'd zyprexa 03/03 as pt not taking/also risk of QT prolongation given fluconazole and zofran use. AZAM craft, emiliana eval. General surgery on board, will follow ongoing recommendation. Continue with PPI. and multivitamins with minerals, IV thiamine, IV folic acid. Hold IVF. Monitor and replete electrolytes. Phosphorous and Mg replaced today. Acute UTI/ Possible right pyelonephritis Abdominal pain, hydroureteronephrosis Pt presents with abdominal pain mostly on left. Of note, patient recently presented with right-sided abdominal pain status post right ureteral stent placement February 03, 2025 with improvement in the pain. Admitting CTAP with mild left-sided hydronephroureterosis Patient underwent cystoscopy with left ureteral stent placement February 08, 2025, reports improvement in her left abdominal pain. Urine culture grew Salma multiple times, given recent ureteral procedure; pt started on fluconazole for candiduria. Plan to treat for 2 weeks. Monitor EKG. qtc 432 on 03/06 Follow-up with urology upon discharge. Multifocal pneumonia: concern for mutlifocal pna on lung bases noted on 03/02 CTAP with IV contrast. Started cefepime 03/03, WBC trended up/pt needed O2, hence CT chest obtained 03/05 which showed increasing pneumonia and increased pleural effusion. MRSA +ve. Pulm consulted, recs are doxy, cefepime, vanc; ID consult. Recommend repeat CT chest in about 6 weeks time to document resolution of pneumonia. WBC improving, pt afebrile. Anemia s/p EGD - see above, c/w iv ppi. Hb dropped to 6.8 in am today, will transfuse 1 unit PRBC. History of PE: On Eliquis- resumed after EGD, now on hep drip as pt not able to take po. Anxiety and depression: On Lexapro, BuSpar and Ativan as needed. Resume once patient is able to take p.o. GERD: on protonix-continue DVT prophylaxis: On Heparin drip Disposition: Medical floor Full code. Please note the above document was generated using voice recognition software. It may contain grammatical, syntax or spelling errors. Any formal questions or concerns about the content, text or information contained within the body of this dictation should be directly addressed to the provider for clarification Admission and Anticipated Discharge Date Admission Date: February 27, 2025 Subjective Patient seen and examined. Pt reports better control of nausea, vomiting overall, She states being able to tolerate liquid diet. Pt reports no cough or chest pain Pt denies fever, sob. reports abd pain under control. Pt reports improving epigastric burning sensation. Overnight pt's Hb noted to be 6.8 , though repeat is at 7.1, since the pt reports feeling weak and tired, we agreed that we will transfuse 1 unit blood if it doesn't improve from 7.1 on further repeat HnH. Physical Exam Physical Exam: Constitutional: on RA, NAD. Respiratory: Bilateral occ rales Cardiovascular: RRR, no murmur, no edema Vessels: no JVD or carotid bruit Chest: normal inspection of chest Abdomen: soft, No epigastric tender. colostomy bag with good amount of liquid output Musculoskeletal: no cyanosis or clubbing, extremities motor strength 5/5 Skin: no rashes, warm and dry normal turgor Neurologic: PERRL, EOMI, accommodation nl, no face palsy, no dysarthria CN's II- XI intact bilaterally and moves all extremities Results & Data Results & Data Vital Signs (Past 12 Hours) Vital Signs Temp Pulse Pulse Resp BP Pulse Ox O2 Del Method 03/07/25 11:44 36.9 C 111 H 20 129/81 93 Nasal Cannula 03/07/25 09:15 Room Air 03/07/25 07:46 36.8 C 113 H 20 127/87 90 Room Air 03/07/25 07:43 84 18 98 Nasal Cannula 03/07/25 02:55 36.9 C 86 16 137/89 93 Nasal Cannula O2 Flow Rate 03/07/25 11:44 2 03/07/25 09:15 03/07/25 07:46 03/07/25 07:43 2 03/07/25 02:55 2 (1) Abdominal pain Abdominal location: generalized Qualified Code(s): R10.84 - Generalized abdominal pain
[2025-03-07] MEDS: MAGNESIUM SULFATE / D5W 1 GM/100 ML BAG IV SCH (14:48)
[2025-03-07] MEDS: POTASSIUM PHOSPHATE 15 MMOL in SODIUM CHLORIDE 0.9% 250 ML IV ONE (15:01)
--- NOTE | 2025-03-07 15:04 | Surgery Progress Note ---
<Statement entered by Elizabeth Velasquez DO - 03/07/25 18:14> I have seen and examined this patient with the surgical PA. She continues with good ileostomy output. I agree with this plan. Date of Service March 07, 2025 Assessment & Plan (1) Partial small bowel obstruction: (2) Abdominal pain: (3) Nausea & vomiting: Plan Will obtain a KUB x-ray of the abdomen to assess for any abnormal gas pattern that could suggest small bowel obstruction versus ileus. If not present, will consider starting Reglan today as a prokinetic agent because it appears that her obstruction could be functional since she continues to have liquid output from her ostomy. Continue clear liquids for now, and pending x-ray and may consider advancing diet tomorrow. Continue to monitor ileostomy output. Remainder of her care per the primary medicine team, general surgery will continue to follow for now. Admission and Anticipated Discharge Date Admission Date: February 27, 2025 Subjective Patient currently admits to general malaise, states that she does not feel good, has had a cough today that has been productive of brownish sputum. Denies any fevers or chills. She currently denies any abdominal pain, states that she is passing flatus and liquid stool from her ileostomy, however this may be slightly less today. She states that she has been able to tolerate a clear liquid diet, however continues to have episodes of nausea and occasional episodes of vomiting small amounts. Patient states that she feels that the clear liquid diet seems to get stuck in the lower part of her throat and stomach, that she then develops some epigastric pain followed by nausea and then vomits which relieves her pain. Physical Exam Physical Exam: Gen: Awake and alert, resting comfortably in bed in NAD CV: RRR PULM: non-labored breathing Abd: Abd soft, non-tender, non-distended, ostomy to right lower quadrant with liquid succus in bag, stoma looks pink and viable. ext: no edema to bilateral lower ext, SCDs in place, non-tender, feet warm and well perfused Results & Data Vital Signs (Past 12 Hours) Vital Signs Temp Pulse Pulse Pulse Resp BP BP 03/07/25 14:57 36.7 C 100 H 20 113/67 03/07/25 14:41 36.9 C 105 H 16 127/69 03/07/25 11:44 36.9 C 111 H 20 129/81 03/07/25 09:15 03/07/25 07:46 36.8 C 113 H 20 127/87 03/07/25 07:43 84 18 Pulse Ox O2 Del Method O2 Flow Rate 03/07/25 14:57 90 2 03/07/25 14:41 91 2 03/07/25 11:44 93 Nasal Cannula 2 03/07/25 09:15 Room Air 03/07/25 07:46 90 Room Air 03/07/25 07:43 98 Nasal Cannula 2 PG Care Time/CCT Total # of Minutes Spent Total Time Spent with Patient: Total time spent is greater than 50% in coordination of care (as documented) at patient's floor/unit and/or counseling patient: Coding [place] [address] SUB INP/OBS CARE 05/02MIN Patient Type Established History Problem Focused Exam Problem Focused Medical Decision Making Straight Forward Diagnoses Partial small bowel obstruction K56.600 Generalized abdominal pain R10.84 Abdominal location: generalized Nausea & vomiting R11.2 Vomiting type: unspecified (2) Abdominal pain Abdominal location: generalized Qualified Code(s): R10.84 - Generalized abdominal pain (3) Nausea & vomiting Vomiting type: unspecified Qualified Code(s): R11.2 - Nausea with vomiting, unspecified
[2025-03-07] MEDS: FUROSEMIDE 40 MG/4 ML VIAL IV ONE ×3 (17:08→17:45)
--- NOTE | 2025-03-07 17:18 | XRay Report ---
EXAM: Radiograph of the Abdomen 1 View INDICATION: Pain TECHNIQUE: Frontal supine view of the abdomen/pelvis. COMPARISON: CT 03/02/2025 FINDINGS: Limitations: None. Lower thorax: Small right pleural effusion and bilateral basilar airspace consolidation noted. Gastrointestinal tract: Relatively little bowel gas noted. Organs: Visualized organ shadows appear grossly normal. Bones/joints: No fracture, erosion or dislocation. Soft tissues: No abnormality noted. No radiopaque foreign body noted. Tubes, lines and devices: Inferior vena cava filter and bilateral ureteral stents in good position and unchanged. IMPRESSION: 1. Nonspecific relatively gasless abdomen. Consider follow-up CT. 2. Right pleural effusion and bilateral basilar airspace consolidation noted. ACT 112: N/A Electronically signed by Eufemia Swann 03-07-2025 5:17 PM
--- NOTE | 2025-03-07 17:46 | Communication Note ---
Date of Service: March 07, 2025 Called urgently to bedside by nurse, patient's oxygen requirements has increased rapidly over the last 1 hour. Now on 15 L oxy mask Evaluated patient at bedside Resting comfortably, patient denies real shortness of breath. Not tachypneic, not in any respiratory distress Lungs:Dull and decreased the right base, Rales and crackles throughout left gre ater than right, no wheezes CV: S1-S2 Extremities: 2+ edema lower extremities bilaterally, posterior thighs, abdominal pannus Personally reviewed KUB done earlier in the day:Some consolidation and effusion right lower lobe Reviewed CT of chest from 03/05/2025: Increasing pleural effusions and multifocal infiltrates Reviewed intake and output: Patient seems to be significantly positive, Output has not been well recorded Patient received 1 unit PRBCs earlier today Last weight was performed on 03/03/2025. 71.4 kg Based on clinical exam, review of the record highly suspect patient is acutely v olume overloaded as a etiology for patient's new and progressing hypoxia. Patient received Lasix 40 mg x 1 dose earlier, repeat dose now Stat chest x-ray If patient does not respond to Lasix and requires additional oxygen support, becomes more tachypneic or symptomatic or starts having respiratory distress will place on BiPAP. 35 minutes critical care
--- NOTE | 2025-03-07 17:51 | XRay Report ---
Chest radiograph, one view History: Hypoxia Comparison: 05/28/2024 Findings/impression: Single AP view of the chest performed. There is a new moderate right pleural effusion. Mild perihilar pulmonary edema. Left costophrenic angle appears sharp. Right chest wall port with catheter tip at the lower SVC. No pneumothorax. Electronically signed by Reynaldo Banks 03-07-2025 5:51 PM
[2025-03-07] MEDS: Nursing to Pharmacy Communication SCH (19:20)
[2025-03-07 19:47] LABS: Base Excess VBG -1.1 mEq/L; HCO3 VBG 23 mmol/L; Oxygen Saturation VBG 77.4 %; PCO2 VBG 34 mmHg (38-50); PO2 VBG 44 mmHg; pH VBG 7.43 (7.36-7.41)
[2025-03-07 19:53] LABS: Hematocrit (blood only) 27.2 % (37.0-47.0); Hemoglobin 8.7 g/dL (12.0-16.0)
[2025-03-07] MEDS: diphenhydrAMINE 50 MG/ML VIAL IV SCH (20:53)
[2025-03-07] MEDS: VANCOMYCIN HCL / NSS 1,000 MG/270 ML BAG IV SCH (21:21)
[2025-03-08] MEDS: FUROSEMIDE 40 MG/4 ML VIAL IV SCH (01:36)
[2025-03-08 04:00] LABS: Hematocrit (blood only) 26.5 % (37.0-47.0); Hemoglobin 8.3 g/dL (12.0-16.0); Mean Corpuscular Hemoglobin 25.1 pg (25.0-34.0); Mean Corpuscular Volume 80.1 fL (80.0-100.0); Platelet Count 201 K/uL (130-400); RDW Standard Deviation 51.8 fL (36.4-46.3); Red Blood Count 3.31 M/uL (4.20-5.40); White Blood Count 11.95 K/ul (4.8-10.8)
[2025-03-08 04:20] LABS: Anion Gap 7.0 (3-11); Blood Urea Nitrogen 13.0 mg/dl (6-23); Calcium 7.9 mg/dl (8.6-10.3); Carbon Dioxide 26.0 mmol/L (21-32); Chloride 100.0 mmol/L (98-107); Creatinine Clr Calc Pharmacy 73.9 ml/min; Glucose 104.0 mg/dl (70-99(Fasting)); Magnesium 1.7 mg/dl (1.7-2.4); Potassium 4.3 mmol/L (3.5-5.1); Sodium 133.0 mmol/L (136-145)
[2025-03-08 04:32] LABS: ANTI-Xa, UFH(UnfractionatedHep 0.33 IU/ml (0.3-0.7)
--- NOTE | 2025-03-08 08:01 | XRay Report ---
EXAM: XR chest 1V portable CLINICAL HISTORY: PNA TECHNIQUE: An X-ray image of the chest was obtained in AP projection. COMPARISON: Compared with the previous CR study dated 03/07/2025. FINDINGS: There is a right-sided Port-A-Cath, tip reaching the cavoatrial junction region. Pulmonary Parenchyma: A blunted right costophrenic angle with a rising level and right lower zone opacity suggests moderate right pleural effusion and secondary basal lung opacification. Bilateral perihilar vascular congestion Clear left costophrenic angle No pulmonary nodules are identified. Heart and Mediastinum: Heart size is mildly enlarged. No mediastinal widening or masses. No hilar or mediastinal lymphadenopathy. Bony Thorax: Bony thorax appears intact without fractures or deformities. Soft Tissues: Soft tissues overlying the chest wall are unremarkable. IMPRESSION: 1. There is a right-sided Port-A-Cath with a tip reaching the cavoatrial junction region. Stable. 2. Unchanged right moderate pleural effusion and features of pulmonary congestion. 3. No significant changes compared to the previous study. Electronically signed by Jacques Sweeney 03-08-2025 08:00 AM
--- NOTE | 2025-03-08 09:47 | Palliative Care Progress Note ---
Date of Service March 08, 2025 Assessment & Plan (1) Nausea & vomiting: Plan: pt c/o intermittent "reflux" triggering nausea and vomiting which exacerbates her abdominal pain. she states that this is well managed with BID pepcid and protonix. gives her IVF at home via her port - usually 1 liter NS as needed, uses Zofran for nausea with mixed relief She takes Compazine occasionally but avoids it due to side effect of drowsiness (2) Right flank pain: (3) Intractable abdominal pain: Plan: 03/05: pt states her pain is constant right flank pain which is gnawing, nonr adiating and worsened by emesis. She states that she has been taking Dilaudid 4mg every 3h at home. she shared that this offers adequate relief but only lasts about 2h before pain starts escalating again. Discussed importance of adequate pain management as it relates to her overall health and quality of life.discussed her frequent need for short acting opiates and benefits of long acting medications to afford more consistent pain mgmt and better sleep. Options for long acting opiates are limited iso gastric sleeve and ileostomy and significant absorption issues and dumping syndrome. She states she was previously prescribed transdermal fentayl, but she only tried one patch and removed it after 4h because it made her "feel hot" and hyperactive. she shared that she would like to try Td fentanyl again. Added duragesic 25ucg/hr q72h patch continue Hydromorphone Hcl 4 mg PO Q4H PRN BTP TODAY: pt reports pain well managed over weekend. Discussed that she continues to require frequent PRN dilaudid for BTP and appears to be waking multiple time through night for pain medications. Patient self reports doubt that pain is waking her, she shared concern that her "mind is used to waking up every three hours so I just wake up, afterwards I notice my pain." She continues to have nearly half of her OMEs covered by PRN medication. We discussed that the use of TD fentanyl is meant to given her more consistent coverage for her pain so that she can sleep better. Discussed making incremental change in fentanyl dose and pt is agreeable. Will increase TD fentanyl to 37ucg/hr q72h LORETTA. Last 24h hour OMEs: 103.8 (previous 24hr 103.8 OME) Dilaudid IV 0.5 mg every x7 = 43.8 OME TD fentanyl 25mcg/hr x1 = 60 OME Plan as above Admission and Anticipated Discharge Date Admission Date: February 27, 2025 Subjective Met with pt at bedside, she was awake and alert with no visitors at bedside. Pt states that pain is well managed but she continues to have difficulty sleeping with frequent prn opiate requirements. SISSY VILA. Review of Systems Review of Systems: All systems reviewed & are unremarkable except as noted in Subjective Physical Exam Constitutional: WD/WN, vitals as above Eyes: PERRL, conjunctivae normal, anicteric sclerae Respiratory: normal respiratory effort, lungs clear to auscultation Cardiovascular: RRR, no murmur, no edema Skin: no rashes, warm and dry Psychiatric: A+Ox3, euthymic affect Results & Data Vital Signs (Past 12 Hours) Vital Signs Temp Pulse Pulse Resp BP Pulse Ox O2 Del Method 03/08/25 07:47 36.8 C 105 H 18 136/98 108 H Nasal Cannula 03/08/25 07:44 106 H 03/07/25 23:35 36.9 C 108 H 17 135/97 94 Nasal Cannula 03/07/25 22:10 103 H O2 Flow Rate 03/08/25 07:47 03/08/25 07:44 03/07/25 23:35 3 03/07/25 22:10 Laboratory Results Abnormal lab results 03/07/25 03/07/25 03/08/25 Range/Units 07:00 19:40 03:45 WBC 11.95 H (4.8-10.8) K/ul RBC 3.31 L (4.20-5.40) M/uL Hgb 8.7 L 8.3 L (12.0-16.0) g/dL Hct 27.2 L 26.5 L (37.0-47.0) % MCHC 31.3 L (32.0-36.0) g/dL RDW Std Deviation 51.8 H (36.4-46.3) fL RDW Coeff of Mita 18.0 H (11.5-14.5) % VBG pH 7.43 H (7.36-7.41) VBG pCO2 34 L (38-50) mmHg Sodium 133 L (136-145) mmol/L Glucose 104 H (70-99(Fasting)) mg/dl Calcium 7.9 L (8.6-10.3) mg/dl Random Vancomycin (10-20) mcg/ml Crossmatch See Detail 03/08/25 Range/Units 12:14 WBC (4.8-10.8) K/ul RBC (4.20-5.40) M/uL Hgb (12.0-16.0) g/dL Hct (37.0-47.0) % MCHC (32.0-36.0) g/dL RDW Std Deviation (36.4-46.3) fL RDW Coeff of Mita (11.5-14.5) % VBG pH (7.36-7.41) VBG pCO2 (38-50) mmHg Sodium (136-145) mmol/L Glucose (70-99(Fasting)) mg/dl Calcium (8.6-10.3) mg/dl Random Vancomycin 24.7 H (10-20) mcg/ml Crossmatch Diagnostic Findings Abdomen Fluoroscopy 02/28/25 00:00 FL KUB CLINICAL HISTORY: LEFT STENT PLACEMENT COMPARISON STUDY: None FLUOROSCOPY TIME: 5 seconds FLUOROSCOPY IMAGES: 4 EXPOSURE DOSE: 1 mGy FINDINGS: Fluoroscopy was provided for urologic procedure. IMPRESSION: Intraoperative fluoroscopy. ACT 112: Negative or not required by law. Electronically signed by: Ricardo Green M.D. 03/01/2025 8:24 AM Abdomen/Pelvis CT 03/02/25 14:52 CT ABDOMEN and PELVIS with INTRAVENOUS CONTRAST HISTORY: Abdominal pain TECHNIQUE: CT abdomen and pelvis with contrast. IV CONTRAST: 100 mL of OMNIPAQUE 300 ENTERIC CONTRAST: Not Given COMPARISON: CT abdomen and pelvis February 26, 2025 FINDINGS: LOWER CHEST: New multifocal pneumonia in the included lung bases involving the lingula and bilateral lower lobes. Small right greater than left pleural fluids are similar to previous LIVER: Redemonstrated numerous hepatic lesions and masses measuring up to 4.5 cm. GALLBLADDER/BILIARY: Unremarkable gallbladder. No abnormal biliary dilatation. SPLEEN: Unremarkable. PANCREAS: Unremarkable. ADRENALS: Unremarkable. KIDNEYS: Interval placement of a left-sided internalized ureteral stent with resolution of the previously present hydroureteronephrosis. Right sided internalized ureteral stent is again seen. Cortical cysts. No stones or hydronephrosis identified. Ill-defined transcortical hypoattenuations are suggested in the renal parenchyma, especially in the right kidney. Recommend correlation with possible pyelonephritis PERITONEUM/RETROPERITONEUM. Mild enlarged portacaval lymph nodes. No aortic aneurysm. IVC filter. Small ascites appears similar to previous. GASTROINTESTINAL: No obstruction. Redemonstrated postoperative changes of sleeve gastrectomy and multiple bowel resections. Loop ileostomy is again seen in the right lower quadrant. There are multiple loops of small bowel that are moderately distended with fluid and gas. There is a suggestion of transition point in the left lower quadrant of the abdomen around series 2, image 55. In this area, there is matted appearance of the multiple loops of small bowel closely approximating the anterior abdominal wall fascia whether there are postsurgical changes, indicative of adhesions. REPRODUCTIVE: Status post hysterectomy. Likely left adnexal cystic structure seen in the left paracolic gutter (series 2, image 44) URINARY BLADDER: There are layering hyperdense materials within the lumen of the urinary bladder (series 2, image 72 for example) that are new from the previous examination 4 days ago. Small intraluminal air is also present. BONES: No acute findings. IMPRESSION: New multifocal pneumonia in the included lung bases involving the lingula and bilateral lower lobes. Multiple loops of small bowel are moderately distended with fluid and gas with a suggested transition point in the left lower quadrant of the abdomen where there are extensive postoperative adhesions. Small bowel obstruction is suspected. Please clinically correlate. Extensive postsurgical changes are redemonstrated as above. Multiple ill-defined hepatic lesions and masses are again seen, compatible with metastatic disease Interval placement of a left-sided internalized ureteral stent with resolution of the previously present hydroureteronephrosis. NEW layering hyperdense materials within the lumen of the urinary bladder. These are likely blood products and may be postprocedural in nature given interval placement of a left-sided ureteral stent Ill-defined transcortical hypoattenuations are suggested in the renal parenchyma, especially in the right kidney. Recommend correlation with possible pyelonephritis Electronically signed by Maximo Khalil 03-02-2025 7:[address] 03/05/25 13:23 CT chest diagnostic wo con CT DOSE: 443.65 mGy.cm CLINICAL HISTORY: Pna under Rx, now w/ increasing O2 need. TECHNIQUE: Multiaxial CT images of the chest were performed without contrast. A dose lowering technique was utilized adhering to the principles of ALARA. COMPARISON STUDY: 02/02/2025 FINDINGS: There are bilateral pleural effusions, moderate on the right small on the left, increased. There is increased bandlike and patchy consolidation in the lower lung lobes, right greater than left. There is increased scattered patchy groundglass opacity in the upper lobes, left greater than right. No pneumothorax seen. No enlarged adenopathy. The esophagus is fluid-filled and mildly dilated. Represent reflux or reduced esophageal motility. No pericardial effusion. Masses at the upper liver are grossly stable. No acute osseous finding seen. IMPRESSION: Increased pneumonia and increased pleural effusions. ACT 112: Negative or not required by law. Electronically signed by: Ricardo Green M.D. 03/05/2025 3:09 PM KUB X-Ray 03/07/25 14:16 EXAM: Radiograph of the Abdomen 1 View INDICATION: Pain TECHNIQUE: Frontal supine view of the abdomen/pelvis. COMPARISON: CT 03/02/2025 FINDINGS: Limitations: None. Lower thorax: Small right pleural effusion and bilateral basilar airspace consolidation noted. Gastrointestinal tract: Relatively little bowel gas noted. Organs: Visualized organ shadows appear grossly normal. Bones/joints: No fracture, erosion or dislocation. Soft tissues: No abnormality noted. No radiopaque foreign body noted. Tubes, lines and devices: Inferior vena cava filter and bilateral ureteral stents in good position and unchanged. IMPRESSION: 1. Nonspecific relatively gasless abdomen. Consider follow-up CT. 2. Right pleural effusion and bilateral basilar airspace consolidation noted. ACT 112: N/A Electronically signed by Eufemia Swann 03-07-2025 5:17 PM Medications Administered Current Inpatient Medications Al Hydrox/Mg Hydrox/Simethicone (Aluminum/Magnesium/Simeth (Maalox Max) 30 Ml Udc) 15 ml PO Q6H PRN PRN Reason: Indigestion Stop: 04/07/25 14:48 Last Admin: 03/08/25 15:04 Dose: 15 ml Albuterol (Albut/Ipratrop 3mg/0.5mg Neb 3 Ml Vial) 3 ml NEB Q6R PRN; Protocol PRN Reason: sob, wheezing Stop: 04/04/25 18:59 Apixaban (Apixaban 5 Mg Tablet) 5 mg PO BID LORETTA Stop: 03/29/25 08:59 Last Admin: 03/02/25 10:18 Dose: Not Given Baclofen (Baclofen 10 Mg Tab) 10 mg PO TID LORETTA Stop: 04/01/25 08:59 Last Admin: 03/08/25 13:36 Dose: Not Given Buspirone HCl (Buspirone 5 Mg Tab) 10 mg PO BID LORETTA Stop: 03/29/25 08:59 Last Admin: 03/08/25 08:49 Dose: 10 mg Diphenhydramine HCl (Diphenhydramine 50 Mg/Ml Vial) 25 mg IV Q8H LORETTA Stop: 04/06/25 20:29 Last Admin: 03/08/25 12:04 Dose: 25 mg Escitalopram Oxalate (Escitalopram Oxalate 20 Mg Tab) 20 mg PO DAILY LORETTA Stop: 03/29/25 08:59 Last Admin: 03/08/25 08:48 Dose: 20 mg Famotidine (Famotidine 20 Mg Tab) 20 mg PO BID LORETTA Stop: 03/29/25 08:59 Last Admin: 03/08/25 09:06 Dose: 20 mg Fentanyl (Fentanyl 25 Mcg/Hr Tdsy) 1 patch TD Q3D LORETTA Stop: 03/19/25 13:59 Last Admin: 03/08/25 08:45 Dose: 1 patch Fentanyl (Fentanyl 12 Mcg/Hr Tdsy) 1 patch TD Q3D LORETTA Stop: 03/22/25 09:59 Last Admin: 03/08/25 10:00 Dose: 1 patch Furosemide (Furosemide 40 Mg/4 Ml Vial) 40 mg IV Q8H LORETTA Stop: 03/08/25 20:00 Last Admin: 03/08/25 10:00 Dose: 40 mg Heparin Sodium (Porcine) (Heparin 100 Unit/Ml 5ml Flush) 5 ml FLUSH PRN PRN PRN Reason: Flush Stop: 03/30/25 18:43 Hydromorphone HCl (Hydromorphone Hcl 2 Mg Tab) 4 mg PO Q4H PRN PRN Reason: pain Stop: 03/13/25 10:27 Last Admin: 02/27/25 22:10 Dose: 4 mg Hydromorphone HCl (Hydromorphone Inj 0.5 Mg/0.5 Ml Syr) 0.5 mg IV Q3H PRN PRN Reason: Pain Stop: 03/16/25 08:23 Last Admin: 03/08/25 12:05 Dose: 0.5 mg Promethazine HCl (Phenergan) 12.5 mg in 50.5 mls @ 202 mls/hr IV Q6H PRN PRN Reason: Nausea And Vomiting Stop: 03/29/25 07:35 Last Infusion: 03/07/25 23:16 Dose: Infused Prochlorperazine 5 mg/ Syringe 5 mls @ 5 mls/min IV Q6H PRN PRN Reason: Nausea And Vomiting Stop: 03/29/25 07:35 Last Admin: 03/03/25 19:47 Dose: 5 mls/min Lorazepam 0.5 mg/ Syringe 0.5 mls @ 2 mls/min IV Q8H PRN PRN Reason: Anxiety/Agitation Stop: 04/01/25 00:19 Last Admin: 03/05/25 02:11 Dose: 2 mls/min Pantoprazole Sodium (Protonix) 40 mg in 10 mls @ 5 mls/min IV BID [facility] Stop: 04/01/25 20:59 Last Admin: 03/08/25 08:51 Dose: 5 mls/min Thiamine HCl 200 mg/ Sodium (Chloride) 52 mls @ 210 mls[facility] [place] Stop: 04/03/25 08:59 Last Infusion: 03/08/25 09:20 Dose: Infused Folic Acid 1 mg/ Syringe 10 mls @ 5 mls/min [facility] [place] Stop: 04/03/25 08:59 Last Admin: 03/08/25 08:52 Dose: 5 mls/min Heparin Sodium/Dextrose (Heparin 33128 Unit/500 Ml D5w) 25,000 units in 500 mls @ 26 mls/hr IV .[id number] [facility]; Protocol Stop: 04/02/25 15:44 Last Titration: 03/08/25 06:50 Dose: 1,300 units/hr, 26 mls/hr Magnesium Sulfate/Dextrose (Magnesium Sulfate / D5w) 1 gm in 100 mls @ 50 mls/hr IV Q2H [facility] Stop: 03/08/25 18:29 Last Admin: 03/08/25 14:40 Dose: 50 mls/hr Lorazepam (Lorazepam 0.5 Mg Tab) 0.5 mg PO TID PRN PRN Reason: Anxiety Stop: 03/29/25 04:59 Last Admin: 03/05/25 08:45 Dose: 0.5 mg Methocarbamol (Methocarbamol 500 Mg Tablet) 500 mg PO TID PRN PRN Reason: spasm Stop: 04/03/25 04:12 Metoclopramide HCl (Metoclopramide Hcl 5 Mg Tablet) 5 mg PO TID [facility] Stop: 03/11/25 20:59 Miscellaneous (Fentanyl Patch Remove & Waste) 1 each N/A Q3D [facility] Stop: 04/04/25 13:59 Last Admin: 03/08/25 10:01 Dose: 1 each Miscellaneous (Check Fentanyl Patch Placement) 1 each N/A QS [facility] Stop: 04/04/25 15:59 Last Admin: 03/08/25 15:50 Dose: 1 each Miscellaneous (Fentanyl Patch Remove & Waste) 1 each N/A Q3D [facility] Stop: 04/07/25 09:58 Last Admin: 03/08/25 10:01 Dose: Not Given Miscellaneous (Check Fentanyl Patch Placement) 1 each N/A QS [facility] Stop: 04/07/25 15:59 Last Admin: 03/08/25 15:50 Dose: 1 each Miscellaneous Information (Vancomycin Consult Active) 1 each N/A UD PRN PRN Reason: Consult Stop: 04/05/25 00:29 Multivitamins/Minerals (Cerovite Adv Formula Tab) 1 tab PO QAM [facility] Stop: 04/03/25 08:59 Last Admin: 03/08/25 08:48 Dose: Not Given Ondansetron HCl (Ondansetron Inj 2 Mg/Ml 2 Ml Vial) 4 mg IV Q6H PRN PRN Reason: Nausea Stop: 03/29/25 04:59 Last Admin: 03/08/25 09:08 Dose: 4 mg Phenol (Chloraseptic (Phenol) 1.4% Soln 180 Ml Btl) 2 sprays MT Q6H PRN PRN Reason: throat pain Stop: 03/31/25 09:26 Last Admin: 03/01/25 12:33 Dose: 2 sprays Pregabalin (Pregabalin 50 Mg Cap) 50 mg PO BID [facility] Stop: 03/29/25 08:59 Last Admin: 03/08/25 08:46 Dose: 50 mg Sucralfate (Sucralfate 1 Gm Tab) 1 gm PO QID [facility] Stop: 04/04/25 16:59 Last Admin: 03/08/25 13:35 Dose: 1 gm PG Care Time/CCT Total # of Minutes Spent Total Time Spent with Patient: Total time spent is greater than 50% in coordination of care (as documented) at patient's floor/unit and/or counseling patient: Coding [place] [address] SUB INP/OBS CARE 2/35MIN Patient Type Established History Expanded Problem Focused Exam Expanded Problem Focused Medical Decision Making Moderate Complexity Diagnoses Nausea & vomiting R11.2 Right flank pain R10.A1 Intractable abdominal pain R10.9
--- NOTE | 2025-03-08 10:05 | Electrocardiogram Report ---
Test Reason : Blood Pressure : */* mmHG Vent. Rate : 100 BPM Atrial Rate : 100 BPM P-R Int : 122 ms QRS Dur : 70 ms QT Int : 344 ms P-R-T Axes : 26 26 74 degrees QTcB Int : 443 ms Normal sinus rhythm Normal ECG When compared with ECG of 06-Mar-2025 06:11, Nonspecific T wave abnormality no longer evident in Anterior leads Confirmed by Chacho Lin ([id number]) on 03/08/2025 10:04:43 AM Referred By: REFERRED SELF Confirmed By: Chacho Lin
--- NOTE | 2025-03-08 12:29 | Pulmonology Progress Note ---
Date of Service March 08, 2025 Assessment & Plan (1) Pulmonary embolism: Acute cor pulmonale presence: unspecified Chronicity: acute Pulmonary embolism type: unspecified Qualified Code(s): I26.99 - Other pulmonary embolism without acute cor pulmonale (2) Pleural effusion: (3) Multifocal pneumonia: Plan Patient is a 44-year-old female with a history of metastatic colon adenocarcinoma with mets to the liver and peritoneum. The patient also has a history of diverticulitis with perforation status post colectomy and end colostomy placement, small bowel obstruction, history of C. difficile infection, iron deficiency anemia, history of DVT and PE, migraines, depression and anxiety. The patient presented to [facility] on 02/[facility]/2025 for evaluation of worsening abdominal pain, nausea, vomiting and poor p.o. intake. The patient had a CT of the chest performed which showed bilateral pleural effusions (right greater than left) with patchy GGO's noted in bilateral upper lobe and dense consolidations in bilateral lower lobes. Thoracentesis was attempted on 03/06/2025 however was a dry tap. Problem list: Multifocal pneumonia (sputum culture growing MRSA) Bilateral pleural effusions Pulmonary embolism Recommendation/plan: Patient has been on antibiotics with cefepime, Doxy and vancomycin. Sputum cultures now growing MRSA. Can likely de-escalate to vancomycin only. Consider infectious disease consult. Chest x-ray showing persistent pleural effusions. Will perform [id number] ultrasound today and consider thoracentesis. If pocket of fluid is not large or in a difficult location would consider IR guided sampling. Patient is considering her options with this. Patient is on heparin drip for PE. Thank you for this consultation. Will follow along with you. Please call directly with any questions. Admission and Anticipated Discharge Date Admission Date: February 27, 2025 Subjective Patient was dealing well during morning rounds this morning. Says that her pain is better controlled but she is still requiring a lot of IV Dilaudid. Not having any worsening shortness of breath. No fevers or chills. On nasal cannula initially but weaned to room air. Review of Systems Review of Systems: Negative except as in HPI. Physical Exam Physical Exam: Physical examination: General: Appears comfortable, resting in bed, not in distress. HEENT: Normocephalic, atraumatic. Extraocular movements intact. Sclera are nonicteric. No JVD appreciated. Skin: Warm and dry. No rashes appreciated. No jaundice appreciated. Cardiovascular: Heart is a regular rate and rhythm, no murmurs appreciated on my exam. Lungs: Diminished at bases. No wheezing. On nasal cannula. Nontachypneic. Neurologic: Awake and alert, oriented. CN II through XII are grossly intact. Speech is fluent. Nonfocal exam. Psychiatric: Appropriate cooperative during my exam. Results & Data Results & Data Vital Signs (Past 12 Hours) Vital Signs Temp Pulse Pulse Resp BP Pulse Ox O2 Del Method 03/08/25 10:48 37.0 C 100 H 16 146/91 H 97 Room Air 03/08/25 08:00 Nasal Cannula 03/08/25 07:47 36.8 C 105 H 18 136/98 108 H Nasal Cannula 03/08/25 07:44 106 H O2 Flow Rate 03/08/25 10:48 03/08/25 08:00 3 03/08/25 07:47 03/08/25 07:44 PG Care Time/CCT Total # of Minutes Spent Total Time Spent with Patient: Total time spent is greater than 50% in coordination of care (as documented) at patient's floor/unit and/or counseling patient: C[place] [address] SUB INP/OBS CARE 2/35MIN Patient Type Established History Detailed Exam Detailed Medical Decision Making Moderate Complexity Diagnoses Pulmonary embolism I26.99 Acute cor pulmonale presence: unspecified Chronicity: acute Pulmonary embolism type: unspecified Pleural effusion J90 Multifocal pneumonia J18.8
[2025-03-08] MEDS: VANCOMYCIN 750 MG in SODIUM CHLORIDE 0.9% 250 ML IV SCH (12:42)
[2025-03-08] MEDS: VANCOMYCIN LEVEL ONE (13:03)
--- NOTE | 2025-03-08 13:19 | Surgery Progress Note ---
Date of Service March 08, 2025 Assessment & Plan (1) Partial small bowel obstruction: Plan: Pt w/ metastatic ca here with nausea/vomiting and concern for partial SBO she remains with intermittent nausea. currently on clears. ostomy continues to function with liquid stool will trial advancing to fulls and see how she fairs. if okay with medicine could consider a trial of reglan no plans for surgical intervention, will follow If vomits back diet down Admission and Anticipated Discharge Date Admission Date: February 27, 2025 Supervising Physician Co-Signing Physician Notes I have seen and examined this patient with the surgical PA. I agree with this plan Subjective Patient still with intermittent nausea. Currently on clears. Ostomy functioning Physical Exam Physical Exam: awake/alert Gastrointestinal (Abdomen): Percussion/Palpation: + abdomen tender (mild discomfort to palpation) and abdomen soft small amount of liquid stool in bag Results & Data Vital Signs (Past 12 Hours) Vital Signs Temp Pulse Pulse Resp BP Pulse Ox O2 Del Method 03/08/25 10:48 98.6 F 100 H 16 146/91 H 97 Room Air 03/08/25 08:00 Nasal Cannula 03/08/25 07:47 98.2 F 105 H 18 136/98 108 H Nasal Cannula 03/08/25 07:44 106 H O2 Flow Rate 03/08/25 10:48 03/08/25 08:00 3 03/08/25 07:47 03/08/25 07:44 PG Care Time/CCT Total # of Minutes Spent Total Time Spent with Patient: Total time spent is greater than 50% in coordination of care (as documented) at patient's floor/unit and/or counseling patient: Coding Level of Care Code 79936 SUB INP/OBS CARE 05/02MIN Diagnoses Partial small bowel obstruction K56.600
--- NOTE | 2025-03-08 14:11 | Pharmacy Report ---
Pharmacy PK ABX Note - Date of Service March 08, 2025 - Assessment and Plan Assessment 03/08: * Sputum culture finalized as MRSA * SCr increasing (0.53 mg/dL -> 0.7 mg/dL -> 0.93 mg/dL) * Antibiotics to be de-escalated today per hospitalist. Discussed possible switch to linezolid (given tolerability concerns with vancomycin), but holding off on this for now until provider can discuss with patient (due to concomitant escitalopram and buspirone). * Pre-medicating with diphenhydramine 25 mg IV * Awaiting ID consult 03/07 * Sputum culture growing S. aureus, sensitivities pending * WBC downtrending, afebrile, tolerating vancomycin at slower rate * Infectious disease consulted * Random level today 15.5 mcg/mL correlates with achievement of target AUC/ASH 03/06 44 year old F receiving vancomycin/cefepime/doxycycline for treatment of multifocal pneumonia (increasing O2 requirements today) and IV fluconazole for urinary tract infection. Pertinent microbiologic data includes: Positive MRSA Nasal Swab, urine culture 02/27/25 growing randi albicans. 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 Will double length of infusion and pre-treat with diphenhydramine (ordered by pulm). Possibly could increase vancomycin dilution if needed. Patient is not a great linezolid candidate due to multiple serotonergic medications and daptomycin is not recommended for pneumonia treatment. Would recommend ID consult if not tolerating vancomycin for other treatment options. Day # 3 of vancomycin therapy. Plan Vancomycin * Current regimen: 1000 mg IV every 8 hours (infused over 3 hours) * Trough level obtained 03/08/25 resulted as 24.7 mcg/mL. This is predicted to result in supratherapeutic AUC/ASH > 600 mg/L.hr * ~125 mg of 1300 dose infused before RN instructed to stop infusion * Will order repeat level this evening before re-dosing, given SANDRA and high level Pharmacy will continue to follow and will adjust dose/frequency as necessary. Thank you. Pharmacy has transitioned to AUC monitoring for vancomycin. AUC/ASH is the preferred PK/PD target and is associated with decreased risk of nephrotoxicity compared to traditional trough targets.
--- NOTE | 2025-03-08 14:21 | Hospitalist Progress Note ---
Date of Service March 08, 2025 Assessment & Plan (1) Abdominal pain: Plan: 44-year-old female with past medical history significant for metastatic colon adenocarcinoma mets to liver and peritoneum, perforated diverticulitis/adenocarcinoma status post colostomy, pulm embolism on Eliquis, C. difficile s/p treatment, anxiety and depression, iron deficiency anemia presents with abdominal pain. Patient is having ongoing pain for several weeks now. This is her third admission since last 1 month. Patient is status post right ureteral stent on and supposed to follow-up outpatient for stent removal. She was on Bactrim and amoxicillin for postop hepatic abscess, says no longer on antibiotics. She was again admitted 06 of February for small bowel obstruction and was discharged on 02/08/2025. Patient is followed with palliative care. Currently on p.o. Dilaudid 4 mg every 3 hours as needed for pain. Patient says Dilaudid is causing her nauseous. States abdominal pain is not getting better. She is having a lot of nausea and vomiting. She says not eating because of nausea. She is being managed for the following: Partial SBO: Patient presents with abdominal pain and persistent nausea and vomiting with decreased p.o. intake. Metastatic colon cancer Patient presents with abdominal pain, nausea, vomiting, decreased p.o. intake. Status post EGD 03/02, large amount of retained fluid in the stomach and esophagus noted suggestive of partial obstruction. LA grade D reflux esophagitis with bleeding noted. Biopsies were taken----> follow-up on biopsy results. Status post CTAP with IV contrast 03/02: Noted multifocal pneumonia in the lung bases bilaterally. Noted small bowel obstruction. Noted findings concerning for possible right pyelonephritis. Per prior attending: Patient's surgical oncologist Dr. Johnson reached out on March 01, 2025. I provided update on patient's current condition. He reports that unfortunately patient does have recurrence of colon cancer given elevated tumor markers. The initial plan was reversal of the colostomy- which will be kept on hold for the time being as it will delay patient to obtain chemotherapy. He also asked me to discuss with patient if she wants to follow- up with local oncology for chemotherapy. I updated the patient about my discussion with her surgical oncologist on March 02, 2025; she verbalized understanding. She wants to follow-up at [facility] oncology. She reports that PET/CT is still not done yet; would like to follow-up with them to have it done. Pt reports better control of N, V. Is tolerating clears now. Continue on Compazine, Zofran and Phenergan as needed for nausea/vomiting. DC'd zyprexa 03/03 as pt not taking/also risk of QT prolongation given fluconazole and zofran use. GI venancio, appreciate eval. General surgery on board, recs are full liq diet and reglan Continue with PPI. and multivitamins with minerals, IV thiamine, IV folic acid. Hold IVF. Monitor and replete electrolytes. Mg replaced today. Will trial low dose reglan today at 5 mg tid. Acute UTI/ Possible right pyelonephritis Abdominal pain, hydroureteronephrosis Pt presents with abdominal pain mostly on left. Of note, patient recently presented with right-sided abdominal pain status post right ureteral stent placement February 03, 2025 with improvement in the pain. Admitting CTAP with mild left-sided hydronephroureterosis Patient underwent cystoscopy with left ureteral stent placement February 08, 2025, reports improvement in her left abdominal pain. Urine culture grew Salma multiple times, given recent ureteral procedure; pt started on fluconazole for candiduria. s/p 8 d fluconazole, stopped 03/08. Appreciate ID eval. QTc 03/08 - 443 Follow-up with urology upon discharge. Multifocal pneumonia: concern for mutlifocal pna on lung bases noted on 03/02 CTAP with IV contrast. 03/05 CT chest w/ increasing pneumonia and increased pleural effusion. MRSA +ve. Sp Cx +ve for MRSA. Pulm consulted, appreciate recs. ID evaled 03/08, recs vanc for 7 days and if being dc'd consider po linezolid to complete. Will stop cefepime and doxy, case d/w pulm - plan for pleural tap today. Anemia s/p EGD - see above, c/w iv ppi.s/p 1 unit PRBC. History of PE: On Eliquis- resumed after EGD, now on hep drip as pt not able to take po. Anxiety and depression: On Lexapro, BuSpar and Ativan as needed. c/w as able. GERD: on protonix-continue DVT prophylaxis: On Heparin drip Disposition: pcu/tele floor Full code. Please note the above document was generated using voice recognition software. It may contain grammatical, syntax or spelling errors. Any formal questions or concerns about the content, text or information contained within the body of this dictation should be directly addressed to the provider for clarification Admission and Anticipated Discharge Date Admission Date: February 27, 2025 Subjective Patient seen and examined. Pt reports better control of nausea, vomiting overall, She states being able to tolerate liquid diet. Pt reports no cough or chest pain Pt denies fever, sob. reports abd pain under control. Pt reports no epigastric burning sensation. stoma w/ liquid stool in the bag. Physical Exam Physical Exam: Constitutional: on RA, NAD. Respiratory: Bilateral occ rales Cardiovascular: RRR, no murmur, no edema Vessels: no JVD or carotid bruit Chest: normal inspection of chest Abdomen: soft, No epigastric tender. colostomy bag with small amount of liquid stool Musculoskeletal: no cyanosis or clubbing, extremities motor strength 5/5 Skin: no rashes, warm and dry normal turgor Neurologic: PERRL, EOMI, accommodation nl, no face palsy, no dysarthria CN's II- XI intact bilaterally and moves all extremities Results & Data Results & Data Vital Signs (Past 12 Hours) Vital Signs Temp Pulse Pulse Resp BP Pulse Ox O2 Del Method 03/08/25 10:48 37.0 C 100 H 16 146/91 H 97 Room Air 03/08/25 08:00 Nasal Cannula 03/08/25 07:47 36.8 C 105 H 18 136/98 108 H Nasal Cannula 03/08/25 07:44 106 H O2 Flow Rate 03/08/25 10:48 03/08/25 08:00 3 03/08/25 07:47 03/08/25 07:44 (1) Abdominal pain Abdominal location: generalized Qualified Code(s): R10.84 - Generalized abdominal pain
--- NOTE | 2025-03-08 14:25 | Infectious Disease Consult ---
Date of Service March 08, 2025 Telehealth Information I performed this visit using a real-time telehealth connection between my location and the patients location ([facility]). After connecting through interactive tele-video, patient was identified by name and date of and/or wristband check.Patient (or authorized healthcare customer account representative) was informed that this was a telemedicine visit and it was being conducted confidentially over secure lines. My office door was closed and no one else was present in the room with me.Patient (or authorized healthcare customer account representative) provided consent to proceed with the visit, expressed an understanding of privacy and security of the telemedicine visit, and gave permission to have a hospital customer account representative in the room in order to assist with the visit and to conduct portions of the visit, as needed. I informed the patient (or authorized healthcare customer account representative) that I reviewed their record and presented the opportunity for them to ask any questions regarding the visit today. The patient agreed to participate. Assessment & Plan (1) Multifocal pneumonia: Plan: Assessment: R/o MRSA bibasilar pneumonia R/o acute pyelonephritis w/ R hydroureteronephrosis Funguria SBO Hx of metastatic colon adenCA s/p partial colectomy and colostomy (10/[address] [facility]) c/b hepatic/subphrenic abscess (treated), PE on eliquis, R hydronephrosis s/p R ureteral stent placement (02/03/25), C diff infection S/p L ureteral stent insertion (02/28/25) Recommendations: - Stop cefepime - Stop doxycycline - Continue vancomycin iv to maintain vanco trough 15-20 or AUC 400-600 to complete total 7 days of abx therapy from 03/07 to 03/13. If ready for hospital discharge before completion of abx and the patient is able to tolerate po abx, switch vancomycin iv to linezolid 600 mg po bid for the rest of abx therapy - It is unclear if the Salma is clinically significant but the patient reports resolving symptoms. Although the clinical response may have more to do w/ relief of obstruction than antifungal therapy, I am not against completing total 7 days of antifungal therapy: please, stop after today. - ID signing off. During this patient encounter, one or more of the following was provided in addition to my in person visit: disease transmission risk assessment and mitigation; public health investigation, analysis, and testing; and/or complex antimicrobial therapy counseling and treatment. I spent a total of 65 minutes coordinating, documenting, and providing care for this patient excluding time spent in the performance of separately billed services or time spent by another provider/QHP. (2) UTI (urinary tract infection): History of Present Illness History of Present Illness This is a 44 y/o female (Deanna) w/ hx of metastatic colon adenCA w/ mets to liver and peritoneum s/p partial colectomy and ileostomy w/ complete hysterectomy (10/[address] [facility]) c/b hepatic/subphrenic abscess, PE on eliquis, R hydronephrosis s/p R ureteral stent placement (02/03/25), C diff infection, gastric bypass, ESBL infection, and anemia, who presented to [facility] on 02/27/25 for gradually worsening,persistent abd pain, poor appetite, low energy and n/v for several weeks. She had some burning during urination after the first ureteral stent. No f/c. She also had b/l flank pain on admission. This is her 3 rd hospital admission w/in a month: her last hospitalization was for SBO. No fever. EGD (03/02) revealed large amount of retained fluid in the stomach and esophagus suggestive of partial obstruction. CT (03/02) showed findings suggestive of possible R pyelonephritis w/ hydroureteronephrosis and r/o bibasilar pneumonia. Had cystoscopy w/ L ureteral stent insertion (02/28/25). Flank pain has almost resolved w/ improved abdominal pain. Denies f/c, persistent coughing, cp, or sob. Currently, not on chemotherapy. Allergies Allergy/AdvReac Type Severity Reaction Status Date / Time oxaliplatin Allergy Intermediate "HOT & Verified 02/27/25 00:23 ITCHY" IMMEDIATELY vancomycin Allergy Intermediate "HOT & Verified 02/27/25 00:23 ITCHY" IMMEDIATELY Home Medications Medication Instructions Recorded Confirmed Type apixaban 5 mg tablet (Eliquis) 5 mg PO BID 02/02/25 02/27/25 History buspirone 10 mg tablet 10 mg PO BID 02/02/25 02/27/25 History escitalopram oxalate 20 mg tablet 20 mg PO DAILY 02/02/25 02/27/25 History famotidine 20 mg tablet 20 mg PO BID 02/02/25 02/27/25 History lorazepam 0.5 mg tablet 0.5 mg PO TID PRN Anxiety 02/02/25 02/27/25 History pregabalin 50 mg capsule 50 mg PO BID #30 caps 02/06/25 02/27/25 Rx hydromorphone 4 mg tablet 4 mg PO Q4H PRN severe cancer pain 02/18/25 02/27/25 Rx (Dilaudid) 1 month #180 tabs ondansetron 8 mg disintegrating 8 mg PO Q8H PRN Nausea 02/24/25 02/27/25 History tablet methocarbamol 500 mg tablet 1,000 mg PO QID PRN NEEDED PER 02/27/25 02/27/25 History PT Patient History Medical History Nausea & vomiting Small bowel obstruction Peritonitis Abdominal pain Acute diverticulitis History of Clostridium difficile infection diagnosed 02/09/24 while admitted in hospital - treated with Vancomycin until 02/27/24 Colostomy present done 02/04/24 stoma revised 02/06/24 with an additional 4.5cm of the colon removed History of diverticulitis history of multiple flares over the past year Hx of deep venous thrombosis (2010) - s/p childbirth in 2010- was on blood thinner for short time - no DVT noted with PE on 02/16/24 Hx of migraines History of panic attacks History of pulmonary embolism dx 02/16/24 at [facility]>started on Eliquis provoked by malignancy and surgical intervention per records dopplers negative for DVT Adenocarcinoma of colon dx'ed 01/2024 Perforated sigmoid colon - 02/03/24 due to enlarging mass (adenocarcinoma of the colon) - 02/04/24 underwent partial left colon resection and end colostomy Depression with anxiety Surgical History Hx of hysterectomy Port-A-Cath in place (03/13/24) Insertion of Access Port with Fluoroscopy into Right Internal Jugular Vein(Right) - Elizabeth Velasquez DO [place] teeth removed H/O abdominal surgery (02/05/24) Exploratory Laparoscopy Revision of Colostomy and Stoma(Not Applicable) - Elizabeth Velasquez DO History of x 2 H/O gastric sleeve (2021) History of colon resection (02/04/24) p Diagnostic Laparoscopy, with a laparoscopic colon resection, Abdominal Wash Out, Creation Colostomy(Not Applicable) - Elizabeth Velasquez, Extensive lysis of adhesions Family History Other No family history of adverse response to anesthesia Social History Smoking Status: Never smoker Second Hand Exposure: No; Do You Dip or Chew Tobacco: No; Hx Alcohol Use: No Hx Substance Use: No Preferred Language: Czech Communication Ability: Effective Visual Impairment: No Limitations Senior Oracle Pl Sql Developer Required: No Beliefs That Will Affect Care: None Current Living Situation: Spouse Current Living Situation Comment: Home Feels Safe at Home: Yes Assistive Devices: None Review of Systems as HPI and all others negative Physical Exam Gen: no acute distress Lungs:breathing comfortably on nasal canula Neuro: AAOx3 Results & Data Vital Signs (Past 12 Hours) Vital Signs Temp Pulse Pulse Resp BP Pulse Ox O2 Del Method 03/08/25 10:48 37.0 C 100 H 16 146/91 H 97 Room Air 03/08/25 08:00 Nasal Cannula 03/08/25 07:47 36.8 C 105 H 18 136/98 108 H Nasal Cannula 03/08/25 07:44 106 H O2 Flow Rate 03/08/25 10:48 03/08/25 08:00 3 03/08/25 07:47 03/08/25 07:44 Laboratory Results WBC 11.95K H 8.3 Plt 201K Cr 0.93 Diagnostic Findings UA (02/27): 1+LE, WBC >30 U cx (02/27): C albicans MRSA screen (03/05): pos Sputum cx (03/06): MRSA (R to oxa, bact) CT A/P (03/02): New multifocal pneumonia in the included lung bases involving the lingula and bilateral lower lobes. Multiple loops of small bowel are moderately distended with fluid and gas with a suggested transition point in the left lower quadrant of the abdomen where there are extensive postoperative adhesions. Small bowel obstruction is suspected. Multiple ill-defined hepatic lesions and masses are again seen, compatible with metastatic disease Interval placement of a left-sided internalized ureteral stent with resolution of the previously present hydroureteronephrosis. NEW layering hyperdense materials within the lumen of the urinary bladder. These are likely blood products and may be postprocedural in nature given interval placement of a left-sided ureteral stent Ill-defined transcortical hypoattenuations are suggested in the renal parenchyma, especially in the right kidney. CT chest (03/05): There are bilateral pleural effusions, moderate on the right small on the left, increased. There is increased bandlike and patchy consolidation in the lower lung lobes, right greater than left. There is increased scattered patchy groundglass opacity in the upper lobes, left greater than right. No pneumothorax seen. No enlarged adenopathy. The esophagus is fluid-filled and mildly dilated. Represent reflux or reduced esophageal motility. No pericardial effusion. Masses at the upper liver are grossly stable. No acute osseous finding see CXR (03/08/25): IMPRESSION: 1. There is a right-sided Port-A-Cath with a tip reaching the cavoatrial junction region. Stable. 2. Unchanged right moderate pleural effusion and features of pulmonary congestion. 3. No significant changes compared to the previous study. Medications Administered ABX Cefepime 03/03- Vancomycin iv 03/06- Doxycycline 03/05- Fluconazole iv 03/01-
[2025-03-08] MEDS: MAGNESIUM SULFATE / D5W 1 GM/100 ML BAG IV SCH (14:40)
[2025-03-08] MEDS: ALUMINUM/MAGNESIUM/SIMETH (MAALOX MAX) 30 ML UDC PO PRN (15:04)
--- NOTE | 2025-03-08 16:18 | XRay Report ---
Technique: A frontal view of the chest was obtained Comparison is made to the prior examination obtained earlier today Findings: There is unchanged right lung base opacity could be due to either atelectasis or pneumonia. There is mild left lung base atelectasis. The heart size is within normal limits. No definite pneumothorax is seen. There is no definite change in a moderate sized right pleural effusion No fracture is noted. There is a right chest wall port with its tip in the SVC Impression: 1. Right pleural effusion 2. Right lung base opacity that could be due to either atelectasis or pneumonia Electronically signed by Mahendra Rasmussen 03-08-2025 4:17 PM
[2025-03-08] MEDS: METOCLOPRAMIDE HCL 5 MG TABLET PO SCH (20:18)
[2025-03-08] MEDS: diphenhydrAMINE 50 MG/ML VIAL IV SCH (21:32)
[2025-03-08] MEDS: VANCOMYCIN HCL / NSS 1,000 MG/270 ML BAG IV SCH (22:00)
[2025-03-09] MEDS: BENZONATATE 100 MG CAPSULE PO PRN (02:36)
[2025-03-09] MEDS ORDERED: VANCOMYCIN LEVEL ONE (04:30)
[2025-03-09] MEDS: LEVALBUTEROL 1.25 MG/3 ML NEB NEB STA (05:43)
[2025-03-09] MEDS: IPRATROPIUM BROMIDE NEB SOLN 0.02% 0.5MG/2.5ML VIAL INH STA (05:43)
[2025-03-09] MEDS: MAGNESIUM SULFATE / D5W 1 GM/100 ML BAG IV ONE (05:46)
[2025-03-09 05:54] LABS: Base Excess VBG 5.3 mEq/L; HCO3 VBG 31 mmol/L; Oxygen Saturation VBG 86.4 %; PCO2 VBG 46 mmHg (38-50); PO2 VBG 54 mmHg; pH VBG 7.43 (7.36-7.41)
[2025-03-09 06:00] LABS: Hematocrit (blood only) 24.4 % (37.0-47.0); Hemoglobin 7.9 g/dL (12.0-16.0); Mean Corpuscular Hemoglobin 25.9 pg (25.0-34.0); Mean Corpuscular Volume 80.0 fL (80.0-100.0); Platelet Count 202 K/uL (130-400); RDW Standard Deviation 52.9 fL (36.4-46.3); Red Blood Count 3.05 M/uL (4.20-5.40); White Blood Count 11.47 K/ul (4.8-10.8)
[2025-03-09 06:16] LABS: Albumin Level 2.9 gm/dl (3.4-5.0); Anion Gap 9.0 (3-11); Bilirubin,Total 0.6 mg/dl (0.2-1.0); Blood Urea Nitrogen 13.0 mg/dl (6-23); Calcium 8.0 mg/dl (8.6-10.3); Carbon Dioxide 30.0 mmol/L (21-32); Chloride 96.0 mmol/L (98-107); Creatinine Clr Calc Pharmacy 80.1 ml/min; Glucose 97.0 mg/dl (70-99(Fasting)); Magnesium 1.9 mg/dl (1.7-2.4); Potassium 3.9 mmol/L (3.5-5.1); Sodium 135.0 mmol/L (136-145); Total Protein 5.9 gm/dl (6.0-8.3)
[2025-03-09 06:31] LABS: ANTI-Xa, UFH(UnfractionatedHep 0.32 IU/ml (0.3-0.7)
--- NOTE | 2025-03-09 06:47 | XRay Report ---
EXAM: XR chest 1V portable CLINICAL HISTORY: low o2 TECHNIQUE: Radiograph of chest was acquired. COMPARISON: 03/08/2025 14:55:00 STOVE TENDER FINDINGS: Central venous line is seen in-situ on right side. Ill-defined parenchymal opacities noted in right lower zone - possibility of collapse consolidation. Mild right sided pleural effusion is seen. Remaining lung is clear. The cardiomediastinal silhouette is within normal limits. No acute osseous abnormality. IMPRESSION: Central venous line is seen in-situ on right side.-stable. Ill-defined parenchymal opacities noted in right lower zone - possibility of collapse consolidation.-mild interval reduction Mild right sided pleural effusion is seen.- mild interval reduction Electronically signed by Sudeep Dunlap 03-09-2025 06:47 AM
[2025-03-09] MEDS: LIDOCAINE 2% LOCAL 50 ML VIAL ONE (07:42)
[2025-03-09] MEDS: FUROSEMIDE 40 MG/4 ML VIAL IV ONE (09:06)
[2025-03-09 11:04] LABS: Appearance Urine Turbid (Clear); Bacteria Urine Automated None Seen (None Seen); Glucose Urine UA Negative (Negative); RBC Urine Automated >20 /hpf (0-2); WBC Urine Automated 21-50 /hpf (0-5)
--- NOTE | 2025-03-09 11:15 | Pulmonology Progress Note ---
Date of Service March 09, 2025 Assessment & Plan (1) Pulmonary embolism: Acute cor pulmonale presence: unspecified Chronicity: acute Pulmonary embolism type: unspecified Qualified Code(s): I26.99 - Other pulmonary embolism without acute cor pulmonale (2) Pleural effusion: (3) Multifocal pneumonia: Plan Patient is a 44-year-old female with a history of metastatic colon adenocarcinoma with mets to the liver and peritoneum. The patient also has a history of diverticulitis with perforation status post colectomy and end colostomy placement, small bowel obstruction, history of C. difficile infection, iron deficiency anemia, history of DVT and PE, migraines, depression and anxiety. The patient presented to [facility] on 02/26/2025 for evaluation of worsening abdominal pain, nausea, vomiting and poor p.o. intake. The patient had a CT of the chest performed which showed bilateral pleural effusions (right greater than left) with patchy GGO's noted in bilateral upper lobe and dense consolidations in bilateral lower lobes. Thoracentesis was attempted on 03/06/2025 however was a dry tap. Ultrasound was performed on 03/08/2025 showing a pocket of fluid in the right hemithorax. Bedside thoracentesis was offered however patient said that she was too uncomfortable to sit up for the procedure and requested that the procedure be done with IR. Consult was placed. Problem list: Multifocal pneumonia (sputum culture growing MRSA) Bilateral pleural effusions Pulmonary embolism Recommendation/plan: Patient has been on antibiotics with cefepime, Doxy and vancomycin. Transition to vancomycin only yesterday. Infectious disease has been consulted. They recommend continuing vancomycin through 03/13/2025. The patient is able for discharge prior to the sixth then they states she can while on linezolid. Interventional radiology has been consulted for thoracentesis. Fluid analysis including cytology has been ordered. Patient is on heparin drip for PE. Thank you for this consultation. Will follow along with you. Please call directly with any questions. Admission and Anticipated Discharge Date Admission Date: February 27, 2025 Subjective Patient is doing well today. Says that her pain is better controlled after some adjustments made by palliative care. Agreeable for IR thoracentesis. Reportedly she got significantly hypoxic this morning and they increased her up to 12 L. When I was in the room she appears comfortable. She denies shortness of breath. Not having any respiratory difficulties. I monitor her pulse oximetry, on room air she dropped into the low 80s, I put her on 3 L and her saturation remained above 90%. Review of Systems Review of Systems: Negative except as in HPI. Physical Exam Physical Exam: Physical examination: General: Appears comfortable, resting in bed, not in distress. HEENT: Normocephalic, atraumatic. Extraocular movements intact. Sclera are nonicteric. No JVD appreciated. Skin: Warm and dry. No rashes appreciated. No jaundice appreciated. Cardiovascular: Heart is a regular rate and rhythm, no murmurs appreciated on my exam. Lungs: Diminished at bases. No wheezing. On nasal cannula. Nontachypneic. Neurologic: Awake and alert, oriented. CN II through XII are grossly intact. Speech is fluent. Nonfocal exam. Psychiatric: Appropriate cooperative during my exam. Results & Data Results & Data Vital Signs (Past 12 Hours) Vital Signs Temp Pulse Pulse Resp BP Pulse Ox O2 Del Method 03/09/25 09:30 96 Nasal Cannula 03/09/25 07:58 Oxymask 03/09/25 07:22 102 H 03/09/25 07:05 37.7 C H 105 H 14 135/91 90 Oxymask 03/09/25 05:48 113 H 20 100 Non-rebreather 03/09/25 05:21 36.8 C 105 H 16 120/82 95 Oxymask 03/09/25 02:00 105 H 20 98 Nasal Cannula O2 Flow Rate 03/09/25 09:30 3 03/09/25 07:58 12 03/09/25 07:22 03/09/25 07:05 03/09/25 05:48 15 03/09/25 05:21 15 03/09/25 02:00 PG Care Time/CCT Total # of Minutes Spent Total Time Spent with Patient: Total time spent is greater than 50% in coordination of care (as documented) at patient's floor/unit and/or counseling patient: [place] [address] SUB INP/OBS CARE 2/35MIN Patient Type Established History Detailed Exam Detailed Medical Decision Making Moderate Complexity Diagnoses Pulmonary embolism I26.99 Acute cor pulmonale presence: unspecified Chronicity: acute Pulmonary embolism type: unspecified Pleural effusion J90 Multifocal pneumonia J18.8
[2025-03-09 11:20] LABS: Cast Urine Automated 0-2 /lpf (0-2)
--- NOTE | 2025-03-09 13:19 | XRay Report ---
XR chest 1V not portable HISTORY: 44 years-old Female s/p rt thora status post thoracentesis COMPARISON: Chest radiograph of same day at 5:35 AM TECHNIQUE: AP view of the chest FINDINGS: Hypoinflation. Cardiac silhouette is enlarged. Right IJ [id number] catheter in place. Mild linear bibasilar opacities suggestive of atelectasis. Small right pleural effusion has decreased in size fro m prior. No postprocedural pneumothorax identified. The bones of the chest appear grossly intact. Mil d mid to lower thoracic levoscoliosis. IVC filter in place. IMPRESSION: No postprocedural pneumothorax identified. ACT 112: Negative or not required by law. The above report was generated using voice recognition software. It may contain grammatical, syntax o r spelling errors. Electronically signed by: Jonn Li M.D. 03/09/2025 1:17 PM
[2025-03-09 13:57] LABS: Appearance Pleural Fluid Hazy; Color Pleural Fluid Amber; RBC Pleural Fluid Auto 11000 /uL; Source Pleural Fluid Right Lung; WBC Pleural Fluid Auto 2469 /uL
[2025-03-09 14:29] LABS: Lymphocytes, Fluid 8 %; Mono,Macrophage,Mesothelial 12 %; Neutrophils, Fluid 80 %
[2025-03-09] MEDS: METHOCARBAMOL 500 MG TABLET PO PRN (14:35)
--- NOTE | 2025-03-09 14:38 | Palliative Care Progress Note ---
Date of Service March 09, 2025 Assessment & Plan (1) Cancer related pain: Plan: Deanna is doing better on this regimen of TDF for pain mgt. No changes today. (2) Abdominal pain: Plan: See #1 above (3) Nausea & vomiting: Plan: Improved with stents Tolerating liquid diet, advancing slowly Tolerating liquids. Might try supplements/?Gelatein later today for nutritional optimization. (4) Palliative care by specialist: Plan: I called [facility]/Spoke with Jaylin JOSEPH for patients pet/ct and cancelled tomorrows scan and I got it rescheduled for 03/31 at 1130am, which per Jaylin is their next available. Patient is aware. I asked [place] to call pt if an earlier slot comes available. (5) Adenocarcinoma, colon: (6) Advanced care planning/counseling discussion: Plan: Deanna and I had a 30 min face to face ACP discussion at bedside today She is aware her cancer markers are elevated and there is a likely recurrence though it has not been easily noted on imaging to date Her [facility] oncology team wants a PETCT and this was to be done tomorrow but she will remain IP and therefore needs rescheduled. She is frustrated no one has been able to help with this and worries her care will be delayed without a PETCT. She said her oncologist provided a broad level overview for cancer treatment that he anticipates will include chemo + ICI but less sure about what meds he will use, and this is what he wants to see PETCT for first. She is hopeful her cancer has not become "late stage" or "terminal" and notes she feels reasonable hope for control vs ?maybe cure with cancer rx in future. Plan As above Tomorrow's PETCT was rescheduled by me for pt, she is aware of new date and time. Continue TDF no change to dose Thank you for allowing us to participate in the ongoing care of this patient. Please page with any additional concerns. Mikaela Hurst DNP Director, Palliative Medicine Admission and Anticipated Discharge Date Admission Date: February 27, 2025 Subjective Deanna is feeling better with TDF and advancing liquid diet slowly Feels well enough to try CT with contrast PETCT tomorrow needs rescheduled as it cannot be done as IP test Review of Systems Review of Systems: All systems reviewed & are unremarkable except as noted in Subjective Physical Exam Physical Exam: Resting in bed, semi reclined AAOx3 No acute distress Repositions self easily normal resp effort, no cough S1S2 OOB independtly, gait stable MS intact Abd TTP Pale skin, no lesions Results & Data Vital Signs (Past 12 Hours) Vital Signs Temp Pulse Pulse Resp BP Pulse Ox O2 Del Method 03/09/25 14:24 36.9 C 105 H 18 118/83 95 Nasal Cannula 03/09/25 13:51 37 C 107 H 18 129/83 96 Nasal Cannula 03/09/25 13:35 37.0 C 106 H 18 132/89 96 Nasal Cannula 03/09/25 09:30 96 Nasal Cannula 03/09/25 07:58 Oxymask 03/09/25 07:22 102 H 03/09/25 07:05 37.7 C H 105 H 14 135/91 90 Oxymask 03/09/25 05:48 113 H 20 100 Non-rebreather 03/09/25 05:21 36.8 C 105 H 16 120/82 95 Oxymask O2 Flow Rate 03/09/25 14:24 3 03/09/25 13:51 3 03/09/25 13:35 3 03/09/25 09:30 3 03/09/25 07:58 12 03/09/25 07:22 03/09/25 07:05 03/09/25 05:48 15 03/09/25 05:21 15 Laboratory Results 03/09/25 03/09/25 03/09/25 Range/Units Unknown Unknown 05:46 WBC 11.47 H (4.8-10.8) K/ul RBC 3.05 L (4.20-5.40) M/uL Hgb 7.9 L (12.0-16.0) g/dL Hct 24.4 L (37.0-47.0) % MCV 80.0 (80.0-100.0) fL MCH 25.9 (25.0-34.0) pg MCHC 32.4 (32.0-36.0) g/dL RDW Std Deviation 52.9 H (36.4-46.3) fL RDW Coeff of Mita 18.4 H (11.5-14.5) % Plt Count 202 (130-400) K/uL MPV 10.0 (9.4-12.4) fL Immature Gran % (Auto) % Neut % (Auto) % Lymph % (Auto) % [place] % (Auto) % Eos % (Auto) % Baso % (Auto) % Neut # (Auto) (1.40-6.50) K/uL Lymph # (Auto) (1.20-3.40) K/uL [place] # (Auto) (0.11-0.59) K/uL Eos # (Auto) (0.00-0.50) K/uL Baso # (Auto) (0.00-0.20) K/uL Immature Gran # (Auto) (0.01-0.20) K/uL Absolute Nucleated RBC (0.00-0.12) K/uL Nucleated RBC % (auto) % Polychromasia Microcytosis Tear Drop Cells Ovalocytes PT (9.0-12.0) Seconds INR (0.9-1.1) APTT (21-31) Seconds PTT Ratio Heparin Anti-Xa, Unfract 0.32 (0.3-0.7) IU/ml VBG pH 7.43 H (7.36-7.41) VBG pCO2 46 (38-50) mmHg VBG pO2 54 mmHg VBG HCO3 31 mmol/L VBG O2 Saturation 86.4 % VBG Base Excess 5.3 mEq/L Sodium 135 L (136-145) mmol/L Potassium 3.9 (3.5-5.1) mmol/L Chloride 96 L (98-107) mmol/L Carbon Dioxide 30 (21-32) mmol/L Anion Gap 9 (3-11) BUN 13 (6-23) mg/dl Creatinine 0.85 (0.6-1.2) mg/dl Est Cr Clr Drug Dosing 80.1 ml/min eGFR 87.12 BUN/Creatinine Ratio 15.3 (10-20) Glucose 97 (70-99(Fasting)) mg/dl Calcium 8.0 L (8.6-10.3) mg/dl Phosphorus 2.9 (2.5-4.9) mg/dl Magnesium 1.9 (1.7-2.4) mg/dl Total Bilirubin 0.6 (0.2-1.0) mg/dl Lactate Dehydrogenase 439 H (86-244) U/L B-Natriuretic Peptide 17 (0-100) pg/ml Total Protein 5.9 L (6.0-8.3) gm/dl Albumin 2.9 L (3.4-5.0) gm/dl Procalcitonin (0-0.5) ng/ml Urine Color Red Urine Appearance Turbid A (Clear) Urine pH 6.0 (4.5-7.5) Ur Specific [place] 1.019 (1.000-1.030) Urine Protein 3+ H (Negative) Urine Glucose (UA) Negative (Negative) Urine Ketones Negative (Negative) Urine Blood 3+ H (Negative) Urine Nitrite Negative (Negative) Urine Bilirubin 1+ H (Negative) Urine Urobilinogen Negative (Negative) Ur Leukocyte Esterase 2+ H (Negative) Urine WBC (Auto) 21-50 H (0-5) /hpf Urine RBC (Auto) >20 H (0-2) /hpf U Hyaline Cast (Auto) 0-2 (0-2) /lpf U Epithel Cells (Auto) 3-5 H (0-2) /hpf Urine Bacteria (Auto) None Seen (None Seen) Urine Mucus Present A (None Prsent) Urine Comment Fluid Neutrophils % 80 % Fluid Lymphocytes % 8 % Fluid Meso/Macro/[place] % 12 % Fluid Slide Review Pending Fluid Comment Pleural Fluid Source Right Lung Pleural Color Janice Pleural Appearance Hazy Pleural pH 7.46 H (7.3-7.4) Pleural WBC (Auto) 2469 /uL Pleural RBC (Auto) 40527 /uL Pleural Total Protein < 3.0 gm/dl Pleural LDH 294 Cancelled Pleural Glucose 114 mg/dl Pleural Amylase 10 U/L Pleural Cholesterol Pending Nasal Screen MRSA (PCR) (Negative) Random Vancomycin (10-20) mcg/ml Adenovirus (PCR) (NotDetected) B. pertussis DNA (PCR) (NotDetected) B.parapertussis DNA PCR (NotDetected) C. pneumoniae DNA (PCR) (NotDetected) Coronavirus OC43 (PCR) (NotDetected) Coronavirus HKU1 (PCR) (NotDetected) Coronavirus 229E (PCR) (NotDetected) SARS-CoV-2 (PCR) (NotDetected) Coronavirus NL63 (PCR) (NotDetected) Human Metapneumovir PCR (NotDetected) Influenza Type A (PCR) (NotDetected) Influenza Type B (PCR) (NotDetected) M. pneumoniae (PCR) (NotDetected) Parainfluenza 1 (PCR) (NotDetected) Parainfluenza 2 (PCR) (NotDetected) Parainfluenza 3 (PCR) (NotDetected) Parainfluenza 4 (PCR) (NotDetected) RSV (PCR) (NotDetected) Entero/Rhino (PCR) (NotDetected) Blood Type Antibody Screen Crossmatch 03/08/25 03/08/25 03/08/25 Range/Units 19:21 12:14 03:45 WBC 11.95 H (4.8-10.8) K/ul RBC 3.31 L (4.20-5.40) M/uL Hgb 8.3 L (12.0-16.0) g/dL Hct 26.5 L (37.0-47.0) % MCV 80.1 (80.0-100.0) fL MCH 25.1 (25.0-34.0) pg MCHC 31.3 L (32.0-36.0) g/dL RDW Std Deviation 51.8 H (36.4-46.3) fL RDW Coeff of Mita 18.0 H (11.5-14.5) % Plt Count 201 (130-400) K/uL MPV 10.2 (9.4-12.4) fL Immature Gran % (Auto) % Neut % (Auto) % Lymph % (Auto) % [place] % (Auto) % Eos % (Auto) % Baso % (Auto) % Neut # (Auto) (1.40-6.50) K/uL Lymph # (Auto) (1.20-3.40) K/uL [place] # (Auto) (0.11-0.59) K/uL Eos # (Auto) (0.00-0.50) K/uL Baso # (Auto) (0.00-0.20) K/uL Immature Gran # (Auto) (0.01-0.20) K/uL Absolute Nucleated RBC 0.02 (0.00-0.12) K/uL Nucleated RBC % (auto) 0.2 % Polychromasia Microcytosis Tear Drop Cells Ovalocytes PT (9.0-12.0) Seconds INR (0.9-1.1) APTT (21-31) Seconds PTT Ratio Heparin Anti-Xa, Unfract 0.33 (0.3-0.7) IU/ml VBG pH (7.36-7.41) VBG pCO2 (38-50) mmHg VBG pO2 mmHg VBG HCO3 mmol/L VBG O2 Saturation % VBG Base Excess mEq/L Sodium 133 L (136-145) mmol/L Potassium 4.3 (3.5-5.1) mmol/L Chloride 100 (98-107) mmol/L Carbon Dioxide 26 (21-32) mmol/L Anion Gap 7 (3-11) BUN 13 (6-23) mg/dl Creatinine 0.93 (0.6-1.2) mg/dl Est Cr Clr Drug Dosing 73.9 ml/min eGFR 78.21 BUN/Creatinine Ratio 14.0 (10-20) Glucose 104 H (70-99(Fasting)) mg/dl Calcium 7.9 L (8.6-10.3) mg/dl Phosphorus 3.0 D (2.5-4.9) mg/dl Magnesium 1.7 (1.7-2.4) mg/dl Total Bilirubin (0.2-1.0) mg/dl Lactate Dehydrogenase (86-244) U/L B-Natriuretic Peptide (0-100) pg/ml Total Protein (6.0-8.3) gm/dl Albumin (3.4-5.0) gm/dl Procalcitonin (0-0.5) ng/ml Urine Color Urine Appearance (Clear) Urine pH (4.5-7.5) Ur Specific [place] (1.000-1.030) Urine Protein (Negative) Urine Glucose (UA) (Negative) Urine Ketones (Negative) Urine Blood (Negative) Urine Nitrite (Negative) Urine Bilirubin (Negative) Urine Urobilinogen (Negative) Ur Leukocyte Esterase (Negative) Urine WBC (Auto) (0-5) /hpf Urine RBC (Auto) (0-2) /hpf U Hyaline Cast (Auto) (0-2) /lpf U Epithel Cells (Auto) (0-2) /hpf Urine Bacteria (Auto) (None Seen) Urine Mucus (None Prsent) Urine Comment Fluid Neutrophils % % Fluid Lymphocytes % % Fluid Meso/Macro/[place] % % Fluid Slide Review Fluid Comment Pleural Fluid Source Pleural Color Pleural Appearance Pleural pH (7.3-7.4) Pleural WBC (Auto) /uL Pleural RBC (Auto) /uL Pleural Total Protein gm/dl Pleural LDH Pleural Glucose mg/dl Pleural Amylase U/L Pleural Cholesterol Nasal Screen MRSA (PCR) (Negative) Random Vancomycin 18.0 24.7 H (10-20) mcg/ml Adenovirus (PCR) (NotDetected) B. pertussis DNA (PCR) (NotDetected) B.parapertussis DNA PCR (NotDetected) C. pneumoniae DNA (PCR) (NotDetected) Coronavirus OC43 (PCR) (NotDetected) Coronavirus HKU1 (PCR) (NotDetected) Coronavirus 229E (PCR) (NotDetected) SARS-CoV-2 (PCR) (NotDetected) Coronavirus NL63 (PCR) (NotDetected) Human Metapneumovir PCR (NotDetected) Influenza Type A (PCR) (NotDetected) Influenza Type B (PCR) (NotDetected) M. pneumoniae (PCR) (NotDetected) Parainfluenza 1 (PCR) (NotDetected) Parainfluenza 2 (PCR) (NotDetected) Parainfluenza 3 (PCR) (NotDetected) Parainfluenza 4 (PCR) (NotDetected) RSV (PCR) (NotDetected) Entero/Rhino (PCR) (NotDetected) Blood Type Antibody Screen Crossmatch 03/07/25 03/07/25 03/07/25 Range/Units 19:40 12:50 10:35 WBC (4.8-10.8) K/ul RBC (4.20-5.40) M/uL Hgb 8.7 L 7.1 L (12.0-16.0) g/dL Hct 27.2 L 23.2 L (37.0-47.0) % MCV (80.0-100.0) fL MCH (25.0-34.0) pg MCHC (32.0-36.0) g/dL RDW Std Deviation (36.4-46.3) fL RDW Coeff of Mita (11.5-14.5) % Plt Count (130-400) K/uL MPV (9.4-12.4) fL Immature Gran % (Auto) % Neut % (Auto) % Lymph % (Auto) % [place] % (Auto) % Eos % (Auto) % Baso % (Auto) % Neut # (Auto) (1.40-6.50) K/uL Lymph # (Auto) (1.20-3.40) K/uL [place] # (Auto) (0.11-0.59) K/uL Eos # (Auto) (0.00-0.50) K/uL Baso # (Auto) (0.00-0.20) K/uL Immature Gran # (Auto) (0.01-0.20) K/uL Absolute Nucleated RBC (0.00-0.12) K/uL Nucleated RBC % (auto) % Polychromasia Microcytosis Tear Drop Cells Ovalocytes PT (9.0-12.0) Seconds INR (0.9-1.1) APTT (21-31) Seconds PTT Ratio Heparin Anti-Xa, Unfract 0.31 (0.3-0.7) IU/ml VBG pH 7.43 H (7.36-7.41) VBG pCO2 34 L (38-50) mmHg VBG pO2 44 mmHg VBG HCO3 23 mmol/L VBG O2 Saturation 77.4 % VBG Base Excess -1.1 mEq/L Sodium (136-145) mmol/L Potassium (3.5-5.1) mmol/L Chloride (98-107) mmol/L Carbon Dioxide (21-32) mmol/L Anion Gap (3-11) BUN (6-23) mg/dl Creatinine (0.6-1.2) mg/dl Est Cr Clr Drug Dosing ml/min eGFR BUN/Creatinine Ratio (10-20) Glucose (70-99(Fasting)) mg/dl Calcium (8.6-10.3) mg/dl Phosphorus (2.5-4.9) mg/dl Magnesium (1.7-2.4) mg/dl Total Bilirubin (0.2-1.0) mg/dl Lactate Dehydrogenase (86-244) U/L B-Natriuretic Peptide (0-100) pg/ml Total Protein (6.0-8.3) gm/dl Albumin (3.4-5.0) gm/dl Procalcitonin (0-0.5) ng/ml Urine Color Urine Appearance (Clear) Urine pH (4.5-7.5) Ur Specific [place] (1.000-1.030) Urine Protein (Negative) Urine Glucose (UA) (Negative) Urine Ketones (Negative) Urine Blood (Negative) Urine Nitrite (Negative) Urine Bilirubin (Negative) Urine Urobilinogen (Negative) Ur Leukocyte Esterase (Negative) Urine WBC (Auto) (0-5) /hpf Urine RBC (Auto) (0-2) /hpf U Hyaline Cast (Auto) (0-2) /lpf U Epithel Cells (Auto) (0-2) /hpf Urine Bacteria (Auto) (None Seen) Urine Mucus (None Prsent) Urine Comment Fluid Neutrophils % % Fluid Lymphocytes % % Fluid Meso/Macro/[place] % % Fluid Slide Review Fluid Comment Pleural Fluid Source Pleural Color Pleural Appearance Pleural pH (7.3-7.4) Pleural WBC (Auto) /uL Pleural RBC (Auto) /uL Pleural Total Protein gm/dl Pleural LDH Pleural Glucose mg/dl Pleural Amylase U/L Pleural Cholesterol Nasal Screen MRSA (PCR) (Negative) Random Vancomycin (10-20) mcg/ml Adenovirus (PCR) (NotDetected) B. pertussis DNA (PCR) (NotDetected) B.parapertussis DNA PCR (NotDetected) C. pneumoniae DNA (PCR) (NotDetected) Coronavirus OC43 (PCR) (NotDetected) Coronavirus HKU1 (PCR) (NotDetected) Coronavirus 229E (PCR) (NotDetected) SARS-CoV-2 (PCR) (NotDetected) Coronavirus NL63 (PCR) (NotDetected) Human Metapneumovir PCR (NotDetected) Influenza Type A (PCR) (NotDetected) Influenza Type B (PCR) (NotDetected) M. pneumoniae (PCR) (NotDetected) Parainfluenza 1 (PCR) (NotDetected) Parainfluenza 2 (PCR) (NotDetected) Parainfluenza 3 (PCR) (NotDetected) Parainfluenza 4 (PCR) (NotDetected) RSV (PCR) (NotDetected) Entero/Rhino (PCR) (NotDetected) Blood Type Antibody Screen Crossmatch 03/07/25 03/07/25 03/07/25 Range/Units 09:27 07:00 03:10 WBC 11.19 H (4.8-10.8) K/ul RBC 2.75 L (4.20-5.40) M/uL Hgb 7.1 L 6.8 L* (12.0-16.0) g/dL Hct 23.3 L 22.2 L (37.0-47.0) % MCV 80.7 (80.0-100.0) fL MCH 24.7 L (25.0-34.0) pg MCHC 30.6 L (32.0-36.0) g/dL RDW Std Deviation 54.7 H (36.4-46.3) fL RDW Coeff of Mita 18.7 H (11.5-14.5) % Plt Count 199 (130-400) K/uL MPV 10.6 (9.4-12.4) fL Immature Gran % (Auto) % Neut % (Auto) % Lymph % (Auto) % [place] % (Auto) % Eos % (Auto) % Baso % (Auto) % Neut # (Auto) (1.40-6.50) K/uL Lymph # (Auto) (1.20-3.40) K/uL [place] # (Auto) (0.11-0.59) K/uL Eos # (Auto) (0.00-0.50) K/uL Baso # (Auto) (0.00-0.20) K/uL Immature Gran # (Auto) (0.01-0.20) K/uL Absolute Nucleated RBC (0.00-0.12) K/uL Nucleated RBC % (auto) % Polychromasia Microcytosis Tear Drop Cells Ovalocytes PT (9.0-12.0) Seconds INR (0.9-1.1) APTT (21-31) Seconds PTT Ratio Heparin Anti-Xa, Unfract 0.28 L (0.3-0.7) IU/ml VBG pH (7.36-7.41) VBG pCO2 (38-50) mmHg VBG pO2 mmHg VBG HCO3 mmol/L VBG O2 Saturation % VBG Base Excess mEq/L Sodium 133 L (136-145) mmol/L Potassium 4.8 D (3.5-5.1) mmol/L Chloride 105 (98-107) mmol/L Carbon Dioxide 22 (21-32) mmol/L Anion Gap 6 (3-11) BUN 12 (6-23) mg/dl Creatinine 0.70 (0.6-1.2) mg/dl Est Cr Clr Drug Dosing 98.2 ml/min eGFR 109.98 BUN/Creatinine Ratio 17.1 (10-20) Glucose 107 H (70-99(Fasting)) mg/dl Calcium 7.5 L (8.6-10.3) mg/dl Phosphorus 2.0 L (2.5-4.9) mg/dl Magnesium 1.7 (1.7-2.4) mg/dl Total Bilirubin (0.2-1.0) mg/dl Lactate Dehydrogenase (86-244) U/L B-Natriuretic Peptide (0-100) pg/ml Total Protein (6.0-8.3) gm/dl Albumin (3.4-5.0) gm/dl Procalcitonin (0-0.5) ng/ml Urine Color Urine Appearance (Clear) Urine pH (4.5-7.5) Ur Specific [place] (1.000-1.030) Urine Protein (Negative) Urine Glucose (UA) (Negative) Urine Ketones (Negative) Urine Blood (Negative) Urine Nitrite (Negative) Urine Bilirubin (Negative) Urine Urobilinogen (Negative) Ur Leukocyte Esterase (Negative) Urine WBC (Auto) (0-5) /hpf Urine RBC (Auto) (0-2) /hpf U Hyaline Cast (Auto) (0-2) /lpf U Epithel Cells (Auto) (0-2) /hpf Urine Bacteria (Auto) (None Seen) Urine Mucus (None Prsent) Urine Comment Fluid Neutrophils % % Fluid Lymphocytes % % Fluid Meso/Macro/[place] % % Fluid Slide Review Fluid Comment Pleural Fluid Source Pleural Color Pleural Appearance Pleural pH (7.3-7.4) Pleural WBC (Auto) /uL Pleural RBC (Auto) /uL Pleural Total Protein gm/dl Pleural LDH Pleural Glucose mg/dl Pleural Amylase U/L Pleural Cholesterol Nasal Screen MRSA (PCR) (Negative) Random Vancomycin 15.5 (10-20) mcg/ml Adenovirus (PCR) (NotDetected) B. pertussis DNA (PCR) (NotDetected) B.parapertussis DNA PCR (NotDetected) C. pneumoniae DNA (PCR) (NotDetected) Coronavirus OC43 (PCR) (NotDetected) Coronavirus HKU1 (PCR) (NotDetected) Coronavirus 229E (PCR) (NotDetected) SARS-CoV-2 (PCR) (NotDetected) Coronavirus NL63 (PCR) (NotDetected) Human Metapneumovir PCR (NotDetected) Influenza Type A (PCR) (NotDetected) Influenza Type B (PCR) (NotDetected) M. pneumoniae (PCR) (NotDetected) Parainfluenza 1 (PCR) (NotDetected) Parainfluenza 2 (PCR) (NotDetected) Parainfluenza 3 (PCR) (NotDetected) Parainfluenza 4 (PCR) (NotDetected) RSV (PCR) (NotDetected) Entero/Rhino (PCR) (NotDetected) Blood Type A Positive Antibody Screen NEGATIVE Crossmatch See Detail 03/06/25 03/06/25 03/06/25 Range/Units 20:02 12:00 05:04 WBC 15.82 H (4.8-10.8) K/ul RBC 3.22 L (4.20-5.40) M/uL Hgb 7.8 L (12.0-16.0) g/dL Hct 25.5 L (37.0-47.0) % MCV 79.2 L (80.0-100.0) fL MCH 24.2 L (25.0-34.0) pg MCHC 30.6 L (32.0-36.0) g/dL RDW Std Deviation 52.8 H (36.4-46.3) fL RDW Coeff of Mita 18.5 H (11.5-14.5) % Plt Count 314 (130-400) K/uL MPV 10.0 (9.4-12.4) fL Immature Gran % (Auto) % Neut % (Auto) % Lymph % (Auto) % [place] % (Auto) % Eos % (Auto) % Baso % (Auto) % Neut # (Auto) (1.40-6.50) K/uL Lymph # (Auto) (1.20-3.40) K/uL [place] # (Auto) (0.11-0.59) K/uL Eos # (Auto) (0.00-0.50) K/uL Baso # (Auto) (0.00-0.20) K/uL Immature Gran # (Auto) (0.01-0.20) K/uL Absolute Nucleated RBC (0.00-0.12) K/uL Nucleated RBC % (auto) % Polychromasia Microcytosis Tear Drop Cells Ovalocytes PT (9.0-12.0) Seconds INR (0.9-1.1) APTT (21-31) Seconds PTT Ratio Heparin Anti-Xa, Unfract 0.24 L < 0.10 L 0.26 L (0.3-0.7) IU/ml VBG pH (7.36-7.41) VBG pCO2 (38-50) mmHg VBG pO2 mmHg VBG HCO3 mmol/L VBG O2 Saturation % VBG Base Excess mEq/L Sodium 135 L (136-145) mmol/L Potassium 3.9 (3.5-5.1) mmol/L Chloride 105 (98-107) mmol/L Carbon Dioxide 23 (21-32) mmol/L Anion Gap 7 (3-11) BUN 10 (6-23) mg/dl Creatinine 0.57 L (0.6-1.2) mg/dl Est Cr Clr Drug Dosing 120.5 ml/min eGFR 115.57 BUN/Creatinine Ratio 17.5 (10-20) Glucose 118 H (70-99(Fasting)) mg/dl Calcium 7.5 L (8.6-10.3) mg/dl Phosphorus 2.0 L (2.5-4.9) mg/dl Magnesium 1.6 L (1.7-2.4) mg/dl Total Bilirubin (0.2-1.0) mg/dl Lactate Dehydrogenase (86-244) U/L B-Natriuretic Peptide 37 (0-100) pg/ml Total Protein (6.0-8.3) gm/dl Albumin (3.4-5.0) gm/dl Procalcitonin 11.10 H (0-0.5) ng/ml Urine Color Urine Appearance (Clear) Urine pH (4.5-7.5) Ur Specific [place] (1.000-1.030) Urine Protein (Negative) Urine Glucose (UA) (Negative) Urine Ketones (Negative) Urine Blood (Negative) Urine Nitrite (Negative) Urine Bilirubin (Negative) Urine Urobilinogen (Negative) Ur Leukocyte Esterase (Negative) Urine WBC (Auto) (0-5) /hpf Urine RBC (Auto) (0-2) /hpf U Hyaline Cast (Auto) (0-2) /lpf U Epithel Cells (Auto) (0-2) /hpf Urine Bacteria (Auto) (None Seen) Urine Mucus (None Prsent) Urine Comment Fluid Neutrophils % % Fluid Lymphocytes % % Fluid Meso/Macro/[place] % % Fluid Slide Review Fluid Comment Pleural Fluid Source Pleural Color Pleural Appearance Pleural pH (7.3-7.4) Pleural WBC (Auto) /uL Pleural RBC (Auto) /uL Pleural Total Protein gm/dl Pleural LDH Pleural Glucose mg/dl Pleural Amylase U/L Pleural Cholesterol Nasal Screen MRSA (PCR) (Negative) Random Vancomycin (10-20) mcg/ml Adenovirus (PCR) (NotDetected) B. pertussis DNA (PCR) (NotDetected) B.parapertussis DNA PCR (NotDetected) C. pneumoniae DNA (PCR) (NotDetected) Coronavirus OC43 (PCR) (NotDetected) Coronavirus HKU1 (PCR) (NotDetected) Coronavirus 229E (PCR) (NotDetected) SARS-CoV-2 (PCR) (NotDetected) Coronavirus NL63 (PCR) (NotDetected) Human Metapneumovir PCR (NotDetected) Influenza Type A (PCR) (NotDetected) Influenza Type B (PCR) (NotDetected) M. pneumoniae (PCR) (NotDetected) Parainfluenza 1 (PCR) (NotDetected) Parainfluenza 2 (PCR) (NotDetected) Parainfluenza 3 (PCR) (NotDetected) Parainfluenza 4 (PCR) (NotDetected) RSV (PCR) (NotDetected) Entero/Rhino (PCR) (NotDetected) Blood Type Antibody Screen Crossmatch 03/05/25 03/05/25 03/05/25 Range/Units Unknown 21:37 16:35 WBC (4.8-10.8) K/ul RBC (4.20-5.40) M/uL Hgb (12.0-16.0) g/dL Hct (37.0-47.0) % MCV (80.0-100.0) fL MCH (25.0-34.0) pg MCHC (32.0-36.0) g/dL RDW Std Deviation (36.4-46.3) fL RDW Coeff of Mita (11.5-14.5) % Plt Count (130-400) K/uL MPV (9.4-12.4) fL Immature Gran % (Auto) % Neut % (Auto) % Lymph % (Auto) % [place] % (Auto) % Eos % (Auto) % Baso % (Auto) % Neut # (Auto) (1.40-6.50) K/uL Lymph # (Auto) (1.20-3.40) K/uL [place] # (Auto) (0.11-0.59) K/uL Eos # (Auto) (0.00-0.50) K/uL Baso # (Auto) (0.00-0.20) K/uL Immature Gran # (Auto) (0.01-0.20) K/uL Absolute Nucleated RBC (0.00-0.12) K/uL Nucleated RBC % (auto) % Polychromasia Microcytosis Tear Drop Cells Ovalocytes PT (9.0-12.0) Seconds INR (0.9-1.1) APTT (21-31) Seconds PTT Ratio Heparin Anti-Xa, Unfract 0.14 L (0.3-0.7) IU/ml VBG pH (7.36-7.41) VBG pCO2 (38-50) mmHg VBG pO2 mmHg VBG HCO3 mmol/L VBG O2 Saturation % VBG Base Excess mEq/L Sodium (136-145) mmol/L Potassium (3.5-5.1) mmol/L Chloride (98-107) mmol/L Carbon Dioxide (21-32) mmol/L Anion Gap (3-11) BUN (6-23) mg/dl Creatinine (0.6-1.2) mg/dl Est Cr Clr Drug Dosing ml/min eGFR BUN/Creatinine Ratio (10-20) Glucose (70-99(Fasting)) mg/dl Calcium (8.6-10.3) mg/dl Phosphorus (2.5-4.9) mg/dl Magnesium (1.7-2.4) mg/dl Total Bilirubin (0.2-1.0) mg/dl Lactate Dehydrogenase (86-244) U/L B-Natriuretic Peptide (0-100) pg/ml Total Protein (6.0-8.3) gm/dl Albumin (3.4-5.0) gm/dl Procalcitonin (0-0.5) ng/ml Urine Color Urine Appearance (Clear) Urine pH (4.5-7.5) Ur Specific [place] (1.000-1.030) Urine Protein (Negative) Urine Glucose (UA) (Negative) Urine Ketones (Negative) Urine Blood (Negative) Urine Nitrite (Negative) Urine Bilirubin (Negative) Urine Urobilinogen (Negative) Ur Leukocyte Esterase (Negative) Urine WBC (Auto) (0-5) /hpf Urine RBC (Auto) (0-2) /hpf U Hyaline Cast (Auto) (0-2) /lpf U Epithel Cells (Auto) (0-2) /hpf Urine Bacteria (Auto) (None Seen) Urine Mucus (None Prsent) Urine Comment Fluid Neutrophils % % Fluid Lymphocytes % % Fluid [place] % % Fluid Slide Review Fluid Comment Pleural Fluid Source Pleural Color Pleural Appearance Pleural pH (7.3-7.4) Pleural WBC (Auto) /uL Pleural RBC (Auto) /uL Pleural Total Protein gm/dl Pleural LDH Pleural Glucose mg/dl Pleural Amylase U/L Pleural Cholesterol Nasal Screen MRSA (PCR) Positive A (Negative) Random Vancomycin (10-20) mcg/ml Adenovirus (PCR) Not Detected (NotDetected) B. pertussis DNA (PCR) Not Detected (NotDetected) B.parapertussis DNA PCR Not Detected (NotDetected) C. pneumoniae DNA (PCR) Not Detected (NotDetected) Coronavirus OC43 (PCR) Not Detected (NotDetected) Coronavirus HKU1 (PCR) Not Detected (NotDetected) Coronavirus 229E (PCR) Not Detected (NotDetected) SARS-CoV-2 (PCR) Not Detected (NotDetected) Coronavirus NL63 (PCR) Not Detected (NotDetected) Human Metapneumovir PCR Not Detected (NotDetected) Influenza Type A (PCR) Not Detected (NotDetected) Influenza Type B (PCR) Not Detected (NotDetected) M. pneumoniae (PCR) Not Detected (NotDetected) Parainfluenza 1 (PCR) Not Detected (NotDetected) Parainfluenza 2 (PCR) Not Detected (NotDetected) Parainfluenza 3 (PCR) Not Detected (NotDetected) Parainfluenza 4 (PCR) Not Detected (NotDetected) RSV (PCR) Not Detected (NotDetected) Entero/Rhino (PCR) Not Detected (NotDetected) Blood Type Antibody Screen Crossmatch 03/05/25 03/05/25 03/05/25 Range/Units 14:34 14:34 06:07 WBC 12.47 H (4.8-10.8) K/ul RBC 3.14 L (4.20-5.40) M/uL Hgb 7.8 L (12.0-16.0) g/dL Hct 24.5 L (37.0-47.0) % MCV 78.0 L (80.0-100.0) fL MCH 24.8 L (25.0-34.0) pg MCHC 31.8 L (32.0-36.0) g/dL RDW Std Deviation 51.8 H (36.4-46.3) fL RDW Coeff of Mita 18.3 H (11.5-14.5) % Plt Count 247 (130-400) K/uL MPV 10.0 (9.4-12.4) fL Immature Gran % (Auto) % Neut % (Auto) % Lymph % (Auto) % [place] % (Auto) % Eos % (Auto) % Baso % (Auto) % Neut # (Auto) (1.40-6.50) K/uL Lymph # (Auto) (1.20-3.40) K/uL [place] # (Auto) (0.11-0.59) K/uL Eos # (Auto) (0.00-0.50) K/uL Baso # (Auto) (0.00-0.20) K/uL Immature Gran # (Auto) (0.01-0.20) K/uL Absolute Nucleated RBC (0.00-0.12) K/uL Nucleated RBC % (auto) % Polychromasia Microcytosis Tear Drop Cells Ovalocytes PT (9.0-12.0) Seconds INR (0.9-1.1) APTT (21-31) Seconds PTT Ratio Heparin Anti-Xa, Unfract 0.20 L < 0.10 L (0.3-0.7) IU/ml VBG pH (7.36-7.41) VBG pCO2 (38-50) mmHg VBG pO2 mmHg VBG HCO3 mmol/L VBG O2 Saturation % VBG Base Excess mEq/L Sodium 136 137 (136-145) mmol/L Potassium 3.8 D 3.0 L (3.5-5.1) mmol/L Chloride 104 105 (98-107) mmol/L Carbon Dioxide 22 22 (21-32) mmol/L Anion Gap 10 10 (3-11) BUN 9 11 (6-23) mg/dl Creatinine 0.53 L 0.51 L (0.6-1.2) mg/dl Est Cr Clr Drug Dosing 129.6 134.7 ml/min eGFR 117.61 118.71 BUN/Creatinine Ratio 17.0 21.6 H (10-20) Glucose 115 H 106 H (70-99(Fasting)) mg/dl Calcium 7.6 L 7.6 L (8.6-10.3) mg/dl Phosphorus 2.7 (2.5-4.9) mg/dl Magnesium 2.0 Cancelled 1.6 L (1.7-2.4) mg/dl Total Bilirubin (0.2-1.0) mg/dl Lactate Dehydrogenase (86-244) U/L B-Natriuretic Peptide (0-100) pg/ml Total Protein (6.0-8.3) gm/dl Albumin (3.4-5.0) gm/dl Procalcitonin (0-0.5) ng/ml Urine Color Urine Appearance (Clear) Urine pH (4.5-7.5) Ur Specific [place] (1.000-1.030) Urine Protein (Negative) Urine Glucose (UA) (Negative) Urine Ketones (Negative) Urine Blood (Negative) Urine Nitrite (Negative) Urine Bilirubin (Negative) Urine Urobilinogen (Negative) Ur Leukocyte Esterase (Negative) Urine WBC (Auto) (0-5) /hpf Urine RBC (Auto) (0-2) /hpf U Hyaline Cast (Auto) (0-2) /lpf U Epithel Cells (Auto) (0-2) /hpf Urine Bacteria (Auto) (None Seen) Urine Mucus (None Prsent) Urine Comment Fluid Neutrophils % % Fluid Lymphocytes % % Fluid Meso/Macro/[place] % % Fluid Slide Review Fluid Comment Pleural Fluid Source Pleural Color Pleural Appearance Pleural pH (7.3-7.4) Pleural WBC (Auto) /uL Pleural RBC (Auto) /uL Pleural Total Protein gm/dl Pleural LDH Pleural Glucose mg/dl Pleural Amylase U/L Pleural Cholesterol Nasal Screen MRSA (PCR) (Negative) Random Vancomycin (10-20) mcg/ml Adenovirus (PCR) (NotDetected) B. pertussis DNA (PCR) (NotDetected) B.parapertussis DNA PCR (NotDetected) C. pneumoniae DNA (PCR) (NotDetected) Coronavirus OC43 (PCR) (NotDetected) Coronavirus HKU1 (PCR) (NotDetected) Coronavirus 229E (PCR) (NotDetected) SARS-CoV-2 (PCR) (NotDetected) Coronavirus NL63 (PCR) (NotDetected) Human Metapneumovir PCR (NotDetected) Influenza Type A (PCR) (NotDetected) Influenza Type B (PCR) (NotDetected) M. pneumoniae (PCR) (NotDetected) Parainfluenza 1 (PCR) (NotDetected) Parainfluenza 2 (PCR) (NotDetected) Parainfluenza 3 (PCR) (NotDetected) Parainfluenza 4 (PCR) (NotDetected) RSV (PCR) (NotDetected) Entero/Rhino (PCR) (NotDetected) Blood Type Antibody Screen Crossmatch 03/04/25 03/04/25 03/03/25 Range/Units 11:45 06:44 22:24 WBC 12.14 H 12.06 H (4.8-10.8) K/ul RBC 3.16 L 2.87 L (4.20-5.40) M/uL Hgb 7.7 L 7.1 L (12.0-16.0) g/dL Hct 24.8 L 22.6 L (37.0-47.0) % MCV 78.5 L 78.7 L (80.0-100.0) fL MCH 24.4 L 24.7 L (25.0-34.0) pg MCHC 31.0 L 31.4 L (32.0-36.0) g/dL RDW Std Deviation 52.0 H 53.1 H (36.4-46.3) fL RDW Coeff of Mita 18.3 H 18.5 H (11.5-14.5) % Plt Count 220 211 (130-400) K/uL MPV 10.2 10.2 (9.4-12.4) fL Immature Gran % (Auto) 0.7 % Neut % (Auto) 81.1 % Lymph % (Auto) 7.8 % [place] % (Auto) 6.5 % Eos % (Auto) 3.7 % Baso % (Auto) 0.2 % Neut # (Auto) 9.85 H (1.40-6.50) K/uL Lymph # (Auto) 0.95 L (1.20-3.40) K/uL [place] # (Auto) 0.79 H (0.11-0.59) K/uL Eos # (Auto) 0.45 (0.00-0.50) K/uL Baso # (Auto) 0.02 (0.00-0.20) K/uL Immature Gran # (Auto) 0.08 (0.01-0.20) K/uL Absolute Nucleated RBC (0.00-0.12) K/uL Nucleated RBC % (auto) % Polychromasia 1+ Microcytosis Present Tear Drop Cells 1+ Ovalocytes 1+ PT (9.0-12.0) Seconds INR (0.9-1.1) APTT (21-31) Seconds PTT Ratio Heparin Anti-Xa, Unfract 0.53 0.10 L (0.3-0.7) IU/ml VBG pH (7.36-7.41) VBG pCO2 (38-50) mmHg VBG pO2 mmHg VBG HCO3 mmol/L VBG O2 Saturation % VBG Base Excess mEq/L Sodium 139 (136-145) mmol/L Potassium 3.2 L (3.5-5.1) mmol/L Chloride 108 H (98-107) mmol/L Carbon Dioxide 22 (21-32) mmol/L Anion Gap 9 (3-11) BUN 16 (6-23) mg/dl Creatinine 0.74 (0.6-1.2) mg/dl Est Cr Clr Drug Dosing 92.8 ml/min eGFR 102.89 BUN/Creatinine Ratio 21.6 H (10-20) Glucose 106 H (70-99(Fasting)) mg/dl Calcium 7.8 L (8.6-10.3) mg/dl Phosphorus 2.9 (2.5-4.9) mg/dl Magnesium 1.3 L (1.7-2.4) mg/dl Total Bilirubin (0.2-1.0) mg/dl Lactate Dehydrogenase (86-244) U/L B-Natriuretic Peptide (0-100) pg/ml Total Protein (6.0-8.3) gm/dl Albumin (3.4-5.0) gm/dl Procalcitonin (0-0.5) ng/ml Urine Color Urine Appearance (Clear) Urine pH (4.5-7.5) Ur Specific [place] (1.000-1.030) Urine Protein (Negative) Urine Glucose (UA) (Negative) Urine Ketones (Negative) Urine Blood (Negative) Urine Nitrite (Negative) Urine Bilirubin (Negative) Urine Urobilinogen (Negative) Ur Leukocyte Esterase (Negative) Urine WBC (Auto) (0-5) /hpf Urine RBC (Auto) (0-2) /hpf U Hyaline Cast (Auto) (0-2) /lpf U Epithel Cells (Auto) (0-2) /hpf Urine Bacteria (Auto) (None Seen) Urine Mucus (None Prsent) Urine Comment Fluid Neutrophils % % Fluid Lymphocytes % % Fluid Meso/Macro/[place] % % Fluid Slide Review Fluid Comment Pleural Fluid Source Pleural Color Pleural Appearance Pleural pH (7.3-7.4) Pleural WBC (Auto) /uL Pleural RBC (Auto) /uL Pleural Total Protein gm/dl Pleural LDH Pleural Glucose mg/dl Pleural Amylase U/L Pleural Cholesterol Nasal Screen MRSA (PCR) (Negative) Random Vancomycin (10-20) mcg/ml Adenovirus (PCR) (NotDetected) B. pertussis DNA (PCR) (NotDetected) B.parapertussis DNA PCR (NotDetected) C. pneumoniae DNA (PCR) (NotDetected) Coronavirus OC43 (PCR) (NotDetected) Coronavirus HKU1 (PCR) (NotDetected) Coronavirus 229E (PCR) (NotDetected) SARS-CoV-2 (PCR) (NotDetected) Coronavirus NL63 (PCR) (NotDetected) Human Metapneumovir PCR (NotDetected) Influenza Type A (PCR) (NotDetected) Influenza Type B (PCR) (NotDetected) M. pneumoniae (PCR) (NotDetected) Parainfluenza 1 (PCR) (NotDetected) Parainfluenza 2 (PCR) (NotDetected) Parainfluenza 3 (PCR) (NotDetected) Parainfluenza 4 (PCR) (NotDetected) RSV (PCR) (NotDetected) Entero/Rhino (PCR) (NotDetected) Blood Type Antibody Screen Crossmatch 03/03/25 03/03/25 03/02/25 Range/Units 16:28 05:43 20:29 WBC 11.46 H 11.92 H (4.8-10.8) K/ul RBC 3.08 L 3.22 L (4.20-5.40) M/uL Hgb 7.3 L 7.9 L 8.3 L (12.0-16.0) g/dL Hct 24.4 L 25.7 L 27.0 L (37.0-47.0) % MCV 79.2 L 79.8 L (80.0-100.0) fL MCH 23.7 L 24.5 L (25.0-34.0) pg MCHC 29.9 L 30.7 L (32.0-36.0) g/dL RDW Std Deviation 53.3 H 53.8 H (36.4-46.3) fL RDW Coeff of Mita 18.6 H 18.6 H (11.5-14.5) % Plt Count 191 235 (130-400) K/uL MPV 9.1 L 9.5 (9.4-12.4) fL Immature Gran % (Auto) 0.4 0.5 % Neut % (Auto) 85.1 84.9 % Lymph % (Auto) 7.2 7.7 % [place] % (Auto) 5.9 5.8 % Eos % (Auto) 1.3 1.0 % Baso % (Auto) 0.1 0.1 % Neut # (Auto) 9.74 H 10.12 H (1.40-6.50) K/uL Lymph # (Auto) 0.83 L 0.92 L (1.20-3.40) K/uL [place] # (Auto) 0.68 H 0.69 H (0.11-0.59) K/uL Eos # (Auto) 0.15 0.12 (0.00-0.50) K/uL Baso # (Auto) 0.01 0.01 (0.00-0.20) K/uL Immature Gran # (Auto) 0.05 0.06 (0.01-0.20) K/uL Absolute Nucleated RBC (0.00-0.12) K/uL Nucleated RBC % (auto) % Polychromasia 1+ 1+ Microcytosis Tear Drop Cells 1+ Ovalocytes 1+ PT 13.5 H (9.0-12.0) Seconds INR 1.3 H (0.9-1.1) APTT 25 23 (21-31) Seconds PTT Ratio 0.9 0.8 Heparin Anti-Xa, Unfract (0.3-0.7) IU/ml VBG pH (7.36-7.41) VBG pCO2 (38-50) mmHg VBG pO2 mmHg VBG HCO3 mmol/L VBG O2 Saturation % VBG Base Excess mEq/L Sodium 142 (136-145) mmol/L Potassium 3.3 L (3.5-5.1) mmol/L Chloride 110 H (98-107) mmol/L Carbon Dioxide 21 (21-32) mmol/L Anion Gap 11 (3-11) BUN 11 (6-23) mg/dl Creatinine 0.59 L (0.6-1.2) mg/dl Est Cr Clr Drug Dosing 116.5 ml/min eGFR 114.61 BUN/Creatinine Ratio 18.6 (10-20) Glucose 93 (70-99(Fasting)) mg/dl Calcium 7.9 L (8.6-10.3) mg/dl Phosphorus (2.5-4.9) mg/dl Magnesium (1.7-2.4) mg/dl Total Bilirubin (0.2-1.0) mg/dl Lactate Dehydrogenase (86-244) U/L B-Natriuretic Peptide (0-100) pg/ml Total Protein (6.0-8.3) gm/dl Albumin (3.4-5.0) gm/dl Procalcitonin (0-0.5) ng/ml Urine Color Urine Appearance (Clear) Urine pH (4.5-7.5) Ur Specific [place] (1.000-1.030) Urine Protein (Negative) Urine Glucose (UA) (Negative) Urine Ketones (Negative) Urine Blood (Negative) Urine Nitrite (Negative) Urine Bilirubin (Negative) Urine Urobilinogen (Negative) Ur Leukocyte Esterase (Negative) Urine WBC (Auto) (0-5) /hpf Urine RBC (Auto) (0-2) /hpf U Hyaline Cast (Auto) (0-2) /lpf U Epithel Cells (Auto) (0-2) /hpf Urine Bacteria (Auto) (None Seen) Urine Mucus (None Prsent) Urine Comment Fluid Neutrophils % % Fluid Lymphocytes % % Fluid [place]/Macro/[place] % % Fluid Slide Review Fluid Comment Pleural Fluid Source Pleural Color Pleural Appearance Pleural pH (7.3-7.4) Pleural WBC (Auto) /uL Pleural RBC (Auto) /uL Pleural Total Protein gm/dl Pleural LDH Pleural Glucose mg/dl Pleural Amylase U/L Pleural Cholesterol Nasal Screen MRSA (PCR) (Negative) Random Vancomycin (10-20) mcg/ml Adenovirus (PCR) (NotDetected) B. pertussis DNA (PCR) (NotDetected) B.parapertussis DNA PCR (NotDetected) C. pneumoniae DNA (PCR) (NotDetected) Coronavirus OC43 (PCR) (NotDetected) Coronavirus HKU1 (PCR) (NotDetected) Coronavirus 229E (PCR) (NotDetected) SARS-CoV-2 (PCR) (NotDetected) Coronavirus NL63 (PCR) (NotDetected) Human Metapneumovir PCR (NotDetected) Influenza Type A (PCR) (NotDetected) Influenza Type B (PCR) (NotDetected) M. pneumoniae (PCR) (NotDetected) Parainfluenza 1 (PCR) (NotDetected) Parainfluenza 2 (PCR) (NotDetected) Parainfluenza 3 (PCR) (NotDetected) Parainfluenza 4 (PCR) (NotDetected) RSV (PCR) (NotDetected) Entero/Rhino (PCR) (NotDetected) Blood Type A Positive Antibody Screen NEGATIVE Crossmatch Diagnostic Findings Abdomen Fluoroscopy 02/28/25 00:00 FL KUB CLINICAL HISTORY: LEFT STENT PLACEMENT COMPARISON STUDY: None FLUOROSCOPY TIME: 5 seconds FLUOROSCOPY IMAGES: 4 EXPOSURE DOSE: 1 mGy FINDINGS: Fluoroscopy was provided for urologic procedure. IMPRESSION: Intraoperative fluoroscopy. ACT 112: Negative or not required by law. Electronically signed by: Ricardo Green M.D. 03/01/2025 8:24 AM Abdomen/Pelvis CT 03/02/25 14:52 CT ABDOMEN and PELVIS with INTRAVENOUS CONTRAST HISTORY: Abdominal pain TECHNIQUE: CT abdomen and pelvis with contrast. IV CONTRAST: 100 mL of OMNIPAQUE 300 ENTERIC CONTRAST: Not Given COMPARISON: CT abdomen and pelvis February 26, 2025 FINDINGS: LOWER CHEST: New multifocal pneumonia in the included lung bases involving the lingula and bilateral lower lobes. Small right greater than left pleural fluids are similar to previous LIVER: Redemonstrated numerous hepatic lesions and masses measuring up to 4.5 cm. GALLBLADDER/BILIARY: Unremarkable gallbladder. No abnormal biliary dilatation. SPLEEN: Unremarkable. PANCREAS: Unremarkable. ADRENALS: Unremarkable. KIDNEYS: Interval placement of a left-sided internalized ureteral stent with resolution of the previously present hydroureteronephrosis. Right sided internalized ureteral stent is again seen. Cortical cysts. No stones or hydronephrosis identified. Ill-defined transcortical hypoattenuations are suggested in the renal parenchyma, especially in the right kidney. Recommend correlation with possible pyelonephritis PERITONEUM/RETROPERITONEUM. Mild enlarged portacaval lymph nodes. No aortic aneurysm. IVC filter. Small ascites appears similar to previous. GASTROINTESTINAL: No obstruction. Redemonstrated postoperative changes of sleeve gastrectomy and multiple bowel resections. Loop ileostomy is again seen in the right lower quadrant. There are multiple loops of small bowel that are moderately distended with fluid and gas. There is a suggestion of transition point in the left lower quadrant of the abdomen around series 2, image 55. In this area, there is matted appearance of the multiple loops of small bowel closely approximating the anterior abdominal wall fascia whether there are postsurgical changes, indicative of adhesions. REPRODUCTIVE: Status post hysterectomy. Likely left adnexal cystic structure seen in the left paracolic gutter (series 2, image 44) URINARY BLADDER: There are layering hyperdense materials within the lumen of the urinary bladder (series 2, image 72 for example) that are new from the previous examination 4 days ago. Small intraluminal air is also present. BONES: No acute findings. IMPRESSION: New multifocal pneumonia in the included lung bases involving the lingula and bilateral lower lobes. Multiple loops of small bowel are moderately distended with fluid and gas with a suggested transition point in the left lower quadrant of the abdomen where there are extensive postoperative adhesions. Small bowel obstruction is suspected. Please clinically correlate. Extensive postsurgical changes are redemonstrated as above. Multiple ill-defined hepatic lesions and masses are again seen, compatible with metastatic disease Interval placement of a left-sided internalized ureteral stent with resolution of the previously present hydroureteronephrosis. NEW layering hyperdense materials within the lumen of the urinary bladder. These are likely blood products and may be postprocedural in nature given interval placement of a left-sided ureteral stent Ill-defined transcortical hypoattenuations are suggested in the renal parenchyma, especially in the right kidney. Recommend correlation with possible pyelonephritis Electronically signed by Maximo Khalil 03-02-2025 7:[address] 03/05/25 13:23 CT chest diagnostic wo con CT DOSE: 443.65 mGy.cm CLINICAL HISTORY: Pna under Rx, now w/ increasing O2 need. TECHNIQUE: Multiaxial CT images of the chest were performed without contrast. A dose lowering technique was utilized adhering to the principles of ALARA. COMPARISON STUDY: 02/02/2025 FINDINGS: There are bilateral pleural effusions, moderate on the right small on the left, increased. There is increased bandlike and patchy consolidation in the lower lung lobes, right greater than left. There is increased scattered patchy groundglass opacity in the upper lobes, left greater than right. No pneumothorax seen. No enlarged adenopathy. The esophagus is fluid-filled and mildly dilated. Represent reflux or reduced esophageal motility. No pericardial effusion. Masses at the upper liver are grossly stable. No acute osseous finding seen. IMPRESSION: Increased pneumonia and increased pleural effusions. ACT 112: Negative or not required by law. Electronically signed by: Ricardo Green M.D. 03/05/2025 3:09 PM KUB X-Ray 03/07/25 14:16 EXAM: Radiograph of the Abdomen 1 View INDICATION: Pain TECHNIQUE: Frontal supine view of the abdomen/pelvis. COMPARISON: CT 03/02/2025 FINDINGS: Limitations: None. Lower thorax: Small right pleural effusion and bilateral basilar airspace consolidation noted. Gastrointestinal tract: Relatively little bowel gas noted. Organs: Visualized organ shadows appear grossly normal. Bones/joints: No fracture, erosion or dislocation. Soft tissues: No abnormality noted. No radiopaque foreign body noted. Tubes, lines and devices: Inferior vena cava filter and bilateral ureteral stents in good position and unchanged. IMPRESSION: 1. Nonspecific relatively gasless abdomen. Consider follow-up CT. 2. Right pleural effusion and bilateral basilar airspace consolidation noted. ACT 112: N/A Electronically signed by Eufemia Swann 03-07-2025 5:17 PM Chest X-Ray 03/09/25 12:51 XR chest 1V not portable HISTORY: 44 years-old Female s/p rt thora status post thoracentesis COMPARISON: Chest radiograph of same day at 5:35 AM TECHNIQUE: AP view of the chest FINDINGS: Hypoinflation. Cardiac silhouette is enlarged. Right IJ [id number] catheter in place. Mild linear bibasilar opacities suggestive of atelectasis. Small right pleural effusion has decreased in size from prior. No postprocedural pneumothorax identified. The bones of the chest appear grossly intact. Mild mid to lower thoracic levoscoliosis. IVC filter in place. IMPRESSION: No postprocedural pneumothorax identified. ACT 112: Negative or not required by law. The above report was generated using voice recognition software. It may contain grammatical, syntax or spelling errors. Electronically signed by: Jonn Li M.D. 03/09/2025 1:17 PM PG Care Time/CCT Total # of Minutes Spent Total Time Spent with Patient: Total time spent is greater than 50% in coordination of care (as documented) at patient's floor/unit and/or counseling patient: I spent 80 minutes overall addressing this case: 10 min in medical data review/discussion with referring provider(s) and/or preparation for the visit 15 min in direct interaction with the patient/exam 30 min in Advance Care Planning/Goals of Care discussions as detailed above in note (must be >16min) 10 min in subsequent review and synthesis of assessment and plan 15 min communicating with other providers regarding the patient's case: Advanced Care Planning 81518 Advanced Care Planning 30 [place] [address] SUB INP/OBS CARE 3/50MIN (25 - SIGNIFICANT, SEPARATELY IDENTIFIABLE ) Patient Type Established Medical Decision Making High Complexity Diagnoses Cancer related pain G89.3 Generalized abdominal pain R10.84 Abdominal location: generalized Vomiting of fecal matter with nausea R11.13 Vomiting type: vomiting of fecal matter Palliative care by specialist Z51.5 Adenocarcinoma, colon C18.9 Advanced care planning/counseling discussion Z71.89 Additional Codes Advanced Care Planning - 60818 Advanced Care Planning 30 Min: 70723 Advanced Care Planning 30 Min ([id number]) Comment [id number], [id number] (2) Abdominal pain Abdominal location: generalized Qualified Code(s): R10.84 - Generalized abdominal pain (3) Nausea & vomiting Vomiting type: vomiting of fecal matter Qualified Code(s): R11.13 - Vomiting of fecal matter
--- NOTE | 2025-03-09 14:54 | Hospitalist Progress Note ---
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 difficile s/p treatment, anxiety and depression, iron deficiency anemia presents with abdominal pain. Patient is having ongoing pain for several weeks now. This is her third admission since last 1 month. Patient is status post right ureteral stent on and supposed to follow-up outpatient for stent removal. She was on Bactrim and amoxicillin for postop hepatic abscess, says no longer on antibiotics. She was again admitted 06 of February for small bowel obstruction and was discharged on 02/08/2025. Patient is followed with palliative care. Currently on p.o. Dilaudid 4 mg every 3 hours as needed for pain. Patient says Dilaudid is causing her nauseous. States abdominal pain is not getting better. She is having a lot of nausea and vomiting. She says not eating because of nausea. She is being managed for the following: Partial SBO: Patient presents with abdominal pain and persistent nausea and vomiting with decreased p.o. intake. Metastatic colon cancer Patient presents with abdominal pain, nausea, vomiting, decreased p.o. intake. Status post EGD 03/02, large amount of retained fluid in the stomach and esophagus noted suggestive of partial obstruction. LA grade D reflux esophagitis with bleeding noted. Biopsies were taken----> follow-up on biopsy results. Status post CTAP with IV contrast 03/02: Noted multifocal pneumonia in the lung bases bilaterally. Noted small bowel obstruction. Noted findings concerning for possible right pyelonephritis. Per prior attending: Patient's surgical oncologist Dr. Johnson reached out on March 01, 2025. I provided update on patient's current condition. He reports that unfortunately patient does have recurrence of colon cancer given elevated tumor markers. The initial plan was reversal of the colostomy- which will be kept on hold for the time being as it will delay patient to obtain chemotherapy. He also asked me to discuss with patient if she wants to follow- up with local oncology for chemotherapy. I updated the patient about my discussion with her surgical oncologist on March 02, 2025; she verbalized understanding. She wants to follow-up at [facility] oncology. She reports that PET/CT is still not done yet; would like to follow-up with them to have it done. Pt reports better control of N, V. Is tolerating full liq now. Continue on Compazine, Zofran and Phenergan as needed for nausea/vomiting. GI venancio, appreciate eval. General surgery on board, recs are full liq diet and reglan Continue with PPI. and multivitamins with minerals, IV thiamine, IV folic acid. Monitor and replete electrolytes. c/w trial low dose reglan 03/08 at 5 mg tid. Acute UTI/ Possible right pyelonephritis Abdominal pain, hydroureteronephrosis Pt presents with abdominal pain mostly on left. Of note, patient recently presented with right-sided abdominal pain status post right ureteral stent placement February 03, 2025 with improvement in the pain. Admitting CTAP with mild left-sided hydronephroureterosis Patient underwent cystoscopy with left ureteral stent placement February 08, 2025, reports improvement in her left abdominal pain. Urine culture grew Salma multiple times, given recent ureteral procedure; pt started on fluconazole for candiduria. s/p 8 d fluconazole, stopped 03/08. Appreciate ID eval. QTc 03/08 - 443 Follow-up with urology upon discharge. Pt now with hematuria, UCx has been sent, if Hematuria continues will likely recall uro. Multifocal pneumonia: concern for mutlifocal pna on lung bases noted on 03/02 CTAP with IV contrast. 03/05 CT chest w/ increasing pneumonia and increased pleural effusion. MRSA +ve. Sp Cx +ve for MRSA. Pulm consulted, appreciate recs. ID evaled 03/08, recs vanc for 7 days and if being dc'd consider po linezolid to complete. s/p rt thoracentesis - 500 ml out, f/u fluid studies, cx and pathology reports. Anemia s/p EGD - see above, c/w iv ppi. s/p 1 unit PRBC. Monitor HnH. History of PE: On Eliquis- resumed after EGD, now on hep drip as pt not able to take po. Anxiety and depression: On Lexapro, BuSpar and Ativan as needed. c/w as able. GERD: on protonix-continue DVT prophylaxis: On Heparin drip Disposition: pcu/tele floor Full code. Please note the above document was generated using voice recognition software. It may contain grammatical, syntax or spelling errors. Any formal questions or concerns about the content, text or information contained within the body of this dictation should be directly addressed to the provider for clarification Admission and Anticipated Discharge Date Admission Date: February 27, 2025 Subjective Patient seen and examined. Pt reports better control of nausea, vomiting overall, She states being able to tolerate liquid diet. Pt reports chest pain, reports ticklish throat and cough, had increased O2 need overnight, will give one dose of iv lasix. Pt denies fever, sob. reports abd pain under control. Pt reports no epigastric burning sensation. stoma w/ liquid stool in the bag. Physical Exam Physical Exam: Constitutional: on RA, NAD. Respiratory: Bilateral occ rales Cardiovascular: RRR, no murmur, no edema Vessels: no JVD or carotid bruit Chest: normal inspection of chest Abdomen: soft, No epigastric tender. colostomy bag with small amount of liquid stool Musculoskeletal: no cyanosis or clubbing, extremities motor strength 5/5 Skin: no rashes, warm and dry normal turgor Neurologic: PERRL, EOMI, accommodation nl, no face palsy, no dysarthria CN's II- XI intact bilaterally and moves all extremities Results & Data Results & Data Vital Signs (Past 12 Hours) Vital Signs Temp Pulse Pulse Resp BP Pulse Ox O2 Del Method 03/09/25 14:33 107 H 03/09/25 14:24 36.9 C 105 H 18 118/83 95 Nasal Cannula 03/09/25 13:51 37 C 107 H 18 129/83 96 Nasal Cannula 03/09/25 13:35 37.0 C 106 H 18 132/89 96 Nasal Cannula 03/09/25 09:30 96 Nasal Cannula 03/09/25 07:58 Oxymask 03/09/25 07:22 102 H 03/09/25 07:05 37.7 C H 105 H 14 135/91 90 Oxymask 03/09/25 05:48 113 H 20 100 Non-rebreather 03/09/25 05:21 36.8 C 105 H 16 120/82 95 Oxymask O2 Flow Rate 03/09/25 14:33 03/09/25 14:24 3 03/09/25 13:51 3 03/09/25 13:35 3 03/09/25 09:30 3 03/09/25 07:58 12 03/09/25 07:22 03/09/25 07:05 03/09/25 05:48 15 03/09/25 05:21 15 (1) Abdominal pain Abdominal location: generalized Qualified Code(s): R10.84 - Generalized abdominal pain
--- NOTE | 2025-03-09 15:26 | Ultrasound Report ---
ULTRASOUND-GUIDED RIGHT THORACENTESIS CLINICAL HISTORY: Right pleural effusion PROCEDURE: Procedure and risks were explained. Informed consent was obtained. A final timeout was com pleted. The right posterior thorax was prepped and draped in sterile fashion. 1% lidocaine was utiliz ed for skin anesthesia. Utilizing ultrasound guidance, a 5 Kisw[place]ili safety centesis catheter was advanced into the right pleura l effusion. Ultrasound images were obtained. A total of 500 mL of pleural fluid was removed and sent to the lab. The catheter was removed and Band-Aid applied. The patient tolerated the procedure well. A chest x-ray will be obtained and vital signs will be monitored postprocedure. IMPRESSION: Ultrasound-guided right thoracentesis as above. Performed, dictated, and signed by Zeferino Hayward PA-C; to be co-signed by Dr. Flip Jose. Electronically signed by: Flip Jose M.D. 03/09/2025 3:53 PM
--- NOTE | 2025-03-09 15:28 | Surgery Progress Note ---
<Statement entered by Dominic Pagan MD - 03/09/25 15:52> I saw the patient with the physician speech assistant and I agree w the assessment and plan of care. Date of Service March 09, 2025 Assessment & Plan (1) Partial small bowel obstruction: Plan: Pt w/ metastatic ca here with nausea/vomiting and concern for partial SBO she remains with intermittent nausea/vomiting. feels unwell today s/p thoracentesis we see reglan has been started and recommend seeing how patient does with this new medication Ostomy output remains with some liquid stool If repeated bouts of emesis would back down to NPO no plans for surgical intervention, will follow Admission and Anticipated Discharge Date Admission Date: February 27, 2025 Subjective Patient doesn't feel great after thoracentesis on our visit. Emesis in basin. Physical Exam Physical Exam: awake, appears tired Gastrointestinal (Abdomen): Percussion/Palpation: abdomen soft small amount of liquid ostomy output Results & Data Vital Signs (Past 12 Hours) Vital Signs Temp Pulse Pulse Resp BP BP Pulse Ox 03/09/25 15:05 98.1 F 112 H 14 124/78 93 03/09/25 14:33 107 H 03/09/25 14:24 98.4 F 105 H 18 118/83 95 03/09/25 13:51 98.6 F 107 H 18 129/83 96 03/09/25 13:35 98.6 F 106 H 18 132/89 96 03/09/25 09:30 96 03/09/25 07:58 03/09/25 07:22 102 H 03/09/25 07:05 99.9 F H 105 H 14 135/91 90 03/09/25 05:48 113 H 20 100 03/09/25 05:21 98.2 F 105 H 16 120/82 95 O2 Del Method O2 Flow Rate 03/09/25 15:05 Nasal Cannula 03/09/25 14:33 03/09/25 14:24 Nasal Cannula 3 03/09/25 13:51 Nasal Cannula 3 03/09/25 13:35 Nasal Cannula 3 03/09/25 09:30 Nasal Cannula 3 03/09/25 07:58 Oxymask 12 03/09/25 07:22 03/09/25 07:05 Oxymask 03/09/25 05:48 Non-rebreather 15 03/09/25 05:21 Oxymask 15 PG Care Time/CCT Total # of Minutes Spent Total Time Spent with Patient: Total time spent is greater than 50% in coordination of care (as documented) at patient's floor/unit and/or counseling patient: Coding Level of Care Code 25367 SUB INP/OBS CARE 05/02MIN Diagnoses Partial small bowel obstruction K56.600
--- NOTE | 2025-03-09 19:48 | Communication Note ---
Date of Service: March 09, 2025 Patient with gross hematuria later complaining of right flank pain. IV heparin held. CT abdomen pelvis 1. Bilateral double-J ureteral stents remain in position. However, there is new mzbu-vo-rcgrzwiw right hydronephrosis and proximal right ureterectasis. This finding raises the suspicion for potential developing occlusion or insufficiency of the right ureteral stent. However, no significant perinephric abnormality noted bilaterally. 2. Similar perisplenic fluid. 3. Prominent fluid distention of the distal thoracic esophagus. Postsurgical changes of the gastroesophageal junction. The clinical significance of this finding is indeterminate. UA (03/09) Wbc est Ap Hematuria secondary to complicated UTI/obstructive uropathy, ongoing IV heparin Rx for PE New right hydronephrosis, history of right ureteral stent Follow urine CS, Ertapenem (history ESBL) Continue to hold IV heparin Request a.m. provider to contact urology service in AM. N.p.o. until seen by urology in anticipation of procedure.
[2025-03-09 20:26] LABS: Hematocrit (blood only) 24.2 % (37.0-47.0); Hemoglobin 7.8 g/dL (12.0-16.0)
[2025-03-09] MEDS: ERTAPENEM 1000MG 1,000 MG/10 ML SYR IV SCH (21:42)
--- NOTE | 2025-03-09 23:15 | CT Scan Report ---
Exam(s): CT ABDOMEN + PELVIS Without Contrast EXAM: CT Abdomen and Pelvis Without Intravenous Contrast CLINICAL HISTORY: R flank pain, heparin. OTHER: Other Notes: R flank pain, heparin TECHNIQUE: Axial computed tomography images of the abdomen and pelvis without intravenous contrast. CTDI is 17.77 mGy and DLP is 892.4 mGy-cm. Automated exposure control was utilized for the study. A dose lowering technique was utilized adhering to the principles of ALARA. COMPARISON: CT abdomen and pelvis with contrast dated 03/02/2025 FINDINGS: Lung bases: No significant abnormality. No mass. No consolidation. Pleural space: The bilateral pleural effusions have decreased in size but remain. Mediastinum: Prominent fluid distention of the distal thoracic esophagus. Postsurgical changes of the gastroesophageal junction. ABDOMEN: Liver: The multiple lesions throughout the liver are not well demonstrated on this noncontrast examination. Gallbladder and bile ducts: The gallbladder is mildly distended. There is a solitary noncalcified gallstone noted in the gallbladder with surrounding slight hyperdense material. No ductal dilation. Pancreas: No significant abnormality. No ductal dilation. Spleen: Similar perisplenic fluid. Adrenals: No significant abnormality. No mass. Kidneys and ureters: Bilateral double-J ureteral stents remain in position. However, there is new qkcw-io-clwhqnlk right hydronephrosis and proximal right ureterectasis. Stomach and bowel: Evaluation of the bowel is limited without contrast. Similar diffuse fluid-filled small bowel. A right sided ileostomy is noted. Subtotal colectomy remains. Incidental duodenal diverticulum noted, similar to the previous exam. Postsurgical changes also noted along the greater curvature of the stomach consistent with previous gastric reduction surgery. PELVIS: Appendix: Surgically absent. Bladder: The bladder is unremarkable and is stable in appearance, mild- to-moderately distended. No stones. Reproductive: Status post hysterectomy. Subperitoneal space: Similar to minimally increased presacral edema. ABDOMEN and PELVIS: Intraperitoneal space: No significant abnormality. No free air. No significant fluid collection. Bones/joints: No acute fracture. No dislocation. Soft tissues: See above. Mild fat stranding noted along the lateral aspect of the pelvis bilaterally. Vasculature: An IVC filter is noted in position. No abdominal aortic aneurysm. Lymph nodes: No significant abnormality. No enlarged lymph nodes. IMPRESSION: 1. Bilateral double-J ureteral stents remain in position. However, there is new pgct-et-mtytlyed right hydronephrosis and proximal right ureterectasis. This finding raises the suspicion for potential developing occlusion or insufficiency of the right ureteral stent. However, no significant perinephric abnormality noted bilaterally. 2. Similar perisplenic fluid. 3. Prominent fluid distention of the distal thoracic esophagus. Postsurgical changes of the gastroesophageal junction. The clinical significance of this finding is indeterminate. 4. Additional findings previously identified, as noted above. Electronically signed by: Zeferino Umaña MD 03/09/25 23:15 PM
[2025-03-10] MEDS: POTASSIUM CHLORIDE CRTAB 20 MEQ TABCR PO STA (02:46)
[2025-03-10] MEDS: MAGNESIUM SULFATE / D5W 1 GM/100 ML BAG IV ONE (02:47)
[2025-03-10 08:44] LABS: Hematocrit (blood only) 25.0 % (37.0-47.0); Hemoglobin 7.8 g/dL (12.0-16.0); Mean Corpuscular Hemoglobin 25.3 pg (25.0-34.0); Mean Corpuscular Volume 81.2 fL (80.0-100.0); Platelet Count 204 K/uL (130-400); RDW Standard Deviation 54.7 fL (36.4-46.3); Red Blood Count 3.08 M/uL (4.20-5.40); White Blood Count 13.99 K/ul (4.8-10.8)
[2025-03-10 09:00] LABS: Anion Gap 9.0 (3-11); Blood Urea Nitrogen 17.0 mg/dl (6-23); Calcium 8.6 mg/dl (8.6-10.3); Carbon Dioxide 33.0 mmol/L (21-32); Chloride 94.0 mmol/L (98-107); Creatinine Clr Calc Pharmacy 74.8 ml/min; Glucose 103.0 mg/dl (70-99(Fasting)); Magnesium 2.4 mg/dl (1.7-2.4); Potassium 4.3 mmol/L (3.5-5.1); Sodium 136.0 mmol/L (136-145)
[2025-03-10 09:04] LABS: ANTI-Xa, UFH(UnfractionatedHep < 0.10 IU/ml (0.3-0.7)
--- NOTE | 2025-03-10 09:27 | Pulmonology Progress Note ---
Date of Service March 10, 2025 Assessment & Plan (1) Pulmonary embolism: Acute cor pulmonale presence: unspecified Chronicity: acute Pulmonary embolism type: unspecified Qualified Code(s): I26.99 - Other pulmonary embolism without acute cor pulmonale (2) Pleural effusion: (3) Multifocal pneumonia: Plan Patient is a 44-year-old female with a history of metastatic colon adenocarcinoma with mets to the liver and peritoneum. The patient also has a history of diverticulitis with perforation status post colectomy and end colostomy placement, small bowel obstruction, history of C. difficile infection, iron deficiency anemia, history of DVT and PE, migraines, depression and anxiety. The patient presented to [facility] on 02/26/2025 for evaluation of worsening abdominal pain, nausea, vomiting and poor p.o. intake. The patient had a CT of the chest performed which showed bilateral pleural effusions (right greater than left) with patchy GGO's noted in bilateral upper lobe and dense consolidations in bilateral lower lobes. Thoracentesis was attempted on 03/06/2025 however was a dry tap. Ultrasound was performed on 03/08/2025 showing a pocket of fluid in the right hemithorax. Bedside thoracentesis was offered however patient said that she was too uncomfortable to sit up for the procedure and requested that the procedure be done with IR. Thoracentesis on right by IR 03/09/2025. 500 cc of fluid was removed, 80% neutrophils, protein is low, no organisms on Gram stain, cultures with no growth to date. LDH is slightly elevated, ratio is 0.67 which does slightly meet lights criteria. Cholesterol is pending. Patient underwent repeat imaging of the abdomen which showed some persistent pleural effusion on the right. There is associated airspace disease. Problem list: Multifocal pneumonia (sputum culture growing MRSA) Bilateral pleural effusions Pulmonary embolism Recommendation/plan: Patient has been on antibiotics with cefepime, Doxy and vancomycin. Transition to vancomycin only 03/08. Infectious disease has been consulted. They recommend continuing vancomycin through 03/13/2025. The patient is able for discharge prior to the sixth then they states she can while on linezolid. Thoracentesis was performed on the right by IR 03/09/2025. This shows exudative effusion (barely only by LDH), it is neutrophilic predominant, Gram stain negative. There is associated airspace disease. Likely parapneumonic effusion. Given her severe pneumonia and parapneumonic effusion I would recommend 2 weeks of antibiotics. Follow-up cytology. Recommend repeat imaging of the chest in 6 to 8 weeks for evaluation of effusion and resolution of pneumonia. Continue anticoagulation for PE. Given her underlying malignancy diagnosis she will likely need lifelong anticoagulation. Thank you for this consultation. Pulmonary will sign off at this time. Please call directly with any questions. Admission and Anticipated Discharge Date Admission Date: February 27, 2025 Subjective Patient examined during bedside rounds this morning. She is resting comfortably in bed. Says that she has some chest pain where thoracentesis was performed yesterday. No shortness of breath appreciated. Still having significant back pain. She is upset that she cannot have Dilaudid right now. No worsening cough or phlegm production. Denies fevers. Review of Systems Review of Systems: As in HPI. Physical Exam Physical Exam: Physical examination: General: Appears comfortable, resting in bed, not in distress. HEENT: Normocephalic, atraumatic. Extraocular movements intact. Sclera are nonicteric. No JVD appreciated. Skin: Warm and dry. No rashes appreciated. No jaundice appreciated. Cardiovascular: Heart is a regular rate and rhythm, no murmurs appreciated on my exam. Lungs: Diminished at bases. No wheezing. On nasal cannula. Nontachypneic. Neurologic: Awake and alert, oriented. CN II through XII are grossly intact. Speech is fluent. Nonfocal exam. Psychiatric: Appropriate cooperative during my exam. Results & Data Results & Data Vital Signs (Past 12 Hours) Vital Signs Temp Pulse Pulse Pulse Resp BP BP 03/10/25 07:22 36.8 C 101 H 18 131/90 03/10/25 02:40 36.9 C 109 H 18 135/92 03/09/25 23:29 36.7 C 103 H 17 138/95 03/09/25 22:00 106 H Pulse Ox O2 Del Method O2 Flow Rate 03/10/25 07:22 96 Nasal Cannula 3 03/10/25 02:40 96 Nasal Cannula 3 03/09/25 23:29 97 Nasal Cannula 3 03/09/25 22:00 PG Care Time/CCT Total # of Minutes Spent Total Time Spent with Patient: Total time spent is greater than 50% in coordination of care (as documented) at patient's floor/unit and/or counseling patient: Coding [place] [address] SUB INP/OBS CARE 235MIN Patient Type Established History Detailed Exam Detailed Medical Decision Making Moderate Complexity Diagnoses Pulmonary embolism I26.99 Acute cor pulmonale presence: unspecified Chronicity: acute Pulmonary embolism type: unspecified Pleural effusion J90 Multifocal pneumonia J18.8
[2025-03-10] MEDS: LIDOCAINE 5% 1 PATCH TD SCH (09:32)
[2025-03-10] MEDS: VANCOMYCIN LEVEL ONE (09:33)
--- NOTE | 2025-03-10 10:38 | Electrocardiogram Report ---
Test Reason : Blood Pressure : */* mmHG Vent. Rate : 113 BPM Atrial Rate : 113 BPM P-R Int : 118 ms QRS Dur : 76 ms QT Int : 330 ms P-R-T Axes : 24 22 72 degrees QTcB Int : 452 ms Sinus tachycardia Otherwise normal ECG When compared with ECG of 08-Mar-2025 06:13, No significant change Confirmed by Chacho Lin ([id number]) on 03/10/2025 10:37:57 AM Referred By: REFERRED SELF Confirmed By: Chacho Lin
--- NOTE | 2025-03-10 11:20 | Pharmacy Report ---
Pharmacy PK ABX Note - Date of Service March 10, 2025 - Assessment and Plan Assessment 03/10: * Random vancomycin level this AM was ~18 mcg/ml - current dosing anticipated to achieve goal AUC/ASH therefore will continue current vancomycin regimen. ID recommending 7 days total for MRSA pneumonia. Today is day 5/7 for therapy. Patient s/p thoracentesis 03/09 - cultures pending. Patient with gross hematuria/flank pain - provider starting ertapenem d/t hx ESBL uti's and also ordered a urine culture. 03/08: * Sputum culture finalized as MRSA * SCr increasing (0.53 mg/dL -> 0.7 mg/dL -> 0.93 mg/dL) * Antibiotics to be de-escalated today per hospitalist. Discussed possible switch to linezolid (given tolerability concerns with vancomycin), but holding off on this for now until provider can discuss with patient (due to concomitant escitalopram and buspirone). * Pre-medicating with diphenhydramine 25 mg IV * Awaiting ID consult 03/07 * Sputum culture growing S. aureus, sensitivities pending * WBC downtrending, afebrile, tolerating vancomycin at slower rate * Infectious disease consulted * Random level today 15.5 mcg/mL correlates with achievement of target AUC/ASH 03/06 * 44 year old F receiving vancomycin/cefepime/doxycycline for treatment of multifocal pneumonia (increasing O2 requirements today) and IV fluconazole for urinary tract infection. Pertinent microbiologic data includes: Positive MRSA Nasal Swab, urine culture 02/27/25 growing randi albicans. 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 Will double length of infusion and pre- treat with diphenhydramine (ordered by pulm). Possibly could increase vancomycin dilution if needed. Patient is not a great linezolid candidate due to multiple serotonergic medications and daptomycin is not recommended for pneumonia treatment. Would recommend ID consult if not tolerating vancomycin for other treatment options. Plan Vancomycin * Continue vancomycin 1000 mg iv q 12 hours - dosing appropriate to finish out course of treatment * Continue to pre-medicate with iv Benadryl prior to vancomycin doses and will continue with slower vancomycin infusion Pharmacy will continue to follow and will adjust dose/frequency as necessary. Thank you. Pharmacy has transitioned to AUC monitoring for vancomycin. AUC/ASH is the preferred PK/PD target and is associated with decreased risk of nephrotoxicity compared to traditional trough targets.
--- NOTE | 2025-03-10 12:53 | Hospitalist Progress Note ---
Date of Service March 10, 2025 Assessment & Plan (1) Abdominal pain: Plan: 44-year-old female with past medical history significant for metastatic colon adenocarcinoma mets to liver and peritoneum, perforated diverticulitis/adenocarcinoma status post colostomy, pulm embolism on Eliquis, C. difficile s/p treatment, anxiety and depression, iron deficiency anemia presents with abdominal pain. Patient is having ongoing pain for several weeks now. This is her third admission since last 1 month. Patient is status post right ureteral stent on and supposed to follow-up outpatient for stent removal. She was on Bactrim and amoxicillin for postop hepatic abscess, says no longer on antibiotics. She was again admitted 06 of February for small bowel obstruction and was discharged on 02/08/2025. Patient is followed with palliative care. Currently on p.o. Dilaudid 4 mg every 3 hours as needed for pain. Patient says Dilaudid is causing her nauseous. States abdominal pain is not getting better. She is having a lot of nausea and vomiting. She says not eating because of nausea. She is being managed for the following: Partial SBO: Patient presents with abdominal pain and persistent nausea and vomiting with decreased p.o. intake. Metastatic colon cancer Patient presents with abdominal pain, nausea, vomiting, decreased p.o. intake. Status post EGD 03/02: Impression Normal duodenum, a sleeve gastrectomy was found with healthy-appearing mucosa, erythematous mucosa in the stomach biopsies, LA grade D reflux esophagitis with bleeding biopsies, in light of large amount of retained fluid in the stomach and esophagus at least some degree of partial obstruction motility is suspected likely related to overall tumor burden Pathology report reports of stomach biopsy, esophagus biopsy came back to be negative for any malignancy Pt reports better control of N, V. Is tolerating full liq now. Continue on Compazine, Zofran and Phenergan as needed for nausea/vomiting. General surgery on board, recs are full liq diet and reglan Continue with PPI. and multivitamins with minerals, IV thiamine, IV folic acid. Remains weak and lethargic with ongoing nausea and vomiting at times Minimal abdominal pain since last night Per prior attending: Patient's surgical oncologist Dr. Johnson reached out on March 01, 2025. I provided update on patient's current condition. He reports that unfortunately patient does have recurrence of colon cancer given elevated tumor markers. The initial plan was reversal of the colostomy- which will be kept on hold for the time being as it will delay patient to obtain chemotherapy. He also asked me to discuss with patient if she wants to follow- up with local oncology for chemotherapy. I updated the patient about my discussion with her surgical oncologist on March 02, 2025; she verbalized understanding. She wants to follow-up at [facility] oncology. She reports that PET/CT is still not done yet; would like to follow-up with them to have it done. Acute UTI/ Possible right pyelonephritis Abdominal pain, hydroureteronephrosis Status post CTAP with IV contrast 03/02: Noted multifocal pneumonia in the lung bases bilaterally. Noted small bowel obstruction. Noted findings concerning for possible right pyelonephritis. Of note, patient recently presented with right-sided abdominal pain status post right ureteral stent placement February 03, 2025 with improvement in the pain. Admitting CTAP with mild left-sided hydronephroureterosis Patient underwent cystoscopy with left ureteral stent placement February 08, 2025, reports improvement in her left abdominal pain. Urine culture grew Salma multiple times, given recent ureteral procedure; pt started on fluconazole for candiduria. s/p 8 d fluconazole, stopped 03/08. Appreciate ID eval. QTc 03/08 - 443 Pt now with hematuria, UCx has been sent, if Hematuria continues will likely recall uro. Has had hematuria with increasing pain last night and CT scan did show questio nable stent obstruction with new hydronephrosis Hematuria seems to be improving as of this morning Patient remains n.p.o. and for further evaluation by the urologist today urine culture was sent and started on intravenous ertapenem Multifocal pneumonia: Concern for mutlifocal pna on lung bases noted on 03/02 CTAP with IV contrast. 03/05 CT chest w/ increasing pneumonia and increased pleural effusion. MRSA +ve. Sp Cx +ve for MRSA. Pulm consulted, appreciate recs. ID evaled 03/08, recs vanc for 7 days and if being dc'd consider po linezolid to complete. s/p rt thoracentesis - 500 ml out, f/u fluid studies, cx and pathology reports. Parapneumonic effusionadvised to continue antibiotic for longer duration as per the coordinating producer Pathology still pending Anemia s/p EGD - see above, c/w iv ppi. s/p 1 unit PRBC. Monitor HnH. History of PE: On Eliquis- resumed after EGD, now on hep drip as pt not able to take po. Anxiety and depression: On Lexapro, BuSpar and Ativan as needed. c/w as able. GERD: on protonix-continue DVT prophylaxis: On Heparin drip Disposition: pcu/tele floor Full code. Please note the above document was generated using voice recognition software. It may contain grammatical, syntax or spelling errors. Any formal questions or concerns about the content, text or information contained within the body of this dictation should be directly addressed to the provider for clarification Admission and Anticipated Discharge Date Admission Date: February 27, 2025 Subjective 03/10/2025 The patient was seen and examined in telemetry unit She has been complaining of nausea and occasional vomiting Also increasing pain in the thoracentesis site on the right chest wall Denies any shortness of breath at rest but has been requiring 3 L to maintain saturation Review of Systems Review of Systems: All systems reviewed and are unremarkable except as noted below Physical Exam Physical Exam: Lying in bed without any acute distress Constitutional: + ill appearing and average body habitus Eyes: PERRL, conjunctivae normal, anicteric sclerae ENMT: external ear and nose normal, oropharynx normal Neck: trachea midline, no thyromegaly Respiratory: + respiratory distress ( minimal respira tory distress at rest) Auscultation: + diminished lung sounds ( right base mainly with occasional crackles) Cardiovascular: Rate/Rhythm: regular rate, regular rhythm and + tachycardic Heart Sounds: normal S1 and normal S2; no murmur Extremities: no edema Gastrointestinal (Abdomen): Inspection/Auscultation: normal bowel sounds; abdomen not distended Percussion/Palpation: + abdomen tender and abdomen soft Colostomy site seems to be intact and the bag is draining Musculoskeletal: No acute arthritis involving any of the joint Neurologic: normal touch/pain/proprioception and moves all extremities; no focal motor deficits Lymphatic: no cervical or axillary lymphadenopathy Results & Data Results & Data Vital Signs (Past 12 Hours) Vital Signs Temp Pulse Pulse Pulse Resp BP Pulse Ox 03/10/25 10:48 36.4 C L 101 H 16 141/88 H 90 03/10/25 08:11 03/10/25 08:10 117 H 03/10/25 07:22 36.8 C 101 H 18 131/90 96 03/10/25 02:40 36.9 C 109 H 18 135/92 96 O2 Del Method O2 Flow Rate 03/10/25 10:48 Nasal Cannula 3 03/10/25 08:11 Nasal Cannula 3 03/10/25 08:10 03/10/25 07:22 Nasal Cannula 3 03/10/25 02:40 Nasal Cannula 3 Laboratory Results Short CBC 03/09/25 03/10/25 Range/Units 20:09 08:06 WBC 13.99 H (4.8-10.8) K/ul Hgb 7.8 L 7.8 L (12.0-16.0) g/dL Hct 24.2 L 25.0 L (37.0-47.0) % Plt Count 204 (130-400) K/uL BMP 03/10/25 08:06 Sodium 136 Potassium 4.3 Chloride 94 L Carbon Dioxide 33 H BUN 17 Creatinine 0.91 Glucose 103 H Calcium 8.6 Medications Administered Laboratory Results WBC 13.99 K/ul (4.8-10.8) H 03/10/25 08:06 RBC 3.08 M/uL (4.20-5.40) L 03/10/25 08:06 Hgb 7.8 g/dL (12.0-16.0) L 03/10/25 08:06 Hct 25.0 % (37.0-47.0) L 03/10/25 08:06 MCV 81.2 fL (80.0-100.0) 03/10/25 08:06 MCH 25.3 pg (25.0-34.0) 03/10/25 08:06 MCHC 31.2 g/dL (32.0-36.0) L 03/10/25 08:06 RDW Std Deviation 54.7 fL (36.4-46.3) H 03/10/25 08:06 RDW Coeff of Mita 18.9 % (11.5-14.5) H 03/10/25 08:06 Plt Count 204 K/uL (130-400) 03/10/25 08:06 MPV 10.2 fL (9.4-12.4) 03/10/25 08:06 Immature Gran % (Auto) 0.7 % 03/04/25 11:45 Neut % (Auto) 81.1 % 03/04/25 11:45 Lymph % (Auto) 7.8 % 03/04/25 11:45 Yell % (Auto) 6.5 % 03/04/25 11:45 Eos % (Auto) 3.7 % 03/04/25 11:45 Baso % (Auto) 0.2 % 03/04/25 11:45 Neut # (Auto) 9.85 K/uL (1.40-6.50) H 03/04/25 11:45 Lymph # (Auto) 0.95 K/uL (1.20-3.40) L 03/04/25 11:45 Yell # (Auto) 0.79 K/uL (0.11-0.59) H 03/04/25 11:45 Eos # (Auto) 0.45 K/uL (0.00-0.50) 03/04/25 11:45 Baso # (Auto) 0.02 K/uL (0.00-0.20) 03/04/25 11:45 Immature Gran # (Auto) 0.08 K/uL (0.01-0.20) 03/04/25 11:45 Absolute Nucleated RBC 0.02 K/uL (0.00-0.12) 03/08/25 03:45 Nucleated RBC % (auto) 0.2 % 03/08/25 03:45 Polychromasia 1+ 03/04/25 11:45 Microcytosis Present 03/04/25 11:45 Tear Drop Cells 1+ 03/04/25 11:45 Ovalocytes 1+ 03/04/25 11:45 PT 13.5 Seconds (9.0-12.0) H 03/03/25 16:28 INR 1.3 (0.9-1.1) H 03/03/25 16:28 APTT 25 Seconds (21-31) 03/03/25 16:28 PTT Ratio 0.9 03/03/25 16:28 Heparin Anti-Xa, Unfract < 0.10 IU/ml (0.3-0.7) L 03/10/25 08:06 VBG pH 7.43 (7.36-7.41) H 03/09/25 05:46 VBG pCO2 46 mmHg (38-50) 03/09/25 05:46 VBG pO2 54 mmHg 03/09/25 05:46 VBG HCO3 31 mmol/L 03/09/25 05:46 VBG O2 Saturation 86.4 % 03/09/25 05:46 VBG Base Excess 5.3 mEq/L 03/09/25 05:46 Sodium 136 mmol/L (136-145) 03/10/25 08:06 Potassium 4.3 mmol/L (3.5-5.1) 03/10/25 08:06 Chloride 94 mmol/L (98-107) L 03/10/25 08:06 Carbon Dioxide 33 mmol/L (21-32) H 03/10/25 08:06 Anion Gap 9 (3-11) 03/10/25 08:06 BUN 17 mg/dl (6-23) 03/10/25 08:06 Creatinine 0.91 mg/dl (0.6-1.2) 03/10/25 08:06 Est Cr Clr Drug Dosing 74.8 ml/min 03/10/25 08:06 eGFR 80.28 03/10/25 08:06 BUN/Creatinine Ratio 18.7 (10-20) 03/10/25 08:06 Glucose 103 mg/dl (70-99(Fasting)) H 03/10/25 08:06 Lactate 1.1 mmol/L (0.4-2.0) 02/27/25 00:10 Calcium 8.6 mg/dl (8.6-10.3) 03/10/25 08:06 Phosphorus 3.5 mg/dl (2.5-4.9) 03/10/25 08:06 Magnesium 2.4 mg/dl (1.7-2.4) 03/10/25 08:06 Total Bilirubin 0.6 mg/dl (0.2-1.0) 03/09/25 05:46 AST 23 U/L (13-39) 02/26/25 23:13 ALT 19 U/L (7-52) 02/26/25 23:13 Alkaline Phosphatase 199 U/L (34-104) H 02/26/25 23:13 Lactate Dehydrogenase 439 U/L (86-244) H 03/09/25 05:46 B-Natriuretic Peptide 17 pg/ml (0-100) 03/09/25 05:46 Total Protein 5.9 gm/dl (6.0-8.3) L 03/09/25 05:46 Albumin 2.9 gm/dl (3.4-5.0) L 03/09/25 05:46 Globulin 2.9 gm/dl (2.5-4.0) 02/26/25 23:13 Albumin/Globulin Ratio 1.2 (0.9-2) 02/26/25 23:13 Lipase 39 U/L (11-82) 02/26/25 23:13 Procalcitonin 11.10 ng/ml (0-0.5) H 03/06/25 05:04 Urine Color Red 03/09/25 Unknown Urine Appearance Turbid (Clear) A 03/09/25 Unknown Urine pH 6.0 (4.5-7.5) 03/09/25 Unknown Ur Specific [place] 1.019 (1.000-1.030) 03/09/25 Unknown Urine Protein 3+ (Negative) H 03/09/25 Unknown Urine Glucose (UA) Negative (Negative) 03/09/25 Unknown Urine Ketones Negative (Negative) 03/09/25 Unknown Urine Blood 3+ (Negative) H 03/09/25 Unknown Urine Nitrite Negative (Negative) 03/09/25 Unknown Urine Bilirubin 1+ (Negative) H 03/09/25 Unknown Urine Urobilinogen Negative (Negative) 03/09/25 Unknown Ur Leukocyte Esterase 2+ (Negative) H 03/09/25 Unknown Urine WBC (Auto) 21-50 /hpf (0-5) H 03/09/25 Unknown Urine RBC (Auto) >20 /hpf (0-2) H 03/09/25 Unknown U Hyaline Cast (Auto) 0-2 /lpf (0-2) 03/09/25 Unknown U Epithel Cells (Auto) 3-5 /hpf (0-2) H 03/09/25 Unknown Urine Bacteria (Auto) None Seen (None Seen) 03/09/25 Unknown Urine RBC >20 /hpf (0-2) H 02/27/25 01:00 Urine WBC >50 /hpf (0-5) H 02/27/25 01:00 Ur Epithelial Cells 0-2 /hpf (0-2) 02/27/25 01:00 Urine Bacteria None Seen (None Seen) 02/27/25 01:00 Urine Mucus Present (None Prsent) A 03/09/25 Unknown Urine Yeast Present (None Prsent) A 02/27/25 01:00 Urine Comment 03/09/25 Unknown Fluid Neutrophils % 80 % 03/09/25 Unknown Fluid Lymphocytes % 8 % 03/09/25 Unknown Fluid Meso/Macro/Yell % 12 % 03/09/25 Unknown Fluid Slide Review 03/09/25 Unknown Fluid Comment 03/09/25 Unknown Pleural Fluid Source Right Lung 03/09/25 Unknown Pleural Color Janice 03/09/25 Unknown Pleural Appearance Hazy 03/09/25 Unknown Pleural pH 7.46 (7.3-7.4) H 03/09/25 Unknown Pleural WBC (Auto) 2469 /uL 03/09/25 Unknown Pleural RBC (Auto) 89798 /uL 03/09/25 Unknown Pleural Total Protein < 3.0 gm/dl 03/09/25 Unknown Pleural LDH 294 U/L 03/09/25 Unknown Pleural LDH Cancelled 03/09/25 Unknown Pleural Glucose 114 mg/dl 03/09/25 Unknown Pleural Amylase 10 U/L 03/09/25 Unknown Nasal Screen MRSA (PCR) Positive (Negative) A 03/05/25 16:35 Random Vancomycin 18.5 mcg/ml (10-20) 03/10/25 08:06 Adenovirus (PCR) Not Detected (NotDetected) 03/05/25 Unknown B. pertussis DNA (PCR) Not Detected (NotDetected) 03/05/25 Unknown B.parapertussis DNA PCR Not Detected (NotDetected) 03/05/25 Unknown C. pneumoniae DNA (PCR) Not Detected (NotDetected) 03/05/25 Unknown Coronavirus OC43 (PCR) Not Detected (NotDetected) 03/05/25 Unknown Coronavirus HKU1 (PCR) Not Detected (NotDetected) 03/05/25 Unknown Coronavirus 229E (PCR) Not Detected (NotDetected) 03/05/25 Unknown SARS-CoV-2 (PCR) Not Detected (NotDetected) 03/05/25 Unknown Coronavirus NL63 (PCR) Not Detected (NotDetected) 03/05/25 Unknown Human Metapneumovir PCR Not Detected (NotDetected) 03/05/25 Unknown Influenza Type A (PCR) Not Detected (NotDetected) 03/05/25 Unknown Influenza Type B (PCR) Not Detected (NotDetected) 03/05/25 Unknown M. pneumoniae (PCR) Not Detected (NotDetected) 03/05/25 Unknown Parainfluenza 1 (PCR) Not Detected (NotDetected) 03/05/25 Unknown Parainfluenza 2 (PCR) Not Detected (NotDetected) 03/05/25 Unknown Parainfluenza 3 (PCR) Not Detected (NotDetected) 03/05/25 Unknown Parainfluenza 4 (PCR) Not Detected (NotDetected) 03/05/25 Unknown RSV (PCR) Not Detected (NotDetected) 03/05/25 Unknown Entero/Rhino (PCR) Not Detected (NotDetected) 03/05/25 Unknown Blood Type A Positive 03/07/25 07:00 Antibody Screen NEGATIVE 03/07/25 07:00 Crossmatch See Detail 03/07/25 07:00 Impressions Abdomen Fluoroscopy 02/28/25 00:00 FL KUB CLINICAL HISTORY: LEFT STENT PLACEMENT COMPARISON STUDY: None FLUOROSCOPY TIME: 5 seconds FLUOROSCOPY IMAGES: 4 EXPOSURE DOSE: 1 mGy FINDINGS: Fluoroscopy was provided for urologic procedure. IMPRESSION: Intraoperative fluoroscopy. ACT 112: Negative or not required by law. Electronically signed by: Ricardo Green M.D. 03/01/2025 8:[address] 03/05/25 13:23 CT chest diagnostic wo con CT DOSE: 443.65 mGy.cm CLINICAL HISTORY: Pna under Rx, now w/ increasing O2 need. TECHNIQUE: Multiaxial CT images of the chest were performed without contrast. A dose lowering technique was utilized adhering to the principles of ALARA. COMPARISON STUDY: 02/02/2025 FINDINGS: There are bilateral pleural effusions, moderate on the right small on the left, increased. There is increased bandlike and patchy consolidation in the lower lung lobes, right greater than left. There is increased scattered patchy groundglass opacity in the upper lobes, left greater than right. No pneumothorax seen. No enlarged adenopathy. The esophagus is fluid-filled and mildly dilated. Represent reflux or reduced esophageal motility. No pericardial effusion. Masses at the upper liver are grossly stable. No acute osseous finding seen. IMPRESSION: Increased pneumonia and increased pleural effusions. ACT 112: Negative or not required by law. Electronically signed by: Ricardo Green M.D. 03/05/2025 3:09 PM KUB X-Ray 03/07/25 14:16 EXAM: Radiograph of the Abdomen 1 View INDICATION: Pain TECHNIQUE: Frontal supine view of the abdomen/pelvis. COMPARISON: CT 03/02/2025 FINDINGS: Limitations: None. Lower thorax: Small right pleural effusion and bilateral basilar airspace consolidation noted. Gastrointestinal tract: Relatively little bowel gas noted. Organs: Visualized organ shadows appear grossly normal. Bones/joints: No fracture, erosion or dislocation. Soft tissues: No abnormality noted. No radiopaque foreign body noted. Tubes, lines and devices: Inferior vena cava filter and bilateral ureteral stents in good position and unchanged. IMPRESSION: 1. Nonspecific relatively gasless abdomen. Consider follow-up CT. 2. Right pleural effusion and bilateral basilar airspace consolidation noted. ACT 112: N/A Electronically signed by Eufemia Swann 03-07-2025 5:17 PM Thoracentesis/Paracentesis US 03/09/25 00:00 ULTRASOUND-GUIDED RIGHT THORACENTESIS CLINICAL HISTORY: Right pleural effusion PROCEDURE: Procedure and risks were explained. Informed consent was obtained. A final timeout was completed. The right posterior thorax was prepped and draped in sterile fashion. 1% lidocaine was utilized for skin anesthesia. Utilizing ultrasound guidance, a 5 [place] safety centesis catheter was advanced into the right pleural effusion. Ultrasound images were obtained. A total of 500 mL of pleural fluid was removed and sent to the lab. The catheter was removed and Band-Aid applied. The patient tolerated the procedure well. A chest x-ray will be obtained and vital signs will be monitored postprocedure. IMPRESSION: Ultrasound-guided right thoracentesis as above. Performed, dictated, and signed by Zeferino Hayward PA-C; to be co-signed by Dr. Flip Jose. Electronically signed by: Flip Jose M.D. 03/09/2025 3:53 PM Chest X-Ray 03/09/25 12:51 XR chest 1V not portable HISTORY: 44 years-old Female s/p rt thora status post thoracentesis COMPARISON: Chest radiograph of same day at 5:35 AM TECHNIQUE: AP view of the chest FINDINGS: Hypoinflation. Cardiac silhouette is enlarged. Right IJ [id number] catheter in place. Mild linear bibasilar opacities suggestive of atelectasis. Small right pleural effusion has decreased in size from prior. No postprocedural pneumothorax identified. The bones of the chest appear grossly intact. Mild mid to lower thoracic levoscoliosis. IVC filter in place. IMPRESSION: No postprocedural pneumothorax identified. ACT 112: Negative or not required by law. The above report was generated using voice recognition software. It may contain grammatical, syntax or spelling errors. Electronically signed by: Jonn Li M.D. 03/09/2025 1:17 PM Abdomen/Pelvis CT 03/09/25 22:29 Exam(s): CT ABDOMEN + PELVIS Without Contrast EXAM: CT Abdomen and Pelvis Without Intravenous Contrast CLINICAL HISTORY: R flank pain, heparin. OTHER: Other Notes: R flank pain, heparin TECHNIQUE: Axial computed tomography images of the abdomen and pelvis without intravenous contrast. CTDI is 17.77 mGy and DLP is 892.4 mGy-cm. Automated exposure control was utilized for the study. A dose lowering technique was utilized adhering to the principles of ALARA. COMPARISON: CT abdomen and pelvis with contrast dated 03/02/2025 FINDINGS: Lung bases: No significant abnormality. No mass. No consolidation. Pleural space: The bilateral pleural effusions have decreased in size but remain. Mediastinum: Prominent fluid distention of the distal thoracic esophagus. Postsurgical changes of the gastroesophageal junction. ABDOMEN: Liver: The multiple lesions throughout the liver are not well demonstrated on this noncontrast examination. Gallbladder and bile ducts: The gallbladder is mildly distended. There is a solitary noncalcified gallstone noted in the gallbladder with surrounding slight hyperdense material. No ductal dilation. Pancreas: No significant abnormality. No ductal dilation. Spleen: Similar perisplenic fluid. Adrenals: No significant abnormality. No mass. Kidneys and ureters: Bilateral double-J ureteral stents remain in position. However, there is new [id number] right hydronephrosis and proximal right ureterectasis. Stomach and bowel: Evaluation of the bowel is limited without contrast. Similar diffuse fluid-filled small bowel. A right sided ileostomy is noted. Subtotal colectomy remains. Incidental duodenal diverticulum noted, similar to the previous exam. Postsurgical changes also noted along the greater curvature of the stomach consistent with previous gastric reduction surgery. PELVIS: Appendix: Surgically absent. Bladder: The bladder is unremarkable and is stable in appearance, mild- to-moderately distended. No stones. Reproductive: Status post hysterectomy. Subperitoneal space: Similar to minimally increased presacral edema. ABDOMEN and PELVIS: Intraperitoneal space: No significant abnormality. No free air. No significant fluid collection. Bones/joints: No acute fracture. No dislocation. Soft tissues: See above. Mild fat stranding noted along the lateral aspect of the pelvis bilaterally. Vasculature: An IVC filter is noted in position. No abdominal aortic aneurysm. Lymph nodes: No significant abnormality. No enlarged lymph nodes. IMPRESSION: 1. Bilateral double-J ureteral stents remain in position. However, there is new [id number] right hydronephrosis and proximal right ureterectasis. This finding raises the suspicion for potential developing occlusion or insufficiency of the right ureteral stent. However, no significant perinephric abnormality noted bilaterally. 2. Similar perisplenic fluid. 3. Prominent fluid distention of the distal thoracic esophagus. Postsurgical changes of the gastroesophageal junction. The clinical significance of this finding is indeterminate. 4. Additional findings previously identified, as noted above. Electronically signed by: Zeferino Umaña MD 03/09/25 23:15 PM (1) Abdominal pain Abdominal location: generalized Qualified Code(s): R10.84 - Generalized abdominal pain
--- NOTE | 2025-03-10 15:26 | Urology Progress Note ---
<Statement entered by Sheldon Norton MD - 03/10/25 16:03> Bilateral ureteral stents can certainly cause some hematuria. As long as she is voiding without significant clots, would continue to monitor and have her work on hydration. Hydronephrosis on CT scan could also be explained by the stents as there can be some backflow of urine. I agree with urine culture and narr owing coverage as results become available. No plan for additional surgical intervention at this time. Date of Service March 10, 2025 Assessment & Plan (1) Hematuria: Plan: Urology is recalled for evaluation of hematuria Patient is s/p bilateral ureteral stent placement (s/p Left ureteral stent 02/28; s/p right ureteral stent on 02/03) CT abdomen pelvis 03/09 shows bilateral ureteral stents in appropriate position, mild right hydronephrosis Hematuria can be expected with ureteral stents in place Urine culture is pending Blood cultures pending Continue broad spectrum antibiotics and follow cultures Okay to continue with heparin from urology standpoint No urologic intervention planned at this time Urology will sign off, please recall as needed Admission and Anticipated Discharge Date Admission Date: February 27, 2025 Subjective Urology recalled for evaluation of hematuria. Patient seen and examined at bedside. She reports hematuria and dysuria started yesterday. She reports right sided pain after her thoracentesis procedure yesterday. No flank pain at present. No fever or chills. She has had intermittent nausea and vomiting. Review of Systems Constitutional: as per Subjective / HPI Gastrointestinal: as per Subjective / HPI Genitourinary: as per Subjective / HPI Physical Exam Constitutional: no acute distress Respiratory: no respiratory distress and no labored breathing Gastrointestinal (Abdomen): Inspection/Auscultation: abdomen normal to inspection Musculoskeletal: Head/Neck/Chest: normocephalic Neurologic: moves all extremities and awake Psychiatric: Orientation: alert and oriented x 3 Genitourinary: Urine in hat is transparent hall red Results & Data Vital Signs (Past 12 Hours) Vital Signs Temp Pulse Pulse Pulse Resp BP Pulse Ox 03/10/25 14:53 36.4 C L 109 H 18 144/85 H 92 03/10/25 10:48 36.4 C L 101 H 16 141/88 H 90 03/10/25 08:11 03/10/25 08:10 117 H 03/10/25 07:22 36.8 C 101 H 18 131/90 96 O2 Del Method O2 Flow Rate 03/10/25 14:53 Nasal Cannula 3 03/10/25 10:48 Nasal Cannula 3 03/10/25 08:11 Nasal Cannula 3 03/10/25 08:10 03/10/25 07:22 Nasal Cannula 3 PG Care Time/CCT Total # of Minutes Spent Total Time Spent with Patient: Total time spent is greater than 50% in coordination of care (as documented) at patient's floor/unit and/or counseling patient: Coding Level of Care Code 16353 SUB INP/OBS CARE 05/02MIN Diagnoses Hematuria R31.9
--- NOTE | 2025-03-10 15:34 | Surgery Progress Note ---
Date of Service March 10, 2025 Assessment & Plan (1) Partial small bowel obstruction: Plan: Pt w/ metastatic ca here with nausea/vomiting and concern for partial SBO she remains with intermittent nausea/vomiting had hematuria and repeat CT scan overnight;from our perspective there was no mention of SBO but was without contrast so a limited study Her abdomen is soft and she continues to have + ostomy function she has been started on a trial of reglan if no urological procedures planned can resume liquid diet If continues with nausea/vomiting may have to reconsider a oral contrasted study for better evaluation of SBO but patient was unable to tolerate contrast in the past If anything obstruction at least partial as she is having + ostomy function No plans for surgical intervention here, if indicated would transfer back to [facility] [facility] where her oncologic surgery was She has multiple medical issues currently being managed at the moment Admission and Anticipated Discharge Date Admission Date: February 27, 2025 Subjective Patient reports intermittent n/v every 5-6 hours. Pain controlled currently. Ostomy is functioning. Physical Exam Physical Exam: awake, tired appearing Gastrointestinal (Abdomen): Inspection/Auscultation: abdomen not distended Percussion/Palpation: abdomen soft; abdomen nontender + ostomy with + stool Results & Data Vital Signs (Past 12 Hours) Vital Signs Temp Pulse Pulse Pulse Resp BP Pulse Ox 03/10/25 14:53 97.5 F L 109 H 18 144/85 H 92 03/10/25 10:48 97.5 F L 101 H 16 141/88 H 90 03/10/25 08:11 03/10/25 08:10 117 H 03/10/25 07:22 98.2 F 101 H 18 131/90 96 O2 Del Method O2 Flow Rate 03/10/25 14:53 Nasal Cannula 3 03/10/25 10:48 Nasal Cannula 3 03/10/25 08:11 Nasal Cannula 3 03/10/25 08:10 03/10/25 07:22 Nasal Cannula 3 PG Care Time/CCT Total # of Minutes Spent Total Time Spent with Patient: Total time spent is greater than 50% in coordination of care (as documented) at patient's floor/unit and/or counseling patient: Coding Level of Care Code 78206 SUB INP/OBS CARE 05/02MIN Diagnoses Partial small bowel obstruction K56.600
[2025-03-10] MEDS: REMOVE LIDODERM PATCH SCH (20:27)
[2025-03-10 21:58] LABS: ANTI-Xa, UFH(UnfractionatedHep 0.26 IU/ml (0.3-0.7)
[2025-03-11] MEDS: ACETAMINOPHEN 1,000 MG/100 ML VIAL IV PRN (00:09)
[2025-03-11 04:56] LABS: Hematocrit (blood only) 23.7 % (37.0-47.0); Hemoglobin 7.3 g/dL (12.0-16.0); Immature Granulocytes # (auto) 0.05 K/uL (0.01-0.20); Immature Granulocytes % (auto) 0.4 %; Mean Corpuscular Hemoglobin 25.6 pg (25.0-34.0); Mean Corpuscular Volume 83.2 fL (80.0-100.0); Platelet Count 151 K/uL (130-400); RDW Standard Deviation 58.3 fL (36.4-46.3); Red Blood Count 2.85 M/uL (4.20-5.40); White Blood Count 11.82 K/ul (4.8-10.8)
[2025-03-11 05:12] LABS: Alanine Aminotransferase 10.0 U/L (7-52); Albumin Globulin Ratio 0.9 (0.9-2); Albumin Level 2.8 gm/dl (3.4-5.0); Alkaline Phosphatase 223.0 U/L (34-104); Anion Gap 8.0 (3-11); Bilirubin,Total 0.4 mg/dl (0.2-1.0); Blood Urea Nitrogen 19.0 mg/dl (6-23); Calcium 8.1 mg/dl (8.6-10.3); Carbon Dioxide 32.0 mmol/L (21-32); Chloride 94.0 mmol/L (98-107); Creatinine Clr Calc Pharmacy 71.2 ml/min; Globulin 3.0 gm/dl (2.5-4.0); Glucose 92.0 mg/dl (70-99(Fasting)); Magnesium 1.9 mg/dl (1.7-2.4); Potassium 4.0 mmol/L (3.5-5.1); Sodium 134.0 mmol/L (136-145); Total Protein 5.8 gm/dl (6.0-8.3)
[2025-03-11 05:17] LABS: Polychromasia 1+
[2025-03-11 05:18] LABS: ANTI-Xa, UFH(UnfractionatedHep 0.36 IU/ml (0.3-0.7)
[2025-03-11] MEDS: THIAMINE HCL 100 MG TAB PO SCH (08:51)
[2025-03-11] MEDS: FOLIC ACID 1 MG TAB PO SCH (09:04)
[2025-03-11] MEDS ORDERED: SODIUM CHLORIDE 0.9% 100 ML IV PRN (09:32)
--- NOTE | 2025-03-11 09:35 | Surgery Progress Note ---
<Statement entered by Dominic Pagan MD - 03/11/25 12:57> I independently saw and examined the patient, and I agree with the assessment and plan of care. Date of Service March 11, 2025 Assessment & Plan (1) Partial small bowel obstruction: Plan: Pt w/ metastatic ca here with nausea/vomiting and concern for partial SBO she remains with intermittent nausea/vomiting, but does feel improved so far today unfortunately not too much to add from surgical standpoint. we did briefly review a venting peg tube with her, but she does not want to pursue this at this time would continue with fulls/protein rich meals as able and slowly continue to tolerate as able She will likely benefit from a PPN/TPN while she is not getting enough in calorically orally Would send home on reglan which may seem like its working for her If anything obstruction at least partial as she is having + ostomy function No plans for surgical intervention here, if indicated would transfer back to [place] where her oncologic surgery was We will follow from the periphery at this point but please call with any questions/concerns Admission and Anticipated Discharge Date Admission Date: February 27, 2025 Subjective Patient reports intermittent n/v but that she does feel better today. currently tolerating protein jello. reports + ostomy output. Physical Exam Physical Exam: awake, tired appearing Gastrointestinal (Abdomen): Inspection/Auscultation: abdomen not distended Percussion/Palpation: abdomen soft; abdomen nontender + ostomy,no stool currently in bag Results & Data Vital Signs (Past 12 Hours) Vital Signs Temp Pulse Pulse Pulse Resp BP Pulse Ox 03/11/25 07:16 109 H 03/11/25 07:00 97.9 F 107 H 20 138/88 99 03/11/25 03:10 98.4 F 106 H 18 121/90 99 03/10/25 23:43 98.6 F 104 H 18 128/93 97 03/10/25 22:00 102 H O2 Del Method O2 Flow Rate 03/11/25 07:16 03/11/25 07:00 Nasal Cannula 2 03/11/25 03:10 Nasal Cannula 2 03/10/25 23:43 Nasal Cannula 3 03/10/25 22:00 PG Care Time/CCT Total # of Minutes Spent Total Time Spent with Patient: Total time spent is greater than 50% in coordination of care (as documented) at patient's floor/unit and/or counseling patient: Coding Level of Care Code 27892 SUB INP/OBS CARE 05/02MIN Diagnoses Partial small bowel obstruction K56.600
--- NOTE | 2025-03-11 10:26 | Communication Note ---
Date of Service: March 10, 2025 Late Entry Note Pall med Pt unavailable at time of my visit We will revisit tomorrow NPO status noted, now back to trying clears and Gelatein Recc TPN/PPN trial -her malnutrition with escalate given overall poor PO tolerance and refractory n/v which has been extremely hard to manage Thank you for allowing us to participate in the ongoing care of this patient. Please page with any additional concerns. Mikaela Hurst DNP Director, Palliative Medicine
--- NOTE | 2025-03-11 14:41 | Hospitalist Progress Note ---
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 difficile s/p treatment, anxiety and depression, iron deficiency anemia presents with abdominal pain. Patient is having ongoing pain for several weeks now. This is her third admission since last 1 month. Patient is status post right ureteral stent on and supposed to follow-up outpatient for stent removal. She was on Bactrim and amoxicillin for postop hepatic abscess, says no longer on antibiotics. She was again admitted 06 of February for small bowel obstruction and was discharged on 02/08/2025. Patient is followed with palliative care. Currently on p.o. Dilaudid 4 mg every 3 hours as needed for pain. Patient says Dilaudid is causing her nauseous. States abdominal pain is not getting better. She is having a lot of nausea and vomiting. She says not eating because of nausea. She is being managed for the following: Partial SBO: Patient presents with abdominal pain and persistent nausea and vomiting with decreased p.o. intake. Metastatic colon cancer Patient presents with abdominal pain, nausea, vomiting, decreased p.o. intake. Status post EGD 03/02: Impression Normal duodenum, a sleeve gastrectomy was found with healthy-appearing mucosa, erythematous mucosa in the stomach biopsies, LA grade D reflux esophagitis with bleeding biopsies, in light of large amount of retained fluid in the stomach and esophagus at least some degree of partial obstruction motility is suspected likely related to overall tumor burden Pathology report reports of stomach biopsy, esophagus biopsy came back to be negative for any malignancy Pt reports better control of N, V. Is tolerating full liq now. Continue on Compazine, Zofran and Phenergan as needed for nausea/vomiting. General surgery on board, recs are full liq diet and reglan Continue with PPI. and multivitamins with minerals, IV thiamine, IV folic acid. Remains weak and lethargic with ongoing nausea and vomiting at times Minimal abdominal pain since last night Remains medically stablesurgery service signed off Remains weak and lethargic and awaiting PT and OT evaluation Was advised to keep appointments/make appointments with her oncologist and surgery team at [facility] as soon as possible Anemia s/p EGD - see above, c/w iv ppi. s/p 1 unit PRBC. Monitor HnH Hemoglobin dropped to 7.3 and the patient remains generally weak and lethargic No evidence of acute blood loss Will give another unit of PRBC for ongoing symptoms of anemia Per prior attending: Patient's surgical oncologist Dr. Johnson reached out on March 01, 2025. I provided update on patient's current condition. He reports that unfortunately patient does have recurrence of colon cancer given elevated tumor markers. The initial plan was reversal of the colostomy- which will be kept on hold for the time being as it will delay patient to obtain chemotherapy. He also asked me to discuss with patient if she wants to follow- up with local oncology for chemotherapy. I updated the patient about my discussion with her surgical oncologist on March 02, 2025; she verbalized understanding. She wants to follow-up at [facility] oncology. She reports that PET/CT is still not done yet; would like to follow-up with them to have it done. Acute UTI/ Possible right pyelonephritis Abdominal pain, hydroureteronephrosis Status post CTAP with IV contrast 03/02: Noted multifocal pneumonia in the lung bases bilaterally. Noted small bowel obstruction. Noted findings concerning for possible right pyelonephritis. Of note, patient recently presented with right-sided abdominal pain status post right ureteral stent placement February 03, 2025 with improvement in the pain. Admitting CTAP with mild left-sided hydronephroureterosis Patient underwent cystoscopy with left ureteral stent placement February 08, 2025, reports improvement in her left abdominal pain. Urine culture grew Salma multiple times, given recent ureteral procedure; pt started on fluconazole for candiduria. s/p 8 d fluconazole, stopped 03/08. Appreciate ID eval. QTc 03/08 - 443 Pt now with hematuria, UCx has been sent, if Hematuria continues will likely recall uro. Has had hematuria with increasing pain last night and CT scan did show questionable stent obstruction with new hydronephrosis Hematuria seems to be improving as of this morning Patient remains n.p.o. and for further evaluation by the urologist today urine culture was sent and started on intravenous ertapenem Multifocal pneumonia: Concern for mutlifocal pna on lung bases noted on 03/02 CTAP with IV contrast. 03/05 CT chest w/ increasing pneumonia and increased pleural effusion. MRSA +ve. Sp Cx +ve for MRSA. Pulm consulted, appreciate recs. ID evaled 03/08, recs vanc for 7 days and if being dc'd consider po linezolid to complete. s/p rt thoracentesis - 500 ml out, f/u fluid studies, cx and pathology reports. Parapneumonic effusionadvised to continue antibiotic for longer duration as per the key operator Pleural fluid cytology came back positive for metastatic adenocarcinoma of colonresidual carcinoma in the block was sent to [employer] panel and that report will be available later Will give linezolid to complete the course of 14 days in total on discharge . History of PE: On Eliquis- resumed after EGD, now on hep drip as pt not able to take po. Anxiety and depression: On Lexapro, BuSpar and Ativan as needed. c/w as able. GERD: on protonix-continue DVT prophylaxis: On Heparin drip Disposition: pcu/tele floor Full code. Please note the above document was generated using voice recognition software. It may contain grammatical, syntax or spelling errors. Any formal questions or concerns about the content, text or information contained within the body of this dictation should be directly addressed to the provider for clarification Admission and Anticipated Discharge Date Admission Date: February 27, 2025 Subjective 03/10/2025 The patient was seen and examined in telemetry unit She has been complaining of nausea and occasional vomiting Also increasing pain in the thoracentesis site on the right chest wall Denies any shortness of breath at rest but has been requiring 3 L to maintain saturation 03/11/2025 The patient was seen and examined in telemetry unit She remains weak and lethargic Complains of minimal pain, nausea and vomiting at times Has been tolerating current diet Awaiting PT and OT evaluation Review of Systems Review of Systems: All systems reviewed and are unremarkable except as noted below Physical Exam Physical Exam: Lying in bed without any acute distress Constitutional: + ill appearing and average body habitus Eyes: PERRL, conjunctivae normal, anicteric sclerae ENMT: external ear and nose normal, oropharynx normal Neck: trachea midline, no thyromegaly Respiratory: + respiratory distress ( minimal respira tory distress at rest) Auscultation: + diminished lung sounds ( right base mainly with occasional crackles) Cardiovascular: Rate/Rhythm: regular rate, regular rhythm and + tachycardic Heart Sounds: normal S1 and normal S2; no murmur Extremities: no edema Gastrointestinal (Abdomen): Inspection/Auscultation: normal bowel sounds; abdomen not distended Percussion/Palpation: + abdomen tender and abdomen soft Neurologic: normal touch/pain/proprioception and moves all extremities; no focal motor deficits Lymphatic: no cervical or axillary lymphadenopathy Results & Data Results & Data Vital Signs (Past 12 Hours) Vital Signs Temp Pulse Pulse Pulse Resp BP BP 03/11/25 13:44 112 H 03/11/25 13:04 36.9 C 115 H 18 142/100 H 03/11/25 13:00 37.0 C 107 H 18 130/92 03/11/25 12:45 36.8 C 109 H 16 131/88 03/11/25 12:37 03/11/25 12:28 37.0 C 103 H 133/91 03/11/25 11:43 36.9 C 110 H 18 140/96 03/11/25 07:16 109 H 03/11/25 07:00 36.6 C 107 H 20 138/88 03/11/25 03:10 36.9 C 106 H 18 121/90 Pulse Ox O2 Del Method O2 Flow Rate 03/11/25 13:44 03/11/25 13:04 97 Nasal Cannula 2 03/11/25 13:00 97 2 03/11/25 12:45 95 2 03/11/25 12:37 Nasal Cannula 2 03/11/25 12:28 96 2 03/11/25 11:43 97 Nasal Cannula 2 03/11/25 07:16 03/11/25 07:00 99 Nasal Cannula 2 03/11/25 03:10 99 Nasal Cannula 2 Laboratory Results Short CBC 03/11/25 Range/Units 04:01 WBC 11.82 H (4.8-10.8) K/ul Hgb 7.3 L (12.0-16.0) g/dL Hct 23.7 L (37.0-47.0) % Plt Count 151 (130-400) K/uL BMP 03/11/25 04:01 Sodium 134 L Potassium 4.0 Chloride 94 L Carbon Dioxide 32 BUN 19 Creatinine 0.94 Glucose 92 Calcium 8.1 L Liver Function 03/11/25 Range/Units 04:01 Total Bilirubin 0.4 (0.2-1.0) mg/dl AST 21 (13-39) U/L ALT 10 (7-52) U/L Alkaline Phosphatase 223 H (34-104) U/L Albumin 2.8 L (3.4-5.0) gm/dl Medications Administered Current Inpatient Medications Al Hydrox/Mg Hydrox/Simethicone (Aluminum/Magnesium/Simeth (Maalox Max) 30 Ml Udc) 15 ml PO Q6H PRN PRN Reason: Indigestion Stop: 04/07/25 14:48 Last Admin: 03/09/25 23:06 Dose: 15 ml Albuterol (Albut/Ipratrop 3mg/0.5mg Neb 3 Ml Vial) 3 ml NEB Q6R PRN; Protocol PRN Reason: sob, wheezing Stop: 04/04/25 18:59 Apixaban (Apixaban 5 Mg Tablet) 5 mg PO BID [place] Stop: 03/29/25 08:59 Last Admin: 03/02/25 10:18 Dose: Not Given Benzonatate (Benzonatate 100 Mg Capsule) 100 mg PO TID PRN PRN Reason: Cough Stop: 04/08/25 02:05 Last Admin: 03/09/25 02:36 Dose: 100 mg Buspirone HCl (Buspirone 5 Mg Tab) 10 mg PO BID [place] Stop: 03/29/25 08:59 Last Admin: 03/11/25 09:04 Dose: 10 mg Diphenhydramine HCl (Diphenhydramine 50 Mg/Ml Vial) 25 mg IV Q12@0930,2130 [place] Stop: 03/12/25 23:59 Last Admin: 03/11/25 09:03 Dose: 25 mg Escitalopram Oxalate (Escitalopram Oxalate 20 Mg Tab) 20 mg PO DAILY [place] Stop: 03/29/25 08:59 Last Admin: 03/11/25 09:04 Dose: 20 mg Famotidine (Famotidine 20 Mg Tab) 20 mg PO BID [place] Stop: 03/29/25 08:59 Last Admin: 03/11/25 09:03 Dose: 20 mg Fentanyl (Fentanyl 25 Mcg/Hr Tdsy) 1 patch TD Q3D [place] Stop: 03/19/25 13:59 Last Admin: 03/11/25 09:02 Dose: 1 patch Fentanyl (Fentanyl 12 Mcg/Hr Tdsy) 1 patch TD Q3D [facility] Stop: 03/22/25 09:59 Last Admin: 03/11/25 09:02 Dose: 1 patch Folic Acid (Folic Acid 1 Mg Tab) 1 mg PO QAM [facility] Stop: 04/10/25 08:59 Last Admin: 03/11/25 09:04 Dose: 1 mg Heparin Sodium (Porcine) (Heparin 100 Unit/Ml 5ml Flush) 5 ml FLUSH PRN PRN PRN Reason: Flush Stop: 03/30/25 18:43 Hydromorphone HCl (Hydromorphone Hcl 2 Mg Tab) 4 mg PO Q4H PRN PRN Reason: pain Stop: 03/13/25 10:27 Last Admin: 03/11/25 03:57 Dose: 4 mg Hydromorphone HCl (Hydromorphone Inj 0.5 Mg/0.5 Ml Syr) 0.5 mg IV Q3H PRN PRN Reason: Pain Stop: 03/16/25 08:23 Last Admin: 03/11/25 09:01 Dose: 0.5 mg Promethazine HCl (Phenergan) 12.5 mg in 50.5 mls @ 202 mls/hr IV Q6H PRN PRN Reason: Nausea And Vomiting Stop: 03/29/25 07:35 Last Infusion: 03/07/25 23:16 Dose: Infused Prochlorperazine 5 mg/ Syringe 5 mls @ 5 mls/min IV Q6H PRN PRN Reason: Nausea And Vomiting Stop: 03/29/25 07:35 Last Admin: 03/10/25 18:15 Dose: 5 mls/min Lorazepam 0.5 mg/ Syringe 0.5 mls @ 2 mls/min IV Q8H PRN PRN Reason: Anxiety/Agitation Stop: 04/01/25 00:19 Last Admin: 03/09/25 13:41 Dose: 2 mls/min Pantoprazole Sodium (Protonix) 40 mg in 10 mls @ 5 mls/min IV BID [place] Stop: 04/01/25 20:59 Last Admin: 03/11/25 09:05 Dose: 5 mls/min Heparin Sodium/Dextrose (Heparin 83520 Unit/500 Ml D5w) 25,000 units in 500 mls @ 27 mls/hr IV .[id number] [place]; Protocol Stop: 04/02/25 15:44 Last Titration: 03/11/25 07:12 Dose: 1,350 units/hr, 27 mls/hr Vancomycin HCl (Vancomycin Hcl / Nss) 1,000 mg in 270 mls @ 90 mls/hr IV Q12H [facility] Stop: 03/13/25 09:59 Last Infusion: 03/11/25 13:30 Dose: Infused Ertapenem (Invanz 1000mg) 1,000 mg in 10 mls @ 2 mls/min IV Q24H [place] Stop: 03/19/25 20:59 Last Admin: 03/10/25 20:20 Dose: 2 mls/min Acetaminophen (Ofirmev) 1,000 mg in 100 mls @ 400 mls/hr IV Q8H PRN PRN Reason: pain/fever Stop: 03/13/25 23:50 Last Infusion: 03/11/25 00:32 Dose: Infused Sodium Chloride (Nss) 100 mls @ 15 mls/hr IV .Q6H40M PRN PRN Reason: For Transfusion Duration Stop: 03/11/25 17:35 Lidocaine (Lidocaine 5% 1 Patch) 1 patch TD QAM [facility] Stop: 04/09/25 09:14 Last Admin: 03/11/25 08:50 Dose: Not Given Lorazepam (Lorazepam 0.5 Mg Tab) 0.5 mg PO TID PRN PRN Reason: Anxiety Stop: 03/29/25 04:59 Last Admin: 03/11/25 00:15 Dose: 0.5 mg Methocarbamol (Methocarbamol 500 Mg Tablet) 500 mg PO TID PRN PRN Reason: spasm Stop: 04/03/25 04:12 Last Admin: 03/09/25 20:29 Dose: 500 mg Metoclopramide HCl (Metoclopramide Hcl 5 Mg Tablet) 5 mg PO TID [facility] Stop: 03/11/25 20:59 Last Admin: 03/11/25 13:37 Dose: 5 mg Miscellaneous (Fentanyl Patch Remove & Waste) 1 each N/A Q3D [facility] Stop: 04/04/25 13:59 Last Admin: 03/11/25 09:02 Dose: 1 each Miscellaneous (Check Fentanyl Patch Placement) 1 each N/A QS [facility] Stop: 04/04/25 15:59 Last Admin: 03/11/25 09:04 Dose: 1 each Miscellaneous (Fentanyl Patch Remove & Waste) 1 each N/A Q3D [facility] Stop: 04/07/25 09:58 Last Admin: 03/11/25 09:02 Dose: 1 each Miscellaneous (Check Fentanyl Patch Placement) 1 each N/A QS [facility] Stop: 04/07/25 15:59 Last Admin: 03/11/25 09:04 Dose: 1 each Miscellaneous (Remove Lidoderm Patch) 1 each N/A DAILY@2100 [facility] Stop: 04/09/25 20:59 Last Admin: 03/10/25 20:27 Dose: 1 each Miscellaneous Information (Vancomycin Consult Active) 1 each N/A UD PRN PRN Reason: Consult Stop: 03/13/25 09:59 Multivitamins/Minerals (Cerovite Adv Formula Tab) 1 tab PO QAM [facility] Stop: 04/03/25 08:59 Last Admin: 03/11/25 08:51 Dose: Not Given Ondansetron HCl (Ondansetron Inj 2 Mg/Ml 2 Ml Vial) 4 mg IV Q6H PRN PRN Reason: Nausea Stop: 03/29/25 04:59 Last Admin: 03/11/25 09:03 Dose: 4 mg Phenol (Chloraseptic (Phenol) 1.4% Soln 180 Ml Btl) 2 sprays MT Q6H PRN PRN Reason: throat pain Stop: 03/31/25 09:26 Last Admin: 03/01/25 12:33 Dose: 2 sprays Pregabalin (Pregabalin 50 Mg Cap) 50 mg PO BID [facility] Stop: 03/29/25 08:59 Last Admin: 03/11/25 09:03 Dose: 50 mg Sucralfate (Sucralfate 1 Gm Tab) 1 gm PO QID [facility] Stop: 04/04/25 16:59 Last Admin: 03/11/25 13:36 Dose: 1 gm Thiamine HCl (Thiamine Hcl 100 Mg Tab) 200 mg PO DAILY [facility] Stop: 04/10/25 08:59 Last Admin: 03/11/25 08:51 Dose: Not Given (1) Abdominal pain Abdominal location: generalized Qualified Code(s): R10.84 - Generalized abdominal pain
--- NOTE | 2025-03-11 14:54 | Palliative Care Progress Note ---
Date of Service March 11, 2025 Assessment & Plan (1) Cancer related pain: Plan: Deanna is doing better on this regimen of TDF for pain mgt. No changes today. (2) Abdominal pain: Plan: See #1 above (3) Nausea & vomiting: Plan: Pt reports improved today, tolerating liquid diet, advancing slowly encouraged Gelatein for nutritional optimization. (4) Palliative care by specialist: Plan: PET scheduled for 03/31 at 1130am, Palliative care will continue to follow for ongoing symptom mgmt and patient support. (5) Adenocarcinoma, colon: Plan As above Continue TDF no change to dose Thank you for allowing us to participate in the ongoing care of this patient. Please page with any additional concerns. Admission and Anticipated Discharge Date Admission Date: February 27, 2025 Subjective Pt assessed at bedside, she shared pain well managed and her nausea is improved. NAEON. SHEEHAN. Review of Systems Review of Systems: All systems reviewed & are unremarkable except as noted in Subjective Physical Exam Constitutional: WD/WN, vitals as above Eyes: PERRL, conjunctivae normal, anicteric sclerae Respiratory: normal respiratory effort, lungs clear to auscultation Cardiovascular: RRR, no murmur, no edema Skin: no rashes, warm and dry Psychiatric: A+Ox3, euthymic affect Results & Data Vital Signs (Past 12 Hours) Vital Signs Temp Pulse Pulse Pulse Resp BP BP 03/11/25 13:44 112 H 03/11/25 13:04 36.9 C 115 H 18 142/100 H 03/11/25 13:00 37.0 C 107 H 18 130/92 03/11/25 12:45 36.8 C 109 H 16 131/88 03/11/25 12:37 03/11/25 12:28 37.0 C 103 H 133/91 03/11/25 11:43 36.9 C 110 H 18 140/96 03/11/25 07:16 109 H 03/11/25 07:00 36.6 C 107 H 20 138/88 03/11/25 03:10 36.9 C 106 H 18 121/90 Pulse Ox O2 Del Method O2 Flow Rate 03/11/25 13:44 03/11/25 13:04 97 Nasal Cannula 2 03/11/25 13:00 97 2 03/11/25 12:45 95 2 03/11/25 12:37 Nasal Cannula 2 03/11/25 12:28 96 2 03/11/25 11:43 97 Nasal Cannula 2 03/11/25 07:16 03/11/25 07:00 99 Nasal Cannula 2 03/11/25 03:10 99 Nasal Cannula 2 Laboratory Results Abnormal lab results 03/10/25 03/10/25 03/10/25 Range/Units 08:22 20:36 21:20 WBC (4.8-10.8) K/ul RBC (4.20-5.40) M/uL Hgb (12.0-16.0) g/dL Hct (37.0-47.0) % MCHC (32.0-36.0) g/dL RDW Std Deviation (36.4-46.3) fL RDW Coeff of Mita (11.5-14.5) % Neut # (Auto) (1.40-6.50) K/uL [place] # (Auto) (0.11-0.59) K/uL Heparin Anti-Xa, Unfract 0.26 L (0.3-0.7) IU/ml Sodium (136-145) mmol/L Chloride (98-107) mmol/L BUN/Creatinine Ratio (10-20) POC Glucose 107 H (70-99) mg/dl Calcium (8.6-10.3) mg/dl Alkaline Phosphatase (34-104) U/L Total Protein (6.0-8.3) gm/dl Albumin (3.4-5.0) gm/dl Crossmatch See Detail 03/11/25 Range/Units 04:01 WBC 11.82 H (4.8-10.8) K/ul RBC 2.85 L (4.20-5.40) M/uL Hgb 7.3 L (12.0-16.0) g/dL Hct 23.7 L (37.0-47.0) % MCHC 30.8 L (32.0-36.0) g/dL RDW Std Deviation 58.3 H (36.4-46.3) fL RDW Coeff of Mita 19.3 H (11.5-14.5) % Neut # (Auto) 8.98 H (1.40-6.50) K/uL [place] # (Auto) 1.05 H (0.11-0.59) K/uL Heparin Anti-Xa, Unfract (0.3-0.7) IU/ml Sodium 134 L (136-145) mmol/L Chloride 94 L (98-107) mmol/L BUN/Creatinine Ratio 20.2 H (10-20) POC Glucose (70-99) mg/dl Calcium 8.1 L (8.6-10.3) mg/dl Alkaline Phosphatase 223 H (34-104) U/L Total Protein 5.8 L (6.0-8.3) gm/dl Albumin 2.8 L (3.4-5.0) gm/dl Crossmatch Diagnostic Findings Abdomen Fluoroscopy 02/28/25 00:00 FL KUB CLINICAL HISTORY: LEFT STENT PLACEMENT COMPARISON STUDY: None FLUOROSCOPY TIME: 5 seconds FLUOROSCOPY IMAGES: 4 EXPOSURE DOSE: 1 mGy FINDINGS: Fluoroscopy was provided for urologic procedure. IMPRESSION: Intraoperative fluoroscopy. ACT 112: Negative or not required by law. Electronically signed by: Ricardo Green M.D. 03/01/2025 8:[address] 03/05/25 13:23 CT chest diagnostic wo con CT DOSE: 443.65 mGy.cm CLINICAL HISTORY: Pna under Rx, now w/ increasing O2 need. TECHNIQUE: Multiaxial CT images of the chest were performed without contrast. A dose lowering technique was utilized adhering to the principles of ALARA. COMPARISON STUDY: 02/02/2025 FINDINGS: There are bilateral pleural effusions, moderate on the right small on the left, increased. There is increased bandlike and patchy consolidation in the lower lung lobes, right greater than left. There is increased scattered patchy groundglass opacity in the upper lobes, left greater than right. No pneumothorax seen. No enlarged adenopathy. The esophagus is fluid-filled and mildly dilated. Represent reflux or reduced esophageal motility. No pericardial effusion. Masses at the upper liver are grossly stable. No acute osseous finding seen. IMPRESSION: Increased pneumonia and increased pleural effusions. ACT 112: Negative or not required by law. Electronically signed by: Ricardo Green M.D. 03/05/2025 3:09 PM KUB X-Ray 03/07/25 14:16 EXAM: Radiograph of the Abdomen 1 View INDICATION: Pain TECHNIQUE: Frontal supine view of the abdomen/pelvis. COMPARISON: CT 03/02/2025 FINDINGS: Limitations: None. Lower thorax: Small right pleural effusion and bilateral basilar airspace consolidation noted. Gastrointestinal tract: Relatively little bowel gas noted. Organs: Visualized organ shadows appear grossly normal. Bones/joints: No fracture, erosion or dislocation. Soft tissues: No abnormality noted. No radiopaque foreign body noted. Tubes, lines and devices: Inferior vena cava filter and bilateral ureteral stents in good position and unchanged. IMPRESSION: 1. Nonspecific relatively gasless abdomen. Consider follow-up CT. 2. Right pleural effusion and bilateral basilar airspace consolidation noted. ACT 112: N/A Electronically signed by Eufemia Swann 03-07-2025 5:17 PM Thoracentesis/Paracentesis US 03/09/25 00:00 ULTRASOUND-GUIDED RIGHT THORACENTESIS CLINICAL HISTORY: Right pleural effusion PROCEDURE: Procedure and risks were explained. Informed consent was obtained. A final timeout was completed. The right posterior thorax was prepped and draped in sterile fashion. 1% lidocaine was utilized for skin anesthesia. Utilizing ultrasound guidance, a 5 English safety centesis catheter was advanced into the right pleural effusion. Ultrasound images were obtained. A total of 500 mL of pleural fluid was removed and sent to the lab. The catheter was removed and Band-Aid applied. The patient tolerated the procedure well. A chest x-ray will be obtained and vital signs will be monitored postprocedure. IMPRESSION: Ultrasound-guided right thoracentesis as above. Performed, dictated, and signed by Zeferino Hayward PA-C; to be co-signed by Dr. Flip Jose. Electronically signed by: Flip Jose M.D. 03/09/2025 3:53 PM Chest X-Ray 03/09/25 12:51 XR chest 1V not portable HISTORY: 44 years-old Female s/p rt thora status post thoracentesis COMPARISON: Chest radiograph of same day at 5:35 AM TECHNIQUE: AP view of the chest FINDINGS: Hypoinflation. Cardiac silhouette is enlarged. Right IJ Asnney-h-Fgok catheter in place. Mild linear bibasilar opacities suggestive of atelectasis. Small right pleural effusion has decreased in size from prior. No postprocedural pneumothorax identified. The bones of the chest appear grossly intact. Mild mid to lower thoracic levoscoliosis. IVC filter in place. IMPRESSION: No postprocedural pneumothorax identified. ACT 112: Negative or not required by law. The above report was generated using voice recognition software. It may contain grammatical, syntax or spelling errors. Electronically signed by: Jonn Li M.D. 03/09/2025 1:17 PM Abdomen/Pelvis CT 03/09/25 22:29 Exam(s): CT ABDOMEN + PELVIS Without Contrast EXAM: CT Abdomen and Pelvis Without Intravenous Contrast CLINICAL HISTORY: R flank pain, heparin. OTHER: Other Notes: R flank pain, heparin TECHNIQUE: Axial computed tomography images of the abdomen and pelvis without intravenous contrast. CTDI is 17.77 mGy and DLP is 892.4 mGy-cm. Automated exposure control was utilized for the study. A dose lowering technique was utilized adhering to the principles of ALARA. COMPARISON: CT abdomen and pelvis with contrast dated 03/02/2025 FINDINGS: Lung bases: No significant abnormality. No mass. No consolidation. Pleural space: The bilateral pleural effusions have decreased in size but remain. Mediastinum: Prominent fluid distention of the distal thoracic esophagus. Postsurgical changes of the gastroesophageal junction. ABDOMEN: Liver: The multiple lesions throughout the liver are not well demonstrated on this noncontrast examination. Gallbladder and bile ducts: The gallbladder is mildly distended. There is a solitary noncalcified gallstone noted in the gallbladder with surrounding slight hyperdense material. No ductal dilation. Pancreas: No significant abnormality. No ductal dilation. Spleen: Similar perisplenic fluid. Adrenals: No significant abnormality. No mass. Kidneys and ureters: Bilateral double-J ureteral stents remain in position. However, there is new [id number]-opwobuog right hydronephrosis and proximal right ureterectasis. Stomach and bowel: Evaluation of the bowel is limited without contrast. Similar diffuse fluid-filled small bowel. A right sided ileostomy is noted. Subtotal colectomy remains. Incidental duodenal diverticulum noted, similar to the previous exam. Postsurgical changes also noted along the greater curvature of the stomach consistent with previous gastric reduction surgery. PELVIS: Appendix: Surgically absent. Bladder: The bladder is unremarkable and is stable in appearance, mild- to-moderately distended. No stones. Reproductive: Status post hysterectomy. Subperitoneal space: Similar to minimally increased presacral edema. ABDOMEN and PELVIS: Intraperitoneal space: No significant abnormality. No free air. No significant fluid collection. Bones/joints: No acute fracture. No dislocation. Soft tissues: See above. Mild fat stranding noted along the lateral aspect of the pelvis bilaterally. Vasculature: An IVC filter is noted in position. No abdominal aortic aneurysm. Lymph nodes: No significant abnormality. No enlarged lymph nodes. IMPRESSION: 1. Bilateral double-J ureteral stents remain in position. However, there is new [id number] right hydronephrosis and proximal right ureterectasis. This finding raises the suspicion for potential developing occlusion or insufficiency of the right ureteral stent. However, no significant perinephric abnormality noted bilaterally. 2. Similar perisplenic fluid. 3. Prominent fluid distention of the distal thoracic esophagus. Postsurgical changes of the gastroesophageal junction. The clinical significance of this finding is indeterminate. 4. Additional findings previously identified, as noted above. Electronically signed by: Zeferino Umaña MD 03/09/25 23:15 PM Medications Administered Current Inpatient Medications Al Hydrox/Mg Hydrox/Simethicone (Aluminum/Magnesium/Simeth (Maalox Max) 30 Ml Udc) 15 ml PO Q6H PRN PRN Reason: Indigestion Stop: 04/07/25 14:48 Last Admin: 03/09/25 23:06 Dose: 15 ml Albuterol (Albut/Ipratrop 3mg/0.5mg Neb 3 Ml Vial) 3 ml NEB Q6R PRN; Protocol PRN Reason: sob, wheezing Stop: 04/04/25 18:59 Apixaban (Apixaban 5 Mg Tablet) 5 mg PO BID [facility] Stop: 03/29/25 08:59 Last Admin: 03/02/25 10:18 Dose: Not Given Benzonatate (Benzonatate 100 Mg Capsule) 100 mg PO TID PRN PRN Reason: Cough Stop: 04/08/25 02:05 Last Admin: 03/09/25 02:36 Dose: 100 mg Buspirone HCl (Buspirone 5 Mg Tab) 10 mg PO BID [place] Stop: 03/29/25 08:59 Last Admin: 03/11/25 09:04 Dose: 10 mg Diphenhydramine HCl (Diphenhydramine 50 Mg/Ml Vial) 25 mg IV Q12@0930,2130 [facility] Stop: 03/12/25 23:59 Last Admin: 03/11/25 09:03 Dose: 25 mg Escitalopram Oxalate (Escitalopram Oxalate 20 Mg Tab) 20 mg PO DAILY [facility] Stop: 03/29/25 08:59 Last Admin: 03/11/25 09:04 Dose: 20 mg Famotidine (Famotidine 20 Mg Tab) 20 mg PO BID [facility] Stop: 03/29/25 08:59 Last Admin: 03/11/25 09:03 Dose: 20 mg Fentanyl (Fentanyl 25 Mcg/Hr Tdsy) 1 patch TD Q3D [facility] Stop: 03/19/25 13:59 Last Admin: 03/11/25 09:02 Dose: 1 patch Fentanyl (Fentanyl 12 Mcg/Hr Tdsy) 1 patch TD Q3D [facility] Stop: 03/22/25 09:59 Last Admin: 03/11/25 09:02 Dose: 1 patch Folic Acid (Folic Acid 1 Mg Tab) 1 mg PO QAM [facility] Stop: 04/10/25 08:59 Last Admin: 03/11/25 09:04 Dose: 1 mg Heparin Sodium (Porcine) (Heparin 100 Unit/Ml 5ml Flush) 5 ml FLUSH PRN PRN PRN Reason: Flush Stop: 03/30/25 18:43 Hydromorphone HCl (Hydromorphone Hcl 2 Mg Tab) 4 mg PO Q4H PRN PRN Reason: pain Stop: 03/13/25 10:27 Last Admin: 03/11/25 03:57 Dose: 4 mg Hydromorphone HCl (Hydromorphone Inj 0.5 Mg/0.5 Ml Syr) 0.5 mg IV Q3H PRN PRN Reason: Pain Stop: 03/16/25 08:23 Last Admin: 03/11/25 09:01 Dose: 0.5 mg Promethazine HCl (Phenergan) 12.5 mg in 50.5 mls @ 202 mls/hr IV Q6H PRN PRN Reason: Nausea And Vomiting Stop: 03/29/25 07:35 Last Infusion: 03/07/25 23:16 Dose: Infused Prochlorperazine 5 mg/ Syringe 5 mls @ 5 mls/min IV Q6H PRN PRN Reason: Nausea And Vomiting Stop: 03/29/25 07:35 Last Admin: 03/10/25 18:15 Dose: 5 mls/min Lorazepam 0.5 mg/ Syringe 0.5 mls @ 2 mls/min IV Q8H PRN PRN Reason: Anxiety/Agitation Stop: 04/01/25 00:19 Last Admin: 03/09/25 13:41 Dose: 2 mls/min Pantoprazole Sodium (Protonix) 40 mg in 10 mls @ 5 mls/min IV BID [facility] Stop: 04/01/25 20:59 Last Admin: 03/11/25 09:05 Dose: 5 mls/min Heparin Sodium/Dextrose (Heparin 26539 Unit/500 Ml D5w) 25,000 units in 500 mls @ 27 mls/hr IV .[id number] [facility]; Protocol Stop: 04/02/25 15:44 Last Titration: 03/11/25 07:12 Dose: 1,350 units/hr, 27 mls/hr Vancomycin HCl (Vancomycin Hcl / Nss) 1,000 mg in 270 mls @ 90 mls/hr IV Q12H [facility] Stop: 03/13/25 09:59 Last Infusion: 03/11/25 13:30 Dose: Infused Ertapenem (Invanz 1000mg) 1,000 mg in 10 mls @ 2 mls/min IV Q24H [facility] Stop: 03/19/25 20:59 Last Admin: 03/10/25 20:20 Dose: 2 mls/min Acetaminophen (Ofirmev) 1,000 mg in 100 mls @ 400 mls/hr IV Q8H PRN PRN Reason: pain/fever Stop: 03/13/25 23:50 Last Infusion: 03/11/25 00:32 Dose: Infused Sodium Chloride (Nss) 100 mls @ 15 mls/hr IV .Q6H40M PRN PRN Reason: For Transfusion Duration Stop: 03/11/25 17:35 Lidocaine (Lidocaine 5% 1 Patch) 1 patch TD QAM [facility] Stop: 04/09/25 09:14 Last Admin: 03/11/25 08:50 Dose: Not Given Lorazepam (Lorazepam 0.5 Mg Tab) 0.5 mg PO TID PRN PRN Reason: Anxiety Stop: 03/29/25 04:59 Last Admin: 03/11/25 00:15 Dose: 0.5 mg Methocarbamol (Methocarbamol 500 Mg Tablet) 500 mg PO TID PRN PRN Reason: spasm Stop: 04/03/25 04:12 Last Admin: 03/09/25 20:29 Dose: 500 mg Metoclopramide HCl (Metoclopramide Hcl 5 Mg Tablet) 5 mg PO TID [facility] Stop: 03/11/25 20:59 Last Admin: 03/11/25 13:37 Dose: 5 mg Miscellaneous (Fentanyl Patch Remove & Waste) 1 each N/A Q3D [facility] Stop: 04/04/25 13:59 Last Admin: 03/11/25 09:02 Dose: 1 each Miscellaneous (Check Fentanyl Patch Placement) 1 each N/A QS [facility] Stop: 04/04/25 15:59 Last Admin: 03/11/25 09:04 Dose: 1 each Miscellaneous (Fentanyl Patch Remove & Waste) 1 each N/A Q3D [facility] Stop: 04/07/25 09:58 Last Admin: 03/11/25 09:02 Dose: 1 each Miscellaneous (Check Fentanyl Patch Placement) 1 each N/A QS [facility] Stop: 04/07/25 15:59 Last Admin: 03/11/25 09:04 Dose: 1 each Miscellaneous (Remove Lidoderm Patch) 1 each N/A DAILY@2100 [facility] Stop: 04/09/25 20:59 Last Admin: 03/10/25 20:27 Dose: 1 each Miscellaneous Information (Vancomycin Consult Active) 1 each N/A UD PRN PRN Reason: Consult Stop: 03/13/25 09:59 Multivitamins/Minerals (Cerovite Adv Formula Tab) 1 tab PO QAM [facility] Stop: 04/03/25 08:59 Last Admin: 03/11/25 08:51 Dose: Not Given Ondansetron HCl (Ondansetron Inj 2 Mg/Ml 2 Ml Vial) 4 mg IV Q6H PRN PRN Reason: Nausea Stop: 03/29/25 04:59 Last Admin: 03/11/25 09:03 Dose: 4 mg Phenol (Chloraseptic (Phenol) 1.4% Soln 180 Ml Btl) 2 sprays MT Q6H PRN PRN Reason: throat pain Stop: 03/31/25 09:26 Last Admin: 03/01/25 12:33 Dose: 2 sprays Pregabalin (Pregabalin 50 Mg Cap) 50 mg PO BID [facility] Stop: 03/29/25 08:59 Last Admin: 03/11/25 09:03 Dose: 50 mg Sucralfate (Sucralfate 1 Gm Tab) 1 gm PO QID [facility] Stop: 04/04/25 16:59 Last Admin: 03/11/25 13:36 Dose: 1 gm Thiamine HCl (Thiamine Hcl 100 Mg Tab) 200 mg PO DAILY [facility] Stop: 04/10/25 08:59 Last Admin: 03/11/25 08:51 Dose: Not Given PG Care Time/CCT Total # of Minutes Spent Total Time Spent with Patient: Total time spent is greater than 50% in coordination of care (as documented) at patient's floor/unit and/or counseling patient: Coding [place] [address] SUB INP/OBS CARE 2/35MIN Patient Type Established History Expanded Problem Focused Exam Expanded Problem Focused Medical Decision Making Moderate Complexity Diagnoses Cancer related pain G89.3 Generalized abdominal pain R10.84 Abdominal location: generalized Vomiting of fecal matter with nausea R11.13 Vomiting type: vomiting of fecal matter Palliative care by specialist Z51.5 Adenocarcinoma, colon C18.9 (2) Abdominal pain Abdominal location: generalized Qualified Code(s): R10.84 - Generalized abdominal pain (3) Nausea & vomiting Vomiting type: vomiting of fecal matter Qualified Code(s): R11.13 - Vomiting of fecal matter
[2025-03-11] MEDS ORDERED: PROMETHAZINE HCL 12.5 MG SUPP PR PRN (16:33)
[2025-03-11] MEDS: ONDANSETRON 4 MG OD TAB PO PRN (17:28)
[2025-03-11] MEDS: MoRPHine SULFATE 10 MG/0.5 ML UDP PO PRN (17:29)
[2025-03-12 06:29] LABS: Hematocrit (blood only) 27.9 % (37.0-47.0); Hemoglobin 8.8 g/dL (12.0-16.0); Immature Granulocytes # (auto) 0.07 K/uL (0.01-0.20); Immature Granulocytes % (auto) 0.6 %; Mean Corpuscular Hemoglobin 25.6 pg (25.0-34.0); Mean Corpuscular Volume 81.1 fL (80.0-100.0); Platelet Count 154 K/uL (130-400); RDW Standard Deviation 54.9 fL (36.4-46.3); Red Blood Count 3.44 M/uL (4.20-5.40); White Blood Count 12.02 K/ul (4.8-10.8)
[2025-03-12 06:47] LABS: Anion Gap 10.0 (3-11); Blood Urea Nitrogen 17.0 mg/dl (6-23); Calcium 8.4 mg/dl (8.6-10.3); Carbon Dioxide 29.0 mmol/L (21-32); Chloride 96.0 mmol/L (98-107); Creatinine Clr Calc Pharmacy 86.0 ml/min; Glucose 88.0 mg/dl (70-99(Fasting)); Potassium 4.3 mmol/L (3.5-5.1); Sodium 135.0 mmol/L (136-145)
[2025-03-12 07:01] LABS: ANTI-Xa, UFH(UnfractionatedHep < 0.10 IU/ml (0.3-0.7)
--- NOTE | 2025-03-12 13:47 | Hospitalist Progress Note ---
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 difficile s/p treatment, anxiety and depression, iron deficiency anemia presents with abdominal pain. Patient is having ongoing pain for several weeks now. This is her third admission since last 1 month. Patient is status post right ureteral stent on and supposed to follow-up outpatient for stent removal. She was on Bactrim and amoxicillin for postop hepatic abscess, says no longer on antibiotics. She was again admitted 06 of February for small bowel obstruction and was discharged on 02/08/2025. Patient is followed with palliative care. Currently on p.o. Dilaudid 4 mg every 3 hours as needed for pain. Patient says Dilaudid is causing her nauseous. States abdominal pain is not getting better. She is having a lot of nausea and vomiting. She says not eating because of nausea. She is being managed for the following: Partial SBO: Patient presents with abdominal pain and persistent nausea and vomiting with decreased p.o. intake. Metastatic colon cancer Patient presents with abdominal pain, nausea, vomiting, decreased p.o. intake. Status post EGD 03/02: Impression Normal duodenum, a sleeve gastrectomy was found with healthy-appearing mucosa, erythematous mucosa in the stomach biopsies, LA grade D reflux esophagitis with bleeding biopsies, in light of large amount of retained fluid in the stomach and esophagus at least some degree of partial obstruction motility is suspected likely related to overall tumor burden Pathology report reports of stomach biopsy, esophagus biopsy came back to be negative for any malignancy Pt reports better control of N, V. Is tolerating full liq now. Continue on Compazine, Zofran and Phenergan as needed for nausea/vomiting. General surgery on board, recs are full liq diet and reglan Continue with PPI. and multivitamins with minerals, IV thiamine, IV folic acid. Remains weak and lethargic with ongoing nausea and vomiting at times Minimal abdominal pain since last night Remains medically stablesurgery service signed off Remains weak and lethargic and awaiting PT and OT evaluation Was advised to keep appointments/make appointments with her oncologist and surgery team at [facility] as soon as possible Remains stable with ongoing symptoms of nausea, vomiting and abdominal pain Pain medicine has been changed to oral morphine and antiemetics has been changed to ODT Zofran She remains very weak and lethargic and symptomatic to be discharged Anemia s/p EGD - see above, c/w iv ppi. s/p 1 unit PRBC. Monitor HnH Hemoglobin dropped to 7.3 and the patient remains generally weak and lethargic No evidence of acute blood loss Will give another unit of PRBC for ongoing symptoms of anemia Her hemoglobin went up to 8.8 following 1 unit of blood transfusion Per prior attending: Patient's surgical oncologist Dr. Johnson reached out on March 01, 2025. I provided update on patient's current condition. He reports that unfortunately patient does have recurrence of colon cancer given elevated tumor markers. The initial plan was reversal of the colostomy- which will be kept on hold for the time being as it will delay patient to obtain chemotherapy. He also asked me to discuss with patient if she wants to follow- up with local oncology for chemotherapy. I updated the patient about my discussion with her surgical oncologist on March 02, 2025; she verbalized understanding. She wants to follow-up at [facility] oncology. She reports that PET/CT is still not done yet; would like to follow-up with them to have it done. Acute UTI/ Possible right pyelonephritis Abdominal pain, hydroureteronephrosis Status post CTAP with IV contrast 03/02: Noted multifocal pneumonia in the lung bases bilaterally. Noted small bowel obstruction. Noted findings concerning for possible right pyelonephritis. Of note, patient recently presented with right-sided abdominal pain status post right ureteral stent placement February 03, 2025 with improvement in the pain. Admitting CTAP with mild left-sided hydronephroureterosis Patient underwent cystoscopy with left ureteral stent placement February 08, reports improvement in her left abdominal pain. Urine culture grew Salma multiple times, given recent ureteral procedure; pt started on fluconazole for candiduria. s/p 8 d fluconazole, stopped 03/08. Appreciate ID eval. QTc 03/08 - 443 Pt now with hematuria, UCx has been sent, if Hematuria continues will likely recall uro. Has had hematuria with increasing pain last night and CT scan did show questionable stent obstruction with new hydronephrosis Hematuria seems to be improving as of this morning Patient remains n.p.o. and for further evaluation by the urologist today urine culture was sent and started on intravenous ertapenem Ertapenem will be discontinued Multifocal pneumonia: Concern for mutlifocal pna on lung bases noted on 03/02 CTAP with IV contrast. 03/05 CT chest w/ increasing pneumonia and increased pleural effusion. MRSA +ve. Sp Cx +ve for MRSA. Pulm consulted, appreciate recs. ID evaled 03/08, recs vanc for 7 days and if being dc'd consider po linezolid to complete. s/p rt thoracentesis - 500 ml out, f/u fluid studies, cx and pathology reports. Parapneumonic effusionadvised to continue antibiotic for longer duration as per the mate fishing vessel Pleural fluid cytology came back positive for metastatic adenocarcinoma of colonresidual carcinoma in the block was sent to [facility] panel and that report will be available later Will give linezolid to complete the course of 14 days in total on discharge Linezolid cannot be given due to interaction with too many medications that she has been currently taking Will continue with intravenous vancomycin for the next few days prior to discharge . History of PE: On Eliquis- resumed after EGD, now on hep drip as pt not able to take po. Anxiety and depression: On Lexapro, BuSpar and Ativan as needed. c/w as able. GERD: on protonix-continue DVT prophylaxis: On Heparin drip Disposition: pcu/tele floor Full code. Please note the above document was generated using voice recognition software. It may contain grammatical, syntax or spelling errors. Any formal questions or concerns about the content, text or information contained within the body of this dictation should be directly addressed to the provider for clarification Admission and Anticipated Discharge Date Admission Date: February 27, 2025 Subjective 03/10/2025 The patient was seen and examined in telemetry unit She has been complaining of nausea and occasional vomiting Also increasing pain in the thoracentesis site on the right chest wall Denies any shortness of breath at rest but has been requiring 3 L to maintain saturation 03/11/2025 The patient was seen and examined in telemetry unit She remains weak and lethargic Complains of minimal pain, nausea and vomiting at times Has been tolerating current diet Awaiting PT and OT evaluation 03/12/2025 The patient was seen and examined in telemetry unit She remains weak and lethargic Still complains nausea and vomiting with abdominal pain No abdominal distention Review of Systems Review of Systems: All systems reviewed and are unremarkable except as noted below Physical Exam Physical Exam: Lying in bed without any acute distress Constitutional: + ill appearing and average body habitus Eyes: PERRL, conjunctivae normal, anicteric sclerae ENMT: external ear and nose normal, oropharynx normal Neck: trachea midline, no thyromegaly Respiratory: + respiratory distress ( minimal respira tory distress at rest) Auscultation: + diminished lung sounds ( right base mainly with occasional crackles) Cardiovascular: Rate/Rhythm: regular rate, regular rhythm and + tachycardic Heart Sounds: normal S1 and normal S2; no murmur Extremities: no edema Gastrointestinal (Abdomen): Inspection/Auscultation: normal bowel sounds; abdomen not distended Percussion/Palpation: + abdomen tender and abdomen soft Musculoskeletal: no acute arthritis involving any of the joint Neurologic: normal touch/pain/proprioception and moves all extremities; no focal motor deficits Lymphatic: no cervical or axillary lymphadenopathy Results & Data Results & Data Vital Signs (Past 12 Hours) Vital Signs Temp Pulse Pulse Pulse Resp BP Pulse Ox 03/12/25 12:41 36.6 C 125 H 16 127/90 90 03/12/25 08:58 03/12/25 07:22 37.2 C 117 H 18 130/96 97 03/12/25 07:16 115 H 03/12/25 04:30 37.1 C 112 H 20 132/93 98 O2 Del Method O2 Flow Rate 03/12/25 12:41 Room Air 03/12/25 08:58 Nasal Cannula 2 03/12/25 07:22 Nasal Cannula 2 03/12/25 07:16 03/12/25 04:30 Nasal Cannula 2 Laboratory Results Short CBC 03/12/25 Range/Units 06:03 WBC 12.02 H (4.8-10.8) K/ul Hgb 8.8 L (12.0-16.0) g/dL Hct 27.9 L (37.0-47.0) % Plt Count 154 (130-400) K/uL BMP 03/12/25 06:03 Sodium 135 L Potassium 4.3 Chloride 96 L Carbon Dioxide 29 BUN 17 Creatinine 0.78 Glucose 88 Calcium 8.4 L Medications Administered Current Inpatient Medications Al Hydrox/Mg Hydrox/Simethicone (Aluminum/Magnesium/Simeth (Maalox Max) 30 Ml Udc) 15 ml PO Q6H PRN PRN Reason: Indigestion Stop: 04/07/25 14:48 Last Admin: 03/09/25 23:06 Dose: 15 ml Albuterol (Albut/Ipratrop 3mg/0.5mg Neb 3 Ml Vial) 3 ml NEB Q6R PRN; Protocol PRN Reason: sob, wheezing Stop: 04/04/25 18:59 Apixaban (Apixaban 5 Mg Tablet) 5 mg PO BID [place] Stop: 03/29/25 08:59 Last Admin: 03/02/25 10:18 Dose: Not Given Benzonatate (Benzonatate 100 Mg Capsule) 100 mg PO TID PRN PRN Reason: Cough Stop: 04/08/25 02:05 Last Admin: 03/09/25 02:36 Dose: 100 mg Buspirone HCl (Buspirone 5 Mg Tab) 10 mg PO BID [place] Stop: 03/29/25 08:59 Last Admin: 03/12/25 08:43 Dose: 10 mg Diphenhydramine HCl (Diphenhydramine 50 Mg/Ml Vial) 25 mg IV Q12@0930,2130 [facility] Stop: 03/12/25 23:59 Last Admin: 03/12/25 08:49 Dose: 25 mg Escitalopram Oxalate (Escitalopram Oxalate 20 Mg Tab) 20 mg PO DAILY [place] Stop: 03/29/25 08:59 Last Admin: 03/12/25 08:43 Dose: 20 mg Famotidine (Famotidine 20 Mg Tab) 20 mg PO BID [place] Stop: 03/29/25 08:59 Last Admin: 03/12/25 08:49 Dose: 20 mg Fentanyl (Fentanyl 25 Mcg/Hr Tdsy) 1 patch TD Q3D [place] Stop: 03/19/25 13:59 Last Admin: 03/11/25 09:02 Dose: 1 patch Fentanyl (Fentanyl 12 Mcg/Hr Tdsy) 1 patch TD Q3D [place] Stop: 03/22/25 09:59 Last Admin: 03/11/25 09:02 Dose: 1 patch Folic Acid (Folic Acid 1 Mg Tab) 1 mg PO QAM [place] Stop: 04/10/25 08:59 Last Admin: 03/12/25 08:42 Dose: 1 mg Heparin Sodium (Porcine) (Heparin 100 Unit/Ml 5ml Flush) 5 ml FLUSH PRN PRN PRN Reason: Flush Stop: 03/30/25 18:43 Hydromorphone HCl (Hydromorphone Inj 0.5 Mg/0.5 Ml Syr) 0.5 mg IV Q3H PRN PRN Reason: Pain Stop: 03/16/25 08:23 Last Admin: 03/12/25 11:22 Dose: 0.5 mg Prochlorperazine 5 mg/ Syringe 5 mls @ 5 mls/min IV Q6H PRN PRN Reason: Nausea And Vomiting Stop: 03/29/25 07:35 Last Admin: 03/10/25 18:15 Dose: 5 mls/min Lorazepam 0.5 mg/ Syringe 0.5 mls @ 2 mls/min IV Q8H PRN PRN Reason: Anxiety/Agitation Stop: 04/01/25 00:19 Last Admin: 03/09/25 13:41 Dose: 2 mls/min Pantoprazole Sodium (Protonix) 40 mg in 10 mls @ 5 mls/min IV BID [place] Stop: 04/01/25 20:59 Last Admin: 03/12/25 08:49 Dose: 5 mls/min Vancomycin HCl (Vancomycin Hcl / Nss) 1,000 mg in 270 mls @ 90 mls/hr IV Q12H [place] Stop: 03/20/25 02:00 Last Infusion: 03/12/25 13:21 Dose: Infused Ertapenem (Invanz 1000mg) 1,000 mg in 10 mls @ 2 mls/min IV Q24H [place] Stop: 03/19/25 20:59 Last Admin: 03/11/25 22:16 Dose: 2 mls/min Acetaminophen (Ofirmev) 1,000 mg in 100 mls @ 400 mls/hr IV Q8H PRN PRN Reason: pain/fever Stop: 03/13/25 23:50 Last Infusion: 03/11/25 00:32 Dose: Infused Lorazepam (Lorazepam 0.5 Mg Tab) 0.5 mg PO TID PRN PRN Reason: Anxiety Stop: 03/29/25 04:59 Last Admin: 03/12/25 00:21 Dose: 0.5 mg Methocarbamol (Methocarbamol 500 Mg Tablet) 500 mg PO TID PRN PRN Reason: spasm Stop: 04/03/25 04:12 Last Admin: 03/09/25 20:29 Dose: 500 mg Miscellaneous (Fentanyl Patch Remove & Waste) 1 each N/A Q3D [facility] Stop: 04/04/25 13:59 Last Admin: 03/11/25 09:02 Dose: 1 each Miscellaneous (Check Fentanyl Patch Placement) 1 each N/A QS [facility] [place] Stop: 04/04/25 15:59 Last Admin: 03/12/25 08:40 Dose: 1 each Miscellaneous (Fentanyl Patch Remove & Waste) 1 each N/A Q3D [facility] [place] Stop: 04/07/25 09:58 Last Admin: 03/11/25 09:02 Dose: 1 each Miscellaneous (Check Fentanyl Patch Placement) 1 each N/A QS [facility] [place] Stop: 04/07/25 15:59 Last Admin: 03/12/25 08:40 Dose: 1 each Miscellaneous (Remove Lidoderm Patch) 1 each N/A DAILY@2100 [facility] [place] Stop: 04/09/25 20:59 Last Admin: 03/11/25 21:59 Dose: 1 each Miscellaneous Information (Vancomycin Consult Active) 1 each N/A UD PRN PRN Reason: Consult Stop: 03/19/25 23:59 Morphine Sulfate (Morphine Sulfate 10 Mg/0.5 Ml Udp) 5 mg PO Q4H PRN PRN Reason: Pain Stop: 03/25/25 16:32 Last Admin: 03/12/25 10:09 Dose: 5 mg Multivitamins/Minerals (Cerovite Adv Formula Tab) 1 tab PO QAM [facility] Stop: 04/03/25 08:59 Last Admin: 03/12/25 08:42 Dose: 1 tab Ondansetron HCl (Ondansetron Inj 2 Mg/Ml 2 Ml Vial) 4 mg IV Q6H PRN PRN Reason: Nausea Stop: 03/29/25 04:59 Last Admin: 03/11/25 09:03 Dose: 4 mg Ondansetron HCl (Ondansetron 4 Mg Od Tab) 4 mg PO Q6H PRN PRN Reason: Nausea Stop: 04/10/25 16:32 Last Admin: 03/12/25 01:40 Dose: 4 mg Phenol (Chloraseptic (Phenol) 1.4% Soln 180 Ml Btl) 2 sprays MT Q6H PRN PRN Reason: throat pain Stop: 03/31/25 09:26 Last Admin: 03/01/25 12:33 Dose: 2 sprays Pregabalin (Pregabalin 50 Mg Cap) 50 mg PO BID [facility] [place] Stop: 03/29/25 08:59 Last Admin: 03/12/25 08:49 Dose: 50 mg Promethazine HCl (Promethazine Hcl 12.5 Mg Supp) 12.5 mg VT Q6H PRN PRN Reason: Nausea And Vomiting Stop: 04/10/25 16:32 Sucralfate (Sucralfate 1 Gm Tab) 1 gm PO QID [facility] Stop: 04/04/25 16:59 Last Admin: 03/12/25 13:21 Dose: 1 gm Thiamine HCl (Thiamine Hcl 100 Mg Tab) 200 mg PO DAILY [facility] Stop: 04/10/25 08:59 Last Admin: 03/12/25 08:42 Dose: 200 mg (1) Abdominal pain Abdominal location: generalized Qualified Code(s): R10.84 - Generalized abdominal pain
--- NOTE | 2025-03-13 11:50 | Hospitalist Progress Note ---
Date of Service March 13, 2025 Assessment & Plan (1) Abdominal pain: Plan: 44-year-old female with past medical history significant for metastatic colon adenocarcinoma mets to liver and peritoneum, perforated diverticulitis/adenocarcinoma status post colostomy, pulm embolism on Eliquis, C. difficile s/p treatment, anxiety and depression, iron deficiency anemia presents with abdominal pain. Patient is having ongoing pain for several weeks now. This is her third admission since last 1 month. Patient is status post right ureteral stent on and supposed to follow-up outpatient for stent removal. She was on Bactrim and amoxicillin for postop hepatic abscess, says no longer on antibiotics. She was again admitted 06 of February for small bowel obstruction and was discharged on 02/08/2025. Patient is followed with palliative care. Currently on p.o. Dilaudid 4 mg every 3 hours as needed for pain. Patient says Dilaudid is causing her nauseous. States abdominal pain is not getting better. She is having a lot of nausea and vomiting. She says not eating because of nausea. She is being managed for the following: Partial SBO: Patient presents with abdominal pain and persistent nausea and vomiting with decreased p.o. intake. Metastatic colon cancer Patient presents with abdominal pain, nausea, vomiting, decreased p.o. intake. Status post EGD 03/02: Impression Normal duodenum, a sleeve gastrectomy was found with healthy-appearing mucosa, erythematous mucosa in the stomach biopsies, LA grade D reflux esophagitis with bleeding biopsies, in light of large amount of retained fluid in the stomach and esophagus at least some degree of partial obstruction motility is suspected likely related to overall tumor burden Pathology report reports of stomach biopsy, esophagus biopsy came back to be negative for any malignancy Pt reports better control of N, V. Is tolerating full liq now. Continue on Compazine, Zofran and Phenergan as needed for nausea/vomiting. General surgery on board, recs are full liq diet and reglan Continue with PPI. and multivitamins with minerals, IV thiamine, IV folic acid. Remains weak and lethargic with ongoing nausea and vomiting at times Minimal abdominal pain since last night Remains medically stablesurgery service signed off Remains weak and lethargic and awaiting PT and OT evaluation Was advised to keep appointments/make appointments with her oncologist and surgery team at [facility] as soon as possible Remains stable with ongoing symptoms of nausea, vomiting and abdominal pain Pain medicine has been changed to oral morphine and antiemetics has been changed to ODT Zofran She remains very weak and lethargic and symptomatic to be discharged She remains stable stable she could be given her multiple comorbid medical conditions including colon cancer Anemia s/p EGD - see above, c/w iv ppi. s/p 1 unit PRBC. Monitor HnH Hemoglobin dropped to 7.3 and the patient remains generally weak and lethargic No evidence of acute blood loss Will give another unit of PRBC for ongoing symptoms of anemia Her hemoglobin went up to 8.8 following 1 unit of blood transfusion Per prior attending: Patient's surgical oncologist Dr. Johnson reached out on March 01, 2025. I provided update on patient's current condition. He reports that unfortunately patient does have recurrence of colon cancer given elevated tumor markers. The initial plan was reversal of the colostomy- which will be kept on hold for the time being as it will delay patient to obtain chemotherapy. He also asked me to discuss with patient if she wants to follow- up with local oncology for chemotherapy. I updated the patient about my discussion with her surgical oncologist on March 02, 2025; she verbalized understanding. She wants to follow-up at [facility] oncology. She reports that PET/CT is still not done yet; would like to follow-up with them to have it done. Acute UTI/ Possible right pyelonephritis Abdominal pain, hydroureteronephrosis Status post CTAP with IV contrast 03/02: Noted multifocal pneumonia in the lung bases bilaterally. Noted small bowel obstruction. Noted findings concerning for possible right pyelonephritis. Of note, patient recently presented with right-sided abdominal pain status post right ureteral stent placement February 03, 2025 with improvement in the pain. Admitting CTAP with mild left-sided hydronephroureterosis Patient underwent cystoscopy with left ureteral stent placement February 08, 2025, reports improvement in her left abdominal pain. Urine culture grew Salma multiple times, given recent ureteral procedure; pt started on fluconazole for candiduria. s/p 8 d fluconazole, stopped 03/08. Appreciate ID eval. QTc 03/08 - 443 Pt now with hematuria, UCx has been sent, if Hematuria continues will likely recall uro. Has had hematuria with increasing pain last night and CT scan did show questionable stent obstruction with new hydronephrosis Hematuria seems to be improving as of this morning Patient remains n.p.o. and for further evaluation by the urologist today urine culture was sent and started on intravenous ertapenem Ertapenem will be discontinued Multifocal pneumonia: Concern for mutlifocal pna on lung bases noted on 03/02 CTAP with IV contrast. 03/05 CT chest w/ increasing pneumonia and increased pleural effusion. MRSA +ve. Sp Cx +ve for MRSA. Pulm consulted, appreciate recs. ID evaled 03/08, recs vanc for 7 days and if being dc'd consider po linezolid to complete. s/p rt thoracentesis - 500 ml out, f/u fluid studies, cx and pathology reports. Parapneumonic effusionadvised to continue antibiotic for longer duration as per the roll skinner Pleural fluid cytology came back positive for metastatic adenocarcinoma of colonresidual carcinoma in the block was sent to [facility] panel and that report will be available later Will give linezolid to complete the course of 14 days in total on discharge Linezolid cannot be given due to interaction with too many medications that she has been currently taking Will continue with intravenous vancomycin for the next few days prior to discharge She cannot have Zyvox due to too much interactions with her current medications so plan to give her for a day or 2 on IV vancomycin and send her home on oral clindamycin on Saturday for 2 or 3 more days to continue . History of PE: On Eliquis- resumed after EGD, now on hep drip as pt not able to take po. Anxiety and depression: On Lexapro, BuSpar and Ativan as needed. c/w as able. GERD: on protonix-continue DVT prophylaxis: On Heparin drip Disposition: pcu/tele floor Full code. Please note the above document was generated using voice recognition software. It may contain grammatical, syntax or spelling errors. Any formal questions or concerns about the content, text or information contained within the body of this dictation should be directly addressed to the provider for clarification Admission and Anticipated Discharge Date Admission Date: February 27, 2025 Subjective 03/10/2025 The patient was seen and examined in telemetry unit She has been complaining of nausea and occasional vomiting Also increasing pain in the thoracentesis site on the right chest wall Denies any shortness of breath at rest but has been requiring 3 L to maintain saturation 03/11/2025 The patient was seen and examined in telemetry unit She remains weak and lethargic Complains of minimal pain, nausea and vomiting at times Has been tolerating current diet Awaiting PT and OT evaluation 03/12/2025 The patient was seen and examined in telemetry unit She remains weak and lethargic Still complains nausea and vomiting with abdominal pain No abdominal distention 03/13/2025 The patient was seen and examined in telemetry unit She remains weak and lethargic and still has nausea with occasional vomiting Still complains of abdominal pain but a little better with Oramorph Review of Systems Review of Systems: All systems reviewed and are unremarkable except as noted below Physical Exam Physical Exam: Lying in bed without any acute distress Constitutional: + ill appearing and average body habitus Eyes: PERRL, conjunctivae normal, anicteric sclerae ENMT: external ear and nose normal, oropharynx normal Neck: trachea midline, no thyromegaly Respiratory: + respiratory distress ( minimal respira tory distress at rest) Auscultation: + diminished lung sounds ( right base mainly with occasional crackles) Cardiovascular: Rate/Rhythm: regular rate, regular rhythm and + tachycardic Heart Sounds: normal S1 and normal S2; no murmur Extremities: no edema Gastrointestinal (Abdomen): Inspection/Auscultation: normal bowel sounds; abdomen not distended Percussion/Palpation: + abdomen tender and abdomen soft Musculoskeletal: No acute arthritis involving any of the joint Neurologic: normal touch/pain/proprioception and moves all extremities; no focal motor deficits Lymphatic: no cervical or axillary lymphadenopathy Results & Data Results & Data Vital Signs (Past 12 Hours) Vital Signs Temp Pulse Pulse Pulse Resp BP Pulse Ox 03/13/25 11:12 37.0 C 119 H 21 143/97 H 94 03/13/25 07:44 36.9 C 94 H 23 127/89 90 03/13/25 07:12 119 H 03/13/25 03:36 37.0 C 117 H 18 129/93 100 O2 Del Method O2 Flow Rate 03/13/25 11:12 Room Air 03/13/25 07:44 Nasal Cannula 2 03/13/25 07:12 03/13/25 03:36 Nasal Cannula 2 Medications Administered Current Inpatient Medications Al Hydrox/Mg Hydrox/Simethicone (Aluminum/Magnesium/Simeth (Maalox Max) 30 Ml Udc) 15 ml PO Q6H PRN PRN Reason: Indigestion Stop: 04/07/25 14:48 Last Admin: 03/09/25 23:06 Dose: 15 ml Albuterol (Albut/Ipratrop 3mg/0.5mg Neb 3 Ml Vial) 3 ml NEB Q6R PRN; Protocol PRN Reason: sob, wheezing Stop: 04/04/25 18:59 Apixaban (Apixaban 5 Mg Tablet) 5 mg PO BID [facility] Stop: 03/29/25 08:59 Last Admin: 03/02/25 10:18 Dose: Not Given Benzonatate (Benzonatate 100 Mg Capsule) 100 mg PO TID PRN PRN Reason: Cough Stop: 04/08/25 02:05 Last Admin: 03/09/25 02:36 Dose: 100 mg Buspirone HCl (Buspirone 5 Mg Tab) 10 mg PO BID [place] Stop: 03/29/25 08:59 Last Admin: 03/13/25 08:11 Dose: 10 mg Escitalopram Oxalate (Escitalopram Oxalate 20 Mg Tab) 20 mg PO DAILY [facility] Stop: 03/29/25 08:59 Last Admin: 03/13/25 08:12 Dose: 20 mg Famotidine (Famotidine 20 Mg Tab) 20 mg PO BID [place] Stop: 03/29/25 08:59 Last Admin: 03/13/25 08:19 Dose: 20 mg Fentanyl (Fentanyl 25 Mcg/Hr Tdsy) 1 patch TD Q3D [facility] Stop: 03/19/25 13:59 Last Admin: 03/11/25 09:02 Dose: 1 patch Fentanyl (Fentanyl 12 Mcg/Hr Tdsy) 1 patch TD Q3D [facility] Stop: 03/22/25 09:59 Last Admin: 03/11/25 09:02 Dose: 1 patch Folic Acid (Folic Acid 1 Mg Tab) 1 mg PO QAM [facility] Stop: 04/10/25 08:59 Last Admin: 03/13/25 08:12 Dose: 1 mg Heparin Sodium (Porcine) (Heparin 100 Unit/Ml 5ml Flush) 5 ml FLUSH PRN PRN PRN Reason: Flush Stop: 03/30/25 18:43 Hydromorphone HCl (Hydromorphone Inj 0.5 Mg/0.5 Ml Syr) 0.5 mg IV Q3H PRN PRN Reason: Pain Stop: 03/16/25 08:23 Last Admin: 03/12/25 11:22 Dose: 0.5 mg Prochlorperazine 5 mg/ Syringe 5 mls @ 5 mls/min IV Q6H PRN PRN Reason: Nausea And Vomiting Stop: 03/29/25 07:35 Last Admin: 03/13/25 02:59 Dose: 5 mls/min Lorazepam 0.5 mg/ Syringe 0.5 mls @ 2 mls/min IV Q8H PRN PRN Reason: Anxiety/Agitation Stop: 04/01/25 00:19 Last Admin: 03/09/25 13:41 Dose: 2 mls/min Pantoprazole Sodium (Protonix) 40 mg in 10 mls @ 5 mls/min IV BID [facility] Stop: 04/01/25 20:59 Last Admin: 03/13/25 08:19 Dose: 5 mls/min Vancomycin HCl (Vancomycin Hcl / Nss) 1,000 mg in 270 mls @ 90 mls/hr IV Q12H [facility] Stop: 03/20/25 02:00 Last Admin: 03/13/25 09:13 Dose: 90 mls/hr Ertapenem (Invanz 1000mg) 1,000 mg in 10 mls @ 2 mls/min IV Q24H [facility] Stop: 03/19/25 20:59 Last Admin: 03/12/25 20:58 Dose: 2 mls/min Acetaminophen (Ofirmev) 1,000 mg in 100 mls @ 400 mls/hr IV Q8H PRN PRN Reason: pain/fever Stop: 03/13/25 23:50 Last Infusion: 03/11/25 00:32 Dose: Infused Lorazepam (Lorazepam 0.5 Mg Tab) 0.5 mg PO TID PRN PRN Reason: Anxiety Stop: 03/29/25 04:59 Last Admin: 03/12/25 21:03 Dose: 0.5 mg Methocarbamol (Methocarbamol 500 Mg Tablet) 500 mg PO TID PRN PRN Reason: spasm Stop: 04/03/25 04:12 Last Admin: 03/09/25 20:29 Dose: 500 mg Miscellaneous (Fentanyl Patch Remove & Waste) 1 each N/A Q3D [facility] Stop: 04/04/25 13:59 Last Admin: 03/11/25 09:02 Dose: 1 each Miscellaneous (Check Fentanyl Patch Placement) 1 each N/A QS [facility] Stop: 04/04/25 15:59 Last Admin: 03/13/25 08:06 Dose: 1 each Miscellaneous (Fentanyl Patch Remove & Waste) 1 each N/A Q3D [facility] Stop: 04/07/25 09:58 Last Admin: 03/11/25 09:02 Dose: 1 each Miscellaneous (Check Fentanyl Patch Placement) 1 each N/A QS [facility] Stop: 04/07/25 15:59 Last Admin: 03/13/25 08:06 Dose: 1 each Miscellaneous (Remove Lidoderm Patch) 1 each N/A DAILY@2100 [facility] Stop: 04/09/25 20:59 Last Admin: 03/12/25 21:01 Dose: 1 each Miscellaneous Information (Vancomycin Consult Active) 1 each N/A UD PRN PRN Reason: Consult Stop: 03/19/25 23:59 Morphine Sulfate (Morphine Sulfate 10 Mg/0.5 Ml Udp) 5 mg PO Q4H PRN PRN Reason: Pain Stop: 03/25/25 16:32 Last Admin: 03/13/25 08:07 Dose: 5 mg Multivitamins/Minerals (Cerovite Adv Formula Tab) 1 tab PO QAM [facility] Stop: 04/03/25 08:59 Last Admin: 03/13/25 08:08 Dose: 1 tab Ondansetron HCl (Ondansetron Inj 2 Mg/Ml 2 Ml Vial) 4 mg IV Q6H PRN PRN Reason: Nausea Stop: 03/29/25 04:59 Last Admin: 03/12/25 21:20 Dose: 4 mg Ondansetron HCl (Ondansetron 4 Mg Od Tab) 4 mg PO Q6H PRN PRN Reason: Nausea Stop: 04/10/25 16:32 Last Admin: 03/12/25 01:40 Dose: 4 mg Phenol (Chloraseptic (Phenol) 1.4% Soln 180 Ml Btl) 2 sprays MT Q6H PRN PRN Reason: throat pain Stop: 03/31/25 09:26 Last Admin: 03/01/25 12:33 Dose: 2 sprays Pregabalin (Pregabalin 50 Mg Cap) 50 mg PO BID [facility] Stop: 03/29/25 08:59 Last Admin: 03/13/25 08:10 Dose: 50 mg Promethazine HCl (Promethazine Hcl 12.5 Mg Supp) 12.5 mg [place] Q6H PRN PRN Reason: Nausea And Vomiting Stop: 04/10/25 16:32 Sucralfate (Sucralfate 1 Gm Tab) 1 gm PO QID [facility] Stop: 04/04/25 16:59 Last Admin: 03/13/25 08:08 Dose: 1 gm Thiamine HCl (Thiamine Hcl 100 Mg Tab) 200 mg PO DAILY [facility] Stop: 04/10/25 08:59 Last Admin: 03/13/25 08:08 Dose: 200 mg (1) Abdominal pain Abdominal location: generalized Qualified Code(s): R10.84 - Generalized abdom inal pain
[2025-03-13] MEDS: MoRPHine SULFATE 10 MG/0.5 ML UDP PO PRN (21:18)
[2025-03-14 06:36] LABS: Creatinine Clr Calc Pharmacy 63.3 ml/min
--- NOTE | 2025-03-15 06:18 | Palliative Care Progress Note ---
Date of Service March 12, 2025 Assessment & Plan (1) Cancer related pain: Plan: TDF 37.5mcg q3days Would suggest using MS Elixir over IV Dilaudid to prepare for OP mgt She will follow up with me in OP pall med within 2-3 weeks of dc, we will schedule (contact Janice Forbes for appt) when closer to dc (2) Abdominal pain: (3) Nausea & vomiting: (4) Palliative care by specialist: (5) Advanced care planning/counseling discussion: Plan: Face to face ACP x 30 min at bedside Deanna has had prior bad experience with local providers and will return to her [facility] onc team, per her preference. She is aware they have a pall med team but wishes to keep following with me here at [facility]. She knows the cancer is back and feels hopeful from conversation with oncologist she can have effective treatment: "He says I did well with it before and should be this time as well." She is anxious to get a treatment plan together but knows she needs PET, she is hopeful to make her 03/31 PET appt, and is aware this cannot be done as inpatient. her is her partner in cancer mgt at home - he gives her IVF, administers her tube feeds etc. She knows nutrition has been an issue and has already discussed potential role for TPN with her oncologist and tells me she is willing to do this as a bridge to improving nutritional status and to avoid delaying chemo start. She does not want to discuss other goals of care until after PET scan and follow up with oncologist in [place]. (6) Adenocarcinoma of colon: (7) Depression with anxiety: (8) Colostomy present: Plan As above Thank you for allowing us to participate in the ongoing care of this patient. Please page with any additional concerns. Mikaela Hurst DNP Director, Palliative Medicine Admission and Anticipated Discharge Date Admission Date: February 27, 2025 Subjective Deanna is feeling about the same Pain is improved with TDF 37.5mcg q3days She has IV Dilaudid and oral MS elixir for BTP Due to her colon/GI surgeries and gastric bypasses she is not a candidate for long acting opioid tablets and she has multiple prior intolerances documented. Her insurance is notoriously difficult to get meds approved and prior auth then usually deny most meds on first round requiring appeals. She tells me she has been in touch with her [facility] oncologist and plans to follow up with him in [place], She does not want a local option due to prior bad experience. She is aware she has recurrent cancer and is frustrated by 'delay getting treatment plan started bc the PET scan needs done." This has been rescheduled d/t inpatient admission, see my prior notes Appetite is "ok" - still tolerating soups/trying Gelatein but notes the Boost supplements (dairy based) are not agreeing with her so she has not been drinking these) there is a collection of them growing on her windowsill.) Review of Systems Review of Systems: All systems reviewed & are unremarkable except as noted in Subjective Physical Exam Constitutional: WD/WN, vitals as above Eyes: PERRL, conjunctivae normal, anicteric sclerae ENMT: Mouth: + dry oral mucous membranes Neck: trachea midline Respiratory: normal respiratory effort, able to speak in complete sentences and symmetric chest movement Cardiovascular: RRR, no murmur, no edema Gastrointestinal (Abdomen): non tender BS+ Skin: no rashes, warm and dry Psychiatric: A+Ox3, euthymic affect Motor Behavior: steady gait and station Results & Data Vital Signs (Past 12 Hours) Vital Signs Temp Pulse Pulse Pulse Resp BP Pulse Ox 03/15/25 02:35 36.9 C 116 H 16 121/88 93 03/14/25 22:37 37.1 C 114 H 16 122/83 92 03/14/25 22:27 110 H 03/14/25 20:00 03/14/25 19:24 37.1 C 123 H 14 124/89 91 O2 Del Method 03/15/25 02:35 Room Air 03/14/25 22:37 Room Air 03/14/25 22:27 03/14/25 20:00 Room Air 03/14/25 19:24 Room Air PG Care Time/CCT Total # of Minutes Spent Total Time Spent with Patient: Total time spent is greater than 50% in coordination of care (as documented) at patient's floor/unit and/or counseling patient: Advanced Care Planning 78309 Advanced Care Planning 30 Min [place] [address] SUB INP/OBS CARE 3/50MIN (25 - SIGNIFICANT, SEPARATELY IDENTIFIABLE ) Patient Type Established Medical Decision Making High Complexity Diagnoses Cancer related pain G89.3 Generalized abdominal pain R10.84 Abdominal location: generalized Vomiting of fecal matter with nausea R11.13 Vomiting type: vomiting of fecal matter Palliative care by specialist Z51.5 Advanced care planning/counseling discussion Z71.89 Adenocarcinoma of colon C18.9 Depression with anxiety F41.8 Colostomy present Z93.3 Additional Codes Advanced Care Planning - 51049 Advanced Care Planning 30 Min: 87414 Advanced Care Planning 30 Min ([id number]) Comment [id number], [id number] (2) Abdominal pain Abdominal location: generalized Qualified Code(s): R10.84 - Generalized abdominal pain (3) Nausea & vomiting Vomiting type: vomiting of fecal matter Qualified Code(s): R11.13 - Vomiting of fecal matter
[2025-03-15 06:26] LABS: Hematocrit (blood only) 28.9 % (37.0-47.0); Hemoglobin 9.0 g/dL (12.0-16.0); Immature Granulocytes # (auto) 0.03 K/uL (0.01-0.20); Immature Granulocytes % (auto) 0.4 %; Mean Corpuscular Hemoglobin 25.8 pg (25.0-34.0); Mean Corpuscular Volume 82.8 fL (80.0-100.0); Platelet Count 184 K/uL (130-400); RDW Standard Deviation 56.6 fL (36.4-46.3); Red Blood Count 3.49 M/uL (4.20-5.40); White Blood Count 7.99 K/ul (4.8-10.8)
[2025-03-15] MEDS: SODIUM CHLORIDE 0.9% 500 ML IV ONE (06:31)
[2025-03-15 06:46] LABS: Alanine Aminotransferase 10.0 U/L (7-52); Albumin Globulin Ratio 0.9 (0.9-2); Albumin Level 3.1 gm/dl (3.4-5.0); Alkaline Phosphatase 276.0 U/L (34-104); Anion Gap 14.0 (3-11); Bilirubin,Total 0.5 mg/dl (0.2-1.0); Blood Urea Nitrogen 27.0 mg/dl (6-23); Calcium 8.7 mg/dl (8.6-10.3); Carbon Dioxide 27.0 mmol/L (21-32); Chloride 96.0 mmol/L (98-107); Creatinine Clr Calc Pharmacy 57.3 ml/min; Globulin 3.4 gm/dl (2.5-4.0); Glucose 105.0 mg/dl (70-99(Fasting)); Magnesium 2.3 mg/dl (1.7-2.4); Potassium 4.5 mmol/L (3.5-5.1); Sodium 137.0 mmol/L (136-145); Total Protein 6.5 gm/dl (6.0-8.3)
[2025-03-15 06:56] LABS: Base Excess VBG 2.4 mEq/L; HCO3 VBG 27 mmol/L; Oxygen Saturation VBG < 60.0 %; PCO2 VBG 43 mmHg (38-50); PO2 VBG < 20 mmHg; pH VBG 7.41 (7.36-7.41)
[2025-03-15 07:01] LABS: Hematocrit (blood only) 28.7 % (37.0-47.0); Hemoglobin 8.8 g/dL (12.0-16.0); Immature Granulocytes # (auto) 0.06 K/uL (0.01-0.20); Immature Granulocytes % (auto) 0.8 %; Mean Corpuscular Hemoglobin 25.8 pg (25.0-34.0); Mean Corpuscular Volume 84.2 fL (80.0-100.0); Platelet Count 180 K/uL (130-400); RDW Standard Deviation 56.1 fL (36.4-46.3); Red Blood Count 3.41 M/uL (4.20-5.40); White Blood Count 7.66 K/ul (4.8-10.8)
[2025-03-15] MEDS: SODIUM CHLORIDE 0.9% 1,000 ML IV SCH (07:23)
[2025-03-15 07:25] LABS: Alanine Aminotransferase 10.0 U/L (7-52); Albumin Globulin Ratio 0.9 (0.9-2); Albumin Level 2.9 gm/dl (3.4-5.0); Alkaline Phosphatase 260.0 U/L (34-104); Anion Gap 14.0 (3-11); Bilirubin,Total 0.5 mg/dl (0.2-1.0); Blood Urea Nitrogen 28.0 mg/dl (6-23); Calcium 8.6 mg/dl (8.6-10.3); Carbon Dioxide 26.0 mmol/L (21-32); Chloride 97.0 mmol/L (98-107); Creatinine Clr Calc Pharmacy 57.7 ml/min; Globulin 3.3 gm/dl (2.5-4.0); Glucose 102.0 mg/dl (70-99(Fasting)); Magnesium 2.2 mg/dl (1.7-2.4); Potassium 4.4 mmol/L (3.5-5.1); Sodium 137.0 mmol/L (136-145); Total Protein 6.2 gm/dl (6.0-8.3)
--- NOTE | 2025-03-15 08:13 | CT Scan Report ---
EXAM: CT head/brain wo con CLINICAL HISTORY: AMS TECHNIQUE: Axial non-contrast CT scan of the brain was performed from the skull base to the high parietal region with axial, sagittal, and coronal reconstructions. One of the following dose reduction techniques was utilized for this exam: automated exposure control, adjustment of the mA and/or kV according to patient size, and use of iterative reconstruction. DLP: 625.80 mGy.cm COMPARISON: None. FINDINGS: Brain Parenchyma: Normal attenuation of the cerebral hemispheres, cerebellum, and brainstem. No evidence of acute infarct, hemorrhage, or mass effect. No abnormal areas of hypo- or hyperattenuation. Ventricular System: Ventricles are normal in size and configuration. No evidence of hydrocephalus or ventricular enlargement. Subarachnoid Spaces: Normal sulci and cisterns. No evidence of subarachnoid hemorrhage or extra-axial fluid collections. Cerebellum and Brainstem: No masses, lesions, or areas of abnormal density. Orbits: Normal appearance of the globes, optic nerves, and extraocular muscles. No evidence of orbital masses or abnormal density. Sinuses: Clear paranasal sinuses. No evidence of sinusitis or mucosal thickening. Mastoid Air Cells: Clear mastoid air cells. No evidence of mastoiditis. Skull: Normal skull morphology. IMPRESSION: 1. Normal CT of the head without contrast. 2. MRI with diffusion may be indicated if there is a clinical possibility of hyperacute or acute infarction. Electronically signed by Jacques Sweeney 03-15-2025 08:12 AM
--- NOTE | 2025-03-15 08:35 | Hospitalist Progress Note ---
Date of Service March 15, 2025 Delayed progress note for 03/14/2025 Assessment & Plan (1) Abdominal pain: Plan: 44-year-old female with past medical history significant for metastatic colon adenocarcinoma mets to liver and peritoneum, perforated diverticulitis/ adenocarcinoma status post colostomy, pulm embolism on Eliquis, C. difficile s/p treatment, anxiety and depression, iron deficiency anemia presents with abdominal pain. Patient is having ongoing pain for several weeks now. This is her third admission since last 1 month. Patient is status post right ureteral stent on and supposed to follow-up outpatient for stent removal. She was on Bactrim and amoxicillin for postop hepatic abscess, says no longer on antibiotics. She was again admitted 06 of February for small bowel obstruction and was discharged on 02/08/2025. Patient is followed with palliative care. Currently on p.o. Dilaudid 4 mg every 3 hours as needed for pain. Patient says Dilaudid is causing her nauseous. States abdominal pain is not getting better. She is having a lot of nausea and vomiting. She says not eating because of nausea. She is being managed for the following: Partial SBO: Patient presents with abdominal pain and persistent nausea and vomiting with decreased p.o. intake. Metastatic colon cancer Patient presents with abdominal pain, nausea, vomiting, decreased p.o. intake. Status post EGD 03/02: Impression Normal duodenum, a sleeve gastrectomy was found with healthy-appearing mucosa, erythematous mucosa in the stomach biopsies, LA grade D reflux esophagitis with bleeding biopsies, in light of large amount of retained fluid in the stomach and esophagus at least some degree of partial obstruction motility is suspected likely related to overall tumor burden Pathology report reports of stomach biopsy, esophagus biopsy came back to be negative for any malignancy Pt reports better control of N, V. Is tolerating full liq now. Continue on Compazine, Zofran and Phenergan as needed for nausea/vomiting. General surgery on board, recs are full liq diet and reglan Continue with PPI. and multivitamins with minerals, IV thiamine, IV folic acid. Remains weak and lethargic with ongoing nausea and vomiting at times Minimal abdominal pain since last night Remains medically stablesurgery service signed off Remains weak and lethargic and awaiting PT and OT evaluation Was advised to keep appointments/make appointments with her oncologist and surgery team at [facility] as soon as possible Remains stable with ongoing symptoms of nausea, vomiting and abdominal pain Pain medicine has been changed to oral morphine and antiemetics has been changed to ODT Zofran She remains very weak and lethargic and symptomatic to be discharged She remains stable stable she could be given her multiple comorbid medical conditions including colon cancer She is not not yet ready to be discharged Anemia s/p EGD - see above, c/w iv ppi. s/p 1 unit PRBC. Monitor HnH Hemoglobin dropped to 7.3 and the patient remains generally weak and lethargic No evidence of acute blood loss Will give another unit of PRBC for ongoing symptoms of anemia Her hemoglobin went up to 8.8 following 1 unit of blood transfusion Hemoglobin remains stable following blood transfusion Per prior attending: Patient's surgical oncologist Dr. Johnson reached out on March 01, 2025. I provided update on patient's current condition. He reports that unfortunately patient does have recurrence of colon cancer given elevated tumor markers. The initial plan was reversal of the colostomy- which will be kept on hold for the time being as it will delay patient to obtain chemotherapy. He also asked me to discuss with patient if she wants to follow- up with local oncology for chemotherapy. I updated the patient about my discussion with her surgical oncologist on March 02, 2025; she verbalized understanding. She wants to follow-up at [facility] oncology. She reports that PET/CT is still not done yet; would like to follow-up with them to have it done. Acute UTI/ Possible right pyelonephritis Abdominal pain, hydroureteronephrosis Status post CTAP with IV contrast 03/02: Noted multifocal pneumonia in the lung bases bilaterally. Noted small bowel obstruction. Noted findings concerning for possible right pyelonephritis. Of note, patient recently presented with right-sided abdominal pain status post right ureteral stent placement February 03, 2025 with improvement in the pain. Admitting CTAP with mild left-sided hydronephroureterosis Patient underwent cystoscopy with left ureteral stent placement February 08, 2025, reports improvement in her left abdominal pain. Urine culture grew Salma multiple times, given recent ureteral procedure; pt started on fluconazole for candiduria. s/p 8 d fluconazole, stopped 03/08. Appreciate ID eval. QTc 03/08 - 443 Pt now with hematuria, UCx has been sent, if Hematuria continues will likely recall uro. Has had hematuria with increasing pain last night and CT scan did show questionable stent obstruction with new hydronephrosis Hematuria seems to be improving as of this morning Patient remains n.p.o. and for further evaluation by the urologist today urine culture was sent and started on intravenous ertapenem Ertapenem will be discontinued Multifocal pneumonia: Concern for mutlifocal pna on lung bases noted on 03/02 CTAP with IV contrast. 03/05 CT chest w/ increasing pneumonia and increased pleural effusion. MRSA +ve. Sp Cx +ve for MRSA. Pulm consulted, appreciate recs. ID evaled 03/08, recs vanc for 7 days and if being dc'd consider po linezolid to complete. s/p rt thoracentesis - 500 ml out, f/u fluid studies, cx and pathology reports. Parapneumonic effusionadvised to continue antibiotic for longer duration as per the production shift supervisor Pleural fluid cytology came back positive for metastatic adenocarcinoma of colonresidual carcinoma in the block was sent to [facility] RASRAF panel and that report will be available later Will give linezolid to complete the course of 14 days in total on discharge Linezolid cannot be given due to interaction with too many medications that she has been currently taking Will continue with intravenous vancomycin for the next few days prior to discharge She cannot have Zyvox due to too much interactions with her current medications so plan to give her for a day or 2 on IV vancomycin and send her home on oral clindamycin on Saturday for 2 or 3 more days to continue Remains on vancomycin and Zyvox could not be given so we will change to oral cli ndamycin on discharge . History of PE: On Eliquis- resumed after EGD, now on hep drip as pt not able to take po. Anxiety and depression: On Lexapro, BuSpar and Ativan as needed. c/w as able. GERD: on protonix-continue DVT prophylaxis: On Heparin drip Disposition: pcu/tele floor Full code. Please note the above document was generated using voice recognition software. It may contain grammatical, syntax or spelling errors. Any formal questions or concerns about the content, text or information contained within the body of this dictation should be directly addressed to the provider for clarification Admission and Anticipated Discharge Date Admission Date: February 27, 2025 Subjective 03/10/2025 The patient was seen and examined in telemetry unit She has been complaining of nausea and occasional vomiting Also increasing pain in the thoracentesis site on the right chest wall Denies any shortness of breath at rest but has been requiring 3 L to maintain saturation 03/11/2025 The patient was seen and examined in telemetry unit She remains weak and lethargic Complains of minimal pain, nausea and vomiting at times Has been tolerating current diet Awaiting PT and OT evaluation 03/12/2025 The patient was seen and examined in telemetry unit She remains weak and lethargic Still complains nausea and vomiting with abdominal pain No abdominal distention 03/13/2025 The patient was seen and examined in telemetry unit She remains weak and lethargic and still has nausea with occasional vomiting Still complains of abdominal pain but a little better with Oramorph 03/14/2025 The patient was seen and examined in telemetry unit She remains symptomatic with increasing pain, nausea and vomiting Review of Systems Review of Systems: All systems reviewed and unremarkable except as noted below Physical Exam Physical Exam: Lying in bed without any acute distress Constitutional: + ill appearing and average body habitus Eyes: PERRL, conjunctivae normal, anicteric sclerae ENMT: external ear and nose normal, oropharynx normal Neck: trachea midline, no thyromegaly Respiratory: + respiratory distress ( minimal respira tory distress at rest) Auscultation: + diminished lung sounds ( right base mainly with occasional crackles) Cardiovascular: Rate/Rhythm: regular rate, regular rhythm and + tachycardic Heart Sounds: normal S1 and normal S2; no murmur Extremities: no edema Gastrointestinal (Abdomen): Inspection/Auscultation: normal bowel sounds; abdomen not distended Percussion/Palpation: + abdomen tender and abdomen soft Musculoskeletal: No acute arthritis involving any of the joint Neurologic: normal touch/pain/proprioception and moves all extremities; no focal motor deficits Lymphatic: no cervical or axillary lymphadenopathy Results & Data Results & Data Vital Signs (Past 12 Hours) Vital Signs Temp Pulse Pulse Pulse Resp BP Pulse Ox 03/15/25 08:23 36.9 C 124 H 22 116/88 91 03/15/25 06:22 134 H 92/75 L 03/15/25 02:35 36.9 C 116 H 16 121/88 93 03/14/25 22:37 37.1 C 114 H 16 122/83 92 03/14/25 22:27 110 H O2 Del Method 03/15/25 08:23 Room Air 03/15/25 06:22 03/15/25 02:35 Room Air 03/14/25 22:37 Room Air 03/14/25 22:27 Laboratory Results Short CBC 03/15/25 03/15/25 Range/Units 06:00 06:46 WBC 7.99 7.66 (4.8-10.8) K/ul Hgb 9.0 L 8.8 L (12.0-16.0) g/dL Hct 28.9 L 28.7 L (37.0-47.0) % Plt Count 184 180 (130-400) K/uL BMP 03/15/25 03/15/25 06:00 06:46 Sodium 137 137 Potassium 4.5 4.4 Chloride 96 L 97 L Carbon Dioxide 27 26 BUN 27 H 28 H Creatinine 1.18 1.17 Glucose 105 H 102 H Calcium 8.7 8.6 Liver Function 03/15/25 03/15/25 Range/Units 06:00 06:46 Total Bilirubin 0.5 0.5 (0.2-1.0) mg/dl AST 22 22 (13-39) U/L ALT 10 10 (7-52) U/L Alkaline Phosphatase 276 H 260 H (34-104) U/L Albumin 3.1 L 2.9 L (3.4-5.0) gm/dl Medications Administered Current Inpatient Medications Al Hydrox/Mg Hydrox/Simethicone (Aluminum/Magnesium/Simeth (Maalox Max) 30 Ml Udc) 15 ml PO Q6H PRN PRN Reason: Indigestion Stop: 04/07/25 14:48 Last Admin: 03/14/25 20:14 Dose: 15 ml Albuterol (Albut/Ipratrop 3mg/0.5mg Neb 3 Ml Vial) 3 ml NEB Q6R PRN; Protocol PRN Reason: sob, wheezing Stop: 04/04/25 18:59 Apixaban (Apixaban 5 Mg Tablet) 5 mg PO BID [facility] Stop: 03/29/25 08:59 Last Admin: 03/02/25 10:18 Dose: Not Given Benzonatate (Benzonatate 100 Mg Capsule) 100 mg PO TID PRN PRN Reason: Cough Stop: 04/08/25 02:05 Last Admin: 03/09/25 02:36 Dose: 100 mg Buspirone HCl (Buspirone 5 Mg Tab) 10 mg PO BID [facility] Stop: 03/29/25 08:59 Last Admin: 03/14/25 20:15 Dose: 10 mg Escitalopram Oxalate (Escitalopram Oxalate 20 Mg Tab) 20 mg PO DAILY [facility] Stop: 03/29/25 08:59 Last Admin: 03/14/25 08:35 Dose: 20 mg Famotidine (Famotidine 20 Mg Tab) 20 mg PO BID [facility] Stop: 03/29/25 08:59 Last Admin: 03/14/25 20:15 Dose: 20 mg Fentanyl (Fentanyl 25 Mcg/Hr Tdsy) 1 patch TD Q3D [facility] Stop: 03/19/25 13:59 Last Admin: 03/14/25 09:16 Dose: 1 patch Fentanyl (Fentanyl 12 Mcg/Hr Tdsy) 1 patch TD Q3D [facility] Stop: 03/22/25 09:59 Last Admin: 03/14/25 09:16 Dose: 1 patch Folic Acid (Folic Acid 1 Mg Tab) 1 mg PO QAM [facility] Stop: 04/10/25 08:59 Last Admin: 03/14/25 08:37 Dose: 1 mg Heparin Sodium (Porcine) (Heparin 100 Unit/Ml 5ml Flush) 5 ml FLUSH PRN PRN PRN Reason: Flush Stop: 03/30/25 18:43 Hydromorphone HCl (Hydromorphone Inj 0.5 Mg/0.5 Ml Syr) 0.5 mg IV Q3H PRN PRN Reason: Pain Stop: 03/16/25 08:23 Last Admin: 03/15/25 03:31 Dose: 0.5 mg Prochlorperazine 5 mg/ Syringe 5 mls @ 5 mls/min IV Q6H PRN PRN Reason: Nausea And Vomiting Stop: 03/29/25 07:35 Last Admin: 03/14/25 20:18 Dose: 5 mls/min Lorazepam 0.5 mg/ Syringe 0.5 mls @ 2 mls/min IV Q8H PRN PRN Reason: Anxiety/Agitation Stop: 04/01/25 00:19 Last Admin: 03/09/25 13:41 Dose: 2 mls/min Pantoprazole Sodium (Protonix) 40 mg in 10 mls @ 5 mls/min IV BID [facility] Stop: 04/01/25 20:59 Last Admin: 03/14/25 21:01 Dose: 5 mls/min Sodium Chloride (Nss) 1,000 mls @ 80 mls/hr IV .[id number] [facility] Stop: 03/15/25 19:29 Last Admin: 03/15/25 07:23 Dose: 80 mls/hr Vancomycin HCl 1,250 mg/ (Sodium Chloride) 275 mls @ 91.667 mls/hr IV Q24H [facility] Stop: 03/19/25 22:00 Lorazepam (Lorazepam 0.5 Mg Tab) 0.5 mg PO TID PRN PRN Reason: Anxiety Stop: 03/29/25 04:59 Last Admin: 03/14/25 05:03 Dose: 0.5 mg Methocarbamol (Methocarbamol 500 Mg Tablet) 500 mg PO TID PRN PRN Reason: spasm Stop: 04/03/25 04:12 Last Admin: 03/09/25 20:29 Dose: 500 mg Miscellaneous (Fentanyl Patch Remove & Waste) 1 each N/A Q3D [facility] Stop: 04/04/25 13:59 Last Admin: 03/14/25 09:13 Dose: 1 each Miscellaneous (Check Fentanyl Patch Placement) 1 each N/A QS [facility] Stop: 04/04/25 15:59 Last Admin: 03/15/25 00:15 Dose: 1 each Miscellaneous (Fentanyl Patch Remove & Waste) 1 each N/A Q3D [facility] Stop: 04/07/25 09:58 Last Admin: 03/14/25 09:13 Dose: 1 each Miscellaneous (Check Fentanyl Patch Placement) 1 each N/A QS [facility] Stop: 04/07/25 15:59 Last Admin: 03/15/25 00:15 Dose: 1 each Miscellaneous (Remove Lidoderm Patch) 1 each N/A DAILY@2100 [facility] Stop: 04/09/25 20:59 Last Admin: 03/14/25 20:17 Dose: Not Given Miscellaneous Information (Vancomycin Consult Active) 1 each N/A UD PRN PRN Reason: Consult Stop: 03/19/25 23:59 Morphine Sulfate (Morphine Sulfate 10 Mg/0.5 Ml Udp) 5 mg PO Q3H PRN PRN Reason: Pain Stop: 03/25/25 16:32 Last Admin: 03/14/25 21:02 Dose: 5 mg Multivitamins/Minerals (Cerovite Adv Formula Tab) 1 tab PO QAM [facility] Stop: 04/03/25 08:59 Last Admin: 03/14/25 08:34 Dose: 1 tab Ondansetron HCl (Ondansetron Inj 2 Mg/Ml 2 Ml Vial) 4 mg IV Q6H PRN PRN Reason: Nausea Stop: 03/29/25 04:59 Last Admin: 03/15/25 05:47 Dose: 4 mg Ondansetron HCl (Ondansetron 4 Mg Od Tab) 4 mg PO Q6H PRN PRN Reason: Nausea Stop: 04/10/25 16:32 Last Admin: 03/13/25 13:21 Dose: 4 mg Phenol (Chloraseptic (Phenol) 1.4% Soln 180 Ml Btl) 2 sprays MT Q6H PRN PRN Reason: throat pain Stop: 03/31/25 09:26 Last Admin: 03/01/25 12:33 Dose: 2 sprays Pregabalin (Pregabalin 50 Mg Cap) 50 mg PO BID [facility] Stop: 03/29/25 08:59 Last Admin: 03/14/25 20:15 Dose: 50 mg Promethazine HCl (Promethazine Hcl 12.5 Mg Supp) 12.5 mg CO Q6H PRN PRN Reason: Nausea And Vomiting Stop: 04/10/25 16:32 Sucralfate (Sucralfate 1 Gm Tab) 1 gm PO QID [facility] Stop: 04/04/25 16:59 Last Admin: 03/14/25 20:15 Dose: 1 gm Thiamine HCl (Thiamine Hcl 100 Mg Tab) 200 mg PO DAILY [facility] Stop: 04/10/25 08:59 Last Admin: 03/14/25 08:37 Dose: 200 mg (1) Abdominal pain Abdominal location: generalized Qualified Code(s): R10.84 - Generalized abdominal pain
--- NOTE | 2025-03-15 13:19 | Hospitalist Progress Note ---
Date of Service March 15, 2025 Assessment & Plan (1) Abdominal pain: Plan: 44-year-old female with past medical history significant for metastatic colon adenocarcinoma mets to liver and peritoneum, perforated diverticulitis/adenocarcinoma status post colostomy, pulm embolism on Eliquis, C. difficile s/p treatment, anxiety and depression, iron deficiency anemia presents with abdominal pain. Patient is having ongoing pain for several weeks now. This is her third admission since last 1 month. Patient is status post right ureteral stent on and supposed to follow-up outpatient for stent removal. She was on Bactrim and amoxicillin for postop hepatic abscess, says no longer on antibiotics. She was again admitted 06 of February for small bowel obstruction and was discharged on 02/08/2025. Patient is followed with palliative care. Currently on p.o. Dilaudid 4 mg every 3 hours as needed for pain. Patient says Dilaudid is causing her nauseous. States abdominal pain is not getting better. She is having a lot of nausea and vomiting. She says not eating because of nausea. She is being managed for the following: Partial SBO: Patient presents with abdominal pain and persistent nausea and vomiting with decreased p.o. intake. Metastatic colon cancer Patient presents with abdominal pain, nausea, vomiting, decreased p.o. intake. Status post EGD 03/02: Impression Normal duodenum, a sleeve gastrectomy was found with healthy-appearing mucosa, erythematous mucosa in the stomach biopsies, LA grade D reflux esophagitis with bleeding biopsies, in light of large amount of retained fluid in the stomach and esophagus at least some degree of partial obstruction motility is suspected likely related to overall tumor burden Pathology report reports of stomach biopsy, esophagus biopsy came back to be negative for any malignancy Pt reports better control of N, V. Is tolerating full liq now. Continue on Compazine, Zofran and Phenergan as needed for nausea/vomiting. General surgery on board, recs are full liq diet and reglan Continue with PPI. and multivitamins with minerals, IV thiamine, IV folic acid. Remains weak and lethargic with ongoing nausea and vomiting at times Minimal abdominal pain since last night Remains medically stablesurgery service signed off Remains weak and lethargic and awaiting PT and OT evaluation Was advised to keep appointments/make appointments with her oncologist and surgery team at [facility] as soon as possible Remains stable with ongoing symptoms of nausea, vomiting and abdominal pain Pain medicine has been changed to oral morphine and antiemetics has been changed to ODT Zofran She remains very weak and lethargic and symptomatic to be discharged She remains stable stable she could be given her multiple comorbid medical conditions including colon cancer She is not not yet ready to be discharged Advised to take medicine sublingually and also apply rectally to avoid throwing off of from nausea Anemia s/p EGD - see above, c/w iv ppi. s/p 1 unit PRBC. Monitor HnH Hemoglobin dropped to 7.3 and the patient remains generally weak and lethargic No evidence of acute blood loss Will give another unit of PRBC for ongoing symptoms of anemia Her hemoglobin went up to 8.8 following 1 unit of blood transfusion Hemoglobin remains stable following blood transfusion Hemoglobin remains stable Discussed with the and the patient and will restart Eliquis from today Per prior attending: Patient's surgical oncologist Dr. Johnson reached out on March 01, 2025. I provided update on patient's current condition. He repor ts that unfortunately patient does have recurrence of colon cancer given elevated tumor markers. The initial plan was reversal of the colostomy- which will be kept on hold for the time being as it will delay patient to obtain chemotherapy. He also asked me to discuss with patient if she wants to follow- up with local oncology for chemotherapy. I updated the patient about my discussion with her surgical oncologist on March 02, 2025; she verbalized understanding. She wants to follow-up at [facility] oncology. She reports that PET/CT is still not done yet; would like to follow-up with them to have it done. Acute UTI/ Possible right pyelonephritis Abdominal pain, hydroureteronephrosis Status post CTAP with IV contrast 03/02: Noted multifocal pneumonia in the lung bases bilaterally. Noted small bowel obstruction. Noted findings concerning for possible right pyelonephritis. Of note, patient recently presented with right-sided abdominal pain status post right ureteral stent placement February 03, 2025 with improvement in the pain. Admitting CTAP with mild left-sided hydronephroureterosis Patient underwent cystoscopy with left ureteral stent placement February 08, 2025, reports improvement in her left abdominal pain. Urine culture grew Salma multiple times, given recent ureteral procedure; pt started on fluconazole for candiduria. s/p 8 d fluconazole, stopped 03/08. Appreciate ID eval. QTc 03/08 - 443 Pt now with hematuria, UCx has been sent, if Hematuria continues will likely recall uro. Has had hematuria with increasing pain last night and CT scan did show questionable stent obstruction with new hydronephrosis Hematuria seems to be improving as of this morning Patient remains n.p.o. and for further evaluation by the urologist today urine culture was sent and started on intravenous ertapenem Ertapenem will be discontinued Multifocal pneumonia: Concern for mutlifocal pna on lung bases noted on 03/02 CTAP with IV contrast. 03/05 CT chest w/ increasing pneumonia and increased pleural effusion. MRSA +ve. Sp Cx +ve for MRSA. Pulm consulted, appreciate recs. ID evaled 03/08, recs vanc for 7 days and if being dc'd consider po linezolid to complete. s/p rt thoracentesis - 500 ml out, f/u fluid studies, cx and pathology reports. Parapneumonic effusionadvised to continue antibiotic for longer duration as per the nematologist Pleural fluid cytology came back positive for metastatic adenocarcinoma of colonresidual carcinoma in the block was sent to [facility] panel and that report will be available later Will give linezolid to complete the course of 14 days in total on discharge Linezolid cannot be given due to interaction with too many medications that she has been currently taking Will continue with intravenous vancomycin for the next few days prior to discharge She cannot have Zyvox due to too much interactions with her current medications so plan to give her for a day or 2 on IV vancomycin and send her home on oral clindamycin on Saturday for 2 or 3 more days to continue Remains on vancomycin and Zyvox could not be given so we will change to oral clindamycin on discharge Will continue vancomycin with adjusted chest dose today and tomorrow prior to discharge hopefully . History of PE: On Eliquis- resumed after EGD, now on hep drip as pt not able to take po. Anxiety and depression: On Lexapro, BuSpar and Ativan as needed. c/w as able. GERD: on protonix-continue DVT prophylaxis: On Heparin drip Disposition: pcu/tele floor Full code. Please note the above document was generated using voice recognition software. It may contain grammatical, syntax or spelling errors. Any formal questions or concerns about the content, text or information contained within the body of this dictation should be directly addressed to the provider for clarification Admission and Anticipated Discharge Date Admission Date: February 27, 2025 Subjective 03/10/2025 The patient was seen and examined in telemetry unit She has been complaining of nausea and occasional vomiting Also increasing pain in the thoracentesis site on the right chest wall Denies any shortness of breath at rest but has been requiring 3 L to maintain saturation 03/11/2025 The patient was seen and examined in telemetry unit She remains weak and lethargic Complains of minimal pain, nausea and vomiting at times Has been tolerating current diet Awaiting PT and OT evaluation 03/12/2025 The patient was seen and examined in telemetry unit She remains weak and lethargic Still complains nausea and vomiting with abdominal pain No abdominal distention 03/13/2025 The patient was seen and examined in telemetry unit She remains weak and lethargic and still has nausea with occasional vomiting Still complains of abdominal pain but a little better with Oramorph 03/14/2025 The patient was seen and examined in telemetry unit She remains symptomatic with increasing pain, nausea and vomiting 03/15/2025 The patient was seen and examined in telemetry unit in the presence of the She remains weak and lethargic but looks much more bright Still complains to have burning in the esophagus and tries to assist with vomiti ng Pain seems to be otherwise controlled but referring IV Dilaudid over oral morphine Minimal jerks involving the lower extremities Has had acute confusion last night CT of the head is negative received some IV fluid for hypotension Review of Systems Review of Systems: All systems reviewed and unremarkable except as noted below Physical Exam Physical Exam: Lying in bed without any acute distress Constitutional: + ill appearing and average body habitus Eyes: PERRL, conjunctivae normal, anicteric sclerae ENMT: external ear and nose normal, oropharynx normal Neck: trachea midline, no thyromegaly Respiratory: + respiratory distress ( minimal respira tory distress at rest) Auscultation: + diminished lung sounds ( right base mainly with occasional crackles) Cardiovascular: Rate/Rhythm: regular rate, regular rhythm and + tachycardic Heart Sounds: normal S1 and normal S2; no murmur Extremities: no edema Gastrointestinal (Abdomen): Inspection/Auscultation: normal bowel sounds; abdomen not distended Percussion/Palpation: + abdomen tender and abdomen soft Musculoskeletal: No acute arthritis involving any of the joint Neurologic: normal touch/pain/proprioception and moves all extremities; no focal motor deficits Lymphatic: no cervical or axillary lymphadenopathy Results & Data Results & Data Vital Signs (Past 12 Hours) Vital Signs Temp Pulse Pulse Resp BP Pulse Ox O2 Del Method 03/15/25 11:32 36.8 C 118 H 20 112/79 93 Room Air 03/15/25 08:23 36.9 C 124 H 22 116/88 91 Room Air 03/15/25 06:22 134 H 92/75 L 03/15/25 02:35 36.9 C 116 H 16 121/88 93 Room Air Laboratory Results Short CBC 03/15/25 03/15/25 Range/Units 06:00 06:46 WBC 7.99 7.66 (4.8-10.8) K/ul Hgb 9.0 L 8.8 L (12.0-16.0) g/dL Hct 28.9 L 28.7 L (37.0-47.0) % Plt Count 184 180 (130-400) K/uL BMP 03/15/25 03/15/25 06:00 06:46 Sodium 137 137 Potassium 4.5 4.4 Chloride 96 L 97 L Carbon Dioxide 27 26 BUN 27 H 28 H Creatinine 1.18 1.17 Glucose 105 H 102 H Calcium 8.7 8.6 Liver Function 03/15/25 03/15/25 Range/Units 06:00 06:46 Total Bilirubin 0.5 0.5 (0.2-1.0) mg/dl AST 22 22 (13-39) U/L ALT 10 10 (7-52) U/L Alkaline Phosphatase 276 H 260 H (34-104) U/L Albumin 3.1 L 2.9 L (3.4-5.0) gm/dl Medications Administered Current Inpatient Medications Al Hydrox/Mg Hydrox/Simethicone (Aluminum/Magnesium/Simeth (Maalox Max) 30 Ml Udc) 15 ml PO Q6H PRN PRN Reason: Indigestion Stop: 04/07/25 14:48 Last Admin: 03/14/25 20:14 Dose: 15 ml Albuterol (Albut/Ipratrop 3mg/0.5mg Neb 3 Ml Vial) 3 ml NEB Q6R PRN; Protocol PRN Reason: sob, wheezing Stop: 04/04/25 18:59 Apixaban (Apixaban 5 Mg Tablet) 5 mg PO BID [facility] Stop: 03/29/25 08:59 Last Admin: 03/02/25 10:18 Dose: Not Given Buspirone HCl (Buspirone 5 Mg Tab) 10 mg PO BID [facility] Stop: 03/29/25 08:59 Last Admin: 03/15/25 09:12 Dose: 10 mg Escitalopram Oxalate (Escitalopram Oxalate 20 Mg Tab) 20 mg PO DAILY [facility] Stop: 03/29/25 08:59 Last Admin: 03/15/25 09:12 Dose: 20 mg Famotidine (Famotidine 20 Mg Tab) 20 mg PO BID [facility] Stop: 03/29/25 08:59 Last Admin: 03/15/25 09:18 Dose: 20 mg Fentanyl (Fentanyl 25 Mcg/Hr Tdsy) 1 patch TD Q3D [facility] Stop: 03/19/25 13:59 Last Admin: 03/14/25 09:16 Dose: 1 patch Fentanyl (Fentanyl 12 Mcg/Hr Tdsy) 1 patch TD Q3D [facility] Stop: 03/22/25 09:59 Last Admin: 03/14/25 09:16 Dose: 1 patch Folic Acid (Folic Acid 1 Mg Tab) 1 mg PO QAM [facility] Stop: 04/10/25 08:59 Last Admin: 03/15/25 09:13 Dose: 1 mg Heparin Sodium (Porcine) (Heparin 100 Unit/Ml 5ml Flush) 5 ml FLUSH PRN PRN PRN Reason: Flush Stop: 03/30/25 18:43 Hydromorphone HCl (Hydromorphone Inj 0.5 Mg/0.5 Ml Syr) 0.5 mg IV Q3H PRN PRN Reason: Pain Stop: 03/16/25 08:23 Last Admin: 03/15/25 10:27 Dose: 0.5 mg Prochlorperazine 5 mg/ Syringe 5 mls @ 5 mls/min IV Q6H PRN PRN Reason: Nausea And Vomiting Stop: 03/29/25 07:35 Last Admin: 03/14/25 20:18 Dose: 5 mls/min Lorazepam 0.5 mg/ Syringe 0.5 mls @ 2 mls/min IV Q8H PRN PRN Reason: Anxiety/Agitation Stop: 04/01/25 00:19 Last Admin: 03/09/25 13:41 Dose: 2 mls/min Pantoprazole Sodium (Protonix) 40 mg in 10 mls @ 5 mls/min IV BID [facility] Stop: 04/01/25 20:59 Last Admin: 03/15/25 09:18 Dose: 5 mls/min Sodium Chloride (Nss) 1,000 mls @ 80 mls/hr IV .[id number] [facility] Stop: 03/15/25 19:29 Last Admin: 03/15/25 07:23 Dose: 80 mls/hr Lorazepam (Lorazepam 0.5 Mg Tab) 0.5 mg PO TID PRN PRN Reason: Anxiety Stop: 03/29/25 04:59 Last Admin: 03/15/25 10:27 Dose: 0.5 mg Methocarbamol (Methocarbamol 500 Mg Tablet) 500 mg PO TID PRN PRN Reason: spasm Stop: 04/03/25 04:12 Last Admin: 03/15/25 09:12 Dose: 500 mg Miscellaneous (Fentanyl Patch Remove & Waste) 1 each N/A Q3D [facility] Stop: 04/04/25 13:59 Last Admin: 03/14/25 09:13 Dose: 1 each Miscellaneous (Check Fentanyl Patch Placement) 1 each N/A QS [facility] Stop: 04/04/25 15:59 Last Admin: 03/15/25 09:11 Dose: 1 each Miscellaneous (Fentanyl Patch Remove & Waste) 1 each N/A Q3D [facility] Stop: 04/07/25 09:58 Last Admin: 03/14/25 09:13 Dose: 1 each Miscellaneous (Check Fentanyl Patch Placement) 1 each N/A QS [facility] Stop: 04/07/25 15:59 Last Admin: 03/15/25 09:10 Dose: 1 each Miscellaneous (Remove Lidoderm Patch) 1 each N/A DAILY@2100 [facility] Stop: 04/09/25 20:59 Last Admin: 03/14/25 20:17 Dose: Not Given Morphine Sulfate (Morphine Sulfate 10 Mg/0.5 Ml Udp) 5 mg PO Q3H PRN PRN Reason: Pain Stop: 03/25/25 16:32 Last Admin: 03/15/25 10:53 Dose: 5 mg Ondansetron HCl (Ondansetron Inj 2 Mg/Ml 2 Ml Vial) 4 mg IV Q6H PRN PRN Reason: Nausea Stop: 03/29/25 04:59 Last Admin: 03/15/25 10:27 Dose: 4 mg Ondansetron HCl (Ondansetron 4 Mg Od Tab) 4 mg PO Q6H PRN PRN Reason: Nausea Stop: 04/10/25 16:32 Last Admin: 03/13/25 13:21 Dose: 4 mg Phenol (Chloraseptic (Phenol) 1.4% Soln 180 Ml Btl) 2 sprays MT Q6H PRN PRN Reason: throat pain Stop: 03/31/25 09:26 Last Admin: 03/01/25 12:33 Dose: 2 sprays Pregabalin (Pregabalin 50 Mg Cap) 50 mg PO BID [facility] Stop: 03/29/25 08:59 Last Admin: 03/15/25 09:18 Dose: 50 mg Promethazine HCl (Promethazine Hcl 12.5 Mg Supp) 12.5 mg ID Q6H PRN PRN Reason: Nausea And Vomiting Stop: 04/10/25 16:32 Sucralfate (Sucralfate 1 Gm Tab) 1 gm PO QID [facility] Stop: 04/04/25 16:59 Last Admin: 03/15/25 09:12 Dose: 1 gm (1) Abdominal pain Abdominal location: generalized Qualified Code(s): R10.84 - Generalized abdominal pain
[2025-03-15] MEDS ORDERED: VANCOMYCIN CONSULT ACTIVE PRN (13:26)
--- NOTE | 2025-03-15 14:01 | Pharmacy Report ---
Pharmacy PK ABX Note - Date of Service March 15, 2025 - Assessment and Plan Assessment 03/15: * Day #10 vancomycin * Vancomycin level drawn this morning was 33.1mcg/mL which extrapolates to AUC significantly above goal. The maintenance dose of vancomycin was decreased * Per hospitalist note, patient advocate recommends longer duration of antibiotics (14 days). * SCr trending up (1.17mg/dL today), leukocytosis has resolved, and afebrile. * ertapenem discontinued 03/14 as urine culture grew Salma. 03/10: * Random vancomycin level this AM was ~18 mcg/ml - current dosing anticipated to achieve goal AUC/ASH therefore will continue current vancomycin regimen. ID recommending 7 days total for MRSA pneumonia. Today is day 08/12 for therapy. Patient s/p thoracentesis 03/09 - cultures pending. Patient with gross hematuria/flank pain - provider starting ertapenem d/t hx ESBL uti's and also ordered a urine culture. 03/08: * Sputum culture finalized as MRSA * SCr increasing (0.53 mg/dL -> 0.7 mg/dL -> 0.93 mg/dL) * Antibiotics to be de-escalated today per hospitalist. Discussed possible s witch to linezolid (given tolerability concerns with vancomycin), but holding off on this for now until provider can discuss with patient (due to concomitant escitalopram and buspirone). * Pre-medicating with diphenhydramine 25 mg IV * Awaiting ID consult 03/07 * Sputum culture growing S. aureus, sensitivities pending * WBC downtrending, afebrile, tolerating vancomycin at slower rate * Infectious disease consulted * Random level today 15.5 mcg/mL correlates with achievement of target AUC/ASH 03/06 * 44 year old F receiving vancomycin/cefepime/doxycycline for treatment of multifocal pneumonia (increasing O2 requirements today) and IV fluconazole for urinary tract infection. Pertinent microbiologic data includes: Positive MRSA Nasal Swab, urine culture 02/27/25 growing salma albicans. 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 Will double length of infusion and pre- treat with diphenhydramine (ordered by pulm). Possibly could increase vancomycin dilution if needed. Patient is not a great linezolid candidate due to multiple serotonergic medications and daptomycin is not recommended for pneumonia treatment. Would recommend ID consult if not tolerating vancomycin for other treatment options. Plan Vancomycin * Vancomycin level drawn this morning was 33.1mcg/mL which extrapolates to an A UC of 786mg/L.hr * Decrease maintenance dose of vancomycin to 1250mg iv q 24 hours starting this evening--will continue to run over longer duration. * Another vanco level will be ordered in the next few days if the patient is still admitted or if clinically necessary. Pharmacy will continue to follow and will adjust dose/frequency as necessary. Thank you. Pharmacy has transitioned to AUC monitoring for vancomycin. AUC/ASH is the preferred PK/PD target and is associated with decreased risk of nephrotoxicity compared to traditional trough targets.
--- NOTE | 2025-03-15 17:14 | Palliative Care Progress Note ---
Date of Service March 15, 2025 Assessment & Plan (1) Abdominal pain: (2) Nausea & vomiting: Plan: Pt reports improved today, tolerating liquid diet, advancing slowly encouraged Gelatein for nutritional optimization. (3) Palliative care by specialist: Plan: PET scheduled for 03/31 at 1130am, Palliative care will continue to follow for ongoing symptom mgmt and patient support. (4) Depression with anxiety: (5) Colostomy present: (6) Cancer related pain: Plan: Deanna reports pain well managed, we discussed need to transition to PO /TD medications from IV meds in preparation for discharge. She is agreeable with DC IV dilaudid and modest increase in TD fentanyl to 50ucg/hr patch q72h. Continue oral morphine for BTP. Pt likely to be discharged to home tomorrow and will follow with palliative care team Dr Hurst in outpt clinic. (7) Adenocarcinoma, colon: Plan As above Admission and Anticipated Discharge Date Admission Date: February 27, 2025 Subjective Assessed pt at bedside, no visitors present. She shared that pain has been well controlled over weekend and c/o drowsiness. VSS. Pt had head CT overnight due to lethagy. NAICA - she appears a t her baseline on my assessment.. Review of Systems Review of Systems: All systems reviewed & are unremarkable except as noted in Subjective Physical Exam Constitutional: WD/WN, vitals as above Eyes: PERRL, conjunctivae normal, anicteric sclerae Respiratory: normal respiratory effort, lungs clear to auscultation Cardiovascular: RRR, no murmur, no edema Skin: no rashes, warm and dry Psychiatric: A+Ox3, euthymic affect Results & Data Vital Signs (Past 12 Hours) Vital Signs Temp Pulse Pulse Resp BP Pulse Ox O2 Del Method 03/15/25 11:32 36.8 C 118 H 20 112/79 93 Room Air 03/15/25 08:23 36.9 C 124 H 22 116/88 91 Room Air 03/15/25 06:22 134 H 92/75 L 03/15/25 02:35 36.9 C 116 H 16 121/88 93 Room Air Laboratory Results Abnormal lab results 03/15/25 03/15/25 Range/Units 06:00 06:46 RBC 3.49 L 3.41 L (4.20-5.40) M/uL Hgb 9.0 L 8.8 L (12.0-16.0) g/dL Hct 28.9 L 28.7 L (37.0-47.0) % MCHC 31.1 L 30.7 L (32.0-36.0) g/dL RDW Std Deviation 56.6 H 56.1 H (36.4-46.3) fL RDW Coeff of Mita 18.7 H 18.5 H (11.5-14.5) % Lymph # (Auto) 0.73 L 0.69 L (1.20-3.40) K/uL [place] # (Auto) 1.05 H 0.99 H (0.11-0.59) K/uL Chloride 96 L 97 L (98-107) mmol/L Anion Gap 14 H 14 H (3-11) BUN 27 H 28 H (6-23) mg/dl BUN/Creatinine Ratio 22.9 H 23.9 H (10-20) Glucose 105 H 102 H (70-99(Fasting)) mg/dl Alkaline Phosphatase 276 H 260 H (34-104) U/L Albumin 3.1 L 2.9 L (3.4-5.0) gm/dl Random Vancomycin 33.1 H* (10-20) mcg/ml Diagnostic Findings Abdomen Fluoroscopy 02/28/25 00:00 FL KUB CLINICAL HISTORY: LEFT STENT PLACEMENT COMPARISON STUDY: None FLUOROSCOPY TIME: 5 seconds FLUOROSCOPY IMAGES: 4 EXPOSURE DOSE: 1 mGy FINDINGS: Fluoroscopy was provided for urologic procedure. IMPRESSION: Intraoperative fluoroscopy. ACT 112: Negative or not required by law. Electronically signed by: Ricardo Green M.D. 03/01/2025 8:[address] 03/05/25 13:23 CT chest diagnostic wo con CT DOSE: 443.65 mGy.cm CLINICAL HISTORY: Pna under Rx, now w/ increasing O2 need. TECHNIQUE: Multiaxial CT images of the chest were performed without contrast. A dose lowering technique was utilized adhering to the principles of ALARA. COMPARISON STUDY: 02/02/2025 FINDINGS: There are bilateral pleural effusions, moderate on the right small on the left, increased. There is increased bandlike and patchy consolidation in the lower lung lobes, right greater than left. There is increased scattered patchy groundglass opacity in the upper lobes, left greater than right. No pneumothorax seen. No enlarged adenopathy. The esophagus is fluid-filled and mildly dilated. Represent reflux or reduced esophageal motility. No pericardial effusion. Masses at the upper liver are grossly stable. No acute osseous finding seen. IMPRESSION: Increased pneumonia and increased pleural effusions. ACT 112: Negative or not required by law. Electronically signed by: Ricardo Green M.D. 03/05/2025 3:09 PM KUB X-Ray 03/07/25 14:16 EXAM: Radiograph of the Abdomen 1 View INDICATION: Pain TECHNIQUE: Frontal supine view of the abdomen/pelvis. COMPARISON: CT 03/02/2025 FINDINGS: Limitations: None. Lower thorax: Small right pleural effusion and bilateral basilar airspace consolidation noted. Gastrointestinal tract: Relatively little bowel gas noted. Organs: Visualized organ shadows appear grossly normal. Bones/joints: No fracture, erosion or dislocation. Soft tissues: No abnormality noted. No radiopaque foreign body noted. Tubes, lines and devices: Inferior vena cava filter and bilateral ureteral stents in good position and unchanged. IMPRESSION: 1. Nonspecific relatively gasless abdomen. Consider follow-up CT. 2. Right pleural effusion and bilateral basilar airspace consolidation noted. ACT 112: N/A Electronically signed by Eufemia Swann 03-07-2025 5:17 PM Thoracentesis/Paracentesis US 03/09/25 00:00 ULTRASOUND-GUIDED RIGHT THORACENTESIS CLINICAL HISTORY: Right pleural effusion PROCEDURE: Procedure and risks were explained. Informed consent was obtained. A final timeout was completed. The right posterior thorax was prepped and draped in sterile fashion. 1% lidocaine was utilized for skin anesthesia. Utilizing ultrasound guidance, a 5 Mosotho safety centesis catheter was advanced into the right pleural effusion. Ultrasound images were obtained. A total of 500 mL of pleural fluid was removed and sent to the lab. The catheter was removed and Band-Aid applied. The patient tolerated the procedure well. A chest x-ray will be obtained and vital signs will be monitored postprocedure. IMPRESSION: Ultrasound-guided right thoracentesis as above. Performed, dictated, and signed by Zeferino Hayward PA-C; to be co-signed by Dr. Flip Jose. Electronically signed by: Flip Jose M.D. 03/09/2025 3:53 PM Chest X-Ray 03/09/25 12:51 XR chest 1V not portable HISTORY: 44 years-old Female s/p rt thora status post thoracentesis COMPARISON: Chest radiograph of same day at 5:35 AM TECHNIQUE: AP view of the chest FINDINGS: Hypoinflation. Cardiac silhouette is enlarged. Right IJ Reisaz-t-[id number] catheter in place. Mild linear bibasilar opacities suggestive of atelectasis. Small right pleural effusion has decreased in size from prior. No postprocedural pneumothorax identified. The bones of the chest appear grossly intact. Mild mid to lower thoracic levoscoliosis. IVC filter in place. IMPRESSION: No postprocedural pneumothorax identified. ACT 112: Negative or not required by law. The above report was generated using voice recognition software. It may contain grammatical, syntax or spelling errors. Electronically signed by: Jonn Li M.D. 03/09/2025 1:17 PM Abdomen/Pelvis CT 03/09/25 22:29 Exam(s): CT ABDOMEN + PELVIS Without Contrast EXAM: CT Abdomen and Pelvis Without Intravenous Contrast CLINICAL HISTORY: R flank pain, heparin. OTHER: Other Notes: R flank pain, heparin TECHNIQUE: Axial computed tomography images of the abdomen and pelvis without intravenous contrast. CTDI is 17.77 mGy and DLP is 892.4 mGy-cm. Automated exposure control was utilized for the study. A dose lowering technique was utilized adhering to the principles of ALARA. COMPARISON: CT abdomen and pelvis with contrast dated 03/02/2025 FINDINGS: Lung bases: No significant abnormality. No mass. No consolidation. Pleural space: The bilateral pleural effusions have decreased in size but remain. Mediastinum: Prominent fluid distention of the distal thoracic esophagus. Postsurgical changes of the gastroesophageal junction. ABDOMEN: Liver: The multiple lesions throughout the liver are not well demonstrated on this noncontrast examination. Gallbladder and bile ducts: The gallbladder is mildly distended. There is a solitary noncalcified gallstone noted in the gallbladder with surrounding slight hyperdense material. No ductal dilation. Pancreas: No significant abnormality. No ductal dilation. Spleen: Similar perisplenic fluid. Adrenals: No significant abnormality. No mass. Kidneys and ureters: Bilateral double-J ureteral stents remain in position. However, there is new [id number] right hydronephrosis and proximal right ureterectasis. Stomach and bowel: Evaluation of the bowel is limited without contrast. Similar diffuse fluid-filled small bowel. A right sided ileostomy is noted. Subtotal colectomy remains. Incidental duodenal diverticulum noted, similar to the previous exam. Postsurgical changes also noted along the greater curvature of the stomach consistent with previous gastric reduction surgery. PELVIS: Appendix: Surgically absent. Bladder: The bladder is unremarkable and is stable in appearance, mild- to-moderately distended. No stones. Reproductive: Status post hysterectomy. Subperitoneal space: Similar to minimally increased presacral edema. ABDOMEN and PELVIS: Intraperitoneal space: No significant abnormality. No free air. No significant fluid collection. Bones/joints: No acute fracture. No dislocation. Soft tissues: See above. Mild fat stranding noted along the lateral aspect of the pelvis bilaterally. Vasculature: An IVC filter is noted in position. No abdominal aortic aneurysm. Lymph nodes: No significant abnormality. No enlarged lymph nodes. IMPRESSION: 1. Bilateral double-J ureteral stents remain in position. However, there is new [id number] right hydronephrosis and proximal right ureterectasis. This finding raises the suspicion for potential developing occlusion or insufficiency of the right ureteral stent. However, no significant perinephric abnormality noted bilaterally. 2. Similar perisplenic fluid. 3. Prominent fluid distention of the distal thoracic esophagus. Postsurgical changes of the gastroesophageal junction. The clinical significance of this finding is indeterminate. 4. Additional findings previously identified, as noted above. Electronically signed by: Zeferino Umaña MD 03/09/25 23:[address] 03/15/25 06:12 EXAM: CT head/brain wo con CLINICAL HISTORY: AMS TECHNIQUE: Axial non-contrast CT scan of the brain was performed from the skull base to the high parietal region with axial, sagittal, and coronal reconstructions. One of the following dose reduction techniques was utilized for this exam: automated exposure control, adjustment of the mA and/or kV according to patient size, and use of iterative reconstruction. DLP: 625.80 mGy.cm COMPARISON: None. FINDINGS: Brain Parenchyma: Normal attenuation of the cerebral hemispheres, cerebellum, and brainstem. No evidence of acute infarct, hemorrhage, or mass effect. No abnormal areas of hypo- or hyperattenuation. Ventricular System: Ventricles are normal in size and configuration. No evidence of hydrocephalus or ventricular enlargement. Subarachnoid Spaces: Normal sulci and cisterns. No evidence of subarachnoid hemorrhage or extra-axial fluid collections. Cerebellum and Brainstem: No masses, lesions, or areas of abnormal density. Orbits: Normal appearance of the globes, optic nerves, and extraocular muscles. No evidence of orbital masses or abnormal density. Sinuses: Clear paranasal sinuses. No evidence of sinusitis or mucosal thickening. Mastoid Air Cells: Clear mastoid air cells. No evidence of mastoiditis. Skull: Normal skull morphology. IMPRESSION: 1. Normal CT of the head without contrast. 2. MRI with diffusion may be indicated if there is a clinical possibility of hyperacute or acute infarction. Electronically signed by Jacques Sweeney 03-15-2025 08:12 AM Medications Administered Current Inpatient Medications Al Hydrox/Mg Hydrox/Simethicone (Aluminum/Magnesium/Simeth (Maalox Max) 30 Ml Udc) 15 ml PO Q6H PRN PRN Reason: Indigestion Stop: 04/07/25 14:48 Last Admin: 03/14/25 20:14 Dose: 15 ml Albuterol (Albut/Ipratrop 3mg/0.5mg Neb 3 Ml Vial) 3 ml NEB Q6R PRN; Protocol PRN Reason: sob, wheezing Stop: 04/04/25 18:59 Apixaban (Apixaban 5 Mg Tablet) 5 mg PO BID [facility] Stop: 03/29/25 08:59 Last Admin: 03/02/25 10:18 Dose: Not Given Buspirone HCl (Buspirone 5 Mg Tab) 10 mg PO BID [place] Stop: 03/29/25 08:59 Last Admin: 03/15/25 09:12 Dose: 10 mg Escitalopram Oxalate (Escitalopram Oxalate 20 Mg Tab) 20 mg PO DAILY [facility] Stop: 03/29/25 08:59 Last Admin: 03/15/25 09:12 Dose: 20 mg Famotidine (Famotidine 20 Mg Tab) 20 mg PO BID [place] Stop: 03/29/25 08:59 Last Admin: 03/15/25 09:18 Dose: 20 mg Fentanyl (Fentanyl 50 Mcg/Hr Tdsy) 1 patch TD Q3D [facility] Stop: 03/29/25 13:59 Last Admin: 03/15/25 16:44 Dose: 1 patch Folic Acid (Folic Acid 1 Mg Tab) 1 mg PO QAM [place] Stop: 04/10/25 08:59 Last Admin: 03/15/25 09:13 Dose: 1 mg Heparin Sodium (Porcine) (Heparin 100 Unit/Ml 5ml Flush) 5 ml FLUSH PRN PRN PRN Reason: Flush Stop: 03/30/25 18:43 Prochlorperazine 5 mg/ Syringe 5 mls @ 5 mls/min IV Q6H PRN PRN Reason: Nausea And Vomiting Stop: 03/29/25 07:35 Last Admin: 03/14/25 20:18 Dose: 5 mls/min Lorazepam 0.5 mg/ Syringe 0.5 mls @ 2 mls/min IV Q8H PRN PRN Reason: Anxiety/Agitation Stop: 04/01/25 00:19 Last Admin: 03/09/25 13:41 Dose: 2 mls/min Pantoprazole Sodium (Protonix) 40 mg in 10 mls @ 5 mls/min IV BID [facility] Stop: 04/01/25 20:59 Last Admin: 03/15/25 09:18 Dose: 5 mls/min Sodium Chloride (Nss) 1,000 mls @ 80 mls/hr IV .[id number] [facility] Stop: 03/15/25 19:29 Last Admin: 03/15/25 07:23 Dose: 80 mls/hr Vancomycin HCl 1,250 mg/ (Sodium Chloride) 275 mls @ 91.667 mls/hr IV Q24H [facility] Stop: 03/19/25 22:00 Lorazepam (Lorazepam 0.5 Mg Tab) 0.5 mg PO TID PRN PRN Reason: Anxiety Stop: 03/29/25 04:59 Last Admin: 03/15/25 10:27 Dose: 0.5 mg Methocarbamol (Methocarbamol 500 Mg Tablet) 500 mg PO TID PRN PRN Reason: spasm Stop: 04/03/25 04:12 Last Admin: 03/15/25 09:12 Dose: 500 mg Miscellaneous (Remove Lidoderm Patch) 1 each N/A DAILY@2100 [facility] Stop: 04/09/25 20:59 Last Admin: 03/14/25 20:17 Dose: Not Given Miscellaneous (Fentanyl Patch Remove & Waste) 1 each N/A Q3D [facility] Stop: 04/14/25 13:59 Last Admin: 03/15/25 16:43 Dose: 1 each Miscellaneous (Check Fentanyl Patch Placement) 1 each N/A QS [facility] Stop: 04/14/25 15:59 Last Admin: 03/15/25 16:45 Dose: 1 each Miscellaneous Information (Vancomycin Consult Active) 1 each N/A UD PRN PRN Reason: Consult Stop: 04/14/25 13:25 Morphine Sulfate (Morphine Sulfate 10 Mg/0.5 Ml Udp) 5 mg PO Q3H PRN PRN Reason: Pain Stop: 03/25/25 16:32 Last Admin: 03/15/25 10:53 Dose: 5 mg Ondansetron HCl (Ondansetron Inj 2 Mg/Ml 2 Ml Vial) 4 mg IV Q6H PRN PRN Reason: Nausea Stop: 03/29/25 04:59 Last Admin: 03/15/25 10:27 Dose: 4 mg Ondansetron HCl (Ondansetron 4 Mg Od Tab) 4 mg PO Q6H PRN PRN Reason: Nausea Stop: 04/10/25 16:32 Last Admin: 03/13/25 13:21 Dose: 4 mg Phenol (Chloraseptic (Phenol) 1.4% Soln 180 Ml Btl) 2 sprays MT Q6H PRN PRN Reason: throat pain Stop: 03/31/25 09:26 Last Admin: 03/01/25 12:33 Dose: 2 sprays Pregabalin (Pregabalin 50 Mg Cap) 50 mg PO BID [facility] Stop: 03/29/25 08:59 Last Admin: 03/15/25 09:18 Dose: 50 mg Promethazine HCl (Promethazine Hcl 12.5 Mg Supp) 12.5 mg HI Q6H PRN PRN Reason: Nausea And Vomiting Stop: 04/10/25 16:32 Sucralfate (Sucralfate 1 Gm Tab) 1 gm PO QID [facility] Stop: 04/04/25 16:59 Last Admin: 03/15/25 16:46 Dose: 1 gm PG Care Time/CCT Total # of Minutes Spent Total Time Spent with Patient: Total time spent is greater than 50% in coordination of care (as documented) at patient's floor/unit and/or counseling patient: Coding [place] [address] SUB INP/OBS CARE 2/35MIN Patient Type Established History Expanded Problem Focused Exam Expanded Problem Focused Medical Decision Making Moderate Complexity Diagnoses Generalized abdominal pain R10.84 Abdominal location: generalized Vomiting of fecal matter with nausea R11.13 Vomiting type: vomiting of fecal matter Palliative care by specialist Z51.5 Depression with anxiety F41.8 Colostomy present Z93.3 Cancer related pain G89.3 Adenocarcinoma, colon C18.9 (1) Abdominal pain Abdominal location: generalized Qualified Code(s): R10.84 - Generalized abdominal pain (2) Nausea & vomiting Vomiting type: vomiting of fecal matter Qualified Code(s): R11.13 - Vomiting of fecal matter
[2025-03-15] MEDS ORDERED: VANCOMYCIN HCL 1,250 MG in SODIUM CHLORIDE 0.9% 250 ML IV SCH (22:00)
[2025-03-15] MEDS: VANCOMYCIN HCL 1,250 MG in SODIUM CHLORIDE 0.9% 250 ML IV SCH (22:43)
[2025-03-16] MEDS ORDERED: PANTOPRAZOLE BOLUS/DRIP IV STA (02:38)
[2025-03-16] MEDS: PANTOprazole 40 MG in DEXTROSE 5% MINI-B 100 ML IV SCH (03:31)
[2025-03-16] MEDS: D5W AND 1/2NSS 1,000 ML IV SCH (04:39)
--- NOTE | 2025-03-16 05:37 | Ultrasound Report ---
EXAM: US venous doppler LE RT CLINICAL HISTORY: Edema, DVT TECHNIQUE: Ultrasound examination of right lower extremity veins was performed in real-time and duplex. One or more of the following were performed: spectral analysis, resistive index, waveform analysis, and pulsed Doppler. COMPARISON: 02/16/2024 FINDINGS: Edema is identified in the right lower extremity. All the veins appear dilated showing echogenic occlusive thrombus in all veins of the right lower extremity, involving right common femoral, great saphenous, deep and superficial femorals, popliteal, gastrocnemius, posterior tibial peroneal and anterior tibial veins. Limited evaluation of the right common iliac veins due to colostomy bag. Compression and Augmentation: Loss of compression. IMPRESSION: Acute DVT detected in right common femoral, superficial femoral, popliteal, gastrocnemius, posterior tibial, anterior tibial and peroneal veins at the time of examination (interval new). Disclaimer: DVT could be missed early in the disease when clot burden is minimal. For patients with moderate and high pretest probability of DVT and negative ultrasound, the [place] [employer] clinical guidelines recommend testing with a D-dimer assay or repeat ultrasound in 5-7 days. If symptoms worsen, the Society of radiologists in ultrasound recommends repeating ultrasound even earlier. Electronically signed by Jacques Sweeney 03-16-2025 05:36 AM
[2025-03-16 06:12] LABS: Hematocrit (blood only) 27.2 % (37.0-47.0); Hemoglobin 8.0 g/dL (12.0-16.0)
[2025-03-16 06:26] LABS: Alanine Aminotransferase 10.0 U/L (7-52); Albumin Level 2.9 gm/dl (3.4-5.0); Alkaline Phosphatase 265.0 U/L (34-104); Bilirubin,Total 0.4 mg/dl (0.2-1.0); Creatinine Clr Calc Pharmacy 41.3 ml/min; Total Protein 6.3 gm/dl (6.0-8.3)
[2025-03-16 06:47] LABS: INR 1.4 (0.9-1.1); Partial Thromboplastin Time 28 Seconds (21-31); Prothrombin Time 14.5 Seconds (9.0-12.0)
--- NOTE | 2025-03-16 08:23 | Hospitalist Progress Note ---
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 difficile s/p treatment, anxiety and depression, iron deficiency anemia presents with abdominal pain. Patient is having ongoing pain for several weeks now. This is her third admission since last 1 month. Patient is status post right ureteral stent on and supposed to follow-up outpatient for stent removal. She was on Bactrim and amoxicillin for postop hepatic abscess, says no longer on antibiotics. She was again admitted 06 of February for small bowel obstruction and was discharged on 02/08/2025. Patient is followed with palliative care. Currently on p.o. Dilaudid 4 mg every 3 hours as needed for pain. Patient says Dilaudid is causing her nauseous. States abdominal pain is not getting better. She is having a lot of nausea and vomiting. She says not eating because of nausea. She is being managed for the following: Hypotension,increased confusion and decreased respiration: R/O Sepsis Her condition deteriorated with decreasing blood pressure of systolic 80 and decreased respiration with apneic spells She was started on intravenous fluid bolus Discussed with the palliative in the patient was made DNR/DNI Discussed with the open hearth furnace laborer who evaluated the patient and the patient was transferred to ICU for continued management She was also started with ertapenem this morning that were changed to meropenem as per open hearth furnace laborer and she has been on intravenous vancomycin ongoing PPN will be started soon If there is no improvement of her condition following the next 3 days further evaluation by the palliative team will be done and most likely patient will be for comfort care only If the condition is worsened but stable an MRI of the brain could be done to rule out any metastatic disease/stroke Metastatic colon cancer Her condition has been deteriorating Has been very difficult to control the pain and also nausea vomiting She has been confused with off-and-on deterioration Has developed acute DVT right lower extremity and we cannot continue Eliquis which was restarted recently Her pain medications was adjusted by palliative with increasing dose of fentanyl to 50 mcg and also has been getting oral morphine 5 mg every 4 hourly as needed Remains extremely weak and lethargic to be discharged Her antibiotic can be discontinued today for parapneumonic effusion and infection Prognosis remains very poor Palliative care will reevaluate this morning today Appreciate palliative input and recommendationthe patient was made DNR/DNI after discussion with the He will be started on intravenous PPN to see if there is any improvement of her overall condition Discussed with the oncologist by the palliative teamif the condition improves subsequently she may be discharged and oncologist will try for limited chemo for palliation If the condition is worse then she can transfer to comfort care P he artial SBO: Patient presents with abdominal pain and persistent nausea and vomiting with decreased p.o. intake. Metastatic colon cancer Patient presents with abdominal pain, nausea, vomiting, decreased p.o. intake. Status post EGD 03/02: Impression Normal duodenum, a sleeve gastrectomy was found with healthy-appearing mucosa, erythematous mucosa in the stomach biopsies, LA grade D reflux esophagitis with bleeding biopsies, in light of large amount of retained fluid in the stomach and esophagus at least some degree of partial obstruction motility is suspected likely related to overall tumor burden Pathology report reports of stomach biopsy, esophagus biopsy came back to be negative for any malignancy Pt reports better control of N, V. Is tolerating full liq now. Continue on Compazine, Zofran and Phenergan as needed for nausea/vomiting. General surgery on board, recs are full liq diet and reglan Continue with PPI. and multivitamins with minerals, IV thiamine, IV folic acid. Remains weak and lethargic with ongoing nausea and vomiting at times Minimal abdominal pain since last night Remains medically stablesurgery service signed off Remains weak and lethargic and awaiting PT and OT evaluation Was advised to keep appointments/make appointments with her oncologist and surgery team at [facility] as soon as possible Remains stable with ongoing symptoms of nausea, vomiting and abdominal pain Pain medicine has been changed to oral morphine and antiemetics has been changed to ODT Zofran She remains very weak and lethargic and symptomatic to be discharged She remains stable stable she could be given her multiple comorbid medical conditions including colon cancer She is not not yet ready to be discharged Advised to take medicine sublingually and also apply rectally to avoid throwing off of from nausea Not been able to discharge today with increasing confusion and lethargy Anemia s/p EGD - see above, c/w iv ppi. s/p 1 unit PRBC. Monitor HnH Hemoglobin dropped to 7.3 and the patient remains generally weak and lethargic No evidence of acute blood loss Will give another unit of PRBC for ongoing symptoms of anemia Her hemoglobin went up to 8.8 following 1 unit of blood transfusion Hemoglobin remains stable following blood transfusion Hemoglobin remains stable Discussed with the and the patient and will restart Eliquis from today Hemoglobin remains stable at 8.0 today Appreciated GI Reevaluation Per prior attending: Patient's surgical oncologist Dr. Johnson reached out on March 01, 2025. I provided update on patient's current condition. He reports that unfortunately patient does have recurrence of colon cancer given elevated tumor markers. The initial plan was reversal of the colostomy- which will be kept on hold for the time being as it will delay patient to obtain chemotherapy. He also asked me to discuss with patient if she wants to follow- up with local oncology for chemotherapy. I updated the patient about my discussion with her surgical oncologist on March 02, 2025; she verbalized understanding. She wants to follow-up at [facility] oncology. She reports that PET/CT is still not done yet; would like to follow-up with them to have it done. Acute UTI/ Possible right pyelonephritis Abdominal pain, hydroureteronephrosis Status post CTAP with IV contrast 03/02: Noted multifocal pneumonia in the lung bases bilaterally. Noted small bowel obstruction. Noted findings concerning for possible right pyelonephritis. Of note, patient recently presented with right-sided abdominal pain status post right ureteral stent placement February 03, 2025 with improvement in the pain. Admitting CTAP with mild left-sided hydronephroureterosis Patient underwent cystoscopy with left ureteral stent placement February 08, 2025, reports improvement in her left abdominal pain. Urine culture grew Salma multiple times, given recent ureteral procedure; pt started on fluconazole for candiduria. s/p 8 d fluconazole, stopped 03/08. Appreciate ID eval. QTc 03/08 - 443 Pt now with hematuria, UCx has been sent, if Hematuria continues will likely recall uro. Has had hematuria with increasing pain last night and CT scan did show questionable stent obstruction with new hydronephrosis Hematuria seems to be improving as of this morning Patient remains n.p.o. and for further evaluation by the urologist today urine culture was sent and started on intravenous ertapenem Ertapenem will be discontinued Multifocal pneumonia: Concern for mutlifocal pna on lung bases noted on 03/02 CTAP with IV contrast. 03/05 CT chest w/ increasing pneumonia and increased pleural effusion. MRSA +ve. Sp Cx +ve for MRSA. Pulm consulted, appreciate recs. ID evaled 03/08, recs vanc for 7 days and if being dc'd consider po linezolid to complete. s/p rt thoracentesis - 500 ml out, f/u fluid studies, cx and pathology reports. Parapneumonic effusionadvised to continue antibiotic for longer duration as per the eyeglass lens grinder Pleural fluid cytology came back positive for metastatic adenocarcinoma of colonresidual carcinoma in the block was sent to [facility] panel and that report will be available later Will give linezolid to complete the course of 14 days in total on discharge Linezolid cannot be given due to interaction with too many medications that she has been currently taking Will continue with intravenous vancomycin for the next few days prior to discharge She cannot have Zyvox due to too much interactions with her current medications so plan to give her for a day or 2 on IV vancomycin and send her home on oral clindamycin on Saturday for 2 or 3 more days to continue Remains on vancomycin and Zyvox could not be given so we will change to oral clindamycin on discharge Will continue vancomycin with adjusted chest dose today and tomorrow prior to discharge hopefully IV vancomycin was continued and planned to stop today . History of PE: On Eliquis- resumed after EGD, now on hep drip as pt not able to take po. Eliquis restarted but is on hold due to bleeding from the ostomy site Anxiety and depression: On Lexapro, BuSpar and Ativan as needed. c/w as able. GERD: on protonix-continue DVT prophylaxis: On-Eliquis is on hold Will try SCDs Disposition: pcu/tele floor Full code. Please note the above document was generated using voice recognition software. It may contain grammatical, syntax or spelling errors. Any formal questions or concerns about the content, text or information contained within the body of this dictation should be directly addressed to the provider for clarification Admission and Anticipated Discharge Date Admission Date: February 27, 2025 Subjective 03/10/2025 The patient was seen and examined in telemetry unit She has been complaining of nausea and occasional vomiting Also increasing pain in the thoracentesis site on the right chest wall Denies any shortness of breath at rest but has been requiring 3 L to maintain saturation 03/11/2025 The patient was seen and examined in telemetry unit She remains weak and lethargic Complains of minimal pain, nausea and vomiting at times Has been tolerating current diet Awaiting PT and OT evaluation 03/12/2025 The patient was seen and examined in telemetry unit She remains weak and lethargic Still complains nausea and vomiting with abdominal pain No abdominal distention 03/13/2025 The patient was seen and examined in telemetry unit She remains weak and lethargic and still has nausea with occasional vomiting Still complains of abdominal pain but a little better with Oramorph 03/14/2025 The patient was seen and examined in telemetry unit She remains symptomatic with increasing pain, nausea and vomiting 03/15/2025 The patient was seen and examined in telemetry unit in the presence of the She remains weak and lethargic but looks much more bright Still complains to have burning in the esophagus and tries to assist with vomiting Pain seems to be otherwise controlled but referring IV Dilaudid over oral morphine Minimal jerks involving the lower extremities Has had acute confusion last night CT of the head is negative received some IV fluid for hypotension 03/16/2025 Patient was seen and examined in telemetry unit She has been deteriorating and was noted to be very confused last night, increasing pain of the abdomen and also noted to have blood in the ostomy bag She also was found to have DVT right leg This morning she remains confused and extremely weak and lethargic Review of Systems Review of Systems: Still has pain in the abdomen and remains confused Physical Exam Physical Exam: Lying in bed without any acute distress Constitutional: + ill appearing and average body habitus Eyes: PERRL, conjunctivae normal, anicteric sclerae ENMT: external ear and nose normal, oropharynx normal Neck: trachea midline, no thyromegaly Respiratory: + respiratory distress ( minimal respira tory distress at rest) Auscultation: + diminished lung sounds ( right base mainly with occasional crackles) Cardiovascular: Rate/Rhythm: regular rate, regular rhythm and + tachycardic Heart Sounds: normal S1 and normal S2; no murmur Extremities: + edema (Right lower extremity is swollen compared to the left) Gastrointestinal (Abdomen): Inspection/Auscultation: normal bowel sounds; abdomen not distended Percussion/Palpation: + abdomen tender and abdomen soft Ostomy bag is draining but no fresh blood in it Musculoskeletal: No acute arthritis involving any of the joint Neurologic: normal touch/pain/proprioception and moves all extremities; no focal motor deficits Lymphatic: no cervical or axillary lymphadenopathy Results & Data Results & Data Vital Signs (Past 12 Hours) Vital Signs Temp Pulse Pulse Resp BP Pulse Ox O2 Del Method 03/16/25 08:04 36.9 C 123 H 19 101/77 96 Room Air 03/16/25 05:38 120 H 03/16/25 02:47 37.1 C 126 H 115/80 94 Room Air 03/15/25 23:12 36.6 C 122 H 20 117/88 97 Room Air 03/15/25 21:48 121 H Laboratory Results Short CBC 03/16/25 Range/Units 05:27 Hgb 8.0 L (12.0-16.0) g/dL Hct 27.2 L (37.0-47.0) % BMP 03/16/25 05:27 Creatinine 1.64 H D Liver Function 03/16/25 Range/Units 05:27 Total Bilirubin 0.4 (0.2-1.0) mg/dl Direct Bilirubin 0.1 (0-0.2) mg/dl AST 23 (13-39) U/L ALT 10 (7-52) U/L Alkaline Phosphatase 265 H (34-104) U/L Albumin 2.9 L (3.4-5.0) gm/dl Medications Administered Current Inpatient Medications Al Hydrox/Mg Hydrox/Simethicone (Aluminum/Magnesium/Simeth (Maalox Max) 30 Ml Udc) 15 ml PO Q6H PRN PRN Reason: Indigestion Stop: 04/07/25 14:48 Last Admin: 03/14/25 20:14 Dose: 15 ml Albuterol (Albut/Ipratrop 3mg/0.5mg Neb 3 Ml Vial) 3 ml NEB Q6R PRN; Protocol PRN Reason: sob, wheezing Stop: 04/04/25 18:59 Apixaban (Apixaban 5 Mg Tablet) 5 mg PO BID [place] Stop: 03/29/25 08:59 Last Admin: 03/15/25 20:20 Dose: Not Given Buspirone HCl (Buspirone 5 Mg Tab) 10 mg PO BID [facility] Stop: 03/29/25 08:59 Last Admin: 03/15/25 20:11 Dose: 10 mg Escitalopram Oxalate (Escitalopram Oxalate 20 Mg Tab) 20 mg PO DAILY [facility] Stop: 03/29/25 08:59 Last Admin: 03/15/25 09:12 Dose: 20 mg Famotidine (Famotidine 20 Mg Tab) 20 mg PO BID [place] Stop: 03/29/25 08:59 Last Admin: 03/15/25 20:11 Dose: 20 mg Fentanyl (Fentanyl 50 Mcg/Hr Tdsy) 1 patch TD Q3D [place] Stop: 03/29/25 13:59 Last Admin: 03/15/25 16:44 Dose: 1 patch Folic Acid (Folic Acid 1 Mg Tab) 1 mg PO QAM [facility] Stop: 04/10/25 08:59 Last Admin: 03/15/25 09:13 Dose: 1 mg Heparin Sodium (Porcine) (Heparin 100 Unit/Ml 5ml Flush) 5 ml FLUSH PRN PRN PRN Reason: Flush Stop: 03/30/25 18:43 Prochlorperazine 5 mg/ Syringe 5 mls @ 5 mls/min IV Q6H PRN PRN Reason: Nausea And Vomiting Stop: 03/29/25 07:35 Last Admin: 03/14/25 20:18 Dose: 5 mls/min Lorazepam 0.5 mg/ Syringe 0.5 mls @ 2 mls/min IV Q8H PRN PRN Reason: Anxiety/Agitation Stop: 04/01/25 00:19 Last Admin: 03/09/25 13:41 Dose: 2 mls/min Vancomycin HCl 1,250 mg/ (Sodium Chloride) 275 mls @ 91.667 mls/hr IV Q24H [facility] Stop: 03/19/25 22:00 Last Infusion: 03/16/25 01:43 Dose: Infused Pantoprazole Sodium 40 mg/ (Dextrose) 100 mls @ 20 mls/hr IV Q5H [facility] Stop: 04/15/25 02:59 Last Admin: 03/16/25 07:28 Dose: 8 mg/hr, 20 mls/hr Dextrose/Sodium Chloride (D5w And 1/2nss) 1,000 mls @ 80 mls/hr IV .[id number] [facility] Stop: 03/19/25 04:29 Last Admin: 03/16/25 04:39 Dose: 80 mls/hr Lorazepam (Lorazepam 0.5 Mg Tab) 0.5 mg PO TID PRN PRN Reason: Anxiety Stop: 03/29/25 04:59 Last Admin: 03/15/25 10:27 Dose: 0.5 mg Methocarbamol (Methocarbamol 500 Mg Tablet) 500 mg PO TID PRN PRN Reason: spasm Stop: 04/03/25 04:12 Last Admin: 03/15/25 09:12 Dose: 500 mg Miscellaneous (Remove Lidoderm Patch) 1 each N/A DAILY@2100 [facility] Stop: 04/09/25 20:59 Last Admin: 03/15/25 20:34 Dose: Not Given Miscellaneous (Fentanyl Patch Remove & Waste) 1 each N/A Q3D [facility] Stop: 04/14/25 13:59 Last Admin: 03/15/25 16:43 Dose: 1 each Miscellaneous (Check Fentanyl Patch Placement) 1 each N/A QS [facility] Stop: 04/14/25 15:59 Last Admin: 03/16/25 07:28 Dose: 1 each Miscellaneous Information (Vancomycin Consult Active) 1 each N/A UD PRN PRN Reason: Consult Stop: 04/14/25 13:25 Morphine Sulfate (Morphine Sulfate 10 Mg/0.5 Ml Udp) 5 mg PO Q3H PRN PRN Reason: Pain Stop: 03/25/25 16:32 Last Admin: 03/16/25 03:19 Dose: 5 mg Ondansetron HCl (Ondansetron Inj 2 Mg/Ml 2 Ml Vial) 4 mg IV Q6H PRN PRN Reason: Nausea Stop: 03/29/25 04:59 Last Admin: 03/15/25 10:27 Dose: 4 mg Ondansetron HCl (Ondansetron 4 Mg Od Tab) 4 mg PO Q6H PRN PRN Reason: Nausea Stop: 04/10/25 16:32 Last Admin: 03/13/25 13:21 Dose: 4 mg Phenol (Chloraseptic (Phenol) 1.4% Soln 180 Ml Btl) 2 sprays MT Q6H PRN PRN Reason: throat pain Stop: 03/31/25 09:26 Last Admin: 03/01/25 12:33 Dose: 2 sprays Pregabalin (Pregabalin 50 Mg Cap) 50 mg PO BID [facility] Stop: 03/29/25 08:59 Last Admin: 03/15/25 20:11 Dose: 50 mg Promethazine HCl (Promethazine Hcl 12.5 Mg Supp) 12.5 mg IN Q6H PRN PRN Reason: Nausea And Vomiting Stop: 04/10/25 16:32 Sucralfate (Sucralfate 1 Gm Tab) 1 gm PO QID [facility] Stop: 04/04/25 16:59 Last Admin: 03/15/25 20:12 Dose: 1 gm (1) Abdominal pain Abdominal location: generalized Qualified Code(s): R10.84 - Generalized abdominal pain
--- NOTE | 2025-03-16 09:22 | Palliative Care Progress Note ---
Date of Service March 16, 2025 Assessment & Plan (1) Cancer related pain: Plan: Caution for opioid related confusion so will reduce TDF by 50% to 25mcg and continue prn MS for BTp Hold for somnolence or RR less than 14; please document RR with each dose admini stration. (2) Abdominal pain: Plan: See #1 above (3) Nausea & vomiting: Plan: no change to current meds (4) Advanced care planning/counseling discussion: Plan: A 60min face to face ACP meeting was held with Deanna and her , Ronny at bedside together with Dr Shukla from primary team. Advance illness planning conversations are conducted to review goals and expectations, support shared decision-making, and engage in disease specific advance care planning. This type of advance care planning is sometimes referred to as 'preparedness planning. It is used to review the risks and benefits of offered therapy, elicit and deepen understanding of the underlying illness and therapeutic options, ensure adequate psychosocial support, address existential concerns and coping, and engage in end-of-life planning. Preparedness planning is not meant to replace informed consent discussions. Palliative medicine plays a role in the process of deepening a patients understanding of this specific medical intervention and ensuring this treatment aligns with their goals of care remains a central tenet of the planning conversation. They are going to discuss code status. I advocated for no code given her acuity and progressive cancer but also advised this does not equate with not treating things acutely as needed. We reviewed CPR survival: Only about 10% of patients who have [id number] sudden cardiac arrest survive to hospital discharge, with many survivors having neurologic impairment. This rate is even lower among patients with serious coexisting conditions, ie chance of survival to hospital discharge for in-hospital CPR in older people is low to moderate (15%) and decreases with age, comorbidities, performance status and frailty: for pts > 70 yo, more than half of the patients who initially survived resuscitation in the hospital before hospital discharge. The pooled survival to discharge after in-hospital CPR was 18% for patients between 70 and 79 years old, 15% for patients between 80 and 89 years old and 11% for patients of 90 years and older. (Saleem CHICAS, Mario LJ, Jonatan F, et al. Trends in short- and long-term survival among [id number] cardiac arrest patients alive at hospital arrival. Circulation 2014;130:6594-6311. AND Emil Beltran, Magno T, Kaykay R, et al. Performance of clinical risk scores to predict mortality and neurological outcome in cardiac arrest patients. Resuscitation 2019;136:21-29.) We agreed to a time limited, 72 hr trial of PPN. I told them if no better in 72 hr then likely no benefit and/or if any acute worsening in that 3 day trial then also a sign it is not helping. I updated them that I am waiting for the oncologist to call me back and will update when/if he does. They will let nursing / Dr Shukla or me know re: code status - they have a lot to discuss - their kids are 17,15, 10 and 8. She is not prepared for mortality. They have never discussed anything in an EOL what-if space. (5) Palliative care by specialist: (6) Adenocarcinoma, colon: (7) Altered mental status: (8) DVT (deep venous thrombosis): Plan * As above * Deanna would be a good candidate for [employer] [facility] however she and have had zero conversations about mortality/advanced illness preparation, so for now I am not offering this service and will continue the ACP dialogue with them and re evaluate timing. * She is being followed by [facility] * They have a strong ned and also [facility] They are aware I have reached out to him, Dr Read, and am awaiting return call. Thank you for allowing us to participate in the ongoing care of this patient. Please page with any additional concerns. Mikaela Hurst DNP Director, Palliative Medicine Admission and Anticipated Discharge Date Admission Date: February 27, 2025 Subjective Deanna is with AMS RLE edema is worsening- no measurements yet; +DVT but due to rectal bleed cannot give anticoagulant 03/16/25 - Duplex: Edema is identified in the right lower extremity. All the veins appear dilated showing echogenic occlusive thrombus in all veins of the right lower extremity, involving right common femoral, great saphenous, deep and superficial femorals, popliteal, gastrocnemius, posterior tibial peroneal and anterior tibial veins. Limited evaluation of the right common iliac veins due to colostomy bag. Compression and Augmentation: Loss of compression. IMPRESSION: Acute DVT detected in right common femoral, superficial femoral, popliteal, gastrocnemius, posterior tibial, anterior tibial and peroneal veins at the time of examination (interval new). ++Tachy, SpO2 96 on room air lethargic - aware of name, not alert to place or time Review of Systems Review of Systems: Unobtainable due to cognitive status Physical Exam Constitutional: + ill appearing, + physical limitations, + frail appearing, cooperative, + diaphoretic, + lethargic and + malnourished Eyes: PERRL and normal accommodation ENMT: Ears: no hearing impairment Nose: + nasal discharge (clear rhinitis) and + dry nasal mucous membranes Mouth: + dry oral mucous membranes Throat: + postnasal drainage Neck: normal visual inspection and trachea midline; neck nontender Thyroid: no thyromegaly Respiratory: able to speak in complete sentences and symmetric chest movement; no cough Cardiovascular: Rate/Rhythm: + tachycardic Gastrointestinal (Abdomen): Percussion/Palpation: + abdomen tender and abdomen soft Musculoskeletal: gen weakness Skin: +pallor, waxy appearing Neurologic: Alert to self - "Name noah Huerta" place - [facility] Where is [facility] x2 What month is it - March What year is it - March x 3 She recognized her Results & Data Vital Signs (Past 12 Hours) Vital Signs Temp Pulse Pulse Resp BP Pulse Ox O2 Del Method 03/16/25 08:04 36.9 C 123 H 19 101/77 96 Room Air 03/16/25 07:21 Room Air 03/16/25 05:38 120 H 03/16/25 02:47 37.1 C 126 H 115/80 94 Room Air 03/15/25 23:12 36.6 C 122 H 20 117/88 97 Room Air 03/15/25 21:48 121 H Laboratory Results 03/16/25 03/16/25 03/15/25 Range/Units 05:27 01:43 06:49 WBC (4.8-10.8) K/ul RBC (4.20-5.40) M/uL Hgb 8.0 L (12.0-16.0) g/dL Hct 27.2 L (37.0-47.0) % MCV (80.0-100.0) fL MCH (25.0-34.0) pg MCHC (32.0-36.0) g/dL RDW Std Deviation (36.4-46.3) fL RDW Coeff of Mita (11.5-14.5) % Plt Count (130-400) K/uL MPV (9.4-12.4) fL Immature Gran % (Auto) % Neut % (Auto) % Lymph % (Auto) % [place] % (Auto) % Eos % (Auto) % Baso % (Auto) % Neut # (Auto) (1.40-6.50) K/uL Lymph # (Auto) (1.20-3.40) K/uL [place] # (Auto) (0.11-0.59) K/uL Eos # (Auto) (0.00-0.50) K/uL Baso # (Auto) (0.00-0.20) K/uL Immature Gran # (Auto) (0.01-0.20) K/uL Polychromasia PT 14.5 H (9.0-12.0) Seconds INR 1.4 H (0.9-1.1) APTT 28 (21-31) Seconds PTT Ratio 1.0 Heparin Anti-Xa, Unfract (0.3-0.7) IU/ml VBG pH 7.41 (7.36-7.41) VBG pCO2 43 (38-50) mmHg VBG pO2 < 20 mmHg VBG HCO3 27 mmol/L VBG O2 Saturation < 60.0 % VBG Base Excess 2.4 mEq/L Sodium (136-145) mmol/L Potassium (3.5-5.1) mmol/L Chloride (98-107) mmol/L Carbon Dioxide (21-32) mmol/L Anion Gap (3-11) BUN (6-23) mg/dl Creatinine 1.64 H D (0.6-1.2) mg/dl Est Cr Clr Drug Dosing 41.3 ml/min eGFR 39.59 BUN/Creatinine Ratio (10-20) Glucose (70-99(Fasting)) mg/dl POC Glucose (70-99) mg/dl Calcium (8.6-10.3) mg/dl Phosphorus (2.5-4.9) mg/dl Magnesium (1.7-2.4) mg/dl Total Bilirubin 0.4 (0.2-1.0) mg/dl Direct Bilirubin 0.1 (0-0.2) mg/dl AST 23 (13-39) U/L ALT 10 (7-52) U/L Alkaline Phosphatase 265 H (34-104) U/L Total Protein 6.3 (6.0-8.3) gm/dl Albumin 2.9 L (3.4-5.0) gm/dl Globulin (2.5-4.0) gm/dl Albumin/Globulin Ratio (0.9-2) Urine Color Urine Appearance (Clear) Urine pH (4.5-7.5) Ur Specific Kellogg (1.000-1.030) Urine Protein (Negative) Urine Glucose (UA) (Negative) Urine Ketones (Negative) Urine Blood (Negative) Urine Nitrite (Negative) Urine Bilirubin (Negative) Urine Urobilinogen (Negative) Ur Leukocyte Esterase (Negative) Urine WBC (Auto) (0-5) /hpf Urine RBC (Auto) (0-2) /hpf U Hyaline Cast (Auto) (0-2) /lpf U Epithel Cells (Auto) (0-2) /hpf Urine Bacteria (Auto) (None Seen) Urine Mucus (None Prsent) Urine Comment Fluid Neutrophils % % Fluid Lymphocytes % % Fluid Meso/Macro/[place]con[place] % % Fluid Slide Review Fluid Comment Pleural Fluid Source Pleural Color Pleural Appearance Pleural pH (7.3-7.4) Pleural WBC (Auto) /uL Pleural RBC (Auto) /uL Pleural Total Protein gm/dl Pleural LDH Pleural Glucose mg/dl Pleural Amylase U/L Pleural Cholesterol mg/dL Gastric Fluid pH 4 Gastric Occult Blood Positive A (Negative) Random Vancomycin (10-20) mcg/ml Misc Genetic Test Blood Type Antibody Screen Crossmatch 03/15/25 03/15/25 03/14/25 Range/Units 06:46 06:00 05:54 WBC 7.66 7.99 (4.8-10.8) K/ul RBC 3.41 L 3.49 L (4.20-5.40) M/uL Hgb 8.8 L 9.0 L (12.0-16.0) g/dL Hct 28.7 L 28.9 L (37.0-47.0) % MCV 84.2 82.8 (80.0-100.0) fL MCH 25.8 25.8 (25.0-34.0) pg MCHC 30.7 L 31.1 L (32.0-36.0) g/dL RDW Std Deviation 56.1 H 56.6 H (36.4-46.3) fL RDW Coeff of Mita 18.5 H 18.7 H (11.5-14.5) % Plt Count 180 184 (130-400) K/uL MPV 10.4 10.2 (9.4-12.4) fL Immature Gran % (Auto) 0.8 0.4 % Neut % (Auto) 75.4 75.5 % Lymph % (Auto) 9.0 9.1 % [place] % (Auto) 12.9 13.1 % Eos % (Auto) 1.6 1.5 % Baso % (Auto) 0.3 0.4 % Neut # (Auto) 5.78 6.03 (1.40-6.50) K/uL Lymph # (Auto) 0.69 L 0.73 L (1.20-3.40) K/uL [place] # (Auto) 0.99 H 1.05 H (0.11-0.59) K/uL Eos # (Auto) 0.12 0.12 (0.00-0.50) K/uL Baso # (Auto) 0.02 0.03 (0.00-0.20) K/uL Immature Gran # (Auto) 0.06 0.03 (0.01-0.20) K/uL Polychromasia PT (9.0-12.0) Seconds INR (0.9-1.1) APTT (21-31) Seconds PTT Ratio Heparin Anti-Xa, Unfract (0.3-0.7) IU/ml VBG pH (7.36-7.41) VBG pCO2 (38-50) mmHg VBG pO2 mmHg VBG HCO3 mmol/L VBG O2 Saturation % VBG Base Excess mEq/L Sodium 137 137 (136-145) mmol/L Potassium 4.4 4.5 (3.5-5.1) mmol/L Chloride 97 L 96 L (98-107) mmol/L Carbon Dioxide 26 27 (21-32) mmol/L Anion Gap 14 H 14 H (3-11) BUN 28 H 27 H (6-23) mg/dl Creatinine 1.17 1.18 1.07 (0.6-1.2) mg/dl Est Cr Clr Drug Dosing 57.7 57.3 63.3 ml/min eGFR 59.38 58.77 66.10 BUN/Creatinine Ratio 23.9 H 22.9 H (10-20) Glucose 102 H 105 H (70-99(Fasting)) mg/dl POC Glucose (70-99) mg/dl Calcium 8.6 8.7 (8.6-10.3) mg/dl Phosphorus 4.0 (2.5-4.9) mg/dl Magnesium 2.2 2.3 (1.7-2.4) mg/dl Total Bilirubin 0.5 0.5 (0.2-1.0) mg/dl Direct Bilirubin (0-0.2) mg/dl AST 22 22 (13-39) U/L ALT 10 10 (7-52) U/L Alkaline Phosphatase 260 H 276 H (34-104) U/L Total Protein 6.2 6.5 (6.0-8.3) gm/dl Albumin 2.9 L 3.1 L (3.4-5.0) gm/dl Globulin 3.3 3.4 (2.5-4.0) gm/dl Albumin/Globulin Ratio 0.9 0.9 (0.9-2) Urine Color Urine Appearance (Clear) Urine pH (4.5-7.5) Ur Specific Kellogg (1.000-1.030) Urine Protein (Negative) Urine Glucose (UA) (Negative) Urine Ketones (Negative) Urine Blood (Negative) Urine Nitrite (Negative) Urine Bilirubin (Negative) Urine Urobilinogen (Negative) Ur Leukocyte Esterase (Negative) Urine WBC (Auto) (0-5) /hpf Urine RBC (Auto) (0-2) /hpf U Hyaline Cast (Auto) (0-2) /lpf U Epithel Cells (Auto) (0-2) /hpf Urine Bacteria (Auto) (None Seen) Urine Mucus (None Prsent) Urine Comment Fluid Neutrophils % % Fluid Lymphocytes % % Fluid Meso/Macro/[place] % % Fluid Slide Review Fluid Comment Pleural Fluid Source Pleural Color Pleural Appearance Pleural pH (7.3-7.4) Pleural WBC (Auto) /uL Pleural RBC (Auto) /uL Pleural Total Protein gm/dl Pleural LDH Pleural Glucose mg/dl Pleural Amylase U/L Pleural Cholesterol mg/dL Gastric Fluid pH Gastric Occult Blood (Negative) Random Vancomycin 33.1 H* (10-20) mcg/ml Misc Genetic Test Blood Type Antibody Screen Crossmatch 03/12/25 03/12/25 03/11/25 Range/Units 10:01 06:03 04:01 WBC 12.02 H 11.82 H (4.8-10.8) K/ul RBC 3.44 L 2.85 L (4.20-5.40) M/uL Hgb 8.8 L 7.3 L (12.0-16.0) g/dL Hct 27.9 L 23.7 L (37.0-47.0) % MCV 81.1 83.2 (80.0-100.0) fL MCH 25.6 25.6 (25.0-34.0) pg MCHC 31.5 L 30.8 L (32.0-36.0) g/dL RDW Std Deviation 54.9 H 58.3 H (36.4-46.3) fL RDW Coeff of Mita 19.0 H 19.3 H (11.5-14.5) % Plt Count 154 151 (130-400) K/uL MPV 10.4 10.3 (9.4-12.4) fL Immature Gran % (Auto) 0.6 0.4 % Neut % (Auto) 76.5 76.0 % Lymph % (Auto) 10.7 11.8 % [place] % (Auto) 9.3 8.9 % Eos % (Auto) 2.6 2.7 % Baso % (Auto) 0.3 0.2 % Neut # (Auto) 9.19 H 8.98 H (1.40-6.50) K/uL Lymph # (Auto) 1.29 1.40 (1.20-3.40) K/uL [place] # (Auto) 1.12 H 1.05 H (0.11-0.59) K/uL Eos # (Auto) 0.31 0.32 (0.00-0.50) K/uL Baso # (Auto) 0.04 0.02 (0.00-0.20) K/uL Immature Gran # (Auto) 0.07 0.05 (0.01-0.20) K/uL Polychromasia 1+ PT (9.0-12.0) Seconds INR (0.9-1.1) APTT (21-31) Seconds PTT Ratio Heparin Anti-Xa, Unfract < 0.10 L 0.36 (0.3-0.7) IU/ml VBG pH (7.36-7.41) VBG pCO2 (38-50) mmHg VBG pO2 mmHg VBG HCO3 mmol/L VBG O2 Saturation % VBG Base Excess mEq/L Sodium 135 L 134 L (136-145) mmol/L Potassium 4.3 4.0 (3.5-5.1) mmol/L Chloride 96 L 94 L (98-107) mmol/L Carbon Dioxide 29 32 (21-32) mmol/L Anion Gap 10 8 (3-11) BUN 17 19 (6-23) mg/dl Creatinine 0.78 0.94 (0.6-1.2) mg/dl Est Cr Clr Drug Dosing 86.0 71.2 ml/min eGFR 96.59 77.21 BUN/Creatinine Ratio 21.8 H 20.2 H (10-20) Glucose 88 92 (70-99(Fasting)) mg/dl POC Glucose (70-99) mg/dl Calcium 8.4 L 8.1 L (8.6-10.3) mg/dl Phosphorus 3.1 (2.5-4.9) mg/dl Magnesium 1.9 (1.7-2.4) mg/dl Total Bilirubin 0.4 (0.2-1.0) mg/dl Direct Bilirubin (0-0.2) mg/dl AST 21 (13-39) U/L ALT 10 (7-52) U/L Alkaline Phosphatase 223 H (34-104) U/L Total Protein 5.8 L (6.0-8.3) gm/dl Albumin 2.8 L (3.4-5.0) gm/dl Globulin 3.0 (2.5-4.0) gm/dl Albumin/Globulin Ratio 0.9 (0.9-2) Urine Color Urine Appearance (Clear) Urine pH (4.5-7.5) Ur Specific Kellogg (1.000-1.030) Urine Protein (Negative) Urine Glucose (UA) (Negative) Urine Ketones (Negative) Urine Blood (Negative) Urine Nitrite (Negative) Urine Bilirubin (Negative) Urine Urobilinogen (Negative) Ur Leukocyte Esterase (Negative) Urine WBC (Auto) (0-5) /hpf Urine RBC (Auto) (0-2) /hpf U Hyaline Cast (Auto) (0-2) /lpf U Epithel Cells (Auto) (0-2) /hpf Urine Bacteria (Auto) (None Seen) Urine Mucus (None Prsent) Urine Comment Fluid Neutrophils % % Fluid Lymphocytes % % Fluid Meso/Macro/[place] % % Fluid Slide Review Fluid Comment Pleural Fluid Source Pleural Color Pleural Appearance Pleural pH (7.3-7.4) Pleural WBC (Auto) /uL Pleural RBC (Auto) /uL Pleural Total Protein gm/dl Pleural LDH Pleural Glucose mg/dl Pleural Amylase U/L Pleural Cholesterol mg/dL Gastric Fluid pH Gastric Occult Blood (Negative) Random Vancomycin 17.9 (10-20) mcg/ml Misc Genetic Test Blood Type Antibody Screen Crossmatch 03/10/25 03/10/25 03/10/25 Range/Units 21:20 20:36 08:22 WBC (4.8-10.8) K/ul RBC (4.20-5.40) M/uL Hgb (12.0-16.0) g/dL Hct (37.0-47.0) % MCV (80.0-100.0) fL MCH (25.0-34.0) pg MCHC (32.0-36.0) g/dL RDW Std Deviation (36.4-46.3) fL RDW Coeff of Mita (11.5-14.5) % Plt Count (130-400) K/uL MPV (9.4-12.4) fL Immature Gran % (Auto) % Neut % (Auto) % Lymph % (Auto) % [place] % (Auto) % Eos % (Auto) % Baso % (Auto) % Neut # (Auto) (1.40-6.50) K/uL Lymph # (Auto) (1.20-3.40) K/uL [place] # (Auto) (0.11-0.59) K/uL Eos # (Auto) (0.00-0.50) K/uL Baso # (Auto) (0.00-0.20) K/uL Immature Gran # (Auto) (0.01-0.20) K/uL Polychromasia PT (9.0-12.0) Seconds INR (0.9-1.1) APTT (21-31) Seconds PTT Ratio Heparin Anti-Xa, Unfract 0.26 L (0.3-0.7) IU/ml VBG pH (7.36-7.41) VBG pCO2 (38-50) mmHg VBG pO2 mmHg VBG HCO3 mmol/L VBG O2 Saturation % VBG Base Excess mEq/L Sodium (136-145) mmol/L Potassium (3.5-5.1) mmol/L Chloride (98-107) mmol/L Carbon Dioxide (21-32) mmol/L Anion Gap (3-11) BUN (6-23) mg/dl Creatinine (0.6-1.2) mg/dl Est Cr Clr Drug Dosing ml/min eGFR BUN/Creatinine Ratio (10-20) Glucose (70-99(Fasting)) mg/dl POC Glucose 107 H (70-99) mg/dl Calcium (8.6-10.3) mg/dl Phosphorus (2.5-4.9) mg/dl Magnesium (1.7-2.4) mg/dl Total Bilirubin (0.2-1.0) mg/dl Direct Bilirubin (0-0.2) mg/dl AST (13-39) U/L ALT (7-52) U/L Alkaline Phosphatase (34-104) U/L Total Protein (6.0-8.3) gm/dl Albumin (3.4-5.0) gm/dl Globulin (2.5-4.0) gm/dl Albumin/Globulin Ratio (0.9-2) Urine Color Urine Appearance (Clear) Urine pH (4.5-7.5) Ur Specific Kellogg (1.000-1.030) Urine Protein (Negative) Urine Glucose (UA) (Negative) Urine Ketones (Negative) Urine Blood (Negative) Urine Nitrite (Negative) Urine Bilirubin (Negative) Urine Urobilinogen (Negative) Ur Leukocyte Esterase (Negative) Urine WBC (Auto) (0-5) /hpf Urine RBC (Auto) (0-2) /hpf U Hyaline Cast (Auto) (0-2) /lpf U Epithel Cells (Auto) (0-2) /hpf Urine Bacteria (Auto) (None Seen) Urine Mucus (None Prsent) Urine Comment Fluid Neutrophils % % Fluid Lymphocytes % % Fluid Meso/Macro/[place] % % Fluid Slide Review Fluid Comment Pleural Fluid Source Pleural Color Pleural Appearance Pleural pH (7.3-7.4) Pleural WBC (Auto) /uL Pleural RBC (Auto) /uL Pleural Total Protein gm/dl Pleural LDH Pleural Glucose mg/dl Pleural Amylase U/L Pleural Cholesterol mg/dL Gastric Fluid pH Gastric Occult Blood (Negative) Random Vancomycin (10-20) mcg/ml Misc Genetic Test Blood Type A Positive Antibody Screen NEGATIVE Crossmatch See Detail 03/10/25 03/09/25 03/09/25 Range/Units 08:06 Unknown Unknown WBC 13.99 H (4.8-10.8) K/ul RBC 3.08 L (4.20-5.40) M/uL Hgb 7.8 L (12.0-16.0) g/dL Hct 25.0 L (37.0-47.0) % MCV 81.2 (80.0-100.0) fL MCH 25.3 (25.0-34.0) pg MCHC 31.2 L (32.0-36.0) g/dL RDW Std Deviation 54.7 H (36.4-46.3) fL RDW Coeff of Mita 18.9 H (11.5-14.5) % Plt Count 204 (130-400) K/uL MPV 10.2 (9.4-12.4) fL Immature Gran % (Auto) % Neut % (Auto) % Lymph % (Auto) % [place] % (Auto) % Eos % (Auto) % Baso % (Auto) % Neut # (Auto) (1.40-6.50) K/uL Lymph # (Auto) (1.20-3.40) K/uL [place] # (Auto) (0.11-0.59) K/uL Eos # (Auto) (0.00-0.50) K/uL Baso # (Auto) (0.00-0.20) K/uL Immature Gran # (Auto) (0.01-0.20) K/uL Polychromasia PT (9.0-12.0) Seconds INR (0.9-1.1) APTT (21-31) Seconds PTT Ratio Heparin Anti-Xa, Unfract < 0.10 L (0.3-0.7) IU/ml VBG pH (7.36-7.41) VBG pCO2 (38-50) mmHg VBG pO2 mmHg VBG HCO3 mmol/L VBG O2 Saturation % VBG Base Excess mEq/L Sodium 136 (136-145) mmol/L Potassium 4.3 (3.5-5.1) mmol/L Chloride 94 L (98-107) mmol/L Carbon Dioxide 33 H (21-32) mmol/L Anion Gap 9 (3-11) BUN 17 (6-23) mg/dl Creatinine 0.91 (0.6-1.2) mg/dl Est Cr Clr Drug Dosing 74.8 ml/min eGFR 80.28 BUN/Creatinine Ratio 18.7 (10-20) Glucose 103 H (70-99(Fasting)) mg/dl POC Glucose (70-99) mg/dl Calcium 8.6 (8.6-10.3) mg/dl Phosphorus 3.5 (2.5-4.9) mg/dl Magnesium 2.4 (1.7-2.4) mg/dl Total Bilirubin (0.2-1.0) mg/dl Direct Bilirubin (0-0.2) mg/dl AST (13-39) U/L ALT (7-52) U/L Alkaline Phosphatase (34-104) U/L Total Protein (6.0-8.3) gm/dl Albumin (3.4-5.0) gm/dl Globulin (2.5-4.0) gm/dl Albumin/Globulin Ratio (0.9-2) Urine Color Red Urine Appearance Turbid A (Clear) Urine pH 6.0 (4.5-7.5) Ur Specific Kellogg 1.019 (1.000-1.030) Urine Protein 3+ H (Negative) Urine Glucose (UA) Negative (Negative) Urine Ketones Negative (Negative) Urine Blood 3+ H (Negative) Urine Nitrite Negative (Negative) Urine Bilirubin 1+ H (Negative) Urine Urobilinogen Negative (Negative) Ur Leukocyte Esterase 2+ H (Negative) Urine WBC (Auto) 21-50 H (0-5) /hpf Urine RBC (Auto) >20 H (0-2) /hpf U Hyaline Cast (Auto) 0-2 (0-2) /lpf U Epithel Cells (Auto) 3-5 H (0-2) /hpf Urine Bacteria (Auto) None Seen (None Seen) Urine Mucus Present A (None Prsent) Urine Comment Fluid Neutrophils % 80 % Fluid Lymphocytes % 8 % Fluid Meso/Macro/[place] % 12 % Fluid Slide Review Fluid Comment Pleural Fluid Source Right Lung Pleural Color Janice Pleural Appearance Hazy Pleural pH 7.46 H (7.3-7.4) Pleural WBC (Auto) 2469 /uL Pleural RBC (Auto) 19409 /uL Pleural Total Protein < 3.0 gm/dl Pleural LDH 294 Cancelled Pleural Glucose 114 mg/dl Pleural Amylase 10 U/L Pleural Cholesterol 40 mg/dL Gastric Fluid pH Gastric Occult Blood (Negative) Random Vancomycin 18.5 (10-20) mcg/ml Misc Genetic Test Pending Blood Type Antibody Screen Crossmatch 03/09/25 Range/Units 20:09 WBC (4.8-10.8) K/ul RBC (4.20-5.40) M/uL Hgb 7.8 L (12.0-16.0) g/dL Hct 24.2 L (37.0-47.0) % MCV (80.0-100.0) fL MCH (25.0-34.0) pg MCHC (32.0-36.0) g/dL RDW Std Deviation (36.4-46.3) fL RDW Coeff of Mita (11.5-14.5) % Plt Count (130-400) K/uL MPV (9.4-12.4) fL Immature Gran % (Auto) % Neut % (Auto) % Lymph % (Auto) % [place] % (Auto) % Eos % (Auto) % Baso % (Auto) % Neut # (Auto) (1.40-6.50) K/uL Lymph # (Auto) (1.20-3.40) K/uL [place] # (Auto) (0.11-0.59) K/uL Eos # (Auto) (0.00-0.50) K/uL Baso # (Auto) (0.00-0.20) K/uL Immature Gran # (Auto) (0.01-0.20) K/uL Polychromasia PT (9.0-12.0) Seconds INR (0.9-1.1) APTT (21-31) Seconds PTT Ratio Heparin Anti-Xa, Unfract (0.3-0.7) IU/ml VBG pH (7.36-7.41) VBG pCO2 (38-50) mmHg VBG pO2 mmHg VBG HCO3 mmol/L VBG O2 Saturation % VBG Base Excess mEq/L Sodium (136-145) mmol/L Potassium (3.5-5.1) mmol/L Chloride (98-107) mmol/L Carbon Dioxide (21-32) mmol/L Anion Gap (3-11) BUN (6-23) mg/dl Creatinine (0.6-1.2) mg/dl Est Cr Clr Drug Dosing ml/min eGFR BUN/Creatinine Ratio (10-20) Glucose (70-99(Fasting)) mg/dl POC Glucose (70-99) mg/dl Calcium (8.6-10.3) mg/dl Phosphorus (2.5-4.9) mg/dl Magnesium (1.7-2.4) mg/dl Total Bilirubin (0.2-1.0) mg/dl Direct Bilirubin (0-0.2) mg/dl AST (13-39) U/L ALT (7-52) U/L Alkaline Phosphatase (34-104) U/L Total Protein (6.0-8.3) gm/dl Albumin (3.4-5.0) gm/dl Globulin (2.5-4.0) gm/dl Albumin/Globulin Ratio (0.9-2) Urine Color Urine Appearance (Clear) Urine pH (4.5-7.5) Ur Specific Kellogg (1.000-1.030) Urine Protein (Negative) Urine Glucose (UA) (Negative) Urine Ketones (Negative) Urine Blood (Negative) Urine Nitrite (Negative) Urine Bilirubin (Negative) Urine Urobilinogen (Negative) Ur Leukocyte Esterase (Negative) Urine WBC (Auto) (0-5) /hpf Urine RBC (Auto) (0-2) /hpf U Hyaline Cast (Auto) (0-2) /lpf U Epithel Cells (Auto) (0-2) /hpf Urine Bacteria (Auto) (None Seen) Urine Mucus (None Prsent) Urine Comment Fluid Neutrophils % % Fluid Lymphocytes % % Fluid Mes[place]/Macro/[place] % % Fluid Slide Review Fluid Comment Pleural Fluid Source Pleural Color Pleural Appearance Pleural pH (7.3-7.4) Pleural WBC (Auto) /uL Pleural RBC (Auto) /uL Pleural Total Protein gm/dl Pleural LDH Pleural Glucose mg/dl Pleural Amylase U/L Pleural Cholesterol mg/dL Gastric Fluid pH Gastric Occult Blood (Negative) Random Vancomycin (10-20) mcg/ml Misc Genetic Test Blood Type Antibody Screen Crossmatch Diagnostic Findings Abdomen Fluoroscopy 02/28/25 00:00 FL KUB CLINICAL HISTORY: LEFT STENT PLACEMENT COMPARISON STUDY: None FLUOROSCOPY TIME: 5 seconds FLUOROSCOPY IMAGES: 4 EXPOSURE DOSE: 1 mGy FINDINGS: Fluoroscopy was provided for urologic procedure. IMPRESSION: Intraoperative fluoroscopy. ACT 112: Negative or not required by law. Electronically signed by: Ricardo Green M.D. 03/01/2025 8:[address] 03/05/25 13:23 CT chest diagnostic wo con CT DOSE: 443.65 mGy.cm CLINICAL HISTORY: Pna under Rx, now w/ increasing O2 need. TECHNIQUE: Multiaxial CT images of the chest were performed without contrast. A dose lowering technique was utilized adhering to the principles of ALARA. COMPARISON STUDY: 02/02/2025 FINDINGS: There are bilateral pleural effusions, moderate on the right small on the left, increased. There is increased bandlike and patchy consolidation in the lower lung lobes, right greater than left. There is increased scattered patchy groundglass opacity in the upper lobes, left greater than right. No pneumothorax seen. No enlarged adenopathy. The esophagus is fluid-filled and mildly dilated. Represent reflux or reduced esophageal motility. No pericardial effusion. Masses at the upper liver are grossly stable. No acute osseous finding seen. IMPRESSION: Increased pneumonia and increased pleural effusions. ACT 112: Negative or not required by law. Electronically signed by: Ricardo Green M.D. 03/05/2025 3:09 PM KUB X-Ray 03/07/25 14:16 EXAM: Radiograph of the Abdomen 1 View INDICATION: Pain TECHNIQUE: Frontal supine view of the abdomen/pelvis. COMPARISON: CT 03/02/2025 FINDINGS: Limitations: None. Lower thorax: Small right pleural effusion and bilateral basilar airspace consolidation noted. Gastrointestinal tract: Relatively little bowel gas noted. Organs: Visualized organ shadows appear grossly normal. Bones/joints: No fracture, erosion or dislocation. Soft tissues: No abnormality noted. No radiopaque foreign body noted. Tubes, lines and devices: Inferior vena cava filter and bilateral ureteral stents in good position and unchanged. IMPRESSION: 1. Nonspecific relatively gasless abdomen. Consider follow-up CT. 2. Right pleural effusion and bilateral basilar airspace consolidation noted. ACT 112: N/A Electronically signed by SwannEufemia 03-07-2025 5:17 PM Thoracentesis/Paracentesis US 03/09/25 00:00 ULTRASOUND-GUIDED RIGHT THORACENTESIS CLINICAL HISTORY: Right pleural effusion PROCEDURE: Procedure and risks were explained. Informed consent was obtained. A final timeout was completed. The right posterior thorax was prepped and draped in sterile fashion. 1% lidocaine was utilized for skin anesthesia. Utilizing ultrasound guidance, a 5 [place] safety centesis catheter was advanced into the right pleural effusion. Ultrasound images were obtained. A total of 500 mL of pleural fluid was removed and sent to the lab. The catheter was removed and Band-Aid applied. The patient tolerated the procedure well. A chest x-ray will be obtained and vital signs will be monitored postprocedure. IMPRESSION: Ultrasound-guided right thoracentesis as above. Performed, dictated, and signed by Zeferino Hayward PA-C; to be co-signed by Dr. Flip Jose. Electronically signed by: Flip Jose M.D. 03/09/2025 3:53 PM Chest X-Ray 03/09/25 12:51 XR chest 1V not portable HISTORY: 44 years-old Female s/p rt thora status post thoracentesis COMPARISON: Chest radiograph of same day at 5:35 AM TECHNIQUE: AP view of the chest FINDINGS: Hypoinflation. Cardiac silhouette is enlarged. Right IJ Vduofq-s-Alxg catheter in place. Mild linear bibasilar opacities suggestive of atelectasis. Small right pleural effusion has decreased in size from prior. No postprocedural pneumothorax identified. The bones of the chest appear grossly intact. Mild mid to lower thoracic levoscoliosis. IVC filter in place. IMPRESSION: No postprocedural pneumothorax identified. ACT 112: Negative or not required by law. The above report was generated using voice recognition software. It may contain grammatical, syntax or spelling errors. Electronically signed by: Jonn Li M.D. 03/09/2025 1:17 PM Abdomen/Pelvis CT 03/09/25 22:29 Exam(s): CT ABDOMEN + PELVIS Without Contrast EXAM: CT Abdomen and Pelvis Without Intravenous Contrast CLINICAL HISTORY: R flank pain, heparin. OTHER: Other Notes: R flank pain, heparin TECHNIQUE: Axial computed tomography images of the abdomen and pelvis without intravenous contrast. CTDI is 17.77 mGy and DLP is 892.4 mGy-cm. Automated exposure control was utilized for the study. A dose lowering technique was utilized adhering to the principles of ALARA. COMPARISON: CT abdomen and pelvis with contrast dated 03/02/2025 FINDINGS: Lung bases: No significant abnormality. No mass. No consolidation. Pleural space: The bilateral pleural effusions have decreased in size but remain. Mediastinum: Prominent fluid distention of the distal thoracic esophagus. Postsurgical changes of the gastroesophageal junction. ABDOMEN: Liver: The multiple lesions throughout the liver are not well demonstrated on this noncontrast examination. Gallbladder and bile ducts: The gallbladder is mildly distended. There is a solitary noncalcified gallstone noted in the gallbladder with surrounding slight hyperdense material. No ductal dilation. Pancreas: No significant abnormality. No ductal dilation. Spleen: Similar perisplenic fluid. Adrenals: No significant abnormality. No mass. Kidneys and ureters: Bilateral double-J ureteral stents remain in position. However, there is new xeor-te-dzvjbbxk right hydronephrosis and proximal right ureterectasis. Stomach and bowel: Evaluation of the bowel is limited without contrast. Similar diffuse fluid-filled small bowel. A right sided ileostomy is noted. Subtotal colectomy remains. Incidental duodenal diverticulum noted, similar to the previous exam. Postsurgical changes also noted along the greater curvature of the stomach consistent with previous gastric reduction surgery. PELVIS: Appendix: Surgically absent. Bladder: The bladder is unremarkable and is stable in appearance, mild- to-moderately distended. No stones. Reproductive: Status post hysterectomy. Subperitoneal space: Similar to minimally increased presacral edema. ABDOMEN and PELVIS: Intraperitoneal space: No significant abnormality. No free air. No significant fluid collection. Bones/joints: No acute fracture. No dislocation. Soft tissues: See above. Mild fat stranding noted along the lateral aspect of the pelvis bilaterally. Vasculature: An IVC filter is noted in position. No abdominal aortic aneurysm. Lymph nodes: No significant abnormality. No enlarged lymph nodes. IMPRESSION: 1. Bilateral double-J ureteral stents remain in position. However, there is new audi-us-ixpgdjks right hydronephrosis and proximal right ureterectasis. This finding raises the suspicion for potential developing occlusion or insufficiency of the right ureteral stent. However, no significant perinephric abnormality noted bilaterally. 2. Similar perisplenic fluid. 3. Prominent fluid distention of the distal thoracic esophagus. Postsurgical changes of the gastroesophageal junction. The clinical significance of this finding is indeterminate. 4. Additional findings previously identified, as noted above. Electronically signed by: Zeferino Umaña MD 03/09/25 23:[address] 03/15/25 06:12 EXAM: CT head/brain wo con CLINICAL HISTORY: AMS TECHNIQUE: Axial non-contrast CT scan of the brain was performed from the skull base to the high parietal region with axial, sagittal, and coronal reconstructions. One of the following dose reduction techniques was utilized for this exam: automated exposure control, adjustment of the mA and/or kV according to patient size, and use of iterative reconstruction. DLP: 625.80 mGy.cm COMPARISON: None. FINDINGS: Brain Parenchyma: Normal attenuation of the cerebral hemispheres, cerebellum, and brainstem. No evidence of acute infarct, hemorrhage, or mass effect. No abnormal areas of hypo- or hyperattenuation. Ventricular System: Ventricles are normal in size and configuration. No evidence of hydrocephalus or ventricular enlargement. Subarachnoid Spaces: Normal sulci and cisterns. No evidence of subarachnoid hemorrhage or extra-axial fluid collections. Cerebellum and Brainstem: No masses, lesions, or areas of abnormal density. Orbits: Normal appearance of the globes, optic nerves, and extraocular muscles. No evidence of orbital masses or abnormal density. Sinuses: Clear paranasal sinuses. No evidence of sinusitis or mucosal thickening. Mastoid Air Cells: Clear mastoid air cells. No evidence of mastoiditis. Skull: Normal skull morphology. IMPRESSION: 1. Normal CT of the head without contrast. 2. MRI with diffusion may be indicated if there is a clinical possibility of hyperacute or acute infarction. Electronically signed by Jacques Sweeney 03-15-2025 08:12 AM Venous Doppler Study 03/16/25 01:43 EXAM: US venous doppler LE RT CLINICAL HISTORY: Edema, DVT TECHNIQUE: Ultrasound examination of right lower extremity veins was performed in real-time and duplex. One or more of the following were performed: spectral analysis, resistive index, waveform analysis, and pulsed Doppler. COMPARISON: 02/16/2024 FINDINGS: Edema is identified in the right lower extremity. All the veins appear dilated showing echogenic occlusive thrombus in all veins of the right lower extremity, involving right common femoral, great saphenous, deep and superficial femorals, popliteal, gastrocnemius, posterior tibial peroneal and anterior tibial veins. Limited evaluation of the right common iliac veins due to colostomy bag. Compression and Augmentation: Loss of compression. IMPRESSION: Acute DVT detected in right common femoral, superficial femoral, popliteal, gastrocnemius, posterior tibial, anterior tibial and peroneal veins at the time of examination (interval new). Disclaimer: DVT could be missed early in the disease when clot burden is minimal. For patients with moderate and high pretest probability of DVT and negative ultrasound, the [employer] clinical guidelines recommend testing with a D-dimer assay or repeat ultrasound in 5-7 days. If symptoms worsen, the Society of radiologists in ultrasound recommends repeating ultrasound even earlier. Electronically signed by Jacques Sweeney 03-16-2025 05:36 AM PG Care Time/CCT Total # of Minutes Spent Total Time Spent with Patient: Total time spent is greater than 50% in coordination of care (as documented) at patient's floor/unit and/or counseling patient: I spent 145 minutes overall addressing this case: 20 min in medical data review/discussion with referring provider(s) and/or preparation for the visit d/w primary team, med onc, nursing 25min in direct interaction with the patient/exam 60 min in Advance Care Planning/Goals of Care discussions as detailed above in note (must be >16min) 15 min in subsequent review and synthesis of assessment and plan 25min communicating with other providers regarding the patient's case: nursing, primary team Advanced Care Planning 83636 Advanced Care Planning 30 Min 76627 Advanced Care Planning Additional 30 Min [place] [address] SUB INP/OBS CARE 3/50MIN (25 - SIGNIFICANT, SEPARATELY IDENTIFIABLE ) Patient Type Established Medical Decision Making High Complexity Diagnoses Cancer related pain G89.3 Generalized abdominal pain R10.84 Abdominal location: generalized Vomiting of fecal matter with nausea R11.13 Vomiting type: vomiting of fecal matter Advanced care planning/counseling discussion Z71.89 Palliative care by specialist Z51.5 Adenocarcinoma, colon C18.9 Altered mental status R41.82 DVT (deep venous thrombosis) I82.409 Additional Codes Advanced Care Planning - 44674 Advanced Care Planning 30 Min: 77483 Advanced Care Planning 30 Min ([id number]) Advanced Care Planning - 34956 Advanced Care Planning Additional 30 Min: 47000 Advanced Care Planning Additional 30 Min ([id number]) Comment [id number], [id number] (2) Abdominal pain Abdominal location: generalized Qualified Code(s): R10.84 - Generalized abdominal pain (3) Nausea & vomiting Vomiting type: vomiting of fecal matter Qualified Code(s): R11.13 - Vomiting of fecal matter
--- NOTE | 2025-03-16 10:29 | Pharmacy Report ---
Pharmacy PK ABX Note - Date of Service March 16, 2025 - Assessment and Plan Assessment 03/16: * Day #11 vancomycin * Renal function is continuing to decline today (SCr 1.64mg/dL). Due to this and the elevated vancomycin level seen yesterday, further dosing of vancomycin will be based on levels. The next level has been scheduled for tomorrow with morning labs. 03/15: * Day #10 vancomycin * Vancomycin level drawn this morning was 33.1mcg/mL which extrapolates to AUC significantly above goal. The maintenance dose of vancomycin was decreased * Per hospitalist note, battery container inspector recommends longer duration of antibiotics (14 days). * SCr trending up (1.17mg/dL today), leukocytosis has resolved, and afebrile. * ertapenem discontinued 03/14 as urine culture grew Salma. 03/10: * Random vancomycin level this AM was ~18 mcg/ml - current dosing anticipated to achieve goal AUC/ASH therefore will continue current vancomycin regimen. ID recommending 7 days total for MRSA pneumonia. Today is day 08/12 for therapy. Patient s/p thoracentesis 03/09 - cultures pending. Patient with gross h ematuria/flank pain - provider starting ertapenem d/t hx ESBL uti's and also ordered a urine culture. 03/08: * Sputum culture finalized as MRSA * SCr increasing (0.53 mg/dL -> 0.7 mg/dL -> 0.93 mg/dL) * Antibiotics to be de-escalated today per hospitalist. Discussed possible switch to linezolid (given tolerability concerns with vancomycin), but holding off on this for now until provider can discuss with patient (due to concomitant escitalopram and buspirone). * Pre-medicating with diphenhydramine 25 mg IV * Awaiting ID consult 03/07 * Sputum culture growing S. aureus, sensitivities pending * WBC downtrending, afebrile, tolerating vancomycin at slower rate * Infectious disease consulted * Random level today 15.5 mcg/mL correlates with achievement of target AUC/ASH 03/06 * 44 year old F receiving vancomycin/cefepime/doxycycline for treatment of multifocal pneumonia (increasing O2 requirements today) and IV fluconazole for urinary tract infection. Pertinent microbiologic data includes: Positive MRSA Nasal Swab, urine culture 02/27/25 growing salma albicans. 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 Will double length of infusion and pre- treat with diphenhydramine (ordered by pulm). Possibly could increase vancomycin dilution if needed. Patient is not a great linezolid candidate due to multiple serotonergic medications and daptomycin is not recommended for pneumonia treatment. Would recommend ID consult if not tolerating vancomycin for other treatment options. Plan Vancomycin * Dose per level * Next level scheduled for 03/17 with morning labs. Pharmacy will continue to follow and will adjust dose/frequency as necessary. Thank you. Pharmacy has transitioned to AUC monitoring for vancomycin. AUC/ASH is the preferred PK/PD target and is associated with decreased risk of nephrotoxicity compared to traditional trough targets.
[2025-03-16 10:44] LABS: Hematocrit (blood only) 26.4 % (37.0-47.0); Hemoglobin 8.1 g/dL (12.0-16.0)
[2025-03-16] MEDS: ERTAPENEM 1000MG 1,000 MG/10 ML SYR IV SCH (10:57)
[2025-03-16] MEDS: SODIUM CHLORIDE 0.9% 1,000 ML IV SCH (11:10)
[2025-03-16] MEDS ORDERED: TPN/PPN CONSULT PHARMACY STA (11:13)
[2025-03-16] MEDS ORDERED: DEXTROSE 10% 1,000 ML IV PRN ×2 (11:14→11:33)
[2025-03-16] MEDS ORDERED: LORazepam Inj 0.5 MG in SYRINGE 0.25 ML IV PRN (11:18)
[2025-03-16] MEDS ORDERED: TPN/PPN CONSULT PHARMACY PRN (11:19)
[2025-03-16 12:09] LABS: Anion Gap 10.0 (3-11); Blood Urea Nitrogen 42.0 mg/dl (6-23); Calcium 8.7 mg/dl (8.6-10.3); Carbon Dioxide 27.0 mmol/L (21-32); Chloride 98.0 mmol/L (98-107); Creatinine Clr Calc Pharmacy 32.4 ml/min; Glucose 157.0 mg/dl (70-99(Fasting)); Magnesium 2.7 mg/dl (1.7-2.4); Potassium 4.9 mmol/L (3.5-5.1); Sodium 135.0 mmol/L (136-145); Triglycerides 206.0 mg/dl (0-150)
[2025-03-16] MEDS: SODIUM CHLORIDE 0.9% 1,000 ML IV ONE (12:10)
[2025-03-16] MEDS: PALONOSETRON 0.25 MG in SYRINGE 0 ML IV SCH (12:45)
--- NOTE | 2025-03-16 12:51 | Communication Note ---
Date of Service: March 16, 2025 [facility] Med Brief Note Deanna is declining - hypotension, tachy, respirations 9-10 AMS progressive I spoke with Rnony - reviewed decline and revisited code status He is in agreement for NO code but would like a trial of escalated therapies including ICU transfer, pressor support, PPN/TPN BUT no code, no CPR. Try to treat what's treatable and fix what's fixable. I have updated nursing and primary team Thank you for allowing us to participate in the ongoing care of this patient. Please page with any additional concerns. Mikaela Hurst DNP Director, Palliative Medicine
--- NOTE | 2025-03-16 13:00 | Pharmacy Report ---
Pharmacy Initial PN Consult Nt - Date of Service March 16, 2025 - Scope Pharmacy has been consulted on this date to manage parenteral nutrition orders and order appropriate labs. As part of the Nutrition Support Team Guidelines, pharmacy will work in conjunction with dietary when determining the patients caloric needs. - Subjective * The patient is a 44 year old Female admitted on 02/27/25 for severe left sided abd pain, uti. * Patient is to receive parenteral nutrition for malnutrition secondary to metastatic colon cancer. N/V--unable to tolerate substantial po intake and not a candidate for ng insertion. * Pertinent PMHx: perforated diverticulitis/adenocarcinoma s/p colostomy. Recent admission for bowel obstruction (02/2025) - Objective Vascular Access: * Patient currently has a peripheral line. * Peripheral line was confirmed by IV Team to be acceptable for PPN use on this date. Height & Weight (Last Documented) Height 5 ft 3 in Weight 69.2 kg Diet Order(s) 03/16/25 02:38 NPO Intake & Ouput (24hrs) 03/15/25 03/16/25 03/17/25 06:59 06:59 06:59 Intake Total 540 / 540 1962 179 / 179 Balance 540 / 540 1962 179 / 179 Selected Laboratory Results 03/16/25 03/16/25 05:27 11:38 Sodium 135 L Potassium 4.9 Chloride 98 Carbon Dioxide 27 Anion Gap 10 BUN 42 H Creatinine 1.64 H D 2.09 H D BUN/Creatinine Ratio 20.1 H Glucose 157 H Calcium 8.7 Phosphorus 4.9 Magnesium 2.7 H Total Bilirubin 0.4 AST 23 ALT 10 Alkaline Phosphatase [address] - Follow Up Nutrition Assessment Start: 02/27/25 13:37 Freq: Status: Active Protocol: Document 03/12/25 11:43 ALR (Rec: 03/12/25 12:03 ALR [id number]) - Assessment & Plan Assessment: * Appreciate dietitians recommendations for macronutrients. Patient with worsening SANDRA, so will adjust electrolytes in PPN accordingly. Plan: * For Day #1 of PPN administration, the following will be ordered: * Macronutrients: * Amino Acids: 42.5 grams/day * Dextrose: 50 grams/day * Lipids: 0 grams/day * Micronutrients: * TPN electrolytes: 0 mL/day * Sodium phosphate: 0 mMol/day * Sodium chloride: 50 mEq/day * Sodium acetate: 30 mEq/day * Potassium phosphate: 0 mMol/day * Potassium chloride: 0 mEq/day * Potassium acetate: 0 mEq/day * Magnesium sulfate: 0 mEq/day * Calcium gluconate: 0 mEq/day * Multivitamins: 10 mL/day * Trace elements: 1 mL/day * Thiamine: 100 mg/day * Folic Acid: 1 mg/day * Total volume of 1047 mL will be infused over 24 hours and will provide 340 kcal/day * Patient is on PPN which has a maximum mOsm/L of 900. Final osmolarity of current solution is 797 mOsm/L. * Labs will be ordered per PN protocol. * Pharmacy will follow and adjust PN orders on a daily basis. Thank you!
--- NOTE | 2025-03-16 13:17 | Critical Care Consultation ---
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 Neurologic: Patient encephalopathic likely due to polypharmacy and metastatic burden of disease. Brain mets have not been completely ruled out as of yet. Patient would benefit from her MRI of the brain once stabilized. CT head was negative for acute finding. Patient with myoclonic jerking activity possibly due to polypharmacy. Will obtain ABG to evaluate CO2 and pH. Uremia may be playing a role as well. Pulmonary: Patient with a recent history of metastatic adenocarcinoma to the right pleural space based on thoracentesis 03/09/2025. Repeat chest x-ray today. Oxygen requirements minimal and she is saturating well on room air. Cardiovascular: Maintain MAP above 65 mmHg. IV fluid boluses as needed. Pressors as needed. She is at risk for pulmonary embolism, but fortunately has an IVC filter in place. EKG 03/10/2025 with sinus tachycardia. Repeat EKG and troponins now. Obtain echo. Hold antihypertensives Gastrointestinal: Recent partial bowel obstruction. Patient on Protonix drip currently due to con cerns of possible upper GI bleed. Trend hemoglobin and consult GI. Give bolus of 5% albumin. Renal: Patient with worsening SANDRA possibly prerenal and obstructive. Monitor urine output closely. Gentle hydration and as needed boluses. Infectious disease: Reculture urine and blood. Obtain chest x-ray. Meropenem added per hospitalist service per my recommendation to treat for undifferentiated sepsis. Continue vancomycin given history of positive MRSA screen. Hematologic: Trend CBC given possible upper GI bleed. Continue Protonix. Avoid chemoprophylaxis at this time given possible GI bleed. Endocrine: Check TSH. Maintain euglycemia. Maintain Ram catheter. He is supportive catheter pressors as needed. VTE prophylaxis: SCD CODE STATUS: DNR/DNI per palliative care discussion with palliative care team Family at bedside: updated at bedside Disposition: ICU. Prognosis is very poor due to metastatic adenocarcinoma of the colon and declining performance status. I have personally spent 63 minutes of critical care time in the direct management of this patient. This is a life/limb threatening event. This includes time spent evaluating patient, direct bedside care, chart review, placing orders, interpretation of diagnostic studies, discussion with consultants, patient, and family members, as well as other required patient management activities. This time is exclusive of all separately billable procedures, and teaching time and separate from and in addition to any other critical care service time. Thank you for allowing us to participate in the care of this patient. History of Present Illness Reason for Consultation: Hypotension Attending Physician: Chanel Shukla MD History of Present Illness 44-year-old female with a history of metastatic colon adenocarcinoma with mets to the liver, peritoneum and pleural space who underwent a partial colectomy, ileostomy with complete hysterectomy in October 2024 at [facility]. She also had a hepatic abscess, pulmonary embolism on Eliquis and a right hydronephrosis status post right ureteral stent placement in January. Other history includes C. difficile infection, gastric bypass, ESBL and anemia. She has had a progressive decline in performance status and has been intolerant to being able to keep down any p.o. intake. She has had bloody output from her ileostomy. Pulmonary was consulted earlier this admission and she underwent a thoracentesis March 09 which yielded metastatic adenocarcinoma. Ultrasound of her right lower extremity revealed an acute DVT in the right common femoral, superficial femoral, popliteal gastrocnemius, posterior tibial, anterior tibial and peroneal veins. CT head due to altered mental status yesterday revealed a normal CT head. CT abdomen pelvis 03/09/2025 revealed bilateral double-J ureteral stents and mild to moderate right hydronephrosis and proximal right ureterectasis. Urology has been following. Prominent fluid distention of the distal thoracic esophagus noted. Patient is currently on a pantoprazole drip. IV meropenem was started by the hospitalist service per my recommendation. MRSA screen was + 03/05/2025. Patient denies any chest pain or abdominal discomfort. She is encephalopathic and often hallucinating and picking at things in the air. Her is at bedside. Review of systems is limited. Patient's hospitalist at bedside as well. Allergies Allergy/AdvReac Type Severity Reaction Status Date / Time oxaliplatin Allergy Intermediate "HOT & Verified 02/27/25 00:23 ITCHY" IMMEDIATELY vancomycin Allergy Intermediate "HOT & Verified 02/27/25 00:23 ITCHY" IMMEDIATELY Home Medications Medication Instructions Recorded Confirmed Type apixaban 5 mg tablet (Eliquis) 5 mg PO BID 02/02/25 02/27/25 History buspirone 10 mg tablet 10 mg PO BID 02/02/25 02/27/25 History escitalopram oxalate 20 mg tablet 20 mg PO DAILY 02/02/25 02/27/25 History famotidine 20 mg tablet 20 mg PO BID 02/02/25 02/27/25 History lorazepam 0.5 mg tablet 0.5 mg PO TID PRN Anxiety 02/02/25 02/27/25 History pregabalin 50 mg capsule 50 mg PO BID #30 caps 02/06/25 02/27/25 Rx hydromorphone 4 mg tablet 4 mg PO Q4H PRN severe cancer pain 02/18/25 02/27/25 Rx (Dilaudid) 1 month #180 tabs ondansetron 8 mg disintegrating 8 mg PO Q8H PRN Nausea 02/24/25 02/27/25 History tablet methocarbamol 500 mg tablet 1,000 mg PO QID PRN NEEDED PER 02/27/25 02/27/25 History PT Patient History Medical History Nausea & vomiting Small bowel obstruction Peritonitis Abdominal pain Acute diverticulitis History of Clostridium difficile infection diagnosed 02/09/24 while admitted in hospital - treated with Vancomycin until 02/27/24 Colostomy present done 02/04/24 stoma revised 02/06/24 with an additional 4.5cm of the colon removed History of diverticulitis history of multiple flares over the past year Hx of deep venous thrombosis (2010) - s/p childbirth in 2010- was on blood thinner for short time - no DVT noted with PE on 02/16/24 Hx of migraines History of panic attacks History of pulmonary embolism dx 02/16/24 at [place]>started on Eliquis provoked by malignancy and surgical intervention per records dopplers negative for DVT Adenocarcinoma of colon dx'ed 01/2024 Perforated sigmoid colon - 02/03/24 due to enlarging mass (adenocarcinoma of the colon) - 02/04/24 underwent partial left colon resection and end colostomy Depression with anxiety Surgical History Hx of hysterectomy Port-A-Cath in place (03/13/24) Insertion of Access Port with Fluoroscopy into Right Internal Jugular Vein(Right) - Elizabeth Velasquez DO [place] teeth removed H/O abdominal surgery (02/05/24) Exploratory Laparoscopy Revision of Colostomy and Stoma(Not Applicable) - Elizabeth Velasquez DO History of x 2 H/O gastric sleeve (2021) History of colon resection (02/04/24) p Diagnostic Laparoscopy, with a laparoscopic colon resection, Abdominal Wash Out, Creation Colostomy(Not Applicable) - Elizabeth Velasquez DO Extensive lysis of adhesions Family History Other No family history of adverse response to anesthesia Social History Smoking Status: Never smoker Second Hand Exposure: No; Do You Dip or Chew Tobacco: No; Hx Alcohol Use: No Hx Substance Use: No Preferred Language: Portuguese Communication Ability: Effective Visual Impairment: No Limitations 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 Beliefs That Will Affect Care: Episcopal Current Living Situation: Spouse Current Living Situation Comment: Home Feels Safe at Home: Yes Assistive Devices: None Review of Systems Review of Systems: All systems reviewed & are unremarkable except as noted in HPI & below Physical Exam Constitutional: + ill appearing Eyes: PERRL, conjunctivae normal, anicteric sclerae Respiratory: no respiratory distress, no labored breathing, no cough and not tachypneic Auscultation: + diminished lung sounds Cardiovascular: RRR, no murmur, no edema Gastrointestinal (Abdomen): Ileostomy in place draining melanotic appearing liquid. Abdomen is soft and nontender. Skin: no rashes, warm and dry (Port-A-Cath in place.) Psychiatric: A+Ox3, euthymic affect Results & Data Results & Data Vital Signs (Past 12 Hours) Vital Signs Temp Pulse Pulse Resp BP BP Pulse Ox 03/16/25 12:33 106/67 03/16/25 12:01 36.5 C 115 H 10 L 88/56 L 97 03/16/25 08:04 36.9 C 123 H 19 101/77 96 03/16/25 07:21 03/16/25 05:38 120 H 03/16/25 02:47 37.1 C 126 H 115/80 94 O2 Del Method 03/16/25 12:33 03/16/25 12:01 Room Air 03/16/25 08:04 Room Air 03/16/25 07:21 Room Air 03/16/25 05:38 03/16/25 02:47 Room Air Coding Level of Care Code 90667 CRITICAL CARE 1ST 30-74M Diagnoses Hypovolemia E86.1 Sepsis A41.9 Altered mental status R41.82 Advanced care planning/counseling discussion Z71.89 Pleural effusion J90 Vomiting of fecal matter with nausea R11.13 Vomiting type: vomiting of fecal matter Partial small bowel obstruction K56.600 Anemia D64.9 Anemia type: unspecified type DVT (deep venous thrombosis) I82.409 (6) Nausea & vomiting Vomiting type: vomiting of fecal matter Qualified Code(s): R11.13 - Vomiting of fecal matter (8) Anemia Anemia type: unspecified type Qualified Code(s): D64.9 - Anemia, unspecified
[2025-03-16] MEDS: MEROPENEM 500 MG in SYRINGE 0 ML IV SCH (13:45)
[2025-03-16 13:50] LABS: Alanine Aminotransferase 11.0 U/L (7-52); Albumin Globulin Ratio 0.9 (0.9-2); Albumin Level 2.5 gm/dl (3.4-5.0); Alkaline Phosphatase 222.0 U/L (34-104); Anion Gap 9.0 (3-11); Bilirubin,Total 0.4 mg/dl (0.2-1.0); Blood Urea Nitrogen 39.0 mg/dl (6-23); Calcium 8.1 mg/dl (8.6-10.3); Carbon Dioxide 27.0 mmol/L (21-32); Chloride 100.0 mmol/L (98-107); Creatinine Clr Calc Pharmacy 35.1 ml/min; Globulin 2.8 gm/dl (2.5-4.0); Glucose 122.0 mg/dl (70-99(Fasting)); Hematocrit (blood only) 23.2 % (37.0-47.0); Hemoglobin 7.1 g/dL (12.0-16.0); Mean Corpuscular Hemoglobin 25.6 pg (25.0-34.0); Mean Corpuscular Volume 83.8 fL (80.0-100.0); Platelet Count 138 K/uL (130-400); Potassium 4.9 mmol/L (3.5-5.1); RDW Standard Deviation 55.1 fL (36.4-46.3); Red Blood Count 2.77 M/uL (4.20-5.40); Sodium 136.0 mmol/L (136-145); Total Protein 5.3 gm/dl (6.0-8.3); White Blood Count 10.79 K/ul (4.8-10.8)
[2025-03-16 14:04] LABS: iSTAT Art Bld Gas Base Excess 0.0 mmol/L (-9-1.8); iSTAT Art Bld Gas pCO2 Correct 35 mmHg (35-46); iSTAT Art Bld Gas pH Corrected 7.447 (7.35-7.45); iSTAT Arterial Blood Gas pO2 C 68
[2025-03-16 14:11] LABS: Immature Granulocytes # (auto) 0.06 K/uL (0.01-0.20); Immature Granulocytes % (auto) 0.6 %
--- NOTE | 2025-03-16 14:29 | Communication Note ---
Date of Service: March 16, 2025 Palliative Med Brief Note I spoke with Dr Read/[facility] x 20min. We reviewed clinical events to date and he was in agreement with current plan and advised no chemo possible right now. However if she turns a corner/gets a little more stable he would be willing to offer low dose chemo/gentle chemo to help buy her more time but not curable. He advised he would offer this without PET since effusion was + for adenoca. I have updated primary team, CCM, patient . TS 25min Thank you for allowing us to participate in the ongoing care of this patient. Please page with any additional concerns. Mikaela Hurst DNP Director, Palliative Medicine
[2025-03-16 14:30] LABS: Thyroid Stimulating Hormone 1.094 uIu/ml (0.300-4.500)
[2025-03-16] MEDS: ALBUMIN 5% 250 ML IV ONE (14:46)
--- NOTE | 2025-03-16 14:51 | XRay Report ---
XR chest 1V portable HISTORY: 44 years-old Female eval acute shortness of breath COMPARISON: 03/09/2025 TECHNIQUE: AP view of the FINDINGS: Cardiac silhouette is enlarged. Right IJ Afeual-s-Xomc catheter in unchanged positioning. Lungs are h ypoinflated. Linear right basilar consolidation. No pneumothorax. Trace right pleural effusion. Degen erative changes of the shoulders and spine. Partially imaged right ureteral stent. IVC filter. IMPRESSION: 1. Trace right pleural effusion with linear right basilar consolidation favoring atelectasis. 2. Hypoinflation. ACT 112: Negative or not required by law. The above report was generated using voice recognition software. It may contain grammatical, syntax o r spelling errors. Electronically signed by: Jonn Li M.D. 03/16/2025 2:49 PM
[2025-03-16 15:04] LABS: Appearance Urine Turbid (Clear); Cast Urine Automated 0-2 /lpf (0-2); Glucose Urine UA Trace (Negative); RBC Urine Automated >20 /hpf (0-2); WBC Urine Automated 0-5 /hpf (0-5)
[2025-03-16 15:20] LABS: Bacteria Urine Automated 4+ (None Seen)
--- NOTE | 2025-03-16 15:41 | Gastroenterology Progress Note ---
Date of Service March 16, 2025 Assessment & Plan (1) Nausea & vomiting: Plan: 44 year old female w/ history of metastatic colon adenocarcinoma to the liver and peritoneum, perforated diverticulitis/adenocarcinoma s/p colostomy, PE on Eliquis, C diff s/p treatment, anxiety, depression, ELIJAH and others below admitted w/ nausea/vomiting. S/P EGD w/ evidence of sleeve gastrectomy characterized by healthy appearing mucosa, Bilious gastric fluid, erythematous mucosa in the stomach, LA Grade D reflux esophagitis with bleeding In light of the large amount of retained fluid in the stomach and esophagus at least some degree of partial obstruction suspected likely related to overall tumor burden. CTAP yesterday revealed SBO. Continue twice daily PPI (2) UGIB (upper gastrointestinal bleed): Plan: 44 year old female w/ history of metastatic colon adenocarcinoma to the liver and peritoneum, perforated diverticulitis/adenocarcinoma s/p colostomy, PE on Eliquis recently stopped, C diff s/p treatment, anxiety, depression, ELIJAH and others below admitted w/ nausea/vomiting. S/P EGD in 03/02 w/ evidence of sleeve gastrectomy characterized by healthy appearing mucosa, Bilious gastric fluid, erythematous mucosa in the stomach, LA Grade D reflux esophagitis with bleeding In light of the large amount of retained fluid in the stomach and esophagus at least some degree of partial obstruction suspected likely related to overall tumor burden. CTAP prior with psbo.. Continue twice daily PPI. Continue antiemetics. Seen by general surgery who felt that venting gastrostomy with is the only option which the patient or the family was not interested in. They recommended supportive care with TPN. Since that time patient has had a gradual decline and recently had a change in mental status with output of some dark bilious and bright red blood per ostomy. Her hemoglobin is currently 7.1 this is down from her baseline of 8-8.8. She is confused is moving in bed. Denies significant abdominal pain but has more nausea and vomiting. She has been on PPI twice daily. The bleeding is most certainly from gastritis from partial obstruction and reflux esophagitis. She has had bleeding before and this was occurring during her EGD. She has ulcerative esophagitis and with her continued partial obstruction she continues to have bilious reflux into the stomach and esophagus. Really limited options at this point. Keep the head of bed above 30 degrees. Transfuse hemoglobin to greater than 8. Supportive care with PPI IV twice daily. The risks of a repeat endoscopy are greater than the benefits as she is partially obstructed and could aspirate during the procedure. Her last endoscopy was done on 03/02. Very difficult situation in a young individual with very poor prognosis Admission and Anticipated Discharge Date Admission Date: February 27, 2025 Subjective 44 year old female w/ history of metastatic colon adenocarcinoma to the liver and peritoneum, perforated diverticulitis/adenocarcinoma s/p colostomy, PE on Eliquis recently stopped, C diff s/p treatment, anxiety, depression, ELIJAH and others below admitted w/ nausea/vomiting. S/P EGD in 03/02 w/ evidence of sleeve gastrectomy characterized by healthy appearing mucosa, Bilious gastric fluid, erythematous mucosa in the stomach, LA Grade D reflux esophagitis with bleeding In light of the large amount of retained fluid in the stomach and esophagus at least some degree of partial obstruction suspected likely related to overall tumor burden. CTAP prior with psbo.. Continue twice daily PPI. Continue antiemetics. Seen by general surgery who felt that venting gastrostomy with is the only option which the patient or the family was not interested in. They recommended supportive care with TPN. Since that time patient has had a gradual decline and recently had a change in mental status with output of some dark bilious and bright red blood per ostomy. Her hemoglobin is currently 7.1 this is down from her baseline of 8-8.8. She is confused is moving in bed. Denies significant abdominal pain but has more nausea and vomiting. She has been on PPI twice daily. GI called back due to bleeding and persistent nausea and vomiting Review of Systems Review of Systems: Unobtainable due to mental health condition and Unobtainable due to cognitive status Physical Exam Physical Exam: Physical Exam: General: Cachectic female appearing who is confused and moving in the bed HEENT: EOMI, PERRL Neck: trachea midline, no lad Lungs: Decreased breath sounds in both bases with few crackles Heart: Tachycardic no M and no edema Abd: soft, distended with mild tenderness there is some gas and stool in the ostomy. Tender diffusely Musculoskeletal: no c/c/e, decrease strength and ill-appearing throughout Neuro: CN2-12 intact, normal gait, normal strength Results & Data Results & Data Vital Signs (Past 12 Hours) Vital Signs Temp Pulse Pulse Resp BP BP BP 03/16/25 15:00 99/56 L 03/16/25 15:00 99/56 L 03/16/25 15:00 99/56 L 03/16/25 15:00 99/56 L 03/16/25 15:00 99/56 L 03/16/25 15:00 109 H 27 H 03/16/25 14:00 104/71 03/16/25 14:00 104/71 03/16/25 14:00 104/71 03/16/25 14:00 104/71 03/16/25 14:00 104/71 03/16/25 14:00 113 H 15 03/16/25 13:30 103/72 03/16/25 13:30 103/72 03/16/25 13:30 103/72 03/16/25 13:30 103/72 03/16/25 13:30 103/72 03/16/25 13:30 34 H 03/16/25 12:33 106/67 03/16/25 12:01 36.5 C 115 H 10 L 88/56 L 03/16/25 12:00 19 03/16/25 11:00 11 L 03/16/25 10:00 14 03/16/25 08:04 36.9 C 123 H 19 101/77 03/16/25 07:21 03/16/25 05:38 120 H Pulse Ox O2 Del Method 03/16/25 15:00 03/16/25 15:00 03/16/25 15:00 03/16/25 15:00 03/16/25 15:00 03/16/25 15:00 90 03/16/25 14:00 03/16/25 14:00 03/16/25 14:00 03/16/25 14:00 03/16/25 14:00 03/16/25 14:00 98 03/16/25 13:30 03/16/25 13:30 03/16/25 13:30 03/16/25 13:30 03/16/25 13:30 03/16/25 13:30 94 03/16/25 12:33 03/16/25 12:01 97 Room Air 03/16/25 12:00 03/16/25 11:00 03/16/25 10:00 03/16/25 08:04 96 Room Air 03/16/25 07:21 Room Air 03/16/25 05:38 PG Care Time/CCT Total # of Minutes Spent Total Time Spent with Patient: Total time spent is greater than 50% in coordination of care (as documented) at patient's floor/unit and/or counseling patient: Coding [place] [address] SUB INP/OBS CARE 3/50MIN Patient Type Established History Comprehensive Exam Comprehensive Medical Decision Making High Complexity Diagnoses Nausea & vomiting R11.2 Vomiting type: unspecified UGIB (upper gastrointestinal bleed) K92.2 (1) Nausea & vomiting Vomiting type: unspecified Qualified Code(s): R11.2 - Nausea with vomiting, unspecified
[2025-03-16 17:39] LABS: Hematocrit (blood only) 23.0 % (37.0-47.0); Hemoglobin 7.2 g/dL (12.0-16.0)
--- NOTE | 2025-03-16 20:12 | XCELERA ---
[id number] \\[email or web address]\[id number]
[2025-03-17] MEDS: LACTATED RINGER'S 500 ML IV ONE (01:17)
[2025-03-17 02:42] LABS: Anion Gap 9.0 (3-11); Blood Urea Nitrogen 46.0 mg/dl (6-23); Calcium 8.3 mg/dl (8.6-10.3); Carbon Dioxide 26.0 mmol/L (21-32); Chloride 99.0 mmol/L (98-107); Creatinine Clr Calc Pharmacy 28.8 ml/min; Glucose 136.0 mg/dl (70-99(Fasting)); Magnesium 2.5 mg/dl (1.7-2.4); Potassium 4.6 mmol/L (3.5-5.1); Sodium 134.0 mmol/L (136-145)
[2025-03-17 03:52] LABS: Hematocrit (blood only) 23.2 % (37.0-47.0); Hemoglobin 7.0 g/dL (12.0-16.0); Mean Corpuscular Hemoglobin 25.4 pg (25.0-34.0); Mean Corpuscular Volume 84.1 fL (80.0-100.0); Platelet Count 160 K/uL (130-400); RDW Standard Deviation 55.6 fL (36.4-46.3); Red Blood Count 2.76 M/uL (4.20-5.40); White Blood Count 12.82 K/ul (4.8-10.8)
[2025-03-17 04:14] LABS: Immature Granulocytes # (auto) 0.15 K/uL (0.01-0.20); Immature Granulocytes % (auto) 1.2 %; Polychromasia 1+
[2025-03-17] MEDS: MoRPHine SULFATE 2 MG/ML CARP IV PRN (05:44)
[2025-03-17 07:02] LABS: Toxic Vacuolation 1+
[2025-03-17] MEDS: PLASMA-LYTE A 1,000 ML IV SCH (09:10)
[2025-03-17] MEDS ORDERED: SODIUM CHLORIDE 0.9% 100 ML IV PRN (09:26)
--- NOTE | 2025-03-17 09:28 | Critical Care Progress Note ---
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 Neurologic: Patient encephalopathic likely due to polypharmacy and metastatic burden of disease. Brain mets have not been completely ruled out as of yet. Patient would benefit from her MRI of the brain once stabilized. CT head was negative for acute finding. Patient with myoclonic jerking activity possibly due to polypharmacy. ABG unremarkable without evidence of hypercapnic respiratory failure. Uremia may be playing a role as well. Pulmonary: Patient with a recent history of metastatic adenocarcinoma to the right pleural space based on thoracentesis 03/09/2025. Repeat chest x-ray today. Oxygen requirements minimal and she is saturating well on room air. Chest x-ray 03/16/2025 with trace right pleural effusion and right basilar opacity favoring atelectasis. Cardiovascular: Maintain MAP above 65 mmHg. IV fluid boluses as needed. Pressors as needed. She is at risk for pulmonary embolism as anticoagulation has been on hold due to upper GI bleed from gastritis, but fortunately has an IVC filter in place. EKG 03/10/2025 with sinus tachycardia. Troponins mildly elevated. Will continue monitoring until peak. Probable demand ischemia. Gastrointestinal: Recent partial bowel obstruction. Patient on Protonix drip currently due to concerns of possible upper GI bleed. Trend hemoglobin. GI consultation appreciated. Renal: Patient with worsening SANDRA possibly prerenal and obstructive. Urine output poor and creatinine worsening. Continue Plasma-Lyte at 100 cc an hour. Consult nephrology. Infectious disease: Urine and blood cultures pending. Meropenem added per hospitalist service per my recommendation 03/16/25 to treat for undifferentiated sepsis. Continue vancomycin given history of positive MRSA screen. Hematologic: Hemoglobin 7.0. Will transfuse a unit of blood today. Endocrine: TSH normal. Maintain euglycemia. Maintain Ram catheter. He is supportive catheter pressors as needed. VTE prophylaxis: SCD CODE STATUS: DNR/DNI per palliative care discussion with palliative care team Family at bedside: Not available at bedside. Disposition: Okay to downgrade to PCU. Prognosis very poor due to his significant metastatic disease burden. Discussed in multidisciplinary rounds. I personally spent 45 minutes on the date of service in activities related to this patient's encounter, including 30 minutes of counseling with patient regarding treatment plan and 15 minutes of clinical review of lab results and documentation. I did probation counselor the patient regarding their diagnosis and treatment plan and they expressed understanding. This note was dictated using voice recognition software and may include grammatical errors, extra words, word substitutions and other inaccuracies due to errors in the voice recognition software and differences in speech patterns. Admission and Anticipated Discharge Date Admission Date: February 27, 2025 Subjective Patient complaining of pain all over today. She is hemodynamically stable. No significant issues on telemetry or overnight issues. Review of Systems Review of Systems: All systems reviewed & are unremarkable except as noted in HPI & below Physical Exam Constitutional: + ill appearing Eyes: PERRL, conjunctivae normal, anicteric sclerae Respiratory: no respiratory distress, no labored breathing, no cough and not tachypneic Auscultation: + diminished lung sounds Cardiovascular: RRR, no murmur, no edema Gastrointestinal (Abdomen): Ileostomy in place draining melanotic appearing liquid. Abdomen is soft and nontender. Skin: no rashes, warm and dry (Port-A-Cath in place.) Psychiatric: A+Ox3, euthymic affect Results & Data Results & Data Vital Signs (Past 12 Hours) Vital Signs Temp Pulse Resp BP Pulse Ox 03/17/25 07:47 110 H 03/17/25 05:00 104/59 L 03/17/25 05:00 104/59 L 03/17/25 05:00 104/59 L 03/17/25 05:00 104/59 L 03/17/25 05:00 100 H 20 91 03/17/25 04:51 105 H 22 98 03/17/25 04:42 101 H 20 97 03/17/25 04:31 119/66 03/17/25 04:31 119/66 03/17/25 04:31 119/66 03/17/25 04:31 119/66 03/17/25 04:31 119/66 03/17/25 04:30 102 H 22 91 03/17/25 04:21 104 H 17 93 12/10/25 04:18 36.5 C 03/17/25 04:12 94 H 17 100 03/17/25 04:03 103 H 19 98 03/17/25 04:00 103 H 15 03/17/25 03:45 98 H 17 96 03/17/25 03:30 107/68 03/17/25 03:30 107/68 03/17/25 03:30 107/68 03/17/25 03:30 107/68 03/17/25 03:30 107/68 03/17/25 03:30 99 H 14 95 03/17/25 03:15 100 H 20 94 03/17/25 03:00 98 H 18 92 03/17/25 03:00 88/69 L 03/17/25 03:00 88/69 L 03/17/25 03:00 88/69 L 03/17/25 03:00 88/69 L 03/17/25 03:00 88/69 L 03/17/25 02:45 100 H 24 97 03/17/25 02:30 103 H 19 97 03/17/25 02:30 97/54 L 03/17/25 02:30 97/54 L 03/17/25 02:30 97/54 L 03/17/25 02:30 97/54 L 03/17/25 02:30 97/54 L 03/17/25 02:15 98 03/17/25 02:00 112 H 15 90 03/17/25 02:00 102/78 03/17/25 02:00 102/78 03/17/25 02:00 102/78 03/17/25 02:00 102/78 03/17/25 01:45 99 H 21 94 03/17/25 01:30 113/79 03/17/25 01:30 113/79 03/17/25 01:30 113/79 03/17/25 01:30 113/79 03/17/25 01:30 113/79 03/17/25 01:30 108 H 16 97 03/17/25 01:15 110 H 20 95 03/17/25 01:07 36.5 C 03/17/25 01:00 98/68 L 03/17/25 01:00 98/68 L 03/17/25 01:00 98/68 L 03/17/25 01:00 98/68 L 03/17/25 01:00 98/68 L 03/17/25 01:00 98/68 L 03/17/25 01:00 98/68 L 03/17/25 01:00 98/68 L 03/17/25 01:00 98/68 L 03/17/25 01:00 102 H 19 91 03/17/25 00:45 104 H 10 L 91 03/17/25 00:30 106 H 14 95 03/17/25 00:30 95/69 L 03/17/25 00:30 95/69 L 03/17/25 00:30 95/69 L 03/17/25 00:30 95/69 L 03/17/25 00:30 95/69 L 03/17/25 00:15 103 H 12 98 03/17/25 00:01 97/73 L 03/17/25 00:01 97/73 L 03/17/25 00:01 97/73 L 03/17/25 00:01 97/73 L 03/17/25 00:01 97/73 L 03/17/25 00:00 109 H 03/17/25 00:00 107 H 20 96 03/16/25 23:45 107 H 12 96 03/16/25 23:30 101/70 03/16/25 23:30 101/70 03/16/25 23:30 108 H 18 97 03/16/25 23:30 101/70 03/16/25 23:30 101/70 03/16/25 23:30 101/70 03/16/25 23:15 108 H 17 97 03/16/25 23:00 99/71 L 03/16/25 23:00 99/71 L 03/16/25 23:00 99/71 L 03/16/25 23:00 99/71 L 03/16/25 23:00 99/71 L 03/16/25 23:00 110 H 20 95 03/16/25 22:45 110 H 20 93 03/16/25 22:30 103/68 03/16/25 22:30 103/68 03/16/25 22:30 103/68 03/16/25 22:30 103/68 03/16/25 22:30 103/68 03/16/25 22:30 113 H 22 94 03/16/25 22:15 113 H 20 95 03/16/25 22:00 111 H 24 92 03/16/25 22:00 90/71 L 03/16/25 22:00 90/71 L 03/16/25 22:00 90/71 L 03/16/25 22:00 90/71 L 03/16/25 21:45 111 H 16 96 03/16/25 21:30 103/73 03/16/25 21:30 103/73 03/16/25 21:30 103/73 03/16/25 21:30 103/73 03/16/25 21:30 103/73 03/16/25 21:30 112 H 13 93 Coding Level of Care Code 12386 SUB INP/OBS CARE 2/35MIN Diagnoses Hypovolemia E86.1 Sepsis A41.9 Altered mental status R41.82 Advanced care planning/counseling discussion Z71.89 Pleural effusion J90 Vomiting of fecal matter with nausea R11.13 Vomiting type: vomiting of fecal matter Partial small bowel obstruction K56.600 Anemia D64.9 Anemia type: unspecified type DVT (deep venous thrombosis) I82.409 (6) Nausea & vomiting Vomiting type: vomiting of fecal matter Qualified Code(s): R11.13 - Vomiting of fecal matter (8) Anemia Anemia type: unspecified type Qualified Code(s): D64.9 - Anemia, unspecified
--- NOTE | 2025-03-17 09:38 | Palliative Care Progress Note ---
Date of Service March 17, 2025 Assessment & Plan (1) Cancer related pain: (2) Abdominal pain: (3) Advanced care planning/counseling discussion: Plan: I met with Deanna and Ronny/ at bedside this morning for 45min then again with Ronny early afternoon for 20min. Total ACP time = 65min At first meeting, we discussed that Deanna's mental status is a *smidge* better today. Her kidney fucntion is a little worse. She is on PPN. I reviewed case with Dr. Zimmerman - we will get a CT non con Abd/pelv to see how kidneys are looking/is rise in renal dysfxn obstructive? Once we have that data then we can a decide on discussions re HD or no HD. Deanna reports uncontrolled pain, not much relief with MS so will increase TDF gently to 37.5mcg. Due to concerns for renal function, I stopped morphine and moved her to low dose prn Dilaudid for breakthrough. She is still self inducing vomiting/perhaps reflexic and not always as aware of what she is doing, so I stopped as many non essential oral meds and moved what I could to IV to help reduce her n/v triggers. Deanna and Ronny updated that I am in clinic tomorrow but always available by pager and can try to come over if I get a break in between patients. If there is any acute decline I can do a telemed visit. During my second ACp meeting with Ronny, we discussed the teams' concerns she is not much better spite of therapies - I expressed worry she is on the brink of worsening and he expressed agreement. We discussed how to explain this to their children juany the younger ones. We agreed it is important for the children to come visit her while she is a little more alert and can have a more meaningful interaction with them. We agreed that for now the goals remain to try and treat what is treatable/fix what's fixable but no CPR in event of a natural . They would accept escalated non invasive interventions as a bridge - such as pressors. We had agreed to a time limited trial for PPN - I suggested 72 hrs, so Saturday would be the date to evaluate if it is helping her get "better." A venting G tube can be considered for a QOL/comfort mgt perspective - would allow her tot elizabeth PO and reduce n/v however given her prior issues with procedures, ongoing frailty and complexity, it is felt she would need to be intubated. 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 (4) Partial small bowel obstruction: (5) Palliative care by specialist: Plan As above Thank you for allowing us to participate in the ongoing care of this patient. Please page with any additional concerns. Mikaela Hurst DNP Director, Palliative Medicine Admission and Anticipated Discharge Date Admission Date: February 27, 2025 Subjective Uneventful night remaisn confused and alert only to self echo reviewed overall prognosis is poor Review of Systems Review of Systems: Unobtainable due to cognitive status Results & Data Vital Signs (Past 12 Hours) Vital Signs Temp Pulse Resp BP Pulse Ox 03/17/25 07:47 110 H 03/17/25 05:00 104/59 L 03/17/25 05:00 104/59 L 03/17/25 05:00 104/59 L 03/17/25 05:00 104/59 L 03/17/25 05:00 100 H 20 91 03/17/25 04:51 105 H 22 98 03/17/25 04:42 101 H 20 97 03/17/25 04:31 119/66 03/17/25 04:31 119/66 03/17/25 04:31 119/66 03/17/25 04:31 119/66 03/17/25 04:31 119/66 03/17/25 04:30 102 H 22 91 03/17/25 04:21 104 H 17 93 03/17/25 04:18 36.5 C 03/17/25 04:12 94 H 17 100 03/17/25 04:03 103 H 19 98 03/17/25 04:00 103 H 15 03/17/25 03:45 98 H 17 96 03/17/25 03:30 107/68 03/17/25 03:30 107/68 03/17/25 03:30 107/68 03/17/25 03:30 107/68 03/17/25 03:30 107/68 03/17/25 03:30 99 H 14 95 03/17/25 03:15 100 H 20 94 03/17/25 03:00 98 H 18 92 03/17/25 03:00 88/69 L 03/17/25 03:00 88/69 L 03/17/25 03:00 88/69 L 03/17/25 03:00 88/69 L 03/17/25 03:00 88/69 L 03/17/25 02:45 100 H 24 97 03/17/25 02:30 103 H 19 97 03/17/25 02:30 97/54 L 03/17/25 02:30 97/54 L 03/17/25 02:30 97/54 L 03/17/25 02:30 97/54 L 03/17/25 02:30 97/54 L 03/17/25 02:15 98 03/17/25 02:00 112 H 15 90 03/17/25 02:00 102/78 03/17/25 02:00 102/78 03/17/25 02:00 102/78 03/17/25 02:00 102/78 03/17/25 01:45 99 H 21 94 03/17/25 01:30 113/79 03/17/25 01:30 113/79 03/17/25 01:30 113/79 03/17/25 01:30 113/79 03/17/25 01:30 113/79 03/17/25 01:30 108 H 16 97 03/17/25 01:15 110 H 20 95 03/17/25 01:07 36.5 C 03/17/25 01:00 98/68 L 03/17/25 01:00 98/68 L 03/17/25 01:00 98/68 L 03/17/25 01:00 98/68 L 03/17/25 01:00 98/68 L 03/17/25 01:00 98/68 L 03/17/25 01:00 98/68 L 03/17/25 01:00 98/68 L 03/17/25 01:00 98/68 L 03/17/25 01:00 102 H 19 91 03/17/25 00:45 104 H 10 L 91 03/17/25 00:30 106 H 14 95 03/17/25 00:30 95/69 L 03/17/25 00:30 95/69 L 03/17/25 00:30 95/69 L 03/17/25 00:30 95/69 L 03/17/25 00:30 95/69 L 03/17/25 00:15 103 H 12 98 03/17/25 00:01 97/73 L 03/17/25 00:01 97/73 L 03/17/25 00:01 97/73 L 03/17/25 00:01 97/73 L 03/17/25 00:01 97/73 L 03/17/25 00:00 109 H 03/17/25 00:00 107 H 20 96 03/16/25 23:45 107 H 12 96 03/16/25 23:30 101/70 03/16/25 23:30 101/70 03/16/25 23:30 108 H 18 97 03/16/25 23:30 101/70 03/16/25 23:30 101/70 03/16/25 23:30 101/70 03/16/25 23:15 108 H 17 97 03/16/25 23:00 99/71 L 03/16/25 23:00 99/71 L 03/16/25 23:00 99/71 L 03/16/25 23:00 99/71 L 03/16/25 23:00 99/71 L 03/16/25 23:00 110 H 20 95 03/16/25 22:45 110 H 20 93 03/16/25 22:30 103/68 03/16/25 22:30 103/68 03/16/25 22:30 103/68 03/16/25 22:30 103/68 03/16/25 22:30 103/68 03/16/25 22:30 113 H 22 94 03/16/25 22:15 113 H 20 95 03/16/25 22:00 111 H 24 92 03/16/25 22:00 90/71 L 03/16/25 22:00 90/71 L 03/16/25 22:00 90/71 L 03/16/25 22:00 90/71 L 03/16/25 21:45 111 H 16 96 Laboratory Results 03/17/25 03/17/25 03/17/25 Range/Units 02:07 02:00 00:11 WBC 12.82 H (4.8-10.8) K/ul RBC 2.76 L (4.20-5.40) M/uL Hgb 7.0 L (12.0-16.0) g/dL POC Hgb (12.0-16.0) g/dl Hct 23.2 L (37.0-47.0) % POC Hct (37-47) % MCV 84.1 (80.0-100.0) fL MCH 25.4 (25.0-34.0) pg MCHC 30.2 L (32.0-36.0) g/dL RDW Std Deviation 55.6 H (36.4-46.3) fL RDW Coeff of Mita 18.2 H (11.5-14.5) % Plt Count 160 (130-400) K/uL MPV 11.3 (9.4-12.4) fL Immature Gran % (Auto) 1.2 % Neut % (Auto) 83.1 % Lymph % (Auto) 6.2 % [place] % (Auto) 8.6 % Eos % (Auto) 0.6 % Baso % (Auto) 0.3 % Neut # (Auto) 10.66 H (1.40-6.50) K/uL Lymph # (Auto) 0.79 L (1.20-3.40) K/uL [place] # (Auto) 1.10 H (0.11-0.59) K/uL Eos # (Auto) 0.08 (0.00-0.50) K/uL Baso # (Auto) 0.04 (0.00-0.20) K/uL Immature Gran # (Auto) 0.15 (0.01-0.20) K/uL Toxic Vacuolation Polychromasia 1+ PT (9.0-12.0) Seconds INR (0.9-1.1) APTT (21-31) Seconds PTT Ratio Heparin Anti-Xa, Unfract (0.3-0.7) IU/ml Specimen Type Sample Site POC pH (7.35-7.45) POC pCO2 (35-46) mmHg POC pO2 (80-95) mmHg POC HCO3 (19-24) mmol/L POC Total CO2 (24-31) mmol/L POC Base Excess (-9-1.8) mmol/L O2 Sat Pulse Oximetry ABG pH (Temp Correct) (7.35-7.45) ABG pCO2 (Temp Corrct (35-46) mmHg POC ABG pO2 at Pt Temp POC ABG O2 Sat (90-95) % Vazquez Test VBG pH (7.36-7.41) VBG pCO2 (38-50) mmHg VBG pO2 mmHg VBG HCO3 mmol/L VBG O2 Saturation % VBG Base Excess mEq/L O2 Delivery Device POC Sodium (135-144) mmol/L Sodium 134 L (136-145) mmol/L POC Potassium (3.3-5.0) mmol/L Potassium 4.6 (3.5-5.1) mmol/L Chloride 99 (98-107) mmol/L Carbon Dioxide 26 (21-32) mmol/L Anion Gap 9 (3-11) BUN 46 H (6-23) mg/dl Creatinine 2.35 H D (0.6-1.2) mg/dl Est Cr Clr Drug Dosing 28.8 ml/min eGFR 25.71 BUN/Creatinine Ratio 19.6 (10-20) Glucose 136 H (70-99(Fasting)) mg/dl POC Glucose 150 H (70-99) mg/dl Lactate (0.4-2.0) mmol/L Calcium 8.3 L (8.6-10.3) mg/dl Phosphorus 4.2 (2.5-4.9) mg/dl Magnesium 2.5 H (1.7-2.4) mg/dl Total Bilirubin (0.2-1.0) mg/dl Direct Bilirubin (0-0.2) mg/dl AST (13-39) U/L ALT (7-52) U/L Alkaline Phosphatase (34-104) U/L Troponin I High Sens 111.6 H* D (0-14) pg/ml Total Protein (6.0-8.3) gm/dl Albumin (3.4-5.0) gm/dl Globulin (2.5-4.0) gm/dl Albumin/Globulin Ratio (0.9-2) Triglycerides (0-150) mg/dl TSH (0.300-4.500) uIu/ml Urine Color Urine Appearance (Clear) Urine pH (4.5-7.5) Ur Specific Philip (1.000-1.030) Urine Protein (Negative) Urine Glucose (UA) (Negative) Urine Ketones (Negative) Urine Blood (Negative) Urine Nitrite (Negative) Urine Bilirubin (Negative) Urine Urobilinogen (Negative) Ur Leukocyte Esterase (Negative) Urine WBC (Auto) (0-5) /hpf Urine RBC (Auto) (0-2) /hpf U Hyaline Cast (Auto) (0-2) /lpf U Epithel Cells (Auto) (0-2) /hpf Urine Bacteria (Auto) (None Seen) Urine Comment Pleural Cholesterol mg/dL Gastric Fluid pH Gastric Occult Blood (Negative) Random Vancomycin 33.9 H* (10-20) mcg/ml Misc Genetic Test Blood Type Antibody Screen Crossmatch 03/16/25 03/16/25 03/16/25 Range/Units Unknown 20:27 17:25 WBC (4.8-10.8) K/ul RBC (4.20-5.40) M/uL Hgb 7.2 L (12.0-16.0) g/dL POC Hgb (12.0-16.0) g/dl Hct 23.0 L (37.0-47.0) % POC Hct (37-47) % MCV (80.0-100.0) fL MCH (25.0-34.0) pg MCHC (32.0-36.0) g/dL RDW Std Deviation (36.4-46.3) fL RDW Coeff of Mita (11.5-14.5) % Plt Count (130-400) K/uL MPV (9.4-12.4) fL Immature Gran % (Auto) % Neut % (Auto) % Lymph % (Auto) % [place] % (Auto) % Eos % (Auto) % Baso % (Auto) % Neut # (Auto) (1.40-6.50) K/uL Lymph # (Auto) (1.20-3.40) K/uL [place] # (Auto) (0.11-0.59) K/uL Eos # (Auto) (0.00-0.50) K/uL Baso # (Auto) (0.00-0.20) K/uL Immature Gran # (Auto) (0.01-0.20) K/uL Toxic Vacuolation Polychromasia PT (9.0-12.0) Seconds INR (0.9-1.1) APTT (21-31) Seconds PTT Ratio Heparin Anti-Xa, Unfract (0.3-0.7) IU/ml Specimen Type Sample Site POC pH (7.35-7.45) POC pCO2 (35-46) mmHg POC pO2 (80-95) mmHg POC HCO3 (19-24) mmol/L POC Total CO2 (24-31) mmol/L POC Base Excess (-9-1.8) mmol/L O2 Sat Pulse Oximetry ABG pH (Temp Correct) (7.35-7.45) ABG pCO2 (Temp Corrct (35-46) mmHg POC ABG pO2 at Pt Temp POC ABG O2 Sat (90-95) % Vazquez Test VBG pH (7.36-7.41) VBG pCO2 (38-50) mmHg VBG pO2 mmHg VBG HCO3 mmol/L VBG O2 Saturation % VBG Base Excess mEq/L O2 Delivery Device POC Sodium (135-144) mmol/L Sodium (136-145) mmol/L POC Potassium (3.3-5.0) mmol/L Potassium (3.5-5.1) mmol/L Chloride (98-107) mmol/L Carbon Dioxide (21-32) mmol/L Anion Gap (3-11) BUN (6-23) mg/dl Creatinine (0.6-1.2) mg/dl Est Cr Clr Drug Dosing ml/min eGFR BUN/Creatinine Ratio (10-20) Glucose (70-99(Fasting)) mg/dl POC Glucose (70-99) mg/dl Lactate (0.4-2.0) mmol/L Calcium (8.6-10.3) mg/dl Phosphorus (2.5-4.9) mg/dl Magnesium (1.7-2.4) mg/dl Total Bilirubin (0.2-1.0) mg/dl Direct Bilirubin (0-0.2) mg/dl AST (13-39) U/L ALT (7-52) U/L Alkaline Phosphatase (34-104) U/L Troponin I High Sens 78.7 H* D (0-14) pg/ml Total Protein (6.0-8.3) gm/dl Albumin (3.4-5.0) gm/dl Globulin (2.5-4.0) gm/dl Albumin/Globulin Ratio (0.9-2) Triglycerides (0-150) mg/dl TSH (0.300-4.500) uIu/ml Urine Color [place] Urine Appearance Turbid A (Clear) Urine pH 6.0 (4.5-7.5) Ur Specific Philip 1.026 (1.000-1.030) Urine Protein 3+ H (Negative) Urine Glucose (UA) Trace H (Negative) Urine Ketones Trace H (Negative) Urine Blood 3+ H (Negative) Urine Nitrite Negative (Negative) Urine Bilirubin 1+ H (Negative) Urine Urobilinogen Negative (Negative) Ur Leukocyte Esterase 1+ H (Negative) Urine WBC (Auto) 0-5 (0-5) /hpf Urine RBC (Auto) >20 H (0-2) /hpf U Hyaline Cast (Auto) 0-2 (0-2) /lpf U Epithel Cells (Auto) 3-5 H (0-2) /hpf Urine Bacteria (Auto) 4+ H (None Seen) Urine Comment Pleural Cholesterol mg/dL Gastric Fluid pH Gastric Occult Blood (Negative) Random Vancomycin (10-20) mcg/ml Misc Genetic Test Blood Type Antibody Screen Crossmatch 03/16/25 03/16/25 03/16/25 Range/Units 17:20 13:49 13:21 WBC (4.8-10.8) K/ul RBC (4.20-5.40) M/uL Hgb (12.0-16.0) g/dL POC Hgb 7.5 L (12.0-16.0) g/dl Hct (37.0-47.0) % POC Hct 22 L (37-47) % MCV (80.0-100.0) fL MCH (25.0-34.0) pg MCHC (32.0-36.0) g/dL RDW Std Deviation (36.4-46.3) fL RDW Coeff of Mita (11.5-14.5) % Plt Count (130-400) K/uL MPV (9.4-12.4) fL Immature Gran % (Auto) % Neut % (Auto) % Lymph % (Auto) % [place] % (Auto) % Eos % (Auto) % Baso % (Auto) % Neut # (Auto) (1.40-6.50) K/uL Lymph # (Auto) (1.20-3.40) K/uL [place] # (Auto) (0.11-0.59) K/uL Eos # (Auto) (0.00-0.50) K/uL Baso # (Auto) (0.00-0.20) K/uL Immature Gran # (Auto) (0.01-0.20) K/uL Toxic Vacuolation Polychromasia PT (9.0-12.0) Seconds INR (0.9-1.1) APTT (21-31) Seconds PTT Ratio Heparin Anti-Xa, Unfract (0.3-0.7) IU/ml Specimen Type Arterial Sample Site L Radial POC pH 7.45 (7.35-7.45) POC pCO2 35 (35-46) mmHg POC pO2 68 L (80-95) mmHg POC HCO3 24 (19-24) mmol/L POC Total CO2 25 (24-31) mmol/L POC Base Excess 0.0 (-9-1.8) mmol/L O2 Sat Pulse Oximetry 95 ABG pH (Temp Correct) 7.447 (7.35-7.45) ABG pCO2 (Temp Corrct 35 (35-46) mmHg POC ABG pO2 at Pt Temp 68 POC ABG O2 Sat 94.0 (90-95) % Vazquez Test Pass VBG pH (7.36-7.41) VBG pCO2 (38-50) mmHg VBG pO2 mmHg VBG HCO3 mmol/L VBG O2 Saturation % VBG Base Excess mEq/L O2 Delivery Device Room Air POC Sodium 131 L (135-144) mmol/L Sodium (136-145) mmol/L POC Potassium 4.8 (3.3-5.0) mmol/L Potassium (3.5-5.1) mmol/L Chloride (98-107) mmol/L Carbon Dioxide (21-32) mmol/L Anion Gap (3-11) BUN (6-23) mg/dl Creatinine (0.6-1.2) mg/dl Est Cr Clr Drug Dosing ml/min eGFR BUN/Creatinine Ratio (10-20) Glucose (70-99(Fasting)) mg/dl POC Glucose 149 H (70-99) mg/dl Lactate (0.4-2.0) mmol/L Calcium (8.6-10.3) mg/dl Phosphorus (2.5-4.9) mg/dl Magnesium (1.7-2.4) mg/dl Total Bilirubin (0.2-1.0) mg/dl Direct Bilirubin (0-0.2) mg/dl AST (13-39) U/L ALT (7-52) U/L Alkaline Phosphatase (34-104) U/L Troponin I High Sens (0-14) pg/ml Total Protein (6.0-8.3) gm/dl Albumin (3.4-5.0) gm/dl Globulin (2.5-4.0) gm/dl Albumin/Globulin Ratio (0.9-2) Triglycerides (0-150) mg/dl TSH (0.300-4.500) uIu/ml Urine Color Urine Appearance (Clear) Urine pH (4.5-7.5) Ur Specific Philip (1.000-1.030) Urine Protein (Negative) Urine Glucose (UA) (Negative) Urine Ketones (Negative) Urine Blood (Negative) Urine Nitrite (Negative) Urine Bilirubin (Negative) Urine Urobilinogen (Negative) Ur Leukocyte Esterase (Negative) Urine WBC (Auto) (0-5) /hpf Urine RBC (Auto) (0-2) /hpf U Hyaline Cast (Auto) (0-2) /lpf U Epithel Cells (Auto) (0-2) /hpf Urine Bacteria (Auto) (None Seen) Urine Comment Pleural Cholesterol mg/dL Gastric Fluid pH Gastric Occult Blood (Negative) Random Vancomycin (10-20) mcg/ml Misc Genetic Test Blood Type Pending Antibody Screen Pending Crossmatch See Detail 03/16/25 03/16/25 03/16/25 Range/Units 13:20 12:53 11:38 WBC 10.79 (4.8-10.8) K/ul RBC 2.77 L (4.20-5.40) M/uL Hgb 7.1 L (12.0-16.0) g/dL POC Hgb (12.0-16.0) g/dl Hct 23.2 L (37.0-47.0) % POC Hct (37-47) % MCV 83.8 (80.0-100.0) fL MCH 25.6 (25.0-34.0) pg MCHC 30.6 L (32.0-36.0) g/dL RDW Std Deviation 55.1 H (36.4-46.3) fL RDW Coeff of Mita 18.2 H (11.5-14.5) % Plt Count 138 (130-400) K/uL MPV 10.6 (9.4-12.4) fL Immature Gran % (Auto) 0.6 % Neut % (Auto) 83.5 % Lymph % (Auto) 6.1 % [place] % (Auto) 9.2 % Eos % (Auto) 0.4 % Baso % (Auto) 0.2 % Neut # (Auto) 9.02 H (1.40-6.50) K/uL Lymph # (Auto) 0.66 L (1.20-3.40) K/uL [place] # (Auto) 0.99 H (0.11-0.59) K/uL Eos # (Auto) 0.04 (0.00-0.50) K/uL Baso # (Auto) 0.02 (0.00-0.20) K/uL Immature Gran # (Auto) 0.06 (0.01-0.20) K/uL Toxic Vacuolation 1+ Polychromasia PT (9.0-12.0) Seconds INR (0.9-1.1) APTT (21-31) Seconds PTT Ratio Heparin Anti-Xa, Unfract (0.3-0.7) IU/ml Specimen Type Sample Site POC pH (7.35-7.45) POC pCO2 (35-46) mmHg POC pO2 (80-95) mmHg POC HCO3 (19-24) mmol/L POC Total CO2 (24-31) mmol/L POC Base Excess (-9-1.8) mmol/L O2 Sat Pulse Oximetry ABG pH (Temp Correct) (7.35-7.45) ABG pCO2 (Temp Corrct (35-46) mmHg POC ABG pO2 at Pt Temp POC ABG O2 Sat (90-95) % Vazquez Test VBG pH (7.36-7.41) VBG pCO2 (38-50) mmHg VBG pO2 mmHg VBG HCO3 mmol/L VBG O2 Saturation % VBG Base Excess mEq/L O2 Delivery Device POC Sodium (135-144) mmol/L Sodium 136 135 L (136-145) mmol/L POC Potassium (3.3-5.0) mmol/L Potassium 4.9 4.9 (3.5-5.1) mmol/L Chloride 100 98 (98-107) mmol/L Carbon Dioxide 27 27 (21-32) mmol/L Anion Gap 9 10 (3-11) BUN 39 H 42 H (6-23) mg/dl Creatinine 1.93 H 2.09 H D (0.6-1.2) mg/dl Est Cr Clr Drug Dosing 35.1 32.4 ml/min eGFR 32.57 29.60 BUN/Creatinine Ratio 20.2 H 20.1 H (10-20) Glucose 122 H 157 H (70-99(Fasting)) mg/dl POC Glucose 133 H (70-99) mg/dl Lactate 1.9 (0.4-2.0) mmol/L Calcium 8.1 L 8.7 (8.6-10.3) mg/dl Phosphorus 4.9 (2.5-4.9) mg/dl Magnesium 2.7 H (1.7-2.4) mg/dl Total Bilirubin 0.4 (0.2-1.0) mg/dl Direct Bilirubin (0-0.2) mg/dl AST 34 (13-39) U/L ALT 11 (7-52) U/L Alkaline Phosphatase 222 H (34-104) U/L Troponin I High Sens 59.6 H* (0-14) pg/ml Total Protein 5.3 L (6.0-8.3) gm/dl Albumin 2.5 L (3.4-5.0) gm/dl Globulin 2.8 (2.5-4.0) gm/dl Albumin/Globulin Ratio 0.9 (0.9-2) Triglycerides 206 H (0-150) mg/dl TSH 1.094 (0.300-4.500) uIu/ml Urine Color Urine Appearance (Clear) Urine pH (4.5-7.5) Ur Specific [place] (1.000-1.030) Urine Protein (Negative) Urine Glucose (UA) (Negative) Urine Ketones (Negative) Urine Blood (Negative) Urine Nitrite (Negative) Urine Bilirubin (Negative) Urine Urobilinogen (Negative) Ur Leukocyte Esterase (Negative) Urine WBC (Auto) (0-5) /hpf Urine RBC (Auto) (0-2) /hpf U Hyaline Cast (Auto) (0-2) /lpf U Epithel Cells (Auto) (0-2) /hpf Urine Bacteria (Auto) (None Seen) Urine Comment Pleural Cholesterol mg/dL Gastric Fluid pH Gastric Occult Blood (Negative) Random Vancomycin (10-20) mcg/ml Misc Genetic Test Blood Type Antibody Screen Crossmatch 03/16/25 03/16/25 03/16/25 Range/Units 10:04 05:27 01:43 WBC (4.8-10.8) K/ul RBC (4.20-5.40) M/uL Hgb 8.1 L 8.0 L (12.0-16.0) g/dL POC Hgb (12.0-16.0) g/dl Hct 26.4 L 27.2 L (37.0-47.0) % POC Hct (37-47) % MCV (80.0-100.0) fL MCH (25.0-34.0) pg MCHC (32.0-36.0) g/dL RDW Std Deviation (36.4-46.3) fL RDW Coeff of Mita (11.5-14.5) % Plt Count (130-400) K/uL MPV (9.4-12.4) fL Immature Gran % (Auto) % Neut % (Auto) % Lymph % (Auto) % [place] % (Auto) % Eos % (Auto) % Baso % (Auto) % Neut # (Auto) (1.40-6.50) K/uL Lymph # (Auto) (1.20-3.40) K/uL [place] # (Auto) (0.11-0.59) K/uL Eos # (Auto) (0.00-0.50) K/uL Baso # (Auto) (0.00-0.20) K/uL Immature Gran # (Auto) (0.01-0.20) K/uL Toxic Vacuolation Polychromasia PT 14.5 H (9.0-12.0) Seconds INR 1.4 H (0.9-1.1) APTT 28 (21-31) Seconds PTT Ratio 1.0 Heparin Anti-Xa, Unfract (0.3-0.7) IU/ml Specimen Type Sample Site POC pH (7.35-7.45) POC pCO2 (35-46) mmHg POC pO2 (80-95) mmHg POC HCO3 (19-24) mmol/L POC Total CO2 (24-31) mmol/L POC Base Excess (-9-1.8) mmol/L O2 Sat Pulse Oximetry ABG pH (Temp Correct) (7.35-7.45) ABG pCO2 (Temp Corrct (35-46) mmHg POC ABG pO2 at Pt Temp POC ABG O2 Sat (90-95) % Vazquez Test VBG pH (7.36-7.41) VBG pCO2 (38-50) mmHg VBG pO2 mmHg VBG HCO3 mmol/L VBG O2 Saturation % VBG Base Excess mEq/L O2 Delivery Device POC Sodium (135-144) mmol/L Sodium (136-145) mmol/L POC Potassium (3.3-5.0) mmol/L Potassium (3.5-5.1) mmol/L Chloride (98-107) mmol/L Carbon Dioxide (21-32) mmol/L Anion Gap (3-11) BUN (6-23) mg/dl Creatinine 1.64 H D (0.6-1.2) mg/dl Est Cr Clr Drug Dosing 41.3 ml/min eGFR 39.59 BUN/Creatinine Ratio (10-20) Glucose (70-99(Fasting)) mg/dl POC Glucose (70-99) mg/dl Lactate (0.4-2.0) mmol/L Calcium (8.6-10.3) mg/dl Phosphorus (2.5-4.9) mg/dl Magnesium (1.7-2.4) mg/dl Total Bilirubin 0.4 (0.2-1.0) mg/dl Direct Bilirubin 0.1 (0-0.2) mg/dl AST 23 (13-39) U/L ALT 10 (7-52) U/L Alkaline Phosphatase 265 H (34-104) U/L Troponin I High Sens (0-14) pg/ml Total Protein 6.3 (6.0-8.3) gm/dl Albumin 2.9 L (3.4-5.0) gm/dl Globulin (2.5-4.0) gm/dl Albumin/Globulin Ratio (0.9-2) Triglycerides (0-150) mg/dl TSH (0.300-4.500) uIu/ml Urine Color Urine Appearance (Clear) Urine pH (4.5-7.5) Ur Specific Philip (1.000-1.030) Urine Protein (Negative) Urine Glucose (UA) (Negative) Urine Ketones (Negative) Urine Blood (Negative) Urine Nitrite (Negative) Urine Bilirubin (Negative) Urine Urobilinogen (Negative) Ur Leukocyte Esterase (Negative) Urine WBC (Auto) (0-5) /hpf Urine RBC (Auto) (0-2) /hpf U Hyaline Cast (Auto) (0-2) /lpf U Epithel Cells (Auto) (0-2) /hpf Urine Bacteria (Auto) (None Seen) Urine Comment Pleural Cholesterol mg/dL Gastric Fluid pH 4 Gastric Occult Blood Positive A (Negative) Random Vancomycin (10-20) mcg/ml Misc Genetic Test Blood Type Antibody Screen Crossmatch 03/15/25 03/15/25 03/15/25 Range/Units 06:49 06:46 06:00 WBC 7.66 7.99 (4.8-10.8) K/ul RBC 3.41 L 3.49 L (4.20-5.40) M/uL Hgb 8.8 L 9.0 L (12.0-16.0) g/dL POC Hgb (12.0-16.0) g/dl Hct 28.7 L 28.9 L (37.0-47.0) % POC Hct (37-47) % MCV 84.2 82.8 (80.0-100.0) fL MCH 25.8 25.8 (25.0-34.0) pg MCHC 30.7 L 31.1 L (32.0-36.0) g/dL RDW Std Deviation 56.1 H 56.6 H (36.4-46.3) fL RDW Coeff of Mita 18.5 H 18.7 H (11.5-14.5) % Plt Count 180 184 (130-400) K/uL MPV 10.4 10.2 (9.4-12.4) fL Immature Gran % (Auto) 0.8 0.4 % Neut % (Auto) 75.4 75.5 % Lymph % (Auto) 9.0 9.1 % [place] % (Auto) 12.9 13.1 % Eos % (Auto) 1.6 1.5 % Baso % (Auto) 0.3 0.4 % Neut # (Auto) 5.78 6.03 (1.40-6.50) K/uL Lymph # (Auto) 0.69 L 0.73 L (1.20-3.40) K/uL [place] # (Auto) 0.99 H 1.05 H (0.11-0.59) K/uL Eos # (Auto) 0.12 0.12 (0.00-0.50) K/uL Baso # (Auto) 0.02 0.03 (0.00-0.20) K/uL Immature Gran # (Auto) 0.06 0.03 (0.01-0.20) K/uL Toxic Vacuolation Polychromasia PT (9.0-12.0) Seconds INR (0.9-1.1) APTT (21-31) Seconds PTT Ratio Heparin Anti-Xa, Unfract (0.3-0.7) IU/ml Specimen Type Sample Site POC pH (7.35-7.45) POC pCO2 (35-46) mmHg POC pO2 (80-95) mmHg POC HCO3 (19-24) mmol/L POC Total CO2 (24-31) mmol/L POC Base Excess (-9-1.8) mmol/L O2 Sat Pulse Oximetry ABG pH (Temp Correct) (7.35-7.45) ABG pCO2 (Temp Corrct (35-46) mmHg POC ABG pO2 at Pt Temp POC ABG O2 Sat (90-95) % Vazquez Test VBG pH 7.41 (7.36-7.41) VBG pCO2 43 (38-50) mmHg VBG pO2 < 20 mmHg VBG HCO3 27 mmol/L VBG O2 Saturation < 60.0 % VBG Base Excess 2.4 mEq/L O2 Delivery Device POC Sodium (135-144) mmol/L Sodium 137 137 (136-145) mmol/L POC Potassium (3.3-5.0) mmol/L Potassium 4.4 4.5 (3.5-5.1) mmol/L Chloride 97 L 96 L (98-107) mmol/L Carbon Dioxide 26 27 (21-32) mmol/L Anion Gap 14 H 14 H (3-11) BUN 28 H 27 H (6-23) mg/dl Creatinine 1.17 1.18 (0.6-1.2) mg/dl Est Cr Clr Drug Dosing 57.7 57.3 ml/min eGFR 59.38 58.77 BUN/Creatinine Ratio 23.9 H 22.9 H (10-20) Glucose 102 H 105 H (70-99(Fasting)) mg/dl POC Glucose (70-99) mg/dl Lactate (0.4-2.0) mmol/L Calcium 8.6 8.7 (8.6-10.3) mg/dl Phosphorus 4.0 (2.5-4.9) mg/dl Magnesium 2.2 2.3 (1.7-2.4) mg/dl Total Bilirubin 0.5 0.5 (0.2-1.0) mg/dl Direct Bilirubin (0-0.2) mg/dl AST 22 22 (13-39) U/L ALT 10 10 (7-52) U/L Alkaline Phosphatase 260 H 276 H (34-104) U/L Troponin I High Sens (0-14) pg/ml Total Protein 6.2 6.5 (6.0-8.3) gm/dl Albumin 2.9 L 3.1 L (3.4-5.0) gm/dl Globulin 3.3 3.4 (2.5-4.0) gm/dl Albumin/Globulin Ratio 0.9 0.9 (0.9-2) Triglycerides (0-150) mg/dl TSH (0.300-4.500) uIu/ml Urine Color Urine Appearance (Clear) Urine pH (4.5-7.5) Ur Specific Philip (1.000-1.030) Urine Protein (Negative) Urine Glucose (UA) (Negative) Urine Ketones (Negative) Urine Blood (Negative) Urine Nitrite (Negative) Urine Bilirubin (Negative) Urine Urobilinogen (Negative) Ur Leukocyte Esterase (Negative) Urine WBC (Auto) (0-5) /hpf Urine RBC (Auto) (0-2) /hpf U Hyaline Cast (Auto) (0-2) /lpf U Epithel Cells (Auto) (0-2) /hpf Urine Bacteria (Auto) (None Seen) Urine Comment Pleural Cholesterol mg/dL Gastric Fluid pH Gastric Occult Blood (Negative) Random Vancomycin 33.1 H* (10-20) mcg/ml Misc Genetic Test Blood Type Antibody Screen Crossmatch 03/14/25 03/12/25 03/12/25 Range/Units 05:54 10:01 06:03 WBC 12.02 H (4.8-10.8) K/ul RBC 3.44 L (4.20-5.40) M/uL Hgb 8.8 L (12.0-16.0) g/dL POC Hgb (12.0-16.0) g/dl Hct 27.9 L (37.0-47.0) % POC Hct (37-47) % MCV 81.1 (80.0-100.0) fL MCH 25.6 (25.0-34.0) pg MCHC 31.5 L (32.0-36.0) g/dL RDW Std Deviation 54.9 H (36.4-46.3) fL RDW Coeff of Mita 19.0 H (11.5-14.5) % Plt Count 154 (130-400) K/uL MPV 10.4 (9.4-12.4) fL Immature Gran % (Auto) 0.6 % Neut % (Auto) 76.5 % Lymph % (Auto) 10.7 % [place] % (Auto) 9.3 % Eos % (Auto) 2.6 % Baso % (Auto) 0.3 % Neut # (Auto) 9.19 H (1.40-6.50) K/uL Lymph # (Auto) 1.29 (1.20-3.40) K/uL [place] # (Auto) 1.12 H (0.11-0.59) K/uL Eos # (Auto) 0.31 (0.00-0.50) K/uL Baso # (Auto) 0.04 (0.00-0.20) K/uL Immature Gran # (Auto) 0.07 (0.01-0.20) K/uL Toxic Vacuolation Polychromasia PT (9.0-12.0) Seconds INR (0.9-1.1) APTT (21-31) Seconds PTT Ratio Heparin Anti-Xa, Unfract < 0.10 L (0.3-0.7) IU/ml Specimen Type Sample Site POC pH (7.35-7.45) POC pCO2 (35-46) mmHg POC pO2 (80-95) mmHg POC HCO3 (19-24) mmol/L POC Total CO2 (24-31) mmol/L POC Base Excess (-9-1.8) mmol/L O2 Sat Pulse Oximetry ABG pH (Temp Correct) (7.35-7.45) ABG pCO2 (Temp Corrct (35-46) mmHg POC ABG pO2 at Pt Temp POC ABG O2 Sat (90-95) % Vazquez Test VBG pH (7.36-7.41) VBG pCO2 (38-50) mmHg VBG pO2 mmHg VBG HCO3 mmol/L VBG O2 Saturation % VBG Base Excess mEq/L O2 Delivery Device POC Sodium (135-144) mmol/L Sodium 135 L (136-145) mmol/L POC Potassium (3.3-5.0) mmol/L Potassium 4.3 (3.5-5.1) mmol/L Chloride 96 L (98-107) mmol/L Carbon Dioxide 29 (21-32) mmol/L Anion Gap 10 (3-11) BUN 17 (6-23) mg/dl Creatinine 1.07 0.78 (0.6-1.2) mg/dl Est Cr Clr Drug Dosing 63.3 86.0 ml/min eGFR 66.10 96.59 BUN/Creatinine Ratio 21.8 H (10-20) Glucose 88 (70-99(Fasting)) mg/dl POC Glucose (70-99) mg/dl Lactate (0.4-2.0) mmol/L Calcium 8.4 L (8.6-10.3) mg/dl Phosphorus (2.5-4.9) mg/dl Magnesium (1.7-2.4) mg/dl Total Bilirubin (0.2-1.0) mg/dl Direct Bilirubin (0-0.2) mg/dl AST (13-39) U/L ALT (7-52) U/L Alkaline Phosphatase (34-104) U/L Troponin I High Sens (0-14) pg/ml Total Protein (6.0-8.3) gm/dl Albumin (3.4-5.0) gm/dl Globulin (2.5-4.0) gm/dl Albumin/Globulin Ratio (0.9-2) Triglycerides (0-150) mg/dl TSH (0.300-4.500) uIu/ml Urine Color Urine Appearance (Clear) Urine pH (4.5-7.5) Ur Specific Philip (1.000-1.030) Urine Protein (Negative) Urine Glucose (UA) (Negative) Urine Ketones (Negative) Urine Blood (Negative) Urine Nitrite (Negative) Urine Bilirubin (Negative) Urine Urobilinogen (Negative) Ur Leukocyte Esterase (Negative) Urine WBC (Auto) (0-5) /hpf Urine RBC (Auto) (0-2) /hpf U Hyaline Cast (Auto) (0-2) /lpf U Epithel Cells (Auto) (0-2) /hpf Urine Bacteria (Auto) (None Seen) Urine Comment Pleural Cholesterol mg/dL Gastric Fluid pH Gastric Occult Blood (Negative) Random Vancomycin 17.9 (10-20) mcg/ml Misc Genetic Test Blood Type Antibody Screen Crossmatch 03/11/25 03/10/25 03/10/25 Range/Units 04:01 21:20 20:36 WBC 11.82 H (4.8-10.8) K/ul RBC 2.85 L (4.20-5.40) M/uL Hgb 7.3 L (12.0-16.0) g/dL POC Hgb (12.0-16.0) g/dl Hct 23.7 L (37.0-47.0) % POC Hct (37-47) % MCV 83.2 (80.0-100.0) fL MCH 25.6 (25.0-34.0) pg MCHC 30.8 L (32.0-36.0) g/dL RDW Std Deviation 58.3 H (36.4-46.3) fL RDW Coeff of Mita 19.3 H (11.5-14.5) % Plt Count 151 (130-400) K/uL MPV 10.3 (9.4-12.4) fL Immature Gran % (Auto) 0.4 % Neut % (Auto) 76.0 % Lymph % (Auto) 11.8 % [place] % (Auto) 8.9 % Eos % (Auto) 2.7 % Baso % (Auto) 0.2 % Neut # (Auto) 8.98 H (1.40-6.50) K/uL Lymph # (Auto) 1.40 (1.20-3.40) K/uL [place] # (Auto) 1.05 H (0.11-0.59) K/uL Eos # (Auto) 0.32 (0.00-0.50) K/uL Baso # (Auto) 0.02 (0.00-0.20) K/uL Immature Gran # (Auto) 0.05 (0.01-0.20) K/uL Toxic Vacuolation Polychromasia 1+ PT (9.0-12.0) Seconds INR (0.9-1.1) APTT (21-31) Seconds PTT Ratio Heparin Anti-Xa, Unfract 0.36 0.26 L (0.3-0.7) IU/ml Specimen Type Sample Site POC pH (7.35-7.45) POC pCO2 (35-46) mmHg POC pO2 (80-95) mmHg POC HCO3 (19-24) mmol/L POC Total CO2 (24-31) mmol/L POC Base Excess (-9-1.8) mmol/L O2 Sat Pulse Oximetry ABG pH (Temp Correct) (7.35-7.45) ABG pCO2 (Temp Corrct (35-46) mmHg POC ABG pO2 at Pt Temp POC ABG O2 Sat (90-95) % Vazquez Test VBG pH (7.36-7.41) VBG pCO2 (38-50) mmHg VBG pO2 mmHg VBG HCO3 mmol/L VBG O2 Saturation % VBG Base Excess mEq/L O2 Delivery Device POC Sodium (135-144) mmol/L Sodium 134 L (136-145) mmol/L POC Potassium (3.3-5.0) mmol/L Potassium 4.0 (3.5-5.1) mmol/L Chloride 94 L (98-107) mmol/L Carbon Dioxide 32 (21-32) mmol/L Anion Gap 8 (3-11) BUN 19 (6-23) mg/dl Creatinine 0.94 (0.6-1.2) mg/dl Est Cr Clr Drug Dosing 71.2 ml/min eGFR 77.21 BUN/Creatinine Ratio 20.2 H (10-20) Glucose 92 (70-99(Fasting)) mg/dl POC Glucose 107 H (70-99) mg/dl Lactate (0.4-2.0) mmol/L Calcium 8.1 L (8.6-10.3) mg/dl Phosphorus 3.1 (2.5-4.9) mg/dl Magnesium 1.9 (1.7-2.4) mg/dl Total Bilirubin 0.4 (0.2-1.0) mg/dl Direct Bilirubin (0-0.2) mg/dl AST 21 (13-39) U/L ALT 10 (7-52) U/L Alkaline Phosphatase 223 H (34-104) U/L Troponin I High Sens (0-14) pg/ml Total Protein 5.8 L (6.0-8.3) gm/dl Albumin 2.8 L (3.4-5.0) gm/dl Globulin 3.0 (2.5-4.0) gm/dl Albumin/Globulin Ratio 0.9 (0.9-2) Triglycerides (0-150) mg/dl TSH (0.300-4.500) uIu/ml Urine Color Urine Appearance (Clear) Urine pH (4.5-7.5) Ur Specific Philip (1.000-1.030) Urine Protein (Negative) Urine Glucose (UA) (Negative) Urine Ketones (Negative) Urine Blood (Negative) Urine Nitrite (Negative) Urine Bilirubin (Negative) Urine Urobilinogen (Negative) Ur Leukocyte Esterase (Negative) Urine WBC (Auto) (0-5) /hpf Urine RBC (Auto) (0-2) /hpf U Hyaline Cast (Auto) (0-2) /lpf U Epithel Cells (Auto) (0-2) /hpf Urine Bacteria (Auto) (None Seen) Urine Comment Pleural Cholesterol mg/dL Gastric Fluid pH Gastric Occult Blood (Negative) Random Vancomycin (10-20) mcg/ml Misc Genetic Test Blood Type Antibody Screen Crossmatch 03/10/25 03/09/25 Range/Units 08:22 Unknown WBC (4.8-10.8) K/ul RBC (4.20-5.40) M/uL Hgb (12.0-16.0) g/dL POC Hgb (12.0-16.0) g/dl Hct (37.0-47.0) % POC Hct (37-47) % MCV (80.0-100.0) fL MCH (25.0-34.0) pg MCHC (32.0-36.0) g/dL RDW Std Deviation (36.4-46.3) fL RDW Coeff of Mita (11.5-14.5) % Plt Count (130-400) K/uL MPV (9.4-12.4) fL Immature Gran % (Auto) % Neut % (Auto) % Lymph % (Auto) % [place] % (Auto) % Eos % (Auto) % Baso % (Auto) % Neut # (Auto) (1.40-6.50) K/uL Lymph # (Auto) (1.20-3.40) K/uL [place] # (Auto) (0.11-0.59) K/uL Eos # (Auto) (0.00-0.50) K/uL Baso # (Auto) (0.00-0.20) K/uL Immature Gran # (Auto) (0.01-0.20) K/uL Toxic Vacuolation Polychromasia PT (9.0-12.0) Seconds INR (0.9-1.1) APTT (21-31) Seconds PTT Ratio Heparin Anti-Xa, Unfract (0.3-0.7) IU/ml Specimen Type Sample Site POC pH (7.35-7.45) POC pCO2 (35-46) mmHg POC pO2 (80-95) mmHg POC HCO3 (19-24) mmol/L POC Total CO2 (24-31) mmol/L POC Base Excess (-9-1.8) mmol/L O2 Sat Pulse Oximetry ABG pH (Temp Correct) (7.35-7.45) ABG pCO2 (Temp Corrct (35-46) mmHg POC ABG pO2 at Pt Temp POC ABG O2 Sat (90-95) % Vazquez Test VBG pH (7.36-7.41) VBG pCO2 (38-50) mmHg VBG pO2 mmHg VBG HCO3 mmol/L VBG O2 Saturation % VBG Base Excess mEq/L O2 Delivery Device POC Sodium (135-144) mmol/L Sodium (136-145) mmol/L POC Potassium (3.3-5.0) mmol/L Potassium (3.5-5.1) mmol/L Chloride (98-107) mmol/L Carbon Dioxide (21-32) mmol/L Anion Gap (3-11) BUN (6-23) mg/dl Creatinine (0.6-1.2) mg/dl Est Cr Clr Drug Dosing ml/min eGFR BUN/Creatinine Ratio (10-20) Glucose (70-99(Fasting)) mg/dl POC Glucose (70-99) mg/dl Lactate (0.4-2.0) mmol/L Calcium (8.6-10.3) mg/dl Phosphorus (2.5-4.9) mg/dl Magnesium (1.7-2.4) mg/dl Total Bilirubin (0.2-1.0) mg/dl Direct Bilirubin (0-0.2) mg/dl AST (13-39) U/L ALT (7-52) U/L Alkaline Phosphatase (34-104) U/L Troponin I High Sens (0-14) pg/ml Total Protein (6.0-8.3) gm/dl Albumin (3.4-5.0) gm/dl Globulin (2.5-4.0) gm/dl Albumin/Globulin Ratio (0.9-2) Triglycerides (0-150) mg/dl TSH (0.300-4.500) uIu/ml Urine Color Urine Appearance (Clear) Urine pH (4.5-7.5) Ur Specific Philip (1.000-1.030) Urine Protein (Negative) Urine Glucose (UA) (Negative) Urine Ketones (Negative) Urine Blood (Negative) Urine Nitrite (Negative) Urine Bilirubin (Negative) Urine Urobilinogen (Negative) Ur Leukocyte Esterase (Negative) Urine WBC (Auto) (0-5) /hpf Urine RBC (Auto) (0-2) /hpf U Hyaline Cast (Auto) (0-2) /lpf U Epithel Cells (Auto) (0-2) /hpf Urine Bacteria (Auto) (None Seen) Urine Comment Pleural Cholesterol 40 mg/dL Gastric Fluid pH Gastric Occult Blood (Negative) Random Vancomycin (10-20) mcg/ml Misc Genetic Test Pending Blood Type A Positive Antibody Screen NEGATIVE Crossmatch See Detail Diagnostic Findings Abdomen Fluoroscopy 02/28/25 00:00 FL KUB CLINICAL HISTORY: LEFT STENT PLACEMENT COMPARISON STUDY: None FLUOROSCOPY TIME: 5 seconds FLUOROSCOPY IMAGES: 4 EXPOSURE DOSE: 1 mGy FINDINGS: Fluoroscopy was provided for urologic procedure. IMPRESSION: Intraoperative fluoroscopy. ACT 112: Negative or not required by law. Electronically signed by: Ricardo Green M.D. 03/01/2025 8:[address] 03/05/25 13:23 CT chest diagnostic wo con CT DOSE: 443.65 mGy.cm CLINICAL HISTORY: Pna under Rx, now w/ increasing O2 need. TECHNIQUE: Multiaxial CT images of the chest were performed without contrast. A dose lowering technique was utilized adhering to the principles of ALARA. COMPARISON STUDY: 02/02/2025 FINDINGS: There are bilateral pleural effusions, moderate on the right small on the left, increased. There is increased bandlike and patchy consolidation in the lower lung lobes, right greater than left. There is increased scattered patchy groundglass opacity in the upper lobes, left greater than right. No pneumothorax seen. No enlarged adenopathy. The esophagus is fluid-filled and mildly dilated. Represent reflux or reduced esophageal motility. No pericardial effusion. Masses at the upper liver are grossly stable. No acute osseous finding seen. IMPRESSION: Increased pneumonia and increased pleural effusions. ACT 112: Negative or not required by law. Electronically signed by: Ricardo Green M.D. 03/05/2025 3:09 PM KUB X-Ray 03/07/25 14:16 EXAM: Radiograph of the Abdomen 1 View INDICATION: Pain TECHNIQUE: Frontal supine view of the abdomen/pelvis. COMPARISON: CT 03/02/2025 FINDINGS: Limitations: None. Lower thorax: Small right pleural effusion and bilateral basilar airspace consolidation noted. Gastrointestinal tract: Relatively little bowel gas noted. Organs: Visualized organ shadows appear grossly normal. Bones/joints: No fracture, erosion or dislocation. Soft tissues: No abnormality noted. No radiopaque foreign body noted. Tubes, lines and devices: Inferior vena cava filter and bilateral ureteral stents in good position and unchanged. IMPRESSION: 1. Nonspecific relatively gasless abdomen. Consider follow-up CT. 2. Right pleural effusion and bilateral basilar airspace consolidation noted. ACT 112: N/A Electronically signed by Eufemia Swann 03-07-2025 5:17 PM Thoracentesis/Paracentesis US 03/09/25 00:00 ULTRASOUND-GUIDED RIGHT THORACENTESIS CLINICAL HISTORY: Right pleural effusion PROCEDURE: Procedure and risks were explained. Informed consent was obtained. A final timeout was completed. The right posterior thorax was prepped and draped in sterile fashion. 1% lidocaine was utilized for skin anesthesia. Utilizing ultrasound guidance, a 5 Upper [place] safety centesis catheter was advanced into the right pleural effusion. Ultrasound images were obtained. A total of 500 mL of pleural fluid was removed and sent to the lab. The catheter was removed and Band-Aid applied. The patient tolerated the procedure well. A chest x-ray will be obtained and vital signs will be monitored postprocedure. IMPRESSION: Ultrasound-guided right thoracentesis as above. Performed, dictated, and signed by Zeferino Hayward PA-C; to be co-signed by Dr. Flip Jose. Electronically signed by: Flip Jose M.D. 03/09/2025 3:53 PM Abdomen/Pelvis CT 03/09/25 22:29 Exam(s): CT ABDOMEN + PELVIS Without Contrast EXAM: CT Abdomen and Pelvis Without Intravenous Contrast CLINICAL HISTORY: R flank pain, heparin. OTHER: Other Notes: R flank pain, heparin TECHNIQUE: Axial computed tomography images of the abdomen and pelvis without intravenous contrast. CTDI is 17.77 mGy and DLP is 892.4 mGy-cm. Automated exposure control was utilized for the study. A dose lowering technique was utilized adhering to the principles of ALARA. COMPARISON: CT abdomen and pelvis with contrast dated 03/02/2025 FINDINGS: Lung bases: No significant abnormality. No mass. No consolidation. Pleural space: The bilateral pleural effusions have decreased in size but remain. Mediastinum: Prominent fluid distention of the distal thoracic esophagus. Postsurgical changes of the gastroesophageal junction. ABDOMEN: Liver: The multiple lesions throughout the liver are not well demonstrated on this noncontrast examination. Gallbladder and bile ducts: The gallbladder is mildly distended. There is a solitary noncalcified gallstone noted in the gallbladder with surrounding slight hyperdense material. No ductal dilation. Pancreas: No significant abnormality. No ductal dilation. Spleen: Similar perisplenic fluid. Adrenals: No significant abnormality. No mass. Kidneys and ureters: Bilateral double-J ureteral stents remain in position. However, there is new [id number] right hydronephrosis and proximal right ureterectasis. Stomach and bowel: Evaluation of the bowel is limited without contrast. Similar diffuse fluid-filled small bowel. A right sided ileostomy is noted. Subtotal colectomy remains. Incidental duodenal diverticulum noted, similar to the previous exam. Postsurgical changes also noted along the greater curvature of the stomach consistent with previous gastric reduction surgery. PELVIS: Appendix: Surgically absent. Bladder: The bladder is unremarkable and is stable in appearance, mild- to-moderately distended. No stones. Reproductive: Status post hysterectomy. Subperitoneal space: Similar to minimally increased presacral edema. ABDOMEN and PELVIS: Intraperitoneal space: No significant abnormality. No free air. No significant fluid collection. Bones/joints: No acute fracture. No dislocation. Soft tissues: See above. Mild fat stranding noted along the lateral aspect of the pelvis bilaterally. Vasculature: An IVC filter is noted in position. No abdominal aortic aneurysm. Lymph nodes: No significant abnormality. No enlarged lymph nodes. IMPRESSION: 1. Bilateral double-J ureteral stents remain in position. However, there is new [id number] right hydronephrosis and proximal right ureterectasis. This finding raises the suspicion for potential developing occlusion or insufficiency of the right ureteral stent. However, no significant perinephric abnormality noted bilaterally. 2. Similar perisplenic fluid. 3. Prominent fluid distention of the distal thoracic esophagus. Postsurgical changes of the gastroesophageal junction. The clinical significance of this finding is indeterminate. 4. Additional findings previously identified, as noted above. Electronically signed by: Zeferino Umaña MD 03/09/25 23:[address] 03/15/25 06:12 EXAM: CT head/brain wo con CLINICAL HISTORY: AMS TECHNIQUE: Axial non-contrast CT scan of the brain was performed from the skull base to the high parietal region with axial, sagittal, and coronal reconstructions. One of the following dose reduction techniques was utilized for this exam: automated exposure control, adjustment of the mA and/or kV according to patient size, and use of iterative reconstruction. DLP: 625.80 mGy.cm COMPARISON: None. FINDINGS: Brain Parenchyma: Normal attenuation of the cerebral hemispheres, cerebellum, and brainstem. No evidence of acute infarct, hemorrhage, or mass effect. No abnormal areas of hypo- or hyperattenuation. Ventricular System: Ventricles are normal in size and configuration. No evidence of hydrocephalus or ventricular enlargement. Subarachnoid Spaces: Normal sulci and cisterns. No evidence of subarachnoid hemorrhage or extra-axial fluid collections. Cerebellum and Brainstem: No masses, lesions, or areas of abnormal density. Orbits: Normal appearance of the globes, optic nerves, and extraocular muscles. No evidence of orbital masses or abnormal density. Sinuses: Clear paranasal sinuses. No evidence of sinusitis or mucosal thickening. Mastoid Air Cells: Clear mastoid air cells. No evidence of mastoiditis. Skull: Normal skull morphology. IMPRESSION: 1. Normal CT of the head without contrast. 2. MRI with diffusion may be indicated if there is a clinical possibility of hyperacute or acute infarction. Electronically signed by Jacques Sweeney 03-15-2025 08:12 AM Venous Doppler Study 03/16/25 01:43 EXAM: US venous doppler LE RT CLINICAL HISTORY: Edema, DVT TECHNIQUE: Ultrasound examination of right lower extremity veins was performed in real-time and duplex. One or more of the following were performed: spectral analysis, resistive index, waveform analysis, and pulsed Doppler. COMPARISON: 02/16/2024 FINDINGS: Edema is identified in the right lower extremity. All the veins appear dilated showing echogenic occlusive thrombus in all veins of the right lower extremity, involving right common femoral, great saphenous, deep and superficial femorals, popliteal, gastrocnemius, posterior tibial peroneal and anterior tibial veins. Limited evaluation of the right common iliac veins due to colostomy bag. Compression and Augmentation: Loss of compression. IMPRESSION: Acute DVT detected in right common femoral, superficial femoral, popliteal, gastrocnemius, posterior tibial, anterior tibial and peroneal veins at the time of examination (interval new). Disclaimer: DVT could be missed early in the disease when clot burden is minimal. For patients with moderate and high pretest probability of DVT and negative ultrasound, the [employer] clinical guidelines recommend testing with a D-dimer assay or repeat ultrasound in 5-7 days. If symptoms worsen, the Society of radiologists in ultrasound recommends repeating ultrasound even earlier. Electronically signed by Jacques Sweeney 03-16-2025 05:36 AM Chest X-Ray 03/16/25 14:01 XR chest 1V portable HISTORY: 44 years-old Female eval acute shortness of breath COMPARISON: 03/09/2025 TECHNIQUE: AP view of the FINDINGS: Cardiac silhouette is enlarged. Right IJ Nxopje-z-[id number] catheter in unchanged positioning. Lungs are hypoinflated. Linear right basilar consolidation. No pneumothorax. Trace right pleural effusion. Degenerative changes of the shoulders and spine. Partially imaged right ureteral stent. IVC filter. IMPRESSION: 1. Trace right pleural effusion with linear right basilar consolidation favoring atelectasis. 2. Hypoinflation. ACT 112: Negative or not required by law. The above report was generated using voice recognition software. It may contain grammatical, syntax or spelling errors. Electronically signed by: Jonn Li M.D. 03/16/2025 2:49 PM PG Care Time/CCT Total # of Minutes Spent Total Time Spent with Patient: Total time spent is greater than 50% in coordination of care (as documented) at patient's floor/unit and/or counseling patient: I spent 140 minutes overall addressing this case: 15 min in medical data review/discussion with referring provider(s) and/or preparation for the visit 20 min in direct interaction with the patient/exam 65 min in Advance Care Planning/Goals of Care discussions as detailed above in note (must be >16min) 15 min in subsequent review and synthesis of assessment and plan 25 min communicating with other providers regarding the patient's case: gracie tea, nephrology, nursing, care mgt Advanced Care Planning [id number] Advanced Care Planning 30 Min 11942 Advanced Care Planning Additional 30 [place] [address] SUB INP/OBS CARE 3/50MIN (25 - SIGNIFICANT, SEPARATELY IDENTIFIABLE ) Patient Type Established Medical Decision Making High Complexity Diagnoses 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
--- NOTE | 2025-03-17 10:38 | Nephrology Consultation ---
Date of Consultation March 17, 2025 Assessment & Plan (1) SANDRA (acute kidney injury): Stage 3 SANDRA w/ oligoanuria and creatinine 2.4 today, up from baseline 0.6-0.7. Likely hemodynamically mediated, given that abrupt change in function correlates w/ lower BP yesterday; note that troponins bumped mildly/presume demand ischemia there as well UA from yesterday concerning for UTI; WBC also climbing; lactate wnl; concern for infection > started meropenem yesterday Her sbp baseline is 120s usually and did have several hours of sbp in 90s yesterday though this was intermittent No recent IV contrast She had concern for recurrent R hydronephrosis on 03/09 CT scan though ureteral stents were patent >> recommended repeat imaging of abdomen non con which shows no worsening hydronephrosis and ongoing low grade bowel obstruction >> f/u pending urine/blood cultures >maintain MAP > 65 >> pRBC planned for today; use pressors if necessary; PPN volume increased for later today 1L > 1.5L -continue strict I/O -if this comes to a discussion of dialysis (not there yet) she will be a high risk candidate d/t already active VTE combined with active bleeding from gastritis History of Present Illness Reason for Consultation: Worsening SANDRA Requesting Physician: Dr. Bullock Attending Physician: Charles Carlisle MD History of Present Illness 44-year-old female whom I am asked to evaluate for worsening acute kidney injury was admitted here February 27 for management of nausea vomiting and abdominal pain and what proved to be partial small bowel obstruction in the setting of metastatic colon adenocarcinoma; she was moved to the ICU yesterday afternoon for management of hypotension. Her presenting creatinine was 0.8. Remained in this range until March 14 when creatinine increased to 1.2 then progressively increased to so far this admission at 2.4. Baseline creatinine 0.6-0.7. Intake and output are incomplete. However in the past 24 hours she has had approximately 6.2 L and with about 100 mL urine output documented and 150 mL emesis with no urine output reported overnight. Ongoing issues with iron deficiency anemia hemoglobin in the past 2 days hovering at about 7. Last transfusion March 11 @ 1 unit pRBC but another is planned today. She has a DVT RLE currently but is off of anticoagulation b/c of bleeding. Past medical history includes colon adenocarcinoma metastatic to liver and peritoneum, perforated diverticulitis/adenocarcinoma status post partial colectomy and colostomy (October 2024 at [facility]) and complicated by hepatic/subphrenic abscess (treated), pulmonary embolism on Eliquis, C. difficile s/p treatment, h/o wt reduction surgery/ gastric sleeve, anxiety and depression, iron deficiency anemia presents. She was admitted February 06 to with small bowel obstruction managed conservatively. On February 28 she underwent cystoscopy with left ureteral stent placement urine culture growing Salma albicans due to progression of left hydronephrosis from earlier this fall; she had previously undergone right ureteral stenting in late January; hydronephrosis attributed to extrinsic compression. On March 08, infectious diseases evaluated the patient with concern for bibasilar MRSA pneumonia and acute right pyelonephritis: antibiotics were narrowed to vancomycin through 03/13; antifungal therapy, doxycycline, cefepime were all stopped. She had a thoracentesis on 03/09 w/ cytology showing metastatic adenoCA. Palliative care has been following and discussing goals of care, resuscitation status/preferences. She underwent EGD March 02 showing normal duodenum, healthy mucosa at site of sleeve gastrectomy, grade D reflux esophagitis with bleeding biopsy sites, large amount of retained fluid in the stomach and esophagus suspicious for partial obstruction motility issues. Not a surgical candidate currently. Her pain and nausea medications have been adjusted multiple times through course of her stay including yesterday when her morphine was changed back to dilaudid and her fentanyl patch dose was lowered. She is currently on a trial of PPN one L daily. She had a liter of D5 1/2 NS yesterday and a 1/2 L of LR along w/ dose of albumin yesterday/today. Her generalized weakness and lethargy remain too symptomatic for discharge. ROS is limited by pt's decreased mental status > no recent F/c; c/o BLUQ abdominal pain and some N, + constipation. no dyspnea, no chest pain or palpitations. + constipation. and poor po. Allergies Allergy/AdvReac Type Severity Reaction Status Date / Time oxaliplatin Allergy Intermediate "HOT & Verified 02/27/25 00:23 ITCHY" IMMEDIATELY vancomycin Allergy Intermediate "HOT & Verified 02/27/25 00:23 ITCHY" IMMEDIATELY Home Medications Medication Instructions Recorded Confirmed Type apixaban 5 mg tablet (Eliquis) 5 mg PO BID 02/02/25 02/27/25 History buspirone 10 mg tablet 10 mg PO BID 02/02/25 02/27/25 History escitalopram oxalate 20 mg tablet 20 mg PO DAILY 02/02/25 02/27/25 History famotidine 20 mg tablet 20 mg PO BID 02/02/25 02/27/25 History lorazepam 0.5 mg tablet 0.5 mg PO TID PRN Anxiety 02/02/25 02/27/25 History pregabalin 50 mg capsule 50 mg PO BID #30 caps 02/06/25 02/27/25 Rx hydromorphone 4 mg tablet 4 mg PO Q4H PRN severe cancer pain 02/18/25 02/27/25 Rx (Dilaudid) 1 month #180 tabs ondansetron 8 mg disintegrating 8 mg PO Q8H PRN Nausea 02/24/25 02/27/25 History tablet methocarbamol 500 mg tablet 1,000 mg PO QID PRN NEEDED PER 02/27/25 02/27/25 History PT Patient History Medical History Nausea & vomiting Small bowel obstruction Peritonitis Abdominal pain Acute diverticulitis History of Clostridium difficile infection diagnosed 02/09/24 while admitted in hospital - treated with Vancomycin until 02/27/24 Colostomy present done 02/04/24 stoma revised 02/06/24 with an additional 4.5cm of the colon removed History of diverticulitis history of multiple flares over the past year Hx of deep venous thrombosis (2010) - s/p childbirth in 2010- was on blood thinner for short time - no DVT noted with PE on 02/16/24 Hx of migraines History of panic attacks History of pulmonary embolism dx 02/16/24 at [facility]>started on Eliquis provoked by malignancy and surgical intervention per records dopplers negative for DVT Adenocarcinoma of colon dx'ed 01/2024 Perforated sigmoid colon - 02/03/24 due to enlarging mass (adenocarcinoma of the colon) - 02/04/24 underwent partial left colon resection and end colostomy Depression with anxiety Surgical History Hx of hysterectomy Port-A-Cath in place (03/13/24) Insertion of Access Port with Fluoroscopy into Right Internal Jugular Vein(Right) - Elizabeth Velasquez DO [place] teeth removed H/O abdominal surgery (02/05/24) Exploratory Laparoscopy Revision of Colostomy and Stoma(Not Applicable) - Elizabeth Velasquez DO History of x 2 H/O gastric sleeve (2021) History of colon resection (02/04/24) p Diagnostic Laparoscopy, with a laparoscopic colon resection, Abdominal Wash Out, Creation Colostomy(Not Applicable) - Elizabeth Velasquez DO Extensive lysis of adhesions Family History Other No family history of adverse response to anesthesia Social History Smoking Status: Never smoker Second Hand Exposure: No; Do You Dip or Chew Tobacco: No; Hx Alcohol Use: No Hx Substance Use: No Preferred Language: Mexican Communication Ability: Effective Visual Impairment: No Limitations 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 Required: No Beliefs That Will Affect Care: Faith Current Living Situation: Spouse Current Living Situation Comment: Home Feels Safe at Home: Yes Assistive Devices: None Review of Systems 2 Review of Systems: All systems reviewed & are unremarkable except as noted in HPI & below Physical Exam 2 Constitutional: well developed, well nourished, + altered mental status and + frail appearing; no acute distress Eyes: EOM intact bilaterally ENMT: Mouth: + dry oral mucous membranes Respiratory: normal respiratory effort; no labored breathing and no cough A uscultation: + diminished lung sounds Cardiovascular: Rate/Rhythm: + tachycardic Extremities: + edema (RLE and dependent) Gastrointestinal (Abdomen): Inspection/Auscultation: normal bowel sounds and + abdominal surgical drain present (ileostomy w/ dark liquid output) P ercussion/Palpation: abdomen soft; abdomen nontender Musculoskeletal: Extremities: strength 5/5 throughout Skin: no rashes, warm and dry Neurologic: psychomotor slowing, lu, limited speech Genitourinary: maloney w/ brown urine Results & Data Vital Signs (Past 12 Hours) Vital Signs Temp Pulse Resp BP Pulse Ox 03/17/25 07:47 110 H 03/17/25 05:00 104/59 L 03/17/25 05:00 104/59 L 03/17/25 05:00 104/59 L 03/17/25 05:00 104/59 L 03/17/25 05:00 100 H 20 91 03/17/25 04:51 105 H 22 98 03/17/25 04:42 101 H 20 97 03/17/25 04:31 119/66 03/17/25 04:31 119/66 03/17/25 04:31 119/66 03/17/25 04:31 119/66 03/17/25 04:31 119/66 03/17/25 04:30 102 H 22 91 03/17/25 04:21 104 H 17 93 03/17/25 04:18 36.5 C 03/17/25 04:12 94 H 17 100 03/17/25 04:03 103 H 19 98 03/17/25 04:00 103 H 15 03/17/25 03:45 98 H 17 96 03/17/25 03:30 107/68 03/17/25 03:30 107/68 03/17/25 03:30 107/68 03/17/25 03:30 107/68 03/17/25 03:30 107/68 03/17/25 03:30 99 H 14 95 03/17/25 03:15 100 H 20 94 03/17/25 03:00 98 H 18 92 03/17/25 03:00 88/69 L 03/17/25 03:00 88/69 L 03/17/25 03:00 88/69 L 03/17/25 03:00 88/69 L 03/17/25 03:00 88/69 L 03/17/25 02:45 100 H 24 97 03/17/25 02:30 103 H 19 97 03/17/25 02:30 97/54 L 03/17/25 02:30 97/54 L 03/17/25 02:30 97/54 L 03/17/25 02:30 97/54 L 03/17/25 02:30 97/54 L 03/17/25 02:15 98 03/17/25 02:00 112 H 15 90 03/17/25 02:00 102/78 03/17/25 02:00 102/78 03/17/25 02:00 102/78 03/17/25 02:00 102/78 03/17/25 01:45 99 H 21 94 03/17/25 01:30 113/79 03/17/25 01:30 113/79 03/17/25 01:30 113/79 03/17/25 01:30 113/79 03/17/25 01:30 113/79 03/17/25 01:30 108 H 16 97 03/17/25 01:15 110 H 20 95 03/17/25 01:07 36.5 C 03/17/25 01:00 98/68 L 03/17/25 01:00 98/68 L 03/17/25 01:00 98/68 L 03/17/25 01:00 98/68 L 03/17/25 01:00 98/68 L 03/17/25 01:00 98/68 L 03/17/25 01:00 98/68 L 03/17/25 01:00 98/68 L 03/17/25 01:00 98/68 L 03/17/25 01:00 102 H 19 91 03/17/25 00:45 104 H 10 L 91 03/17/25 00:30 106 H 14 95 03/17/25 00:30 95/69 L 03/17/25 00:30 95/69 L 03/17/25 00:30 95/69 L 03/17/25 00:30 95/69 L 03/17/25 00:30 95/69 L 03/17/25 00:15 103 H 12 98 03/17/25 00:01 97/73 L 03/17/25 00:01 97/73 L 03/17/25 00:01 97/73 L 03/17/25 00:01 97/73 L 03/17/25 00:01 97/73 L 03/17/25 00:00 109 H 03/17/25 00:00 107 H 20 96 03/16/25 23:45 107 H 12 96 03/16/25 23:30 101/70 03/16/25 23:30 101/70 03/16/25 23:30 108 H 18 97 03/16/25 23:30 101/70 03/16/25 23:30 101/70 03/16/25 23:30 101/70 03/16/25 23:15 108 H 17 97 03/16/25 23:00 99/71 L 03/16/25 23:00 99/71 L 03/16/25 23:00 99/71 L 03/16/25 23:00 99/71 L 03/16/25 23:00 99/71 L 03/16/25 23:00 110 H 20 95 03/16/25 22:45 110 H 20 93 03/16/25 22:30 103/68 03/16/25 22:30 103/68 03/16/25 22:30 103/68 03/16/25 22:30 103/68 03/16/25 22:30 103/68 03/16/25 22:30 113 H 22 94 Laboratory Results 03/17/25 02:07 03/17/25 02:[address] abdomen pelvis no contrast March 09 (images personally reviewed/agree w/ report) BL ureteral stents in place but R uretero/hydronephrosis re- emerging IMPRESSION: 1. Bilateral double-J ureteral stents remain in position. However, there is new [id number] right hydronephrosis and proximal right ureterectasis. This finding raises the suspicion for potential developing occlusion or insufficiency of the right ureteral stent. However, no significant perinephric abnormality noted bilaterally. 2. Similar perisplenic fluid. 3. Prominent fluid distention of the distal thoracic esophagus. Postsurgical changes of the gastroesophageal junction. The clinical significance of this finding is indeterminate.
--- NOTE | 2025-03-17 11:52 | Hospitalist Progress Note ---
Date of Service March 17, 2025 Assessment & Plan (1) Abdominal pain: Plan: 44-year-old female with past medical history significant for metastatic colon adenocarcinoma mets to liver and peritoneum, perforated diverticulitis/adenocarcinoma status post colostomy, pulm embolism on Eliquis, C. difficile s/p treatment, anxiety and depression, iron deficiency anemia presents with abdominal pain. Patient is having ongoing pain for several weeks now. This is her third admission since last 1 month. Patient is status post right ureteral stent on and supposed to follow-up outpatient for stent removal. She was on Bactrim and amoxicillin for postop hepatic abscess, says no longer on antibiotics. She was again admitted 06 of February for small bowel obstruction and was discharged on 02/08/2025. Patient is followed with palliative care. Currently on p.o. Dilaudid 4 mg every 3 hours as needed for pain. Patient says Dilaudid is causing her nauseous. States abdominal pain is not getting better. She is having a lot of nausea and vomiting. She says not eating because of nausea. She is being managed for the following: Sepsis Acute metabolic encephalopathy cannot rule out brain metastasis MRSA Multifocal pneumonia with bilateral malignant pleural effusion Possible complicated urinary tract infection/pyelonephritis Funguria --Chest CT:Increased pneumonia and increased pleural effusions. --Sputum culture MRSA --Initial blood cultures negative -Repeat blood cultures pending -- Urine culture pending --CT head:Normal CT of the head without contrast. --S/P thoracentesis: Consistent with metastatic adenocarcinoma Empirically on IV meropenem, vancomycin Appreciate greenhouse manager, infectious disease help May need MRI as able to rule out brain mets once more stable Palliative care on board Continue IV fluids as needed Also receiving PPN If no improvement in 72 hours, need to readdress goals of care Clinically deteriorating, very poor prognosis Metastatic colon cancer Malignant pleural effusion Malignant adenocarcinoma of right pleural space Ongoing persistent nausea, vomiting, generalized pain --Per prior attending: Patient's surgical oncologist Dr. Johnson reached out on March 01, 2025. I provided update on patient's current condition. He reports that unfortunately patient does have recurrence of colon cancer given elevated tumor markers. The initial plan was reversal of the colostomy- which will be kept on hold for the time being as it will delay patient to obtain chemotherapy. He also asked me to discuss with patient if she wants to follow- up with local oncology for chemotherapy. I updated the patient about my discussion with her surgical oncologist on March 02, 2025; she verbalized understanding. She wants to follow-up at [facility] oncology. She reports that PET/CT is still not done yet; would like to follow-up with them to have it done. --Very poor prognosis Palliative care discussed with oncologist--if condition improves, needs follow- up with oncology for palliative chemotherapy Palliative care on board Pain medications adjusted Acute kidney injury Multifactorial: Prerenal, ATN, obstructive Avoid nephrotoxic agents as able Continue IV fluids Appreciate nephrology input CT abdomen pending Right leg acute DVT H/O IVC filter Previously on Eliquis --Venous Doppler:Acute DVT detected in right common femoral, superficial femoral, popliteal, gastrocnemius, posterior tibial, anterior tibial and peroneal veins at the time of examination (interval new). Currently Eliquis on hold due to ongoing GI bleed, hematuria Partial small bowel obstruction Metastatic colon cancer --CT ABD:Multiple loops of small bowel are moderately distended with fluid and gas with a suggested transition point in the left lower quadrant of the abdomen where there are extensive postoperative adhesions. Small bowel obstruction is suspected. Please clinically correlate. Extensive postsurgical changes are redemonstrated as above. Multiple ill-defined hepatic lesions and masses are again seen, compatible with metastatic disease --Evaluated by general surgery. Recommended no surgical intervention, if indicated recommends transfer to [place] for surgical oncology evaluation at [facility]. Patient currently has been having small bowel movements Upper GI bleeding Esophagitis Gastritis Acute blood loss anemia/ Acute on chronic anemia --S/P EGD:Normal examined duodenum. A sleeve gastrectomy was found, characterized by healthy appearing mucosa. Bilious gastric fluid. Fluid aspiration performed. Erythematous mucosa in the stomach. Biopsied. LA Grade D reflux esophagitis with bleeding. Biopsied. Bilious fluid in the esophagus. Fluid aspiration performed. Normal mid esophagus. Biopsied. In light of the large amount of retained fluid in the stomach and esophagus at least some degree of partial obstruction motility is suspected likely related to overall tumor burden. --Pathology: Reactive changes and chronic invasive gastritis, H. pylori negative. Severe acute esophagitis and ulceration of esophagus. --S/P PRBCs Monitor H&H and transfuse as needed Appreciate GI input Continue PPI drip, Carafate Hydroureteronephrosis --S/P cystoscopy and left ureteral stent placement Appreciate Urology Input Mild hematuria likely due to traumatic Catheter Troponin elevation Likely demand ischemia Small circumferential pericardial effusion ECHO: Mild concentric LVH, EF greater than 70%. Small circumferential pericardial effusion with most focal fluid collection adjacent to the right ventricular free wall. No indications of cardiac tamponade. No regional wall motion abnormalities. H/O PE: H/O IVC Eliquis on hold due to bleeding issues--ostomy site bleeding, minimal hematuria Anxiety and depression: Was on Lexapro, BuSpar and Ativan as needed GERD: On Protonix DVT Px: SCDs for now Disposition: To be determined CODE STATUS DNI DNR Admission and Anticipated Discharge Date Admission Date: February 27, 2025 Subjective Patient is seen and examined at bedside Poor historian Reports generalized body ache Noted minimal hematuria Maloney catheter Renal function worsening Denies any chest pain, dyspnea Reports nausea, vomiting and abdominal pain Review of Systems Review of Systems: Other Physical Exam Physical Exam: Physical Exam: Vitals signs as noted above General Appearance:Moderately built, no apparent distress, ill-appearing Head: normocephalic, Atraumatic Eyes: normal inspection, EOMI Neck: supple, Trachea midline Respiratory/Chest: Decreased breath sounds, CTA,+ Port, No accessory muscle use Cardiovascular: S1, S2, No murmur, Tachycardia Abdomen/GI:Soft, Non tender, +Ileostomy : maloney, hematuria Extremities/Musculoskeletal:normal inspection, RLE > LLE edematous Neurologic/Psych:AAOX3, grossly no focal neurological deficits Skin: normal color, warm Results & Data Results & Data Vital Signs (Past 12 Hours) Vital Signs Temp Pulse Resp BP Pulse Ox 03/17/25 07:47 110 H 03/17/25 05:00 104/59 L 03/17/25 05:00 104/59 L 03/17/25 05:00 104/59 L 03/17/25 05:00 104/59 L 03/17/25 05:00 100 H 20 91 03/17/25 04:51 105 H 22 98 03/17/25 04:42 101 H 20 97 03/17/25 04:31 119/66 03/17/25 04:31 119/66 03/17/25 04:31 119/66 03/17/25 04:31 119/66 03/17/25 04:31 119/66 03/17/25 04:30 102 H 22 91 03/17/25 04:21 104 H 17 93 03/17/25 04:18 36.5 C 03/17/25 04:12 94 H 17 100 03/17/25 04:03 103 H 19 98 03/17/25 04:00 103 H 15 03/17/25 03:45 98 H 17 96 03/17/25 03:30 107/68 03/17/25 03:30 107/68 03/17/25 03:30 107/68 03/17/25 03:30 107/68 03/17/25 03:30 107/68 03/17/25 03:30 99 H 14 95 03/17/25 03:15 100 H 20 94 03/17/25 03:00 98 H 18 92 03/17/25 03:00 88/69 L 03/17/25 03:00 88/69 L 03/17/25 03:00 88/69 L 03/17/25 03:00 88/69 L 03/17/25 03:00 88/69 L 03/17/25 02:45 100 H 24 97 03/17/25 02:30 103 H 19 97 03/17/25 02:30 97/54 L 03/17/25 02:30 97/54 L 03/17/25 02:30 97/54 L 03/17/25 02:30 97/54 L 03/17/25 02:30 97/54 L 03/17/25 02:15 98 03/17/25 02:00 112 H 15 90 03/17/25 02:00 102/03/17/25 02:00 102/78 03/17/25 02:00 102/78 03/17/25 02:00 102/78 03/17/25 01:45 99 H 21 94 03/17/25 01:30 113/79 03/17/25 01:30 113/79 03/17/25 01:30 113/79 03/17/25 01:30 113/79 03/17/25 01:30 113/79 03/17/25 01:30 108 H 16 97 03/17/25 01:15 110 H 20 95 03/17/25 01:07 36.5 C 03/17/25 01:00 98/68 L 03/17/25 01:00 98/68 L 03/17/25 01:00 98/68 L 03/17/25 01:00 98/68 L 03/17/25 01:00 98/68 L 03/17/25 01:00 98/68 L 03/17/25 01:00 98/68 L 03/17/25 01:00 98/68 L 03/17/25 01:00 98/68 L 03/17/25 01:00 102 H 19 91 03/17/25 00:45 104 H 10 L 91 03/17/25 00:30 106 H 14 95 03/17/25 00:30 95/69 L 03/17/25 00:30 95/69 L 03/17/25 00:30 95/69 L 03/17/25 00:30 95/69 L 03/17/25 00:30 95/69 L 03/17/25 00:15 103 H 12 98 03/17/25 00:01 97/73 L 03/17/25 00:01 97/73 L 03/17/25 00:01 97/73 L 03/17/25 00:01 97/73 L 03/17/25 00:01 97/73 L 03/17/25 00:00 109 H 03/17/25 00:00 107 H 20 96 Laboratory Results Short CBC 03/16/25 03/16/25 03/17/25 Range/Units 13:20 17:25 02:07 WBC 10.79 12.82 H (4.8-10.8) K/ul Hgb 7.1 L 7.2 L 7.0 L (12.0-16.0) g/dL Hct 23.2 L 23.0 L 23.2 L (37.0-47.0) % Plt Count 138 160 (130-400) K/uL BMP 03/16/25 03/16/25 03/17/25 11:38 13:20 02:00 Sodium 135 L 136 134 L Potassium 4.9 4.9 4.6 Chloride 98 100 99 Carbon Dioxide 27 27 26 BUN 42 H 39 H 46 H Creatinine 2.09 H D 1.93 H 2.35 H D Glucose 157 H 122 H 136 H Calcium 8.7 8.1 L 8.3 L Liver Function 12/09/25 Range/Units 13:20 Total Bilirubin 0.4 (0.2-1.0) mg/dl AST 34 (13-39) U/L ALT 11 (7-52) U/L Alkaline Phosphatase 222 H (34-104) U/L Albumin 2.5 L (3.4-5.0) gm/dl Urine 03/16/25 Range/Units Unknown Urine Color [place] Urine Appearance Turbid A (Clear) Urine pH 6.0 (4.5-7.5) Ur Specific [place] 1.026 (1.000-1.030) Urine Protein 3+ H (Negative) Urine Glucose (UA) Trace H (Negative) (1) Abdominal pain Abdominal location: generalized Qualified Code(s): R10.84 - Generalized abdominal pain
--- NOTE | 2025-03-17 12:36 | Pharmacy Report ---
Pharmacy PN Follow-up Note - Date of Service March 17, 2025 - Subjective Patient is currently on day #2 of PPN for malnutrition/metastatic disease - Objective Height & Weight (Last Documented) Height 5 ft 3 in Weight 74.4 kg Diet Order(s) 03/16/25 02:38 NPO Intake & Ouput (24hrs) 03/16/25 03/17/25 03/18/25 06:59 06:59 06:59 Intake Total 1962 4181.667 / 4181.667 100 / 100 Output Total 245 / 245 Balance 1962 3936.667 / 3936.667 100 / 100 Selected Laboratory Results 03/16/25 03/17/25 13:20 02:00 Sodium 136 134 L Potassium 4.9 4.6 Chloride 100 99 Carbon Dioxide 27 26 Anion Gap 9 9 BUN 39 H 46 H Creatinine 1.93 H 2.35 H D BUN/Creatinine Ratio 20.2 H 19.6 Glucose 122 H 136 H Calcium 8.1 L 8.3 L Phosphorus 4.2 Magnesium 2.5 H Total Bilirubin 0.4 AST 34 ALT 11 Alkaline Phosphatase 222 H - Assessment & Plan Assessment: F: D51/2 NS @ 80 ml/hr stopped this morning (this was providing ~ 96 gm of dextrose/day) and adjusted to plasma-lyte @ 100 ml/hr. ; ppn @ 43.6 ml/hr (will increase today)- discussed volume with nephrology E: WNL except mild hyponatremia, mag mildly elevated but downtrending, No additional electrolytes added to formula today given increase in SCR and overall decrease in dextrose- monitor for repletion outside of ppn N: Increase ppn to volume goal today. Plan: * For Day #2 of PPN administration, the following will be ordered: * Macronutrients: * Amino Acids: 64 grams/day * Dextrose: 75 grams/day * Lipids: -- * Micronutrients: * Sodium chloride: 70 mEq/day * Sodium acetate: 50 mEq/day * Multivitamins: 10 mL/day * Trace elements: 1 mL/day * Thiamine: 100 mg/day * Folic Acid: 1 mg/day * Total volume of 1564 mL will be infused over 24 hours and will provide 510 kcal/day * Patient is on PPN which has a maximum mOsm/L of 900. Final osmolarity of current solution is 802.24 mOsm/L. * Labs will be ordered per PN protocol. * Pharmacy will follow and adjust PN orders on a daily basis. Thank you!
--- NOTE | 2025-03-17 12:49 | Pharmacy Report ---
Pharmacy PK ABX Note - Date of Service March 17, 2025 - Assessment and Plan Assessment 03/17: * Day #12 vancomycin * SCr 2.35 today, nephrology consulted. Random level elevated this morning 33.9 mcg/mL. Last dose 12 PM. * No further doses at this time, expect patient to be therapeutic through 03/19 (14 days of therapy). recheck level on 03/19 if continuing. 03/16: * Day #11 vancomycin * Renal function is continuing to decline today (SCr 1.64mg/dL). Due to this and the elevated vancomycin level seen yesterday, further dosing of vancomycin will be based on levels. The next level has been scheduled for tomorrow with morning labs. 03/15: * Day #10 vancomycin * Vancomycin level drawn this morning was 33.1mcg/mL which extrapolates to AUC significantly above goal. The maintenance dose of vancomycin was decreased * Per hospitalist note, community health advisor recommends longer duration of antibiotics (14 days). * SCr trending up (1.17mg/dL today), leukocytosis has resolved, and afebrile. * ertapenem discontinued 03/14 as urine culture grew Salma. 03/10: * Random vancomycin level this AM was ~18 mcg/ml - current dosing anticipated to achieve goal AUC/ASH therefore will continue current vancomycin regimen. ID recommending 7 days total for MRSA pneumonia. Today is day 5/7 for therapy. Patient s/p thoracentesis 03/09 - cultures pending. Patient with gross hematuria/flank pain - provider starting ertapenem d/t hx ESBL uti's and also ordered a urine culture. 03/08: * Sputum culture finalized as MRSA * SCr increasing (0.53 mg/dL -> 0.7 mg/dL -> 0.93 mg/dL) * Antibiotics to be de-escalated today per hospitalist. Discussed possible switch to linezolid (given tolerability concerns with vancomycin), but holding off on this for now until provider can discuss with patient (due to concomitant escitalopram and buspirone). * Pre-medicating with diphenhydramine 25 mg IV * Awaiting ID consult 03/07 * Sputum culture growing S. aureus, sensitivities pending * WBC downtrending, afebrile, tolerating vancomycin at slower rate * Infectious disease consulted * Random level today 15.5 mcg/mL correlates with achievement of target AUC/ASH 03/06 * 44 year old F receiving vancomycin/cefepime/doxycycline for treatment of multifocal pneumonia (increasing O2 requirements today) and IV fluconazole for urinary tract infection. Pertinent microbiologic data includes: Positive MRSA Nasal Swab, urine culture 02/27/25 growing salma albicans. 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 Will double length of infusion and pre- treat with diphenhydramine (ordered by pulm). Possibly could increase vancomycin dilution if needed. Patient is not a great linezolid candidate due to multiple serotonergic medications and daptomycin is not recommended for pneumonia treatment. Would recommend ID consult if not tolerating vancomycin for other treatment options. Plan Vancomycin * Dose per level * Next level to be scheduled for 03/19 with morning labs or sooner with significant renal improvement Pharmacy will continue to follow and will adjust dose/frequency as necessary. Thank you. Pharmacy has transitioned to AUC monitoring for vancomycin. AUC/ASH is the preferred PK/PD target and is associated with decreased risk of nephrotoxicity compared to traditional trough targets.
--- NOTE | 2025-03-17 13:14 | CT Scan Report ---
CT SCAN OF THE ABDOMEN AND PELVIS WITHOUT IV CONTRAST CLINICAL HISTORY: Colon cancer. Worsening renal function. COMPARISON STUDY: Prior abdominal CT scans, most recently dated 03/09/2025. Right lower extremity ana ous ultrasound dated 03/16/2025. TECHNIQUE: CT scan of the abdomen and pelvis is performed from the lung bases to the proximal femora. Images are reviewed in the axial, sagittal, and coronal planes. IV contrast was not administered for this examination due to poor renal function. Note that the examination is significantly suboptimal w ithout oral and IV contrast. A dose lowering technique was utilized adhering to the principles of ALA RA. The examination is degraded by motion artifact, as well as by streak artifact from the arms which could not be elevated above the abdomen. CT DOSE: 1427.91 mGy.cm FINDINGS: Lung bases: Due to the central venous infusion port terminates at the cavoatrial junction. The heart is normal in size noting a small pericardial effusion. There is significant attenuation of the cardia c blood pool is compared to the myocardium suggesting anemia. There is a small right pleural effusion . Dependent atelectasis is seen at the lung bases. The visualized esophagus is distended and filled w ith fluid. Liver: The unenhanced liver is normal in size size. The liver is heterogeneous and infiltrative by di ffuse/multifocal hepatic metastatic disease. This is likely unchanged from recent prior studies. A re presentative right lobe lesion on image #77 measures approximately 5 cm. There is no intrahepatic armen iary ductal dilatation. Gallbladder: The gallbladder is contracted. Hyperdense material within the gallbladder lumen may repr esent vicarious excreted contrast. Spleen: Normal in size and attenuation. Pancreas: The unenhanced pancreas is grossly unremarkable. Adrenal glands: Unremarkable. Kidneys: The unenhanced kidneys are normal in size. Bilateral ureteral stents are in appropriate posi tion. There is qtld-je-yyaqfgiu right-sided hydronephrosis. No hydronephrosis is seen on the left. No calcifications are identified in either ureter or along the course of the stents. No calculi are see n in either kidney. There is no evidence of contour deforming renal mass lesion. Abdominal vasculature: The abdominal aorta is normal in course and caliber. An IVC filter is in place . The IVC and iliac vessels are moderately expanded and are hyperdense. This likely represents extens huan DVT when compared to yesterday's venous ultrasound. Bowel: There is postsurgical change from rectosigmoid resection with colocolonic anastomosis as well as subtotal colon resection. A double barrel ostomy is seen in the right lower quadrant. Postoperativ e changes also seen in the stomach which contains residual enteric contrast. The proximal small bowel loops are distended and fluid-filled, measuring up to 4.6 cm diameter. The distal small bowel above the ostomy appears relatively decompressed. No discrete transition point is seen and this is similar appearance to prior studies. Peritoneum: There is a small volume of perihepatic and perisplenic ascites. No intraperitoneal free a ir is seen. Lymphadenopathy: None. Pelvic viscera: The bladder is decompressed around a Ram catheter and appears thick walled. The lorenzo dder contains the distal ends of bilateral ureteral stents. The uterus is surgically absent. No adnex al lesion is seen. Presacral soft tissue thickening likely represents treatment related change. Skeletal structures: There is mild lumbosacral spondylosis and scoliosis. Degenerative sclerosis is s een in the sacroiliac joints and pubic symphysis. No lytic or blastic lesions are seen. Soft tissues: There is anasarca of the body wall with superficial and deep soft tissue edema seen wit hin the imaged lower extremities. A 1.6 cm nodular soft tissue structure in the ventral right pelvic wall on image #241 is similar to previous, as is a 2.4 cm similar appearing soft tissue nodule in the left lower quadrant abdominal wall seen on image #200. Metastatic deposits are not Excluded. IMPRESSION: 1. Bilateral ureteral stents are in appropriate position. Wwaw-kq-qqptrqlo right-sided hydronephrosis is similar to 03/09/2025. There is no hydronephrosis on the left. 2. The IVC and iliac veins appear mildly expanded and diffusely hyperdense. This likely corresponds t o extensive DVT when compared to yesterday's lower extremity ultrasound. 3. Again seen is multifocal hepatic metastatic disease. 4. There is postsurgical change from colon resections and right lower quadrant double barrel ostomy. The proximal small bowel loops are distended and fluid-filled, and the distal bowel above the osteoto my is relatively decompressed. This is of indeterminate significance and similar in appearance to jace or studies. A low grade/partial obstruction is not excluded and clinical correlation will be essentia l. 5. Small volume abdominal ascites and small right pleural effusion. 6. There is anasarca of the body wall the superficial and deep soft tissue edema within the partially imaged lower extremities. 7. The bladder is decompressed around Ram catheter and appears thick-walled. Correlate with urinaly sis. 8. The imaged esophagus is markedly distended and fluid-filled. Note this may place the patient at [facility] for aspiration. 9. Soft tissue nodules within the lower abdominal wall bilaterally are nonspecific. Metastatic deposi ts are not excluded. 10. Additional findings as above. ACT 112: Negative or not required by law. Electronically signed by: Brandon Schrader M.D. 03/17/2025 1:11 PM
[2025-03-17] MEDS: LORazepam Inj 0.5 MG in SYRINGE 0.25 ML IV PRN (14:17)
[2025-03-17] MEDS: HYDROmorphone INJ 0.5 MG/0.5 ML SYR IV PRN (20:06)
[2025-03-18 04:28] LABS: Hematocrit (blood only) 25.5 % (37.0-47.0); Hemoglobin 8.0 g/dL (12.0-16.0); Mean Corpuscular Hemoglobin 25.8 pg (25.0-34.0); Mean Corpuscular Volume 82.3 fL (80.0-100.0); Platelet Count 108 K/uL (130-400); RDW Standard Deviation 50.8 fL (36.4-46.3); Red Blood Count 3.10 M/uL (4.20-5.40); White Blood Count 16.94 K/ul (4.8-10.8)
[2025-03-18 04:41] LABS: Anion Gap 9.0 (3-11); Blood Urea Nitrogen 61.0 mg/dl (6-23); Calcium 7.9 mg/dl (8.6-10.3); Carbon Dioxide 23.0 mmol/L (21-32); Chloride 97.0 mmol/L (98-107); Creatinine Clr Calc Pharmacy 27.1 ml/min; Glucose 135.0 mg/dl (70-99(Fasting)); Magnesium 2.5 mg/dl (1.7-2.4); Potassium 4.5 mmol/L (3.5-5.1); Sodium 129.0 mmol/L (136-145)
--- NOTE | 2025-03-18 05:10 | Ultrasound Report ---
EXAM: US arterial duplex LE LT CLINICAL HISTORY: Weak LLE pulse TECHNIQUE: Ultrasound examination of the left lower extremities arteries was performed in real time and duplex. One or more of the following were performed- spectral analysis, resistive index, waveform analysis, and pulsed Doppler. COMPARISON: None. FINDINGS: Vessel Flow Pattern Left Peak Velocity Left (cm/sec) Common Femoral Artery (PUTTYING AND CALKING SUPERVISOR) Triphasic 98 Deep Femoral Artery (DPA) Triphasic 78 Superficial Femoral Artery (SFA) Triphasic prox:94 mid:97 Distal:84 Popliteal Artery (POP A) Triphasic prox:60 dist:76 Posterior Tibial Artery (SWEAT BOX ATTENDANT), proximal Triphasic 58 Posterior Tibial Artery (SWEAT BOX ATTENDANT), distal Triphasic 25 Anterior tibial artery. Triphasic Prox: 96 dist: 30 Peronial artery Triphasic Prox: 45 dist: 18 Dorsalis Pedis Artery (DPA) Triphasic 25 No mural plaques or hemodynamically significant stenosis is noted in the arteries of leftlower extremities. The peak systolic velocities are within normal limit bilaterally. decreased in distal calf vessels. No evidence of significant stenosis (50%) or hemodynamically significant lesions. Normal triphasic waveform pattern observed throughout the evaluated segments. Collateral Circulation: No significant collateral circulation noted indicative of chronic arterial occlusion. Additional Findings: There is DVT of left lower limb viens including the left common femoral, superficial femoral, popliteal and posterior tibial and peroneal veins. Lower limb edema noted. IMPRESSION: Duplex ultrasound of the left lower extremity arteries: 1. No evidence of significant stenosis or occlusion in the left lower limb arterial tree. 2. There is DVT of left lower limb viens including the left common femoral, superficial femoral, popliteal and posterior tibial and peroneal veins. Electronically signed by Jacques Sweeney 03-18-2025 05:08 AM
--- NOTE | 2025-03-18 09:43 | Gastroenterology Progress Note ---
Date of Service March 18, 2025 Assessment & Plan (1) UGIB (upper gastrointestinal bleed): (2) Nausea & vomiting: Plan Palliative has been meeting with patient and family. Recommend continuation of supportive care with PPI IV twice daily. Further recommendations to follow, see MD omer. Admission and Anticipated Discharge Date Admission Date: February 27, 2025 Supervising Physician Co-Signing Physician Notes I personally saw and examined the patient. I have reviewed the chart and agree with the documentation provided by the FIELD LABORER including discussion about the assessment, treatment and plan. Briefly, there is been no overall change in her status except for a slow deterioration. My clinical suspicion is she has part ial small bowel obstruction with bilious reflux leading to gastritis and esophagitis which causes intermittent GI bleeding. Continue to keep the head of bed over 30 degrees supportive care with PPI twice daily I had a long discussion with the hospice team and palliative care. I explained to them that to do something now would be rather invasive. It would entail an EGD with PEG placement for a venting gastrostomy. This would absolutely require her to be intubated and possibly get pressors because of how sick she is. In my opinion, this would not change the outcome of her disease. 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 S/P EGD in 03/02 with evidence of sleeve gastrectomy characterized by healthy appearing mucosa, Bilious gastric fluid, erythematous mucosa in the stomach, LA Grade D reflux esophagitis with bleeding. Discussed with nursing, not much has changed but mental status has declined. 03/18/25 hgb 8. Physical Exam Psychiatric: confused, lethargic Results & Data Results & Data Vital Signs (Past 12 Hours) Vital Signs Temp Pulse Resp BP Pulse Ox 03/18/25 04:39 97.9 F 03/18/25 04:00 106/66 03/18/25 04:00 106/03/18/25 04:00 106/03/18/25 04:00 106/66 03/18/25 04:00 106/03/18/25 03:59 102 H 19 95 03/18/25 00:30 103 H 19 93 03/18/25 00:30 89/66 L 03/18/25 00:30 89/66 L 03/18/25 00:30 89/66 L 03/18/25 00:30 89/66 L 03/18/25 00:30 89/66 L 03/18/25 00:15 111 H 17 95 03/18/25 00:15 93/65 L 03/18/25 00:15 93/65 L 03/18/25 00:15 93/65 L 03/18/25 00:15 93/65 L 03/18/25 00:15 93/65 L 03/18/25 00:02 102/69 03/18/25 00:02 102/69 03/18/25 00:02 102/69 03/18/25 00:02 102/69 03/18/25 00:02 102/69 03/18/25 00:00 104 H 03/18/25 00:00 97.7 F 03/18/25 00:00 109 H 21 91 03/17/25 23:45 106/64 03/17/25 23:45 106/64 03/17/25 23:45 106/64 03/17/25 23:45 106/64 03/17/25 23:45 106/64 03/17/25 23:45 103 H 18 92 03/17/25 23:30 108/65 03/17/25 23:30 108/65 03/17/25 23:30 108/65 03/17/25 23:30 108/65 03/17/25 23:30 108/65 03/17/25 23:30 103 H 20 92 03/17/25 23:15 109 H 13 92 03/17/25 23:15 97/70 L 03/17/25 23:15 97/70 L 03/17/25 23:15 97/70 L 03/17/25 23:15 97/70 L 03/17/25 23:15 97/70 L 03/17/25 23:00 104 H 20 93 03/17/25 23:00 94/64 L 03/17/25 23:00 94/64 L 03/17/25 23:00 94/64 L 03/17/25 23:00 94/64 L 03/17/25 23:00 94/64 L Coding Level of Care Code 79670 SUB INP/OBS CARE 05/02MIN Diagnoses UGIB (upper gastrointestinal bleed) K92.2 Nausea & vomiting R11.2
--- NOTE | 2025-03-18 10:43 | Electrocardiogram Report ---
Test Reason : Blood Pressure : */* mmHG Vent. Rate : 109 BPM Atrial Rate : 109 BPM P-R Int : 118 ms QRS Dur : 82 ms QT Int : 332 ms P-R-T Axes : 30 3 49 degrees QTcB Int : 447 ms Sinus tachycardia Otherwise normal ECG When compared with ECG of 10-Mar-2025 05:49, No significant change Confirmed by Lc Thibodeaux ([id number]) on 03/18/2025 10:42:47 AM Referred By: REFERRED SELF Confirmed By: Lc Thibodeaux
--- NOTE | 2025-03-18 12:02 | Nephrology Progress Note ---
Date of Service March 18, 2025 Assessment & Plan (1) SANDRA (acute kidney injury): Plan: Stage 3 SANDRA w/ oligoanuria and creatinine 2.59 today, up from baseline 0.6-0.7. Likely hemodynamically mediated, given that abrupt change in function correlates w/ lower BP yesterday; note that troponins bumped mildly/presume demand ischemia there as well UA concerning for UTI; WBC also climbing; lactate wnl; concern for infection > started meropenem yesterday Her sbp baseline is 120s usually and did have several hours of sbp in 90s yesterday though this was intermittent She had concern for recurrent R hydronephrosis on 03/09 CT scan though ureteral stents were patent >> recommended repeat imaging of abdomen non con which shows no worsening hydronephrosis and ongoing low grade bowel obstruction >> f/u pending urine/blood cultures >maintain MAP > 65 >> pRBC as needed for hemoglobin less than 7; use pressors if necessary; PPN volume increased for later today 1L > 1.5L -continue strict I/O - patient not likely to tolerate dialysis given hypotension and progressive cancer.\ - palliative evaluation recommended Admission and Anticipated Discharge Date Admission Date: February 27, 2025 Subjective seen for Acute kidney injury. Patient with metastatic colon cancer with colostomy. Patient remains weak. She is getting some TPN. He is oliguric. Creatinine up trending. She denies shortness of breath. She complains of pain in the abdomen Review of Systems 2 Review of Systems: All other systems were reviewed and negative except as noted in HPI Physical Exam 2 Physical Exam: General exam: lethargic, no acute distress HEENT: Pupils are equal and reactive to light Neck: No JVD, neck is supple trachea is midline Respiratory system: Clear breath sounds bilaterally. Gastrointestinal: Abdomen is soft, colostomy bag present CVS: Regular rate and rhythm. No murmurs, rubs or gallops Musculoskeletal: No joint or muscle tenderness Extremities: Non tender, 1+ edema, peripheral pulses are present Neuro: Oriented, no tremors, no focal neurological deficits Skin: No rashes Results & Data Vital Signs (Past 12 Hours) Vital Signs Temp Pulse Resp BP Pulse Ox O2 Del Method 03/18/25 11:01 107 H 03/18/25 08:00 112 H 16 105/61 91 Room Air 03/18/25 04:39 36.6 C 03/18/25 04:00 106/66 03/18/25 04:00 106/66 03/18/25 04:00 106/66 03/18/25 04:00 106/66 03/18/25 04:00 106/66 03/18/25 03:59 102 H 19 95 03/18/25 00:30 103 H 19 93 03/18/25 00:30 89/66 L 03/18/25 00:30 89/66 L 03/18/25 00:30 89/66 L 03/18/25 00:30 89/66 L 03/18/25 00:30 89/66 L 03/18/25 00:15 111 H 17 95 03/18/25 00:15 93/65 L 03/18/25 00:15 93/65 L 03/18/25 00:15 93/65 L 03/18/25 00:15 93/65 L 03/18/25 00:15 93/65 L 03/18/25 00:02 102/69 03/18/25 00:02 102/69 03/18/25 00:02 102/69 03/18/25 00:02 102/69 03/18/25 00:02 102/69 03/18/25 00:00 104 H 03/18/25 00:00 36.5 C 03/18/25 00:00 109 H 21 91 Laboratory Results 03/18/25 04:13 03/18/25 04:13 WBC 16.94 H RBC 3.10 L MCV 82.3 MCH 25.8 MCHC 31.4 L RDW Std Deviation 50.8 H RDW Coeff of Mita 17.1 H Plt Count 108 L MPV 11.1 Phosphorus 3.3
[2025-03-18] MEDS ORDERED: LORazepam Inj 0.5 MG in SYRINGE 0.25 ML IV PRN (15:19)
[2025-03-18] MEDS ORDERED: ONDANSETRON INJ 2 MG/ML 2 ML VIAL IV PRN (15:19)
--- NOTE | 2025-03-18 15:28 | Hospitalist Progress Note ---
Date of Service March 18, 2025 Assessment & Plan (1) Abdominal pain: Plan: 44-year-old female with past medical history significant for metastatic colon adenocarcinoma mets to liver and peritoneum, perforated diverticulitis/adenocarcinoma status post colostomy, pulm embolism on Eliquis, C. difficile s/p treatment, anxiety and depression, iron deficiency anemia presents with abdominal pain. Patient is having ongoing pain for several weeks now. This is her third admission since last 1 month. Patient is status post right ureteral stent on and supposed to follow-up outpatient for stent removal. She was on Bactrim and amoxicillin for postop hepatic abscess, says no longer on antibiotics. She was again admitted 06 of February for small bowel obstruction and was discharged on 02/08/2025. Patient is followed with palliative care. Currently on p.o. Dilaudid 4 mg every 3 hours as needed for pain. Patient says Dilaudid is causing her nauseous. States abdominal pain is not getting better. She is having a lot of nausea and vomiting. She says not eating because of nausea. She is being managed for the following: Sepsis Acute metabolic encephalopathy cannot rule out brain metastasis MRSA Multifocal pneumonia with bilateral malignant pleural effusion Possible complicated urinary tract infection/pyelonephritis Funguria --Chest CT:Increased pneumonia and increased pleural effusions. --Sputum culture MRSA --Initial blood cultures negative -Repeat blood cultures negative to date -- Urine culture negative --CT head:Normal CT of the head without contrast. --S/P thoracentesis: Consistent with metastatic adenocarcinoma Empirically on IV meropenem, vancomycin--will be discontinued Appreciate digital marketing manager, infectious disease help Received IV fluids as needed Also received PPN Clinically deteriorating, very poor prognosis Patient remains confused and cognitive status continues to decline Given no meaningful recovery despite aggressive management, discussed with patient's in detail. Palliative care on board. Patient's agrees with transitioning her to comfort care. Patient will be transitioned to comfort care only Metastatic colon cancer Malignant pleural effusion Malignant adenocarcinoma of right pleural space Ongoing persistent nausea, vomiting, generalized pain --Per prior attending: Patient's surgical oncologist Dr. Johnson reached out on March 01, 2025. I provided update on patient's current condition. He reports that unfortunately patient does have recurrence of colon cancer given elevated tumor markers. The initial plan was reversal of the colostomy- which will be kept on hold for the time being as it will delay patient to obtain chemotherapy. He also asked me to discuss with patient if she wants to follow- up with local oncology for chemotherapy. I updated the patient about my discussion with her surgical oncologist on March 02, 2025; she verbalized understanding. She wants to follow-up at [facility] oncology. She reports that PET/CT is still not done yet; would like to follow-up with them to have it done. --Very poor prognosis Palliative care discussed with oncologist--if condition improves, needs follow- up with oncology for palliative chemotherapy Palliative care on board Pain medications adjusted Acute kidney injury Multifactorial: Prerenal, ATN, obstructive --CT ABD:Bilateral ureteral stents are in appropriate position. Nocg-ts-dnbzzlaa right-sided hydronephrosis is similar to 03/09/2025. There is no hydronephrosis on the left. The IVC and iliac veins appear mildly expanded and diffusely hyperdense. This likely corresponds to extensive DVT when compared to yesterday's lower extremity ultrasound. Again seen is multifocal hepatic metastatic disease. There is postsurgical change from colon resections and right lower quadrant double barrel ostomy. The proximal small bowel loops are distended and fluid-filled, and the distal bowel above the osteotomy is relatively decompressed. This is of indeterminate significance and similar in appearance to prior studies. A low grade/partial obstruction is not excluded and clinical correlation will be essential. Small volume abdominal ascites and small right pleural effusion. There is anasarca of the body wall the superficial and deep soft tissue edema within the partially imaged lower extremities. The bladder is decompressed around Maloney catheter and appears thick-walled. Correlate with urinalysis. The imaged esophagus is markedly distended and fluid- filled. Note this may place the patient at risk for aspiration. Soft tissue nodules within the lower abdominal wall bilaterally are nonspecific. Metastatic deposits are not excluded. Avoid nephrotoxic agents as able Received IV fluids Appreciate nephrology input Patient less likely to tolerate dialysis given hypotension, progressive metastatic cancer Right leg acute DVT H/O IVC filter Previously on Eliquis --Venous Doppler:Acute DVT detected in right common femoral, superficial femoral, popliteal, gastrocnemius, posterior tibial, anterior tibial and peroneal veins at the time of examination (interval new). Currently Eliquis on hold due to ongoing GI bleed, hematuria Partial small bowel obstruction Metastatic colon cancer --CT ABD:Multiple loops of small bowel are moderately distended with fluid and gas with a suggested transition point in the left lower quadrant of the abdomen where there are extensive postoperative adhesions. Small bowel obstruction is suspected. Please clinically correlate. Extensive postsurgical changes are redemonstrated as above. Multiple ill-defined hepatic lesions and masses are again seen, compatible with metastatic disease --Evaluated by general surgery. Recommended no surgical intervention, if indicated recommends transfer to [place] for surgical oncology evaluation at [facility]. Patient currently has been having small bowel movements Upper GI bleeding Esophagitis Gastritis Acute blood loss anemia/ Acute on chronic anemia --S/P EGD:Normal examined duodenum. A sleeve gastrectomy was found, characterized by healthy appearing mucosa. Bilious gastric fluid. Fluid aspiration performed. Erythematous mucosa in the stomach. Biopsied. LA Grade D reflux esophagitis with bleeding. Biopsied. Bilious fluid in the esophagus. Fluid aspiration performed. Normal mid esophagus. Biopsied. In light of the large amount of retained fluid in the stomach and esophagus at least some degree of partial obstruction motility is suspected likely related to overall tumor burden. --Pathology: Reactive changes and chronic invasive gastritis, H. pylori negative. Severe acute esophagitis and ulceration of esophagus. --S/P PRBCs Monitor H&H and transfuse as needed Appreciate GI input Continue PPI drip, Carafate for comfort only Hydroureteronephrosis --S/P cystoscopy and left ureteral stent placement Appreciate Urology Input Mild hematuria likely due to traumatic Catheter Received blood transfusions Troponin elevation Likely demand ischemia Small circumferential pericardial effusion ECHO: Mild concentric LVH, EF greater than 70%. Small circumferential pericardial effusion with most focal fluid collection adjacent to the right ventricular free wall. No indications of cardiac tamponade. No regional wall motion abnormalities. H/O PE: H/O IVC Eliquis on hold due to bleeding issues--ostomy site bleeding, minimal hematuria Anxiety and depression: Was on Lexapro, BuSpar and Ativan as needed GERD: On Protonix DVT Px: SCDs for now CODE STATUS DNI DNR Transition to comfort measures only Admission and Anticipated Discharge Date Admission Date: February 27, 2025 Subjective Patient is seen and examined at bedside Poor historian due to mental status decline States having bilateral flank, leg pain Updated patient's at bedside and over the phone Also discussed with palliative care Renal function continues to deteriorate Review of Systems Review of Systems: Other Physical Exam Physical Exam: Physical Exam: Vitals signs as noted above General Appearance:Moderately built, no apparent distress, ill-appearing Head: normocephalic, Atraumatic Eyes: normal inspection, EOMI Neck: supple, Trachea midline Respiratory/Chest: Decreased breath sounds, CTA,+ Port, No accessory muscle use Cardiovascular: S1, S2, No murmur, Tachycardia Abdomen/GI:Soft, Non tender, +Ileostomy : maloney, hematuria Extremities/Musculoskeletal:normal inspection, RLE > LLE edematous Neurologic/Psych:AAOX1-2, grossly no focal neurological deficits, Confused Skin: normal color, warm Results & Data Results & Data Vital Signs (Past 12 Hours) Vital Signs Temp Pulse Resp BP Pulse Ox O2 Del Method 03/18/25 11:01 107 H 03/18/25 08:30 Room Air 03/18/25 08:00 112 H 16 105/61 91 Room Air 03/18/25 04:39 36.6 C 03/18/25 04:00 106/66 03/18/25 04:00 106/66 03/18/25 04:00 106/66 03/18/25 04:00 106/66 03/18/25 04:00 106/66 03/18/25 03:59 102 H 19 95 Laboratory Results Short CBC 03/18/25 Range/Units 04:13 WBC 16.94 H (4.8-10.8) K/ul Hgb 8.0 L (12.0-16.0) g/dL Hct 25.5 L (37.0-47.0) % Plt Count 108 L (130-400) K/uL BMP 03/18/25 04:13 Sodium 129 L Potassium 4.5 Chloride 97 L Carbon Dioxide 23 BUN 61 H Creatinine 2.59 H Glucose 135 H Calcium 7.9 L (1) Abdominal pain Abdominal location: generalized Qualified Code(s): R10.84 - Generalized abdominal pain
--- NOTE | 2025-03-18 15:31 | Palliative Family Discussion ---
Date of Service March 18, 2025 Patient Directed Conference Time of [id number] Participants: Sammie Hurst DNP Patient participation: no lacks capacity Patient Support System: Ronny/ Other Healthcare Provider Participation: None Meeting Location: telephonic, he had to leave with the children The patient's surrogate medical decision maker participated: yes A telephonic ACP meeting was held for DEANNA KING. This meeting was necessary for determining the appropriate course of treatment. Topics of Discussion Topics of Discussion: I have spoken with Ronny King/Deanna's . 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 Ok to transfer to private room when it becomes available, off monitors. I have written orders, stopped non comfort interventions. Please finish current bag of PPN per Ronny's request, then no more. Please call him for any acute changes. the children are not desiring to come back to hospital. Ronny will be in tomorrow as soon as he gets them off to school. He anticipates that Deanna's Mo m etc. are likely to come back in along with friends from the home and hinduism. We discussed she is not likely surviving this admission and her steady persistent decline, inability to take PO, worsening caner pain and dyspnea + renal failure should help qualify her for GIP hospice. he has no agency preference but I think [facility] may be a good choice for them since they have a child life service. Also - Delfina, can you help him get connected to [facility] for ongoing family support Opportunity given for participants to speak and ask questions. Ronny was assured of attention to patient comfort.Reassurance provided. Support was provided for informed, good-ned decisions. Emotions expressed by family were acknowledged and addressed. We reviewed that dying patients fear dyspnea and pain, therefore, symptom control is one cornerstone of pulmonary palliative care. Dyspnea is a prominent symptom of the patient with advanced respiratory disease of any cause: nearly all patients with COPD had dyspnea during the last 3 days of their lives. We also reviewed/discussed changes pt may move through in the dying process including but not limited to sleeping more, disorientation when awake, restlessness, diminished senses/inability to respond to stimulus although ability to be aware of them remains intact longer, and changes in body temperatures, skin changes/mottling/cyanosis, respiratory pattern changes, and oral secretions. Family verbalized understanding. The goal is to assure a peaceful . Although it is unlikely to happen, there is sometimes the potential for what we call the EOL Rally: When a person facing the end of life rallies, they seem to become "more stable" - may want to talk or even begin taking PO; this phenomenon is usually seen as a sudden burst of energy before . This period of perking up can be accompanied by such a notable change in mental clarity that is often referred to as terminal lucidity. This change in cognition and behavior goes against everything families learn about the physical signs that the end of life is near. It is important to note that evidence-based data is elusive, if nonexistent. Theories support that it may be a search for a final, strong connection. Also, as organs shut down, they can release a steroid like compound that briefly rouses the body - in the specific case of brain tumors, swelling occurs in the confined space of the skull. The edema shrinks as EOL care patients are weaned off food and drink, waking up the brain a bit. Families and caregivers may grasp at what seems to be a turnaround in a loved ones health, however, the EOL Rally is a hallmark pre- sign. It is not uncommon for patients to show improvement before : they may want to talk while others may become restless or act as if they need to start preparing for a trip. Some patients will become more relaxed yet remain tuned in to what is going on around them, others will show signs of physical stability when, seconds before, they seemed on the verge of letting go. A rally can last for a few moments or even days. Short or long, these temporary improvements can have a profound effect on loved ones who are keeping murillo. Oxygen at EOL: For patients at the end of life, oxygen delivered by a nasal cannula provides no additional symptomatic benefit for relief of refractory dyspnea in patients with life-limiting illness compared with room air: there's a point at which that the oxygen level gets so low that it's no longer compatible with life. By providing supplemental oxygen, the dying process will be unnecessarily prolonged. Please use less burdensome but more effective strategies such as comfort care meds, oscillating fan, massage, repositioning, etc. (Nathaly AP, Merrill CF, Ava PA, et al. Effect of palliative oxygen versus room air in relief of breathlessness in patients with refractory dyspnoea: a double-blind, randomised controlled trial. Lancet. 2 010;376(0448):855-798. doi:10.1016/J[address]002-1528(69)65540-4) TS 45min Thank you for allowing us to participate in the ongoing care of this patient. Please page with any additional concerns. Mikaela Hurst DNP Director, Palliative Medicine
[2025-03-18] MEDS ORDERED: LORazepam Inj 1 MG in SYRINGE 0.25 ML IV PRN (15:32)
[2025-03-18] MEDS: HYDROmorphone INJ 0.5 MG/0.5 ML SYR IV PRN (15:50)
[2025-03-18] MEDS ORDERED: CLINOLIPID 20% IV FAT EMULSION 250 ML IV SCH (16:00)
[2025-03-19] MEDS ORDERED: STOP CLINOLIPID SCH (04:00)
[2025-03-19] MEDS: LORazepam Inj 0.5 MG in SYRINGE 0.25 ML IV PRN (05:13)
[2025-03-19] MEDS ORDERED: Nursing to Pharmacy Communication SCH (06:15)
[2025-03-19] MEDS: HYDROmorphone INJ 0.5 MG/0.5 ML SYR IV PRN (11:50)
--- NOTE | 2025-03-19 11:52 | Palliative Care Progress Note ---
Date of Service March 19, 2025 Assessment & Plan (1) Cancer related pain: Plan: managed with prn dilaudid and TDF (2) Abdominal pain: (3) Advanced care planning/counseling discussion: Plan: I held a 45min face to face ACP with Deanna's family: , Ronny, dtr Rosanne, son Kirit, and youngest daughter along with family friend, Bj. We discussed clinical events to dates. Using simple non clinical language, the children and I discussed what has been going on with Mom, what complications were occurring and how these were causing her overall health to worsen. We discussed the cancer is worsening and that her cancer doctor was in agreement that it was getting worse and could not be treated, she has worsening kidney function and now other body systems are also starting to shut down. We discussed the RLE DVTs and reviewed the complexity of not being able to treat with blood thinners due to her bleeding issues. All questions were answered to their apparent satisfaction. Ronny shared that their middle daughter has "shut down emotionally and is now refusing to speak with any of us." Their youngest son does not want to come back to the hospital. Deanna's brother has also declined coming to visit, as he feels he cannot handle seeing her this way. We discussed options for helping to better support the children. I provided the family with a legacy art project, handprint frame, from Palliative Medicine resource library along with a memory book that they can work on together as a family that celebrates the memories/happy moments with their Mom and celebrates her life, and I am hopeful this will help their middle daughter emerge from her emotional isolation and engage more with family.. I encouraged them to lean on each other through this time and to be emotionally o pen with one and other, to not shy away from sharing their feelings. They have a strong ned and strong support from their yazidi community which is bringing them comfort as well. Technical Communicator Thoms joined us later in the meeting and then spent some additional time speaking with them - please see his separate note for details. (4) Palliative care by specialist: (5) Adenocarcinoma of colon metastatic to liver: Plan As above Handprint legacy art project and Memory Workbook provided to family from our Palliative Medicine resource library. Thank you for allowing us to participate in the ongoing care of this patient. Please page with any additional concerns. 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 A GIP eval is pending She has 1 dose of opioid overnight She remains confused, lethargic and not able to follow commands RLE edema increased oral intake poor, sips liquids but not much output in maloney: Vital Signs Temp 36.9 C 03/19/25 06:58 Pulse 102 H 03/19/25 06:58 Resp 15 03/19/25 06:58 BP 95/66 L 03/19/25 06:58 Pulse Ox 98 03/19/25 06:58 O2 Del Method Room Air 03/19/25 06:58 O2 Flow Rate 2 03/16/25 19:45 Intake & Output 03/18/25 03/19/25 03/19/25 18:59 06:59 18:59 Intake Total 2861.333 / 3061.333 200 / 3061.333 100 / 100 Output Total 325 / 325 Balance 2861.333 / 2736.333 -125 / 2736.333 100 / 100 Weight 77.5 kg Intake: IV 2861.333 / 3061.333 200 / 3061.333 100 / 100 Aa 4.25%/D5w 2L 1,564 ml In 1564 / 1564 Peripheral TPN bag 0 ml @ 65.17 mls/hr IV .Q24H [facility] Rx#: [id number] PANTOprazole 40 mg In Dextrose 297.333 / 497.333 200 / 497.333 100 / 100 5% Mini-B 100 ml @ 8 MG/HR 20 mls/hr IV Q5H [facility] Rx#:[id number] Plasma-Lyte A 1,000 ml @ 100 1000 / 1000 mls/hr IV .Q10H [facility] Rx#: [id number] Output: Urine Amount (Catheter) 225 / 225 Maloney/Indwelling 225 / 225 Gastric Drainage 100 / 100 Ileostomy/Colostomy 100 / 100 Review of Systems Review of Systems: Unobtainable due to cognitive status Physical Exam Constitutional: + ill appearing, + physical limitations, + frail appearing, + diaphoretic, + lethargic and + malnourished Eyes: PERRL and normal accommodation ENMT: Ears: no hearing impairment Mouth: + dry oral mucous membranes Neck: normal visual inspection and trachea midline; neck nontender Thyroid: no thyromegaly Respiratory: + respiratory distress (mild intermitten t) and symmetric chest movement Cardiovascular: Rate/Rhythm: + tachycardic Gastrointestinal (Abdomen): Percussion/Palpation: + abdomen tender and abdomen soft Musculoskeletal: gen weakness RLE edema has worsened, calf is larger and is now up to level of hip with +1 pitting sacrally There is tenderness to RLE juany at calf, with grimacing and wincing noted on exam RLE cool to touch, toes are blue/violaceous with +blanching, I could not appreciate a palpable pulse Skin: +pallor, waxy appearing BLE are becoming discolored - toes are turning blue/violaceous with blanching. They are cool to touch, right signif more than left. Neurologic: opens eyes to verbal but not answering questions unable to focus Results & Data Vital Signs (Past 12 Hours) Vital Signs Temp Pulse Resp BP Pulse Ox O2 Del Method 03/19/25 06:58 36.9 C 102 H 15 95/66 L 98 Room Air 03/19/25 00:25 Room Air PG Care Time/CCT Total # of Minutes Spent Total Time Spent with Patient: Total time spent is greater than 50% in coordination of care (as documented) at patient's floor/unit and/or counseling patient: I spent 110 minutes overall addressing this case: 15 min in medical data review/discussion with referring provider(s) and/or preparation for the visit 20 min in direct interaction with the patient/exam 45 min in Advance Care Planning/Goals of Care discussions as detailed above in note (must be >16min) 15 min in subsequent review and synthesis of assessment and plan 15 min communicating with other providers regarding the patient's case: Advanced Care Planning 51450 Advanced Care Planning 30 Min 26669 Advanced Care Planning Additional 30 Min [place] [address] SUB INP/OBS CARE 3/50MIN (25 - SIGNIFICANT, SEPARATELY IDENTIFIABLE ) Patient Type Established Medical Decision Making High Complexity Diagnoses Cancer related pain G89.3 Generalized abdominal pain R10.84 Abdominal location: generalized Advanced care planning/counseling discussion Z71.89 Palliative care by specialist Z51.5 Adenocarcinoma of colon metastatic to liver C18.9; C78.7 Additional Codes Advanced Care Planning - 08168 Advanced Care Planning 30 Min: 31258 Advanced Care Planning 30 Min ([id number]) Advanced Care Planning - 90498 Advanced Care Planning Additional 30 Min: 67230 Advanced Care Planning Additional 30 Min ([id number]) Comment [phone] (2) Abdominal pain Abdominal location: generalized Qualified Code(s): R10.84 - Generalized abdominal pain
--- NOTE | 2025-03-19 15:36 | Hospitalist Progress Note ---
Date of Service March 19, 2025 Assessment & Plan (1) Abdominal pain: Plan: 44-year-old female with past medical history significant for metastatic colon adenocarcinoma mets to liver and peritoneum, perforated diverticulitis/adenocarcinoma status post colostomy, pulm embolism on Eliquis, C. difficile s/p treatment, anxiety and depression, iron deficiency anemia presents with abdominal pain. Patient is having ongoing pain for several weeks now. This is her third admission since last 1 month. Patient is status post right ureteral stent on and supposed to follow-up outpatient for stent removal. She was on Bactrim and amoxicillin for postop hepatic abscess, says no longer on antibiotics. She was again admitted 06 of February for small bowel obstruction and was discharged on 02/08/2025. Patient is followed with palliative care. Currently on p.o. Dilaudid 4 mg every 3 hours as needed for pain. Patient says Dilaudid is causing her nauseous. States abdominal pain is not getting better. She is having a lot of nausea and vomiting. She says not eating because of nausea. She is being managed for the following: Sepsis Acute metabolic encephalopathy cannot rule out brain metastasis MRSA Multifocal pneumonia with bilateral malignant pleural effusion Possible complicated urinary tract infection/pyelonephritis Funguria Metastatic colon cancer Malignant pleural effusion Malignant adenocarcinoma of right pleural space Ongoing persistent nausea, vomiting, generalized pain Acute kidney injury Right leg acute DVT H/O IVC filter Partial small bowel obstruction Metastatic colon cancer Upper GI bleeding Esophagitis/Gastritis Acute blood loss anemia/ Acute on chronic anemia Hydroureteronephrosis --S/P cystoscopy and left ureteral stent placement Troponin elevation--Likely demand ischemia Small circumferential pericardial effusion H/O PE: H/O IVC Anxiety and depression: GERD Patient transition to comfort measures only given very poor prognosis and no improvement despite aggressive management Patient's understands and agrees with the plan Palliative care on board Continue comfort medications as needed CODE STATUS DNI DNR Comfort measures only Admission and Anticipated Discharge Date Admission Date: February 27, 2025 Subjective Patient is seen and examined at bedside No distress on exam Currently on comfort measures only Offers no complaints Review of Systems Review of Systems: Other Physical Exam Physical Exam: Physical Exam: Vitals signs as noted above General Appearance:Moderately built, no apparent distress, ill-appearing Head: normocephalic, Atraumatic Eyes: normal inspection, EOMI Neck: supple, Trachea midline Respiratory/Chest: Decreased breath sounds, CTA,+ Port, No accessory muscle use Cardiovascular: S1, S2, No murmur, Tachycardia Abdomen/GI:Soft, Non tender, +Ileostomy : maloney, hematuria Extremities/Musculoskeletal:normal inspection, RLE > LLE edematous Neurologic/Psych:AAOX1-2, grossly no focal neurological deficits, Confused Skin: normal color, warm Results & Data Results & Data Vital Signs (Past 12 Hours) Vital Signs Temp Pulse Resp BP Pulse Ox O2 Del Method 03/19/25 06:58 36.9 C 102 H 15 95/66 L 98 Room Air (1) Abdominal pain Abdominal location: generalized Qualified Code(s): R10.84 - Generalized abdo alan pain
[2025-03-20 00:18] VITALS: BP 130/85; PULSE 92
[2025-03-20] MEDS: MoRPHine SULFATE 10 MG/0.5 ML UDP PO PRN (07:59)
--- NOTE | 2025-03-20 15:14 | Hospitalist Progress Note ---
Date of Service March 20, 2025 Assessment & Plan (1) Abdominal pain: Plan: 44-year-old female with past medical history significant for metastatic colon adenocarcinoma mets to liver and peritoneum, perforated diverticulitis/adenocarcinoma status post colostomy, pulm embolism on Eliquis, C. difficile s/p treatment, anxiety and depression, iron deficiency anemia presents with abdominal pain. Patient is having ongoing pain for several weeks now. This is her third admission since last 1 month. Patient is status post right ureteral stent on and supposed to follow-up outpatient for stent removal. She was on Bactrim and amoxicillin for postop hepatic abscess, says no longer on antibiotics. She was again admitted 06 of February for small bowel obstruction and was discharged on 02/08/2025. Patient is followed with palliative care. Currently on p.o. Dilaudid 4 mg every 3 hours as needed for pain. Patient says Dilaudid is causing her nauseous. States abdominal pain is not getting better. She is having a lot of nausea and vomiting. She says not eating because of nausea. She is being managed for the following: Sepsis Acute metabolic encephalopathy cannot rule out brain metastasis MRSA Multifocal pneumonia with bilateral malignant pleural effusion Possible complicated urinary tract infection/pyelonephritis Funguria Metastatic colon cancer Malignant pleural effusion Malignant adenocarcinoma of right pleural space Ongoing persistent nausea, vomiting, generalized pain Acute kidney injury Right leg acute DVT H/O IVC filter Partial small bowel obstruction Metastatic colon cancer Upper GI bleeding Esophagitis/Gastritis Acute blood loss anemia/ Acute on chronic anemia Hydroureteronephrosis --S/P cystoscopy and left ureteral stent placement Troponin elevation--Likely demand ischemia Small circumferential pericardial effusion H/O PE: H/O IVC Anxiety and depression: GERD Patient transition to comfort measures only given very poor prognosis and no improvement despite aggressive management Patient's understands and agrees with the plan Palliative care on board Continue comfort medications as needed Plan to transition to [facility] hospice as able CODE STATUS DNI DNR Comfort measures only Admission and Anticipated Discharge Date Admission Date: February 27, 2025 Subjective Patient is seen and examined at bedside States that she is concerned about her kids/family Denies any chest pain, abdominal pain Offers no complaints today On comfort measures only Review of Systems Review of Systems: All systems reviewed & are unremarkable except as noted in Subjective Physical Exam Physical Exam: Physical Exam: Vitals signs as noted above General Appearance:Moderately built, no apparent distress, ill-appearing Head: normocephalic, Atraumatic Eyes: normal inspection, EOMI Neck: supple, Trachea midline Respiratory/Chest: Decreased breath sounds, CTA,+ Port, No accessory muscle use Cardiovascular: S1, S2, No murmur, Tachycardia Abdomen/GI:Soft, Non tender, +Ileostomy : maloney, hematuria Extremities/Musculoskeletal:normal inspection, RLE > LLE edematous Neurologic/Psych:AAOX1-2, grossly no focal neurological deficits, Confused Skin: normal color, warm Results & Data Results & Data Vital Signs (Past 12 Hours) Vital Signs Resp 03/20/25 07:45 12 (1) Abdominal pain Abdominal location: generalized Qualified Code(s): R10.84 - Generalized abdominal pain
--- NOTE | 2025-03-21 14:20 | Hospitalist Progress Note ---
Date of Service March 21, 2025 Assessment & Plan (1) Abdominal pain: Plan: 44-year-old female with past medical history significant for metastatic colon adenocarcinoma mets to liver and peritoneum, perforated diverticulitis/adenocarcinoma status post colostomy, pulm embolism on Eliquis, C. difficile s/p treatment, anxiety and depression, iron deficiency anemia presents with abdominal pain. Patient is having ongoing pain for several weeks now. This is her third admission since last 1 month. Patient is status post right ureteral stent on and supposed to follow-up outpatient for stent removal. She was on Bactrim and amoxicillin for postop hepatic abscess, says no longer on antibiotics. She was again admitted 06 of February for small bowel obstruction and was discharged on 02/08/2025. Patient is followed with palliative care. Currently on p.o. Dilaudid 4 mg every 3 hours as needed for pain. Patient says Dilaudid is causing her nauseous. States abdominal pain is not getting better. She is having a lot of nausea and vomiting. She says not eating because of nausea. She is being managed for the following: Sepsis Acute metabolic encephalopathy cannot rule out brain metastasis MRSA Multifocal pneumonia with bilateral malignant pleural effusion Possible complicated urinary tract infection/pyelonephritis Funguria Metastatic colon cancer Malignant pleural effusion Malignant adenocarcinoma of right pleural space Ongoing persistent nausea, vomiting, generalized pain Acute kidney injury Right leg acute DVT H/O IVC filter Partial small bowel obstruction Metastatic colon cancer Upper GI bleeding Esophagitis/Gastritis Acute blood loss anemia/ Acute on chronic anemia Hydroureteronephrosis --S/P cystoscopy and left ureteral stent placement Troponin elevation--Likely demand ischemia Small circumferential pericardial effusion H/O PE: H/O IVC Anxiety and depression: GERD Patient transition to comfort measures only given very poor prognosis and no improvement despite aggressive management Patient's understands and agrees with the plan Palliative care on board Continue comfort medications as needed Patient currently does not meet [facility] hospice criteria Case management to help with discharge planning CODE STATUS DNI DNR Comfort measures only Admission and Anticipated Discharge Date Admission Date: February 27, 2025 Subjective Patient is seen and examined at bedside No distress on exam Offers no complaints On comfort measures only Review of Systems Review of Systems: All systems reviewed & are unremarkable except as noted in Subjective Physical Exam Physical Exam: Physical Exam: Vitals signs as noted above General Appearance:Moderately built, no apparent distress, ill-appearing Head: normocephalic, Atraumatic Eyes: normal inspection, EOMI Neck: supple, Trachea midline Respiratory/Chest: Decreased breath sounds, CTA,+ Port, No accessory muscle use Cardiovascular: S1, S2, No murmur, Tachycardia Abdomen/GI:Soft, Non tender, +Ileostomy : maloney, hematuria Extremities/Musculoskeletal:normal inspection, RLE > LLE edematous Neurologic/Psych:AAOX1-2, grossly no focal neurological deficits, Confused Skin: normal color, warm Results & Data Results & Data Vital Signs (Past 12 Hours) Vital Signs O2 Del Method 03/21/25 08:00 Room Air (1) Abdominal pain Abdominal location: generalized Qualified Code(s): R10.84 - Generalized abdominal pain
--- NOTE | 2025-03-22 13:26 | Palliative Care Progress Note ---
Date of Service March 22, 2025 Assessment & Plan (1) Cancer related pain: Plan: managed with prn dilaudid and TDF (2) Abdominal pain: (3) Palliative care by specialist: Plan: Palliative care will continue to follow for ongoing EOL pt care and family support, [facility] pending evaluation for GIP. (4) Adenocarcinoma of colon metastatic to liver: Admission and Anticipated Discharge Date Admission Date: February 27, 2025 Subjective Assessed pt at bedside, she was transitioned to [facility] on 03/19/25. Pt is drowsy but arousable. She nods appropriately to questions and denies pain. She appears comfortable, pale skin, extremities cool to touch. Respiratory effort decrease d, rate 12/min with no dyspnea reported. No visitors at bedside. Review of Systems Review of Systems: All systems reviewed & are unremarkable except as noted in Subjective Physical Exam Constitutional: WD/WN, vitals as above Eyes: PERRL, conjunctivae normal, anicteric sclerae Respiratory: normal respiratory effort, lungs clear to auscultation Cardiovascular: RRR, no murmur, no edema Skin: no rashes, warm and dry Psychiatric: A+Ox3, euthymic affect Results & Data Vital Signs (Past 12 Hours) Vital Signs Temp 36.2 C L 03/20/25 00:17 Pulse 92 H 03/20/25 00:17 Resp 12 03/20/25 07:45 BP 130/85 03/20/25 00:17 Pulse Ox 96 03/20/25 00:17 O2 Del Method Room Air 03/21/25 20:06 O2 Flow Rate 2 03/16/25 19:45 Intake & Output 03/21/25 03/22/25 03/22/25 18:59 06:59 18:59 Intake Total 347.333 / 544.333 197 / 544.333 Output Total 650 / 650 Balance 347.333 / -105.667 -453 / -105.667 Intake: IV 297.333 / 494.333 197 / 494.333 PANTOprazole 40 mg In Dextrose 297.333 / 494.333 197 / 494.333 5% Mini-B 100 ml @ 8 MG/HR 20 mls/hr IV Q5H [facility] Rx#:[id number] Oral 50 / 50 Output: Urine 125 / 125 Urine/Stool Mix 100 / 100 Urine Amount (Catheter) 425 / 425 Ram/Indwelling 425 / 425 Laboratory Results No further labs or diagnostics in concert with comfort directed care. Diagnostic Findings No further labs or diagnostics in concert with comfort directed care. Medications Administered Current Inpatient Medications Al Hydrox/Mg Hydrox/Simethicone (Aluminum/Magnesium/Simeth (Maalox Max) 30 Ml Udc) 15 ml PO Q6H PRN PRN Reason: Indigestion Stop: 04/07/25 14:48 Last Admin: 03/14/25 20:14 Dose: 15 ml Fentanyl (Fentanyl 25 Mcg/Hr Tdsy) 1 patch TD Q3D [facility] Stop: 03/31/25 12:29 Last Admin: 03/20/25 13:18 Dose: 1 patch Fentanyl (Fentanyl 12 Mcg/Hr Tdsy) 1 patch TD Q3D [place] Stop: 03/31/25 12:29 Last Admin: 03/20/25 13:18 Dose: 1 patch Glycopyrrolate (Glycopyrrolate 0.2 Mg/Ml Vial) 0.4 mg IV Q4H PRN PRN Reason: Rattling Secretions or Pulm Congestion Stop: 04/18/25 13:03 Hydromorphone HCl (Hydromorphone Inj 0.5 Mg/0.5 Ml Syr) 1 mg IV Q1H PRN PRN Reason: sev pain/dyspnea Stop: 04/01/25 15:18 Last Admin: 03/22/25 07:57 Dose: 1 mg Hydromorphone HCl (Hydromorphone Inj 0.5 Mg/0.5 Ml Syr) 0.5 mg IV Q30M PRN PRN Reason: Pain, air hunger Stop: 03/31/25 11:34 Last Admin: 03/22/25 00:20 Dose: 0.5 mg Prochlorperazine 5 mg/ Syringe 5 mls @ 5 mls/min IV Q6H PRN PRN Reason: Nausea And Vomiting Stop: 03/29/25 07:35 Last Admin: 03/14/25 20:18 Dose: 5 mls/min Pantoprazole Sodium 40 mg/ (Dextrose) 100 mls @ 20 mls/hr IV Q5H [place] Stop: 04/15/25 02:59 Last Admin: 03/22/25 08:01 Dose: 8 mg/hr, 20 mls/hr Palonosetron 0.25 mg/ Syringe 5 mls @ 10 mls/min IV DAILY [facility] Stop: 04/15/25 11:29 Last Admin: 03/22/25 10:33 Dose: 10 mls/min Lorazepam 0.5 mg/ Syringe 0.5 mls @ 2 mls/min IV Q4H PRN PRN Reason: Anxiety/Agitation,nausea,spasm Stop: 04/16/25 11:34 Last Admin: 03/19/25 05:13 Dose: 2 mls/min Lorazepam 1 mg/ Syringe 0.75 mls @ 2 mls/min IV Q4H PRN PRN Reason: terminal agitation,myoclonus Stop: 04/17/25 15:18 Miscellaneous (Fentanyl Patch Remove & Waste) 1 each N/A Q3D [facility] Stop: 04/16/25 12:29 Last Admin: 03/20/25 13:19 Dose: 1 each Miscellaneous (Check Fentanyl Patch Placement) 1 each N/A QS [facility] Stop: 04/16/25 15:59 Last Admin: 03/22/25 08:00 Dose: 1 each Morphine Sulfate (Morphine Sulfate 10 Mg/0.5 Ml Udp) 5 mg PO Q3H PRN PRN Reason: Pain or Respiratory Distress Stop: 04/02/25 13:03 Last Admin: 03/22/25 02:18 Dose: 5 mg Ondansetron HCl (Ondansetron Inj 2 Mg/Ml 2 Ml Vial) 4 mg IV Q4H PRN PRN Reason: Nausea &/or Vomiting Stop: 04/17/25 15:18 Phenol (Chloraseptic (Phenol) 1.4% Soln 180 Ml Btl) 2 sprays MT Q6H PRN PRN Reason: throat pain Stop: 03/31/25 09:26 Last Admin: 03/01/25 12:33 Dose: 2 sprays Sucralfate (Sucralfate 1 Gm Tab) 1 gm PO QID [facility] Stop: 04/04/25 16:59 Last Admin: 03/22/25 08:03 Dose: Not Given PG Care Time/CCT Total # of Minutes Spent Total Time Spent with Patient: Total time spent is greater than 50% in coordination of care (as documented) at patient's floor/unit and/or counseling patient: Coding [place] [address] SUB INP/OBS CARE 2/35MIN Patient Type Established History Expanded Problem Focused Exam Expanded Problem Focused Medical Decision Making Moderate Complexity Diagnoses Cancer related pain G89.3 Generalized abdominal pain R10.84 Abdominal location: generalized Palliative care by specialist Z51.5 Adenocarcinoma of colon metastatic to liver C18.9; C78.7 (2) Abdominal pain Abdominal location: generalized Qualified Code(s): R10.84 - Generalized abdominal pain
--- NOTE | 2025-03-22 17:07 | Hospitalist Progress Note ---
Date of Service March 22, 2025 Assessment & Plan (1) Abdominal pain: Plan: 44-year-old female with past medical history significant for metastatic colon adenocarcinoma mets to liver and peritoneum, perforated diverticulitis/adenocarcinoma status post colostomy, pulm embolism on Eliquis, C. difficile s/p treatment, anxiety and depression, iron deficiency anemia presents with abdominal pain. Patient is having ongoing pain for several weeks now. This is her third admission since last 1 month. Patient is status post right ureteral stent on and supposed to follow-up outpatient for stent removal. She was on Bactrim and amoxicillin for postop hepatic abscess, says no longer on antibiotics. She was again admitted 06 of February for small bowel obstruction and was discharged on 02/08/2025. Patient is followed with palliative care. Currently on p.o. Dilaudid 4 mg every 3 hours as needed for pain. Patient says Dilaudid is causing her nauseous. States abdominal pain is not getting better. She is having a lot of nausea and vomiting. She says not eating because of nausea. She is being managed for the following: Sepsis Acute metabolic encephalopathy cannot rule out brain metastasis MRSA Multifocal pneumonia with bilateral malignant pleural effusion Possible complicated urinary tract infection/pyelonephritis Funguria Metastatic colon cancer Malignant pleural effusion Malignant adenocarcinoma of right pleural space Ongoing persistent nausea, vomiting, generalized pain Acute kidney injury Right leg acute DVT H/O IVC filter Partial small bowel obstruction Metastatic colon cancer Upper GI bleeding Esophagitis/Gastritis Acute blood loss anemia/ Acute on chronic anemia Hydroureteronephrosis --S/P cystoscopy and left ureteral stent placement Troponin elevation--Likely demand ischemia Small circumferential pericardial effusion H/O PE: H/O IVC Anxiety and depression: GERD Patient transition to comfort measures only given very poor prognosis and no improvement despite aggressive management Patient's understands and agrees with the plan Continue comfort medications as needed Patient currently does not meet [facility] hospice criteria Case management to help with discharge planning Palliative care following Clinically deteriorating CODE STATUS DNI DNR Comfort measures only Admission and Anticipated Discharge Date Admission Date: February 27, 2025 Subjective Patient is seen and examined at bedside Drowsy, lethargic during my encounter Unable to obtain much history Discussed with palliative care today No distress on exam Currently on comfort measures only Review of Systems Review of Systems: Other Physical Exam Physical Exam: Physical Exam: Vitals signs as noted above General Appearance:Moderately built, no apparent distress, ill-appearing Head: normocephalic, Atraumatic Eyes: normal inspection, EOMI Neck: supple, Trachea midline Respiratory/Chest: Decreased breath sounds, CTA,+ Port, No accessory muscle use Cardiovascular: S1, S2, No murmur, Tachycardia Abdomen/GI:Soft, Non tender, +Ileostomy : maloney, hematuria Extremities/Musculoskeletal:normal inspection, RLE > LLE edematous Neurologic/Psych:AAOX1-2, grossly no focal neurological deficits, Confused Skin: normal color, warm (1) Abdominal pain Abdominal location: generalized Qualified Code(s): R10.84 - Generalized abdominal pain
[2025-03-22] MEDS: GLYCOPYRROLATE 0.2 MG/ML VIAL IV PRN (17:09)
[2025-03-22] MEDS ORDERED: Nursing to Pharmacy Communication SCH (21:00)
--- NOTE | 2025-03-23 09:26 | Palliative Care Progress Note ---
Date of Service March 23, 2025 Assessment & Plan (1) Cancer related pain: Plan: managed with prn dilaudid and TDF (2) Abdominal pain: (3) Palliative care by specialist: Plan: Palliative care will continue to follow for ongoing EOL pt care and family support, TRESTLEMAN pending evaluation for GIP. (4) Adenocarcinoma of colon metastatic to liver: Admission and Anticipated Discharge Date Admission Date: February 27, 2025 Subjective Assessed pt at bedside, she was transitioned to TRESTLEMAN on 03/19/25. Pt is more lethargic today. She appears comfortable, pale skin, extremities cool to touch. Respiratory effort decreased, rate 12/min with no dyspnea noted. No visitors at bedside. Review of Systems Review of Systems: All systems reviewed & are unremarkable except as noted in Subjective Physical Exam Constitutional: WD/WN, vitals as above Eyes: PERRL, conjunctivae normal, anicteric sclerae Respiratory: normal respiratory effort, lungs clear to auscultation Cardiovascular: RRR, no murmur, no edema Skin: no rashes, warm and dry Psychiatric: A+Ox3, euthymic affect Results & Data Vital Signs (Past 12 Hours) Vital Signs Temp 36.2 C L 03/20/25 00:17 Pulse 92 H 03/20/25 00:17 Resp 12 03/20/25 07:45 BP 130/85 03/20/25 00:17 Pulse Ox 96 03/20/25 00:17 O2 Del Method Room Air 03/22/25 20:35 O2 Flow Rate 2 03/16/25 19:45 Intake & Output 03/22/25 03/23/25 03/23/25 18:59 06:59 18:59 Intake Total 268 / 439.333 171.333 / 439.333 Output Total 375 / 375 Balance 268 / 64.333 -203.667 / 64.333 Intake: IV 268 / 439.333 171.333 / 439.333 PANTOprazole 40 mg In Dextrose 268 / 439.333 171.333 / 439.333 5% Mini-B 100 ml @ 8 MG/HR 20 mls/hr IV Q5H [facility] Rx#:[id number] Output: Urine Amount (Catheter) 375 / 375 Ram/Indwelling 375 / 375 Other: Other Intake Source Oral hygiene provided. Laboratory Results No further labs or diagnostics in concert with comfort directed care. Diagnostic Findings No further labs or diagnostics in concert with comfort directed care. Medications Administered Current Inpatient Medications Al Hydrox/Mg Hydrox/Simethicone (Aluminum/Magnesium/Simeth (Maalox Max) 30 Ml Udc) 15 ml PO Q6H PRN PRN Reason: Indigestion Stop: 04/07/25 14:48 Last Admin: 03/14/25 20:14 Dose: 15 ml Fentanyl (Fentanyl 25 Mcg/Hr Tdsy) 1 patch TD Q3D [facility] Stop: 03/31/25 12:29 Last Admin: 03/20/25 13:18 Dose: 1 patch Fentanyl (Fentanyl 12 Mcg/Hr Tdsy) 1 patch TD Q3D [facility] Stop: 03/31/25 12:29 Last Admin: 03/20/25 13:18 Dose: 1 patch Glycopyrrolate (Glycopyrrolate 0.2 Mg/Ml Vial) 0.4 mg IV Q4H PRN PRN Reason: Rattling Secretions or Pulm Congestion Stop: 04/18/25 13:03 Last Admin: 03/22/25 17:09 Dose: 0.4 mg Hydromorphone HCl (Hydromorphone Inj 0.5 Mg/0.5 Ml Syr) 1 mg IV Q1H PRN PRN Reason: sev pain/dyspnea Stop: 04/01/25 15:18 Last Admin: 03/23/25 08:06 Dose: 1 mg Hydromorphone HCl (Hydromorphone Inj 0.5 Mg/0.5 Ml Syr) 0.5 mg IV Q30M PRN PRN Reason: Pain, air hunger Stop: 03/31/25 11:34 Last Admin: 03/22/25 00:20 Dose: 0.5 mg Prochlorperazine 5 mg/ Syringe 5 mls @ 5 mls/min IV Q6H PRN PRN Reason: Nausea And Vomiting Stop: 03/29/25 07:35 Last Admin: 03/14/25 20:18 Dose: 5 mls/min Pantoprazole Sodium 40 mg/ (Dextrose) 100 mls @ 20 mls/hr IV Q5H [facility] Stop: 04/15/25 02:59 Last Admin: 03/23/25 05:38 Dose: 8 mg/hr, 20 mls/hr Palonosetron 0.25 mg/ Syringe 5 mls @ 10 mls/min IV DAILY [facility] Stop: 04/15/25 11:29 Last Admin: 03/22/25 10:33 Dose: 10 mls/min Lorazepam 0.5 mg/ Syringe 0.5 mls @ 2 mls/min IV Q4H PRN PRN Reason: Anxiety/Agitation,nausea,spasm Stop: 04/16/25 11:34 Last Admin: 03/19/25 05:13 Dose: 2 mls/min Lorazepam 1 mg/ Syringe 0.75 mls @ 2 mls/min IV Q4H PRN PRN Reason: terminal agitation,myoclonus Stop: 04/17/25 15:18 Miscellaneous (Fentanyl Patch Remove & Waste) 1 each N/A Q3D [facility] Stop: 04/16/25 12:29 Last Admin: 03/20/25 13:19 Dose: 1 each Miscellaneous (Check Fentanyl Patch Placement) 1 each N/A QS [facility] Stop: 04/16/25 15:59 Last Admin: 03/23/25 08:13 Dose: 1 each Morphine Sulfate (Morphine Sulfate 10 Mg/0.5 Ml Udp) 5 mg PO Q3H PRN PRN Reason: Pain or Respiratory Distress Stop: 04/02/25 13:03 Last Admin: 03/22/25 02:18 Dose: 5 mg Ondansetron HCl (Ondansetron Inj 2 Mg/Ml 2 Ml Vial) 4 mg IV Q4H PRN PRN Reason: Nausea &/or Vomiting Stop: 04/17/25 15:18 Phenol (Chloraseptic (Phenol) 1.4% Soln 180 Ml Btl) 2 sprays MT Q6H PRN PRN Reason: throat pain Stop: 03/31/25 09:26 Last Admin: 03/01/25 12:33 Dose: 2 sprays Sucralfate (Sucralfate 1 Gm Tab) 1 gm PO QID [facility] Stop: 04/04/25 16:59 Last Admin: 03/23/25 08:12 Dose: Not Given PG Care Time/CCT Total # of Minutes Spent Total Time Spent with Patient: Total time spent is greater than 50% in coordination of care (as documented) at patient's floor/unit and/or counseling patient: Coding [place] [address] SUB INP/OBS CARE 2/35MIN Patient Type Established History Problem Focused Exam Problem Focused Medical Decision Making Low Complexity Diagnoses Cancer related pain G89.3 Generalized abdominal pain R10.84 Abdominal location: generalized Palliative care by specialist Z51.5 Adenocarcinoma of colon metastatic to liver C18.9; C78.7 (2) Abdominal pain Abdominal location: generalized Qualified Code(s): R10.84 - Generalized abdominal pain
--- NOTE | 2025-03-23 14:36 | Hospitalist Progress Note ---
Date of Service March 23, 2025 Assessment & Plan (1) Abdominal pain: Plan: 44-year-old female with past medical history significant for metastatic colon adenocarcinoma mets to liver and peritoneum, perforated diverticulitis/adenocarcinoma status post colostomy, pulm embolism on Eliquis, C. difficile s/p treatment, anxiety and depression, iron deficiency anemia presents with abdominal pain. Patient is having ongoing pain for several weeks now. This is her third admission since last 1 month. Patient is status post right ureteral stent on and supposed to follow-up outpatient for stent removal. She was on Bactrim and amoxicillin for postop hepatic abscess, says no longer on antibiotics. She was again admitted 06 of February for small bowel obstruction and was discharged on 02/08/2025. Patient is followed with palliative care. Currently on p.o. Dilaudid 4 mg every 3 hours as needed for pain. Patient says Dilaudid is causing her nauseous. States abdominal pain is not getting better. She is having a lot of nausea and vomiting. She says not eating because of nausea. She is being managed for the following: Sepsis Acute metabolic encephalopathy cannot rule out brain metastasis MRSA Multifocal pneumonia with bilateral malignant pleural effusion Possible complicated urinary tract infection/pyelonephritis Funguria Metastatic colon cancer Malignant pleural effusion Malignant adenocarcinoma of right pleural space Ongoing persistent nausea, vomiting, generalized pain Acute kidney injury Right leg acute DVT H/O IVC filter Partial small bowel obstruction Metastatic colon cancer Upper GI bleeding Esophagitis/Gastritis Acute blood loss anemia/ Acute on chronic anemia Hydroureteronephrosis --S/P cystoscopy and left ureteral stent placement Troponin elevation--Likely demand ischemia Small circumferential pericardial effusion H/O PE: H/O IVC Anxiety and depression: GERD Patient transition to comfort measures only given very poor prognosis and no improvement despite aggressive management Patient's understands and agrees with the plan Continue comfort medications as needed Clinically deteriorating, No distress on exam Palliative care following CODE STATUS DNI DNR Comfort measures only Admission and Anticipated Discharge Date Admission Date: February 27, 2025 Subjective Patient is seen and examined at bedside More lethargic today Unable to provide any history No distress on exam Clinically deteriorating currently on comfort measures only Review of Systems Review of Systems: All systems reviewed & are unremarkable except as noted in Subjective Physical Exam Physical Exam: Physical Exam: Vitals signs as noted above General Appearance:Moderately built, no apparent distress, ill-appearing Head: normocephalic, Atraumatic Eyes: normal inspection, EOMI Neck: supple, Trachea midline Respiratory/Chest: Decreased breath sounds, CTA,+ Port, No accessory muscle use Cardiovascular: S1, S2, No murmur, Tachycardia Abdomen/GI:Soft, Non tender, +Ileostomy : maloney, hematuria Extremities/Musculoskeletal:normal inspection, RLE > LLE edematous Neurologic/Psych:AAOX1-2, grossly no focal neurological deficits, Confused Skin: normal color, warm (1) Abdominal pain Abdominal location: generalized Qualified Code(s): R10.84 - Generalized abdominal pain
--- NOTE | 2025-03-24 10:21 | Hospitalist Progress Note ---
Date of Service March 24, 2025 Assessment & Plan (1) Abdominal pain: Plan: 44-year-old female with past medical history significant for metastatic colon adenocarcinoma mets to liver and peritoneum, perforated diverticulitis/adenocar cinoma status post colostomy, pulm embolism on Eliquis, C. difficile s/p treatment, anxiety and depression, iron deficiency anemia presents with abdominal pain. Patient is having ongoing pain for several weeks now. This is her third admission since last 1 month. Patient is status post right ureteral stent on and supposed to follow-up outpatient for stent removal. She was on Bactrim and amoxicillin for postop hepatic abscess, says no longer on antibiotics. She was again admitted 06 of February for small bowel obstruction and was discharged on 02/08/2025. Patient is followed with palliative care. Currently on p.o. Dilaudid 4 mg every 3 hours as needed for pain. Patient says Dilaudid is causing her nauseous. States abdominal pain is not getting better. She is having a lot of nausea and vomiting. She says not eating because of nausea. She is being managed for the following: Sepsis Acute metabolic encephalopathy cannot rule out brain metastasis MRSA Multifocal pneumonia with bilateral malignant pleural effusion Possible complicated urinary tract infection/pyelonephritis Funguria Metastatic colon cancer Malignant pleural effusion Malignant adenocarcinoma of right pleural space Ongoing persistent nausea, vomiting, generalized pain Acute kidney injury Right leg acute DVT H/O IVC filter Partial small bowel obstruction Upper GI bleeding Esophagitis/Gastritis Acute blood loss anemia/ Acute on chronic anemia Hydroureteronephrosis --S/P cystoscopy and left ureteral stent placement Troponin elevation--Likely demand ischemia Small circumferential pericardial effusion H/O PE: H/O IVC Anxiety and depression: GERD Patient transitioned to comfort measures only given very poor prognosis and no improvement despite aggressive management Continue comfort medications as needed Palliative care following Clinically deteriorating, No distress on exam CODE STATUS DNI DNR Comfort measures only Admission and Anticipated Discharge Date Admission Date: February 27, 2025 Subjective Patient seen in follow up, pt's RN present at the bedside and discussed with Pt lying in bed in NAD, appears very drowsy, doesn't answer any questions, eyes half open Unable to provide any history No distress on exam currently on comfort measures only Review of Systems Review of Systems: Unobtainable due to cognitive status Physical Exam Physical Exam: General Appearance:Moderately built, no apparent distress, ill-appearing Head: normocephalic, Atraumatic Respiratory/Chest: Decreased breath sounds, CTA,+ Port Cardiovascular: S1, S2, No murmur, Tachycardia Abdomen/GI:Soft, Non tender, +Ileostomy : maloney, hematuria Extremities/Musculoskeletal:normal inspection, + LE edema b/l Neurologic/Psych: drowsy, does not answer questions, eyes half open Skin: warm Results & Data Results & Data Vital Signs (Past 12 Hours) Vital Signs Resp O2 Del Method 03/24/25 09:56 8 L 03/24/25 07:36 Room Air Medications Administered Current Inpatient Medications Al Hydrox/Mg Hydrox/Simethicone (Aluminum/Magnesium/Simeth (Maalox Max) 30 Ml Udc) 15 ml PO Q6H PRN PRN Reason: Indigestion Stop: 04/07/25 14:48 Last Admin: 03/14/25 20:14 Dose: 15 ml Fentanyl (Fentanyl 25 Mcg/Hr Tdsy) 1 patch TD Q3D [facility] Stop: 03/31/25 12:29 Last Admin: 03/23/25 13:38 Dose: 1 patch Fentanyl (Fentanyl 12 Mcg/Hr Tdsy) 1 patch TD Q3D [facility] Stop: 03/31/25 12:29 Last Admin: 03/23/25 13:39 Dose: 1 patch Glycopyrrolate (Glycopyrrolate 0.2 Mg/Ml Vial) 0.4 mg IV Q4H PRN PRN Reason: Rattling Secretions or Pulm Congestion Stop: 04/18/25 13:03 Last Admin: 03/22/25 17:09 Dose: 0.4 mg Hydromorphone HCl (Hydromorphone Inj 0.5 Mg/0.5 Ml Syr) 1 mg IV Q1H PRN PRN Reason: sev pain/dyspnea Stop: 04/01/25 15:18 Last Admin: 03/24/25 05:40 Dose: 1 mg Hydromorphone HCl (Hydromorphone Inj 0.5 Mg/0.5 Ml Syr) 0.5 mg IV Q30M PRN PRN Reason: Pain, air hunger Stop: 03/31/25 11:34 Last Admin: 03/22/25 00:20 Dose: 0.5 mg Prochlorperazine 5 mg/ Syringe 5 mls @ 5 mls/min IV Q6H PRN PRN Reason: Nausea And Vomiting Stop: 03/29/25 07:35 Last Admin: 03/14/25 20:18 Dose: 5 mls/min Pantoprazole Sodium 40 mg/ (Dextrose) 100 mls @ 20 mls/hr IV Q5H [facility] Stop: 04/15/25 02:59 Last Admin: 03/24/25 07:10 Dose: 8 mg/hr, 20 mls/hr Palonosetron 0.25 mg/ Syringe 5 mls @ 10 mls/min IV DAILY [facility] Stop: 04/15/25 11:29 Last Admin: 03/24/25 09:45 Dose: 10 mls/min Lorazepam 0.5 mg/ Syringe 0.5 mls @ 2 mls/min IV Q4H PRN PRN Reason: Anxiety/Agitation,nausea,spasm Stop: 04/16/25 11:34 Last Admin: 03/19/25 05:13 Dose: 2 mls/min Lorazepam 1 mg/ Syringe 0.75 mls @ 2 mls/min IV Q4H PRN PRN Reason: terminal agitation,myoclonus Stop: 04/17/25 15:18 Miscellaneous (Fentanyl Patch Remove & Waste) 1 each N/A Q3D [facility] Stop: 04/16/25 12:29 Last Admin: 03/23/25 13:39 Dose: 1 each Miscellaneous (Check Fentanyl Patch Placement) 1 each N/A QS [facility] Stop: 04/16/25 15:59 Last Admin: 03/24/25 07:10 Dose: 1 each Morphine Sulfate (Morphine Sulfate 10 Mg/0.5 Ml Udp) 5 mg PO Q3H PRN PRN Reason: Pain or Respiratory Distress Stop: 04/02/25 13:03 Last Admin: 03/22/25 02:18 Dose: 5 mg Ondansetron HCl (Ondansetron Inj 2 Mg/Ml 2 Ml Vial) 4 mg IV Q4H PRN PRN Reason: Nausea &/or Vomiting Stop: 04/17/25 15:18 Phenol (Chloraseptic (Phenol) 1.4% Soln 180 Ml Btl) 2 sprays MT Q6H PRN PRN Reason: throat pain Stop: 03/31/25 09:26 Last Admin: 03/01/25 12:33 Dose: 2 sprays Sucralfate (Sucralfate 1 Gm Tab) 1 gm PO QID [facility] Stop: 04/04/25 16:59 Last Admin: 03/24/25 08:13 Dose: Not Given (1) Abdominal pain Abdominal location: generalized Qualified Code(s): R10.84 - Generalized abdominal pain
--- NOTE | 2025-03-24 13:07 | Palliative Care Progress Note ---
Date of Service March 24, 2025 Assessment & Plan (1) Cancer related pain: Plan: managed with prn dilaudid and TDF. pt more drowsy but arousable, denies pain currently and needing less frequent PRN medications. (2) Abdominal pain: (3) Palliative care by specialist: Plan: Palliative care will continue to follow for ongoing EOL pt care and family support, RIP [employer]PERATOR pending evaluation for GIP. Phone call placed to pt's spouse, he is traveling with kids and has patchy signal. I had difficulty hearing his responses but I did share updates with him including changes in assessment c/w transition to active phase of dying. Phone call dropped abruptly and attempts to recall Ronny were unsuccessful. (4) Adenocarcinoma of colon metastatic to liver: Admission and Anticipated Discharge Date Admission Date: February 27, 2025 Subjective Assessed pt at bedside, she was transitioned to RIP SAW OPERATOR on 03/19/25. Pt remains lethargic today. She appears comfortable, pale skin, extremities cool to touch. Respiratory effort decreased, rate 7-10/min with frequent short periods of segmental paver installer ea; no dyspnea or accessory muscle use noted. No visitors at bedside. Review of Systems Review of Systems: All systems reviewed & are unremarkable except as noted in Subjective Physical Exam Constitutional: WD/WN, vitals as above Eyes: PERRL, conjunctivae normal, anicteric sclerae Respiratory: + abnormal respiratory pattern Auscul tation: lungs clear to auscultation bilaterally and + diminished lung sounds decreased resp effort, frequent short periods of apnea noted, rate 7-10/min Cardiovascular: RRR, no murmur, no edema Skin: no rashes, warm and dry Psychiatric: A+Ox3, euthymic affect Results & Data Vital Signs (Past 12 Hours) Vital Signs Resp O2 Del Method 03/24/25 09:56 8 L 03/24/25 07:36 Room Air Laboratory Results No further labs or diagnostics in concert with comfort directed care. Diagnostic Findings No further labs or diagnostics in concert with comfort directed care. Medications Administered Current Inpatient Medications Al Hydrox/Mg Hydrox/Simethicone (Aluminum/Magnesium/Simeth (Maalox Max) 30 Ml Udc) 15 ml PO Q6H PRN PRN Reason: Indigestion Stop: 04/07/25 14:48 Last Admin: 03/14/25 20:14 Dose: 15 ml Fentanyl (Fentanyl 25 Mcg/Hr Tdsy) 1 patch TD Q3D [facility] Stop: 03/31/25 12:29 Last Admin: 03/23/25 13:38 Dose: 1 patch Fentanyl (Fentanyl 12 Mcg/Hr Tdsy) 1 patch TD Q3D [facility] Stop: 03/31/25 12:29 Last Admin: 03/23/25 13:39 Dose: 1 patch Glycopyrrolate (Glycopyrrolate 0.2 Mg/Ml Vial) 0.4 mg IV Q4H PRN PRN Reason: Rattling Secretions or Pulm Congestion Stop: 04/18/25 13:03 Last Admin: 03/22/25 17:09 Dose: 0.4 mg Hydromorphone HCl (Hydromorphone Inj 0.5 Mg/0.5 Ml Syr) 1 mg IV Q1H PRN PRN Reason: sev pain/dyspnea Stop: 04/01/25 15:18 Last Admin: 03/24/25 05:40 Dose: 1 mg Hydromorphone HCl (Hydromorphone Inj 0.5 Mg/0.5 Ml Syr) 0.5 mg IV Q30M PRN PRN Reason: Pain, air hunger Stop: 03/31/25 11:34 Last Admin: 03/22/25 00:20 Dose: 0.5 mg Prochlorperazine 5 mg/ Syringe 5 mls @ 5 mls/min IV Q6H PRN PRN Reason: Nausea And Vomiting Stop: 03/29/25 07:35 Last Admin: 03/14/25 20:18 Dose: 5 mls/min Pantoprazole Sodium 40 mg/ (Dextrose) 100 mls @ 20 mls/hr IV Q5H [facility] Stop: 04/15/25 02:59 Last Admin: 03/24/25 12:09 Dose: 8 mg/hr, 20 mls/hr Palonosetron 0.25 mg/ Syringe 5 mls @ 10 mls/min IV DAILY [facility] Stop: 04/15/25 11:29 Last Admin: 03/24/25 09:45 Dose: 10 mls/min Lorazepam 0.5 mg/ Syringe 0.5 mls @ 2 mls/min IV Q4H PRN PRN Reason: Anxiety/Agitation,nausea,spasm Stop: 04/16/25 11:34 Last Admin: 03/19/25 05:13 Dose: 2 mls/min Lorazepam 1 mg/ Syringe 0.75 mls @ 2 mls/min IV Q4H PRN PRN Reason: terminal agitation,myoclonus Stop: 04/17/25 15:18 Miscellaneous (Fentanyl Patch Remove & Waste) 1 each N/A Q3D [facility] Stop: 04/16/25 12:29 Last Admin: 03/23/25 13:39 Dose: 1 each Miscellaneous (Check Fentanyl Patch Placement) 1 each N/A QS [facility] Stop: 04/16/25 15:59 Last Admin: 03/24/25 07:10 Dose: 1 each Morphine Sulfate (Morphine Sulfate 10 Mg/0.5 Ml Udp) 5 mg PO Q3H PRN PRN Reason: Pain or Respiratory Distress Stop: 04/02/25 13:03 Last Admin: 03/24/25 12:46 Dose: 5 mg Ondansetron HCl (Ondansetron Inj 2 Mg/Ml 2 Ml Vial) 4 mg IV Q4H PRN PRN Reason: Nausea &/or Vomiting Stop: 04/17/25 15:18 Phenol (Chloraseptic (Phenol) 1.4% Soln 180 Ml Btl) 2 sprays MT Q6H PRN PRN Reason: throat pain Stop: 03/31/25 09:26 Last Admin: 03/01/25 12:33 Dose: 2 sprays Sucralfate (Sucralfate 1 Gm Tab) 1 gm PO QID [facility] Stop: 04/04/25 16:59 Last Admin: 03/24/25 12:09 Dose: Not Given PG Care Time/CCT Total # of Minutes Spent Total Time Spent with Patient: Total time spent is greater than 50% in coordination of care (as documented) at patient's floor/unit and/or counseling patient: Coding [place] [address] SUB INP/OBS CARE 2/35MIN Patient Type Established History Problem Focused Exam Problem Focused Medical Decision Making Low Complexity Diagnoses Cancer related pain G89.3 Generalized abdominal pain R10.84 Abdominal location: generalized Palliative care by specialist Z51.5 Adenocarcinoma of colon metastatic to liver C18.9; C78.7 (2) Abdominal pain Abdominal location: generalized Qualified Code(s): R10.84 - Generalized abdominal pain
--- NOTE | 2025-03-25 14:09 | Palliative Care Progress Note ---
Date of Service March 25, 2025 Assessment & Plan (1) Cancer related pain: Plan: managed with prn dilaudid and TDF. pt more drowsy but arousable, denies pain currently and currently only needing occasional PRN medications. (2) Abdominal pain: (3) Palliative care by specialist: Plan: Palliative care will continue to follow for ongoing EOL pt care and family support, LOCK UP WORKER pending evaluation for GIP. (4) Adenocarcinoma of colon metastatic to liver: Admission and Anticipated Discharge Date Admission Date: February 27, 2025 Subjective Assessed pt at bedside, she was transitioned to LOCK UP WORKER on 03/19/25. Pt remains lethargic today. She appears comfortable, pale skin, extremities cool to touch. Respiratory effort decreased, rate 7-10/min with frequent short periods of apnea; no dyspnea or accessory muscle use noted. No visitors at bedside. Review of Systems Review of Systems: All systems reviewed & are unremarkable except as noted in Subjective Physical Exam Constitutional: WD/WN, vitals as above Eyes: PERRL, conjunctivae normal, anicteric sclerae Respiratory: normal respiratory effort, lungs clear to auscultation + abnormal respiratory pattern Auscultation: lungs clear to auscultation bilaterally and + diminished lung sounds Cardiovascular: RRR, no murmur, no edema Skin: no rashes, warm and dry Psychiatric: A+Ox3, euthymic affect Results & Data Vital Signs (Past 12 Hours) Vital Signs O2 Del Method 03/25/25 08:00 Room Air Laboratory Results No further labs or diagnostics in concert with comfort directed care. Diagnostic Findings No further labs or diagnostics in concert with comfort directed care. Medications Administered Current Inpatient Medications Al Hydrox/Mg Hydrox/Simethicone (Aluminum/Magnesium/Simeth (Maalox Max) 30 Ml Udc) 15 ml PO Q6H PRN PRN Reason: Indigestion Stop: 04/07/25 14:48 Last Admin: 03/14/25 20:14 Dose: 15 ml Fentanyl (Fentanyl 25 Mcg/Hr Tdsy) 1 patch TD Q3D [facility] Stop: 03/31/25 12:29 Last Admin: 03/23/25 13:38 Dose: 1 patch Fentanyl (Fentanyl 12 Mcg/Hr Tdsy) 1 patch TD Q3D [facility] Stop: 03/31/25 12:29 Last Admin: 03/23/25 13:39 Dose: 1 patch Glycopyrrolate (Glycopyrrolate 0.2 Mg/Ml Vial) 0.4 mg IV Q4H PRN PRN Reason: Rattling Secretions or Pulm Congestion Stop: 04/18/25 13:03 Last Admin: 03/22/25 17:09 Dose: 0.4 mg Hydromorphone HCl (Hydromorphone Inj 0.5 Mg/0.5 Ml Syr) 1 mg IV Q1H PRN PRN Reason: sev pain/dyspnea Stop: 04/01/25 15:18 Last Admin: 03/24/25 05:40 Dose: 1 mg Hydromorphone HCl (Hydromorphone Inj 0.5 Mg/0.5 Ml Syr) 0.5 mg IV Q30M PRN PRN Reason: Pain, air hunger Stop: 03/31/25 11:34 Last Admin: 03/22/25 00:20 Dose: 0.5 mg Prochlorperazine 5 mg/ Syringe 5 mls @ 5 mls/min IV Q6H PRN PRN Reason: Nausea And Vomiting Stop: 03/29/25 07:35 Last Admin: 03/14/25 20:18 Dose: 5 mls/min Pantoprazole Sodium 40 mg/ (Dextrose) 100 mls @ 20 mls/hr IV Q5H [facility] Stop: 04/15/25 02:59 Last Admin: 03/25/25 13:39 Dose: 8 mg/hr, 20 mls/hr Palonosetron 0.25 mg/ Syringe 5 mls @ 10 mls/min IV DAILY [facility] Stop: 04/15/25 11:29 Last Admin: 03/25/25 08:09 Dose: 10 mls/min Lorazepam 0.5 mg/ Syringe 0.5 mls @ 2 mls/min IV Q4H PRN PRN Reason: Anxiety/Agitation,nausea,spasm Stop: 04/16/25 11:34 Last Admin: 03/19/25 05:13 Dose: 2 mls/min Lorazepam 1 mg/ Syringe 0.75 mls @ 2 mls/min IV Q4H PRN PRN Reason: terminal agitation,myoclonus Stop: 04/17/25 15:18 Miscellaneous (Fentanyl Patch Remove & Waste) 1 each N/A Q3D [facility] Stop: 04/16/25 12:29 Last Admin: 03/23/25 13:39 Dose: 1 each Miscellaneous (Check Fentanyl Patch Placement) 1 each N/A QS [facility] Stop: 04/16/25 15:59 Last Admin: 03/25/25 08:09 Dose: 1 each Morphine Sulfate (Morphine Sulfate 10 Mg/0.5 Ml Udp) 5 mg PO Q3H PRN PRN Reason: Pain or Respiratory Distress Stop: 04/02/25 13:03 Last Admin: 03/25/25 10:56 Dose: 5 mg Ondansetron HCl (Ondansetron Inj 2 Mg/Ml 2 Ml Vial) 4 mg IV Q4H PRN PRN Reason: Nausea &/or Vomiting Stop: 04/17/25 15:18 Phenol (Chloraseptic (Phenol) 1.4% Soln 180 Ml Btl) 2 sprays MT Q6H PRN PRN Reason: throat pain Stop: 03/31/25 09:26 Last Admin: 03/01/25 12:33 Dose: 2 sprays PG Care Time/CCT Total # of Minutes Spent Total Time Spent with Patient: Total time spent is greater than 50% in coordination of care (as documented) at patient's floor/unit and/or counseling patient: Coding [place] [address] SUB INP/OBS CARE 2/35MIN Patient Type Established History Expanded Problem Focused Exam Expanded Problem Focused Medical Decision Making Low Complexity Diagnoses Cancer related pain G89.3 Generalized abdominal pain R10.84 Abdominal location: generalized Palliative care by specialist Z51.5 Adenocarcinoma of colon metastatic to liver C18.9; C78.7 (2) Abdominal pain Abdominal location: generalized Qualified Code(s): R10.84 - Generalized abdominal pain
--- NOTE | 2025-03-25 18:04 | Hospitalist Progress Note ---
Date of Service March 25, 2025 Assessment & Plan (1) Abdominal pain: Plan: 44-year-old female with past medical history significant for metastatic colon adenocarcinoma mets to liver and peritoneum, perforated diverticulitis/adenocar cinoma status post colostomy, pulm embolism on Eliquis, C. difficile s/p treatment, anxiety and depression, iron deficiency anemia presents with abdominal pain. Patient is having ongoing pain for several weeks now. This is her third admission since last 1 month. Patient is status post right ureteral stent on and supposed to follow-up outpatient for stent removal. She was on Bactrim and amoxicillin for postop hepatic abscess, says no longer on antibiotics. She was again admitted 06 of February for small bowel obstruction and was discharged on 02/08/2025. Patient is followed with palliative care. Currently on p.o. Dilaudid 4 mg every 3 hours as needed for pain. Patient says Dilaudid is causing her nauseous. States abdominal pain is not getting better. She is having a lot of nausea and vomiting. She says not eating because of nausea. She is being managed for the following: Sepsis Acute metabolic encephalopathy cannot rule out brain metastasis MRSA Multifocal pneumonia with bilateral malignant pleural effusion Possible complicated urinary tract infection/pyelonephritis Funguria Metastatic colon cancer Malignant pleural effusion Malignant adenocarcinoma of right pleural space Ongoing persistent nausea, vomiting, generalized pain Acute kidney injury Right leg acute DVT H/O IVC filter Partial small bowel obstruction Upper GI bleeding Esophagitis/Gastritis Acute blood loss anemia/ Acute on chronic anemia Hydroureteronephrosis --S/P cystoscopy and left ureteral stent placement Troponin elevation--Likely demand ischemia Small circumferential pericardial effusion H/O PE: H/O IVC Anxiety and depression: GERD Patient transitioned to comfort measures only given very poor prognosis and no improvement despite aggressive management Continue comfort medications as needed Palliative care following Clinically deteriorating, No distress on exam CODE STATUS DNI DNR Comfort measures only Admission and Anticipated Discharge Date Admission Date: February 27, 2025 Subjective Patient seen in follow up, pt's RN present at the bedside and discussed with Pt lying in bed in NAD, appears drowsy, but able to reply 'no" when asked if she was in any pain or discomfort Unable to provide any history No distress on exam currently on comfort measures only per RN, pt's and family currently traveling. Review of Systems Review of Systems: All systems reviewed & are unremarkable except as noted in Subjective Physical Exam Physical Exam: General Appearance:Moderately built, no apparent distress, ill-appearing Head: normocephalic, Atraumatic Respiratory/Chest: Decreased breath sounds, CTA,+ Port Cardiovascular: S1, S2, No murmur, Tachycardia Abdomen/GI:Soft, Non tender, +Ileostomy : maloney Extremities/Musculoskeletal:normal inspection, + LE edema b/l Neurologic/Psych: drowsy, eyes half open, able to answer 'no" when asked about pain Skin: warm Results & Data Results & Data Vital Signs (Past 12 Hours) Vital Signs O2 Del Method 03/25/25 08:00 Room Air Medications Administered Current Inpatient Medications Al Hydrox/Mg Hydrox/Simethicone (Aluminum/Magnesium/Simeth (Maalox Max) 30 Ml Udc) 15 ml PO Q6H PRN PRN Reason: Indigestion Stop: 04/07/25 14:48 Last Admin: 03/14/25 20:14 Dose: 15 ml Fentanyl (Fentanyl 25 Mcg/Hr Tdsy) 1 patch TD Q3D [facility] Stop: 03/31/25 12:29 Last Admin: 03/23/25 13:38 Dose: 1 patch Fentanyl (Fentanyl 12 Mcg/Hr Tdsy) 1 patch TD Q3D [facility] Stop: 03/31/25 12:29 Last Admin: 03/23/25 13:39 Dose: 1 patch Glycopyrrolate (Glycopyrrolate 0.2 Mg/Ml Vial) 0.4 mg IV Q4H PRN PRN Reason: Rattling Secretions or Pulm Congestion Stop: 04/18/25 13:03 Last Admin: 03/22/25 17:09 Dose: 0.4 mg Hydromorphone HCl (Hydromorphone Inj 0.5 Mg/0.5 Ml Syr) 1 mg IV Q1H PRN PRN Reason: sev pain/dyspnea Stop: 04/01/25 15:18 Last Admin: 03/24/25 05:40 Dose: 1 mg Hydromorphone HCl (Hydromorphone Inj 0.5 Mg/0.5 Ml Syr) 0.5 mg IV Q30M PRN PRN Reason: Pain, air hunger Stop: 03/31/25 11:34 Last Admin: 03/22/25 00:20 Dose: 0.5 mg Prochlorperazine 5 mg/ Syringe 5 mls @ 5 mls/min IV Q6H PRN PRN Reason: Nausea And Vomiting Stop: 03/29/25 07:35 Last Admin: 03/14/25 20:18 Dose: 5 mls/min Pantoprazole Sodium 40 mg/ (Dextrose) 100 mls @ 20 mls/hr IV Q5H [facility] Stop: 04/15/25 02:59 Last Admin: 03/25/25 13:39 Dose: 8 mg/hr, 20 mls/hr Palonosetron 0.25 mg/ Syringe 5 mls @ 10 mls/min IV DAILY [facility] Stop: 04/15/25 11:29 Last Admin: 03/25/25 08:09 Dose: 10 mls/min Lorazepam 0.5 mg/ Syringe 0.5 mls @ 2 mls/min IV Q4H PRN PRN Reason: Anxiety/Agitation,nausea,spasm Stop: 04/16/25 11:34 Last Admin: 03/19/25 05:13 Dose: 2 mls/min Lorazepam 1 mg/ Syringe 0.75 mls @ 2 mls/min IV Q4H PRN PRN Reason: terminal agitation,myoclonus Stop: 04/17/25 15:18 Miscellaneous (Fentanyl Patch Remove & Waste) 1 each N/A Q3D [facility] Stop: 04/16/25 12:29 Last Admin: 03/23/25 13:39 Dose: 1 each Miscellaneous (Check Fentanyl Patch Placement) 1 each N/A QS [facility] Stop: 04/16/25 15:59 Last Admin: 03/25/25 16:11 Dose: 1 each Morphine Sulfate (Morphine Sulfate 10 Mg/0.5 Ml Udp) 5 mg PO Q3H PRN PRN Reason: Pain or Respiratory Distress Stop: 04/02/25 13:03 Last Admin: 03/25/25 16:30 Dose: 5 mg Ondansetron HCl (Ondansetron Inj 2 Mg/Ml 2 Ml Vial) 4 mg IV Q4H PRN PRN Reason: Nausea &/or Vomiting Stop: 04/17/25 15:18 Phenol (Chloraseptic (Phenol) 1.4% Soln 180 Ml Btl) 2 sprays MT Q6H PRN PRN Reason: throat pain Stop: 03/31/25 09:26 Last Admin: 03/01/25 12:33 Dose: 2 sprays (1) Abdominal pain Abdominal location: generalized Qualified Code(s): R10.84 - Generalized abdominal pain
[2025-03-26 12:30] VITALS: RESP 22; TEMP 98.8; O2SAT 84
--- NOTE | 2025-03-26 17:26 | Hospitalist Progress Note ---
Date of Service March 26, 2025 Assessment & Plan Admission and Anticipated Discharge Date Admission Date: February 27, 2025 Subjective NOTE Pt does not respond to verbal or tactile stimuli. There are no breath sounds, no heart sounds. No carotid or radial pulse. Pupils fixed and dilated. Time of : 5:14 PM Results & Data Results & Data Vital Signs (Past 12 Hours) Vital Signs Temp Pulse Resp Pulse Ox O2 Del Method 03/26/25 11:30 37.1 C 92 H 22 84 L Room Air 03/26/25 08:30 Room Air
--- NOTE | 2025-03-26 17:31 | Discharge Summary ---
Date of Service March 26, 2025 Admission HPI Per Admitting Provider 44-year-old female with past medical history significant for metastatic colon adenocarcinoma mets to liver and peritoneum, perforated diverticulitis/adenocarcinoma status post colostomy, pulm embolism on Eliquis, C . difficile s/p treatment, anxiety and depression, iron deficiency anemia presents with abdominal pain.Patient is having ongoing pain for several weeks now. This is her third admission since last 1 month. Patient is status post right ureteral stent on and supposed to follow-up outpatient for stent removal. She was on Bactrim and amoxicillin for postop hepatic abscess, says no longer on antibiotics. She was again admitted 06 of February for small bowel obstruction and was discharged on 02/08/2025. Patient is followed with palliative care. Currently on p.o. Dilaudid 4 mg every 3 hours as needed for pain. Patient says Dilaudid is causing her nauseous. States abdominal pain is not getting better. She is having a lot of nausea and vomiting. She says not eating because of nausea. Today evening she had a fever. She is having blood in the urine. Somewhat constipated. Denies any chest pain or shortness of breath. No headache. No runny nose or sore throat. Hemodynamics are okay. Patient states wants to try morphine for pain instead of Dilaudid. Past medical history. As mentioned above Past surgical history. Gastric band revision laparoscopic. IVC filter. Pa rtial removal of colon. Status post colostomy. . Ureteral stent placement. Social history. No smoking. No alcohol use. No drug use. Family history. Mother had lung disease. Paternal grandmother has dementia. Maternal grandfather had heart attack. Paternal grandfather heart attack. Admission Exam Per Admitting Provider General-Not in distress Head- atraumatic Eyes- PERRL. ENT- oropharynx clear Neck- supple, no JVD. Lungs- clear to auscultation no wheezing or crackles Heart- regular rhythm; no murmur, no gallop. Abdomen- normal bowel sounds, soft, diffuse tender, no distension, colostomy bag seen Extremities- no pretibial edema, no erythema seen Neuro- alert, oriented PERRL, no facial palsy; no dysarthria; moves extremities Principal Diagnosis Metastatic colon cancer Malignant pleural effusion Malignant adenocarcinoma of right pleural space Ongoing persistent nausea, vomiting, generalized pain Acute kidney injury Sepsis Acute metabolic encephalopathy cannot rule out brain metastasis MRSA Multifocal pneumonia with bilateral malignant pleural effusion Possible complicated urinary tract infection/pyelonephritis Funguria Discharge Exam Pt does not respond to verbal or tactile stimuli. There are no breath sounds, no heart sounds. No carotid or radial pulse. Pupils fixed and dilated. Time of : 5:14 PM Discharge Data Allergies Allergy/AdvReac Type Severity Reaction Status Date / Time oxaliplatin Allergy Intermediate "HOT & Verified 02/27/25 00:23 ITCHY" IMMEDIATELY vancomycin Allergy Intermediate "HOT & Verified 02/27/25 00:23 ITCHY" IMMEDIATELY Consultations 02/27/25 01:53 ED Decision to Admit Stat 02/27/25 08:00 Consult Urology Routine 03/01/25 08:41 Consult Gastroenterology Routine 03/02/25 14:47 Consult General Surgery Routine 03/04/25 13:14 Consult Palliative Care Routine 03/05/25 16:23 Consult Pulmonology Routine 03/06/25 11:44 Consult Infectious Diseases Routine 03/16/25 12:51 Consult Manager Nicu Routine 03/16/25 13:44 Consult Gastroenterology Routine 03/17/25 09:24 Consult Nephrology Routine Procedures Performed Operation Date: 03/02/25 17:10 Actual Procedures p EGD Biopsy Cytology - Santiago Richardson MD Ordered Studies 02/26/25 23:19 CT Abd and Pelvis [CT abd pelvis IV con only] Stat 02/28/25 FL KUB Routine 03/02/25 14:52 CT abd pelvis oral and IV con Urgent 03/05/25 13:23 CT chest diagnostic wo con Routine 03/06/25 00:08 US point of care ultrasound Stat 03/08/25 08:42 US point of care ultrasound Urgent 03/09/25 IR thoracentesis wo tube US Routine 03/09/25 22:29 CT Abd and Pelvis [CT abd pelvis wo con] Stat 03/15/25 06:12 CT head/brain wo con Urgent 03/16/25 01:43 US venous doppler LE RT Stat 03/17/25 11:51 CT Abd and Pelvis [CT abd pelvis wo con] Stat 03/18/25 02:27 US arterial duplex LE LT Stat Hospital Course (1) Abdominal pain: 44-year-old female with past medical history significant for metastatic colon adenocarcinoma mets to liver and peritoneum, perforated diverticulitis/adenocarcinoma status post colostomy, pulm embolism on Eliquis, C. difficile s/p treatment, anxiety and depression, iron deficiency anemia pre sents with abdominal pain. Patient is having ongoing pain for several weeks now. This is her third admission since last 1 month. Patient is status post right ureteral stent on and supposed to follow-up outpatient for stent removal. She was on Bactrim and amoxicillin for postop hepatic abscess, says no longer on antibiotics. She was again admitted 06 of February for small bowel obstruction and was discharged on 02/08/2025. Patient is followed with palliative care. Currently on p.o. Dilaudid 4 mg every 3 hours as needed for pain. Patient says Dilaudid is causing her nauseous. States abdominal pain is not getting better. She is having a lot of nausea and vomiting. She says not eating because of nausea. She is being managed for the following: Metastatic colon cancer Ongoing persistent nausea, vomiting, generalized pain Malignant pleural effusion Malignant adenocarcinoma of right pleural space Acute kidney injury Sepsis Acute metabolic encephalopathy cannot rule out brain metastasis MRSA Multifocal pneumonia with bilateral malignant pleural effusion Possible complicated urinary tract infection/pyelonephritis Funguria Right leg acute DVT H/O IVC filter Partial small bowel obstruction Upper GI bleeding Esophagitis/Gastritis Acute blood loss anemia/ Acute on chronic anemia Hydroureteronephrosis --S/P cystoscopy and left ureteral stent placement Troponin elevation--Likely demand ischemia Small circumferential pericardial effusion H/O PE: H/O IVC Anxiety and depression: GERD Patient transitioned to comfort measures only given very poor prognosis and no improvement despite aggressive management Palliative medicine following closely Pt 03/26/2025 at 5:14 PM Sepsis Acute metabolic encephalopathy cannot rule out brain metastasis MRSA Multifocal pneumonia with bilateral malignant pleural effusion Possible complicated urinary tract infection/pyelonephritis Funguria --Chest CT:Increased pneumonia and increased pleural effusions. --Sputum culture MRSA --Initial blood cultures negative -Repeat blood cultures negative -- Urine culture negative --CT head:Normal CT of the head without contrast. 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 Metastatic colon cancer Malignant pleural effusion Malignant adenocarcinoma of right pleural space Ongoing persistent nausea, vomiting, generalized pain --Per prior attending: Patient's surgical oncologist Dr. Johnson reached out on March 01, 2025. I provided update on patient's current condition. He reports that unfortunately patient does have recurrence of colon cancer given elevated tumor markers. --Very poor prognosis Palliative care discussed with oncologist--if condition improves, needs follow- up with oncology for palliative chemotherapy Acute kidney injury Multifactorial: Prerenal, ATN, obstructive Hydroureteronephrosis --S/P cystoscopy and left ureteral stent placement Upper GI bleeding Esophagitis Gastritis Acute blood loss anemia/ Acute on chronic anemia --S/P EGD --S/P PRBCs Continued PPI drip, Carafate for comfort only Total Time Total Time Spent Total Time Spent (In Minutes): 20 Discharge Plan Discharge Items Patient Disposition: Reason For Visit: severe left sided abd pain, uti Discharge Diagnosis: Metastatic colon cancer Condition on Discharge: Fair Follow-up/Referrals: Annie Ch DO [Primary Care Provider] - () Medications and DC Order Prescriptions: No Action hydromorphone [Dilaudid] 4 mg tablet 4 mg PO Q4H PRN (Reason: severe cancer pain) 30 Days Qty: 180 0RF famotidine 20 mg tablet 20 mg PO BID lorazepam 0.5 mg tablet 0.5 mg PO TID PRN (Reason: Anxiety) buspirone 10 mg tablet 10 mg PO BID escitalopram oxalate 20 mg tablet 20 mg PO DAILY Eliquis 5 mg tablet 5 mg PO BID pregabalin 50 mg capsule 50 mg PO BID Qty: 30 0RF ondansetron 8 mg tablet,disintegrating 8 mg PO Q8H PRN (Reason: Nausea) methocarbamol [Robaxin] 500 mg Tablet 1,000 mg PO QID PRN (Reason: NEEDED PER PT) Admission Data Admit Date/Time: 02/27/25 04:37 Attending Provider: Flo Shabazz Admit Provider: Brendan Mcgill Primary Care Provider: Annie Ch Other Providers: Brooke Velásquez; Santiago Richardson; Brendan Mcgill; Reynaldo Torres; Tj Zuleta; Dahiana Beverly; Sammie Hurst; Jose David Palafox; Baltazar Tenorio; Isaac Atkinson; Philippe Ricci I.; Dwight Romero II; Britany Ruiz; Andre Guillermo; Les Magana; Zari Mena; Dwight Bullock; Aubrey Ng; Colt Chacon; Barbara Seymour; Lela Valle; Sheridan Painting; Mary Avalos; Phil Pandya; Jose E Muse; Sarbjit Baugh; Jero So S; Ava Stevens; Sierra Tamez; Caty De La Paz; Dee Page; Chris Rogers; Tremaine Winslow; Barbi Arceo; Bob Zaldivar Jr; Noe Burns; Adam Cheema; Earl Eisenberg; Arlen Wright; Bhupinder Vidal I; Kimberly Andino; Nikhil Paez; Kanu Peña; Nicholas Kamara; Sarah Zimmerman; Dave Aly; Eliza Pastrana; Carmita Huynh; Britany Hardin; [facility]; Charles Carlisle
--- NOTE | 2025-03-27 11:20 | Palliative Care Progress Note ---
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 Thank you for allowing us to participate in the ongoing care of this patient. Please page with any additional concerns. Mikaela Hurst DNP Director, Palliative Medicine Admission and Anticipated Discharge Date Admission Date: February 27, 2025 Subjective ate entry note pt seen and evaluated 03/26 at 1245pm in bed, semi comatose eyes open to verbal, not speaking, unable to answer questions, does not track grimacing and slightly moaning Deanna is alone in her room, no family is present Review of Systems Review of Systems: Unobtainable due to cognitive status and Unobtainable due to reduced consciousness Physical Exam Physical Exam: Lying supine lethargic/semi comatose eyes open to verbal, do not focus or track unable to follow commands gurgling respirations bilat rhonchi s1s2, mild JVD Abd TTP with grimacing noted, +ostomy legs pale, inc edema RLE > LLE skin cool, dusky fingers and toes +marvin pallor PG Care Time/CCT Total # of Minutes Spent Total Time Spent: 55 Total Time Spent with Patient: Total time spent is greater than 50% in coordination of care (as documented) at patient's floor/unit and/or counseling patient: Coding [place] [address] SUB INP/OBS CARE 3/50MIN Patient Type Established History Comprehensive Exam Comprehensive Medical Decision Making High Complexity Diagnoses Cancer related pain G89.3 Palliative care by specialist Z51.5 Comfort measures only status Z51.5 Generalized abdominal pain R10.84 Abdominal location: generalized (4) Abdominal pain Abdominal location: generalized Qualified Code(s): R10.84 - Generalized abdominal pain
== END 2025-03-26 18:35 | disposition expired | DRG 853 ==
LOC: ED 23:02 → SUATTDRO 02-27 04:37 → EDINP 02-27 04:37 → 3E 02-27 05:01 → 2S 03-04 10:46 → 1E 03-16 13:01 → 3E 03-18 23:31
DX: C78.7 Secondary malignant neoplasm of liver and intrahepatic bile duct; J91.0 Malignant pleural effusion; F41.9 Anxiety disorder, unspecified; D62 Acute posthemorrhagic anemia; Z66 Do not resuscitate; R31.9 Hematuria, unspecified; Z95.828 Presence of other vascular implants and grafts; R11.2 Nausea with vomiting, unspecified; C78.6 Secondary malignant neoplasm of retroperitoneum and peritoneum; N17.0 Acute kidney failure with tubular necrosis; Z93.3 Colostomy status; C18.9 Malignant neoplasm of colon, unspecified; K21.00 Gastro-esophageal reflux disease with esophagitis, without bleeding; A41.9 Sepsis, unspecified organism; Z98.84 Bariatric surgery status; N13.6 Pyonephrosis; E87.6 Hypokalemia; F32.A Depression, unspecified; K56.600 Partial intestinal obstruction, unspecified as to cause; K29.71 Gastritis, unspecified, with bleeding; Z86.711 Personal history of pulmonary embolism; Z79.01 Long term (current) use of anticoagulants; G93.41 Metabolic encephalopathy; E86.1 Hypovolemia; Z96.0 Presence of urogenital implants; B37.49 Other urogenital candidiasis; Z88.1 Allergy status to other antibiotic agents; Z16.12 Extended spectrum beta lactamase (ESBL) resistance; K59.00 Constipation, unspecified; I82.401 Acute embolism and thrombosis of unspecified deep veins of right lower extremity; N10 Acute pyelonephritis; Z51.5 Encounter for palliative care; G89.3 Neoplasm related pain (acute) (chronic); J15.212 Pneumonia due to Methicillin resistant Staphylococcus aureus; D84.9 Immunodeficiency, unspecified